=== PATIENT | male | born 1955 | race Caucasian/White ===

== ENCOUNTER 2018-08-13 04:38 | Observation (INO) ==
[2018-08-13] MEDS ORDERED: PIPERACILLIN/TAZOBACTAM 4.5 GM/120 ML BAG IV STA (05:14)
[2018-08-13] MEDS ORDERED: VANCOMYCIN HCL 2,750 MG in SODIUM CHLORIDE 0.9% 500 ML IV STA (05:14)
[2018-08-13] MEDS ORDERED: VANCOMYCIN CONSULT ACTIVE PRN (05:14)
[2018-08-13] MEDS ORDERED: SODIUM CHLORIDE 0.9% 1000ML 1,000 ML IV ONE (05:16)
[2018-08-13] MEDS ORDERED: NITROGLYCERIN 2% OINTMENT 30GM TUBE EXT STA (05:17)
[2018-08-13] MEDS ORDERED: ASPIRIN CHEW 324 MG PO STA (05:17)
[2018-08-13 05:54] LABS: Basophils # (auto) 0.02 K/uL (0-0.2); Basophils % (auto) 0.2 %; Eosinophils # (auto) 0.18 K/uL (0-0.5); Hematocrit (blood only) 43.9 % (42-52); Hemoglobin 14.6 g/dL (14.0-18.0); Immature Granulocytes % (auto) 1.1 %; Lymphocytes # (auto) 1.65 K/uL (1.2-3.4); Lymphocytes % (auto) 17.9 %; Mean Corpuscular Hgb Conc 33.3 g/dL (32-36); Mean Corpuscular Volume 94.6 fL (80-100); Mean Platelet Volume 9.9 fL (7.4-10.4); Monocytes % (auto) 10.9 %; Neutrophils # (auto) 6.26 K/uL (1.4-6.5); Neutrophils % (auto) 67.9 %; Platelet Count 220 K/uL (130-400); RDW Standard Deviation 51.6 fL (36.4-46.3); Red Blood Count 4.64 M/uL (4.7-6.1); White Blood Count 9.21 K/uL (4.8-10.8)
[2018-08-13 06:19] LABS: Albumin Level 3.3 gm/dl (3.4-5.0); BUN Creatinine Ratio 18.3 (10-20); Bilirubin,Total 0.3 mg/dl (0.2-1); Calcium 8.3 mg/dl (8.5-10.1); Creatinine Clr Calc Pharmacy 96.8 ml/min; Est GFR (African American) 91.8; Est GFR (Non-African American) 79.2; Globulin 3.4 gm/dl (2.5-4.0); Potassium 3.6 mmol/L (3.5-5.1); Total Protein 6.7 gm/dl (6.4-8.2)
--- NOTE | 2018-08-13 06:29 | XRay Report ---
XR knee LT 2V routine HISTORY: 63 years-old Male Free air acute left knee pain with possible soft tissue infection COMPARISON: None available TECHNIQUE: 2 views of the left knee FINDINGS: Moderate circumferential soft tissue swelling about the knee. No acute fracture, dislocation or opaqu e foreign body. No deep tissue air. Mild medial patellofemoral compartment osteoarthritis. IMPRESSION: Soft tissue swelling without acute fracture or dislocation. The above report was generated using voice recognition software. It may contain grammatical, syntax o r spelling errors. Electronically signed by: Filemon Wright M.D. 08/13/2018 6:26 AM
--- NOTE | 2018-08-13 07:02 | Emergency Department Note ---
Entered by Bernard Allen acting as a scribe for Liane Hughes MD History of Present Illness General Chief complaint: Infection Stated complaint: LEFT LEG INFECTION Source: patient Mode of arrival: ambulatory Limitations: no limitations History of Present Illness Onset (ago): unknown (Tonight) Location: knee (Left) Pain Consistency: + other (Increased) Relieved By: + none Associated symptoms: + other (Left knee pain); no fever/chills The patient is a 63 year old male who presents to the ED with his due to complaints of increased skin redness around his left knee which began tonight. Patient states the symptoms began with a �water� blister on his knee a couple of weeks ago. He states the blister has now resolved which is when the redness and loss of skin began. Patient adds that he does have mild left knee pain. Patient�s past medical history includes asthma which he takes Prednisone. He adds that he recently took Doxycycline for an infection but is not taking it currently. Patient denies any recent changes to his medications. 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 Patient� s PCP is from [place]. Patient denies fevers and a history of smoking/ diabetes. Home Medications Home Medications Medication Instructions Recorded Confirmed Type albuterol sulfate 1 vial CONTINUOUS NEBULIZATION Q4 08/13/18 08/13/18 History PRN albuterol sulfate 2 puff INHALATION Q4 PRN 08/13/18 08/13/18 History fluticasone-salmeterol 1 puff INHALATION BID 08/13/18 08/13/18 History levalbuterol tartrate 2 puff INHALATION QID PRN 08/13/18 08/13/18 History losartan 100 mg PO DAILY 08/13/18 08/13/18 History meloxicam 7.5 mg PO DAILY 08/13/18 08/13/18 History metaxalone 800 mg PO TID 08/13/18 08/13/18 History metoprolol succinate 25 mg PO DAILY 08/13/18 08/13/18 History mometasone 2 spray INTRANASAL DAILY 08/13/18 08/13/18 History montelukast 10 mg PO DAILY 08/13/18 08/13/18 History prednisone 40 mg PO DAILY 08/13/18 08/13/18 History tiotropium bromide 18 mcg INHALATION DAILY 08/13/18 08/13/18 History cephalexin [Keflex] 500 mg PO Q6H 8 Days #32 cap 08/15/18 Rx sulfamethoxazole-trimethoprim 1 tab PO Q12H #16 tab 08/15/18 Rx [Bactrim DS] Allergies Allergy/AdvReac Type Severity Reaction Status Date / Time amoxicillin AdvReac Intermediate made me Verified 08/13/18 15:28 feel weird Past Med/Surg History Medical History Chronic sinusitis Long-term current use of steroids Allergic bronchopulmonary aspergillosis JOANN (obstructive sleep apnea) Asthma Benign essential HTN Cellulitis (Acute) Ulcer of left knee (Acute) Asthma DVT prophylaxis HTN (hypertension) Hernia Family History Other Asthma Social History Current Living Situation: Spouse Feels Safe at Home: Yes Smoking Status: Never smoker Hx Alcohol Use: No Hx Substance Use: No Beliefs That Will Affect Care: None Preferred Language: [place]ian Communication Ability: Effective Review of Systems See HPI for pertinent positives & negatives. and A total of 10 systems reviewed and were otherwise negative Physical Exam Vital Signs Vital Signs - 24 hr 08/15/18 02:42 08/15/18 07:05 08/15/18 08:11 Temperature 36.8 C Temperature Source Oral Pulse Rate [Apical] Pulse Rate [Left Finger] 90 93 H 80 Respiratory Rate 18 18 18 Respiratory Effort / Characteristics Non-Labored Spontaneous Non-Labored Spontaneous Respiratory Depth Blood Pressure [Left Arm] Blood Pressure [Right Arm] 146/79 H Blood Pressure Mean [Right Arm] 101 Pulse Oximetry 92 97 99 Oxygen Delivery Method Room Air Room Air Room Air 08/15/18 09:00 08/15/18 14:03 08/15/18 14:22 Temperature 36.8 C Temperature Source Pulse Rate [Apical] 88 Pulse Rate [Left Finger] 91 H 80 Respiratory Rate 16 18 Respiratory Effort / Characteristics Non-Labored Non-Labored Spontaneous Respiratory Depth Normal Blood Pressure [Left Arm] 144/84 H Blood Pressure [Right Arm] 146/79 H Blood Pressure Mean [Right Arm] Pulse Oximetry 93 99 Oxygen Delivery Method Room Air Room Air Vital signs reviewed. General: Well-appearing obese male, in no significant distress. HEENT: No scleral icterus, PERRLA, neck supple. Atraumatic. Cardiovascular: Regular rate and rhythm, no extra sounds. Pulmonary: Clear to auscultation bilaterally, normal work of breathing. Abdomen: Soft, nontender, nondistended, positive bowel sounds. Musculoskeletal: Atraumatic, no peripheral edema. Neurologic: Patient awake alert and oriented x 3, full strength in all 4 extremities. Skin: 4cm ulceration to the left patella, erythematous rash proximal to ulceration in a graphic -like pattern, tracking to mid thigh with several large vesicles. Areas of vesicular disruption with underlying open skin. Otherwise warm and dry Course 0503: Past medical records reviewed. The patient was evaluated in room A4, and a complete history and physical examination were performed. 0645: Upon reevaluation, the patient will be further evaluated. I updated the patient on his findings and treatment plan. Patient is agreeable to the treatment plan. Patient will be assessed for further evaluation. Consultations Consultation #1: I reviewed the patient's case with Dr. Staton. He will evaluate the patient for further management. Time: 06:34 Administered Medications Discontinued Medications Aspirin (Aspirin) 243 mg PO NOW STA Stop: 08/13/18 05:18 Last Admin: 08/13/18 05:59 Dose: Not Given Fluticasone Propionate (Flonase) 2 sprays NA DAILY RASHIDA; Protocol Stop: 09/12/18 09:21 Last Admin: 08/15/18 08:12 Dose: 2 sprays Admin: 08/14/18 07:19 Dose: 2 sprays Admin: 08/13/18 10:41 Dose: 2 sprays Guaifenesin (Mucinex) 1,200 mg PO Q12 RASHIDA Stop: 09/12/18 09:59 Last Admin: 08/15/18 08:14 Dose: 1,200 mg Admin: 08/14/18 20:20 Dose: 1,200 mg Admin: 08/14/18 07:20 Dose: 1,200 mg Admin: 08/13/18 20:30 Dose: 1,200 mg Admin: 08/13/18 10:16 Dose: 1,200 mg Hydralazine HCl (Hydralazine Hcl) 10 mg IV Q6H PRN PRN Reason: htn Stop: 09/12/18 10:59 Last Admin: 08/14/18 07:19 Dose: 10 mg Admin: 08/13/18 23:22 Dose: 10 mg Sodium Chloride (Nss 1000ml) 1,000 mls @ 999 mls/hr IV .Q1H1M ONE Stop: 08/13/18 06:16 Last Infusion: 08/13/18 06:39 Dose: 0 mls/hr Admin: 08/13/18 05:42 Dose: 999 mls/hr Vancomycin HCl 2,750 mg/ (Sodium Chloride) 555 mls @ 200 mls/hr IV NOW STA Stop: 08/13/18 08:00 Last Infusion: 08/13/18 08:29 Dose: 0 mls/hr Admin: 08/13/18 05:42 Dose: 200 mls/hr Piperacillin Sod/Tazobactam Sod (Zosyn) 4.5 gm in 120 mls @ 200 mls/hr IV NOW STA Stop: 08/13/18 05:49 Last Infusion: 08/13/18 06:27 Dose: Infusion: 08/13/18 06:12 Dose: 0 mls/hr Admin: 08/13/18 05:42 Dose: 200 mls/hr Clindamycin Phosphate 900 mg/ (Dextrose) 106 mls @ 100 mls/hr IV Q8H [facility] Stop: 08/23/18 08:44 Last Infusion: 08/13/18 10:14 Dose: 0 mls/hr Admin: 08/13/18 09:00 Dose: 100 mls/hr Sodium Chloride (Nss 1000ml) 1,000 mls @ 80 mls/hr IV .[id number] [facility] Stop: 09/12/18 09:21 Last Infusion: 08/14/18 12:10 Dose: 0 mls/hr Admin: 08/14/18 08:49 Dose: 80 mls/hr Infusion: 08/14/18 08:49 Dose: 0 mls/hr Admin: 08/13/18 20:30 Dose: 80 mls/hr Infusion: 08/13/18 20:30 Dose: 80 mls/hr Admin: 08/13/18 09:59 Dose: 80 mls/hr Piperacillin Sod/Tazobactam (Sod 4.5 gm/ Dextrose) 120 mls @ 30 mls/hr IV Q8H [facility]; Protocol Stop: 08/23/18 15:59 Last Infusion: 08/15/18 12:15 Dose: 0 mls/hr Admin: 08/15/18 08:14 Dose: 30 mls/hr Infusion: 08/15/18 04:48 Dose: 0 mls/hr Admin: 08/14/18 23:27 Dose: 30 mls/hr Infusion: 08/14/18 19:30 Dose: 0 mls/hr Admin: 08/14/18 15:30 Dose: 30 mls/hr Infusion: 08/14/18 11:34 Dose: 0 mls/hr Admin: 08/14/18 07:18 Dose: 30 mls/hr Infusion: 08/14/18 04:58 Dose: 0 mls/hr Admin: 08/13/18 22:55 Dose: 30 mls/hr Infusion: 08/13/18 19:36 Dose: 0 mls/hr Admin: 08/13/18 15:36 Dose: 30 mls/hr Vancomycin HCl 1,500 mg/ (Sodium Chloride) 530 mls @ 200 mls/hr IV Q10H RASHIDA Stop: 08/14/18 15:00 Last Infusion: 08/14/18 14:40 Dose: 0 mls/hr Admin: 08/14/18 11:50 Dose: 200 mls/hr Infusion: 08/14/18 04:58 Dose: 0 mls/hr Admin: 08/14/18 01:30 Dose: 200 mls/hr Infusion: 08/13/18 18:50 Dose: 0 mls/hr Admin: 08/13/18 15:58 Dose: 200 mls/hr Vancomycin HCl 1,500 mg/ (Sodium Chloride) 530 mls @ 200 mls/hr IV Q12H RASHIDA Stop: 08/23/18 15:59 Last Admin: 08/15/18 12:16 Dose: 200 mls/hr Infusion: 08/15/18 02:39 Dose: 0 mls/hr Admin: 08/14/18 23:27 Dose: 200 mls/hr Ioversol (Optiray 320 100ml) 94 ml IV ONCE PRN PRN Reason: Interaction Checking Stop: 08/17/18 20:11 Last Admin: 08/13/18 20:13 Dose: 94 ml Levalbuterol HCl (Xopenex 1.25mg/3ml Neb) 1.25 mg NEB Q6R RASHIDA Stop: 09/12/18 09:21 Last Admin: 08/15/18 14:03 Dose: 1.25 mg Admin: 08/15/18 07:04 Dose: 1.25 mg Admin: 08/15/18 02:42 Dose: 1.25 mg Admin: 08/14/18 19:46 Dose: 1.25 mg Admin: 08/14/18 13:48 Dose: 1.25 mg Admin: 08/14/18 07:08 Dose: 1.25 mg Admin: 08/14/18 02:39 Dose: Not Given Admin: 08/13/18 19:35 Dose: 1.25 mg Admin: 08/13/18 14:14 Dose: 1.25 mg Admin: 08/13/18 11:37 Dose: Not Given Losartan Potassium (Cozaar) 100 mg PO DAILY RASHIDA Stop: 09/12/18 09:21 Last Admin: 08/15/18 08:13 Dose: 100 mg Admin: 08/14/18 07:20 Dose: 100 mg Admin: 08/13/18 10:16 Dose: 100 mg Metaxalone (Skelaxin) 800 mg PO TID RASHIDA Stop: 09/12/18 09:21 Last Admin: 08/15/18 13:51 Dose: 800 mg Admin: 08/15/18 08:13 Dose: 800 mg Admin: 08/14/18 20:20 Dose: 800 mg Admin: 08/14/18 14:02 Dose: 800 mg Admin: 08/14/18 07:20 Dose: 800 mg Admin: 08/13/18 20:30 Dose: 800 mg Admin: 08/13/18 13:39 Dose: 800 mg Admin: 08/13/18 10:16 Dose: 800 mg Metoprolol Succinate (Toprol Xl) 25 mg PO DAILY RASHIDA Stop: 09/12/18 09:21 Last Admin: 08/15/18 08:13 Dose: 25 mg Admin: 08/14/18 07:20 Dose: 25 mg Admin: 08/13/18 10:16 Dose: 25 mg Montelukast Sodium (Singulair) 10 mg PO DAILY RASHIDA Stop: 09/12/18 09:21 Last Admin: 08/15/18 08:13 Dose: 10 mg Admin: 08/14/18 07:20 Dose: 10 mg Admin: 08/13/18 10:16 Dose: 10 mg Nitroglycerin (Nitro-Bid 2%) 1 inch EXT NOW STA Stop: 08/13/18 05:18 Last Admin: 08/13/18 05:59 Dose: Not Given Prednisone (Prednisone) 20 mg PO DAILY RASHIDA Stop: 09/13/18 08:59 Last Admin: 08/15/18 08:13 Dose: 20 mg Admin: 08/14/18 07:20 Dose: 20 mg Prednisone (Prednisone) 20 mg PO NOW STA Stop: 08/15/18 10:04 Last Admin: 08/15/18 10:49 Dose: 20 mg Fluticasone/Salmeterol (Advair Diskus 500/50) 1 puffs INH BID RASHIDA Stop: 09/12/18 09:59 Last Admin: 08/15/18 08:12 Dose: 1 puffs Admin: 08/14/18 20:19 Dose: 1 puffs Admin: 08/14/18 07:19 Dose: 1 puffs Admin: 08/13/18 20:29 Dose: 1 puffs Admin: 08/13/18 10:15 Dose: 1 puffs Tiotropium [place] (Spiriva) 1 puffs INH DAILY RASHIDA Stop: 09/12/18 09:59 Last Admin: 08/15/18 08:14 Dose: 1 puffs Admin: 08/14/18 07:21 Dose: 1 puffs Admin: 08/13/18 10:15 Dose: 1 puffs Medical Decision Making Differential Diagnosis Differential diagnosis: Etiologies such as cellulitis, abscess, osteomyelitis, MRSA infection, DVT, necrotizing fasciitis, dermatitis, drug eruption, as well as others were entertained. Medical Records Attestation: I reviewed the patient's medical records. Home Medications Current Medication List: was personally reviewed by me Laboratory Data Attestation: I reviewed the patient's lab results. Result diagrams: 08/15/18 05:52 08/15/18 05:52 Lab Results 08/13/18 08/13/18 08/13/18 Range/Units 05:28 05:28 05:37 WBC 9.21 (4.8-10.8) K/uL RBC 4.64 L (4.7-6.1) M/uL Hgb 14.6 (14.0-18.0) g/dL Hct 43.9 (42-52) % MCV 94.6 (80-100) fL MCH 31.5 (25-34) pg MCHC 33.3 (32-36) g/dL RDW Std Deviation 51.6 H (36.4-46.3) fL RDW Coeff of Karishma 15.0 H (11.5-14.5) % Plt Count 220 (130-400) K/uL MPV 9.9 (7.4-10.4) fL Immature Gran % (Auto) 1.1 % Neut % (Auto) 67.9 % Lymph % (Auto) 17.9 % [place] % (Auto) 10.9 % Eos % (Auto) 2.0 % Baso % (Auto) 0.2 % Immature Gran # (Auto) 0.10 H (0.00-0.02) K/uL Neut # (Auto) 6.26 (1.4-6.5) K/uL Lymph # (Auto) 1.65 (1.2-3.4) K/uL [place] # (Auto) 1.00 H (0.11-0.59) K/uL Eos # (Auto) 0.18 (0-0.5) K/uL Baso # (Auto) 0.02 (0-0.2) K/uL Sodium 144 (136-145) mmol/L Potassium 3.6 (3.5-5.1) mmol/L Chloride 111 H (98-107) mmol/L Carbon Dioxide 25 (21-32) mmol/L Anion Gap 8.0 (3-11) BUN 18 (7-18) mg/dl Creatinine 1.00 (0.6-1.4) mg/dl Est Cr Clr Drug Dosing 96.8 ml/min Est GFR ( Amer) 91.8 Est GFR (Non-Af Amer) 79.2 BUN/Creatinine Ratio 18.3 (10-20) Glucose 107 H (70-99) mg/dl Lactate 2.1 H* (0.4-2.0) mmol/L Calcium 8.3 L (8.5-10.1) mg/dl Total Bilirubin 0.3 (0.2-1) mg/dl AST 16 (15-37) U/L ALT 45 (12-78) U/L Alkaline Phosphatase 67 (45-117) U/L Troponin I Cancelled Total Protein 6.7 (6.4-8.2) gm/dl Albumin 3.3 L (3.4-5.0) gm/dl Globulin 3.4 (2.5-4.0) gm/dl Albumin/Globulin Ratio 1.0 (0.9-2) Specimen Hemolysis Nasal Screen MRSA (PCR) (Negative) Vancomycin Trough (See Comment) mcg/ml 08/13/18 08/13/18 08/14/18 Range/Units 11:19 16:35 05:18 WBC 8.63 (4.8-10.8) K/uL RBC 4.52 L (4.7-6.1) M/uL Hgb 14.0 (14.0-18.0) g/dL Hct 42.7 (42-52) % MCV 94.5 (80-100) fL MCH 31.0 (25-34) pg MCHC 32.8 (32-36) g/dL RDW Std Deviation 51.9 H (36.4-46.3) fL RDW Coeff of Karishma 15.0 H (11.5-14.5) % Plt Count 178 (130-400) K/uL MPV 9.8 (7.4-10.4) fL Immature Gran % (Auto) % Neut % (Auto) % Lymph % (Auto) % [place] % (Auto) % Eos % (Auto) % Baso % (Auto) % Immature Gran # (Auto) (0.00-0.02) K/uL Neut # (Auto) (1.4-6.5) K/uL Lymph # (Auto) (1.2-3.4) K/uL [place] # (Auto) (0.11-0.59) K/uL Eos # (Auto) (0-0.5) K/uL Baso # (Auto) (0-0.2) K/uL Sodium (136-145) mmol/L Potassium (3.5-5.1) mmol/L Chloride (98-107) mmol/L Carbon Dioxide (21-32) mmol/L Anion Gap (3-11) BUN (7-18) mg/dl Creatinine (0.6-1.4) mg/dl Est Cr Clr Drug Dosing ml/min Est GFR ( Amer) Est GFR (Non-Af Amer) BUN/Creatinine Ratio (10-20) Glucose (70-99) mg/dl Lactate 0.9 (0.4-2.0) mmol/L Calcium (8.5-10.1) mg/dl Total Bilirubin (0.2-1) mg/dl AST (15-37) U/L ALT (12-78) U/L Alkaline Phosphatase (45-117) U/L Troponin I Total Protein (6.4-8.2) gm/dl Albumin (3.4-5.0) gm/dl Globulin (2.5-4.0) gm/dl Albumin/Globulin Ratio (0.9-2) Specimen Hemolysis Nasal Screen MRSA (PCR) Negative (Negative) Vancomycin Trough (See Comment) mcg/ml 08/14/18 08/14/18 08/15/18 Range/Units 05:18 11:31 05:52 WBC 8.60 (4.8-10.8) K/uL RBC 4.55 L (4.7-6.1) M/uL Hgb 14.2 (14.0-18.0) g/dL Hct 43.2 (42-52) % MCV 94.9 (80-100) fL MCH 31.2 (25-34) pg MCHC 32.9 (32-36) g/dL RDW Std Deviation 52.1 H (36.4-46.3) fL RDW Coeff of Karishma 15.0 H (11.5-14.5) % Plt Count 164 (130-400) K/uL MPV 9.6 (7.4-10.4) fL Immature Gran % (Auto) % Neut % (Auto) % Lymph % (Auto) % [place] % (Auto) % Eos % (Auto) % Baso % (Auto) % Immature Gran # (Auto) (0.00-0.02) K/uL Neut # (Auto) (1.4-6.5) K/uL Lymph # (Auto) (1.2-3.4) K/uL [place] # (Auto) (0.11-0.59) K/uL Eos # (Auto) (0-0.5) K/uL Baso # (Auto) (0-0.2) K/uL Sodium (136-145) mmol/L Potassium (3.5-5.1) mmol/L Chloride (98-107) mmol/L Carbon Dioxide (21-32) mmol/L Anion Gap (3-11) BUN (7-18) mg/dl Creatinine 0.89 (0.6-1.4) mg/dl Est Cr Clr Drug Dosing 108.8 ml/min Est GFR ( Amer) 104.7 Est GFR (Non-Af Amer) 90.4 BUN/Creatinine Ratio (10-20) Glucose (70-99) mg/dl Lactate (0.4-2.0) mmol/L Calcium (8.5-10.1) mg/dl Total Bilirubin (0.2-1) mg/dl AST (15-37) U/L ALT (12-78) U/L Alkaline Phosphatase (45-117) U/L Troponin I Total Protein (6.4-8.2) gm/dl Albumin (3.4-5.0) gm/dl Globulin (2.5-4.0) gm/dl Albumin/Globulin Ratio (0.9-2) Specimen Hemolysis Nasal Screen MRSA (PCR) (Negative) Vancomycin Trough 14.6 (See Comment) mcg/ml 08/15/18 Range/Units 05:52 WBC (4.8-10.8) K/uL RBC (4.7-6.1) M/uL Hgb (14.0-18.0) g/dL Hct (42-52) % MCV (80-100) fL MCH (25-34) pg MCHC (32-36) g/dL RDW Std Deviation (36.4-46.3) fL RDW Coeff of Karishma (11.5-14.5) % Plt Count (130-400) K/uL MPV (7.4-10.4) fL Immature Gran % (Auto) % Neut % (Auto) % Lymph % (Auto) % [place] % (Auto) % Eos % (Auto) % Baso % (Auto) % Immature Gran # (Auto) (0.00-0.02) K/uL Neut # (Auto) (1.4-6.5) K/uL Lymph # (Auto) (1.2-3.4) K/uL [place] # (Auto) (0.11-0.59) K/uL Eos # (Auto) (0-0.5) K/uL Baso # (Auto) (0-0.2) K/uL Sodium (136-145) mmol/L Potassium (3.5-5.1) mmol/L Chloride (98-107) mmol/L Carbon Dioxide (21-32) mmol/L Anion Gap (3-11) BUN (7-18) mg/dl Creatinine 0.94 (0.6-1.4) mg/dl Est Cr Clr Drug Dosing 103.0 ml/min Est GFR ( Amer) 98.9 Est GFR (Non-Af Amer) 85.3 BUN/Creatinine Ratio (10-20) Glucose (70-99) mg/dl Lactate (0.4-2.0) mmol/L Calcium (8.5-10.1) mg/dl Total Bilirubin (0.2-1) mg/dl AST (15-37) U/L ALT (12-78) U/L Alkaline Phosphatase (45-117) U/L Troponin I Total Protein (6.4-8.2) gm/dl Albumin (3.4-5.0) gm/dl Globulin (2.5-4.0) gm/dl Albumin/Globulin Ratio (0.9-2) Specimen Hemolysis Nasal Screen MRSA (PCR) (Negative) Vancomycin Trough (See Comment) mcg/ml Imaging Data Attestation: I personally reviewed and interpreted this imaging study as follows : My Impression: Knee x-ray shows no fracture, no dislocation, and no free air Blood Pressure Blood Pressure Findings: Elevated blood pressure Blood Pressure Disposition: further management by hospitalist MICHELLE Narrative This patient was evaluated and appeared to be in no significant distress. Physical examination is concerning for a large ulceration over the left patella with new graphic-like erythematous rash with large vesicles. Most of the vesicles have ruptured with an underlying open skin draining serous fluid. The patient is afebrile with a normal white blood cell count. He states the rash to the distal left thigh is new over the last 24 hours. The ulceration over the patella has been there for several weeks. X-ray of the knee was performed and reveals no acute fracture or dislocation. There is no evidence of subcutaneous free air. Patient was medicated with IV vancomycin and IV Zosyn. Consultation with the medicine service was placed. Patient will be observed in the hospital for further management. He is aware of the plan and agrees. Impression & Plan Cellulitis, Skin desquamation, Ulcer of left knee Discharge Plan Visit Data *Final* Discharge Date/Time: 08/13/18 08:38 Chief Complaint: Infection Stated Complaint: LEFT LEG INFECTION ED Provider: Liane Hughes Discharge Problem: Cellulitis, Skin desquamation, Ulcer of left knee Patient Disposition: Admitted As Inpatient Discharge Instructions Interventions: ED Discharge Assessment Last Done: 08/13/18 08:38 The scribe's documentation has been prepared under my direction and personally reviewed by me in its entirety. I confirm that the note above accurately reflects all work, treatment, procedures, and medical decision making performed by me.
--- NOTE | 2018-08-13 07:55 | History & Physical Report ---
Addendum entered and electronically signed by Velia Ruvalcaba PA-C 08/13/18 09:04: Addendum (Blank) Addendum August 13, 2018 09:03 LA elevated at 2.1, will recheck later this morning Start NSS at 80 ml/hr General surgery consult NPO for now, if no surgical needs then will give diet. Original Note: Date of Service August 13, 2018 Assessment & Plan (1) Cellulitis: (2) Ulcer of left knee: - Admit to med/surg for obs -Patient was started on Zosyn and Vanco in the ER, will continue vancomycin and clindamycin IV -WBC is 9K, afebrile, BP elevated at 178/99, HR = 110. -Consult wound, patient will need outpatient referral -Wound culture of knee, check MRSA swab. -Pain control with Tylenol -Patient is on chronic prednisone for respiratory issues. -X-ray reviewed, soft tissue swelling without acute fracture or foreign body. 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 Not requiring supplemental O2. -Consider CXR if change in sx. -When asked about history of COPD the patient says possibly, unknown if the patient has had formal PFTs. He follows with [facility] pulmonology/extension work director as outpatient. 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 (5) JOANN (obstructive sleep apnea): -Does not wear supplemental O2 or CPAP. (6) Allergic bronchopulmonary aspergillosis: -Patient reports infection occurred a few years ago, he has been following with an extension work director, Dr. Mobley, patient has never required bronchoscopy. (7) Long-term current use of steroids: -Patient has been on prednisone 40 mg to 5 mg over the past 5-6 years, he has been unable to wean off this completely. (8) Chronic sinusitis: -Patient uses nbfz-hzi-zznugri medications for symptom relief, currently stable (9) DVT prophylaxis: History of Present Illness Chief Complaint: Left knee wound Primary Care Provider: Martinez Bardales This is a 63 yo M with PMHx of severe persistent asthma, COPD on chronic prednisone for 5-6 years, hx of allergic bronchopulmonary aspergillosis, chronic sinusitis, sleep apnea, mixed rhinitis, and hypertension who presents with left knee wound. Pt reports his knee originally developed a blister "a few weeks" ago, and that he had used gauze and Porters salve to help reduce the blister and the soreness. He has been working to get this to heal since then and overnight his leg developed a larger blister on the thigh where the skin had sloughed off, and also developed surrounding reddness over the anterior and lateral portion of the thigh. He does have swelling in the lower extremities bilaterally. Pt denies fevers, sweats or chills. His is present at bedside and assists with a history. He has not taken any other medication for pain or inflammation. This morning patient has missed his morning meds because he presented to the ER around 5 AM. Pt has been started on vancomycin and zosyn in the ER. Xray of the knee is showing soft tissue swelling without acute fracture. His BP is elevated at 178/ 99 and HR is elevated at ~ 110. No fevers. WBC is 9K. He has no electrolyte abnormalities. Allergies Allergy/AdvReac Type Severity Reaction Status Date / Time amoxicillin AdvReac Intermediate made me Verified 08/13/18 15:28 feel weird Home Medications Home Medications Medication Instructions Recorded Confirmed Type albuterol sulfate 1 vial CONTINUOUS NEBULIZATION Q4 08/13/18 08/13/18 History PRN albuterol sulfate [Ventolin HFA] 2 puff INHALATION Q4 PRN 08/13/18 08/13/18 History fluticasone-salmeterol [Advair 1 puff INHALATION BID 08/13/18 08/13/18 History Diskus] levalbuterol tartrate [Xopenex HFA] 2 puff INHALATION QID PRN 08/13/18 08/13/18 History losartan 100 mg PO DAILY 08/13/18 08/13/18 History meloxicam 7.5 mg PO DAILY 08/13/18 08/13/18 History metaxalone 800 mg PO TID 08/13/18 08/13/18 History metoprolol succinate 25 mg PO DAILY 08/13/18 08/13/18 History mometasone 2 spray INTRANASAL DAILY 08/13/18 08/13/18 History montelukast 10 mg PO DAILY 08/13/18 08/13/18 History prednisone 40 mg PO DAILY 08/13/18 08/13/18 History tiotropium bromide [Spiriva with 18 mcg INHALATION DAILY 08/13/18 08/13/18 History HandiHaler] Past Med/Surg History Medical History DVT prophylaxis Chronic sinusitis Long-term current use of steroids Allergic bronchopulmonary aspergillosis JOANN (obstructive sleep apnea) Asthma Benign essential HTN Cellulitis (Acute) Ulcer of left knee (Acute) Asthma HTN (hypertension) Hernia Family History Other Asthma Social History Current Living Situation: Spouse Other Information That Helps Us Care for You: No Feels Safe at Home: Yes Safety Concerns: Feels Safe At This Time Smoking Status: Never smoker Hx Alcohol Use: No Hx Substance Use: No Beliefs That Will Affect Care: None Preferred Language: Austrian Communication Ability: Effective Physical Exam 2 Vital Signs (Past 24 Hours): Last Vital Signs Temp 36.4 C L 08/13/18 04:49 Pulse 110 H 08/13/18 07:48 Resp 16 08/13/18 07:48 BP 178/99 H 08/13/18 07:48 Pulse Ox 98 08/13/18 07:48 Results & Data Diagnostic Findings XR knee LT 2V routine HISTORY: 63 years-old Male Free air acute left knee pain with possible soft tissue infection COMPARISON: None available TECHNIQUE: 2 views of the left knee FINDINGS: Moderate circumferential soft tissue swelling about the knee. No acute fracture , dislocation or opaque foreign body. No deep tissue air. Mild medial patellofemoral compartment osteoarthritis. IMPRESSION: Soft tissue swelling without acute fracture or dislocation. Supervising Physician Co-Signing Physician Notes PA Physician Supervision Note: I interviewed and examined the patient. Discussed with Jazmin NOYOLA and agree with findings and plan as documented in the note. Any exceptions or clarifications are listed here: None I independently did interview and examine the patient in the ER the presence of his I also revisited the patient up in his room. The patient has a acute onset of a left lateral thigh erythema burning pain and bullae which are draining serous fluid. There is some discoloration of his skin which looks to be a possible cellulitis. The patient has had a pre-existing ulcerative lesion on his knee for some time. Patient was feeling ill with chills and fatigue the ER his lactic acid was normal but clinically is leg showed sloughing of skin and fairly substantial changes concern for necrotizing fasciitis. Patient been on chronic prednisone for his asthma. Patient is admitted to the hospital he is on vancomycin Zosyn and clindamycin. Surgical consultation undertaken as well as possible plastic surgery consultation Documented By: Bernard Jordan _ (1) Cellulitis Laterality: Site of cellulitis: Site of cellulitis of extremity: Site of cellulitis of trunk: (2) Ulcer of left knee Non-pressure ulcer stage:
[2018-08-13] MEDS ORDERED: CLINDAMYCIN 900 MG in DEXTROSE 5% 100 ML IV SCH (08:45)
[2018-08-13] MEDS ORDERED: ONDANSETRON INJ 2 MG/ML 2 ML VIAL IV PRN (09:22)
[2018-08-13] MEDS ORDERED: ALBUTEROL HFA 8 GM INHALER INH PRN (09:22)
[2018-08-13] MEDS ORDERED: LEVALBUTEROL TARTRATE 15 GM HFA.AER.AD INH PRN (09:22)
[2018-08-13] MEDS ORDERED: ACETAMINOPHEN 325 MG TAB PO PRN (09:22)
[2018-08-13] MEDS ORDERED: ALBUTEROL 0.083% NEBU SOLN 3 ML VIAL INH PRN (09:22)
[2018-08-13] MEDS: SODIUM CHLORIDE 0.9% 1000ML 1,000 ML IV SCH ×2 (09:59→20:30)
[2018-08-13] MEDS: FLUTICASONE/SALMETEROL (ADVAIR) 500/50 INH 14 PUFF INH SCH ×2 (10:15→20:29)
[2018-08-13] MEDS: TIOTROPIUM BROMIDE 5 PUFF/90 MCG INH INH SCH (10:15)
[2018-08-13] MEDS: METAXALONE 800 MG TABLET PO SCH ×3 (10:16→20:30)
[2018-08-13] MEDS: MONTELUKAST SODIUM 10 MG TABLET PO SCH (10:16)
[2018-08-13] MEDS: LOSARTAN POTASSIUM 50 MG TAB PO SCH (10:16)
[2018-08-13] MEDS: METOPROLOL SUCC 25MG EXT REL TAB PO SCH (10:16)
[2018-08-13] MEDS: guaiFENesin 600 MG TABCR PO SCH ×2 (10:16→20:30)
[2018-08-13] MEDS: FLUTICASONE PROPIONATE NA SPR 16 GM BTL SCH (10:41)
[2018-08-13] MEDS: LEVALBUTEROL HCL 1.25 MG/3 ML NEB NEB SCH ×3 (11:37→19:35)
--- NOTE | 2018-08-13 13:35 | Surgery Consultation ---
Date of Consultation August 13, 2018 Assessment & Plan (1) Cellulitis: Patient seen and examined with Dr. Dhaliwal. At this time no indication for surgical intervention. Recommend further workup- CT scan, wound care consult, may consider consulting orthopedics. IV abx per primary service. General Surgery will continue to follow. Please call with questions or concerns. Supervising Physician Co-Signing Physician Notes Pnt S&E, labs and imaging reviewed, agree with above. 63 year old male on steroids for lung disease, admitted with cellulititis to [facility]. Wound overlying left patella of unknown source for past month, pain and erythema started yesterday. Some blistering. Pain well controlled, some blotchy erythema with bullae and blistering. No significant edema, no crepitus. No pain out of proportion to exam. wbc normal, no left shift. lactate elevated. vitals normal. knee xray normal. chronic lle wound with cellulitis and bullae. Low suspicion for NSTI at this time. recommend CT extremity wound care consult broad spectrum abx, wound culture no surgical intervention at this time if signs of NSTI develop, recommend transfer to tertiary center due to extensive resection, wound care, an recovery that will be needed surgery will follow History of Present Illness Attending Physician: Bernard Jordan MD History of Present Illness Mr. Gao is a 63-year-old male who presented to [facility] ED for evaluation of increasing redness around non-healing wound of left knee. Patient reports that he has had this wound on his left knee for at least several weeks. He states that the wound began as a "water blister." He denies trauma or injury to his left knee. Patient is on chronic prednisone for breathing problems- reports that he had been on 5mg for a period of time, but daily dose was increased to 40mg. Patient recently completed a course of Doxycyline for possible respiratory infection. Patient denies fevers or chills. Allergies Allergy/AdvReac Type Severity Reaction Status Date / Time amoxicillin Allergy Intermediate max me Verified 08/13/18 09:43 feel weird Home Medications Home Medications Medication Instructions Recorded Confirmed Type albuterol sulfate 1 vial CONTINUOUS NEBULIZATION Q4 08/13/18 08/13/18 History PRN albuterol sulfate [Ventolin HFA] 2 puff INHALATION Q4 PRN 08/13/18 08/13/18 History fluticasone-salmeterol [Advair 1 puff INHALATION BID 08/13/18 08/13/18 History Diskus] levalbuterol tartrate [Xopenex HFA] 2 puff INHALATION QID PRN 08/13/18 08/13/18 History losartan 100 mg PO DAILY 08/13/18 08/13/18 History meloxicam 7.5 mg PO DAILY 08/13/18 08/13/18 History metaxalone 800 mg PO TID 08/13/18 08/13/18 History metoprolol succinate 25 mg PO DAILY 08/13/18 08/13/18 History mometasone 2 spray INTRANASAL DAILY 08/13/18 08/13/18 History montelukast 10 mg PO DAILY 08/13/18 08/13/18 History prednisone 40 mg PO DAILY 08/13/18 08/13/18 History tiotropium bromide [Spiriva with 18 mcg INHALATION DAILY 08/13/18 08/13/18 History HandiHaler] Patient History Medical History DVT prophylaxis Chronic sinusitis Long-term current use of steroids Allergic bronchopulmonary aspergillosis JOANN (obstructive sleep apnea) Asthma Benign essential HTN Cellulitis (Acute) Ulcer of left knee (Acute) Asthma HTN (hypertension) Hernia Family History Other Asthma Social History Current Living Situation: Spouse Other Information That Helps Us Care for You: No Feels Safe at Home: Yes Safety Concerns: Feels Safe At This Time Smoking Status: Never smoker Hx Alcohol Use: No Hx Substance Use: No Beliefs That Will Affect Care: None Preferred Language: Portuguese Communication Ability: Effective Physical Exam 2 Vital Signs (Past 24 Hours): Last Vital Signs Temp 36.3 C L 08/13/18 08:50 Pulse 98 H 08/13/18 11:14 Resp 18 08/13/18 08:50 BP 150/82 H 08/13/18 11:14 Pulse Ox 95 08/13/18 08:50 Skin: + erythema (area of erythema marked with skin marker. ) left knee- non-healing wound,non-tender with palpation, skin bullae, no drainage appreciated on physical examination. _ (1) Cellulitis Laterality: Site of cellulitis: Site of cellulitis of extremity: Site of cellulitis of trunk:
[2018-08-13] MEDS ORDERED: PIPERACILL/TAZOBAC CONSULT ACTIVE PRN (15:04)
[2018-08-13] MEDS: PIPERACILLIN/TAZOBACTAM 4.5 GM in DEXTROSE 5% 100 ML IV SCH ×2 (15:36→22:55)
--- NOTE | 2018-08-13 15:49 | Pharmacy Report ---
Pharmacy Abx Initial Consult - Date of Service August 13, 2018 - Pharmacy Dosing Scope Date of Consult: 08/13 Consultation requested by: Amalia Ruvalcaba, PAC Pharmacy is consulted to initiate vancomycin and Zosyn IV dosing therapy, order appropriate labs and adjust drug dose/frequency. - Subjective The patient is a 63 year old M admitted on 08/13/18 07:58. - Objective Height: 5 ft 11 in Weight: 116.3 kg (BMI = 35.8) Vital Signs (Past 12hrs): Vital Signs Temp Pulse Pulse Resp BP BP BP 08/13/18 14:14 106 H 18 08/13/18 11:14 98 H 150/82 H 08/13/18 08:50 36.3 C L 109 H 18 199/98 H 08/13/18 07:48 110 H 16 178/99 H 08/13/18 06:30 100 H 17 171/101 H 08/13/18 05:48 101 H 14 192/99 H 08/13/18 04:49 36.4 C L 107 H 19 178/94 H Pulse Ox 08/13/18 14:14 94 08/13/18 11:14 08/13/18 08:50 95 08/13/18 07:48 98 08/13/18 06:30 96 08/13/18 05:48 96 08/13/18 04:49 95 Lab Results (24hrs): Laboratory Tests (24 Hours) 08/13/18 08/13/18 05:28 05:28 WBC 9.21 Neut # (Auto) 6.26 Creatinine 1.00 Est Cr Clr Drug Dosing 96.8 Micro Results: 08/13/18 05:37 Blood Culture - Pending Blood 08/13/18 05:28 Blood Culture - Pending Blood - Risk Factors for Resistance * Immunocompromised (chronic steroid therapy) - Assessment & Plan Assessment 63 year old M admitted with severe leg cellulitis, with purulence noted. I spoke with Velia regarding initial antibiotics for vanc + clinda. Patient does not have an amoxicillin allergy and may need gram negative coverage w/ risk factors, so therapy is being changed to vanc + Zosyn (which is what patient received in the ED). MRSA swab has been ordered as the patient may have some pulmonary involvement as well. Plan Vancomycin IV * Estimated PK Parameters: Vd 0.61 L/kg, Karlos 0.085 hr-1, t1/2 8.2 hr * Loading dose: 2750 mg (23.7 mg/kg) - given @ 0600 in the ED * Maintenance dose: 1500 mg IV (13 mg/kg) every 10 hours * Goal trough level : 15 to 20 mcg/mL until pulm component r/o * Trough level ordered for 08/14/18 prior to the 4th dose * A less than traditional dose and/or extended dosing interval has/have been selected due to likelihood of drug accumulation in obese patient Piperacillin/tazobactam * 4.5 g IV extended infusion every 8 hours for CrCl greater than 20 mL/min * Aggressive dosing selected due to BMI 35 or more Pharmacy will continue to follow and will adjust dose/frequency as necessary. Thank you.
[2018-08-13] MEDS: VANCOMYCIN HCL 1,500 MG in SODIUM CHLORIDE 0.9% 500 ML IV SCH (15:58)
[2018-08-13] MEDS ORDERED: IOVERSOL 100ml IV PRN (20:12)
--- NOTE | 2018-08-13 21:08 | CT Scan Report ---
LEFT KNEE CT CT DOSE: 268.85 mGy.cm HISTORY: Left knee infection. Eval extent of cellulitis, necrotizing fasc? TECHNIQUE: Multiaxial CT images of the left knee were performed and reformatted in the sagittal and c oronal plane without the use of contrast. A dose lowering technique was utilized adhering to the bird Nicholson. COMPARISON: Left knee 08/13/2018. FINDINGS: There is left anterolateral distal thigh and prepatellar skin thickening with subcutaneous edema. No loculated fluid collections to suggest an abscess at this time. There is suggestion of a fe w scattered skin blisters at this location. Trace knee effusion. The muscle compartments appear intac t. No soft tissue gas identified. Mild scattered calcified plaque within the femoral and popped arter ies. No significant stenosis of the major arterial structures. No fracture or dislocation within the left knee. No bony destruction to suggest osteomyelitis. Mild cartilage space narrowing within the me dial compartment of the left knee consistent with osteoarthritis. No radiopaque foreign bodies. IMPRESSION: 1. Left anterolateral distal thigh and prepatellar skin thickening, subcutaneous edema, and skin blis ters consistent with the patient's history of cellulitis. No loculated fluid collections to suggest a n abscess. No soft tissue gas. 2. Trace knee effusion. 3. No bony abnormality. Electronically signed by: Parish Arias M.D. 08/13/2018 9:06 PM
[2018-08-13] MEDS: HydrALAZINE HCL 20 MG/ML VIAL IV PRN (23:22)
[2018-08-14] MEDS: VANCOMYCIN HCL 1,500 MG in SODIUM CHLORIDE 0.9% 500 ML IV SCH ×3 (01:30→23:27)
[2018-08-14] MEDS: LEVALBUTEROL HCL 1.25 MG/3 ML NEB NEB SCH ×4 (02:39→19:46)
[2018-08-14 05:55] LABS: Hematocrit (blood only) 42.7 % (42-52); Mean Corpuscular Hgb Conc 32.8 g/dL (32-36); Mean Corpuscular Volume 94.5 fL (80-100); Mean Platelet Volume 9.8 fL (7.4-10.4); Platelet Count 178 K/uL (130-400); RDW Standard Deviation 51.9 fL (36.4-46.3); Red Blood Count 4.52 M/uL (4.7-6.1); White Blood Count 8.63 K/uL (4.8-10.8)
[2018-08-14 06:29] LABS: Creatinine Clr Calc Pharmacy 108.8 ml/min; Est GFR (African American) 104.7; Est GFR (Non-African American) 90.4
[2018-08-14] MEDS: PIPERACILLIN/TAZOBACTAM 4.5 GM in DEXTROSE 5% 100 ML IV SCH ×3 (07:18→23:27)
[2018-08-14] MEDS: HydrALAZINE HCL 20 MG/ML VIAL IV PRN (07:19)
[2018-08-14] MEDS: FLUTICASONE/SALMETEROL (ADVAIR) 500/50 INH 14 PUFF INH SCH ×2 (07:19→20:19)
[2018-08-14] MEDS: FLUTICASONE PROPIONATE NA SPR 16 GM BTL SCH (07:19)
[2018-08-14] MEDS: METOPROLOL SUCC 25MG EXT REL TAB PO SCH (07:20)
[2018-08-14] MEDS: MONTELUKAST SODIUM 10 MG TABLET PO SCH (07:20)
[2018-08-14] MEDS: guaiFENesin 600 MG TABCR PO SCH ×2 (07:20→20:20)
[2018-08-14] MEDS: METAXALONE 800 MG TABLET PO SCH ×3 (07:20→20:20)
[2018-08-14] MEDS: predniSONE 20 MG TAB PO SCH (07:20)
[2018-08-14] MEDS: LOSARTAN POTASSIUM 50 MG TAB PO SCH (07:20)
[2018-08-14] MEDS: TIOTROPIUM BROMIDE 5 PUFF/90 MCG INH INH SCH (07:21)
[2018-08-14] MEDS: SODIUM CHLORIDE 0.9% 1000ML 1,000 ML IV SCH (08:49)
[2018-08-14] MEDS ORDERED: predniSONE 20 MG TAB PO SCH (09:00)
[2018-08-14] MEDS ORDERED: VANCOMYCIN TROUGH ONE (11:30)
--- NOTE | 2018-08-14 12:17 | Pharmacy Report ---
Pharmacy Abx Dose Short Note - Date of Service August 14, 2018 - Assessment & Plan Assessment 63 year old M receiving vancomycin and Zosyn for treatment of purulent leg cellulitis w/ possible pulmonary component as well Day # 2 of antimicrobial therapy. MRSA swab negative SCr remains stable at 0.89 mg/dL Plan Vancomycin * Trough level of 14.6 mcg/mL is therapeutic; however, I'm anticipating accumulation with the patient's elevated BMI * Change to 1500 mg IV every 12 hours * Goal trough level for cellulitis : 10 to 15 mcg/mL; lower goal range now that MRSA pneumonia is r/o * Will plan to repeat trough level Sunday or Sunday, depending on plan for IV abx duration * Monitor SCr closely with several risk factors for nephrotoxicity Zosyn * Continue 4.5 gm IV q8h for CrCl > 20 mL/min and elevated BMI Pharmacy will continue to follow and will adjust dose/frequency as necessary. Thank you.
--- NOTE | 2018-08-14 13:23 | Surgery Progress Note ---
Date of Service August 14, 2018 Assessment & Plan (1) Cellulitis: Patient seen and examined with Dr. Dhaliwal. CT scan of knee reviewed by Dr. Dhaliwal. No surgical intervention indicated. Continue local wound care. General Surgery will sign off at this time. Please call with questions or concerns. Subjective Patient resting comfortably in bed- dressings have been placed on left knee- improvement in erythema. Physical Exam 2 Vital Signs (Past 24 Hours): Last Vital Signs Temp 36.3 C L 08/14/18 08:30 Pulse 86 08/14/18 09:11 Resp 20 08/14/18 08:30 BP 164/84 H 08/14/18 09:11 Pulse Ox 96 08/14/18 08:30 Skin: dressings peeled back to view wound- area of erythema has receded a bit. _ (1) Cellulitis Laterality: Site of cellulitis: Site of cellulitis of extremity: Site of cellulitis of trunk:
--- NOTE | 2018-08-14 14:11 | Hospitalist Progress Note ---
Date of Service August 14, 2018 Assessment & Plan (1) Cellulitis: (2) Ulcer of left knee: - Admit to med/surg for obs -Patient was started on Zosyn and Vanco in the ER, will continue vancomycin and clindamycin IV -WBC is 9K, afebrile, BP elevated at 178/99, HR = 110. -Consult wound, patient will need outpatient referral -bc pending, MRSA negative. -Pain control with Tylenol -Patient is on chronic prednisone for respiratory issues. -X-ray reviewed, soft tissue swelling without acute fracture or foreign body. (3) Benign essential HTN: - continues to be somewhat hypertensive - continue losartan 100 mg daily, metoprolol succinate 25 mg daily -IV hydralazine prn for elevated BP (4) Asthma: -Moderate persistent, continue levalbuterol nebulizers, Advair, Spiriva inh -Add mucinex, tessalon pearls with pt cough and congestion today but pt reports this is about his baseline. Not requiring supplemental O2. -Consider CXR if change in sx. -When asked about history of COPD the patient says possibly, unknown if the patient has had formal PFTs. He follows with [facility] pulmonology/disability rater as outpatient. 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 (5) JOANN (obstructive sleep apnea): -Does not wear supplemental O2 or CPAP. (6) Allergic bronchopulmonary aspergillosis: -Patient reports infection occurred a few years ago, he has been following with an disability rater, Dr. Mobley, patient has never required bronchoscopy. (7) Long-term current use of steroids: -Patient has been on prednisone 40 mg to 5 mg over the past 5-6 years, he has been unable to wean off this completely. (8) Chronic sinusitis: - Patient uses [id number] medications for symptom relief, currently stable (9) DVT prophylaxis: SCDs Subjective Mr. Gao is feeling much better today. He has been up walking. His pain is well controlled. Review of Systems All systems reviewed & are unremarkable except as noted in HPI & below Physical Exam 2 Vital Signs (Past 24 Hours): Last Vital Signs Temp 36.3 C L 08/14/18 08:30 Pulse 91 H 08/14/18 13:48 Resp 18 08/14/18 13:48 BP 164/84 H 08/14/18 09:11 Pulse Ox 97 08/14/18 13:48 Physical Exam: General: no distress Eyes: normal inspection, PERLL Respiratory: chest non tender, clear to auscultation, normal breath sounds, no respiratory distress, no accessory muscle use Cardiac: regular rate and rhythm, no rub or gallop, no murmur, no edema, no jvd GI/: active bowel sounds, no abd pain or tenderness, soft, non distended Extremities: normal range of motion, normal strength, non tender Neuro/Psych: alert and oriented x 3, normal mood and affect Skin: normal color, dry, left leg with receding erythema, open sores with minimal drainage Results & Data Laboratory Results Abnormal lab results 08/14/18 Range/Units 05:18 RBC 4.52 L (4.7-6.1) M/uL RDW Std Deviation 51.9 H (36.4-46.3) fL RDW Coeff of Karishma 15.0 H (11.5-14.5) % _ (1) Cellulitis Laterality: Site of cellulitis: Site of cellulitis of extremity: Site of cellulitis of trunk: (2) Ulcer of left knee Non-pressure ulcer stage:
[2018-08-15] MEDS: LEVALBUTEROL HCL 1.25 MG/3 ML NEB NEB SCH ×3 (02:42→14:03)
[2018-08-15 06:02] LABS: Hematocrit (blood only) 43.2 % (42-52); Hemoglobin 14.2 g/dL (14.0-18.0); Mean Corpuscular Hgb Conc 32.9 g/dL (32-36); Mean Corpuscular Volume 94.9 fL (80-100); Mean Platelet Volume 9.6 fL (7.4-10.4); Platelet Count 164 K/uL (130-400); RDW Standard Deviation 52.1 fL (36.4-46.3); Red Blood Count 4.55 M/uL (4.7-6.1)
[2018-08-15 06:31] LABS: Est GFR (African American) 98.9; Est GFR (Non-African American) 85.3
[2018-08-15] MEDS: FLUTICASONE PROPIONATE NA SPR 16 GM BTL SCH (08:12)
[2018-08-15] MEDS: FLUTICASONE/SALMETEROL (ADVAIR) 500/50 INH 14 PUFF INH SCH (08:12)
[2018-08-15] MEDS: MONTELUKAST SODIUM 10 MG TABLET PO SCH (08:13)
[2018-08-15] MEDS: predniSONE 20 MG TAB PO SCH (08:13)
[2018-08-15] MEDS: METOPROLOL SUCC 25MG EXT REL TAB PO SCH (08:13)
[2018-08-15] MEDS: LOSARTAN POTASSIUM 50 MG TAB PO SCH (08:13)
[2018-08-15] MEDS: METAXALONE 800 MG TABLET PO SCH ×2 (08:13→13:51)
[2018-08-15] MEDS: guaiFENesin 600 MG TABCR PO SCH (08:14)
[2018-08-15] MEDS: TIOTROPIUM BROMIDE 5 PUFF/90 MCG INH INH SCH (08:14)
[2018-08-15] MEDS: PIPERACILLIN/TAZOBACTAM 4.5 GM in DEXTROSE 5% 100 ML IV SCH (08:14)
[2018-08-15] MEDS ORDERED: predniSONE 20 MG TAB PO STA (10:03)
[2018-08-15] MEDS: VANCOMYCIN HCL 1,500 MG in SODIUM CHLORIDE 0.9% 500 ML IV SCH (12:16)
--- NOTE | 2018-08-15 14:04 | Discharge Summary ---
Date of Service August 15, 2018 Admission HPI Per Admitting Provider This is a 63 yo M with PMHx of severe persistent asthma, COPD on chronic prednisone for 5-6 years, hx of allergic bronchopulmonary aspergillosis, chronic sinusitis, sleep apnea, mixed rhinitis, and hypertension who presents with left knee wound. Pt reports his knee originally developed a blister "a few weeks" ago, and that he had used gauze and Porters salve to help reduce the blister and the soreness. He has been working to get this to heal since then and overnight his leg developed a larger blister on the thigh where the skin had sloughed off, and also developed surrounding reddness over the anterior and lateral portion of the thigh. He does have swelling in the lower extremities bilaterally. Pt denies fevers, sweats or chills. His is present at bedside and assists with a history. He has not taken any other medication for pain or inflammation. This morning patient has missed his morning meds because he presented to the ER around 5 AM. Pt has been started on vancomycin and zosyn in the ER. Xray of the knee is showing soft tissue swelling without acute fracture. His BP is elevated at 178/ 99 and HR is elevated at ~ 110. No fevers. WBC is 9K. He has no electrolyte abnormalities. Principal Diagnosis Cellulitis Discharge Exam Constitutional WD/WN, vitals as above Respiratory no respiratory distress, no labored breathing and does not use accessory muscles expiratory wheezes bilaterally Cardiovascular RRR, no murmur, no edema Gastrointestinal (Abdomen) normal bowel sounds, soft, nontender, no hepatosplenomegaly Musculoskeletal no cyanosis or clubbing, extremities motor strength 5/5 Skin left leg erythema resolved. Wounds on knee and thigh with small amount of serous drainage. Discharge Data Allergies Allergy/AdvReac Type Severity Reaction Status Date / Time amoxicillin AdvReac Intermediate made me Verified 08/13/18 15:28 feel weird Consultations 08/13/18 06:59 ED Decision to Admit Stat 08/13/18 09:22 Consult General Surgery Routine Ordered Studies 08/13/18 15:25 CT knee LT w con Stat Hospital Course (1) Cellulitis: (2) Ulcer of left knee: -Zosyn and Vanco inpatient - will send home with Keflex and Bactrim for 8 days for total of 10 days treatment -Consulted wound care nurse - patient will follow with wound center and will have home health to perform dressing changes -BC no growth, MRSA swab negative -Pain control with Tylenol -Patient is on chronic prednisone for respiratory issues. -X-ray reviewed, soft tissue swelling without acute fracture or foreign body. (3) Benign essential HTN: - continue losartan 100 mg daily, metoprolol succinate 25 mg daily (4) Asthma: -Moderate persistent, continue levalbuterol nebulizers, Advair, Spiriva inh -Added mucinex, tessalon pearls but pt reports he is about his baseline. Not requiring supplemental O2. Patient ambulated the halls without difficulty a number of times today and feels ready for discharge. Will have him follow up with his steward/stewardess wine next week. 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 (5) JOANN (obstructive sleep apnea): -Does not wear supplemental O2 or CPAP. (6) Allergic bronchopulmonary aspergillosis: -Patient reports infection occurred a few years ago, he has been following with an steward/stewardess wine (7) Long-term current use of steroids: -Patient has been on prednisone 40 mg to 5 mg over the past 5-6 years, he has been unable to wean off this completely. Will discharge with his current home dose of 40 mg with instructions to follow up with his steward/stewardess wine next week. (8) Chronic sinusitis: - Patient uses [id number] medications for symptom relief, currently stable (9) DVT prophylaxis: SCDs Total Time Total Time Spent Total Time Spent (In Minutes): greater than 30 minutes Discharge Plan Discharge Items Patient Disposition: Home - Home Health Services Reason For Visit: KNEE WOUND Discharge Diagnosis: Cellulitis Discharge Goals: Improve disease control Activity: Resume your previous activity Activity Comment: gradually as tolerated Non-emergency contact: Primary Care Provider Call non-emergency contact if: you have any medication questions, your symptoms worsen, your pain is not controlled, your pain is worsening, you have a fever, your wound has increased redness, your wound has increased drainage and your wound pain has increased Follow-up/Referrals: [facility] [Outside] - 08/23/18 1:30 pm (Please, follow up at [facility] on SundayAugust 23 at 1:30 pm. *This clinic is located at [address] in [place]. If you need to change this appointment, call the office at [phone].) Hedy Arredondo CRNP [Nurse Practitioner] - 08/21/18 8:40 am (Please, follow up at [facility] Pulmonology Office with Hedy DOWLING on SundayAugust 21 at 9:00 am (arrive 8:40 am). *This office is located in [address] of [facility] - big building next to this hospital. If you need to change this appointment, call the office at [phone].) Martinez Bardales [Primary Care Provider] - (Please, follow up with Dr. Martinez Bardales. *The office phone number is [phone].) Diet: Heart Healthy Addtl Provider Instructions: Please complete your entire course of antibiotics. Cefalexin should be taken 4 times per day and sulfamethoxazole-trimethoprim should be taken twice per day, both antibiotics for 8 days. Please see your primary care provider and steward/stewardess wine within a week. If your cellulitis gets worse or you run a fever, please tell your primary care provider right away. Home health will see you tomorrow. They should clean your wounds with saline and covered with Aquacel Ag and optifoam. Please follow up with the wound clinic. Their number is [phone] Prescriptions: New sulfamethoxazole-trimethoprim [Bactrim DS] 800-160 mg tablet 1 tab PO Q12H Qty: 16 RF: 0 cephalexin [Keflex] 500 mg capsule 500 mg PO Q6H 8 Days Qty: 32 RF: 0 Continue albuterol sulfate 2.5 mg /3 mL (0.083 %) solution for nebulization 1 vial Continuous Nebulization Q4 PRN (Reason: Shortness Of Breath Or Wheezing) RF: 0 fluticasone-salmeterol [Advair Diskus] 500-50 mcg/dose blister with device 1 puff Inhalation BID RF: 0 albuterol sulfate [Ventolin HFA] 90 mcg/actuation HFA aerosol inhaler 2 puff Inhalation Q4 PRN (Reason: Shortness Of Breath Or Wheezing) RF: 0 losartan 100 mg tablet 100 mg PO DAILY RF: 0 meloxicam 7.5 mg tablet 7.5 mg PO DAILY RF: 0 mometasone 50 mcg/actuation spray,non-aerosol 2 spray Intranasal DAILY RF: 0 montelukast 10 mg tablet 10 mg PO DAILY RF: 0 metoprolol succinate 25 mg tablet extended release 24 hr 25 mg PO DAILY RF: 0 metaxalone 800 mg tablet 800 mg PO TID RF: 0 tiotropium bromide [Spiriva with HandiHaler] 18 mcg capsule, w/inhalation device 18 mcg Inhalation DAILY RF: 0 levalbuterol tartrate [Xopenex HFA] 45 mcg/actuation HFA aerosol inhaler 2 puff Inhalation QID PRN (Reason: shortness breath) RF: 0 prednisone 40 mg tablet 40 mg PO DAILY RF: 0 Stand-Alone Forms: [facility] [place], Work/School Release (Inpt) Discharge Orders: Discharge Order (Routine); Ordered 08/15/18 Ordered By: Antonella Zacarias Admission Data Admit Date/Time: 08/13/18 07:58 Attending Provider: Bernard Jordan Admit Provider: Bernard Jordan Primary Care Provider: Martinez Bardales Other Providers: Skuhi Schwarz ; Wagner Staton Service: Medical
== END 2018-08-15 14:30 | disposition home health service (06) ==
LOC: ED 04:38 → 4W 04:38

== ENCOUNTER 2023-09-11 21:09 | Inpatient (IN) ==
[2023-09-11 22:37] LABS: Hematocrit (blood only) 39.3 % (42.0-52.0); Mean Corpuscular Hemoglobin 31.3 pg (25.0-34.0); Mean Corpuscular Hgb Conc 33.1 g/dL (32.0-36.0); Mean Corpuscular Volume 94.7 fL (80.0-100.0); Mean Platelet Volume 9.5 fL (9.4-12.4); Platelet Count 357 K/uL (130-400); RDW Coefficient of Variation 14.2 % (11.5-14.5); RDW Standard Deviation 48.9 fL (36.4-46.3); Red Blood Count 4.15 M/uL (4.70-6.10); White Blood Count 16.46 K/ul (4.8-10.8)
[2023-09-11 22:54] LABS: Alanine Aminotransferase 64 U/L (7-52); Albumin Globulin Ratio 0.7 (0.9-2); Albumin Level 3.4 gm/dl (3.4-5.0); Alkaline Phosphatase 93 U/L (34-104); Anion Gap 13 (3-11); Aspartate Aminotransferase 56 U/L (13-39); BUN Creatinine Ratio 28.3 (10-20); Basophils # (auto) 0.02 K/uL (0.00-0.20); Basophils % (auto) 0.1 %; Bilirubin,Total 0.6 mg/dl (0.2-1.0); Blood Urea Nitrogen 28 mg/dl (6-23); Calcium 9.6 mg/dl (8.6-10.3); Carbon Dioxide 21 mmol/L (21-32); Chloride 105 mmol/L (98-107); Eosinophils # (auto) 0.01 K/uL (0.00-0.50); Eosinophils % (auto) 0.1 %; Est GFR (African American) 89.7 ml/min; Est GFR (Non-African American) 77.4 ml/min; Globulin 4.7 gm/dl (2.5-4.0); Glucose 80 mg/dl (70-99(Fasting)); Immature Granulocytes # (auto) 0.09 K/uL (0.01-0.20); Immature Granulocytes % (auto) 0.5 %; Lymphocytes # (auto) 0.23 K/uL (1.20-3.40); Lymphocytes % (auto) 1.4 %; Monocytes # (auto) 0.17 K/uL (0.11-0.59); Neutrophils # (auto) 15.94 K/uL (1.40-6.50); Neutrophils % (auto) 96.9 %; Potassium 3.9 mmol/L (3.5-5.1); Sodium 139 mmol/L (136-145); Total Protein 8.1 gm/dl (6.0-8.3)
[2023-09-11 23:05] LABS: Partial Thromboplastin Ratio 0.9; Partial Thromboplastin Time 25 Seconds (21-31); Prothrombin Time 10.9 Seconds (9.0-12.0)
[2023-09-11 23:24] LABS: Appearance Urine Clear (Clear); Bacteria Urine Automated Negative (Negative); Bilirubin Urine Negative (Negative); Blood Urine Negative (Negative); Color Urine Yellow; Epithelial Cell Urine Auto 20-30 /lpf (0-5); Glucose Urine UA Negative (Negative); Ketones Urine Negative (Negative); Leukocyte Esterase Urine Negative (Negative); Nitrite Urine Negative (Negative); Protein Urine 1+ (Negative); RBC Urine Automated 0-4 /hpf (0-4); Specific Gravity Urine 1.029 (1.000-1.030); Urobilinogen Urine Negative (Negative); pH Urine 5.5 (4.5-7.5)
[2023-09-11 23:41] LABS: Creatine Kinase 30 U/L (30-223)
--- NOTE | 2023-09-11 23:51 | Emergency Department Note ---
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 Patient states he chronically has leg weakness but this feels different. He saw the family doctor and gave him a splint thinking this might be carpal tunnel. Patient denies vomiting, diarrhea, cough, congestion, flulike illness. Home Medications Medication Instructions Recorded Confirmed Type albuterol sulfate 2.5 mg/3 mL 1 vial continuous nebulization Q4 08/13/18 09/15/21 History (0.083 %) solution for nebulization PRN Shortness Of Breath Or Wheezing albuterol sulfate 90 mcg/actuation 2 puff inhalation Q4 PRN Shortness 08/13/18 09/15/21 History aerosol inhaler Of Breath Or Wheezing fluticasone 500 mcg-salmeterol 50 1 puff inhalation BID 08/13/18 09/15/21 History mcg/dose blistr powdr for inhalation meloxicam 7.5 mg tablet 7.5 mg PO QAM 08/13/18 09/15/21 History metaxalone 800 mg tablet 800 mg PO TID PRN Muscle Spasm 08/13/18 09/15/21 History metoprolol succinate 25 mg 25 mg PO QAM 08/13/18 09/15/21 History tablet,extended release 24 hr mometasone 50 mcg/actuation nasal 2 spray intranasal DAILY 08/13/18 09/15/21 History spray montelukast 10 mg tablet 10 mg PO QAM 08/13/18 09/15/21 History azelastine 137 mcg (0.1 %) nasal 1 spray intranasal DAILY 05/10/20 09/15/21 History spray aerosol prednisone 10 mg tablet 10 - 30 mg PO QAM 05/10/20 09/15/21 History pseudoephedrine-guaifenesin ER 60 1 tab PO BID PRN Congestion 05/10/20 09/15/21 History mg-600 mg tablet,extend release 12hr (Mucinex D) aspirin-caffeine 400 mg-32 mg 1 tab PO UD 09/15/21 09/15/21 History tablet (Anacin) cyclobenzaprine 5 mg tablet 5 mg PO BID PRN Muscle Spasm 09/15/21 09/15/21 History duloxetine 60 mg capsule,delayed 60 mg PO DAILY 09/15/21 09/15/21 History release gabapentin 100 mg capsule 300 mg PO HS 09/15/21 09/15/21 History hydrochlorothiazide 25 mg tablet 25 mg PO QAM 09/15/21 09/15/21 History losartan 50 mg tablet 50 mg PO QAM 09/15/21 09/15/21 History mepolizumab 100 mg subcutaneous 0 mg subcut .Q 4 WEEKS 09/15/21 09/15/21 History solution (Nucala) multivitamin 1 tab PO DAILY 09/15/21 09/15/21 History tiotropium bromide 2.5 2 puff inhalation DAILY 09/15/21 09/15/21 History mcg/actuation mist for inhalation (Spiriva Respimat) naproxen 500 mg tablet 500 mg PO BID PRN pain #60 tabs 02/23/23 Rx Allergies Allergy/AdvReac Type Severity Reaction Status Date / Time amoxicillin AdvReac Intermediate made me Verified 09/15/21 16:30 feel weird Past Med/Surg History Medical History Ambulates with cane Chronic sinusitis Long-term current use of steroids Allergic bronchopulmonary aspergillosis JOANN (obstructive sleep apnea) no device Asthma inhaler daily and prn Benign essential HTN HTN (hypertension) Hernia Surgical History History of colonoscopy History of tooth extraction History of tonsillectomy Status post uvulopalatopharyngoplasty History of ear surgery mastoid sx S/P hernia surgery Family History Grandfather (Paternal) Family history of diabetes mellitus Grandfather (Maternal) Family history of diabetes mellitus Family history of esophageal cancer Other Asthma No family history of adverse response to anesthesia Social History Smoking Status: Former smoker Second Hand Exposure: No; Do You Dip or Chew Tobacco: No (quit 10 years ago); Hx Alcohol Use: No Hx Substance Use: No Preferred Language: [place] Communication Ability: Effective [place] Hold Required: No Beliefs That Will Affect Care: None Current Living Situation: Spouse current occupational status: employed Feels Safe at Home: Yes Assistive Devices: Cane and Nebulizer Review of Systems A total of 10 systems reviewed and were otherwise negative Physical Exam Vital Signs Vital Signs - 24 hr 09/11/23 21:16 09/12/23 00:42 09/12/23 01:01 Temperature 36.7 C Temperature Source Temporal Artery Scan Pulse Rate 137 H 130 H Pulse Rate [Apical] 130 H Respiratory Rate 18 20 Respiratory Effort / Characteristics Non-Labored Spontaneous Respiratory Depth Normal Blood Pressure 138/72 Blood Pressure [Right Arm] 126/88 Blood Pressure Mean 94 Blood Pressure Mean [Right Arm] 100 Pulse Oximetry 92 95 Oxygen Delivery Method Room Air Room Air Sepsis Recent Fever Within 48 Hours No Sepsis New/Unexplained Change in Mental Status No Sepsis Action Taken by Nursing No Action Required 09/12/23 01:02 09/12/23 02:00 09/12/23 02:00 Temperature Temperature Source Pulse Rate 131 H Pulse Rate [Apical] Respiratory Rate 22 Respiratory Effort / Characteristics Respiratory Depth Blood Pressure 111/75 Blood Pressure [Right Arm] Blood Pressure Mean 88 Blood Pressure Mean [Right Arm] Pulse Oximetry 92 Oxygen Delivery Method Room Air Room Air Sepsis Recent Fever Within 48 Hours Sepsis New/Unexplained Change in Mental Status Sepsis Action Taken by Nursing 09/12/23 02:58 09/12/23 03:18 Temperature 36.9 C Temperature Source Oral Pulse Rate Pulse Rate [Apical] 137 H Respiratory Rate 22 Respiratory Effort / Characteristics Respiratory Depth Blood Pressure Blood Pressure [Right Arm] 125/88 Blood Pressure Mean Blood Pressure Mean [Right Arm] 100 Pulse Oximetry 94 Oxygen Delivery Method Room Air Sepsis Recent Fever Within 48 Hours Sepsis New/Unexplained Change in Mental Status Sepsis Action Taken by Nursing VITALS: Vitals are noted on the nurse's note and reviewed by myself. Vital signs mildly tachycardic. GENERAL: Pleasant gentleman, in no acute distress, nondiaphoretic, well- developed well-nourished. SKIN: Peripheral edema, the rest of the skin was without rashes, erythema, edema, or bruising. There is no tenting of the skin. Capillary reflex less than 2 seconds. HEAD: Normocephalic atraumatic. EARS: External auditory canals clear EYES: Pupils equal round and reactive to light and accommodation. Conjunctivae without injection, sclerae without icterus. Extraocular movements intact. NOSE: Patent, no discharge. MOUTH: Mucous membranes moist. Pharynx without erythema or exudate. Uvula midline. Airway patent. Tongue does not deviate. NECK: Supple without nuchal rigidity. No lymphadenopathy. No thyromegaly. Cervical spine is nontender. No JVD. HEART: Mildly tachycardic rate and rhythm LUNGS: Clear to auscultation bilaterally without wheezes, rales or rhonchi. No retractions or accessory muscle use. ABDOMEN: Positive bowel sounds x 4. Normal tympanic percussion. Soft, mid abdominal tenderness, without masses or organomegaly. Goode sign negative. No guarding or rebound tenderness. No CVA tenderness MUSCULOSKELETAL: No muscle atrophy, erythema, noted. +1 pitting edema to the hands and feet bilaterally NEURO: Patient was alert and oriented to person place and time. Normal sensation to light and sharp touch. No focal neurological deficits. Course Administered Medications Cefepime HCl 2,000 mg/ Syringe 20 mls @ 5 mls/min IV Q8H [facility]; Protocol Stop: 09/19/23 03:59 Last Admin: 09/12/23 04:43 Dose: 5 mls/min Documented By: AN Daptomycin 350 mg/ Syringe 7 mls @ 3.5 mls/min IV Q24H RASHIDA; Protocol Stop: 09/19/23 03:59 Last Admin: 09/12/23 04:43 Dose: 3.5 mls/min Documented By: AN Magnesium Sulfate/Dextrose (Magnesium Sulfate / D5w) 1 gm in 100 mls @ 50 mls/hr IV Q2H [facility] Stop: 09/12/23 08:14 Last Admin: 09/12/23 04:43 Dose: 50 mls/hr Documented By: AN Lorazepam (Lorazepam 0.5 Mg Tab) 0.5 mg PO TID PRN PRN Reason: Anxiety Stop: 10/12/23 03:37 Last Admin: 09/12/23 05:36 Dose: 0.5 mg Documented By: GLORIA Discontinued Medications Sodium Chloride (Nss) 1,000 mls @ 999 mls/hr IV .Q1H1M ONE Stop: 09/11/23 23:52 Last Infusion: 09/12/23 01:29 Dose: Infused Documented By: Admin: 09/12/23 00:29 Dose: 999 mls/hr Documented By: ESSIE Potassium Chloride/Sodium Chloride (Normal Saline W/20 Meq Kcl) 20 meq in 1,000 mls @ 500 mls/hr IV .Q2H ONE; Protocol Stop: 09/12/23 04:31 Last Admin: 09/12/23 03:21 Dose: 200 mls/hr Documented By: BESSY Ioversol (Optiray 320 125ml) 125 ml IV ONCE ONE Stop: 09/12/23 00:00 Last Admin: 09/11/23 23:59 Dose: 115 ml Documented By: ABDELRAHMAN Morphine Sulfate (Morphine Sulfate 4 Mg/Ml 1 Ml Carp\Vial) 4 mg IV NOW STA Stop: 09/12/23 02:36 Last Admin: 09/12/23 03:15 Dose: 4 mg Documented By: BESSY Ondansetron HCl (Ondansetron Inj 2 Mg/Ml 2 Ml Vial) 4 mg IV NOW STA Stop: 09/12/23 02:36 Last Admin: 09/12/23 03:15 Dose: 4 mg Documented By: BESSY Medical Decision Making Medical Records Attestation: I reviewed the patient's medical records. Home Medications Current Medication List: was personally reviewed by me Laboratory Data Attestation: I reviewed the patient's lab results. 09/12/23 03:52 09/12/23 03:52 Lab Results 09/11/23 09/11/23 09/12/23 Range/Units 22:15 22:52 00:55 WBC 16.46 H (4.8-10.8) K/ul RBC 4.15 L (4.70-6.10) M/uL Hgb 13.0 L (14.0-18.0) g/dl Hct 39.3 L (42.0-52.0) % MCV 94.7 (80.0-100.0) fL MCH 31.3 (25.0-34.0) pg MCHC 33.1 (32.0-36.0) g/dL RDW Std Deviation 48.9 H (36.4-46.3) fL RDW Coeff of Karishma 14.2 (11.5-14.5) % Plt Count 357 (130-400) K/uL MPV 9.5 (9.4-12.4) fL Immature Gran % (Auto) 0.5 % Neut % (Auto) 96.9 % Lymph % (Auto) 1.4 % Merrick % (Auto) 1.0 % Eos % (Auto) 0.1 % Baso % (Auto) 0.1 % Neut # (Auto) 15.94 H (1.40-6.50) K/uL Lymph # (Auto) 0.23 L (1.20-3.40) K/uL Merrick # (Auto) 0.17 (0.11-0.59) K/uL Eos # (Auto) 0.01 (0.00-0.50) K/uL Baso # (Auto) 0.02 (0.00-0.20) K/uL Immature Gran # (Auto) 0.09 (0.01-0.20) K/uL PT 10.9 (9.0-12.0) Seconds INR 1.0 (0.9-1.1) APTT 25 (21-31) Seconds PTT Ratio 0.9 Sodium 139 (136-145) mmol/L Potassium 3.9 (3.5-5.1) mmol/L Chloride 105 (98-107) mmol/L Carbon Dioxide 21 (21-32) mmol/L Anion Gap 13 H (3-11) BUN 28 H (6-23) mg/dl Creatinine 0.99 (0.6-1.4) mg/dl Est Cr Clr Drug Dosing Not Reportable Est GFR ( Amer) 89.7 ml/min Est GFR (Non-Af Amer) 77.4 ml/min BUN/Creatinine Ratio 28.3 H (10-20) Glucose 80 (70-99(Fasting)) mg/dl Calcium 9.6 (8.6-10.3) mg/dl Magnesium 1.7 (1.7-2.4) mg/dl Total Bilirubin 0.6 (0.2-1.0) mg/dl AST 56 H (13-39) U/L ALT 64 H (7-52) U/L Alkaline Phosphatase 93 (34-104) U/L Total Creatine Kinase 30 (30-223) U/L Troponin I High Sens 13.0 (0-20) pg/ml Total Protein 8.1 (6.0-8.3) gm/dl Albumin 3.4 (3.4-5.0) gm/dl Globulin 4.7 H (2.5-4.0) gm/dl Albumin/Globulin Ratio 0.7 L (0.9-2) Procalcitonin 0.52 H (0-0.5) ng/ml TSH 1.877 (0.300-4.500) uIu/ml Urine Color Yellow Urine Appearance Clear (Clear) Urine pH 5.5 (4.5-7.5) Ur Specific [place] 1.029 (1.000-1.030) Urine Protein 1+ H (Negative) Urine Glucose (UA) Negative (Negative) Urine Ketones Negative (Negative) Urine Blood Negative (Negative) Urine Nitrite Negative (Negative) Urine Bilirubin Negative (Negative) Urine Urobilinogen Negative (Negative) Ur Leukocyte Esterase Negative (Negative) Urine WBC (Auto) 1-5 (0-5) /hpf Urine RBC (Auto) 0-4 (0-4) /hpf U Hyaline Cast (Auto) 5-10 H (0-5) /lpf U Epithel Cells (Auto) 20-30 H (0-5) /lpf Urine Bacteria (Auto) Negative (Negative) Adenovirus (PCR) Not Detected (NotDetected) B. pertussis DNA (PCR) Not Detected (NotDetected) B.parapertussis DNA PCR Not Detected (NotDetected) C. pneumoniae DNA (PCR) Not Detected (NotDetected) Coronavirus OC43 (PCR) Not Detected (NotDetected) Coronavirus HKU1 (PCR) Not Detected (NotDetected) Coronavirus 229E (PCR) Not Detected (NotDetected) SARS-CoV-2 (PCR) Not Detected (NotDetected) Coronavirus NL63 (PCR) Not Detected (NotDetected) Human Metapneumovir PCR Not Detected (NotDetected) Influenza Type A (PCR) Not Detected (NotDetected) Influenza Type B (PCR) Not Detected (NotDetected) M. pneumoniae (PCR) Not Detected (NotDetected) Parainfluenza 1 (PCR) Not Detected (NotDetected) Parainfluenza 2 (PCR) Not Detected (NotDetected) Parainfluenza 3 (PCR) Not Detected (NotDetected) Parainfluenza 4 (PCR) Not Detected (NotDetected) RSV (PCR) Not Detected (NotDetected) Entero/Rhino (PCR) Not Detected (NotDetected) Imaging Data Attestation: I personally reviewed and interpreted this imaging study as follows: Radiologist's Impression: Abdomen/Pelvis CT 09/11/23 22:49 Exam(s): CT ABDOMEN + PELVIS With Contrast IV Amt: 115 ML OPTIRAY 320 EXAM: CT Abdomen and Pelvis With Intravenous Contrast CLINICAL HISTORY: Reason for exam: Abdominal and back pain, peripheral edema. TECHNIQUE: Axial computed tomography images of the abdomen and pelvis with intravenous contrast. CTDI is 27 mGy and DLP is 1446.47 mGy-cm. Automated exposure control was utilized for the study. A dose lowering technique was utilized adhering to the principles of ALARA. CONTRAST: Patient received 115 ML OPTIRAY 320 of IV contrast COMPARISON: No relevant prior studies available. FINDINGS: Lung bases: Unremarkable. No mass. No consolidation. ABDOMEN: Liver: Unremarkable. No mass. Gallbladder and bile ducts: Unremarkable. No calcified stones. No ductal dilation. Pancreas: Unremarkable. No mass. No ductal dilation. Spleen: Unremarkable. No splenomegaly. Adrenals: Unremarkable. No mass. Kidneys and ureters: Unremarkable. No solid mass. No hydronephrosis. Stomach and bowel: Unremarkable. No obstruction. No mucosal thickening. PELVIS: Appendix: No findings to suggest acute appendicitis. Bladder: Mild bladder distention. Reproductive: Unremarkable as visualized. ABDOMEN and PELVIS: Intraperitoneal space: Unremarkable. No free air. No significant fluid collection. Bones/joints: No acute fracture. No dislocation. Soft tissues: Unremarkable. Vasculature: Unremarkable. No abdominal aortic aneurysm. Lymph nodes: Unremarkable. No enlarged lymph nodes. IMPRESSION: No acute findings in the abdomen or pelvis. Electronically signed by: Shaq Parada MD 09/12/23 02:01 AM Chest CTA 09/11/23 22:49 Exam(s): CTA CHEST IV Amt: 115 ML OPTIRAY 320 EXAM: CT Angiography Chest With Intravenous Contrast CLINICAL HISTORY: Reason for exam: PE/peripheral edema, question obstruction. TECHNIQUE: Axial computed tomographic angiography images of the chest with intravenous contrast. CTDI is 28 mGy and DLP is 913.31 mGy-cm. Automated exposure control was utilized for the study. A dose lowering technique was utilized adhering to the principles of ALARA. MIP reconstructed images were created and reviewed. COMPARISON: No relevant prior studies available. FINDINGS: Pulmonary arteries: Unremarkable. No pulmonary embolism. Aorta: No acute findings. No thoracic aortic aneurysm. Lungs: Unremarkable. No mass. No consolidation. Pleural space: Unremarkable. No significant effusion. No pneumothorax. Heart: Unremarkable. No cardiomegaly. No significant pericardial effusion. No evidence of RV dysfunction. Bones/joints: No acute fracture. No dislocation. Soft tissues: Unremarkable. Lymph nodes: Unremarkable. No enlarged lymph nodes. IMPRESSION: Normal chest CTA. No pulmonary embolism. Electronically signed by: Shaq Parada MD 09/12/23 01:[address] 09/11/23 23:52 Exam(s): CT HEAD Without Contrast EXAM: CT Head Without Intravenous Contrast CLINICAL HISTORY: Reason for exam: ams. TECHNIQUE: Axial computed tomography images of the head/brain without intravenous contrast. CTDI is 38.24 mGy and DLP is 625.8 mGy-cm. Automated exposure control was utilized for the study. A dose lowering technique was utilized adhering to the principles of ALARA. COMPARISON: No relevant prior studies available. FINDINGS: Limitations: Exam limited secondary to patient motion artifact. Brain: Unremarkable. No hemorrhage. No significant white matter disease. No edema. Ventricles: Unremarkable. No ventriculomegaly. Bones/joints: Unremarkable. No acute fracture. Soft tissues: Unremarkable. Sinuses: Bilateral left greater right maxillary sinus inflammatory change. Mastoid air cells: Unremarkable as visualized. No mastoid effusion. IMPRESSION: Limited exam Grossly no acute findings in the head/brain. Electronically signed by: Shaq Parada MD 09/12/23 04:31 AM [facility] Narrative Prior records/ancillary studies reviewed and summarized above. Nursing notes reviewed. Additional history obtained from family. The patient's history was concerning for peripheral edema, dyspnea, abdominal pain and back pain and not feeling right who has CIDP and follows with neurology. Differential diagnosis: Etiologies such as nephritic syndrome, nephrotic syndrome, thyroid disorder, obstruction, metabolic, infection, hypo/hyperglycemia, electrolyte abnormalities, cardiac sources, intracerebral event, toxicologic, neurologic, as well as others were entertained. Physical examination: As above. ER treatment provided: IV Lock An order was placed for continuous cardiac monitoring. The monitor shows a rate of 60-1 50 with a sinus rhythm per my interpretation. IV fluids On reassessment the patient felt better. Diagnostics interpretation by me: ECG: Ordered for tachycardia EKG: Normal sinus, minimal ST depression in the anterior lateral leads, rate of 145. Impression sinus tachycardia with mild ST depression most likely rate dependent independently interpreted by myself The labs Independently Interpreted by myself revealed mild leukocytosis and patient has been on steroids Mild LFT elevation Euthyroid Imaging studies: Chest x-ray with mild fluid possibly in the fissure in the right lung per my independent or potation. CTs as above Consultation: A consultation was placed with the hospitalist. The case was discussed and diagnostics were reviewed. The patient was evaluated in the ER for further treatment. Exam and history seem consistent with peripheral edema and tachycardia with chest abdominal pain and back pain with unclear etiology. Medicine was consulted and the case discussed. Patient be admitted to the medical service for further evaluation and workup. Patient is agreeable. CTs were negative for obstruction. Urine not infected. No pneumonia. By the evaluation outlined above emergent etiologies such as electrolyte abnormalities, intracerebral event, toxologic, neurologic, abnormalities blood glucose, metabolic, as well as others were deemed relatively unlikely. The pt informed about the findings as listed above. All questions were answered and pleased with the treatment. The chart was completed utilizing [employer] Speech voice recognition software. Grammatical errors, random word insertions, pronoun errors, and incomplete sentences are an occassional consequence of this system due to software limitations, ambient noise, and hardware issues. Any formal questions or concerns about the content, text, or information contained within the body of this dictation should be directly addressed to the physician congressional assistant for clarification. Impression & Plan Peripheral edema, Tachycardia, Abdominal pain, Back pain, Weakness Discharge Plan Visit Data Chief Complaint: Back Injury/Pain Stated Complaint: BACK PAIN, HAND PAIN FROM WRIST DOWN, CARPULTUNNEL ED Provider: [facility] Midlevel Provider: Cristina Cullen Discharge Problem: Peripheral edema, Tachycardia, Abdominal pain, Back pain, Weakness Patient Disposition: Admitted As Inpatient Condition: Fair Discharge Instructions Interventions: ED Discharge Assessment Last Done: 09/12/23 04:14
[2023-09-11 23:56] LABS: Thyroid Stimulating Hormone 1.877 uIu/ml (0.300-4.500)
[2023-09-11] MEDS: OPTIRAY 320 125ml IV ONE (23:59)
[2023-09-12] MEDS: SODIUM CHLORIDE 0.9% 1,000 ML IV ONE (00:29)
--- NOTE | 2023-09-12 01:16 | CT Scan Report ---
Exam(s): CTA CHEST IV Amt: 115 ML OPTIRAY 320 EXAM: CT Angiography Chest With Intravenous Contrast CLINICAL HISTORY: Reason for exam: PE/peripheral edema, question obstruction. TECHNIQUE: Axial computed tomographic angiography images of the chest with intravenous contrast. CTDI is 28 mGy and DLP is 913.31 mGy-cm. Automated exposure control was utilized for the study. A dose lowering technique was utilized adhering to the principles of ALARA. MIP reconstructed images were created and reviewed. COMPARISON: No relevant prior studies available. FINDINGS: Pulmonary arteries: Unremarkable. No pulmonary embolism. Aorta: No acute findings. No thoracic aortic aneurysm. Lungs: Unremarkable. No mass. No consolidation. Pleural space: Unremarkable. No significant effusion. No pneumothorax. Heart: Unremarkable. No cardiomegaly. No significant pericardial effusion. No evidence of RV dysfunction. Bones/joints: No acute fracture. No dislocation. Soft tissues: Unremarkable. Lymph nodes: Unremarkable. No enlarged lymph nodes. IMPRESSION: Normal chest CTA. No pulmonary embolism. Electronically signed by: Shaq Parada MD 09/12/23 01:15 AM
--- NOTE | 2023-09-12 02:02 | CT Scan Report ---
Exam(s): CT ABDOMEN + PELVIS With Contrast IV Amt: 115 ML OPTIRAY 320 EXAM: CT Abdomen and Pelvis With Intravenous Contrast CLINICAL HISTORY: Reason for exam: Abdominal and back pain, peripheral edema. TECHNIQUE: Axial computed tomography images of the abdomen and pelvis with intravenous contrast. CTDI is 27 mGy and DLP is 1446.47 mGy-cm. Automated exposure control was utilized for the study. A dose lowering technique was utilized adhering to the principles of ALARA. CONTRAST: Patient received 115 ML OPTIRAY 320 of IV contrast COMPARISON: No relevant prior studies available. FINDINGS: Lung bases: Unremarkable. No mass. No consolidation. ABDOMEN: Liver: Unremarkable. No mass. Gallbladder and bile ducts: Unremarkable. No calcified stones. No ductal dilation. Pancreas: Unremarkable. No mass. No ductal dilation. Spleen: Unremarkable. No splenomegaly. Adrenals: Unremarkable. No mass. Kidneys and ureters: Unremarkable. No solid mass. No hydronephrosis. Stomach and bowel: Unremarkable. No obstruction. No mucosal thickening. PELVIS: Appendix: No findings to suggest acute appendicitis. Bladder: Mild bladder distention. Reproductive: Unremarkable as visualized. ABDOMEN and PELVIS: Intraperitoneal space: Unremarkable. No free air. No significant fluid collection. Bones/joints: No acute fracture. No dislocation. Soft tissues: Unremarkable. Vasculature: Unremarkable. No abdominal aortic aneurysm. Lymph nodes: Unremarkable. No enlarged lymph nodes. IMPRESSION: No acute findings in the abdomen or pelvis. Electronically signed by: Shaq Parada MD 09/12/23 02:01 AM
[2023-09-12 02:07] LABS: Adenovirus PCR Not Detected (NotDetected); Bordetella parapertussis PCR Not Detected (NotDetected); Bordetella pertussis PCR Not Detected (NotDetected); Chlamydia pneumoniae PCR Not Detected (NotDetected); Coronavirus 229E PCR Not Detected (NotDetected); Coronavirus CoV-2 (COVID19)PCR Not Detected (NotDetected); Coronavirus HKU1 PCR Not Detected (NotDetected); Coronavirus NL63 PCR Not Detected (NotDetected); Coronavirus OC43PCR Not Detected (NotDetected); Human Metapneumovirus PCR Not Detected (NotDetected); Influenza A PCR Not Detected (NotDetected); Influenza B PCR Not Detected (NotDetected); Mycoplasma pneumoniae PCR Not Detected (NotDetected); Parainfluenza Virus 1 PCR Not Detected (NotDetected); Parainfluenza Virus 2 PCR Not Detected (NotDetected); Parainfluenza Virus 3 PCR Not Detected (NotDetected); Parainfluenza Virus 4 PCR Not Detected (NotDetected); Respiratory Syncytial VirusPCR Not Detected (NotDetected); Rhinovirus/Enterovirus PCR Not Detected (NotDetected)
--- NOTE | 2023-09-12 02:42 | History & Physical Report ---
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 Possible sources include hand/wrist joints, back, endocarditis mild as per records hypertension, BP on the lower side JOANN status post surgery (CPAP intolerance) New onset anemia, no overt bleed for now, FOBT done at the ER was negative past tobacco abuse PCU given tachycardia CS, Daptomycin, Cefepime for now Follow lactic acid response to IVF CT both hands and lumbar spine Re: Swelling and back pain May need MRI if CT uninformative Hold BP meds for now given borderline BP May need stress dose steroid given potential for adrenal insufficiency Anemia workup Further management pending workup results DVT prophylaxis. Lovenox subcu Full code Patient requesting updates providers. Ms. Carole Gao, contact numbers [phone]. Text document was generated using [employer] voice recognition software. It may contain grammatical or spelling errors. Kindly contact undersigned for clarification of any documentation item in question. History of Present Illness Chief Complaint: Worsening bilateral hand swelling, back pain, bilateral leg weakness Primary Care Provider: Ruel Fajardo MD History obtained from patient, family, and records. 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 Last confinement July 2018 for left lower extremity cellulitis. 3 weeks ago, patient noted right wrist pain while loading a sack of pallets into a stove. Progressive right wrist/hand swelling. 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 It is unclear if there is superimposed acute injury, though soft tissue swelling is present. If clinically warranted, correlation with MRI could be considered. No improvement with ice compress and topical pain recommendations by PCP's office. Patient refused higher dose of steroid recommended by PCP due to past history of bad reaction as per . Subsequent swelling of left hand and wrist noted a week later without recollection of antecedent trauma. Last week, patient noted dysuria symptoms. Outpatient urine CS grew Staph aureus. Patient completed Bactrim Rx. Worsening bilateral wrist swelling associated with achy back pain the last few days. No leg radiation although legs feel weaker than usual as per patient. Denies urinary incontinence. Shortness of breath without chest pain or cough. Denies headache, abdominal pain. Dark stools noted at home. Denies hematuria. Patient brought to ER by due to worsening symptoms. 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 Allergies Allergy/AdvReac Type Severity Reaction Status Date / Time amoxicillin AdvReac Intermediate made me Verified 09/15/21 16:30 feel weird Home Medications Medication Instructions Recorded Confirmed Type albuterol sulfate 2.5 mg/3 mL 1 vial continuous nebulization Q4 08/13/18 09/15/21 History (0.083 %) solution for nebulization PRN Shortness Of Breath Or Wheezing albuterol sulfate 90 mcg/actuation 2 puff inhalation Q4 PRN Shortness 08/13/18 09/15/21 History aerosol inhaler Of Breath Or Wheezing fluticasone 500 mcg-salmeterol 50 1 puff inhalation BID 08/13/18 09/15/21 History mcg/dose blistr powdr for inhalation meloxicam 7.5 mg tablet 7.5 mg PO QAM 08/13/18 09/15/21 History metaxalone 800 mg tablet 800 mg PO TID PRN Muscle Spasm 08/13/18 09/15/21 History metoprolol succinate 25 mg 25 mg PO QAM 08/13/18 09/15/21 History tablet,extended release 24 hr mometasone 50 mcg/actuation nasal 2 spray intranasal DAILY 08/13/18 09/15/21 History spray montelukast 10 mg tablet 10 mg PO QAM 08/13/18 09/15/21 History azelastine 137 mcg (0.1 %) nasal 1 spray intranasal DAILY 05/10/20 09/15/21 History spray aerosol prednisone 10 mg tablet 10 - 30 mg PO QAM 05/10/20 09/15/21 History pseudoephedrine-guaifenesin ER 60 1 tab PO BID PRN Congestion 05/10/20 09/15/21 History mg-600 mg tablet,extend release 12hr (Mucinex D) aspirin-caffeine 400 mg-32 mg 1 tab PO UD 09/15/21 09/15/21 History tablet (Anacin) cyclobenzaprine 5 mg tablet 5 mg PO BID PRN Muscle Spasm 09/15/21 09/15/21 History duloxetine 60 mg capsule,delayed 60 mg PO DAILY 09/15/21 09/15/21 History release gabapentin 100 mg capsule 300 mg PO HS 09/15/21 09/15/21 History hydrochlorothiazide 25 mg tablet 25 mg PO QAM 09/15/21 09/15/21 History losartan 50 mg tablet 50 mg PO QAM 09/15/21 09/15/21 History mepolizumab 100 mg subcutaneous 0 mg subcut .Q 4 WEEKS 09/15/21 09/15/21 History solution (Nucala) multivitamin 1 tab PO DAILY 09/15/21 09/15/21 History tiotropium bromide 2.5 2 puff inhalation DAILY 09/15/21 09/15/21 History mcg/actuation mist for inhalation (Spiriva Respimat) naproxen 500 mg tablet 500 mg PO BID PRN pain #60 tabs 02/23/23 Rx Past Med/Surg History Medical History Ambulates with cane Chronic sinusitis Long-term current use of steroids Allergic bronchopulmonary aspergillosis JOANN (obstructive sleep apnea) no device Asthma inhaler daily and prn Benign essential HTN HTN (hypertension) Hernia Surgical History History of colonoscopy History of tooth extraction History of tonsillectomy Status post uvulopalatopharyngoplasty History of ear surgery mastoid sx S/P hernia surgery Family History Grandfather (Paternal) Family history of diabetes mellitus Grandfather (Maternal) Family history of diabetes mellitus Family history of esophageal cancer Other Asthma No family history of adverse response to anesthesia Social History Smoking Status: Former smoker Second Hand Exposure: No; Do You Dip or Chew Tobacco: No (quit 10 years ago); Hx Alcohol Use: Yes Alcohol type: beer Hx Substance Use: No Preferred Language: Faroese Communication Ability: Effective Cut In Worker Required: No Beliefs That Will Affect Care: None Current Living Situation: Spouse current occupational status: employed Other Information That Helps Us Care for You: No Feels Safe at Home: Yes Safety Concerns: Feels Safe At This Time Assistive Devices: Cane Review of Systems Review of Systems: As per HPI, all other systems reviewed and negative Physical Exam Physical Exam: GENERAL: Slightly uncomfortable, pleasant, obese, no respiratory distress, episodic shivering SKIN: Pallor, warm HEENT: Partial alopecia, pale palpebral conjunctivae, no ptosis, dry buccal mucosa NECK : Supple, short neck, no tenderness CHEST : Decreased breath sounds, no tenderness HEART : Tachycardic, no obvious murmurs ABDOMEN: Some distention, nontender RECTAL : Intact sphincter, dark brown stool (FOBT negative) BACK : Low back tenderness, negative SLR EXTREMITIES : Bilateral hand and wrist swelling with minimal tenderness, right hand splint noted, no LE swelling/tenderness NEUROLOGIC : Coherent, no facial asymmetry, MMTS BUE 3/5 (limited by pain), BLE 3/5 Results & Data Results & Data Vital Signs (Past 12 Hours) Vital Signs Temp Pulse Pulse Resp BP BP Pulse Ox 09/12/23 02:00 131 H 22 92 09/12/23 02:00 111/75 09/12/23 01:02 09/12/23 01:01 130 H 20 126/88 95 09/12/23 00:42 130 H 09/11/23 21:16 36.7 C 137 H 18 138/72 92 O2 Del Method 09/12/23 02:00 Room Air 09/12/23 02:00 09/12/23 01:02 Room Air 09/12/23 01:01 Room Air 09/12/23 00:42 09/11/23 21:16 Room Air Laboratory Results Laboratory Results WBC 16.46 K/ul (4.8-10.8) H 09/11/23 22:15 RBC 4.15 M/uL (4.70-6.10) L 09/11/23 22:15 Hgb 13.0 g/dl (14.0-18.0) L 09/11/23 22:15 Hct 39.3 % (42.0-52.0) L 09/11/23 22:15 MCV 94.7 fL (80.0-100.0) 09/11/23 22:15 MCH 31.3 pg (25.0-34.0) 09/11/23 22:15 MCHC 33.1 g/dL (32.0-36.0) 09/11/23 22:15 RDW Std Deviation 48.9 fL (36.4-46.3) H 09/11/23 22:15 RDW Coeff of Karishma 14.2 % (11.5-14.5) 09/11/23 22:15 Plt Count 357 K/uL (130-400) 09/11/23 22:15 MPV 9.5 fL (9.4-12.4) 09/11/23 22:15 Immature Gran % (Auto) 0.5 % 09/11/23 22:15 Neut % (Auto) 96.9 % 09/11/23 22:15 Lymph % (Auto) 1.4 % 09/11/23 22:15 Morrison % (Auto) 1.0 % 09/11/23 22:15 Eos % (Auto) 0.1 % 09/11/23 22:15 Baso % (Auto) 0.1 % 09/11/23 22:15 Neut # (Auto) 15.94 K/uL (1.40-6.50) H 09/11/23 22:15 Lymph # (Auto) 0.23 K/uL (1.20-3.40) L 09/11/23 22:15 Morrison # (Auto) 0.17 K/uL (0.11-0.59) 09/11/23 22:15 Eos # (Auto) 0.01 K/uL (0.00-0.50) 09/11/23 22:15 Baso # (Auto) 0.02 K/uL (0.00-0.20) 09/11/23 22:15 Immature Gran # (Auto) 0.09 K/uL (0.01-0.20) 09/11/23 22:15 PT 10.9 Seconds (9.0-12.0) 09/11/23 22:15 INR 1.0 (0.9-1.1) 09/11/23 22:15 APTT 25 Seconds (21-31) 09/11/23 22:15 PTT Ratio 0.9 09/11/23 22:15 Sodium 139 mmol/L (136-145) 09/11/23 22:15 Potassium 3.9 mmol/L (3.5-5.1) 09/11/23 22:15 Chloride 105 mmol/L (98-107) 09/11/23 22:15 Carbon Dioxide 21 mmol/L (21-32) 09/11/23 22:15 Anion Gap 13 (3-11) H 09/11/23 22:15 BUN 28 mg/dl (6-23) H 09/11/23 22:15 Creatinine 0.99 mg/dl (0.6-1.4) 09/11/23 22:15 Est Cr Clr Drug Dosing Not Reportable 09/11/23 22:15 Est GFR ( Amer) 89.7 ml/min 09/11/23 22:15 Est GFR (Non-Af Amer) 77.4 ml/min 09/11/23 22:15 BUN/Creatinine Ratio 28.3 (10-20) H 09/11/23 22:15 Glucose 80 mg/dl (70-99(Fasting)) 09/11/23 22:15 Calcium 9.6 mg/dl (8.6-10.3) 09/11/23 22:15 Total Bilirubin 0.6 mg/dl (0.2-1.0) 09/11/23 22:15 AST 56 U/L (13-39) H 09/11/23 22:15 ALT 64 U/L (7-52) H 09/11/23 22:15 Alkaline Phosphatase 93 U/L (34-104) 09/11/23 22:15 Total Creatine Kinase 30 U/L (30-223) 09/11/23 22:15 Troponin I High Sens 13.0 pg/ml (0-20) 09/11/23 22:15 Total Protein 8.1 gm/dl (6.0-8.3) 09/11/23 22:15 Albumin 3.4 gm/dl (3.4-5.0) 09/11/23 22:15 Globulin 4.7 gm/dl (2.5-4.0) H 09/11/23 22:15 Albumin/Globulin Ratio 0.7 (0.9-2) L 09/11/23 22:15 TSH 1.877 uIu/ml (0.300-4.500) 09/11/23 22:15 Urine Color Yellow 09/11/23 22:52 Urine Appearance Clear (Clear) 09/11/23 22:52 Urine pH 5.5 (4.5-7.5) 09/11/23 22:52 Ur Specific Hindman 1.029 (1.000-1.030) 09/11/23 22:52 Urine Protein 1+ (Negative) H 09/11/23 22:52 Urine Glucose (UA) Negative (Negative) 09/11/23 22:52 Urine Ketones Negative (Negative) 09/11/23 22:52 Urine Blood Negative (Negative) 09/11/23 22:52 Urine Nitrite Negative (Negative) 09/11/23 22:52 Urine Bilirubin Negative (Negative) 09/11/23 22:52 Urine Urobilinogen Negative (Negative) 09/11/23 22:52 Ur Leukocyte Esterase Negative (Negative) 09/11/23 22:52 Urine WBC (Auto) 1-5 /hpf (0-5) 09/11/23 22:52 Urine RBC (Auto) 0-4 /hpf (0-4) 09/11/23 22:52 U Hyaline Cast (Auto) 5-10 /lpf (0-5) H 09/11/23 22:52 U Epithel Cells (Auto) 20-30 /lpf (0-5) H 09/11/23 22:52 Urine Bacteria (Auto) Negative (Negative) 09/11/23 22:52 Adenovirus (PCR) Not Detected (NotDetected) 09/12/23 00:55 B. pertussis DNA (PCR) Not Detected (NotDetected) 09/12/23 00:55 B.parapertussis DNA PCR Not Detected (NotDetected) 09/12/23 00:55 C. pneumoniae DNA (PCR) Not Detected (NotDetected) 09/12/23 00:55 Coronavirus OC43 (PCR) Not Detected (NotDetected) 09/12/23 00:55 Coronavirus HKU1 (PCR) Not Detected (NotDetected) 09/12/23 00:55 Coronavirus 229E (PCR) Not Detected (NotDetected) 09/12/23 00:55 SARS-CoV-2 (PCR) Not Detected (NotDetected) 09/12/23 00:55 Coronavirus NL63 (PCR) Not Detected (NotDetected) 09/12/23 00:55 Human Metapneumovir PCR Not Detected (NotDetected) 09/12/23 00:55 Influenza Type A (PCR) Not Detected (NotDetected) 09/12/23 00:55 Influenza Type B (PCR) Not Detected (NotDetected) 09/12/23 00:55 M. pneumoniae (PCR) Not Detected (NotDetected) 09/12/23 00:55 Parainfluenza 1 (PCR) Not Detected (NotDetected) 09/12/23 00:55 Parainfluenza 2 (PCR) Not Detected (NotDetected) 09/12/23 00:55 Parainfluenza 3 (PCR) Not Detected (NotDetected) 09/12/23 00:55 Parainfluenza 4 (PCR) Not Detected (NotDetected) 09/12/23 00:55 RSV (PCR) Not Detected (NotDetected) 09/12/23 00:55 Entero/Rhino (PCR) Not Detected (NotDetected) 09/12/23 00:55 Impressions Abdomen/Pelvis CT 09/11/23 22:49 Exam(s): CT ABDOMEN + PELVIS With Contrast IV Amt: 115 ML OPTIRAY 320 EXAM: CT Abdomen and Pelvis With Intravenous Contrast CLINICAL HISTORY: Reason for exam: Abdominal and back pain, peripheral edema. TECHNIQUE: Axial computed tomography images of the abdomen and pelvis with intravenous contrast. CTDI is 27 mGy and DLP is 1446.47 mGy-cm. Automated exposure control was utilized for the study. A dose lowering technique was utilized adhering to the principles of ALARA. CONTRAST: Patient received 115 ML OPTIRAY 320 of IV contrast COMPARISON: No relevant prior studies available. FINDINGS: Lung bases: Unremarkable. No mass. No consolidation. ABDOMEN: Liver: Unremarkable. No mass. Gallbladder and bile ducts: Unremarkable. No calcified stones. No ductal dilation. Pancreas: Unremarkable. No mass. No ductal dilation. Spleen: Unremarkable. No splenomegaly. Adrenals: Unremarkable. No mass. Kidneys and ureters: Unremarkable. No solid mass. No hydronephrosis. Stomach and bowel: Unremarkable. No obstruction. No mucosal thickening. PELVIS: Appendix: No findings to suggest acute appendicitis. Bladder: Mild bladder distention. Reproductive: Unremarkable as visualized. ABDOMEN and PELVIS: Intraperitoneal space: Unremarkable. No free air. No significant fluid collection. Bones/joints: No acute fracture. No dislocation. Soft tissues: Unremarkable. Vasculature: Unremarkable. No abdominal aortic aneurysm. Lymph nodes: Unremarkable. No enlarged lymph nodes. IMPRESSION: No acute findings in the abdomen or pelvis. Electronically signed by: Shaq Parada MD 09/12/23 02:01 AM Chest CTA 09/11/23 22:49 Exam(s): CTA CHEST IV Amt: 115 ML OPTIRAY 320 EXAM: CT Angiography Chest With Intravenous Contrast CLINICAL HISTORY: Reason for exam: PE/peripheral edema, question obstruction. TECHNIQUE: Axial computed tomographic angiography images of the chest with intravenous contrast. CTDI is 28 mGy and DLP is 913.31 mGy-cm. Automated exposure control was utilized for the study. A dose lowering technique was utilized adhering to the principles of ALARA. MIP reconstructed images were created and reviewed. COMPARISON: No relevant prior studies available. FINDINGS: Pulmonary arteries: Unremarkable. No pulmonary embolism. Aorta: No acute findings. No thoracic aortic aneurysm. Lungs: Unremarkable. No mass. No consolidation. Pleural space: Unremarkable. No significant effusion. No pneumothorax. Heart: Unremarkable. No cardiomegaly. No significant pericardial effusion. No evidence of RV dysfunction. Bones/joints: No acute fracture. No dislocation. Soft tissues: Unremarkable. Lymph nodes: Unremarkable. No enlarged lymph nodes. IMPRESSION: Normal chest CTA. No pulmonary embolism. Electronically signed by: Shaq Parada MD 09/12/23 01:15 AM Diagnostic Findings EKG as per my interpretation : Rate 140, sinus tachycardia, normal axis, ST depression lateral leads
[2023-09-12 02:52] LABS: Magnesium 1.7 mg/dl (1.7-2.4)
[2023-09-12] MEDS: MoRPHine SULFATE 4 MG/ML 1 ML CARP\\VIAL IV STA (03:15)
[2023-09-12] MEDS: ONDANSETRON INJ 2 MG/ML 2 ML VIAL IV STA (03:15)
[2023-09-12] MEDS: NSS + 20MEQ KCL 20 MEQ/1,000 ML BAG IV ONE (03:21)
--- NOTE | 2023-09-12 04:32 | CT Scan Report ---
Exam(s): CT HEAD Without Contrast EXAM: CT Head Without Intravenous Contrast CLINICAL HISTORY: Reason for exam: ams. TECHNIQUE: Axial computed tomography images of the head/brain without intravenous contrast. CTDI is 38.24 mGy and DLP is 625.8 mGy-cm. Automated exposure control was utilized for the study. A dose lowering technique was utilized adhering to the principles of ALARA. COMPARISON: No relevant prior studies available. FINDINGS: Limitations: Exam limited secondary to patient motion artifact. Brain: Unremarkable. No hemorrhage. No significant white matter disease. No edema. Ventricles: Unremarkable. No ventriculomegaly. Bones/joints: Unremarkable. No acute fracture. Soft tissues: Unremarkable. Sinuses: Bilateral left greater right maxillary sinus inflammatory change. Mastoid air cells: Unremarkable as visualized. No mastoid effusion. IMPRESSION: Limited exam Grossly no acute findings in the head/brain. Electronically signed by: Shaq Parada MD 09/12/23 04:31 AM
[2023-09-12 04:37] LABS: Calcium 9.6 mg/dl (8.6-10.3); Creatinine Clr Calc Pharmacy 75.3 ml/min; Est GFR (African American) 74.8 ml/min; Est GFR (Non-African American) 64.6 ml/min; Potassium 3.8 mmol/L (3.5-5.1)
[2023-09-12] MEDS: MAGNESIUM SULFATE / D5W 1 GM/100 ML BAG IV SCH (04:43)
[2023-09-12] MEDS: DAPTOmycin 350 MG in SYRINGE 0 ML IV SCH (04:43)
[2023-09-12] MEDS: CEFEPIME 2,000 MG in SYRINGE 0 ML IV SCH (04:43)
[2023-09-12 04:57] LABS: Ferritin 661.1 ng/ml (8-388)
[2023-09-12 05:04] LABS: Basophils # (auto) 0.05 K/uL (0.00-0.20); Basophils % (auto) 0.2 %; Eosinophils # (auto) 0.04 K/uL (0.00-0.50); Eosinophils % (auto) 0.1 %; Hematocrit (blood only) 36.5 % (42.0-52.0); Hemoglobin 12.2 g/dl (14.0-18.0); Immature Granulocytes # (auto) 0.37 K/uL (0.01-0.20); Immature Granulocytes % (auto) 1.3 %; Lymphocytes # (auto) 0.15 K/uL (1.20-3.40); Lymphocytes % (auto) 0.5 %; Mean Corpuscular Hemoglobin 31.8 pg (25.0-34.0); Mean Corpuscular Hgb Conc 33.4 g/dL (32.0-36.0); Mean Corpuscular Volume 95.1 fL (80.0-100.0); Mean Platelet Volume 10.1 fL (9.4-12.4); Monocytes # (auto) 1.05 K/uL (0.11-0.59); Monocytes % (auto) 3.6 %; Neutrophils # (auto) 27.24 K/uL (1.40-6.50); Neutrophils % (auto) 94.3 %; Platelet Count 349 K/uL (130-400); RDW Coefficient of Variation 14.4 % (11.5-14.5); RDW Standard Deviation 49.8 fL (36.4-46.3); Red Blood Count 3.84 M/uL (4.70-6.10); Reticulocyte % 1.84 % (0.50-2.00); Toxic Vacuolation 1+
[2023-09-12 05:35] LABS: Folate (Folic Acid),Ser orPlas 16.48 ng/ml (>5.38)
[2023-09-12] MEDS: LORazepam 0.5 MG TAB PO PRN (05:36)
--- NOTE | 2023-09-12 05:38 | CT Scan Report ---
Exam(s): CT L SPINE With Contrast IV Amt: 115 ML OPTIRAY 320 EXAM: CT Lumbar Spine With Intravenous Contrast CLINICAL HISTORY: Reason for exam: back pain/sepsis. TECHNIQUE: Axial computed tomography images of the lumbar spine with intravenous contrast. CTDI is 1446.47 mGy and DLP is 27.14 mGy-cm. Automated exposure control was utilized for the study. A dose lowering technique was utilized adhering to the principles of ALARA. CONTRAST: Patient received 115 ML OPTIRAY 320 of IV contrast COMPARISON: No relevant prior studies available. FINDINGS: Limitations: Examination is markedly limited given chosen modality and lack of soft tissue algorithm reformatted images. Recommend MRI if there is further concern for infection. Vertebrae: No evidence of acutely displaced fracture or dislocation spine. Degenerative changes in the lumbar spine including loss of disc space height, osteophyte formation, and facet arthropathy. Soft tissues: See above. IMPRESSION: 1. Examination is markedly limited given chosen modality and lack of soft tissue algorithm reformatted images. Recommend MRI if there is further concern for infection. 2. Degenerative changes within the lumbar spine as described. Electronically signed by: Sukhi Lujan MD 09/12/23 05:37 AM
[2023-09-12] MEDS: dexAMETHasone 4 MG in SYRINGE 0 ML IV ONE (06:07)
[2023-09-12] MEDS ORDERED: LACTATED RINGER'S 1,000 ML IV ONE ×2 (06:30→08:30)
--- NOTE | 2023-09-12 06:55 | XRay Report ---
XR chest 1V not portable HISTORY: Chest pain, nonspecific COMPARISON: Chest CTA 09/11/2023. Chest x-ray 02/23/2023. FINDINGS: No pneumothorax. No pleural effusions. There are low lung volumes with elevation the right hemidiaphragm and bibasilar linear densities consistent with subsegmental atelectasis. This is simila r to the prior study. The heart remains enlarged. No evidence for pulmonary edema. Advanced degenerat carolyn changes within the shoulders. There are old, healed right-sided rib fractures. IMPRESSION: No significant change compared to the prior study. No acute process. ACT 112: Negative or not required by law. Electronically signed by: Parish Arias M.D. 09/12/2023 6:53 AM
[2023-09-12] MEDS: LACTATED RINGER'S 1,000 ML IV ONE (08:21)
[2023-09-12] MEDS: AZELASTINE HCL 0.1% NASAL 200 SPRAYS/27,400 MCG BTL SCH (09:15)
[2023-09-12] MEDS: MONTELUKAST SODIUM 10 MG TABLET PO SCH (09:16)
[2023-09-12] MEDS: MULTIVITAMIN TAB PO SCH (09:16)
[2023-09-12] MEDS: MELOXICAM 7.5 MG TAB PO SCH (09:16)
[2023-09-12] MEDS: UMECLIDINIUM BROMIDE 62.5MCG/BLISTER 7 PUFFS/INHALER INH SCH (09:16)
[2023-09-12] MEDS: DULoxetine HCL 60 MG CAP PO SCH (09:16)
[2023-09-12] MEDS: predniSONE 10 MG TABLET PO SCH (09:16)
[2023-09-12] MEDS: FLUTICASONE/VILANTEROL 200/25MCG 14 PUFFS/INHALER INH SCH (09:17)
[2023-09-12] MEDS: ENOXAPARIN INJ 40 MG/0.4 ML SYR SQ SCH (09:39)
[2023-09-12] MEDS: METOPROLOL SUCC 25MG EXT REL TAB PO SCH (10:36)
--- OUTSIDE RECORDS SUMMARY | 2023-09-12 10:38 | External Medical Summary | Summary of Care ---
Author Name Unknown Organization [facility] Address [address] [facility] [place] [address] Phone [phone] Care Team Providers Care Route Service Representative Name Role Phone Ruel Fajardo MD Primary Care Provide r Reason for Visit * Reason Comments eRx-Medication Refill Encounter Details Date Type Department Care Team (Late st Contact Info) Description 09/04/2023 Refill Allergy/Immunology Joesph Harmon [place] [address] [place] [address] Adriel Montalvo MD [address] [place] [address] Allergies Active Allergy Reactions Criticality Noted Date Comments Amoxicillin Rash 07/17/2011 documented as of this encounter (statuses as of 09/04/2023) Medications Medication Sig Dispensed Refills Start Date End Date Status IBUPROFEN 200 MG PO CAPS None Entered 0 Active METAXALONE 800 MG PO TABS take one tab by mouth three times a day as needed 0 05/15/2011 Active Pseudoephedrine-guaiF ENesin ER 120-1200 MG Tablet Extended Release 12 Hour Take 1 Tablet by mouth in the morning and 1 Tablet before bedtime. As needed. 0 Active Anacin 400-32 MG Oral Tablet (Aspirin-Caffeine) Take 1 Tab by mouth daily. Take 3 tabs every morning and 2 tabs at bedtime 0 Active Multi-Vitamins Oral Tablet Take 1 Tablet by mouth in the morning. 0 Active Nucala 100 MG Subcutaneous Solution Reconstituted (Mepolizumab)Indicati ons:Severe persistent asthma without complication,Allergic eosinophilia Inject 1 Each under the skin every 4 weeks. 1 Each 11 12/16/2020 Active DULoxetine HCl 60 MG Oral Capsule Delayed Release Particles (Cymbalta)Indications :Low back pain without sciatica, unspecified back pain laterality, unspecified chronicity Take 1 Cap by mouth daily. Do not cut, crush or chew 30 Cap 2 01/20/2021 Active Meloxicam 7.5 MG Oral Tablet Take 1 Tab by mouth daily. 30 Tab 5 02/17/2021 Active Vitamin B-2 100 MG Oral Tablet (vitamin B-2)Indications:CIDP (chronic inflammatory demyelinating polyneuropathy) ([facility]) Take by mouth 4 Tablets in the morning. 120 Tablet 3 12/22/2021 Active Wixela Inhub 500-50 MCG/ACT Inhalation Aerosol Powder Breath Activated (Fluticasone-Salmeter ol)Indications:Severe persistent asthma without complication INHALE ONE PUFF BY MOUTH TWICE DAILY 180 Each 3 02/01/2022 Active Atorvastatin Calcium 10 MG Oral Tablet (Lipitor)Indications: Mixed hyperlipidemia Take by mouth 1 Tablet in the morning. 30 Tablet 2 02/23/2022 Active Gabapentin 100 MG Oral Capsule (Neurontin)Indication s:CIDP (chronic inflammatory demyelinating polyneuropathy) ([facility]) 3 tabs at bedtime 90 Capsule 5 05/22/2022 Active Albuterol Sulfate (2.5 MG/3ML) 0.083% Inhalation Nebulization Solution (Proventil)Indication s:Wheeze INHALE ONE VIAL VIA NEBULIZER EVERY 4 HOURS NEEDED FOR WHEEZING OR SHORTNESS OF BREATH 180 mL 1 10/14/2022 Active Losartan Potassium 25 MG Oral Tablet (Cozaar)Indications:H TN, goal below 140/90 Take 2 Tablets by mouth in the morning. 180 Tablet 1 12/11/2022 Active Fish Oil 1000 MG Oral Capsule Take 1 Capsule by mouth in the morning. 0 Active D3-1000 25 MCG (1000 UT) Oral Capsule (Cholecalciferol) Take 1 Capsule by mouth in the morning. 0 Active Mometasone Furoate 50 MCG/ACT Nasal Suspension inhale 2 SPRAYS INTO EACH NOSTRIL DAILY. 17 g 11 01/23/2023 Active Spiriva Respimat 2.5 MCG/ACT Inhalation Aerosol Solution (Tiotropium [place] Monohydrate)Indicatio ns:Severe persistent asthma without complication Inhale 2 Puffs by mouth in the morning. 12 g 2 02/07/2023 Active Montelukast Sodium 10 MG Oral Tablet (Singulair)Indication s:Asthma, severe persistent Take 1 Tablet by mouth in the morning. 90 Tablet 3 02/19/2023 Active hydroCHLOROthiazide 12.5 MG Oral Capsule (Hydrodiuril)Indicati ons:HTN, goal below 140/90 Take 3 Capsules by mouth in the morning. - on days of IVIG infusion. 60 Capsule 1 05/08/2023 Active Albuterol Sulfate HFA 108 (90 Base) MCG/ACT Inhalation Aerosol SolutionIndications:S evere persistent asthma without complication INHALE 2 PUFFS BY MOUTH EVERY 4 HOURS NEEDED FOR WHEEZING 18 g 5 06/20/2023 Active Cyclobenzaprine HCl 5 MG Oral Tablet (Flexeril)Indications :Weakness of both legs,Numbness and tingling of foot,Lumbar compression fracture (HCC) TAKE ONE TABLET BY MOUTH TWICE DAILY NEEDED FOR MUSCLE SPASM 30 Tablet 1 07/13/2023 Active predniSONE 10 MG Oral Tablet (Deltasone) 1-3 tabs daily as directed 90 Tablet 0 07/16/2023 Active Azelastine HCl 137 MCG/SPRAY Nasal Solution Administer 2 Sprays into nostril in the morning and 2 Sprays before bedtime. 30 mL 11 07/23/2023 Active hydroCHLOROthiazide 25 MG Oral Tablet (Hydrodiuril)Indicati ons:HTN, goal below 140/90 Take 1 Tablet by mouth in the morning. 90 Tablet 1 07/24/2023 Active hydrALAZINE HCl 25 MG Oral Tablet (Apresoline)Indicatio ns:HTN, goal below 140/90 Take 1 Tablet by mouth every 4 hours as needed for Hypertension. If Blood pressure above 160/100 60 Tablet 0 07/31/2023 Active Metoprolol Succinate ER 25 MG Oral Tablet Extended Release 24 Hour (toPROL XL)Indications:HTN, goal below 140/90 Take 1 Tablet by mouth in the morning. And can take 4 tabs daily during IVIG treatment days. 150 Tablet 1 08/08/2023 Active Hospital, Clinic, or Other Facility Administered Medication Ordered Dose Route Frequency Start Date End Date Status Albuterol Sulfate (Proventil) (2.5 MG/3ML) 0.083% inhalation solution 2.5 mgIndications:Severe persistent asthma without complication 2.5 mg NEBULIZER PRN 09/20/2022 09/20/2023 Acti ve Albuterol Sulfate (Proventil) (5 MG/ML) 0.5% *conc* inhalation solution 2.5 mgIndications:Severe persistent asthma without complication 2.5 mg NEBULIZER PRN 09/20/2022 09/20/2023 Acti ve Mepolizumab (Nucala) inj 100 mgIndications:Eosinophi lic asthma 100 mg SC [id number] 05/22/2023 04/22/2024 Active documented as of this encounter (statuses as of 09/04/2023) Active Problems Problem Noted Date Diagnosed Date Mild aortic valve stenosis 09/27/2022 Wheeze 06/28/2021 CIDP (chronic inflammatory demyelinating polyneu ropathy) 02/07/2021 Myopathy 01/27/2021 Hereditary and idiopathic peripheral neuropathy 01/27/2021 Polyneuropathy, peripheral sensorimotor axonal 0 01/27/2021 Axonal sensorimotor neuropathy 01/27/2021 Allergic eosinophilia 12/16/2020 Osteoporosis 11/18/2020 Dizziness 11/10/2016 History of left mastoidectomy 11/10/2016 Sensorineural hearing loss (SNHL) of right ear 0 11/10/2016 Mixed conductive and sensori neural hearing loss of left ear with restricted hearing of right ear 11/10/2016 Chronic sphenoidal sinusitis 04/28/2014 Other chronic sinusitis 04/28/2014 Chronic maxillary sinusitis 04/28/2014 Current chronic use of systemic steroids 012 S/P UPPP (uvulopalatopharyngoplasty) 03/26/2012 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 12 Asthma, severe persistent 10/16/2011 Mixed rhinitis 10/16/2011 Elevated IgE level 10/11/2011 HTN, goal below 140/90 JOANN (obstructive sleep apnea) documented as of this encounter (statuses as of 09/04/2023) Resolved Problems Problem Noted Date Diagnosed Date Resolved Date Severe obesity with body mas s index (BMI) of 35.0 to 39.9 with serious comorbidity 09/06/2022 Wedge compression fracture o f unspecified lumbar vertebra, initial encounter for closed fracture 09/06/2022 09/06/2022 Compression of lumbar vertebra 11/18/2020 01/20/2021 Asthma, moderate persistent 08/29/2011 10/16/2011 Asthma exacerbation 07/17/2011 05/13/20 12 documented as of this encounter (statuses as of 09/04/2023) Immunizations Name Administration Dates Next Due COVID-19 mRNA, LNP-s, No Pre serve, 2-Dose Series (Moderna) 06/10/2021,11/01/2020,10/04/2020 COVID-19, mRNA, LNP-s, PF, B ooster, 100mcg/0.5mg (Moderna) 06/10/2021 Hepatitis B Vaccine, Recombi nant, Adjuvanted, 20 mcg/mL (Heplisav-B) 10/04/2020 Hepatitis B, 20+ yrs 10/04/2020 Pneumococcal Conjugate Vacc, 13 Valent (Prevnar) 06/03/2019 Pneumococcal Polysaccharide PPV23 (Pneumovax) 03/18/2012 Season Influenza, Quad, PF, Adjuvanted, 65+ Yrs, IM (FLUAD) 05/12/2020 Seasonal Influenza, PF, 6 M & above, IM , (FluLaval or Fluzone) 04/22/2018,05/14/2017 05/14/2018 Seasonal Influenza, Quadriva lent Hd (Fluzone Hd) 2023,05/15/2022,06/09/2021 Seasonal Influenza, Quadriva lent, No Preserve, IM 07/10/2016 07/10/2017 Seasonal Influenza, Split, I IV3, With Preserve, Inj 03/23/2014,06/23/2013 Seasonal Influenza, Trivalen t, Adjuvanted, 65+ yrs 06/03/2019 documented as of this encounter Social History Tobacco Use Types Packs/Day Years Used Date Smoking Tobacco: Former Cigarettes 2 3 0 06/25/1969 - 06/25/1972 Smokeless Tobacco: Former Snuff Comments:no passive smoke Alcohol Use Standard Drinks/Week Comments Yes 0 (1 standard drink = 0.6 oz pure alcohol) occasional beer- not at present time04/22/20 PHQ-2 Answer Date Recorded PHQ Adult Total Score 6 05/11/2023 Hunger Vital Sign Answer Date Recorded Worried About Running Out of Food in the Last Ye ar Never true 10/10/2019 Ran Out of Food in the Last Year Never true 10/10/2019 Sex and Gender Information Value Date Recorded Sex Assigned at Not on file Gender Identity Not on file Sexual Orientation Not on file Job Start Date Occupation Industry Not on file Not on file Not on file documented as of this encounter Miscellaneous Notes * Telephone Encounter - Lali Tesfaye LPN - 09/04/2023 3:47 PM EDTRefused Prescriptions: Disp Refills predniSONE 10 MG Oral Tablet (Deltasone) 90 Tab*0 Sig: TAKE 1-3TABLETS EVERY DAY DIRECTEDRefused By: YUSRA TESFAYEeasprincess for Refusal: Duplicate Request------ documented in this encounter Plan of Treatment Upcoming Encounters Date Type Department Care Team (Late st Contact Info) Description 09/12/2023 1:00 PM EDT Nurse Only Pulmonary Medicine, [facility] [address] [facility] [place] [address] Gw, Nurse Pulmonary [address] [facility] [place] [address] 09/24/2023 1:30 PM EDT Hem/Onc Treatment Hematology/Oncology Treatment, [address], [place] [phone] [place], Chair 1 Hem Onc [address] [place] [address] 09/25/2023 1:00 PM EDT Hem/Onc Treatment Hematology/Oncology Treatment, [address] [place] [phone] [place], Chair 10 Hem Onc [facility] [address] [place] [address] [place] [address] 09/26/2023 1:00 PM EDT Hem/Onc Treatment Hematology/Oncology Treatment, [place] [address] [facility] [phone] [place], Chair 3 Hem Onc [address] [place] [address] 09/27/2023 11:30 AM EDT Hem/Onc Treatment Hematology[address]cology [address] [phone] 10/19/2023 11:15 AM EDT Office Visit [facility]ol[facility] [address] [facility] [place] [address] Martita Gaston MD [address] [place] [address] 11/14/2023 3:00 PM EDT Office Visit Family Medicine [address] [phone] Ruel Fajardo MD [address] [place] [address] [place] [address] 11/20/2023 1:30 PM EDT Office Visit Allergy/Immunology [address] [place] [address] Adriel Montalvo MD [address] [place] [address] [place] [address] 07/25/2024 1:40 PM EST Office Visit Neurology [address] [place] [address] John Dodge, [address] [place] [address] [place] [address] Scheduled Procedures Name Priority Associated Diagnoses Date/Ti me COLONOSCOPY FLEXIBLE PROXIMA L DIAGNOSTIC Recall History of colonic polyps Health Maintenance Due Date Last Done Comments DTaP,Tdap,and Td Vaccines (1 - Tdap) 1974 Zoster Vaccines (1 of 2) 1974 Pneumococcal Vaccine: 65+ Years (3 of 3 - PPSV23 or PCV20) 07/29/2019 06/03/2019, 03/18/2012 Hepatitis B (2 of 2 - CpG 2-dose series) 11/01/2020 10/04/2020, 10/04/2020 *BISPHONATE OR OTHER ACCEPTABLE MEDICATION NEEDED FOR OSTEOPOROSIS (REFER TO SMARTSET #1146) 11/22/2020 COVID-19 Vaccine (3 - Moderna risk series) 07/08/2021 06/10/2021, 06/10/2021, 11/01/2020, Additional history exists DXA Scan 07/29/2021 07/29/2019 Depression Screening 05/11/2024 05/11/2023 GFR 08/22/2024 08/23/2023, 08/23, 02/20/2022, Additional history exists Albumin/Creatinine Ratio 09/06/2025 023, 02/20/2022, 08/07/2019 Diabetes Screening 08/22/2026 08/23/2023, 0 09/06/2022, 02/20/2022, Additional history exists Lipid Panel 09/07/2027 09/06/2022, 0802/2022, 08/07/2019, Additional history exists COLONOSCOPY-EVERY 5 YRS AGES 18-100 11/22/2027 11/21/2022, 11/21/2022, 04/03/2016, Additional history exists AAA Screening Completed 08/11/2019 VITAMIN D LEVEL ONCE IN A LIFETIME-USE SMARTSET# 32113 Completed 11/18/2020 Influenza Vaccine (FLU shot) Completed , 05/15/2022, 06/09/2021, Additional history exists GARDASIL-HPV IMMUNIZATION SERIES Aged Out No longer eligible based on patient's age to complete this topic MENINGOCOCCAL (MENACTRA/MENVEO) Aged Out No longer eligible based on patient's age to complete this topic documented as of this encounter Medical Devices Not on filedocumented as of this encounter Care Teams Route Service Representative Relationship Specialty Start Date End Date Ruel Fajardo MD [address] [place] [address] [place] [id number] PCP - General Family Medicine 10/17/19 documented as of this encounter
--- OUTSIDE RECORDS SUMMARY | 2023-09-12 10:38 | External Medical Summary | Summary of Care ---
Author Name Unknown Organization [facility] Address [address] [facility] [place] [address] Phone [phone] Care Team Providers [employer] Name Role Phone Ruel Fajardo MD Primary Care Provide r Reason for Visit * Reason Comments IV Therapy IVIG 09/26 * Episode Based Medications (Routine) - Authorized Specialty Diagnoses / Procedures Referred By Contac t Referred To Contact Diagnoses CIDP (chronic inflammatory demyelinating polyneuropathy) ([facility]) Procedures SC INJ IVIG PRIVIGEN 500 MG John Dodge, DO [address] [place] [id number] Anc Hem/Onc Joesph Harmon DEPT CLOSED - 05/08/23 [address] [place] [phone] Referral ID Status Reason Start Date Expiration Date V isits Requested Visits Authorized [id number] Authorized 03/16/2023 03/16/2024 [id number] Encounter Details Date Type Department Care Team (Latest Contact Info) Description 08/30/2023 11:45 AM EST Hem/Onc Treatment Hematology/Oncolog y Treatment, [place] [address] [place] [phone] [place], Chair 2 Hem Onc Sc[address] [place] [id number] CIDP (chronic inflammatory demyelinating polyneuropathy) ([facility])* Allergies Active Allergy Reactions Criticality Noted Date Comments Amoxicillin Rash 07/17/2011 documented as of this encounter (statuses as of 08/30/2023) Medications Medication Sig Dispensed Refills Start Date End Date Status IBUPROFEN 200 MG PO CAPS None Entered 0 Active METAXALONE 800 MG PO TABS take one tab by mouth three times a day as needed 0 05/15/2011 Active Pseudoephedrine-guai FENesin ER 120-1200 MG Tablet Extended Release 12 [...] Active Nucala 100 MG Subcutaneous Solution Reconstituted (Mepolizumab)Indicat ions:Severe persistent asthma without complication,Allergi c eosinophilia Inject 1 Each under the skin every 4 weeks. 1 Each 11 12/16/2020 Active Zoster Vac Recomb Adjuvanted 50 MCG/0.5ML Intramuscular Suspension Reconstituted (Shingrix)Indication s:Need for shingles vaccine Inject 0.5 mL into a large muscle now and repeat dose in 60 to 180 days 1 Each 1 01/20/2021 Active DULoxetine HCl 60 MG Oral Capsule Delayed Release Particles (Cymbalta)Indication s:Low back pain without sciatica, unspecified back pain laterality, unspecified chronicity Take 1 Cap by mouth daily. Do not cut, crush or chew 30 Cap 2 01/20/2021 Active Meloxicam 7.5 MG Oral Tablet Take 1 Tab by mouth daily. 30 Tab 5 02/17/2021 Active Vitamin B-2 100 MG Oral Tablet (vitamin B-2)Indications:CIDP (chronic inflammatory demyelinating polyneuropathy) ([facility]) Take by mouth 4 Tablets in the morning. 120 Tablet 3 12/22/2021 Active Wixela Inhub 500-50 MCG/ACT Inhalation Aerosol Powder Breath Activated (Fluticasone-Salmete rol)Indications:Karla re persistent asthma without complication INHALE ONE PUFF BY MOUTH TWICE DAILY 180 Each 3 02/01/2022 Active Atorvastatin Calcium 10 MG Oral Tablet (Lipitor)Indications :Mixed hyperlipidemia Take by mouth 1 Tablet in the morning. 30 Tablet 2 02/23/2022 Active Gabapentin 100 MG Oral Capsule (Neurontin)Indicatio ns:CIDP (chronic inflammatory demyelinating polyneuropathy) ([facility]) 3 tabs at bedtime 90 Capsule 5 05/22/2022 Active Albuterol Sulfate (2.5 MG/3ML) 0.083% Inhalation Nebulization Solution (Proventil)Indicatio ns:Wheeze INHALE ONE VIAL VIA NEBULIZER EVERY 4 HOURS NEEDED FOR WHEEZING OR SHORTNESS OF BREATH 180 mL 1 10/14/2022 Active Losartan Potassium 25 MG Oral Tablet (Cozaar)Indications: HTN, goal below 140/90 Take 2 Tablets by [...] Respimat 2.5 MCG/ACT Inhalation Aerosol Solution (Tiotropium Randolph Monohydrate)Indicati ons:Severe persistent asthma without complication Inhale 2 Puffs by mouth in the morning. 12 g 2 02/07/2023 Active Montelukast Sodium 10 MG Oral Tablet (Singulair)Indicatio ns:Asthma, severe persistent Take 1 Tablet by mouth in the morning. 90 Tablet 3 02/19/2023 Active hydroCHLOROthiazide 12.5 MG Oral Capsule (Hydrodiuril)Indicat ions:HTN, goal below 140/90 Take 3 Capsules by mouth in the morning. - on days of IVIG infusion. 60 Capsule 1 05/08/2023 Active Albuterol Sulfate HFA 108 (90 Base) MCG/ACT Inhalation Aerosol SolutionIndications: Severe persistent asthma without complication INHALE 2 PUFFS BY MOUTH EVERY 4 HOURS NEEDED FOR WHEEZING 18 g 5 06/20/2023 Active Cyclobenzaprine HCl 5 MG Oral Tablet (Flexeril)Indication s:Weakness of both legs,Numbness and tingling of foot,Lumbar compression fracture ([facility]) TAKE ONE TABLET BY MOUTH TWICE DAILY NEEDED FOR MUSCLE SPASM 30 Tablet 1 07/13/2023 Active predniSONE 10 MG Oral Tablet (Deltasone) 1-3 tabs daily as directed 90 Tablet 0 07/16/2023 Active Azelastine HCl 137 MCG/SPRAY Nasal Solution Administer 2 Sprays into nostril in the morning and 2 Sprays before bedtime. 30 mL 11 07/23/2023 Active hydroCHLOROthiazide 25 MG Oral Tablet (Hydrodiuril)Indicat ions:HTN, goal below 140/90 Take 1 Tablet by mouth in the morning. 90 Tablet 1 07/24/2023 Active hydrALAZINE HCl 25 MG Oral Tablet (Apresoline)Indicati ons:HTN, goal below 140/90 Take 1 Tablet [...] treatment days. 150 Tablet 1 08/08/2023 Active Sulfamethoxazole-Tri methoprim 800-160 MG Oral Tablet (Bactrim DS)Indications:Dysur ia Take 1 Tablet by mouth in the morning and 1 Tablet before bedtime. Do all this for 7 days. Until gone. 14 Tablet 0 08/24/2023 08/31/2023 Active Hospital, Clinic, or Other Facility Administered [...] 100 mgIndications:Eosinophi lic asthma 100 mg SC [id number] 05/22/2023 04/22/2024 Active documented as of this encounter (statuses as of 08/30/2023) Active Problems Problem Noted Date Diagnosed Date Mild aortic valve stenosis 09/27/2022 Severe obesity with body mas s index (BMI) of 35.0 to 39.9 with serious comorbidity 09/06/2022 Wheeze 06/28/2021 CIDP (chronic inflammatory demyelinating polyneu [...] as of this encounter (statuses as of 08/30/2023) Resolved Problems Problem Noted Date Diagnosed Date Resolved Date Wedge compression fracture o f unspecified lumbar vertebra, initial encounter for closed fracture 09/06/2022 09/06/2022 Compression of lumbar vertebra 11/18/2020 01/20/2021 Asthma, moderate persistent 08/29/2011 10/16/2011 Asthma exacerbation 07/17/2011 05/13/20 12 documented as of this encounter (statuses as of 08/30/2023) Immunizations Name Administration Dates Next Due COVID-19 [...] on file documented as of this encounter Last Filed Vital Signs Vital Sign Reading Time Taken Comments Blood Pressure 116/75 08/30/2023 12:24 PM EST Pulse 83 08/30/2023 12:24 PM EST Temperature 36.3 C (97.4 F) 08/30/2023 12:[address] Respiratory Rate 16 08/30/2023 12:24 PM EST Oxygen Saturation 95% 08/30/2023 12:24 PM EST Inhaled Oxygen Concentration - - Weight - - Height - - Body Mass Index - - documented in this encounter Nursing Notes * Kayla Ty, HAMILTON - 08/30/2023 2:45 PM EST Pt completed treatment without issues. IV removed. Goals: Pt will remain free from injury. Possible barriers to meeting goals: pt is a high fall risk Stability of the patient: Moderately stable - low risk of patient condition declining or worsening Summary regarding today's goals: Met: Pt remained free from injury during treatment today. Discharged in stable condition. AB assisted. * Kayla Ty RN - 08/30/2023 12:25 PM EST Chair 9, IVIG. Pt has no new symptoms/concerns to report since treatment yesterday. IV assessed forpatency; NSS infusing. Safety and Risk for Injury Patient will remain free from injury. Ensure appropriate safety devices are available. Provide and maintain safe environment. documented in this encounter Plan of Treatment Upcoming Encounters Date Type Department Care Team (Late st Contact Info) Description 08/30/2023 3:20 PM EST Office Visit [address] [place] [address] Shahida Aviles PA-C [address] [place] [address] [facility] [place] [address] Arrived 09/12/2023 1:00 PM EDT Nurse Only Pulmonary Medicine, [facility] [address] [facility] [place] [address] Gw, Nurse Pulmonary [address] [facility] [place] [address] 09/24/2023 1:30 PM EDT Hem/Onc Treatment Hematology/Oncology Treatment, [address] [phone] [place], Chair 1 Hem On[address] [place] [address] 09/25/2023 1:00 PM EDT Hem/Onc Treatment Hematology/Oncology Treatment, [address] [place] [phone] [place], Chair 10 Hem Onc [facility] [address] [facility] [place] [address] 09/26/2023 1:00 PM EDT Hem/Onc Treatment Hematology/Oncology Treatment, [place] [address] [facility], [place] [phone] [place], Chair 3 Hem Onc [facility] [address] [facility] [place] [address] 09/27/2023 11:30 AM EDT Hem/Onc Treatment Hematology/Oncology Treatment, [place] [address] [facility] [place] [phone] 10/19/2023 11:15 AM EDT Office Visit Otol[facility]ology [facility] [place] [address] Martita Gaston MD [address] [place] [address] 11/14/2023 3:00 PM EDT Office Visit Family Medicine [address] [phone] Ruel Fajardo MD [address] [place] [address] [place] [address] 11/20/2023 1:30 PM EDT Office Visit Allergy/Immunology [facility] [place] [address] [facility] [place] [address] Adriel Montalvo MD [address] [facility] [place] [address] 07/25/2024 1:40 PM EST Office Visit Neurology [facility] [place] [address] [facility] [place] [address] John Dodge, [address] [facility] [place] [address] Scheduled Procedures Name Priority Associated Diagnoses Date/Ti [...] Depression Screening 05/11/2024 05/11/2023 GFR 08/22/2024 08/23/2023, 0310/2022, 02/20/2022, Additional history exists Albumin/Creatinine Ratio 09/06/2025 023, 02/20/2022, 08/07/2019 Diabetes Screening 08/22/2026 08/23/2023, 0 09/06/2022, 02/20/2022, Additional history exists Lipid Panel 09/07/2027 09/06/2022, 0802/2022, 08/07/2019, Additional history exists COLONOSCOPY-EVERY 5 YRS AGES 18-100 11/22/2027 11/21/2022, 11/21/2022, 04/03/2016, Additional history exists AAA Screening Completed 08/11/2019 VITAMIN D LEVEL ONCE IN A LIFETIME-USE SMARTSET# 39179 Completed 11/18/2020 Influenza Vaccine (FLU shot) Completed , 05/15/2022, 06/09/2021, Additional history exists GARDASIL-HPV IMMUNIZATION SERIES Aged Out No longer eligible based on patient's age to complete this topic MENINGOCOCCAL (MENACTRA/MENVEO) Aged Out No longer eligible based on patient's age to complete this topic documented as of this encounter Medical Devices Not on filedocumented as of this encounter Visit Diagnoses Diagnosis CIDP (chronic inflammatory demyelinating polyneuropathy) (HCC)- Primary Chronic inflammatory demyelinating polyneuritis documented in this encounter Administered Medications Active Administered Medications - up to 3 most recent administrations Medication Order MAR Action Action Date Dose Rate Site diphenhydrAMINE (Benadryl) inj 50 mg 50 mg, IV Push, ONCE PRN Other, Hypersensitivity Reaction, Starting on Allison 08/30/23 at 1149, Until Sun08/31/23 at 1148, For 24 hours EPINEPHrine 1 MG/ML inj 0.3 mg 0.3 mg, Intramuscular, ONCE PRN Other, Hypersensitivity Reaction or Anaphylaxis, Starting on Allison 08/30/23 at 1149, Until Sun08/31/23 at 1148, For 24 hours hEParin 100 UNIT/ML Lock Flush inj 500 Units 500 Units (5 mL), IV Lock, PRN Other, IV Flush, Starting on Allison 08/30/23 at 1149, Until Sun08/31/23 at 1148, For 24 hours, Do not flush if lock, PICC, or central line not in place; IV infusing or unable to flush. Hydrocortisone Sod Suc (PF) (Solu-Cortef) inj 100 mg 100 mg, IV Push, ONCE PRN Other, Hypersensitivity Reaction, Starting on Sun08/30/23 at 1149, Until Sun08/31/23 at 1148, For 24 hours NSS infusion 500 mL, Intravenous, at 50 mL/hr, CONTINUOUS, Starting on Allison 08/30/23 at 1300, Until Sun08/30/23 at 2259 Start Infusion 08/30/2023 11:53 AM EST 500 mL 50 mL/hr sodium chloride 0.9 % flush central line 10 mL 10 mL, IV Push, PRN Other, IV Flush, Starting on Sun08/30/23 at 1149, Until Sun08/31/23 at 1148, For 24 hours, Do not flush if lock, PICC, or central line not in place; IV infusing or unable to flush. Inactive Administered Medications - up to 3 most recent administrations Medication Order MAR Action Action Date Dose Rate Site Acetaminophen (Tylenol) tab 650 mg 650 mg, Oral, ONCE, On Sun08/30/23 at 1300, For 1 dose, Maximum of 4 grams (4000 mg) per day. Given 08/30/2023 12:04 PM EST 650 mg diphenhydrAMINE (Benadryl) cap 25 mg 25 mg, Oral, ONCE, On Sun08/30/23 at 1300, For 1 dose Given 08/30/2023 12:04 PM EST 25 mg Immune Globulin Human-IVIG 10% (Privigen) IV 40 g 40 g, IV Piggyback, ONCE, 1 dose, On Sun08/30/23 at 1330, Total dose = 45 gm Dispensed as 1 x 5 gram bottle and 1 x 40 gram bottle Vial 2 of 2 All subsequent vials will start at the ending rate of the previous vial PRIVIGEN infusion instructions Infusion Rate VTBI 0.005 mL/kg/min = 26 mL/hour for 15 minutes 7 mL 0.01 mL/kg/min = 53 mL/hour for 15 minutes 13 mL 0.02 mL/kg/min = 106 mL/hour for 15 minutes 26 mL 0.04 mL/kg/min = 212 mL/hour for 15 minutes 53 mL 0.08 mL/kg/min = 423 mL/hour Use this rate until finished 351 mL Infusion duration = 1.8 hours Rate Change 08/30/2023 1:20 PM EST 423 mL/hr Start Infusion 08/30/2023 1:05 PM EST 40 g 212 mL/hr Immune Globulin Human-IVIG 10% (Privigen) IV 5 g 5 g, IV Piggyback, ONCE, 1 dose, On Sun08/30/23 at 1300, Total dose = 45 gm Dispensed as 1 x 5 gram bottle and 1 x 40 gram bottle Vial 1 of 2 All subsequent vials will start at the ending rate of the previous vial PRIVIGEN infusion instructions Infusion Rate VTBI 0.005 mL/kg/min = 26 mL/hour for 15 minutes 7 mL 0.01 mL/kg/min = 53 mL/hour for 15 minutes 13 mL 0.02 mL/kg/min = 106 mL/hour for 15 minutes 26 mL 0.04 mL/kg/min = 212 mL/hour for 15 minutes 53 mL 0.08 mL/kg/min = 423 mL/hour Use this rate until finished 351 mL Infusion duration = 1.8 hours Rate Change 08/30/2023 12:50 PM EST 106 mL/hr Rate Change 08/30/2023 12:35 PM EST 53 mL/hr Start Infusion 08/30/2023 12:20 PM EST 5 g 26 mL/hr documented in this encounter Care Teams [employer] Relationship Specialty Start Date End Date Ruel Fajardo MD [address] [place] [address] [place] [address] PCP - General Family Medicine 10/17/19 documented as of this encounter
--- OUTSIDE RECORDS SUMMARY | 2023-09-12 10:38 | External Medical Summary | Summary of Care ---
Author Name Unknown Organization [facility] Address [address] [facility] [place] [address] Phone [phone] Care Team Providers Care Shell Coremaker Name Role Phone Ruel Fajardo MD Primary Care Provide r Reason for Visit * Reason Comments IV Therapy Privigen. * Episode Based Medications (Routine) - Authorized Specialty Diagnoses / Procedures Referred By Contac t Referred To Contact Diagnoses CIDP (chronic inflammatory demyelinating polyneuropathy) ([facility]) Procedures DC INJ IVIG PRIVIGEN 500 MG John Dodge, DO [address] [place] [address] Anc Hem/Onc Joesph Harmon DEPT CLOSED - 05/08/23 [address] [place] [phone] Referral ID Status Reason Start Date Expiration Date V isits Requested Visits Authorized [id number] Authorized 03/16/2023 03/16/2024 [id number] Encounter Details Date Type Department Care Team (Latest Contact Info) Description 08/29/2023 11:00 AM EST Hem/Onc Treatment Hematology/Oncolog y Treatment, [facility] [address] [place] [phone] [place], Chair 9 Hem Onc Scenery [address] [place] [id number] CIDP (chronic inflammatory demyelinating polyneuropathy) ([facility])* Allergies Active Allergy Reactions Criticality Noted Date Comments Amoxicillin Rash 07/17/2011 documented as of this encounter (statuses as of 08/29/2023) Medications Medication Sig Dispensed Refills Start Date [...] Tablet (vitamin B-2)Indications:CIDP (chronic inflammatory demyelinating polyneuropathy) ([facility]) Take by mouth 4 Tablets in the [...] Capsule (Neurontin)Indicatio ns:CIDP (chronic inflammatory demyelinating polyneuropathy) ([facility]) 3 tabs at bedtime 90 Capsule 5 [...] Respimat 2.5 MCG/ACT Inhalation Aerosol Solution (Tiotropium [place] Monohydrate)Indicati ons:Severe persistent asthma without complication Inhale [...] legs,Numbness and tingling of foot,Lumbar compression fracture ([facility]) TAKE ONE TABLET BY MOUTH TWICE DAILY [...] 100 mgIndications:Eosinophi lic asthma 100 mg SC [id number] 05/22/2023 04/22/2024 Active documented as of this encounter (statuses as of 08/29/2023) Active Problems Problem Noted Date Diagnosed Date [...] as of this encounter (statuses as of 08/29/2023) Resolved Problems Problem Noted Date Diagnosed Date Resolved Date Wedge compression fracture o f unspecified lumbar vertebra, initial encounter for closed fracture 09/06/2022 09/06/2022 Compression of lumbar vertebra 11/18/2020 01/20/2021 Asthma, moderate persistent 08/29/2011 10/16/2011 Asthma exacerbation 07/17/2011 05/13/20 12 documented as of this encounter (statuses as of 08/29/2023) Immunizations Name Administration Dates Next Due COVID-19 [...] Sign Reading Time Taken Comments Blood Pressure 122/78 08/29/2023 11:05 AM EST Pulse 92 08/29/2023 11:05 AM EST Temperature 36.6 C (97.9 F) 08/29/2023 11:[address] Respiratory Rate 18 08/29/2023 11:05 AM EST Oxygen Saturation 92% 08/29/2023 11:05 AM EST Inhaled Oxygen Concentration - - Weight - - Height - - Body Mass Index - - documented in this encounter Nursing Notes * Araceli Luong RN - 08/29/2023 2:00 PM EST Goals: Patient will remain free from injury. Possible barriers to meeting goals: Fall risk d/t ambulation with IV pole. Stability of the patient: Moderately stable - low risk of patient condition declining or worsening Summary regarding today's goals: Met: Patient remained free of injury. Patient kept IV in place for treatment tomorrow. IV was flushed, locked, and capped. Patient tolerated infusion well. Discharged in stable condition. * Araceli Luong RN - 08/29/2023 11:36 AM EST Chair 6. Patient arrived for privigen with no acute complaints. PIV left in flushes easily. Safety and Risk for Injury Patient will remain free from injury. Ensure appropriate safety devices are available. Provide and maintain safe environment. documented in this encounter Plan of Treatment Upcoming Encounters Date Type Department Care Team (Late st Contact Info) Description 08/30/2023 11:45 AM EST Hem/Onc Treatment Hematology[address] [phone] [place], Chair 2 Hem On[address] [place] [address] 08/30/2023 3:20 PM EST Office Visit Family [facility] [address] [place] [address] Shahida Aviles PA-C 200 [facility] [place] [address] 09/12/2023 1:00 PM EDT Nurse Only Pulmonary Medicine, [facility] [address] [facility] [place] [address] Gw, Nurse Pulmonary 132 [facility] [place] [address] 09/24/2023 1:30 PM EDT Hem/Onc Treatment Hematology/Oncology Treatment, [address], [place] [phone] [place], Chair 1 Hem Onc Scenery 200 [facility] [place], [place] [address] 09/25/2023 1:00 PM EDT Hem/Onc Treatment Hematology/Oncology Treatment, [place] 200 [place] [phone] [place], Chair 10 Hem Onc Scenery 200 [facility] [place], [place] [address] 09/26/2023 1:00 PM EDT Hem/Onc Treatment Hematology/Oncology Treatment, [place] 200 [facility], [place] [phone] [place], Chair 3 Hem Onc Scenery 200 [facility] [place] [address] 09/27/2023 11:30 AM EDT Hem/Onc Treatment Hematology/Oncology Treatment, [address], [place] [phone] 10/19/2023 11:15 AM EDT Office Visit Otolaryngology [facility] 132 [facility] [place] [address] Martita Gaston MD [address] [place] [address] 11/14/2023 3:00 PM EDT Office Visit Family Medicine [address] [place] [phone] Ruel Fajardo MD [address] [place] [address] [place] [address] 11/20/2023 1:30 PM EDT Office Visit Allergy/Immunology [facility] 200 [facility] [place] [address] Adriel Montalvo MD 200 [facility] [place] [address] 07/25/2024 1:40 PM EST Office Visit Neurology [facility] [place] 200 [facility] [place] [address] John Dodge, 200 [facility] [place] [address] Scheduled Procedures Name Priority Associated Diagnoses Date/Ti [...] Additional history exists Lipid Panel 09/07/2027 09/06/2022, 01/24, 08/07/2019, Additional history exists COLONOSCOPY-EVERY 5 YRS AGES 18-100 11/22/2027 11/21/2022, 11/21/2022, 04/03/2016, Additional history exists AAA Screening Completed 08/11/2019 VITAMIN D LEVEL ONCE IN A LIFETIME-USE SMARTSET# [id number] Completed 11/18/2020 Influenza Vaccine (FLU shot) Completed [...] Diagnoses Diagnosis CIDP (chronic inflammatory demyelinating polyneuropathy) ([facility])- Primary Chronic inflammatory demyelinating polyneuritis documented in this encounter Administered Medications Active Administered Medications - up to 3 most recent administrations Medication Order MAR Action Action Date Dose Rate Site diphenhydrAMINE (Benadryl) inj 50 mg 50 mg, IV Push, ONCE PRN Other, Hypersensitivity Reaction, Starting on Sun08/29/23 at 1106, Until Allison 08/30/23 at 1105, For 24 hours EPINEPHrine 1 MG/ML inj 0.3 mg 0.3 mg, Intramuscular, ONCE PRN Other, Hypersensitivity Reaction or Anaphylaxis, Starting on Sun08/29/23 at 1106, Until Allison 08/30/23 at 1105, For 24 hours hEParin 100 UNIT/ML Lock Flush inj 500 Units 500 Units (5 mL), IV Lock, PRN Other, IV Flush, Starting on Sun08/29/23 at 1106, Until Allison 08/30/23 at 1105, For 24 hours, Do not flush if lock, PICC, or central line not in place; IV infusing or unable to flush. Given 08/29/2023 1:21 PM EST 500 Units Hydrocortisone Sod Suc (PF) (Solu-Cortef) inj 100 mg 100 mg, IV Push, ONCE PRN Other, Hypersensitivity Reaction, Starting on Sun08/29/23 at 1106, Until Allison 08/30/23 at 1105, For 24 hours NSS infusion 500 mL, Intravenous, at 50 mL/hr, CONTINUOUS, Starting on Sun08/29/23 at 1215, Until Sun08/29/23 at 2214 Start Infusion 08/29/2023 11:12 AM EST 500 mL 50 mL/hr sodium chloride 0.9 % flush central line 10 mL 10 mL, IV Push, PRN Other, IV Flush, Starting on Sun08/29/23 at 1106, Until Allison 08/30/23 at 1105, For 24 hours, Do not flush if lock, PICC, or central line not in place; IV infusing or unable to flush. Given 08/29/2023 1:21 PM EST 10 mL Inactive Administered Medications - up to 3 most recent administrations Medication Order MAR Action Action Date Dose Rate Site Acetaminophen (Tylenol) tab 650 mg 650 mg, Oral, ONCE, On Sun08/29/23 at 1215, For 1 dose, Maximum of 4 grams (4000 mg) per day. Given 08/29/2023 11:12 AM EST 650 mg diphenhydrAMINE (Benadryl) cap 25 mg 25 mg, Oral, ONCE, On Sun08/29/23 at 1215, For 1 dose Given 08/29/2023 11:12 AM EST 25 mg Immune Globulin Human-IVIG 10% (Privigen) IV 40 g 40 g, IV Piggyback, ONCE, 1 dose, On Sun08/29/23 at 1245, Total dose = 45 gm Dispensed as [...] Infusion duration = 1.8 hours Rate Change 08/29/2023 12:45 PM EST 423 mL/hr Rate Change 08/29/2023 12:30 PM EST 212 mL/hr Start Infusion 08/29/2023 12:15 PM EST 40 g 106 mL/h r Immune Globulin Human-IVIG 10% (Privigen) IV 5 g 5 g, IV Piggyback, ONCE, 1 dose, On Sun08/29/23 at 1215, Total dose = 45 gm Dispensed as [...] Infusion duration = 1.8 hours Rate Change 08/29/2023 12:14 PM EST 106 mL/hr Rate Change 08/29/2023 11:45 AM EST 53 mL/hr Start Infusion 08/29/2023 11:28 AM EST 5 g 26 mL/hr documented in this encounter Care Teams Shell Coremaker Relationship Specialty Start Date End Date Ruel Fajardo MD [address] [place] [address] [place] [address] PCP - General Family Medicine 10/17/19 documented as of this encounter
--- OUTSIDE RECORDS SUMMARY | 2023-09-12 10:38 | External Medical Summary | Summary of Care ---
Author Name Unknown Organization [facility] Address [address] [facility] [place] [address] Phone [phone] Care Team Providers Care Tubular Riveter Name Role Phone Ruel Fajardo MD Primary Care Provide r Reason for Visit * Reason Onset Date Comments Advice 08/29/2023 Encounter Details Date Type Department Care Team (Late st Contact Info) Description 08/29/2023 Telephone Family Medicine [address] [place] [phone] Ruel Fajardo MD [address] [place] [address] [place] [phone] Advice Allergies Active Allergy Reactions Criticality Noted Date [...] Tablet (vitamin B-2)Indications:CIDP (chronic inflammatory demyelinating polyneuropathy) ([facility]) Take by mouth 4 Tablets [...] Capsule (Neurontin)Indicatio ns:CIDP (chronic inflammatory demyelinating polyneuropathy) ([facility]) 3 tabs at bedtime 90 [...] Respimat 2.5 MCG/ACT Inhalation Aerosol Solution (Tiotropium [place] Monohydrate)Indicati ons:Severe persistent asthma without complication Inhale [...] 100 mgIndications:Eosinophi lic asthma 100 mg SC [id number] 05/22/2023 04/22/2024 Active documented as of this [...] encounter Miscellaneous Notes * Telephone Encounter - Kecia Hutchinson LPN - 08/29/2023 2:48 PM EST I tried to call pt- we do not have any openings sooner than his appt tomorrow. He should keep the appointment. * Telephone Encounter - Miya Gamino OSA - 08/29/2023 8:08 AM EST No Appointments Available Patient declined appointments?: Yes What Visit Type is needed? Acute If Acute Visit Type is needed, were surrounding clinics offered to patient (Yes/No)? Yes Was patient offered appointments with other available providers (Yes/No)? Yes See Call Details? (Yes or No): Yes documented in this encounter Plan of Treatment Upcoming Encounters Date Type Department Care Team (Late st Contact Info) Description 08/30/2023 11:45 AM EST Hem/Onc Treatment Hematology/Oncology Treatment, [place] [address] [place] [phone] [place], Chair 2 Hem Onc Scenery [address] [place] [address] 08/30/2023 3:20 PM EST Office Visit [facility] [place] 200 [facility] [place], [place] [address] Shahida Aviles PA-C [address] [employer], [place] [address] 09/12/2023 1:00 PM EDT Nurse Only Pulmonary Medicine, [facility] 132 [facility] [place] [address] Gw, Nurse Pulmonary 132 [facility] [place] [address] 09/24/2023 1:30 PM EDT Hem/Onc Treatment Hematology/Oncology Treatment, [place] 200 [facility], [place] [phone] [place], Chair 1 Hem Onc [facility] [address] [place] [address] [place] [address] 09/25/2023 1:00 PM EDT Hem/Onc Treatment Hematology/Oncology Treatment, [address], [place] [phone] [place], Chair 10 Hem Onc [facility] 200 [facility] [place], [place] [address] 09/26/2023 1:00 PM EDT Hem/Onc Treatment Hematology/Oncology Treatment, [address], [place] [phone] [place], Chair 3 Hem Onc Scenery 200 [facility] [place], [place] [address] 09/27/2023 11:30 AM EDT Hem/Onc Treatment Hematology/Oncology Treatment, [address], [place] [phone] 10/19/2023 11:15 AM EDT Office Visit Otolaryngology [facility] 132 [facility] [place] [address] Martita Gaston MD [address] [place] [address] 11/14/2023 3:00 PM EDT Office Visit Family Medicine [address] [place] [phone] Ruel Fajardo MD [address] [place] [address] [place] [address] 11/20/2023 1:30 PM EDT Office Visit Allergy/Immunology [facility] [address] [place] [address] Adriel Montalvo MD [address] [place] [address] 07/25/2024 1:40 PM EST Office Visit Neurology [facility] [address] [place] [address] John Dodge, [address] [place] [address] Scheduled Procedures Name Priority Associated Diagnoses Date/Ti [...] D LEVEL ONCE IN A LIFETIME-USE SMARTSET# [id number] Completed 11/18/2020 Influenza Vaccine (FLU shot) Completed , 05/15/2022, 06/09/2021, Additional history exists GARDASIL-HPV IMMUNIZATION SERIES Aged Out No longer eligible based on patient's age to complete this topic MENINGOCOCCAL (MENACTRA/MENVEO) Aged Out No longer eligible based on patient's age to complete this topic documented as of this encounter Medical Devices Not on filedocumented as of this encounter Care Teams Tubular Riveter Relationship Specialty Start Date End Date Ruel Fajardo MD [address] [place] [address] [place] [address] PCP - General Family Medicine 10/17/19 documented as of this encounter
--- OUTSIDE RECORDS SUMMARY | 2023-09-12 10:38 | External Medical Summary | Summary of Care ---
Author Name Unknown Organization [facility] Address [address] [facility] [place] [address] Phone [phone] Care Team Providers Care Leather Sponger Name Role Phone Ruel Fajardo MD Primary Care Provide r Reason for Visit * Reason Onset Date Comments Medication Refill 09/04/2023 Encounter Details Date Type Department Care Team (Late st Contact Info) Description 09/04/2023 Refill Family Medicine [address] [phone] Ruel Fajardo MD [address] [place] [address] [place] [address] Severe persistent asthma without complication; Weakness of both legs; Numbness and tingling of foot; Lumbar compression fracture (HCC) Allergies Active Allergy Reactions Criticality Noted Date Comments Amoxicillin Rash 07/17/2011 documented as of this encounter (statuses as of 09/06/2023) Medications Medication Sig Dispensed Refills Start Date End Date Status IBUPROFEN 200 MG PO CAPS None Entered 0 Active METAXALONE 800 MG PO TABS take one tab by mouth three times a day as needed 0 05/15/2011 Active Pseudoephedrine-gua iFENesin ER 120-1200 MG Tablet Extended Release 12 [...] Active Nucala 100 MG Subcutaneous Solution Reconstituted (Mepolizumab)Indica tions:Severe persistent asthma without complication,Allerg ic eosinophilia Inject 1 Each under the skin every 4 weeks. 1 Each 11 12/16/2020 Active DULoxetine HCl 60 MG Oral Capsule Delayed Release Particles (Cymbalta)Indicatio ns:Low back pain without sciatica, unspecified back pain laterality, unspecified chronicity Take 1 Cap by mouth daily. Do not cut, crush or chew 30 Cap 2 01/20/2021 Active Meloxicam 7.5 MG Oral Tablet Take 1 Tab by mouth daily. 30 Tab 5 02/17/2021 Active Vitamin B-2 100 MG Oral Tablet (vitamin B-2)Indications:CONSUELO P (chronic inflammatory demyelinating polyneuropathy) ([facility]) Take by mouth 4 Tablets in the morning. 120 Tablet 3 12/22/2021 Active Atorvastatin Calcium 10 MG Oral Tablet (Lipitor)Indication s:Mixed hyperlipidemia Take by mouth 1 Tablet in the morning. 30 Tablet 2 02/23/2022 Active Gabapentin 100 MG Oral Capsule (Neurontin)Indicati ons:CIDP (chronic inflammatory demyelinating polyneuropathy) ([facility]) 3 tabs at bedtime 90 Capsule 5 05/22/2022 Active Albuterol Sulfate (2.5 MG/3ML) 0.083% Inhalation Nebulization Solution (Proventil)Indicati ons:Wheeze INHALE ONE VIAL VIA NEBULIZER EVERY 4 HOURS NEEDED FOR WHEEZING OR SHORTNESS OF BREATH 180 mL 1 10/14/2022 Active Losartan Potassium 25 MG Oral Tablet (Cozaar)Indications :HTN, goal below 140/90 Take 2 Tablets by [...] Respimat 2.5 MCG/ACT Inhalation Aerosol Solution (Tiotropium [place] Monohydrate)Indicat ions:Severe persistent asthma without complication Inhale 2 Puffs by mouth in the morning. 12 g 2 02/07/2023 Active Montelukast Sodium 10 MG Oral Tablet (Singulair)Indicati ons:Asthma, severe persistent Take 1 Tablet by mouth in the morning. 90 Tablet 3 02/19/2023 Active hydroCHLOROthiazide 12.5 MG Oral Capsule (Hydrodiuril)Indica tions:HTN, goal below 140/90 Take 3 Capsules by mouth in the morning. - on days of IVIG infusion. 60 Capsule 1 05/08/2023 Active Albuterol Sulfate HFA 108 (90 Base) MCG/ACT Inhalation Aerosol SolutionIndications :Severe persistent asthma without complication INHALE 2 PUFFS BY MOUTH EVERY 4 HOURS NEEDED FOR WHEEZING 18 g 5 06/20/2023 Active predniSONE 10 MG Oral Tablet (Deltasone) 1-3 tabs daily as directed 90 Tablet 0 07/16/2023 Active Azelastine HCl 137 MCG/SPRAY Nasal Solution Administer 2 Sprays into nostril in the morning and 2 Sprays before bedtime. 30 mL 11 07/23/2023 Active hydroCHLOROthiazide 25 MG Oral Tablet (Hydrodiuril)Indica tions:HTN, goal below 140/90 Take 1 Tablet by mouth in the morning. 90 Tablet 1 07/24/2023 Active hydrALAZINE HCl 25 MG Oral Tablet (Apresoline)Indicat ions:HTN, goal below 140/90 Take 1 Tablet [...] treatment days. 150 Tablet 1 08/08/2023 Active Fluticasone-Salmete rol 500-50 MCG/ACT Inhalation Aerosol Powder Breath Activated (Wixela Inhub)Indications:S evere persistent asthma without complication Inhale 1 Puff by mouth in the morning and 1 Puff before bedtime. 180 Each 2 09/06/2023 Active Cyclobenzaprine HCl 5 MG Oral Tablet (Flexeril)Indicatio ns:Weakness of both legs,Numbness and tingling of foot,Lumbar compression fracture (HCC) TAKE ONE TABLET BY MOUTH TWICE DAILY NEEDED FOR MUSCLE SPASM 30 Tablet 1 09/06/2023 Active Wixela Inhub 500-50 MCG/ACT Inhalation Aerosol Powder Breath Activated (Fluticasone-Salmet tami)Indications:Se melissa persistent asthma without complication INHALE ONE PUFF BY MOUTH TWICE DAILY 180 Each 3 02/01/2022 4 Discontinue d(Refill) Cyclobenzaprine HCl 5 MG Oral Tablet (Flexeril)Indicatio ns:Weakness of both legs,Numbness and tingling of foot,Lumbar compression fracture (HCC) TAKE ONE TABLET BY MOUTH TWICE DAILY NEEDED FOR MUSCLE SPASM 30 Tablet 1 07/13/2023 4 Discontinue d(Refill) Hospital, Clinic, or Other Facility Administered Medication [...] 100 mgIndications:Eosinophi lic asthma 100 mg SC [id number] 05/22/2023 04/22/2024 Active documented as of this encounter (statuses as of 09/06/2023) Active Problems Problem Noted Date Diagnosed Date [...] as of this encounter (statuses as of 09/06/2023) Resolved Problems Problem Noted Date Diagnosed Date [...] as of this encounter (statuses as of 09/06/2023) Immunizations Name Administration Dates Next Due COVID-19 [...] encounter Miscellaneous Notes * Telephone Encounter - Ruel Fajardo MD - 09/06/2023 8:10 AM EDT Signed Prescriptions: Disp Refills Fluticasone-Salmeterol 500-50 MCG/ACT Inha*180 Ea*2 Sig: Inhale 1 Puff by mouth in the morning and 1 Puff before bedtime. Authorizing Provider: RUEL FAJARDO Ordering User: SCOTT GREEN Cyclobenzaprine HCl 5 MG Oral Tablet (Flex*30 Tab*1 Sig: TAKE ONE TABLET BY MOUTH TWICE DAILY NEEDED FOR MUSCLE SPAS M Authorizing Provider: RUEL FAJARDO * [facility]23 7:50 AM EDTPending Prescriptions: Disp Refills Cyclobenzaprine HCl 5 MG Oral Tablet (Flex*30 Tab*1 Sig: TAKE ONE TABLET BY MOUTH TWICE DAILY NEEDED FOR MUSCLE SPASM Signed Prescriptions: Disp Refills Fluticasone-Salmeterol 500-50 MCG/ACT Inha*180 Ea*2 Sig: Inhale 1 Puff by mouth in the morning and 1 Puff before bedtime. Authorizing Pro vider: RUEL FAJARDO Ordering User: SCOTT GREEN * Telephone Encounter - Scott Green [facility] - 09/06/2023 7:49 AM EDT [facility] is currently not authorized to approve refills for the pended medication(s) per refill protocol. Please approve if appropriate. Pending Prescriptions: Disp Refills Cyclobenzaprine HCl 5 MG Oral Tablet (Fle*30 Tab*1 Sig: TAKE ONE TABLET BY MOUTH TWICE DAILY NEEDED FOR MUSCLE SPASM Signed Prescriptions: Disp Refills Fluticasone-Salmeterol 500-50 MCG/ACT Inha*180 Ea*2 Sig: Inhale 1 Puff by mouth in the morning and 1 Puff before bedtime. Authorizing Provider: RUEL FAJARDO Ordering User: SCOTT GREEN Last Visit: 05/11/2023 (in office), 04/28/2021 (telemedicine) Next Visit: 11/14/2023 If no future appointments scheduled, and last appointment is greater than a year ago, please schedule patient for a follow-up appointment Last date the medication was ordered: 07/13/23 Pharmacy: [facility], [address] [place] Is this request for a controlled substance? No Urine Drug Screen:No results found. However, due to the size of the patient record, not all encounters were searched. Please check Results Review for a complete set of results. Patient Phone Numbers Labs: Lab Results Component Value Date/Time CREAT 0.9 08/23/2023 02:22 PM CREAT 1.0 05/12/2020 02:25 PM POTASSIUM 4.0 08/23/2023 02:22 PM POTASSIUM 4.1 05/12/2020 02:25 PM TSH 1.52 07/01/2020 02:49 PM LDLCALC 156 (H) 09/06/2022 03:40 PM LDLCALC 158 (H) 08/07/2019 02:56 PM LDLDIRECT NOT APPLICABLE 08/07/2019 02:56 PM ALT 28 08/23/2023 02:22 PM ALT 43 10/17/2019 12:47 PM HGBA1C 4.9 02/20/2022 12:35 PM Thank you, Scott Green, PharmD Clinical Pharmacist [facility] ([facility]) (formerly Telepharmacy) [phone] 09/06/2023, 7:50 AM documented in this encounter Plan of Treatment Upcoming Encounters Date Type Department Care Team (Late st Contact Info) Description 09/12/2023 1:00 PM EDT Nurse Only Pulmonary Medicine, [facility] [address] [facility] [place] [address] Gw, Nurse Pulmonary [address] [facility] [place] [address] 09/24/2023 1:30 PM EDT Hem/Onc Treatment Hematology/Oncology Treatment, [address] [phone] [place], Chair 1 Hem Onc [address] [address] 09/25/2023 1:00 PM EDT Hem/Onc Treatment Hematology/Oncology Treatment, [address] [phone] [place], Chair 10 Hem On[address] [place] [address] 09/26/2023 1:00 PM EDT Hem/Onc Treatment Hematology/Oncology Treatment, [place] [address] [facility], [place] [phone] [place], Chair 3 Hem Onc [address] [place] [address] 09/27/2023 11:30 AM EDT Hem/Onc Treatment Hematology/Oncology Treatment, [address] [phone] 10/19/2023 11:15 AM EDT Office Visit Otolaryngology [facility] [address] [facility] [place] [address] Martita Gaston MD [address] [facility] [place] [address] 11/14/2023 3:00 PM EDT Office Visit Family Medicine [address] [place] [phone] Ruel Fajardo MD [address] [place] [address] [place] [address] 11/20/2023 1:30 PM EDT Office Visit Allergy/Immunology [facility] [place] [address] [facility] [place] [address] Adriel Montalvo MD [address] [facility] [place] [address] 07/25/2024 1:40 PM EST Office Visit Neurology [facility] [place] [address] [facility] [place] [address] John Dodge DO [address] [facility] [place] [address] Scheduled Procedures Name Priority Associated Diagnoses Date/Ti [...] Additional history exists Lipid Panel 09/07/2027 09/06/2022, 08/2 02/2022, 08/07/2019, Additional history exists COLONOSCOPY-EVERY 5 YRS AGES 18-100 11/22/2027 11/21/2022, 11/21/2022, 04/03/2016, Additional history exists AAA Screening Completed 08/11/2019 VITAMIN D LEVEL ONCE IN A LIFETIME-USE SMARTSET# 19833 Completed 11/18/2020 Influenza Vaccine (FLU shot) Completed , 05/15/2022, 06/09/2021, Additional history exists GARDASIL-HPV IMMUNIZATION SERIES Aged Out No longer eligible based on patient's age to complete this topic MENINGOCOCCAL (MENACTRA/MENVEO) Aged Out No longer eligible based on patient's age to complete this topic documented as of this encounter Medical Devices Not on filedocumented as of this encounter Visit Diagnoses Diagnosis Severe persistent asthma without complication Weakness of both legs Other musculoskeletal symptoms referable to limbs Numbness and tingling of foot Disturbance of skin sensation Lumbar compression fracture (HCC) Closed fracture of lumbar vertebra without mention of spinal cord injury documented in this encounter Care Teams Leather Sponger Relationship Specialty Start Date End Date Ruel Fajardo MD [address] [place] [address] [place] [phone] PCP - General Family Medicine 10/17/19 documented as of this encounter
--- OUTSIDE RECORDS SUMMARY | 2023-09-12 10:38 | External Medical Summary | Summary of Care ---
Author Name Unknown Organization [facility] Address [address] [facility] [place] [address] Phone [phone] Care Team Providers Care Radio Frequency Design Engineer Name Role Phone Ruel Fajardo MD Primary Care Provide r Reason for Visit * Reason Comments eRx-Medication Refill Encounter Details Date Type Department Care Team (Late st Contact Info) Description 09/07/2023 Refill Allergy/Immunology [facility] [place] [address] [facility] [place] [address] Mihir Vidal MD [address] [facility] [place] [address] Allergies Active Allergy Reactions Criticality Noted Date Comments Amoxicillin Rash 07/17/2011 documented as of this encounter (statuses as of 09/10/2023) Medications Medication Sig Dispensed Refills Start Date End Date Status IBUPROFEN 200 MG PO CAPS None Entered 0 Active METAXALONE 800 MG PO TABS take one tab by mouth three times a day as needed 0 1 Active Pseudoephedrine-gua iFENesin ER 120-1200 MG Tablet [...] skin every 4 weeks. 1 Each 11 1 Active DULoxetine HCl 60 MG Oral Capsule Delayed Release Particles (Cymbalta)Indicatio ns:Low back pain without sciatica, unspecified back pain laterality, unspecified chronicity Take 1 Cap by mouth daily. Do not cut, crush or chew 30 Cap 2 1 Active Meloxicam 7.5 MG Oral Tablet Take 1 Tab by mouth daily. 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 120 Tablet 3 2 Active Atorvastatin Calcium 10 MG Oral Tablet (Lipitor)Indication s:Mixed hyperlipidemia Take by mouth 1 Tablet in the morning. 30 Tablet 2 2 Active Gabapentin 100 MG Oral Capsule (Neurontin)Indicati ons:CIDP (chronic inflammatory demyelinating polyneuropathy) ([facility]) 3 tabs at bedtime 90 Capsule 5 2 Active Albuterol Sulfate (2.5 MG/3ML) 0.083% Inhalation Nebulization Solution (Proventil)Indicati ons:Wheeze INHALE ONE VIAL VIA NEBULIZER EVERY 4 HOURS NEEDED FOR WHEEZING OR SHORTNESS OF BREATH 180 mL 1 3 Active Losartan Potassium 25 MG Oral Tablet (Cozaar)Indications :HTN, goal below 140/90 Take 2 Tablets by mouth in the morning. 180 Tablet 1 3 Active Fish Oil 1000 MG Oral Capsule Take 1 Capsule by mouth in the morning. 0 Active D3-1000 25 MCG (1000 UT) Oral Capsule (Cholecalciferol) Take 1 Capsule by mouth in the morning. 0 Active Mometasone Furoate 50 MCG/ACT Nasal Suspension inhale 2 SPRAYS INTO EACH NOSTRIL DAILY. 17 g 11 3 Active Spiriva Respimat 2.5 MCG/ACT Inhalation Aerosol Solution (Tiotropium [place] Monohydrate)Indicat ions:Severe persistent asthma without complication Inhale 2 Puffs by mouth in the morning. 12 g 2 3 Active Montelukast Sodium 10 MG Oral Tablet (Singulair)Indicati ons:Asthma, severe persistent Take 1 Tablet by mouth in the morning. 90 Tablet 3 3 Active hydroCHLOROthiazide 12.5 MG Oral Capsule (Hydrodiuril)Indica tions:HTN, goal below 140/90 Take 3 Capsules by mouth in the morning. - on days of IVIG infusion. 60 Capsule 1 3 Active Albuterol Sulfate HFA 108 (90 Base) MCG/ACT Inhalation Aerosol SolutionIndications :Severe persistent asthma without complication INHALE 2 PUFFS BY MOUTH EVERY 4 HOURS NEEDED FOR WHEEZING 18 g 5 3 Active Azelastine HCl 137 MCG/SPRAY Nasal Solution Administer 2 Sprays into nostril in the morning and 2 Sprays before bedtime. 30 mL 11 4 Active hydroCHLOROthiazide 25 MG Oral Tablet (Hydrodiuril)Indica tions:HTN, goal below 140/90 Take 1 Tablet by mouth in the morning. 90 Tablet 1 4 Active hydrALAZINE HCl 25 MG Oral Tablet (Apresoline)Indicat ions:HTN, goal below 140/90 Take 1 Tablet by mouth every 4 hours as needed for Hypertension. If Blood pressure above 160/100 60 Tablet 0 4 Active Metoprolol Succinate ER 25 MG Oral Tablet Extended Release 24 Hour (toPROL XL)Indications:HTN, goal below 140/90 Take 1 Tablet by mouth in the morning. And can take 4 tabs daily during IVIG treatment days. 150 Tablet 1 4 Active Fluticasone-Salmete rol 500-50 MCG/ACT Inhalation Aerosol Powder Breath Activated (Wixela Inhub)Indications:S evere persistent asthma without complication Inhale 1 Puff by mouth in the morning and 1 Puff before bedtime. 180 Each 2 4 Active Cyclobenzaprine HCl 5 MG Oral Tablet (Flexeril)Indicatio ns:Weakness of both legs,Numbness and tingling of foot,Lumbar compression fracture (HCC) TAKE ONE TABLET BY MOUTH TWICE DAILY NEEDED FOR MUSCLE SPASM 30 Tablet 1 4 Active Naproxen 500 MG Oral Tablet (Naprosyn)Indicatio ns:Swelling of right hand,Swelling of right wrist Take 1 Tablet by mouth 2 times a day with morning and evening meals. 40 Tablet 0 4 Active predniSONE 10 MG Oral Tablet (Deltasone) TAKE 1-3 TABLETS EVERY DAY DIRECTED 90 Tablet 0 4 Active predniSONE 10 MG Oral Tablet (Deltasone) 1-3 tabs daily as directed 90 Tablet 0 4 09/10/19 24 Discontinued Hospital, Clinic, or Other Facility Administered Medication [...] 100 mgIndications:Eosinophi lic asthma 100 mg SC [id number] 05/22/2023 04/22/2024 Active documented as of this encounter (statuses as of 09/10/2023) Active Problems Problem Noted Date Diagnosed Date [...] as of this encounter (statuses as of 09/10/2023) Resolved Problems Problem Noted Date Diagnosed Date [...] as of this encounter (statuses as of 09/10/2023) Immunizations Name Administration Dates Next Due COVID-19 [...] encounter Miscellaneous Notes * Telephone Encounter - Mihir Vidal MD - 09/10/2023 7:51 AM EDTSigned Prescriptions: Disp Refills predniSONE 10 MG Oral Tablet (Deltasone) 90 Tab*0 Sig: TAKE 1-3 TABLETS EVERY DAY DIRECTED Authorizing Provider: MIHIR VIDAL * Telephone Encounter - Liana Mccurdy LPN - 09/10/2023 7:33 AM EDT Pending Prescriptions: Disp Refills predniSONE 10 MG Oral Tablet [Pharmacy Med*90 Tab*0 Sig: TAKE 1-3 TABLETS EVERY DAY DIRECTED * Telephone Encounter - Liana Mccurdy LPN - 09/10/2023 7:32 AM EDT Pending Prescriptions: Disp Refills predniSONE 10 MG Oral Tablet (Deltasone) *90 Tab*0 Sig: TAKE 1-3 TABLETS EVERY DAY DIRECTED Last Visit: 11/14/2022 (in office), 06/07/2020 (telemedicine) Next Visit: 11/20/2023 Last date the medication was ordered: 07/16/23 Health Maintenance Topic Date Due DTaP,Tdap,and Td Vaccines (1 - Tdap) Never done Zoster Vaccines (1 of 2) Never done Pneumococcal Vaccine: 65+ Years (3 of 3 - PPSV23 or PCV20) 07/29/2019 Hepatitis B (2 of 2 - CpG 2-dose series) 11/01/2020 *BISPHONATE OR OTHER ACCEPTABLE MEDICATION NEEDED FOR OSTEOPOROSIS (REFER TO SMARTSET #0534) Never done COVID-19 Vaccine (3 - Moderna risk series) 07/08/2021 DXA Scan 07/29/2021 Depression Screening 05/11/2024 GFR 08/22/2024 Albumin/Creatinine Ratio 09/06/2025 Diabetes Screening 08/22/2026 Lipid Panel 09/07/2027 COLONOSCOPY-EVERY 5 YRS AGES 18-100 11/22/2027 VITAMIN D LEVEL ONCE IN A LIFETIME-USE SMARTSET# [id number] Completed Influenza Vaccine (FLU shot) Completed AAA Screening Completed MENINGOCOCCAL (MENACTRA/MENVEO) Aged Out GARDASIL-HPV IMMUNIZATION SERIES Aged Out Labs: Lab Results Component Value Date/Time CREATININE - [facility] 0.9 08/23/2023 02:22 PM CREATININE - [facility] 1.0 05/12/2020 02:25 PM CREATININE, RANDOM URINE - [facility] 220 09/06/2022 03:40 PM CREATININE, RANDOM URINE - [facility] 75 08/07/2019 02:56 PM CREATININE-OUTSIDE LAB 0.87 12/30/2018 12:00 AM Lab Results Component Value Date/Time POTASSIUM - [facility] 4.0 08/23/2023 02:22 PM POTASSIUM - [facility] 4.1 05/12/2020 02:25 PM Lab Results Component Value Date/Time TSH - [facility] 1.52 07/01/2020 02:49 PM Lab Results Component Value Date/Time LDL (CALCULATED)-OUTSIDE LAB 149 (A) 12/30/2018 12:00 AM LDL CHOLESTEROL (CALCULATED) - [facility] 156 (H) 09/06/2022 03:40 PM LDL CHOLESTEROL (CALCULATED) - [facility] 190 (H) 02/20/2022 12:35 PM LDL CHOLESTEROL (CALCULATED) - [facility] 158 (H) 08/07/2019 02:56 PM LDL CHOLESTEROL (DIRECT MEASURE) - [facility] NOT APPLICABLE 08/07/2019 02:56 PM Lab Results Component Value Date/Time ALT - [facility] 28 08/23/2023 02:22 PM ALT - [facility] 43 10/17/2019 12:47 PM ALTERNARIA IGE - [facility] <0.10 08/29/2011 10:55 AM Hemoglobin AIC Results: Lab Results Component Value Date/Time HEMOGLOBIN A1C - [facility] 4.9 02/20/2022 12:35 PM documented in this encounter Plan of Treatment Upcoming Encounters Date Type Department Care Team (Late st Contact Info) Description 09/12/2023 1:00 PM EDT Nurse Only Pulmonary Medicine, [facility] [address] [facility] [place] [address] Gw, Nurse Pulmonary [address] [facility] [place] [address] 09/24/2023 1:30 PM EDT Hem/Onc Treatment Hematology/Oncology Treatment, [address], [place] [phone] [place], Chair 1 Hem Onc [address] [address] 09/25/2023 1:00 PM EDT Hem/Onc Treatment Hematology/Oncology Treatment, [address] [phone] [place], Chair 10 Hem Onc [address] [address] 09/26/2023 1:00 PM EDT Hem/Onc Treatment Hematology/Oncology Treatment, [address] [phone] [place], Chair 3 Hem Onc [facility] [address] [facility] [place] [address] 09/27/2023 11:30 AM EDT Hem/Onc Treatment [facility]ematology/Oncology Treatment, [place] [facility] [phone] 10/19/2023 11:15 AM EDT Office Visit Otolaryngology [facility] [address] [place] [address] Martita Gaston MD [address] [place] [address] 11/14/2023 3:00 PM EDT Office Visit Family Medicine [address] [phone] Rule Fajardo MD [address] [place] [address] [place] [address] 11/20/2023 1:30 PM EDT Office Visit Allergy/Immunology [facility] [place] [address] [facility] [place] [address] Mihir Vidal MD [address] [facility] [place] [address] 07/25/2024 1:40 PM EST Office Visit Neurology [facility] [place] [address] [facility] [place] [address] John Dodge, [address] [facility] [place] [address] Scheduled Procedures Name Priority Associated Diagnoses Date/Ti [...] D LEVEL ONCE IN A LIFETIME-USE SMARTSET# [id number] Completed 11/18/2020 Influenza Vaccine (FLU shot) Completed , 05/15/2022, 06/09/2021, Additional history exists GARDASIL-HPV IMMUNIZATION SERIES Aged Out No longer eligible based on patient's age to complete this topic MENINGOCOCCAL (MENACTRA/MENVEO) Aged Out No longer eligible based on patient's age to complete this topic documented as of this encounter Medical Devices Not on filedocumented as of this encounter Care Teams Radio Frequency Design Engineer Relationship Specialty Start Date End Date Ruel Fajardo MD [address] [place] [address] [place] [address] PCP - General Family Medicine 10/17/19 documented as of this encounter
--- OUTSIDE RECORDS SUMMARY | 2023-09-12 10:38 | External Medical Summary | Summary of Care ---
Author Name Unknown Organization [facility] Address [address] [facility] [place] [address] Phone [phone] Care Team Providers Care Paper Products Supervisor Name Role Phone Ruel Fajardo MD Primary Care Provide r Reason for Visit * Reason Comments Injury Encounter Details Date Type Department Care Team (Late st Contact Info) Description 08/30/2023 3:20 PM EST Office Visit Family Practice [facility] [place] [address] [facility] [place] [address] Shahida Aviles PA-C [address] 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 150 Tablet 1 08/08/2023 Active Sulfamethoxazole-Tr imethoprim 800-160 MG Oral Tablet (Bactrim DS)Indications:Dysu sathish Take 1 Tablet by mouth in the morning and 1 Tablet before bedtime. Do all this for 7 days. Until gone. 14 Tablet 0 08/24/2023 Active Zoster Vac Recomb Adjuvanted 50 MCG/0.5ML Intramuscular Suspension Reconstituted (Shingrix)Indicatio ns:Need for shingles vaccine Inject 0.5 mL into a large muscle now and repeat dose in 60 to 180 days 1 Each 1 01/20/2021 Discontinue d(Medicatio n List Clean Up) Hospital, Clinic, or Other Facility Administered Medication [...] 100 mgIndications:Eosinophi lic asthma 100 mg SC [id number] 05/22/2023 04/22/2024 Active documented as of this [...] Sign Reading Time Taken Comments Blood Pressure 146/86 08/30/2023 3:56 PM EST Pulse 80 08/30/2023 3:56 PM EST Temperature 36.4 C (97.5 F) 08/30/2023 3:56 PM ES T Respiratory Rate 18 08/30/2023 3:56 PM EST Oxygen Saturation 96% 08/30/2023 3:56 PM EST Inhaled Oxygen Concentration - - Weight 102.9 kg (226 lb 12.8 oz) 08/30/2023 3:56 PM EST Height - - Body Mass Index 31.63 03/12/2023 1:01 PM EDT documented in this encounter Progress Notes * Shahida Aviles PA-C - 08/30/2023 4:07 PM EST Images from the original note were not included. History of Present Illness Theron Gao is a 68 year old male that presents for Injury Patient is a 68 year old male who presents with right wrist pain. Injjured 5 days ago wihil loadingpellets into the stove. Wrist became swollen , red, and warm. Tried ice. Tried topical pain creams. Physical Exam Vitals: 08/30/23 1556 Temp: 36.4 C (97.5 F) Pulse: 80 Resp: 18 SpO2: 96% BP: 146/86 BP Readings from Last 3 Encounters: 08/30/23 146/86 08/30/23 116/75 08/29/23 122/78 Wt Readings from Last 3 Encounters: 08/30/23 102.9 kg (226 lb 12.8 oz) 07/24/23 106.6 kg (235 lb 1.6 oz) 07/02/23 108 kg (238 lb 3.2 oz) General: alert, healthy, no distress, well nourished, well developed, comfortable, and cooperative Head: Normocephalic, No masses, lesions, tenderness or abnormalities Eye Exam: PERRLA, extraocular movements intact, conjunctiva are pink and non- injected, sclera clear Lungs: chest symmetric with normal AP diameter, no chest deformities noted, normal respiratory rateand rhythm, diaphragmatic excursion normal Extremities: less than 2 second capillary refill, no skin discoloration, no clubbing, no cyanosis, positive edema of right wrist. Slight increased warmth. Range of motion muscle strength appear to bewithin normal limits as are pulses in the upper extremities. I have reviewed the following results: None Assessment and Plan Swelling of right hand (Primary) - URIC ACID; Future; Expected date: 08/30/2023 - ERYTHROCYTE SEDIMENTATION RATE (ESR); Future; Expected date: 08/30/2023 - CBC; Future; Expected date: 08/30/2023 - LYME DISEASE ANTIBODY SCREEN WITH REFLEX TO CONFIRMATION; Future; Expected date: 08/30/2023 Wrap-Up Time: I spent a total of 20-29 minutes (exact time 26 mins) on the date of service in preparation, delivery, and documentation of the care provided to Theron Gao excluding any time spent in the performance of separately billed services. documented in this encounter Nursing Notes * Michelle Rodriguez LPN - 08/30/2023 3:55 PM EST Theron Gao presents with complaints of injury to right wrist causing swelling & pain documented in this encounter Plan of Treatment Upcoming Encounters Date Type Department Care Team (Late st Contact Info) Description 09/12/2023 1:00 PM EDT Nurse Only Pulmonary Medicine, [facility] [address] [facility] [place] [address] G[place], Nurse Pulmonary [address] [facility] [place] [address] 09/24/2023 1:30 PM EDT Hem/Onc Treatment Hematology/Oncology Treatment, [address] [place] [address] [place], Chair 1 Hem Onc Scenery [address] [facility] [place], [place] [address] 09/25/2023 1:00 PM EDT Hem/Onc Treatment Hematology/Oncology Treatment, [place] 200 [place] [address] [place], Chair 10 Hem Onc Scenery [address] [facility] [place], [place] [address] 09/26/2023 1:00 PM EDT Hem/Onc Treatment Hematology/Oncology Treatment, [address] [place] [address] [place], Chair 3 Hem Onc Scenery [address] [facility] [place] [address] 09/27/2023 11:30 AM EDT Hem/Onc Treatment Hematology/Oncology Treatment, [address], [place] [phone] 10/19/2023 11:15 AM EDT Office Visit Otolaryngology [facility] [address] [place] [address] Martita Gaston MD [address] [place] [address] 11/14/2023 3:00 PM EDT Office Visit Family Medicine [address] [phone] Ruel Fajardo MD [address] [place] [address] [place] [address] 11/20/2023 1:30 PM EDT Office Visit Allergy/Immunology [facility] [address] [place] [address] Adriel Montalvo MD [address] [place] [address] 07/25/2024 1:40 PM EST Office Visit Neurology [facility] [address] [place] [address] John Dodge, [address] [facility] [place] [address] Scheduled Orders Name Type Priority Associated Diagnoses Orde r Schedule URIC ACID Lab Routine Swelling of right hand Expected: 08/30/2023 (Approximate), Expires: 08/29/2024 ERYTHROCYTE SEDIMENTATION RATE (ESR) Lab Routine Swelling of right hand Expected: 08/30/2023 (Approximate), Expires: 08/29/2024 CBC Lab Routine Swelling of right hand Expected: 08/30/2023 (Approximate), Expires: 08/29/2024 LYME DISEASE ANTIBODY SCREEN WITH REFLEX TO CONFIRMATION Lab Routine Swelling of right hand Expected: 08/30/2023 (Approximate), Expires: 08/29/2024 Scheduled Procedures Name Priority Associated Diagnoses Date/Ti [...] D LEVEL ONCE IN A LIFETIME-USE SMARTSET# 73815 Completed 11/18/2020 Influenza Vaccine (FLU shot) Completed , 05/15/2022, 06/09/2021, Additional history exists GARDASIL-HPV IMMUNIZATION SERIES Aged Out No longer eligible based on patient's age to complete this topic MENINGOCOCCAL (MENACTRA/MENVEO) Aged Out No longer eligible based on patient's age to complete this topic documented as of this encounter Medical Devices Not on filedocumented as of this encounter Visit Diagnoses Diagnosis Swelling of right hand- Primary documented in this encounter Care Teams Paper Products Supervisor Relationship Specialty Start Date End Date Ruel Fajardo MD [address] [place] [address] [place] [address] PCP - General Family Medicine 10/17/19 documented as of this encounter
--- OUTSIDE RECORDS SUMMARY | 2023-09-12 10:39 | External Medical Summary | Summary of Care ---
Author Name Unknown Organization [facility] Address [address] [facility] [place] [address] Phone [phone] Care Team Providers Care Casing Cooker Name Role Phone Ruel Fajardo MD Primary Care Provide r Reason for Visit * Reason Comments IV Therapy Privigen 2/4 * Episode Based Medications (Routine) - Authorized Specialty Diagnoses / Procedures Referred By Contac t Referred To Contact Diagnoses CIDP (chronic inflammatory demyelinating polyneuropathy) ([facility]) Procedures MO INJ IVIG PRIVIGEN 500 MG John Dodge, DO [address] [place] [address] Anc Hem/Onc Joesph [facility] DEPT CLOSED - 05/08/23 [address] [place] [phone] Referral ID Status Reason Start Date Expiration Date V isits Requested Visits Authorized [id number] Authorized 03/16/2023 03/16/2024 [id number] Encounter Details Date Type Department Care Team (Latest Contact Info) Description 08/28/2023 11:30 AM EST Hem/Onc Treatment Hematology/Oncolog y Treatment, [facility] [address] [place] [address] [place], Chair 4 Hem Onc Scenery [address] [place] [id number] CIDP (chronic inflammatory demyelinating polyneuropathy) ([facility])* Allergies Active Allergy Reactions Criticality Noted Date Comments Amoxicillin Rash 07/17/2011 documented as of this encounter (statuses as of 08/28/2023) Medications Medication Sig Dispensed Refills Start Date [...] Tablet (vitamin B-2)Indications:CIDP (chronic inflammatory demyelinating polyneuropathy) ([facility]) Take by mouth 4 Tablets in the [...] Capsule (Neurontin)Indicatio ns:CIDP (chronic inflammatory demyelinating polyneuropathy) ([facility]) 3 tabs at bedtime 90 Capsule 5 [...] Respimat 2.5 MCG/ACT Inhalation Aerosol Solution (Tiotropium [place] Monohydrate)Indicati ons:Severe persistent asthma without complication Inhale [...] legs,Numbness and tingling of foot,Lumbar compression fracture ([facility]) TAKE ONE TABLET BY MOUTH TWICE DAILY [...] 100 mgIndications:Eosinophi lic asthma 100 mg SC [id number] 05/22/2023 04/22/2024 Active documented as of this encounter (statuses as of 08/28/2023) Active Problems Problem Noted Date Diagnosed Date [...] as of this encounter (statuses as of 08/28/2023) Resolved Problems Problem Noted Date Diagnosed Date Resolved Date Wedge compression fracture o f unspecified lumbar vertebra, initial encounter for closed fracture 09/06/2022 09/06/2022 Compression of lumbar vertebra 11/18/2020 01/20/2021 Asthma, moderate persistent 08/29/2011 10/16/2011 Asthma exacerbation 07/17/2011 05/13/20 12 documented as of this encounter (statuses as of 08/28/2023) Immunizations Name Administration Dates Next Due COVID-19 [...] Sign Reading Time Taken Comments Blood Pressure 130/86 08/28/2023 11:44 AM EST Pulse 93 08/28/2023 11:44 AM EST Temperature 36.6 C (97.8 F) 08/28/2023 11:[address] Respiratory Rate 16 08/28/2023 11:44 AM EST Oxygen Saturation 94% 08/28/2023 11:44 AM EST Inhaled Oxygen Concentration - - Weight - - Height - - Body Mass Index - - documented in this encounter Nursing Notes * Dorota Ardon RN - 08/28/2023 3:03 PM EST Chair 5. IV in place from tx yesterday, CDI/WNL, good blood return. Patient is feeling well, no acute issues or complaints. Safety and Risk for Injury Patient will remain free from injury. Ensure appropriate safety devices are available. Provide and maintain safe environment. Goals: Patient will remain free from injury. Possible barriers to meeting goals: ambulating with IV pole Stability of the patient: Moderately stable - low risk of patient condition declining or worsening Summary regarding today's goals: Met: pt remained free of harm today Patient tolerated treatment well without any acute issues or problems. IV left in place for tx tomorrow. Patient left facility in stable condition and denied any further needs. documented in this encounter Plan of Treatment Upcoming Encounters Date Type Department Care Team (Late st Contact Info) Description 08/29/2023 11:00 AM EST Hem/Onc Treatment Hematology/[address] [phone] [place], Chair 9 Hem Onc [facility] [address] [place] [address] [place] [address] 08/30/2023 11:45 AM EST Hem/Onc Treatment Hematology/Oncology [address], [address] [phone] [place], Chair 2 Hem Onc [facility] [address] [place] [address] [place] [address] 09/12/2023 1:00 PM EDT Nurse Only Pulmonary Medicine, [facility] 132 [facility] [place] [address] , Nurse Pulmonary [address] [facility] [place] [address] 09/24/2023 1:30 PM EDT Hem/Onc Treatment Hematology/Oncology [address], [address] [phone] [place], Chair 1 Hem Onc Scenery 200 [facility] [place] [address] 09/25/2023 1:00 PM EDT Hem/Onc Treatment Hematology/Oncology Treatment, [place] 200 [facility], [place] [phone] [place], Chair 10 Hem Onc [facility] 200 [place] [address] 09/26/2023 1:00 PM EDT Hem/Onc Treatment Hematology/Oncology Treatment, [address], [place] [phone] [place], Chair 3 Hem Onc [address] [place] [address] 09/27/2023 11:30 AM EDT Hem/Onc Treatment Hematology/Oncology Treatment, [address], [place] [phone] 10/19/2023 11:15 AM EDT Office Visit Otolaryngology [facility] [place] [address] Martita Gaston MD 132 [facility] [place] [address] 11/14/2023 3:00 PM EDT Office Visit Family Medicine [address] [phone] Ruel Fajardo MD [address] [place] [address] [place] [address] 11/20/2023 1:30 PM EDT Office Visit Allergy/Immunology [facility] [place] 200 [facility] [place] [address] Adriel Montalvo MD 200 [facility] [place] [address] 07/25/2024 1:40 PM EST Office Visit Neurology [facility] [place] [address] [place] [address] John Dodge, DO [address] [place] [address] Scheduled Procedures Name Priority Associated Diagnoses Date/Ti [...] D LEVEL ONCE IN A LIFETIME-USE SMARTSET# [id number] Completed 11/18/2020 Influenza Vaccine (FLU shot) Completed [...] Diagnoses Diagnosis CIDP (chronic inflammatory demyelinating polyneuropathy) ([facility])- Primary Chronic inflammatory demyelinating polyneuritis documented in this encounter Administered Medications Active Administered Medications - up to 3 most recent administrations Medication Order MAR Action Action Date Dose Rate Site diphenhydrAMINE (Benadryl) inj 50 mg 50 mg, IV Push, ONCE PRN Other, Hypersensitivity Reaction, Starting on Sun08/28/23 at 1142, Until Sun08/29/23 at 1141, For 24 hours EPINEPHrine 1 MG/ML inj 0.3 mg 0.3 mg, Intramuscular, ONCE PRN Other, Hypersensitivity Reaction or Anaphylaxis, Starting on Sun08/28/23 at 1142, Until Sun08/29/23 at 1141, For 24 hours hEParin 100 UNIT/ML Lock Flush inj 500 Units 500 Units (5 mL), IV Lock, PRN Other, IV Flush, Starting on Sun08/28/23 at 1142, Until Sun08/29/23 at 1141, For 24 hours, Do not flush if lock, PICC, or central line not in place; IV infusing or unable to flush. Given 08/28/2023 2:12 PM EST 500 Units Hydrocortisone Sod Suc (PF) (Solu-Cortef) inj 100 mg 100 mg, IV Push, ONCE PRN Other, Hypersensitivity Reaction, Starting on Sun08/28/23 at 1142, Until Sun08/29/23 at 1141, For 24 hours NSS infusion 500 mL, Intravenous, at 50 mL/hr, CONTINUOUS, Starting on Sun08/28/23 at 1245, Until Sun08/28/23 at 2244 Start Infusion 08/28/2023 11:49 AM EST 500 mL 50 mL/hr sodium chloride 0.9 % flush central line 10 mL 10 mL, IV Push, PRN Other, IV Flush, Starting on Sun08/28/23 at 1142, Until Sun08/29/23 at 1141, For 24 hours, Do not flush if lock, PICC, or central line not in place; IV infusing or unable to flush. Given 08/28/2023 2:12 PM EST 10 mL Inactive Administered Medications - up to 3 most recent administrations Medication Order MAR Action Action Date Dose Rate Site Acetaminophen (Tylenol) tab 650 mg 650 mg, Oral, ONCE, On Sun08/28/23 at 1245, For 1 dose, Maximum of 4 grams (4000 mg) per day. Given 08/28/2023 11:49 AM EST 650 mg diphenhydrAMINE (Benadryl) cap 25 mg 25 mg, Oral, ONCE, On Sun08/28/23 at 1245, For 1 dose Given 08/28/2023 11:49 AM EST 25 mg Immune Globulin Human-IVIG 10% (Privigen) IV 40 g 40 g, IV Piggyback, ONCE, 1 dose, On Sun08/28/23 at 1315, Total dose = 45 gm Dispensed as [...] Infusion duration = 1.8 hours Rate Change 08/28/2023 1:05 PM EST 423 mL/hr Rate Change 08/28/2023 12:50 PM EST 212 mL/hr Start Infusion 08/28/2023 12:39 PM EST 40 g 106 mL/h r Immune Globulin Human-IVIG 10% (Privigen) IV 5 g 5 g, IV Piggyback, ONCE, 1 dose, On Sun08/28/23 at 1245, Total dose = 45 gm [...] Infusion duration = 1.8 hours Rate Change 08/28/2023 12:35 PM EST 106 mL/hr Rate Change 08/28/2023 12:20 PM EST 53 mL/hr Start Infusion 08/28/2023 12:05 PM EST 5 g 26 mL/hr documented in this encounter Care Teams Casing Cooker Relationship Specialty Start Date End Date Ruel Fajardo MD [address] [place] [address] [place] [phone] PCP - General Family Medicine 10/17/19 documented as of this encounter
--- OUTSIDE RECORDS SUMMARY | 2023-09-12 10:39 | External Medical Summary | Summary of Care ---
Author Name Unknown Organization [facility] Address [address] [place] [address] Phone [phone] Care Team Providers Care Supervisor Welding Equipment Repairer Name Role Phone Ruel Fajardo MD Primary Care Provide r Reason for Visit * Reason Onset Date Comments Advice 08/24/2023 No Provider Encounter Details Date Type Department Care Team (Late st Contact Info) Description 08/24/2023 Telephone Hematology/Oncology [facility] [place] [address] [facility] [phone] [facility], Scheduling [address] [place] [address] Advice (No Provider) Allergies Active Allergy Reactions Criticality Noted Date Comments Amoxicillin Rash 07/17/2011 documented as of this encounter (statuses as of 08/24/2023) Medications Medication Sig Dispensed Refills Start Date [...] the skin every 4 weeks. 1 Each 12/16/2020 Active Zoster Vac Recomb Adjuvanted 50 MCG/0.5ML Intramuscular Suspension Reconstituted (Shingrix)Indication s:Need for shingles vaccine Inject 0.5 mL into a large muscle now and repeat dose in 60 to 180 days 1 Each 01/20/2021 Active DULoxetine HCl 60 MG Oral [...] Tablet (vitamin B-2)Indications:CIDP (chronic inflammatory demyelinating polyneuropathy) ([facility]) Take by mouth 4 Tablets in [...] Capsule (Neurontin)Indicatio ns:CIDP (chronic inflammatory demyelinating polyneuropathy) ([facility]) 3 tabs at bedtime 90 Capsule [...] Respimat 2.5 MCG/ACT Inhalation Aerosol Solution (Tiotropium [place] Monohydrate)Indicati ons:Severe persistent asthma without complication Inhale [...] 100 mgIndications:Eosinophi lic asthma 100 mg SC [id number] 05/22/2023 04/22/2024 Active documented as of this encounter (statuses as of 08/24/2023) Active Problems Problem Noted Date Diagnosed Date [...] as of this encounter (statuses as of 08/24/2023) Resolved Problems Problem Noted Date Diagnosed Date Resolved Date Wedge compression fracture o f unspecified lumbar vertebra, initial encounter for closed fracture 09/06/2022 09/06/2022 Compression of lumbar vertebra 11/18/2020 01/20/2021 Asthma, moderate persistent 08/29/2011 10/16/2011 Asthma exacerbation 07/17/2011 05/13/20 12 documented as of this encounter (statuses as of 08/24/2023) Immunizations Name Administration Dates Next Due COVID-19 [...] encounter Miscellaneous Notes * Telephone Encounter - John Dodge DO - 08/24/2023 2:54 PM EST Ok to proceed w infusions. * Telephone Encounter - Mila Thompson RN - 08/24/2023 10:35 AM EST Privigen ordered by Dr Dodge. Neuro: please advise / office on whether it is ok to proceed with infusions next week or if they need to be delayed. * Telephone Encounter - Pamela Joel OSA - 08/24/2023 9:46 AM EST Pt's Carole calling to advise Pt has been diagnosed with an infection and will be starting a course of Bactrim today for seven days. She wants to know if it is still okay to proceed with infusion appt on Saturday 08/26. Please call to advise, . documented in this encounter Plan of Treatment Upcoming Encounters Date Type Department Care Team (Late st Contact Info) Description 08/27/2023 11:00 AM EST Hem/Onc Treatment Hematology/Oncology Treatment, [place] 200 [facility], [place] [phone] [place], Chair 3 Hem Onc Scenery [address] [place], [place] [address] 08/28/2023 11:30 AM EST Hem/Onc Treatment Hematology/Oncology Treatment, [place] 200 [place] [phone] [place], Chair 4 Hem Onc Scenery [address] [place], [place] [address] 08/29/2023 11:00 AM EST Hem/Onc Treatment Hematology/Oncology Treatment, [place] 200 [facility], [place] [phone] [place], Chair 9 Hem Onc Scenery [address] [place], [place] [address] 08/30/2023 11:45 AM EST Hem/Onc Treatment Hematology/Oncology Treatment, [place] 200 [facility], [place] [phone] [place], Chair 2 Hem Onc Scenery [address] [place], [place] [address] 09/12/2023 1:00 PM EDT Nurse Only Pulmonary Medicine, [facility] [address] [facility] [place] [address] [place], Nurse Pulmonary [address] [facility] [place] [address] 10/19/2023 11:15 AM EDT Office Visit Otolaryngology [facility] [address] [place] [address] Martita Gaston MD [address] [place] [address] 11/14/2023 3:00 PM EDT Office Visit [address] [phone] Ruel Fajardo MD [address] [place] [address] [place] [address] 11/20/2023 1:30 PM EDT Office Visit Allergy/Immunology [facility] [address] [place] [address] Adriel Montalvo MD 200 [facility] [place] [address] 07/25/2024 1:40 PM EST Office Visit Neurology [facility] 200 [facility] [place] [address] John Dodge DO 200 [facility] [place] [address] Scheduled Procedures Name Priority Associated Diagnoses Date/Ti [...] D LEVEL ONCE IN A LIFETIME-USE SMARTSET# [id number] Completed 11/18/2020 Influenza Vaccine (FLU shot) Completed , 05/15/2022, 06/09/2021, Additional history exists GARDASIL-HPV IMMUNIZATION SERIES Aged Out No longer eligible based on patient's age to complete this topic MENINGOCOCCAL (MENACTRA/MENVEO) Aged Out No longer eligible based on patient's age to complete this topic documented as of this encounter Medical Devices Not on filedocumented as of this encounter Care Teams Supervisor Welding Equipment Repairer Relationship Specialty Start Date End Date Ruel Fajardo MD [address] [place] [address] [place] [address] PCP - General Family Medicine 10/17/19 documented as of this encounter
--- OUTSIDE RECORDS SUMMARY | 2023-09-12 10:39 | External Medical Summary | Summary of Care ---
Author Name Unknown Organization [facility] Address [address] [facility] [place] [address] Phone [phone] Care Team Providers Care Energy Scheduler Name Role Phone Ruel Fajardo MD Primary Care Provide r Reason for Visit * Reason Comments Treatment * Episode Based Medications (Routine) - Authorized Specialty Diagnoses / Procedures Referred By Contac t Referred To Contact Diagnoses CIDP (chronic inflammatory demyelinating polyneuropathy) ([facility]) Procedures SD INJ IVIG PRIVIGEN 500 MG John Dodge, DO [address] [place] [address] Anc Hem/Onc Scenerenae [facility]on DEPT CLOSED - 05/08/23 [address] [place] [address] Referral ID Status Reason Start Date Expiration Date V isits Requested Visits Authorized [id number] Authorized 03/16/2023 03/16/2024 999 [id number] Encounter Details Date Type Department Care Team (Latest Contact Info) Description 08/27/2023 11:00 AM EST Hem/Onc Treatment Hematology/Oncolog y Treatment, [facility] [address] [place] [address] [place], Chair 3 Hem Onc Scenery [address] [place] [address] CIDP (chronic inflammatory demyelinating polyneuropathy) ([facility])* Allergies Active Allergy Reactions Criticality Noted Date Comments Amoxicillin Rash 07/17/2011 documented as of this encounter (statuses as of 08/27/2023) Medications Medication Sig Dispensed Refills Start Date [...] Capsule (Neurontin)Indicatio ns:CIDP (chronic inflammatory demyelinating polyneuropathy) ([facility]) 3 tabs at bedtime 90 Capsule 5 [...] Respimat 2.5 MCG/ACT Inhalation Aerosol Solution (Tiotropium [place] Monohydrate)Indicati ons:Severe persistent asthma without complication Inhale [...] 100 mgIndications:Eosinophi lic asthma 100 mg SC [id number] 05/22/2023 04/22/2024 Active documented as of this encounter (statuses as of 08/27/2023) Active Problems Problem Noted Date Diagnosed Date [...] as of this encounter (statuses as of 08/27/2023) Resolved Problems Problem Noted Date Diagnosed Date Resolved Date Wedge compression fracture o f unspecified lumbar vertebra, initial encounter for closed fracture 09/06/2022 09/06/2022 Compression of lumbar vertebra 11/18/2020 01/20/2021 Asthma, moderate persistent 08/29/2011 10/16/2011 Asthma exacerbation 07/17/2011 05/13/20 12 documented as of this encounter (statuses as of 08/27/2023) Immunizations Name Administration Dates Next Due COVID-19 [...] Sign Reading Time Taken Comments Blood Pressure 127/79 08/27/2023 10:51 AM EST Pulse 105 08/27/2023 10:51 AM EST Temperature 36.8 C (98.2 F) 08/27/2023 10:[address] Respiratory Rate 18 08/27/2023 10:51 AM EST Oxygen Saturation 96% 08/27/2023 10:51 AM EST Inhaled Oxygen Concentration - - Weight - - Height - - Body Mass Index - - documented in this encounter Nursing Notes * Kelly Saeed RN - 08/27/2023 2:05 PM EST Safety and Risk for Injury Patient will remain free from injury. Ensure appropriate safety devices are available. Provide and maintain safe environment. Functional status at today's visit: Fully active, able to carry on all pre-disease performance without restriction Patient was assessed for symptoms or adverse side effects during treatment. Goals: Patient here for Privigen day 1. Possible barriers to meeting goals: IV pole. Stability of the patient: Moderately stable - low risk of patient condition declining or worsening Summary regarding today's goals: Met: Patient received privigen without any issues. documented in this encounter Plan of Treatment Upcoming Encounters Date Type Department Care Team (Late st Contact Info) Description 08/28/2023 11:30 AM EST Hem/Onc Treatment Hematology/[address], [address] [phone] [place], Chair 4 Hem Onc Scenery [address] [place] [address] [place] [address] 08/29/2023 11:00 AM EST Hem/Onc Treatment Hematology/Oncology Treatment, [address], [place] [address] [place], Chair 9 Hem Onc Scenery [address] [place] [address] [place] [address] 08/30/2023 11:45 AM EST Hem/Onc Treatment Hematology/Oncology Treatment, [address] [address] [place], Chair 2 Hem Onc Scenery 200 [facility] [place] [address] 09/12/2023 1:00 PM EDT Nurse Only Pulmonary Medicine, [facility] [address] [facility] [place] [address] Gw, Nurse Pulmonary [address] [facility] [place] [address] 10/19/2023 11:15 AM EDT Office Visit Otolaryngology [facility] [address] [place] [address] Martita Gaston MD [address] [place] [address] 11/14/2023 3:00 PM EDT Office Visit Family Medicine [address] [place] [address] Ruel Fajardo MD [address] [place] [address] [place] [address] 11/20/2023 1:30 PM EDT Office Visit Allergy/Immunology [facility] [place] [address] [place] [address] Adriel Montalvo MD [address] [place] [address] 07/25/2024 1:40 PM EST Office Visit Neurology [facility] [place] [address] [place] [address] John Dodge, [address] [place] [address] Scheduled Procedures Name Priority Associated Diagnoses Date/Ti [...] D LEVEL ONCE IN A LIFETIME-USE SMARTSET# 67468 Completed 11/18/2020 Influenza Vaccine (FLU shot) Completed [...] Diagnoses Diagnosis CIDP (chronic inflammatory demyelinating polyneuropathy) ([facility])- Primary Chronic inflammatory demyelinating polyneuritis documented in this encounter Administered Medications Active Administered Medications - up to 3 most recent administrations Medication Order MAR Action Action Date Dose Rate Site diphenhydrAMINE (Benadryl) inj 50 mg 50 mg, IV Push, ONCE PRN Other, Hypersensitivity Reaction, Starting on 08/27/23 at 1054, Until 08/28/23 at 1053, For 24 hours EPINEPHrine 1 MG/ML inj 0.3 mg 0.3 mg, Intramuscular, ONCE PRN Other, Hypersensitivity Reaction or Anaphylaxis, Starting on Sun08/27/23 at 1054, Until 08/28/23 at 1053, For 24 hours Hydrocortisone Sod Suc (PF) (Solu-Cortef) inj 100 mg 100 mg, IV Push, ONCE PRN Other, Hypersensitivity Reaction, Starting on Sun08/27/23 at 1054, Until Sun08/28/23 at 1053, For 24 hours NSS infusion 500 mL, Intravenous, at 50 mL/hr, CONTINUOUS, Starting on Sun08/27/23 at 1200, Until Sun08/27/23 at 2159 Start Infusion 08/27/2023 11:11 AM EST 500 mL 50 mL/hr Inactive Administered Medications - up to 3 most recent administrations Medication Order MAR Action Action Date Dose Rate Site Acetaminophen (Tylenol) tab 650 mg 650 mg, Oral, ONCE, On Sun08/27/23 at 1200, For 1 dose, Maximum of 4 grams (4000 mg) per day. Given 08/27/2023 11:15 AM EST 650 mg diphenhydrAMINE (Benadryl) cap 25 mg 25 mg, Oral, ONCE, On Sun08/27/23 at 1200, For 1 dose Given 08/27/2023 11:15 AM EST 25 mg Immune Globulin Human-IVIG 10% (Privigen) IV 40 g 40 g, IV Piggyback, ONCE, 1 dose, On Sun08/27/23 at 1230, Total dose = 45 gm Dispensed as [...] Infusion duration = 1.8 hours Rate Change 08/27/2023 12:30 PM EST 423 mL/hr Rate Change 08/27/2023 12:15 PM EST 212 mL/hr Rate Change 08/27/2023 12:00 PM EST 106 mL/hr Immune Globulin Human-IVIG 10% (Privigen) IV 5 g 5 g, IV Piggyback, ONCE, 1 dose, On Sun08/27/23 at 1200, Total dose = 45 gm Dispensed as [...] 351 mL Infusion duration = 1.8 hours Start Infusion 08/27/2023 1:12 PM EST 5 g 423 mL/hr documented in this encounter Care Teams Energy Scheduler Relationship Specialty Start Date End Date Ruel Fajardo MD [address] [place] [address] [place] [address] PCP - General Family Medicine 10/17/19 documented as of this encounter
--- OUTSIDE RECORDS SUMMARY | 2023-09-12 10:40 | External Medical Summary | Summary of Care ---
Author Name Unknown Organization [facility] Address [address] [place] [address] Phone [phone] Care Team Providers Care Automatic Trimming Sewer Name Role Phone Ruel Fajardo MD Primary Care Provide r Reason for Visit * Reason Onset Date Comments Advice 08/24/2023 No Provider Encounter Details Date Type Department Care Team (Late st Contact Info) Description 08/24/2023 Telephone Hematology/Oncology [facility] [place] [address] [facility] [address] Services, Scheduling [address] [place] [address] Advice (No Provider) Allergies Active Allergy Reactions [...] Tablet (vitamin B-2)Indications:CIDP (chronic inflammatory demyelinating polyneuropathy) ([facility] [...] Capsule (Neurontin)Indicatio ns:CIDP (chronic inflammatory demyelinating polyneuropathy) ([facility] [...] Respimat 2.5 MCG/ACT Inhalation Aerosol Solution (Tiotropium [place] Monohydrate)Indicati ons:Severe persistent asthma without complication Inhale [...] 100 mgIndications:Eosinophi lic asthma 100 mg SC [id number] 05/22/2023 04/22/2024 Active documented as of this [...] 11:00 AM EST Hem/Onc Treatment Hematology/Oncology Treatment, [place] [address] [facility], [place] [phone] [place], Chair 3 Hem Onc Scenery [address] [place], [place] [address] 08/28/2023 11:30 AM EST Hem/Onc Treatment Hematology/Oncology Treatment, [place] [address] [place] [address] [place], Chair 4 Hem Onc Scenery [address] [place], [place] [address] 08/29/2023 11:00 AM EST Hem/Onc Treatment Hematology/Oncology Treatment, [place] [address] [facility], [place] [address] [place], Chair 9 Hem Onc Scenery [address] [place], [place] [address] 08/30/2023 11:45 AM EST Hem/Onc Treatment Hematology/Oncology Treatment, [place] [address] [facility], [place] [phone] [place], Chair 2 Hem Onc Scenery [address] [place], [place] [address] 09/12/2023 1:00 PM EDT Nurse Only Pulmonary Medicine, [facility] [address] [facility] [place] [address] Gw, Nurse Pulmonary [address] [facility] [place] [address] 10/19/2023 11:15 AM EDT Office Visit Otolaryngology [facility] [address] [place] [address] Martita Gaston MD [address] [place] [address] 11/14/2023 3:00 PM EDT Office Visit [address] [address] Ruel Fajardo MD [address] [place] [address] [place] [address] 11/20/2023 1:30 PM EDT Office Visit Allergy/Immunology [facility] [address] [place] [address] Adriel Monatlvo MD [address] [facility] [place] [address] 07/25/2024 1:40 PM EST Office Visit Neurology [facility] [address] [facility] [place] [address] John Dodge DO [address] [facility] [place] [address] Scheduled Procedures Name Priority Associated Diagnoses Date/Ti [...] D LEVEL ONCE IN A LIFETIME-USE SMARTSET# [id number] Completed 11/18/2020 Influenza Vaccine (FLU shot) Completed , 05/15/2022, 06/09/2021, Additional history exists GARDASIL-HPV IMMUNIZATION SERIES Aged Out No longer eligible based on patient's age to complete this topic MENINGOCOCCAL (MENACTRA/MENVEO) Aged Out No longer eligible based on patient's age to complete this topic documented as of this encounter Medical Devices Not on filedocumented as of this encounter Care Teams Automatic Trimming Sewer Relationship Specialty Start Date End Date Ruel Fajardo MD [address] [place] [address] [place] [address] PCP - General Family Medicine 10/17/19 documented as of this encounter
--- OUTSIDE RECORDS SUMMARY | 2023-09-12 10:40 | External Medical Summary | Summary of Care ---
Author Name Unknown Organization [facility] Address [address] [facility] [place] [address] Phone [phone] Care Team Providers Care Leather Coverer Name Role Phone Ruel Fajardo MD Primary Care Provide r Reason for Visit * Reason Comments Outpatient Testing Encounter Details Date Type Department Care Team (Late st Contact Info) Description 08/23/2023 2:20 PM EST Laboratory Laboratory [address] [place] [phone] [place] [address] Wear Other*[id number]; Encounter for long-term (current) use of medications; Dysuria Allergies Active Allergy Reactions Criticality Noted Date Comments Amoxicillin Rash 07/17/2011 documented as of this encounter (statuses as of 08/23/2023) Medications Medication Sig Dispensed Refills Start Date [...] Recomb Adjuvanted 50 MCG/0.5ML Intramuscular Suspension Reconstituted (Shingrix)Indications :Need for shingles vaccine Inject 0.5 mL into [...] (vitamin B-2)Indications:CIDP (chronic inflammatory demyelinating polyneuropathy) ([facility]) Take by mouth 4 Tablets in the [...] Capsule (Neurontin)Indication s:CIDP (chronic inflammatory demyelinating polyneuropathy) ([facility]) 3 tabs at bedtime 90 Capsule 5 [...] Respimat 2.5 MCG/ACT Inhalation Aerosol Solution (Tiotropium [place] Monohydrate)Indicatio ns:Severe persistent asthma without complication Inhale [...] 100 mgIndications:Eosinophi lic asthma 100 mg SC [id number] 05/22/2023 04/22/2024 Active documented as of this encounter (statuses as of 08/23/2023) Active Problems Problem Noted Date Diagnosed Date [...] as of this encounter (statuses as of 08/23/2023) Resolved Problems Problem Noted Date Diagnosed Date Resolved Date Wedge compression fracture o f unspecified lumbar vertebra, initial encounter for closed fracture 09/06/2022 09/06/2022 Compression of lumbar vertebra 11/18/2020 01/20/2021 Asthma, moderate persistent 08/29/2011 10/16/2011 Asthma exacerbation 07/17/2011 05/13/20 12 documented as of this encounter (statuses as of 08/23/2023) Immunizations Name Administration Dates Next Due COVID-19 [...] on file documented as of this encounter Plan of Treatment Upcoming Encounters Date Type Department Care Team (Late st Contact Info) Description 08/27/2023 11:00 AM EST Hem/Onc Treatment Hematology/Oncology [address], [address] [phone] [place], Chair 3 Hem Onc Scenery 200 [facility] [place] [address] 08/28/2023 11:30 AM EST Hem/Onc Treatment Hematology/Oncology Treatment, [address], [place] [address] [place], Chair 4 Hem Onc Scenery 200 [facility] [place] [address] 08/29/2023 11:00 AM EST Hem/Onc Treatment Hematology/Oncology Treatment, [place] 200 [facility], [place] [address] [place], Chair 9 Hem Onc Scenery [address] [place] [address] 08/30/2023 11:45 AM EST Hem/Onc Treatment Hematology/Oncology Treatment, [address], [place] [address] [place], Chair 2 Hem Onc Scenery [address] [place] [address] 09/12/2023 1:00 PM EDT Nurse Only Pulmonary Medicine, [facility] [address] [place] [address] Gw, Nurse Pulmonary [address] [place] [address] 10/19/2023 11:15 AM EDT Office Visit Otolaryngology [facility] [address] [place] [address] Martita Gaston MD [address] [place] [address] 11/14/2023 3:00 PM EDT Office Visit Family Medicine [address] [place] [phone] Ruel Fajardo MD [address] [place] [address] [place] [address] 11/20/2023 1:30 PM EDT Office Visit Allergy/Immunology [facility] [address] [place] [address] Adriel Montalvo MD [address] [place] [address] 07/25/2024 1:40 PM EST Office Visit Neurology [facility] [address] [place] [address] John Dodge DO [address] [place] [address] Pending Results Name Type Priority Associated Diagnoses Date /Time MYCODE SUBSEQUENT ADULT Lab Routine [employer] Other*[id number] 08/23/2023 2:22 PM EST COMPREHENSIVE METABOLIC PANEL Lab Routine Encounter for long-term (current) use of medications 08/23/2023 2:22 PM EST CULTURE, URINE, QUANTITATIVE Lab Routine Dysuria 08/23/2023 2:22 PM EST URINALYSIS, REFLEX TO MICROSCOPIC Lab Routine Dysuria 08/23/2023 2:22 PM EST MYCODE SST1 Lab Routine [employer] Other*[id number] 08/23/2023 2:22 PM EST MYCODE SST2 Lab Routine [employer] Other*[id number] 08/23/2023 2:22 PM EST Scheduled Procedures Name Priority Associated Diagnoses Date/Ti [...] Additional history exists DXA Scan 07/29/2021 07/29/2019 GFR 09/07/2023 09/06/2022, 01/24, 06/09/2021, Additional history exists Depression Screening 05/11/2024 05/11/2023 Albumin/Creatinine Ratio 09/06/2025 023, 02/20/2022, 08/07/2019 Diabetes Screening 09/06/2025 09/06/2022, 0 02/20/2022, 02/20/2022, Additional history exists Lipid Panel 09/07/2027 09/06/2022, 01/24, 08/07/2019, Additional history exists COLONOSCOPY-EVERY 5 YRS AGES 18-100 11/22/2027 11/21/2022, 11/21/2022, 04/03/2016, Additional history exists AAA Screening Completed 08/11/2019 VITAMIN D LEVEL ONCE IN A LIFETIME-USE SMARTSET# [id number] Completed 11/18/2020 Influenza Vaccine (FLU shot) Completed , 05/15/2022, 06/09/2021, Additional history exists GARDASIL-HPV IMMUNIZATION SERIES Aged Out No longer eligible based on patient's age to complete this topic MENINGOCOCCAL (MENACTRA/MENVEO) Aged Out No longer eligible based on patient's age to complete this topic documented as of this encounter Medical Devices Not on filedocumented as of this encounter Visit Diagnoses Diagnosis [employer] Other*[id number] Encounter for long-term (current) use of medications Encounter for long-term (current) use of other medications Dysuria documented in this encounter Care Teams Leather Coverer Relationship Specialty Start Date End Date Ruel Fajardo MD [address] [place] [address] [place] [address] PCP - General Family Medicine 10/17/19 documented as of this encounter
--- OUTSIDE RECORDS SUMMARY | 2023-09-12 10:40 | External Medical Summary ---
Author Name Unknown Address Unknown Organization K01:[facility] [place] [address] [place] [address] Laboratory Report Ordering Provider Test Date Status JEANIE THAKKAR 08/23/2023 14:22:48 Final Observation Date Value Abnormality Reference (Units ) Status MYCODE SPECIMEN-SST 08/23/2023 14:22:48 Freezing of extracted DNA, whole blood and/or serum. Final Performing Location LABORATORY C - [address] [place] [address]
--- OUTSIDE RECORDS SUMMARY | 2023-09-12 10:40 | External Medical Summary ---
Author Name Unknown Address Unknown Organization K01:[facility] [place] [address] [facility] [place] [address] Laboratory Report Ordering Provider Test Date Status LUDWIG ORTIZ 08/23/2023 14:22:48 Final Observation Date Value Abnormality Reference (Units ) Status BUN 08/23/2023 14:22:48 17 6-20 (mg/dL) Final Creatinine 08/23/2023 14:22:48 0.9 0.6-1.2 (mg/dL) Final Glomerular filtration rate/1.73 sq M.predicted [Volume Rate/Area] in Serum, Plasma or Blood by Creatinine-based formula (CKD-EPI) 08/23/2023 14:22:48 >90 >=60 (mL/min) Final eGFR is calculated based on the CKD-EPI 2020 equation SODIUM 08/23/2023 14:22:48 138 135-146 (m mol/L) Final Potassium 08/23/2023 14:22:48 4.0 3.5-5.1 (m mol/L) Final Cl 08/23/2023 14:22:48 100 98-107 (mm ol/L) Final CO2 08/23/2023 14:22:48 22 22-32 (mmo l/L) Final Anion gap 08/23/2023 14:22:48 16 Above high normal 7- 15 (mmol/L) Final Glucose 08/23/2023 14:22:48 81 70-120 (mg /dL) Final Albumin 08/23/2023 14:22:48 4.2 3.8-5.0 (g /dL) Final AST (Aspartate aminotransferase) 08/23/2023 14:22:48 26 10-50 (U/L) Fin al Result may be falsely elevat ed due to hemolysis. Alk Phos 08/23/2023 14:22:48 71 35-130 (U/ L) Final Bilirubin, Total 08/23/2023 14:22:48 0.4 <=1 .2 (mg/dL) Final Calcium 08/23/2023 14:22:48 9.7 8.4-10.2 ( mg/dL) Final Protein 08/23/2023 14:22:48 7.3 6.0-8.3 (g /dL) Final ALT (Alanine aminotransferase) 08/23/2023 14:22:48 28 10-50 (U/L) Final Performing Location [facility] [place] [facility] [address] [facility] [address]
--- OUTSIDE RECORDS SUMMARY | 2023-09-12 10:40 | External Medical Summary ---
Author Name Unknown Address Unknown Organization K01:LABORATORY [facility] [place] - [address] [facility] [address] Laboratory Report Ordering Provider Test Date Status DARLING FUNK 08/23/2023 14:22:48 Imelda l Observation Date Value Abnormality Reference (Units ) Status Color of Urine by Auto 08/23/2023 14:22:48 Light Yellow Colorless, Light Yellow, Yellow, Dark Yellow Final Clarity, Urine 08/23/2023 14:22:48 Clear Clear Final Glucose [Mass/volume] in Urine by Automated test strip 08/23/2023 14:22:48 Negative Negative (mg/dL) Final Bilirubin.total [Presence] in Urine by Automated test strip 08/23/2023 14:22:48 Negative Negative Final Ketones [Mass/volume] in Urine by Automated test strip 08/23/2023 14:22:48 Negative Negative (mg/dL) Final Specific gravity, Urine 08/23/2023 14:22:48 1.014 1.003-1.030 Final Hemoglobin [Presence] in Urine by Automated test strip 08/23/2023 14:22:48 Trace Abnormal Negative Final pH, Urine 08/23/2023 14:22:48 6.5 5.0-7.5 (Units) Final Protein [Mass/volume] in Urine by Automated test strip 08/23/2023 14:22:48 Trace Abnormal Negative (mg/dL) Final Urobilinogen [Mass/volume] in Urine by Automated test strip 08/23/2023 14:22:48 Normal Normal (mg/dL) Final Nitrite [Presence] in Urine by Automated test strip 08/23/2023 14:22:48 Positive Abnormal Negative Final Leukocyte esterase [Presence] in Urine by Automated test strip 08/23/2023 14:22:48 Large Abnormal Negative Final RBC, Urine 08/23/2023 14:22:48 3-5 Abnormal 0-2 (/HPF) Final WBC, Urine 08/23/2023 14:22:48 50+ Abnormal 0-2 (/HPF) Final Bacteria [#/area] in Urine sediment by Microscopy high power field 08/23/2023 14:22:48 0-25 0-25 (/HPF) Final Performing Location LABORATORY [facility] [place] - [facility] [address] [facility] [address]
--- OUTSIDE RECORDS SUMMARY | 2023-09-12 10:40 | External Medical Summary | Summary of Care ---
Author Name Unknown Organization [facility] Address [address] [facility] [place] [address] Phone [phone] Care Team Providers Care News Content Specialist Name Role Phone Ruel Fajardo MD Primary Care Provide r Encounter Details Date Type Department Care Team (Late st Contact Info) Description 08/22/2023 Orders Only Neurology [facility] [address] [place] [address] John Dodge, DO [address] [place] [address] Allergies Active Allergy Reactions Criticality Noted Date Comments Amoxicillin Rash 07/17/2011 documented as of this encounter (statuses as of 08/22/2023) Medications Medication Sig Dispensed Refills Start Date [...] Capsule (Neurontin)Indication s:CIDP (chronic inflammatory demyelinating polyneuropathy) ([facility]) [...] Respimat 2.5 MCG/ACT Inhalation Aerosol Solution (Tiotropium [place] Monohydrate)Indicatio ns:Severe persistent asthma without complication Inhale [...] 100 mgIndications:Eosinophi lic asthma 100 mg SC [id number] 05/22/2023 04/22/2024 Active documented as of this encounter (statuses as of 08/22/2023) Active Problems Problem Noted Date Diagnosed Date [...] as of this encounter (statuses as of 08/22/2023) Resolved Problems Problem Noted Date Diagnosed Date Resolved Date Wedge compression fracture o f unspecified lumbar vertebra, initial encounter for closed fracture 09/06/2022 09/06/2022 Compression of lumbar vertebra 11/18/2020 01/20/2021 Asthma, moderate persistent 08/29/2011 10/16/2011 Asthma exacerbation 07/17/2011 05/13/20 12 documented as of this encounter (statuses as of 08/22/2023) Immunizations Name Administration Dates Next Due COVID-19 [...] 11:00 AM EST Hem/Onc Treatment Hematology/Oncology Treatment, [address], [place] [phone] [place], Chair 3 Hem Onc Scenery [address] [place] [address] 08/28/2023 11:30 AM EST Hem/Onc Treatment Hematology/[address], [address] [address] [place], Chair 4 Hem Onc Scenery [address] [place] [address] 08/29/2023 11:00 AM EST Hem/Onc Treatment Hematology/Oncology Treatment, [place] 200 [facility], [place] [address] [place], Chair 9 Hem Onc Scenery [address] [place] [address] 08/30/2023 11:45 AM EST Hem/Onc Treatment Hematology/Oncology Treatment, [address], [place] [address] [place], Chair 2 Hem Onc Scenery [address] [place], [place] [address] 09/12/2023 1:00 PM EDT Nurse Only Pulmonary Medicine, [facility] 132 [facility] [place] [address] Gw, Nurse Pulmonary 132 [facility] [place] [address] 10/19/2023 11:15 AM EDT Office Visit Otolaryngology [facility] [address] [place] [address] Martita Gaston MD 132 [place] [address] 11/14/2023 3:00 PM EDT Office Visit Family Medicine [address] [place] [address] Ruel Fajardo MD [address] [place] [address] [place] [address] 11/20/2023 1:30 PM EDT Office Visit Allergy/Immunology [facility] [address] [place] [address] Adriel Montalvo MD 200 [facility] [place] [address] 07/25/2024 1:40 PM EST Office Visit Neurology [facility] [address] [place] [address] John Dodge, 200 [facility] [place] [address] Scheduled Procedures Name Priority Associated Diagnoses Date/Ti [...] D LEVEL ONCE IN A LIFETIME-USE SMARTSET# 77327 Completed 11/18/2020 Influenza Vaccine (FLU shot) Completed , 05/15/2022, 06/09/2021, Additional history exists GARDASIL-HPV IMMUNIZATION SERIES Aged Out No longer eligible based on patient's age to complete this topic MENINGOCOCCAL (MENACTRA/MENVEO) Aged Out No longer eligible based on patient's age to complete this topic documented as of this encounter Medical Devices Not on filedocumented as of this encounter Care Teams News Content Specialist Relationship Specialty Start Date End Date Ruel Fajardo MD [address] [place] [address] [place] [address] PCP - General Family Medicine 10/17/19 documented as of this encounter
--- OUTSIDE RECORDS SUMMARY | 2023-09-12 10:40 | External Medical Summary | Summary of Care ---
Author Name Unknown Organization [facility] Address [address] [place] [address] Phone [phone] Care Team Providers Care Home Service Director Name Role Phone Ruel Fajardo MD Primary Care Provide r Reason for Visit * Reason Onset Date Comments Advice 08/24/2023 No Provider Encounter Details Date Type Department Care Team (Late st Contact Info) Description 08/24/2023 Telephone Hematology/Oncology [facility] [place] [address] [facility] [address] Services, Scheduling [address] [place] [address] Advice (No Provider) Allergies Active Allergy Reactions [...] (vitamin B-2)Indications:CIDP (chronic inflammatory demyelinating polyneuropathy) ([facility]) Take by mouth 4 Tablets in the [...] (Neurontin)Indicatio ns:CIDP (chronic inflammatory demyelinating polyneuropathy) ([facility]) 3 tabs at bedtime 90 Capsule 5 [...] Respimat 2.5 MCG/ACT Inhalation Aerosol Solution (Tiotropium [place] Monohydrate)Indicati ons:Severe persistent asthma without complication Inhale [...] 100 mgIndications:Eosinophi lic asthma 100 mg SC [id number] 05/22/2023 04/22/2024 Active documented as of this [...] encounter Miscellaneous Notes * Telephone Encounter - Mila Thompson RN [...] 11:00 AM EST Hem/Onc Treatment Hematology/Oncology Treatment, [place] [address] [place] [phone] [place], Chair 3 Hem Onc Scenery [address] [place] [address] 08/28/2023 11:30 AM EST Hem/Onc Treatment Hematology/Oncology Treatment, [place] 200 [place] [phone] [place], Chair 4 Hem Onc Scenery 200 [facility] [place], [place] [address] 08/29/2023 11:00 AM EST Hem/Onc Treatment Hematology/Oncology Treatment, [address], [place] [phone] [place], Chair 9 Hem Onc Scenery 200 [facility] [place] [address] 08/30/2023 11:45 AM EST Hem/Onc Treatment Hematology/Oncology Treatment, [address], [place] [phone] [place], Chair 2 Hem Onc Scenery 200 [facility] [place] [address] 09/12/2023 1:00 PM EDT Nurse Only Pulmonary Medicine, [facility] [address] Gw, Nurse Pulmonary [facility] [address] 10/19/2023 11:15 AM EDT Office Visit Otol[facility] 132 [facility] [address] Martita Gaston MD 132 [facility] [place] [address] 11/14/2023 3:00 PM EDT Office Visit Family Medicine [address] [place] [phone] Ruel Fajardo MD [address] [place] [address] [place] [address] 11/20/2023 1:30 PM EDT Office Visit Allergy/Immunology [facility] 200 [facility] [place] [address] Adriel Montalvo MD 200 [facility] [place] [address] 07/25/2024 1:40 PM EST Office Visit Neurology [facility] 200 [facility] [place] [address] John Dodge, 200 [facility] [place] [address] Scheduled Procedures Name Priority Associated Diagnoses Date/Ti [...] D LEVEL ONCE IN A LIFETIME-USE SMARTSET# 43285 Completed 11/18/2020 Influenza Vaccine (FLU shot) Completed , 05/15/2022, 06/09/2021, Additional history exists GARDASIL-HPV IMMUNIZATION SERIES Aged Out No longer eligible based on patient's age to complete this topic MENINGOCOCCAL (MENACTRA/MENVEO) Aged Out No longer eligible based on patient's age to complete this topic documented as of this encounter Medical Devices Not on filedocumented as of this encounter Care Teams Home Service Director Relationship Specialty Start Date End Date Ruel Fajardo MD [address] [place] [address] [place] [address] PCP - General Family Medicine 10/17/19 documented as of this encounter
--- OUTSIDE RECORDS SUMMARY | 2023-09-12 10:40 | External Medical Summary ---
Author Name Unknown Address Unknown Organization K01:LABORATORY [facility] - [address] [place] [address] Laboratory Report Ordering Provider Test Date Status JEANIE THAKKAR 08/23/2023 14:22:48 Final Observation Date Value Abnormality Reference (Units ) Status MYCODE SPECIMEN-SST 08/23/2023 14:22:48 Freezing of extracted DNA, whole blood and/or serum. Final Performing Location LABORATORY [facility] - [address] [place] [address]
--- OUTSIDE RECORDS SUMMARY | 2023-09-12 10:40 | External Medical Summary ---
Author Name Unknown Address Unknown Organization K01:[facility] - [address] [facility] [address] [place] [address] Laboratory Report Ordering Provider Test Date Status DARLING FUNK 08/23/2023 14:22:48 Imelda l Observation Date Value Abnormality Reference (Units ) Status Bacteria identified in Specimen by Culture 08/23/2023 14:22:48 [id number]^STAPHY LOCOCCUS AUREUS Abnormal Final >100,000 colonies/mL Staphyl ococcus aureus Performing Location LABORATORY [facility] - [address] [place] [address] Ordering Provider Test Date Status DARLING FUNK 08/23/2023 14:22:48 Imelda l Observation Date Value Abnormality Reference (Units ) Status Nitrofurantoin susceptibility 08/23/2023 14:22:48 <=16 Susceptible Final Oxacillinsusceptibility 08/23/2023 14:22:48 <=0.25 Susceptible Final Penicillin susceptibility 08/23/2023 14:22:48 >=0.5 Resistant Final Tetracyclinesusceptibility 08/23/2023 14:22:48 <=1 Susceptible Final TMP-SMZ susceptibility 08/23/2023 14:22:48 <=10 Susceptible Final Vancomycinsusceptibility 08/23/2023 14:22:48 1 Susceptible Final Test: Culture, Urine, Quant itative
Specimen Source: Urine, Clean Catch
Specimen Type: Urine
Specimen Date: 08/23/2023 2:22 PM
Result Date: 08/27/2023 9:53 AM
Result Status: Final result
Abnormal: Yes
Resulting Lab: [facility]
[address]
[place] [address]

CULTURE

>100,000 colonies/mL Staphylococcus aureus (Abnormal)

SUSCEPTIBILITY

Staphylococcus
aureus
METHOD MICROBROTH
DILUTIONS

NITROFURANTOIN <=16 Susceptible
OXACILLIN <=0.25 Susceptible
PENICILLIN G >=0.5 Resistant
TETRACYCLINE <=1 Susceptible
TRIMETH/SULFAMETHOXAZOLE <=10 Susceptible
VANCOMYCIN 1 Susceptible

[facility] Performing Location LABORATORY [facility] - [address] [facility] [address]
--- OUTSIDE RECORDS SUMMARY | 2023-09-12 10:40 | External Medical Summary | Summary of Care ---
Author Name Unknown Organization [facility] Address [address] [facility] [place] [address] Phone [phone] Care Team Providers Care Social Sciences Department Chair Name Role Phone Ruel Fajardo MD Primary Care Provide r Reason for Visit * Reason Comments IV Therapy IVIG * Episode Based Medications (Routine) - Authorized Specialty Diagnoses / Procedures Referred By Contac t Referred To Contact Diagnoses CIDP (chronic inflammatory demyelinating polyneuropathy) ([facility]) Procedures MT INJ IVIG PRIVIGEN 500 MG John Dodge, DO [address] [place] [address] Anc Hem/Onc [facility] DEPT CLOSED - 05/08/23 [address] [place] [address] Referral ID Status Reason Start Date Expiration Date V isits Requested Visits Authorized [id number] Authorized 03/16/2023 03/16/2024 [id number] Encounter Details Date Type Department Care Team (Latest Contact Info) Description 07/03/2023 1:15 PM EST Hem/Onc Treatment Hematology/Oncolog y Treatment, [place] [address] [place] [address] [place], Chair 9 Hem Onc Scenery [address] [place] [address] CIDP (chronic inflammatory demyelinating polyneuropathy) ([facility])* Allergies Active Allergy Reactions Criticality Noted Date Comments Amoxicillin Rash 07/17/2011 documented as of this encounter (statuses as of 08/22/2023) Medications Medication Sig Dispensed Refills Start Date End Date Status IBUPROFEN 200 MG PO CAPS None Entered 0 Active METAXALONE 800 MG PO TABS take one tab by mouth three times a day as needed 0 1 Active Pseudoephedrine-gu aiFENesin ER 120-1200 MG Tablet Extended Release 12 [...] Active Nucala 100 MG Subcutaneous Solution Reconstituted (Mepolizumab)Indic ations:Severe persistent asthma without complication,Aller gic eosinophilia Inject 1 Each under the skin every 4 weeks. 1 Each 11 1 Active Zoster Vac Recomb Adjuvanted 50 MCG/0.5ML Intramuscular Suspension Reconstituted (Shingrix)Indicati ons:Need for shingles vaccine Inject 0.5 mL into a large muscle now and repeat dose in 60 to 180 days 1 Each 1 1 Active DULoxetine HCl 60 MG Oral Capsule Delayed Release Particles (Cymbalta)Jefefryti ons:Low back pain without sciatica, unspecified back pain laterality, unspecified chronicity Take 1 Cap by mouth daily. Do not cut, crush or chew 30 Cap 2 1 Active Meloxicam 7.5 MG Oral Tablet Take 1 Tab by mouth daily. 30 Tab 5 1 Active Vitamin B-2 100 MG Oral Tablet (vitamin B-2)Indications:CI DP (chronic inflammatory demyelinating polyneuropathy) ([facility]) Take by mouth 4 Tablets in the morning. 120 Tablet 3 2 Active Wixela Inhub 500-50 MCG/ACT Inhalation Aerosol Powder Breath Activated (Fluticasone-Salme terol)Indications: Severe persistent asthma without complication INHALE ONE PUFF BY MOUTH TWICE DAILY 180 Each 3 2 Active Atorvastatin Calcium 10 MG Oral Tablet (Lipitor)Jefferytio ns:Mixed hyperlipidemia Take by mouth 1 Tablet in the morning. 30 Tablet 2 2 Active Gabapentin 100 MG Oral Capsule (Neurontin)Indicat ions:CIDP (chronic inflammatory demyelinating polyneuropathy) ([facility]) 3 tabs at bedtime 90 Capsule 5 2 Active Albuterol Sulfate (2.5 MG/3ML) 0.083% Inhalation Nebulization Solution (Proventil)Indicat ions:Wheeze INHALE ONE VIAL VIA NEBULIZER EVERY 4 HOURS NEEDED FOR WHEEZING OR SHORTNESS OF BREATH 180 mL 1 3 Active Losartan Potassium 25 MG Oral Tablet (Cozaar)Indication s:HTN, goal below 140/90 Take 2 Tablets by [...] Respimat 2.5 MCG/ACT Inhalation Aerosol Solution (Tiotropium [place] Monohydrate)Indica tions:Severe persistent asthma without complication Inhale 2 Puffs by mouth in the morning. 12 g 2 3 Active Montelukast Sodium 10 MG Oral Tablet (Singulair)Indicat ions:Asthma, severe persistent Take 1 Tablet by mouth in the morning. 90 Tablet 3 3 Active hydroCHLOROthiazid e 12.5 MG Oral Capsule (Hydrodiuril)Indic ations:HTN, goal below 140/90 Take 3 Capsules by mouth in the morning. - on days of IVIG infusion. 60 Capsule 1 3 Active Albuterol Sulfate HFA 108 (90 Base) MCG/ACT Inhalation Aerosol SolutionIndication s:Severe persistent asthma without complication INHALE 2 PUFFS BY MOUTH EVERY 4 HOURS NEEDED FOR WHEEZING 18 g 5 3 Active Azelastine HCl 137 MCG/SPRAY Nasal Solution Administer into nostril 2 Sprays in the morning AND 2 Sprays before bedtime. 30 mL 11 2 07/23/19 24 Discontinued(Re fill) hydroCHLOROthiazid e 25 MG Oral Tablet (Hydrodiuril)Indic ations:HTN, goal below 140/90 Take 1 Tablet by mouth in the morning. 90 Tablet 1 3 07/24/19 24 Discontinued Metoprolol Succinate ER 25 MG Oral Tablet Extended Release 24 Hour (toPROL XL)Indications:HTN , goal below 140/90 Take 1 Tablet by mouth in the morning. And can take 4 tabs daily during IVIG treatment days. 150 Tablet 1 3 08/07/19 24 Discontinued(Re fill) Cyclobenzaprine HCl 5 MG Oral Tablet (Flexeril)Indicati ons:Weakness of both legs,Numbness and tingling of foot,Lumbar compression fracture (HCC) TAKE ONE TABLET BY MOUTH TWICE DAILY NEEDED FOR MUSCLE SPASM 30 Tablet 1 3 07/11/19 24 Discontinued(Re fill) predniSONE 10 MG Oral Tablet (Deltasone) 1-3 tabs daily as directed 90 Tablet 0 3 07/16/19 24 Discontinued(Re fill) hydrALAZINE HCl 25 MG Oral Tablet (Apresoline)Indica tions:HTN, goal below 140/90 Take 1 Tablet by mouth every 4 hours as needed for Hypertension. If Blood pressure above 160/100 60 Tablet 0 4 07/30/19 24 Discontinued(Re fill) Hospital, Clinic, or Other Facility Administered Medication [...] 100 mgIndications:Eosinophi lic asthma 100 mg SC [id number] 05/22/2023 04/22/2024 Active documented as of this [...] Sign Reading Time Taken Comments Blood Pressure 132/84 07/03/2023 2:34 PM EST Pulse 84 07/03/2023 2:34 PM EST Temperature 37.2 C (99 F) 07/03/2023 2:25 PM EST Respiratory Rate 18 07/03/2023 2:25 PM EST Oxygen Saturation 93% 07/03/2023 2:25 PM EST Inhaled Oxygen Concentration - - Weight - - Height - - Body Mass Index - - documented in this encounter Nursing Notes * Kayla Ty, RN - 07/03/2023 4:24 PM EST Pt completed treatment without issues. IV flushed, clamped and capped for treatment tomorrow. Goals: Pt will remain free from injury. Possible barriers to meeting goals: pt is a high fall risk Stability of the patient: Moderately stable - low risk of patient condition declining or worsening Summary regarding today's goals: Met: Pt remained free from injury during treatment today. Discharged in stable condition. No coverage. * Kayla Ty RN - 07/03/2023 2:25 PM EST Chair 8, IVIG. Pt has no acute concerns to report since treatment yesterday. PIV assessed for patency; NSS infusing. Safety and Risk for Injury Patient will remain free from injury. Ensure appropriate safety devices are available. Provide and maintain safe environment. documented in this encounter Plan of Treatment Upcoming Encounters Date Type Department Care Team (Late st Contact Info) Description 08/27/2023 11:00 AM EST Hem/Onc Treatment Hematology/Oncology [address], [address] [phone] [place], Chair 3 Hem On[address] [place] [address] 08/28/2023 11:30 AM EST Hem/Onc Treatment Hematology/Oncology Treatment, [address] [address] [place], Chair 4 Hem Onc Scenery [address] [place] [address] [place] [address] 08/29/2023 11:00 AM EST Hem/Onc Treatment Hematology/Oncology Treatment, [address] [address] [place], Chair 9 Hem Onc Scenery 200 [facility] [place] [address] 08/30/2023 11:45 AM EST Hem/Onc Treatment Hematology/Oncology Treatment, [address] [phone] [place], Chair 2 Hem Onc [facility] 200 [facility] [place] [address] 09/12/2023 1:00 PM EDT Nurse Only Pulmonary Medicine, [facility] [address] Gw, Nurse Pulmonary [facility] [address] 10/19/2023 11:15 AM EDT Office Visit Otol[facility] 132 [facility] [place] [address] Martita Gaston MD 132 [place] [place] [address] 11/14/2023 3:00 PM EDT Office Visit Family Medicine [address] [phone] Ruel Fajardo MD [address] [place] [address] [place] [address] 11/20/2023 1:30 PM EDT Office Visit Allergy/Immunology [facility] [place] 200 [facility] [place] [address] Adriel Montalvo MD 200 [facility] [place] [address] 07/25/2024 1:40 PM EST Office Visit Neurology [facility] [place] 200 [facility] [place] [address] John Dodge DO 200 [facility] [place] [address] Scheduled Procedures Name Priority Associated Diagnoses Date/Ti [...] D LEVEL ONCE IN A LIFETIME-USE SMARTSET# 76018 Completed 11/18/2020 Influenza Vaccine (FLU shot) Completed [...] polyneuritis documented in this encounter Administered Medications Inactive Administered Medications - up to 3 most recent administrations Medication Order MAR Action Action Date Dose Rate Site Acetaminophen (Tylenol) tab 650 mg 650 mg, Oral, ONCE, On Sun07/03/23 at 1445, For 1 dose, Maximum of 4 grams (4000 mg) per day. Given 07/03/2023 1:47 PM EST 650 mg diphenhydrAMINE (Benadryl) cap 25 mg 25 mg, Oral, ONCE, On Sun07/03/23 at 1445, For 1 dose Given 07/03/2023 1:47 PM EST 25 mg hEParin 100 UNIT/ML Lock Flush inj 500 Units 500 Units (5 mL), IV Lock, PRN Other, IV Flush, Starting on Sun07/03/23 at 1340, Until Sun07/03/23 at 2031, For 24 hours, Do not flush if lock, PICC, or central line not in place; IV infusing or unable to flush. Given 07/03/2023 3:57 PM EST 500 Units Immune Globulin Human-IVIG 10% (Privigen) IV 40 g 40 g, IV Piggyback, ONCE, 1 dose, On Sun07/03/23 at 1515, Total dose = 45 gm Dispensed as [...] Infusion duration = 1.8 hours Rate Change 07/03/2023 3:00 PM EST 423 mL/hr Start Infusion 07/03/2023 2:46 PM EST 40 g 212 mL/hr Immune Globulin Human-IVIG 10% (Privigen) IV 5 g 5 g, IV Piggyback, ONCE, 1 dose, On Sun07/03/23 at 1445, Total dose = 45 gm Dispensed as [...] Infusion duration = 1.8 hours Rate Change 07/03/2023 2:45 PM EST 212 mL/hr Rate Change 07/03/2023 2:30 PM EST 106 mL/hr Rate Change 07/03/2023 2:15 PM EST 53 mL/hr NSS infusion 500 mL, Intravenous, at 50 mL/hr, CONTINUOUS, Starting on Sun07/03/23 at 1445, Until Sun07/03/23 at 2030 Start Infusion 07/03/2023 1:40 PM EST 500 mL 50 mL/hr sodium chloride 0.9 % flush central line 10 mL 10 mL, IV Push, PRN Other, IV Flush, Starting on Sun07/03/23 at 1340, Until Sun07/03/23 at 2030, For 24 hours, Do not flush if lock, PICC, or central line not in place; IV infusing or unable to flush. Given 07/03/2023 3:57 PM EST 10 mL documented in this encounter Care Teams Social Sciences Department Chair Relationship Specialty Start Date End Date Ruel Fajardo MD [address] [place] [address] [place] [address] PCP - General Family Medicine 10/17/19 documented as of this encounter
--- OUTSIDE RECORDS SUMMARY | 2023-09-12 10:41 | External Medical Summary | Summary of Care ---
Author Name Unknown Organization [facility] Address [address] [facility] [place] [address] Phone [phone] Care Team Providers Care Grain Weigher Name Role Phone Ruel Fajardo MD Primary Care Provide r Reason for Visit * Reason Comments IV Therapy Privigen. * Episode Based Medications (Routine) - Authorized Specialty Diagnoses / Procedures Referred By Contac t Referred To Contact Diagnoses CIDP (chronic inflammatory demyelinating polyneuropathy) ([facility]) Procedures AR INJ IVIG PRIVIGEN 500 MG John Dodge, DO [address] [place] [address] Anc Hem/Onc Joesph Harmon DEPT CLOSED - 05/08/23 [address] [place] [address] Referral ID Status Reason Start Date Expiration Date V isits Requested Visits Authorized [id number] Authorized 03/16/2023 03/16/2024 999 999 Encounter Details Date Type Department Care Team (Latest Contact Info) Description 07/02/2023 11:00 AM EST Hem/Onc Treatment Hematology/Oncolog y Treatment, [facility] [address] [place] [address] [place], Chair 8 Hem Onc Scenery [address] [place] [address] CIDP (chronic inflammatory demyelinating polyneuropathy) ([facility])* Allergies Active Allergy Reactions Criticality [...] Recomb Adjuvanted 50 MCG/0.5ML Intramuscular Suspension Reconstituted (Shingrix)Jefferyti ons:Need for shingles vaccine Inject 0.5 mL into a large muscle now and repeat dose in 60 to 180 days 1 Each 1 1 Active DULoxetine HCl 60 MG Oral Capsule Delayed Release Particles (Cymbalta)Jefferyti ons:Low back pain without sciatica, unspecified back pain laterality, unspecified chronicity Take 1 Cap by mouth daily. Do not cut, crush or chew 30 Cap 2 1 Active Meloxicam 7.5 MG Oral Tablet Take 1 Tab by mouth daily. 30 Tab 5 1 Active Vitamin B-2 100 MG Oral Tablet (vitamin B-2)Indications:CI DP (chronic inflammatory demyelinating polyneuropathy) (HCC) Take by mouth 4 Tablets in the morning. 120 Tablet 3 2 Active Wixela Inhub 500-50 MCG/ACT Inhalation Aerosol Powder Breath Activated (Fluticasone-Salme terol)Indications: Severe persistent asthma without complication INHALE ONE PUFF BY MOUTH TWICE DAILY 180 Each 3 2 Active Atorvastatin Calcium 10 MG Oral Tablet (Lipitor)Rhea ns:Mixed hyperlipidemia Take by mouth 1 Tablet in the morning. 30 Tablet 2 2 Active Gabapentin 100 MG Oral Capsule (Neurontin)Indicat ions:CIDP (chronic inflammatory demyelinating polyneuropathy) ([facility]) 3 tabs at bedtime 90 [...] Respimat 2.5 MCG/ACT Inhalation Aerosol Solution (Tiotropium [place] Monohydrate)Indica tions:Severe persistent asthma without complication Inhale [...] 100 mgIndications:Eosinophi lic asthma 100 mg SC [id number] 05/22/2023 04/22/2024 Active documented as of this [...] Sign Reading Time Taken Comments Blood Pressure 133/74 07/02/2023 11:00 AM EST Pulse 90 07/02/2023 11:00 AM EST Temperature 36.4 C (97.5 F) 07/02/2023 11:[address] Respiratory Rate 18 07/02/2023 11:00 AM EST Oxygen Saturation 92% 07/02/2023 11:00 AM EST Inhaled Oxygen Concentration - - Weight 108 kg (238 lb 3.2 oz) 07/02/2023 11:00 A M EST Height - - Body Mass Index 33.22 03/12/2023 1:01 PM EDT documented in this encounter Nursing Notes * Araceli Luong RN - 07/02/2023 1:25 PM EST Goals: Patient will remain free from injury. Possible barriers to meeting goals: Fall risk d/t ambulation with IV pole. Stability of the patient: Moderately stable - low risk of patient condition declining or worsening Summary regarding today's goals: Met: Patient remained free of injury. Patient left peripheral IV for tomorrows treatment. Positive blood return, flushed with NSS and heparin., Patient tolerated procedure well. Discharged in stable condition. * Araceli Luong RN - 07/02/2023 11:16 AM EST Chair 8. Patient arrived for privigen treatment with no complaints. Safety and Risk for Injury Patient will remain free from injury. Ensure appropriate safety devices are available. Provide and maintain safe environment. documented in this encounter Plan of Treatment Upcoming Encounters Date Type Department Care Team (Late st Contact Info) Description 08/27/2023 11:00 AM EST Hem/Onc Treatment Hematology/[address], [address] [phone] [place], Chair 3 Hem Onc Scenery 200 [facility] [place] [address] 08/28/2023 11:30 AM EST Hem/Onc Treatment Hematology/Oncology Treatment, [address] [address] [place], Chair 4 Hem Onc Scenery 200 [facility] [place] [address] 08/29/2023 11:00 AM EST Hem/Onc Treatment Hematology/Oncology Treatment, [address] [address] [place], Chair 9 Hem Onc Scenery 200 [facility] [place] [address] 08/30/2023 11:45 AM EST Hem/Onc Treatment Hematology/Oncology Treatment, [place] [address] [facility] [address] [place] [phone] [place], Chair 2 Hem Onc [address] [place] [address] 09/12/2023 1:00 PM EDT Nurse Only Pulmonary Medicine, [facility] 132 [facility] [place] [address] Gw, Nurse Pulmonary 132 [facility] [place] [address] 10/19/2023 11:15 AM EDT Office Visit Otolaryngology [facility] 132 [facility] [place] [address] Martita Gaston MD 132 [place] [address] 11/14/2023 3:00 PM EDT Office Visit Family Medicine [address] [phone] Ruel Fajardo MD [address] [place] [address] [place] [address] 11/20/2023 1:30 PM EDT Office Visit Allergy/Immunology [facility] [place] 200 [facility] [place] [address] Adriel Montalvo MD 200 [facility] [place] [address] 07/25/2024 1:40 PM EST Office Visit Neurology [facility] [place] 200 [facility] [place] [address] John Dodge DO 200 [facility] [place] [address] Scheduled Procedures Name Priority Associated Diagnoses Date/Ti [...] D LEVEL ONCE IN A LIFETIME-USE SMARTSET# 64031 Completed 11/18/2020 Influenza Vaccine (FLU shot) Completed [...] Diagnoses Diagnosis CIDP (chronic inflammatory demyelinating polyneuropathy) ([facility])- Primary Chronic inflammatory demyelinating polyneuritis documented in this encounter Administered Medications Inactive Administered Medications - up to 3 most recent administrations Medication Order MAR Action Action Date Dose Rate Site Acetaminophen (Tylenol) tab 650 mg 650 mg, Oral, ONCE, On Sun07/02/23 at 1215, For 1 dose, Maximum of 4 grams (4000 mg) per day. Given 07/02/2023 11:11 AM EST 650 mg diphenhydrAMINE (Benadryl) cap 25 mg 25 mg, Oral, ONCE, On Sun07/02/23 at 1215, For 1 dose Given 07/02/2023 11:11 AM EST 25 mg hEParin 100 UNIT/ML Lock Flush inj 500 Units 500 Units (5 mL), IV Lock, PRN Other, IV Flush, Starting on Sun07/02/23 at 1107, Until Sun07/02/23 at 1729, For 24 hours, Do not flush if lock, PICC, or central line not in place; IV infusing or unable to flush. Given 07/02/2023 1:18 PM EST 500 Units Immune Globulin Human-IVIG 10% (Privigen) IV 40 g 40 g, IV Piggyback, ONCE, 1 dose, On Sun07/02/23 at 1245, Total dose = 45 gm [...] Infusion duration = 1.8 hours Rate Change 07/02/2023 12:25 PM EST 423 mL/hr Start Infusion 07/02/2023 12:10 PM EST 40 g 212 mL/h r Immune Globulin Human-IVIG 10% (Privigen) IV 5 g 5 g, IV Piggyback, ONCE, 1 dose, On Sun07/02/23 at 1215, Total dose = 45 gm [...] Infusion duration = 1.8 hours Rate Change 07/02/2023 11:55 AM EST 106 mL/hr Rate Change 07/02/2023 11:40 AM EST 53 mL/hr Start Infusion 07/02/2023 11:25 AM EST 5 g 26 mL/hr NSS infusion 500 mL, Intravenous, at 50 mL/hr, CONTINUOUS, Starting on Sun07/02/23 at 1215, Until Sun07/02/23 at 1729 Start Infusion 07/02/2023 11:05 AM EST 500 mL 50 mL/hr sodium chloride 0.9 % flush central line 10 mL 10 mL, IV Push, PRN Other, IV Flush, Starting on Sun07/02/23 at 1107, Until Sun07/02/23 at 1729, For 24 hours, Do not flush if lock, PICC, or central line not in place; IV infusing or unable to flush. Given 07/02/2023 1:18 PM EST 10 mL documented in this encounter Care Teams Grain Weigher Relationship Specialty Start Date End Date Rule Fajardo MD [address] [place] [address] [place] [address] PCP - General Family Medicine 10/17/19 documented as of this encounter
--- OUTSIDE RECORDS SUMMARY | 2023-09-12 10:41 | External Medical Summary | Summary of Care ---
Author Name Unknown Organization [facility] Address [address] [facility] [place] [address] Phone [phone] Care Team Providers Care Box Truck Washer Name Role Phone Ruel Fajardo MD Primary Care Provide r Reason for Visit * Reason Comments IV Therapy Privigen. * Episode Based Medications (Routine) - Authorized Specialty Diagnoses / Procedures Referred By Contac t Referred To Contact Diagnoses CIDP (chronic inflammatory demyelinating polyneuropathy) ([facility]) Procedures [place] INJ IVIG PRIVIGEN 500 MG John Dodge, DO [address] [place] [address] Anc Hem/Onc Joesph Harmon DEPT CLOSED - 05/08/23 [address] [place] [address] Referral ID Status Reason Start Date Expiration Date V isits Requested Visits Authorized [id number] Authorized 03/16/2023 03/16/2024 999 999 Encounter Details Date Type Department Care Team (Latest Contact Info) Description 07/02/2023 11:00 AM EST Hem/Onc Treatment Hematology/Oncolog y Treatment, [facility] [address] [place] [address] [place], Chair 8 Hem Onc Scenery [address] [place] [address] CIDP (chronic inflammatory demyelinating polyneuropathy) ([facility])* Allergies Active Allergy Reactions Criticality Noted [...] ions:CIDP (chronic inflammatory demyelinating polyneuropathy) ([facility]) 3 tabs at bedtime 90 Capsule [...] Respimat 2.5 MCG/ACT Inhalation Aerosol Solution (Tiotropium [place] Monohydrate)Indica tions:Severe persistent asthma without complication Inhale [...] 100 mgIndications:Eosinophi lic asthma 100 mg SC [id number] 05/22/2023 04/22/2024 Active documented as of this [...] 11:00 AM EST Hem/Onc Treatment Hematology/Oncology Treatment, [address] [phone] [place], Chair 3 Hem Onc Scenery 200 [facility] [place] [address] 08/28/2023 11:30 AM EST Hem/Onc Treatment Hematology/Oncology Treatment, [address] [address] [place], Chair 4 Hem Onc Scenery 200 [facility] [place] [address] 08/29/2023 11:00 AM EST Hem/Onc Treatment Hematology/Oncology Treatment, [address] [address] [place], Chair 9 Hem Onc Scenery 200 [facility] [place] [address] 08/30/2023 11:45 AM EST Hem/Onc Treatment Hematology/Oncology Treatment, [place] [address] [facility] [address] [place] [phone] [place], Chair 2 Hem Onc [address] [place] [address] 09/12/2023 1:00 PM EDT Nurse Only Pulmonary Medicine, [facility] 132 [facility] [place] [address] Gw, Nurse Pulmonary 132 [facility] [place] [address] 10/19/2023 11:15 AM EDT Office Visit Otolaryngology [facility] 132 [facility] [place] [address] Martita Gaston MD 132 [facility] [place] [address] 11/14/2023 3:00 PM EDT Office Visit Family Medicine [address] [phone] Ruel Fajardo MD [address] [place] [address] [place] [address] 11/20/2023 1:30 PM EDT Office Visit Allergy/Immunology [facility] [place] 200 [facility] [place] [address] Adriel Montalvo MD 200 [facility] [place] [address] 07/25/2024 1:40 PM EST Office Visit Neurology [facility] [place] 200 [facility] [place] [address] John Dodge DO 200 [facility] [place] [address] Scheduled Procedures Name Priority Associated Diagnoses Date/Ti [...] D LEVEL ONCE IN A LIFETIME-USE SMARTSET# [id number] Completed 11/18/2020 Influenza Vaccine (FLU shot) Completed [...] Diagnoses Diagnosis CIDP (chronic inflammatory demyelinating polyneuropathy) ([facility])- Primary Chronic inflammatory demyelinating polyneuritis documented [...] mL documented in this encounter Care Teams Box Truck Washer Relationship Specialty Start Date End Date Ruel Fajardo MD [address] [place] [address] [place] [address] PCP - General Family Medicine 10/17/19 documented as of this encounter
--- OUTSIDE RECORDS SUMMARY | 2023-09-12 10:41 | External Medical Summary | Summary of Care ---
Author Name Unknown Organization [facility] Address [address] [facility] [place] [address] Phone [phone] Care Team Providers Care Business Programmer Name Role Phone Ruel Fajardo MD Primary Care Provide r Reason for Visit * Reason Comments IV Therapy Privigen. * Episode Based Medications (Routine) - Authorized Specialty Diagnoses / Procedures Referred By Contac t Referred To Contact Diagnoses CIDP (chronic inflammatory demyelinating polyneuropathy) ([facility]) Procedures [place] INJ IVIG PRIVIGEN 500 MG John Dodge, DO [address] [place] [address] Anc Hem/Onc Joesph Harmon DEPT CLOSED - 05/08/23 [address] [place] [address] Referral ID Status Reason Start Date Expiration Date V isits Requested Visits Authorized [id number] Authorized 03/16/2023 03/16/2024 999 999 Encounter Details Date Type Department Care Team (Latest Contact Info) Description 07/04/2023 11:00 AM EST Hem/Onc Treatment Hematology/Oncolog y Treatment, [facility] [address] [place] [address] [place], Chair 3 Hem Onc Scenery [address] [place] [id number] CIDP (chronic inflammatory demyelinating polyneuropathy) ([facility])* Allergies Active Allergy Reactions Criticality [...] Capsule (Neurontin)Indicat ions:CIDP (chronic inflammatory demyelinating polyneuropathy) ([facility]) 3 tabs at bedtime 90 [...] Respimat 2.5 MCG/ACT Inhalation Aerosol Solution (Tiotropium [place] Monohydrate)Indica tions:Severe persistent asthma without complication Inhale [...] 100 mgIndications:Eosinophi lic asthma 100 mg SC [id number] 05/22/2023 04/22/2024 Active documented as of this [...] Sign Reading Time Taken Comments Blood Pressure 133/77 07/04/2023 11:05 AM EST Pulse 78 07/04/2023 11:05 AM EST Temperature 36.8 C (98.2 F) 07/04/2023 11:[address] Respiratory Rate 18 07/04/2023 11:05 AM EST Oxygen Saturation 94% 07/04/2023 11:05 AM EST Inhaled Oxygen Concentration - - Weight - - Height - - Body Mass Index - - documented in this encounter Nursing Notes * Araceli Luong RN - 07/04/2023 1:41 PM EST Goals: Patient will remain free from injury. Possible barriers to meeting goals: Fall risk d/t ambulation with IV pole. Stability of the patient: Moderately stable - low risk of patient condition declining or worsening Summary regarding today's goals: Met: Patient remained free of injury. Patient keeping peripheral IV in place for tomorrows treatment. Patient tolerated procedure well. Discharged in stable condition. * Araceli Luong RN - 07/04/2023 12:40 PM EST Chair 4. Patient arrived for privigen treatment with ni complaints. Right forearm peripheral IV still in place and patent. Safety and Risk for Injury Patient will remain free from injury. Ensure appropriate safety devices are available. Provide and maintain safe environment. documented in this encounter Plan of Treatment Upcoming Encounters Date Type Department Care Team (Late st Contact Info) Description 08/27/2023 11:00 AM EST Hem/Onc Treatment Hematology/Oncology Treatment, [address] [phone] [place], Chair 3 Hem On[address] [place] [address] 08/28/2023 11:30 AM EST Hem/Onc Treatment Hematology/Oncology Treatment, [address] [address] [place], Chair 4 Hem Onc Scenery [address] [place] [address] [place] [address] 08/29/2023 11:00 AM EST Hem/Onc Treatment Hematology/Oncology Treatment, [address] [address] [place], Chair 9 Hem Onc Scenery [address] [place] [address] [place] [address] 08/30/2023 11:45 AM EST Hem/Onc Treatment Hematology/Oncology Treatment, [address] [phone] [place], Chair 2 Hem Onc [facility] 200 [facility] [place] [address] 09/12/2023 1:00 PM EDT Nurse Only Pulmonary Medicine, [facility] [address] Gw, Nurse Pulmonary 132 [facility] [place] [address] 10/19/2023 11:15 AM EDT Office Visit Otolaryngology [facility] 132 [facility] [place] [address] Martita Gaston MD 132 [facility] [place] [address] 11/14/2023 3:00 PM EDT Office Visit Family Medicine [address] [phone] Ruel Fajardo MD [address] [place] [address] [place] [address] 11/20/2023 1:30 PM EDT Office Visit Allergy/Immunology [facility] [place] 200 [facility] [place] [address] Adriel Montalvo MD 200 [facility] [place] [address] 07/25/2024 1:40 PM EST Office Visit Neurology [facility] [place] 200 [facility] [place] [address] John Dodge, [address] [place] [address] [place] [address] Scheduled Procedures Name Priority Associated Diagnoses Date/Ti [...] D LEVEL ONCE IN A LIFETIME-USE SMARTSET# [id number] Completed 11/18/2020 Influenza Vaccine (FLU shot) Completed [...] Diagnoses Diagnosis CIDP (chronic inflammatory demyelinating polyneuropathy) ([facility])- Primary Chronic inflammatory demyelinating polyneuritis documented in this encounter Administered Medications Inactive Administered Medications - up to 3 most recent administrations Medication Order MAR Action Action Date Dose Rate Site Acetaminophen (Tylenol) tab 650 mg 650 mg, Oral, ONCE, On Sun07/04/23 at 1215, For 1 dose, Maximum of 4 grams (4000 mg) per day. Given 07/04/2023 11:16 AM EST 650 mg diphenhydrAMINE (Benadryl) cap 25 mg 25 mg, Oral, ONCE, On Sun07/04/23 at 1215, For 1 dose Given 07/04/2023 11:16 AM EST 25 mg hEParin 100 UNIT/ML Lock Flush inj 500 Units 500 Units (5 mL), IV Lock, PRN Other, IV Flush, Starting on Sun07/04/23 at 1110, Until Sun07/04/23 at 1450, For 24 hours, Do not flush if lock, PICC, or central line not in place; IV infusing or unable to flush. Given 07/04/2023 1:33 PM EST 500 Units Immune Globulin Human-IVIG 10% (Privigen) IV 40 g 40 g, IV Piggyback, ONCE, 1 dose, On Sun07/04/23 at 1245, Total dose = 45 gm [...] Infusion duration = 1.8 hours Rate Change 07/04/2023 12:40 PM EST 423 mL/hr Start Infusion 07/04/2023 12:21 PM EST 40 g 212 mL/h r Immune Globulin Human-IVIG 10% (Privigen) IV 5 g 5 g, IV Piggyback, ONCE, 1 dose, On Sun07/04/23 at 1215, Total dose = 45 gm [...] Infusion duration = 1.8 hours Rate Change 07/04/2023 12:05 PM EST 106 mL/hr Rate Change 07/04/2023 11:50 AM EST 53 mL/hr Start Infusion 07/04/2023 11:33 AM EST 5 g 26 mL/hr NSS infusion 500 mL, Intravenous, at 50 mL/hr, CONTINUOUS, Starting on Sun07/04/23 at 1215, Until Sun07/04/23 at 1450 Start Infusion 07/04/2023 11:14 AM EST 500 mL 50 mL/hr sodium chloride 0.9 % flush central line 10 mL 10 mL, IV Push, PRN Other, IV Flush, Starting on Sun07/04/23 at 1110, Until Sun07/04/23 at 1450, For 24 hours, Do not flush if lock, PICC, or central line not in place; IV infusing or unable to flush. Given 07/04/2023 1:33 PM EST 10 mL documented in this encounter Care Teams Business Programmer Relationship Specialty Start Date End Date Ruel Fajardo MD [address] [place] [address] [phone] PCP - General Family Medicine 10/17/19 documented as of this encounter
--- OUTSIDE RECORDS SUMMARY | 2023-09-12 10:41 | External Medical Summary | Summary of Care ---
Author Name Unknown Organization [facility] Address [address] [facility] [place] [address] Phone [phone] Care Team Providers Care Cyber Policy And Strategy Planner Name Role Phone Ruel Fajardo MD Primary Care Provide r Reason for Visit * Reason Comments IV Therapy Privigen. * Episode Based Medications (Routine) - Authorized Specialty Diagnoses / Procedures Referred By Contac t Referred To Contact Diagnoses CIDP (chronic inflammatory demyelinating polyneuropathy) ([facility]) Procedures [place] INJ IVIG PRIVIGEN 500 MG John Dodge, DO [address] [place] [address] Anc Hem/Onc Joesph Harmon DEPT CLOSED - 05/08/23 [address] [place] [address] Referral ID Status Reason Start Date Expiration Date V isits Requested Visits Authorized [id number] Authorized 03/16/2023 03/16/2024 999 999 Encounter Details Date Type Department Care Team (Latest Contact Info) Description 07/04/2023 11:00 AM EST Hem/Onc Treatment Hematology/Oncolog y Treatment, [facility] [address] [place] [address] [place], Chair 3 Hem Onc Scenery [address] [place] [address] CIDP (chronic inflammatory demyelinating polyneuropathy) ([facility])* Allergies Active Allergy Reactions Criticality Noted [...] Capsule (Neurontin)Indicat ions:CIDP (chronic inflammatory demyelinating polyneuropathy) ([facility]) 3 tabs at bedtime 90 Capsule [...] Respimat 2.5 MCG/ACT Inhalation Aerosol Solution (Tiotropium [place] Monohydrate)Indica tions:Severe persistent asthma without complication Inhale [...] 100 mgIndications:Eosinophi lic asthma 100 mg SC [id number] 05/22/2023 04/22/2024 Active documented as of this [...] 11:00 AM EST Hem/Onc Treatment Hematology/Oncology Treatment, [address] [phone] [place], Chair 3 Hem Onc [address] [place] [address] 08/28/2023 11:30 AM EST Hem/Onc Treatment Hematology/Oncology Treatment, [address] [address] [place], Chair 4 Hem Onc Scenery [address] [place] [address] [place] [address] 08/29/2023 11:00 AM EST Hem/Onc Treatment Hematology/Oncology Treatment, [address] [address] [place], Chair 9 Hem Onc Scenery [address] [place] [address] [place] [address] 08/30/2023 11:45 AM EST Hem/Onc Treatment Hematology/Oncology Treatment, [address] [phone] [place], Chair 2 Hem Onc [facility] 200 [facility] [place] [address] 09/12/2023 1:00 PM EDT Nurse Only Pulmonary Medicine, [facility] 132 [facility] [address] Gw, Nurse Pulmonary 132 [facility] [place] [address] 10/19/2023 11:15 AM EDT Office Visit Otolaryngology [facility] 132 [facility] [place] [address] Martita Gaston MD 132 [facility] [place] [address] 11/14/2023 3:00 PM EDT Office Visit Family Medicine [address] [phone] Ruel Fajardo MD [address] [place] [address] [place] [address] 11/20/2023 1:30 PM EDT Office Visit Allergy/Immunology [facility] [place] 200 [facility] [place] [address] Adriel Montalvo MD 200 [facility] [place] [address] 07/25/2024 1:40 PM EST Office Visit Neurology [facility] [place] 200 [facility] [place] [address] John Dodge, [address] [place] [address] [place] [address] Scheduled Procedures Name Priority Associated Diagnoses Date/Ti [...] D LEVEL ONCE IN A LIFETIME-USE SMARTSET# [id number] Completed 11/18/2020 Influenza Vaccine (FLU shot) Completed [...] Diagnoses Diagnosis CIDP (chronic inflammatory demyelinating polyneuropathy) ([facility])- Primary Chronic inflammatory demyelinating polyneuritis documented [...] mL documented in this encounter Care Teams Cyber Policy And Strategy Planner Relationship Specialty Start Date End Date Ruel Fajardo MD [address] [place] [address] [place] [phone] PCP - General Family Medicine 10/17/19 documented as of this encounter
--- OUTSIDE RECORDS SUMMARY | 2023-09-12 10:41 | External Medical Summary | Summary of Care ---
Author Name Unknown Organization [facility] Address [address] [facility] [place] [address] Phone [phone] Care Team Providers Care Coal Equipment Operator Name Role Phone Ruel Fajardo MD Primary Care Provide r Reason for Visit * Reason Comments IV Therapy Privigen. * Episode Based Medications (Routine) - Authorized Specialty Diagnoses / Procedures Referred By Contac t Referred To Contact Diagnoses CIDP (chronic inflammatory demyelinating polyneuropathy) ([facility]) Procedures [place] INJ IVIG PRIVIGEN 500 MG John Dodge, DO [address] [place] [address] Anc Hem/Onc Joesph Harmon DEPT CLOSED - 05/08/23 [address] [place] [address] Referral ID Status Reason Start Date Expiration Date V isits Requested Visits Authorized [id number] Authorized 03/16/2023 03/16/2024 999 [id number] Encounter Details Date Type Department Care Team (Latest Contact Info) Description 07/02/2023 11:00 AM EST Hem/Onc Treatment Hematology/Oncolog y Treatment, [facility] [address] [place] [address] [place], Chair 8 Hem Onc Scenery [address] [place] [address] CIDP (chronic inflammatory demyelinating polyneuropathy) ([facility])* Allergies Active Allergy Reactions Criticality [...] ions:CIDP (chronic inflammatory demyelinating polyneuropathy) ([facility]) 3 tabs at bedtime 90 [...] Respimat 2.5 MCG/ACT Inhalation Aerosol Solution (Tiotropium [place] Monohydrate)Indica tions:Severe persistent asthma without complication Inhale [...] 100 mgIndications:Eosinophi lic asthma 100 mg SC [id number] 05/22/2023 04/22/2024 Active documented as of this [...] 11:00 AM EST Hem/Onc Treatment Hematology/Oncology Treatment, [address] [phone] [place], Chair 3 Hem Onc Scenery 200 [facility] [place] [address] 08/28/2023 11:30 AM EST Hem/Onc Treatment Hematology/Oncology Treatment, [address] [address] [place], Chair 4 Hem Onc Scenery 200 [facility] [place] [address] 08/29/2023 11:00 AM EST Hem/Onc Treatment Hematology/Oncology Treatment, [address] [address] [place], Chair 9 Hem Onc Scenery 200 [facility] [place] [address] 08/30/2023 11:45 AM EST Hem/Onc Treatment Hematology/Oncology Treatment, [place] [address] [facility] [address] [place] [phone] [place], Chair 2 Hem Onc [address] [place] [address] 09/12/2023 1:00 PM EDT Nurse Only Pulmonary Medicine, [facility] 132 [facility] [place] [address] Gw, Nurse Pulmonary 132 [facility] [place] [address] 10/19/2023 11:15 AM EDT Office Visit Otolaryngology [facility] 132 [facility] [place] [address] Martita Gaston MD 132 [place] [address] 11/14/2023 3:00 PM EDT Office Visit Family Medicine [address] [phone] Ruel Fajardo MD [address] [place] [address] [place] [address] 11/20/2023 1:30 PM EDT Office Visit Allergy/Immunology [facility] [place] 200 [facility] [place] [address] Adriel Montalvo MD 200 [facility] [place] [address] 07/25/2024 1:40 PM EST Office Visit Neurology [facility] [place] 200 [facility] [place] [address] John Dodge DO 200 [facility] [place] [address] Scheduled Procedures Name Priority Associated Diagnoses Date/Ti [...] D LEVEL ONCE IN A LIFETIME-USE SMARTSET# [id number] Completed 11/18/2020 Influenza Vaccine (FLU shot) Completed [...] CIDP (chronic inflammatory demyelinating polyneuropathy) ([facility])- Primary Chronic inflammatory demyelinating polyneuritis [...] mL documented in this encounter Care Teams Coal Equipment Operator Relationship Specialty Start Date End Date Ruel Fajardo MD [address] [place] [address] [place] [phone] PCP - General Family Medicine 10/17/19 documented as of this encounter
--- OUTSIDE RECORDS SUMMARY | 2023-09-12 10:41 | External Medical Summary | Summary of Care ---
Author Name Unknown Organization [facility] Address [address] [facility] [place] [address] Phone [phone] Care Team Providers Care Farmhand Name Role Phone Ruel Fajardo MD Primary Care Provide r Reason for Visit * Reason Comments IV Therapy Privigen. * Episode Based Medications (Routine) - Authorized Specialty Diagnoses / Procedures Referred By Contac t Referred To Contact Diagnoses CIDP (chronic inflammatory demyelinating polyneuropathy) ([facility]) Procedures [place] INJ IVIG PRIVIGEN 500 MG John Dodge, DO [address] [place] [address] Anc Hem/Onc Joesph Harmon DEPT CLOSED - 05/08/23 [address] [place] [address] Referral ID Status Reason Start Date Expiration Date V isits Requested Visits Authorized [id number] Authorized 03/16/2023 03/16/2024 999 [id number] Encounter Details Date Type Department Care Team (Latest Contact Info) Description 07/04/2023 11:00 AM EST Hem/Onc Treatment Hematology/Oncolog y Treatment, [place] [facility] [address] [place] [address] [place], Chair 3 Hem Onc Scenery [address] [place] [address] CIDP (chronic inflammatory demyelinating polyneuropathy) ([facility])* Allergies Active Allergy Reactions Criticality Noted Date [...] Capsule (Neurontin)Indicat ions:CIDP (chronic inflammatory demyelinating polyneuropathy) ([facility]) 3 tabs at bedtime 90 Capsule [...] Respimat 2.5 MCG/ACT Inhalation Aerosol Solution (Tiotropium [place] Monohydrate)Indica tions:Severe persistent asthma without complication Inhale [...] 100 mgIndications:Eosinophi lic asthma 100 mg SC [id number] 05/22/2023 04/22/2024 Active documented as of this [...] procedure well. Discharged in stable condition. * Aarceli Luong RN - 07/04/2023 12:40 PM EST [...] 11:00 AM EST Hem/Onc Treatment Hematology/Oncology Treatment, [address] [phone] [place], Chair 3 Hem On[address] [place] [address] 08/28/2023 11:30 AM EST Hem/Onc Treatment Hematology/Oncology Treatment, [address] [address] [place], Chair 4 Hem Onc Scenery [address] [place] [address] [place] [address] 08/29/2023 11:00 AM EST Hem/Onc Treatment Hematology/Oncology Treatment, [address] [address] [place], Chair 9 Hem Onc Scenery [address] [place] [address] [place] [address] 08/30/2023 11:45 AM EST Hem/Onc Treatment Hematology/Oncology Treatment, [address] [phone] [place], Chair 2 Hem Onc [facility] 200 [facility] [place] [address] 09/12/2023 1:00 PM EDT Nurse Only Pulmonary Medicine, [facility] [address] Gw, Nurse Pulmonary 132 [facility] [place] [address] 10/19/2023 11:15 AM EDT Office Visit Otolaryngology [facility] 132 [facility] [place] [address] Martita Gaston MD 132 [facility] [address] 11/14/2023 3:00 PM EDT Office Visit Family Medicine [address] [phone] Ruel Fajardo MD [address] [place] [address] [place] [id number] 11/20/2023 1:30 PM EDT Office Visit Allergy/Immunology [facility] [place] 200 [facility] [place] [address] Adriel Montalvo MD 200 [facility] [place] [address] 07/25/2024 1:40 PM EST Office Visit Neurology [facility] [place] 200 [facility] [place] [address] John Dodge, [address] [place] [address] [place] [address] Scheduled Procedures Name Priority Associated Diagnoses Date/Ti [...] D LEVEL ONCE IN A LIFETIME-USE SMARTSET# [id number] Completed 11/18/2020 Influenza Vaccine (FLU shot) Completed [...] Diagnoses Diagnosis CIDP (chronic inflammatory demyelinating polyneuropathy) ([facility])- Primary Chronic inflammatory demyelinating polyneuritis documented in [...] mL documented in this encounter Care Teams Farmhand Relationship Specialty Start Date End Date Ruel Fajardo MD [address] [place] [address] [place] [phone] PCP - General Family Medicine 10/17/19 documented as of this encounter
--- OUTSIDE RECORDS SUMMARY | 2023-09-12 10:41 | External Medical Summary | Summary of Care ---
Author Name Unknown Organization [facility] Address [address] [facility] [place] [address] Phone [phone] Care Team Providers Care Senior Asic Design Engineer Name Role Phone Ruel Fajardo MD Primary Care Provide r Reason for Visit * Reason Comments IV Therapy Privigen. * Episode Based Medications (Routine) - Authorized Specialty Diagnoses / Procedures Referred By Contac t Referred To Contact Diagnoses CIDP (chronic inflammatory demyelinating polyneuropathy) ([facility]) Procedures [place] INJ IVIG PRIVIGEN 500 MG John Dodge, DO [address] [place] [address] Anc Hem/Onc Joesph Harmon DEPT CLOSED - 05/08/23 [address] [place] [address] Referral ID Status Reason Start Date Expiration Date V isits Requested Visits Authorized [id number] Authorized 03/16/2023 03/16/2024 999 [id number] Encounter Details Date Type Department Care Team (Latest Contact Info) Description 07/04/2023 11:00 AM EST Hem/Onc Treatment Hematology/Oncolog y Treatment, [facility] [address] [place] [address] [place], Chair 3 Hem Onc Scenery [address] [place] [address] CIDP (chronic inflammatory demyelinating polyneuropathy) ([facility] Respimat 2.5 MCG/ACT Inhalation Aerosol Solution (Tiotropium [place] Monohydrate)Indica tions:Severe persistent asthma without complication Inhale [...] 100 mgIndications:Eosinophi lic asthma 100 mg SC [id number] 05/22/2023 04/22/2024 Active documented as of this [...] AM EST Hem/Onc Treatment Hematology/Oncology Treatment, [address] [phone] [place], Chair 3 Hem Onc [address] [place] [address] 08/28/2023 11:30 AM EST Hem/Onc Treatment Hematology/Oncology Treatment, [address] [address] [place], Chair 4 Hem Onc Scenery [address] [place] [address] [place] [address] 08/29/2023 11:00 AM EST Hem/Onc Treatment Hematology/Oncology Treatment, [address] [address] [place], Chair 9 Hem Onc Scenery [address] [place] [address] [place] [address] 08/30/2023 11:45 AM EST Hem/Onc Treatment Hematology/Oncology Treatment, [address] [phone] [place], Chair 2 Hem Onc [facility] 200 [facility] [place] [address] 09/12/2023 1:00 PM EDT Nurse Only Pulmonary Medicine, [facility] 132 [facility] [address] Gw, Nurse Pulmonary 132 [facility] [place] [address] 10/19/2023 11:15 AM EDT Office Visit Otolaryngology [facility] 132 [facility] [place] [address] Martita Gaston MD 132 [facility] [address] 11/14/2023 3:00 PM EDT Office Visit Family Medicine [address] [phone] Ruel Fajardo MD [address] [place] [address] [place] [address] 11/20/2023 1:30 PM EDT Office Visit Allergy/Immunology [facility] [place] 200 [facility] [place] [address] Adriel Montalvo MD 200 [facility] [place] [address] 07/25/2024 1:40 PM EST Office Visit Neurology [facility] [place] 200 [facility] [place] [address] John Dodge, [address] [place] [address] [place] [address] Scheduled Procedures Name Priority Associated Diagnoses Date/Ti [...] D LEVEL ONCE IN A LIFETIME-USE SMARTSET# [id number] Completed 11/18/2020 Influenza Vaccine (FLU shot) Completed [...] mL documented in this encounter Care Teams Senior Asic Design Engineer Relationship Specialty Start Date End Date Ruel Fajardo MD [address] [place] [address] [place] [phone] PCP - General Family Medicine 10/17/19 documented as of this encounter
--- OUTSIDE RECORDS SUMMARY | 2023-09-12 10:42 | External Medical Summary | Summary of Care ---
Author Name Unknown Organization [facility] Address [address] [facility] [place] [address] Phone [phone] Care Team Providers Care Promotional Marketing Analyst Name Role Phone Ruel Fajardo MD Primary Care Provide r Reason for Visit * Reason Comments IV Therapy Privigen. * Episode Based Medications (Routine) - Authorized Specialty Diagnoses / Procedures Referred By Contac t Referred To Contact Diagnoses CIDP (chronic inflammatory demyelinating polyneuropathy) ([facility]) Procedures [place] INJ IVIG PRIVIGEN 500 MG John Dodge, DO [address] [place] [address] Anc Hem/Onc Joesph Harmon DEPT CLOSED - 05/08/23 [address] [place] [address] Referral ID Status Reason Start Date Expiration Date V isits Requested Visits Authorized [id number] Authorized 03/16/2023 03/16/2024 999 [id number] Encounter Details Date Type Department Care Team (Latest Contact Info) Description 07/04/2023 11:00 AM EST Hem/Onc Treatment Hematology/Oncolog y Treatment, [facility] [address] [place] [address] [place], Chair 3 Hem Onc Scenery [address] [place] [address] CIDP (chronic inflammatory demyelinating polyneuropathy) ([facility])* Allergies Active Allergy Reactions Criticality Noted Date Comments Amoxicillin Rash 07/17/2011 documented as of this encounter (statuses as of 08/21/2023) Medications Medication Sig Dispensed Refills Start Date [...] Capsule (Neurontin)Indicat ions:CIDP (chronic inflammatory demyelinating polyneuropathy) ([facility]) 3 tabs at bedtime 90 Capsule 5 [...] Respimat 2.5 MCG/ACT Inhalation Aerosol Solution (Tiotropium [place] Monohydrate)Indica tions:Severe persistent asthma without complication Inhale [...] 100 mgIndications:Eosinophi lic asthma 100 mg SC [id number] 05/22/2023 04/22/2024 Active documented as of this encounter (statuses as of 08/21/2023) Active Problems Problem Noted Date Diagnosed Date [...] as of this encounter (statuses as of 08/21/2023) Resolved Problems Problem Noted Date Diagnosed Date Resolved Date Wedge compression fracture o f unspecified lumbar vertebra, initial encounter for closed fracture 09/06/2022 09/06/2022 Compression of lumbar vertebra 11/18/2020 01/20/2021 Asthma, moderate persistent 08/29/2011 10/16/2011 Asthma exacerbation 07/17/2011 05/13/20 12 documented as of this encounter (statuses as of 08/21/2023) Immunizations Name Administration Dates Next Due COVID-19 [...] 11:00 AM EST Hem/Onc Treatment Hematology/Oncology Treatment, [address] [phone] [place], Chair 3 Hem [address] [place] [address] 08/28/2023 11:30 AM EST Hem/Onc Treatment Hematology/Oncology Treatment, [address] [address] [place], Chair 4 Hem Onc Scenery [address] [place] [address] [place] [address] 08/29/2023 11:00 AM EST Hem/Onc Treatment Hematology/Oncology Treatment, [address] [address] [place], Chair 9 Hem Onc Scenery [address] [place] [address] [place] [address] 08/30/2023 11:45 AM EST Hem/Onc Treatment Hematology/Oncology Treatment, [address] [phone] [place], Chair 2 Hem Onc [facility] 200 [facility] [place] [address] 09/12/2023 1:00 PM EDT Nurse Only Pulmonary Medicine, [facility] 132 [facility] [address] Gw, Nurse Pulmonary 132 [facility] [place] [address] 10/19/2023 11:15 AM EDT Office Visit Otolaryngology [facility] 132 [facility] [place] [address] Martita Gaston MD 132 [facility] [place] [address] 11/14/2023 3:00 PM EDT Office Visit Family Medicine [address] [phone] Ruel Fajardo MD [address] [place] [address] [place] [address] 11/20/2023 1:30 PM EDT Office Visit Allergy/Immunology [facility] [place] 200 [facility] [place] [address] Adriel Montalvo MD 200 [facility] [place] [address] 07/25/2024 1:40 PM EST Office Visit Neurology [facility] [place] 200 [facility] [place] [address] John Dodge, [address] [place] [address] [place] [address] Scheduled Procedures Name Priority Associated Diagnoses Date/Ti [...] D LEVEL ONCE IN A LIFETIME-USE SMARTSET# [id number] Completed 11/18/2020 Influenza Vaccine (FLU shot) Completed [...] Diagnoses Diagnosis CIDP (chronic inflammatory demyelinating polyneuropathy) ([facility])- Primary Chronic inflammatory demyelinating polyneuritis documented in [...] mL documented in this encounter Care Teams Promotional Marketing Analyst Relationship Specialty Start Date End Date Ruel Fajardo MD [address] [place] [address] [place] [phone] PCP - General Family Medicine 10/17/19 documented as of this encounter
--- OUTSIDE RECORDS SUMMARY | 2023-09-12 10:42 | External Medical Summary | Summary of Care ---
Author Name Unknown Organization [facility] Address [address] [facility] [place] [address] Phone [phone] Care Team Providers Care Tie Mill Operator Name Role Phone Ruel Fajardo MD Primary Care Provide r Reason for Visit * Reason Comments IV Therapy Privigen. * Episode Based Medications (Routine) - Authorized Specialty Diagnoses / Procedures Referred By Contac t Referred To Contact Diagnoses CIDP (chronic inflammatory demyelinating polyneuropathy) ([facility]) Procedures [place] INJ IVIG PRIVIGEN 500 MG John Dodge, DO [address] [place] [address] Anc Hem/Onc Joesph Harmon DEPT CLOSED - 05/08/23 [address] [place] [address] Referral ID Status Reason Start Date Expiration Date V isits Requested Visits Authorized [id number] Authorized 03/16/2023 03/16/[phone] Encounter Details Date Type Department Care Team (Latest Contact Info) Description 07/04/2023 11:00 AM EST Hem/Onc Treatment Hematology/Oncolog y Treatment, [facility] [address] [place] [address] [place], Chair 3 Hem Onc Scenery [address] [place] [address] CIDP (chronic inflammatory demyelinating polyneuropathy) ([facility])* Allergies Active Allergy Reactions Criticality Noted [...] (Neurontin)Indicat ions:CIDP (chronic inflammatory demyelinating polyneuropathy) ([facility]) 3 tabs at bedtime 90 Capsule [...] Respimat 2.5 MCG/ACT Inhalation Aerosol Solution (Tiotropium [place] Monohydrate)Indica tions:Severe persistent asthma without complication Inhale [...] 100 mgIndications:Eosinophi lic asthma 100 mg SC [id number] 05/22/2023 04/22/2024 Active documented as of this [...] procedure well. Discharged in stable condition. * rAaceli Luong RN - 07/04/2023 12:40 PM EST [...] 11:00 AM EST Hem/Onc Treatment Hematology/Oncology Treatment, [address] [phone] [place], Chair 3 Hem Onc [address] [place] [address] 08/28/2023 11:30 AM EST Hem/Onc Treatment Hematology/Oncology Treatment, [address] [address] [place], Chair 4 Hem Onc Scenery [address] [place] [address] [place] [address] 08/29/2023 11:00 AM EST Hem/Onc Treatment Hematology/Oncology Treatment, [address] [address] [place], Chair 9 Hem Onc Scenery [address] [place] [address] [place] [address] 08/30/2023 11:45 AM EST Hem/Onc Treatment Hematology/Oncology Treatment, [address] [phone] [place], Chair 2 Hem Onc [facility] 200 [facility] [place] [address] 09/12/2023 1:00 PM EDT Nurse Only Pulmonary Medicine, [facility] 132 [facility] [address] Gw, Nurse Pulmonary 132 [facility] [place] [address] 10/19/2023 11:15 AM EDT Office Visit Otolaryngology [facility] 132 [facility] [place] [address] Martita Gaston MD 132 [facility] [place] [address] 11/14/2023 3:00 PM EDT Office Visit Family Medicine [address] [phone] Ruel Fajardo MD [address] [place] [address] [place] [address] 11/20/2023 1:30 PM EDT Office Visit Allergy/Immunology [facility] [place] 200 [facility] [place] [address] Adriel Montalvo MD 200 [facility] [place] [address] 07/25/2024 1:40 PM EST Office Visit Neurology [facility] [place] 200 [facility] [place] [address] John Dodge, [address] [place] [address] [place] [address] Scheduled Procedures Name Priority Associated Diagnoses Date/Ti [...] D LEVEL ONCE IN A LIFETIME-USE SMARTSET# [id number] Completed 11/18/2020 Influenza Vaccine (FLU shot) Completed [...] Diagnosis CIDP (chronic inflammatory demyelinating polyneuropathy) ([facility])- Primary Chronic inflammatory demyelinating polyneuritis documented [...] mL documented in this encounter Care Teams Tie Mill Operator Relationship Specialty Start Date End Date Ruel Fajardo MD [address] [place] [address] [place] [phone] PCP - General Family Medicine 10/17/19 documented as of this encounter
--- OUTSIDE RECORDS SUMMARY | 2023-09-12 10:42 | External Medical Summary | Summary of Care ---
Author Name Unknown Organization [facility] Address [address] [facility] [place] [address] Phone [phone] Care Team Providers Care Supervisor Partial Denture Department Name Role Phone Ruel Fajardo MD Primary Care Provide r Reason for Visit * Reason Comments IV Therapy Privigen. * Episode Based Medications (Routine) - Authorized Specialty Diagnoses / Procedures Referred By Contac t Referred To Contact Diagnoses CIDP (chronic inflammatory demyelinating polyneuropathy) ([facility]) Procedures [place] INJ IVIG PRIVIGEN 500 MG John Dodge, DO [address] [place] [address] Anc Hem/Onc Joesph Harmon DEPT CLOSED - 05/08/23 [address] [place] [address] Referral ID Status Reason Start Date Expiration Date V isits Requested Visits Authorized [id number] Authorized 03/16/2023 03/16/2024 999 [id number] Encounter Details Date Type Department Care Team (Latest Contact Info) Description 07/02/2023 11:00 AM EST Hem/Onc Treatment Hematology/Oncolog y Treatment, [facility] [address] [place] [address] Eden, Chair 8 Hem Onc Scenery [address] [place] [address] CIDP (chronic inflammatory demyelinating polyneuropathy) ([facility])* Allergies Active Allergy Reactions Criticality Noted [...] Capsule (Neurontin)Indicat ions:CIDP (chronic inflammatory demyelinating polyneuropathy) ([facility]) 3 tabs at bedtime 90 Capsule [...] Respimat 2.5 MCG/ACT Inhalation Aerosol Solution (Tiotropium [place] Monohydrate)Indica tions:Severe persistent asthma without complication Inhale [...] 100 mgIndications:Eosinophi lic asthma 100 mg SC [id number] 05/22/2023 04/22/2024 Active documented as of this [...] 11:00 AM EST Hem/Onc Treatment Hematology/Oncology Treatment, [address] [phone] Eden, Chair 3 Hem Onc Scenery 200 [facility] [place] [address] 08/28/2023 11:30 AM EST Hem/Onc Treatment Hematology/Oncology Treatment, [address] [address] Eden, Chair 4 Hem Onc Scenery 200 [facility] [place] [address] 08/29/2023 11:00 AM EST Hem/Onc Treatment Hematology/Oncology Treatment, [address] [address] Eden, Chair 9 Hem Onc Scenery 200 [facility] [place] [address] 08/30/2023 11:45 AM EST Hem/Onc Treatment Hematology/Oncology Treatment, [place] [address] [facility] [address] [place] [phone] Eden, Chair 2 Hem Onc [address] [place] [address] 09/12/2023 1:00 PM EDT Nurse Only Pulmonary Medicine, [facility] 132 [facility] [place] [address] Gw, Nurse Pulmonary 132 [facility] [place] [address] 10/19/2023 11:15 AM EDT Office Visit Otolaryngology [facility] 132 [facility] [place] [address] Martita Gaston MD 132 [place] [address] 11/14/2023 3:00 PM EDT Office Visit Family Medicine [address] [phone] Ruel Fajardo MD [address] [place] [address] [place] [address] 11/20/2023 1:30 PM EDT Office Visit Allergy/Immunology [facility] [place] 200 [facility] [place] [address] Adriel Montalvo MD 200 [facility] [place] [address] 07/25/2024 1:40 PM EST Office Visit Neurology [facility] [place] 200 [facility] [place] [address] John Dodge DO 200 [facility] [place] [address] Scheduled Procedures Name Priority Associated Diagnoses Date/Ti [...] D LEVEL ONCE IN A LIFETIME-USE SMARTSET# [id number] Completed 11/18/2020 Influenza Vaccine (FLU shot) Completed [...] Diagnoses Diagnosis CIDP (chronic inflammatory demyelinating polyneuropathy) ([facility])- Primary Chronic inflammatory demyelinating polyneuritis documented [...] mL documented in this encounter Care Teams Supervisor Partial Denture Department Relationship Specialty Start Date End Date Ruel Fajardo MD [address] [place] [address] [place] [address] PCP - General Family Medicine 10/17/19 documented as of this encounter
--- OUTSIDE RECORDS SUMMARY | 2023-09-12 10:42 | External Medical Summary | Summary of Care ---
Author Name Unknown Organization [facility] Address [address] [facility] [place] [address] Phone [phone] Care Team Providers Care Building Trades Teacher Name Role Phone Ruel Fajardo MD Primary Care Provide r Reason for Visit * Reason Comments IV Therapy IVIG * Episode Based Medications (Routine) - Authorized Specialty Diagnoses / Procedures Referred By Contac t Referred To Contact Diagnoses CIDP (chronic inflammatory demyelinating polyneuropathy) ([facility]) Procedures [place] INJ IVIG PRIVIGEN 500 MG John Dodge, DO [address] [place] [address] Anc Hem/Onc Scenerenae Harmon DEPT CLOSED - 05/08/23 [address] [place] [address] Referral ID Status Reason Start Date Expiration Date V isits Requested Visits Authorized [id number] Authorized 03/16/2023 03/16/2024 999 999 Encounter Details Date Type Department Care Team (Latest Contact Info) Description 07/03/2023 1:15 PM EST Hem/Onc Treatment Hematology/Oncolog y Treatment, [place] [address] [place] [address] Eden, Chair 9 Hem Onc Scenery [address] [place] [address] CIDP (chronic inflammatory demyelinating polyneuropathy) ([facility])* Allergies Active Allergy Reactions Criticality [...] (vitamin B-2)Indications:CI DP (chronic inflammatory demyelinating polyneuropathy) ([facility]) Take by mouth 4 Tablets [...] Capsule (Neurontin)Indicat ions:CIDP (chronic inflammatory demyelinating polyneuropathy) ([facility]) 3 tabs at bedtime 90 [...] Respimat 2.5 MCG/ACT Inhalation Aerosol Solution (Tiotropium [place] Monohydrate)Indica tions:Severe persistent asthma without complication Inhale [...] 100 mgIndications:Eosinophi lic asthma 100 mg SC [id number] 05/22/2023 04/22/2024 Active documented as of this [...] 11:00 AM EST Hem/Onc Treatment Hematology/Oncology Treatment, [address] [phone] Eden, Chair 3 Hem Onc [address] [place] [address] 08/28/2023 11:30 AM EST Hem/Onc Treatment Hematology/Oncology Treatment, [address] [address] Eden, Chair 4 Hem Onc Scenery [address] [place] [address] [place] [address] 08/29/2023 11:00 AM EST Hem/Onc Treatment Hematology/Oncology Treatment, [address] [address] Eden, Chair 9 Hem Onc Scenery 200 [facility] [place] [address] 08/30/2023 11:45 AM EST Hem/Onc Treatment Hematology/Oncology Treatment, [address] [phone] Park, Chair 2 Hem Onc [facility] 200 [facility] [place] [address] 09/12/2023 1:00 PM EDT Nurse Only Pulmonary Medicine, [facility] 132 [facility] [address] Gw, Nurse Pulmonary 132 [facility] [address] 10/19/2023 11:15 AM EDT Office Visit Otolaryngology [facility] 132 [facility] [place] [address] Maritta Gaston MD 132 [facility] [place] [address] 11/14/2023 3:00 PM EDT Office Visit Family Medicine [address] [phone] Ruel Fajardo MD [address] [place] [address] [place] [address] 11/20/2023 1:30 PM EDT Office Visit Allergy/Immunology [facility] [place] 200 [facility] [place] [address] Adriel Montalvo MD 200 [facility] [place] [address] 07/25/2024 1:40 PM EST Office Visit Neurology [facility] [place] 200 [facility] [place] [address] John Dodge DO 200 [facility] [place] [address] Scheduled Procedures Name Priority Associated Diagnoses Date/Ti [...] D LEVEL ONCE IN A LIFETIME-USE SMARTSET# [id number] Completed 11/18/2020 Influenza Vaccine (FLU shot) Completed [...] mL documented in this encounter Care Teams Building Trades Teacher Relationship Specialty Start Date End Date Ruel Fajardo MD [address] [place] [address] [place] [address] PCP - General Family Medicine 10/17/19 documented as of this encounter
--- OUTSIDE RECORDS SUMMARY | 2023-09-12 10:42 | External Medical Summary | Summary of Care ---
Author Name Unknown Organization [facility] Address [address] [facility] [place] [address] Phone [phone] Care Team Providers Care Lighting Specialist Name Role Phone Ruel Fajardo MD Primary Care Provide r Reason for Visit * Reason Comments IV Therapy Privigen. * Episode Based Medications (Routine) - Authorized Specialty Diagnoses / Procedures Referred By Contac t Referred To Contact Diagnoses CIDP (chronic inflammatory demyelinating polyneuropathy) ([facility]) Procedures [place] INJ IVIG PRIVIGEN 500 MG John Dodge, DO [address] [place] [address] Anc Hem/Onc Joesph Harmon DEPT CLOSED - 05/08/23 [address] [place] [address] Referral ID Status Reason Start Date Expiration Date V isits Requested Visits Authorized [id number] Authorized 03/16/2023 03/16/2024 999 999 Encounter Details [...] Respimat 2.5 MCG/ACT Inhalation Aerosol Solution (Tiotropium [place] Monohydrate)Indica tions:Severe persistent asthma without complication Inhale [...] 100 mgIndications:Eosinophi lic asthma 100 mg SC [id number] 05/22/2023 04/22/2024 Active documented as of this [...] 11:00 AM EST Hem/Onc Treatment Hematology/Oncology Treatment, [address] [phone] [place], Chair 3 Hem Onc Scenery [facility] [place] [address] 08/28/2023 11:30 AM EST Hem/Onc Treatment Hematology/Oncology Treatment, [address] [address] Eden, Chair 4 Hem Onc Scenery [facility] [place] [address] 08/29/2023 11:00 AM EST Hem/Onc Treatment Hematology/Oncology Treatment, [address] [address] Eden, Chair 9 Hem Onc Scenery [facility] [place] [address] 08/30/2023 11:45 AM EST Hem/Onc Treatment Hematology/Oncology Treatment, [place] [address] [facility] [address] [place] [phone] Eden, Chair 2 Hem Onc [address] [place] [address] 09/12/2023 1:00 PM EDT Nurse Only Pulmonary Medicine, [facility] 132 [facility] [place] [address] Gw, Nurse Pulmonary 132 [facility] [place] [address] 10/19/2023 11:15 AM EDT Office Visit Otolaryngology [facility] 132 [facility] [place] [address] Martita Gaston MD 132 [place] [address] 11/14/2023 3:00 PM EDT Office Visit Family Medicine [address] [phone] Ruel Fajardo MD [address] [place] [address] [place] [address] 11/20/2023 1:30 PM EDT Office Visit Allergy/Immunology [facility] [place] 200 [facility] [place] [address] Adriel Montalvo MD 200 [facility] [place] [address] 07/25/2024 1:40 PM EST Office Visit Neurology [facility] [place] 200 [facility] [place] [address] John Dodge DO 200 [facility] [place] [address] Scheduled Procedures Name Priority Associated Diagnoses Date/Ti [...] D LEVEL ONCE IN A LIFETIME-USE SMARTSET# [id number] Completed 11/18/2020 Influenza Vaccine (FLU shot) Completed [...] inflammatory demyelinating polyneuropathy) ([facility])- Primary Chronic inflammatory demyelinating polyneuritis documented [...] mL documented in this encounter Care Teams Lighting Specialist Relationship Specialty Start Date End Date Ruel Fajardo MD [address] [place] [address] [place] [address] PCP - General Family Medicine 10/17/19 documented as of this encounter
--- OUTSIDE RECORDS SUMMARY | 2023-09-12 10:42 | External Medical Summary | Summary of Care ---
Author Name Unknown Organization [facility] Address [address] [facility] [place] [address] Phone [phone] Care Team Providers Care Identification Printing Machine Setter Name Role Phone Ruel Fajardo MD Primary Care Provide r Reason for Visit * Reason Comments IV Therapy Privigen. * Episode Based Medications (Routine) - Authorized Specialty Diagnoses / Procedures Referred By Contac t Referred To Contact Diagnoses CIDP (chronic inflammatory demyelinating polyneuropathy) ([facility]) Procedures [place] INJ IVIG PRIVIGEN 500 MG John Dodge, DO [address] [place] [address] Anc Hem/Onc Joesph Harmon DEPT CLOSED - 05/08/23 [address] [place] [address] Referral ID Status Reason Start Date Expiration Date V isits Requested Visits Authorized [id number] Authorized 03/16/2023 03/16/2024 999 999 Encounter Details Date Type Department Care Team (Latest Contact Info) Description 07/04/2023 11:00 AM EST Hem/Onc Treatment Hematology/Oncolog y Treatment, [facility] [address] [place] [address] Eden, Chair 3 Hem Onc Scenery [address] [place] [address] CIDP (chronic inflammatory demyelinating polyneuropathy) ([facility] [...] Respimat 2.5 MCG/ACT Inhalation Aerosol Solution (Tiotropium [place] Monohydrate)Indica tions:Severe persistent asthma without complication Inhale [...] 100 mgIndications:Eosinophi lic asthma 100 mg SC [id number] 05/22/2023 04/22/2024 Active documented as of this [...] 11:00 AM EST Hem/Onc Treatment Hematology/Oncology Treatment, [address] [phone] [place], Chair 3 Hem Onc [address] [place] [address] 08/28/2023 11:30 AM EST Hem/Onc Treatment Hematology/Oncology Treatment, [address] [address] Eden, Chair 4 Hem Onc Scenery [address] [place] [address] [place] [address] 08/29/2023 11:00 AM EST Hem/Onc Treatment Hematology/Oncology Treatment, [address] [address] Eden, Chair 9 Hem Onc Scenery [address] [place] [address] [place] [address] 08/30/2023 11:45 AM EST Hem/Onc Treatment Hematology/Oncology Treatment, [address] [phone] Eden, Chair 2 Hem Onc [facility] 200 [facility] [place] [address] 09/12/2023 1:00 PM EDT Nurse Only Pulmonary Medicine, [facility] 132 [facility] [address] Gw, Nurse Pulmonary 132 [facility] [place] [address] 10/19/2023 11:15 AM EDT Office Visit Otolaryngology [facility] 132 [facility] [place] [address] Martita Gaston MD 132 [facility] [place] [address] 11/14/2023 3:00 PM EDT Office Visit Family Medicine [address] [phone] Ruel Fajardo MD [address] [place] [address] [place] [address] 11/20/2023 1:30 PM EDT Office Visit Allergy/Immunology [facility] [place] 200 [facility] [place] [address] Adriel Montalvo MD 200 [facility] [place] [address] 07/25/2024 1:40 PM EST Office Visit Neurology [facility] [place] 200 [facility] [place] [address] John Dodge, [address] [place] [address] [place] [address] Scheduled Procedures Name Priority Associated Diagnoses Date/Ti [...] D LEVEL ONCE IN A LIFETIME-USE SMARTSET# [id number] Completed 11/18/2020 Influenza Vaccine (FLU shot) Completed [...] mL documented in this encounter Care Teams Identification Printing Machine Setter Relationship Specialty Start Date End Date Ruel Fajardo MD [address] [place] [address] [place] [id number] PCP - General Family Medicine 10/17/19 documented as of this encounter
--- OUTSIDE RECORDS SUMMARY | 2023-09-12 10:42 | External Medical Summary | Summary of Care ---
Author Name Unknown Organization [facility] Address [address] [facility] [place] [address] Phone [phone] Care Team Providers Care Embroidery Specialist Name Role Phone Ruel Fajardo MD Primary Care Provide r Reason for Visit * Reason Comments IV Therapy IVIG * Episode Based Medications (Routine) - Authorized Specialty Diagnoses / Procedures Referred By Contac t Referred To Contact Diagnoses CIDP (chronic inflammatory demyelinating polyneuropathy) ([facility]) Procedures [place] INJ IVIG PRIVIGEN 500 MG John Dodge, DO [address] [place] [address] Anc Hem/Onc Scenerenae Harmon DEPT CLOSED - 05/08/23 [address] [place] [address] Referral ID Status Reason Start Date Expiration Date V isits Requested Visits Authorized [id number] Authorized 03/16/2023 03/16/2024 999 999 Encounter Details Date Type Department Care Team (Latest Contact Info) Description 07/03/2023 1:15 PM EST Hem/Onc Treatment Hematology/Oncolog y Treatment, [place] [address] [place] [address] Eden, Chair 9 Hem Onc Scenery [address] [place] [address] CIDP (chronic inflammatory demyelinating polyneuropathy) ([facility] [...] (vitamin B-2)Indications:CI DP (chronic inflammatory demyelinating polyneuropathy) ([facility] [...] Capsule (Neurontin)Indicat ions:CIDP (chronic inflammatory demyelinating polyneuropathy) ([facility] [...] Respimat 2.5 MCG/ACT Inhalation Aerosol Solution (Tiotropium [place] Monohydrate)Indica tions:Severe persistent asthma without complication Inhale [...] 100 mgIndications:Eosinophi lic asthma 100 mg SC [id number] 05/22/2023 04/22/2024 Active documented as of this [...] 11:00 AM EST Hem/Onc Treatment Hematology/Oncology Treatment, [address] [phone] Eden, Chair 3 Hem Onc [address] [place] [address] 08/28/2023 11:30 AM EST Hem/Onc Treatment Hematology/Oncology Treatment, [address] [address] Eden, Chair 4 Hem Onc Scenery [address] [place] [address] [place] [address] 08/29/2023 11:00 AM EST Hem/Onc Treatment Hematology/Oncology Treatment, [address] [address] Eden, Chair 9 Hem Onc Scenery 200 [facility] [place] [address] 08/30/2023 11:45 AM EST Hem/Onc Treatment Hematology/Oncology Treatment, [address] [phone] [place], Chair 2 Hem Onc [facility] 200 [facility] [place] [address] 09/12/2023 1:00 PM EDT Nurse Only Pulmonary Medicine, [facility] 132 [facility] [address] Gw, Nurse Pulmonary 132 [facility] [address] 10/19/2023 11:15 AM EDT Office Visit Otolaryngology [facility] 132 [facility] [place] [address] Martita Gaston MD 132 [place] [address] 11/14/2023 3:00 PM EDT Office Visit Family Medicine [address] [phone] Ruel Fajardo MD [address] [place] [address] [place] [address] 11/20/2023 1:30 PM EDT Office Visit Allergy/Immunology [facility] [place] 200 [facility] [place] [address] Adriel Montalvo MD 200 [facility] [place] [address] 07/25/2024 1:40 PM EST Office Visit Neurology [facility] [place] 200 [facility] [place] [address] John Dodge DO 200 [facility] [place] [address] Scheduled Procedures Name Priority Associated Diagnoses Date/Ti [...] D LEVEL ONCE IN A LIFETIME-USE SMARTSET# [id number] Completed 11/18/2020 Influenza Vaccine (FLU shot) Completed [...] mL documented in this encounter Care Teams Embroidery Specialist Relationship Specialty Start Date End Date Ruel Fajardo MD [address] [place] [address] [place] [address] PCP - General Family Medicine 10/17/19 documented as of this encounter
--- OUTSIDE RECORDS SUMMARY | 2023-09-12 10:43 | External Medical Summary | Summary of Care ---
Author Name Unknown Organization [facility] Address [address] [facility] [place] [address] Phone [phone] Care Team Providers Care Yard Warehouse Worker Name Role Phone Ruel Fajardo MD Primary Care Provide r Reason for Visit * Reason Comments IV Therapy Privigen. * Episode Based Medications (Routine) - Authorized Specialty Diagnoses / Procedures Referred By Contac t Referred To Contact Diagnoses CIDP (chronic inflammatory demyelinating polyneuropathy) ([facility]) Procedures [place] INJ IVIG PRIVIGEN 500 MG John Dodge, DO [address] [place] [address] Anc Hem/Onc Joesph Harmon DEPT CLOSED - 05/08/23 [address] [place] [address] Referral ID Status Reason Start Date Expiration Date V isits Requested Visits Authorized [id number] Authorized 03/16/2023 03/16/2024 999 999 Encounter Details Date Type Department Care Team (Latest Contact Info) Description 07/02/2023 11:00 AM EST Hem/Onc Treatment Hematology/Oncolog y Treatment, [facility] [address] [place] [address] Eden, Chair 8 Hem Onc Scenery [address] [place] [address] CIDP (chronic inflammatory demyelinating polyneuropathy) ([facility])* Allergies Active Allergy Reactions Criticality [...] Capsule (Neurontin)Indicat ions:CIDP (chronic inflammatory demyelinating polyneuropathy) ([facility]) 3 tabs at bedtime 90 [...] Respimat 2.5 MCG/ACT Inhalation Aerosol Solution (Tiotropium [place] Monohydrate)Indica tions:Severe persistent asthma without complication Inhale [...] 100 mgIndications:Eosinophi lic asthma 100 mg SC [id number] 05/22/2023 04/22/2024 Active documented as of this [...] 11:00 AM EST Hem/Onc Treatment Hematology/Oncology Treatment, [address] [phone] Eden, Chair 3 Hem Onc Scenery 200 [facility] [place] [address] 08/28/2023 11:30 AM EST Hem/Onc Treatment Hematology/Oncology Treatment, [address] [address] Eden, Chair 4 Hem Onc Scenery 200 [facility] [place] [address] 08/29/2023 11:00 AM EST Hem/Onc Treatment Hematology/Oncology Treatment, [address] [address] Eden, Chair 9 Hem Onc Scenery 200 [facility] [place] [address] 08/30/2023 11:45 AM EST Hem/Onc Treatment Hematology/Oncology Treatment, [place] 200 [facility] [address] [place] [phone] Eden, Chair 2 Hem Onc [address] [place] [address] 09/12/2023 1:00 PM EDT Nurse Only Pulmonary Medicine, [facility] 132 [facility] [place] [address] Gw, Nurse Pulmonary 132 [facility] [place] [address] 10/19/2023 11:15 AM EDT Office Visit Otolaryngology [facility] 132 [facility] [place] [address] Martita Gaston MD 132 [facility] [place] [address] 11/14/2023 3:00 PM EDT Office Visit Family Medicine [address] [phone] Ruel Fajardo MD [address] [place] [address] [place] [address] 11/20/2023 1:30 PM EDT Office Visit Allergy/Immunology [facility] [place] 200 [facility] [place] [address] Adriel Montalvo MD 200 [facility] [place] [address] 07/25/2024 1:40 PM EST Office Visit Neurology [facility] [place] 200 [facility] [place] [address] John Dodge DO 200 [facility] [place] [address] Scheduled Procedures Name Priority Associated Diagnoses Date/Ti [...] D LEVEL ONCE IN A LIFETIME-USE SMARTSET# [id number] Completed 11/18/2020 Influenza Vaccine (FLU shot) Completed [...] Diagnoses Diagnosis CIDP (chronic inflammatory demyelinating polyneuropathy) ([facility])- Primary Chronic inflammatory demyelinating polyneuritis [...] mL documented in this encounter Care Teams Yard Warehouse Worker Relationship Specialty Start Date End Date Ruel Fajardo MD [address] [place] [address] [place] [address] PCP - General Family Medicine 10/17/19 documented as of this encounter
--- OUTSIDE RECORDS SUMMARY | 2023-09-12 10:43 | External Medical Summary | Summary of Care ---
Author Name Unknown Organization [facility] Address [address] [facility] [place] [address] Phone [phone] Care Team Providers Care Bi Solutions Architect Name Role Phone Ruel Fajardo MD Primary Care Provide r Reason for Visit * Reason Comments IV Therapy Privigen. * Episode Based Medications (Routine) - Authorized Specialty Diagnoses / Procedures Referred By Contac t Referred To Contact Diagnoses CIDP (chronic inflammatory demyelinating polyneuropathy) ([facility]) Procedures [place] INJ IVIG PRIVIGEN 500 MG John Dodge, DO [address] [place] [address] Anc Hem/Onc Joesph Harmon DEPT CLOSED - 05/08/23 [address] [place] [address] Referral ID Status Reason Start Date Expiration Date V isits Requested Visits Authorized [id number] Authorized 03/16/2023 03/16/2024 [id number] Encounter Details Date Type Department Care Team (Latest Contact Info) Description 07/05/2023 11:00 AM EST Hem/Onc Treatment Hematology/Oncolog y Treatment, [facility] [address] [place] [address] [place], Chair 7 Hem Onc Scenery [address] [place] [address] CIDP (chronic inflammatory demyelinating polyneuropathy) ([facility])* Allergies Active Allergy Reactions Criticality Noted Date Comments Amoxicillin Rash 07/17/2011 documented as of this encounter (statuses as of 08/18/2023) Medications Medication Sig Dispensed Refills Start Date [...] (Neurontin)Indicat ions:CIDP (chronic inflammatory demyelinating polyneuropathy) ([facility]) 3 tabs at bedtime 90 [...] Respimat 2.5 MCG/ACT Inhalation Aerosol Solution (Tiotropium [place] Monohydrate)Indica tions:Severe persistent asthma without complication Inhale [...] 100 mgIndications:Eosinophi lic asthma 100 mg SC [id number] 05/22/2023 04/22/2024 Active documented as of this encounter (statuses as of 08/18/2023) Active Problems Problem Noted Date Diagnosed Date [...] as of this encounter (statuses as of 08/18/2023) Resolved Problems Problem Noted Date Diagnosed Date Resolved Date Wedge compression fracture o f unspecified lumbar vertebra, initial encounter for closed fracture 09/06/2022 09/06/2022 Compression of lumbar vertebra 11/18/2020 01/20/2021 Asthma, moderate persistent 08/29/2011 10/16/2011 Asthma exacerbation 07/17/2011 05/13/20 12 documented as of this encounter (statuses as of 08/18/2023) Immunizations Name Administration Dates Next Due COVID-19 [...] Sign Reading Time Taken Comments Blood Pressure 107/70 07/05/2023 11:00 AM EST Pulse 93 07/05/2023 11:00 AM EST Temperature 37 C (98.6 F) 07/05/2023 11:00 AM EST Respiratory Rate 18 07/05/2023 11:00 AM EST Oxygen Saturation 94% 07/05/2023 11:00 AM EST Inhaled Oxygen Concentration - - Weight - - Height - - Body Mass Index - - documented in this encounter Nursing Notes * Araceli Luong RN - 07/05/2023 1:40 PM EST Goals: Patient will remain free from injury. Possible barriers to meeting goals: Fall risk d/t ambulation with IV pole. Stability of the patient: Moderately stable - low risk of patient condition declining or worsening Summary regarding today's goals: Met: Patient remained free of injury. Patient tolerated procedure well. Discharged in stable condition. * Araceli Luong RN - 07/05/2023 11:14 AM EST Chair 10. Patient arrived for privigen treatment with no complaints. PIV still in place with no issues. Safety and Risk for Injury Patient will remain free from injury. Ensure appropriate safety devices are available. Provide and maintain safe environment. documented in this encounter Plan of Treatment Upcoming Encounters Date Type Department Care Team (Late st Contact Info) Description 08/27/2023 11:00 AM EST Hem/Onc Treatment Hematology/[address], [address] [phone] [place], Chair 3 Hem Onc Scenery 200 [facility] [place] [address] 08/28/2023 11:30 AM EST Hem/Onc Treatment Hematology/Oncology [address], [address] [address] Park, Chair 4 Hem Onc Scenery 200 [facility] [place] [address] 08/29/2023 11:00 AM EST Hem/Onc Treatment Hematology/Oncology [address], [address] [address] Eden, Chair 9 Hem Onc Scenery 200 [facility] [place] [address] 08/30/2023 11:45 AM EST Hem/Onc Treatment Hematology/Oncology [address], [address] [address] [place], Chair 2 Hem Onc Scenery 200 [facility] [place] [address] 09/12/2023 1:00 PM EDT Nurse Only Pulmonary Medicine, [facility] [address] [facility] [place] [address] Gw, Nurse Pulmonary [facility] [address] 10/19/2023 11:15 AM EDT Office Visit Otolaryngology [facility] [address] Martita Gaston MD 132 [facility] [address] 11/14/2023 3:00 PM EDT Office Visit Family Medicine [address] [phone] Ruel Fajardo MD [address] [place] [address] [place] [address] 11/20/2023 1:30 PM EDT [facility] 200 [facility] [place] [address] Adriel Montalvo MD 200 [facility] [place] [address] 07/25/2024 1:40 PM EST Office Visit Neurology [facility] [place] 200 [facility] [place] [address] John Dodge, 200 [facility] [place] [address] Scheduled Procedures Name Priority Associated Diagnoses Date/Ti [...] D LEVEL ONCE IN A LIFETIME-USE SMARTSET# 53636 Completed 11/18/2020 Influenza Vaccine (FLU shot) Completed [...] Diagnosis CIDP (chronic inflammatory demyelinating polyneuropathy) ([facility])- Primary Chronic inflammatory demyelinating polyneuritis documented in this encounter Administered Medications Inactive Administered Medications - up to 3 most recent administrations Medication Order MAR Action Action Date Dose Rate Site Acetaminophen (Tylenol) tab 650 mg 650 mg, Oral, ONCE, On Allison 07/05/23 at 1215, For 1 dose, Maximum of 4 grams (4000 mg) per day. Given 07/05/2023 11:11 AM EST 650 mg diphenhydrAMINE (Benadryl) cap 25 mg 25 mg, Oral, ONCE, On [place] 07/05/23 at 1215, For 1 dose Given 07/05/2023 11:11 AM EST 25 mg Immune Globulin Human-IVIG 10% (Privigen) IV 40 g 40 g, IV Piggyback, ONCE, 1 dose, On Allison 07/05/23 at 1245, Total dose = 45 gm [...] Infusion duration = 1.8 hours Rate Change 07/05/2023 12:30 PM EST 423 mL/hr Start Infusion 07/05/2023 12:14 PM EST 40 g 212 mL/h r Immune Globulin Human-IVIG 10% (Privigen) IV 5 g 5 g, IV Piggyback, ONCE, 1 dose, On Allison 07/05/23 at 1215, Total dose = 45 gm [...] Infusion duration = 1.8 hours Rate Change 07/05/2023 11:55 AM EST 106 mL/hr Rate Change 07/05/2023 11:40 AM EST 53 mL/hr Start Infusion 07/05/2023 11:25 AM EST 5 g 26 mL/hr NSS infusion 500 mL, Intravenous, at 50 mL/hr, CONTINUOUS, Starting on Allison 07/05/23 at 1215, Until Allison 07/05/23 at 1743 Start Infusion 07/05/2023 11:11 AM EST 500 mL 50 mL/hr documented in this encounter Care Teams Bi Solutions Architect Relationship Specialty Start Date End Date Ruel Fajardo MD [address] [place] [address] [place] [phone] PCP - General Family Medicine 10/17/19 documented as of this encounter
--- OUTSIDE RECORDS SUMMARY | 2023-09-12 10:43 | External Medical Summary | Summary of Care ---
Author Name Unknown Organization [facility] Address [address] [facility] [place] [address] Phone [phone] Care Team Providers Care Facility Sales And Admin Name Role Phone Ruel Fajardo MD Primary Care Provide r Reason for Visit * Reason Comments IV Therapy IVIG * Episode Based Medications (Routine) - Authorized Specialty Diagnoses / Procedures Referred By Contac t Referred To Contact Diagnoses CIDP (chronic inflammatory demyelinating polyneuropathy) ([facility]) Procedures [place] INJ IVIG PRIVIGEN 500 MG John Dodge, DO [address] [place] [address] Anc Hem/Onc Scenerenae Harmon DEPT CLOSED - 05/08/23 [address] [place] [address] Referral ID Status Reason Start Date Expiration Date V isits Requested Visits Authorized [id number] Authorized 03/16/2023 03/16/2024 [id number] Encounter Details Date Type Department Care Team (Latest Contact Info) Description 07/03/2023 1:15 PM EST Hem/Onc Treatment Hematology/Oncolog y Treatment, [place] [address] [place] [address] [place], Chair 9 Hem Onc Scenery [address] [place] [address] CIDP (chronic inflammatory demyelinating polyneuropathy) ([facility])* Allergies Active Allergy Reactions Criticality Noted [...] (vitamin B-2)Indications:CI DP (chronic inflammatory demyelinating polyneuropathy) ([facility]) Take by mouth 4 Tablets in [...] (Neurontin)Indicat ions:CIDP (chronic inflammatory demyelinating polyneuropathy) ([facility]) 3 tabs at bedtime 90 Capsule [...] Respimat 2.5 MCG/ACT Inhalation Aerosol Solution (Tiotropium [place] Monohydrate)Indica tions:Severe persistent asthma without complication Inhale [...] 100 mgIndications:Eosinophi lic asthma 100 mg SC [id number] 05/22/2023 04/22/2024 Active documented as of this [...] AM EST Hem/Onc Treatment Hematology/Oncology [address], [address] [phone] [place], Chair 3 Hem On[address] [place] [address] 08/28/2023 11:30 AM EST Hem/Onc Treatment Hematology/Oncology Treatment, [address] [address] [place], Chair 4 Hem Onc Scenery [address] [place] [address] [place] [address] 08/29/2023 11:00 AM EST Hem/Onc Treatment Hematology/Oncology Treatment, [address] [address] [place], Chair 9 Hem Onc Scenery 200 [facility] [place] [address] 08/30/2023 11:45 AM EST Hem/Onc Treatment Hematology/Oncology Treatment, [address] [phone] [place], Chair 2 Hem Onc [facility] 200 [facility] [place] [address] 09/12/2023 1:00 PM EDT Nurse Only Pulmonary Medicine, [facility] 132 [facility] [address] Gw, Nurse Pulmonary [facility] [address] 10/19/2023 11:15 AM EDT Office Visit Otolaryngology [facility] 132 [employer] [place] [address] Martita Gaston MD 132 [place] [address] 11/14/2023 3:00 PM EDT Office Visit Family Medicine [address] [phone] Ruel Fajardo MD [address] [place] [address] [place] [address] 11/20/2023 1:30 PM EDT Office Visit Allergy/Immunology [facility] [place] 200 [facility] [place] [address] Adriel Montalvo MD 200 [facility] [place] [address] 07/25/2024 1:40 PM EST Office Visit Neurology [facility] [place] 200 [facility] [place] [address] John Dodge DO 200 [facility] [place] [address] Scheduled Procedures Name Priority Associated Diagnoses Date/Ti [...] D LEVEL ONCE IN A LIFETIME-USE SMARTSET# [id number] Completed 11/18/2020 Influenza Vaccine (FLU shot) Completed [...] mL documented in this encounter Care Teams Facility Sales And Admin Relationship Specialty Start Date End Date Ruel Fajardo MD [address] [place] [address] [place] [address] PCP - General Family Medicine 10/17/19 documented as of this encounter
--- OUTSIDE RECORDS SUMMARY | 2023-09-12 10:43 | External Medical Summary | Summary of Care ---
Author Name Unknown Organization [facility] Address [address] [facility] [place] [address] Phone [phone] Care Team Providers Care Animal Husbandry Manager Name Role Phone Ruel Fajardo MD Primary Care Provide r Reason for Visit * Reason Comments IV Therapy IVIG * Episode Based Medications (Routine) - Authorized Specialty Diagnoses / Procedures Referred By Contac t Referred To Contact Diagnoses CIDP (chronic inflammatory demyelinating polyneuropathy) ([facility]) Procedures [place] INJ IVIG PRIVIGEN 500 MG John Dodge, DO [address] [place] [address] Anc Hem/Onc Scenerenae Harmon DEPT CLOSED - 05/08/23 [address] [place] [address] Referral ID Status Reason Start Date Expiration Date V isits Requested Visits Authorized [id number] Authorized 03/16/2023 03/16/2024 999 [id number] Encounter Details Date Type Department Care Team (Latest Contact Info) Description 07/03/2023 1:15 PM EST Hem/Onc Treatment Hematology/Oncolog y Treatment, [place] [address] [place] [address] [place], Chair 9 Hem Onc Scenery [address] [place] [address] CIDP (chronic inflammatory demyelinating polyneuropathy) [facility] [...] (vitamin B-2)Indications:CI DP (chronic inflammatory demyelinating polyneuropathy) ([facility]) Take by mouth 4 Tablets [...] Respimat 2.5 MCG/ACT Inhalation Aerosol Solution (Tiotropium [place] Monohydrate)Indica tions:Severe persistent asthma without complication Inhale [...] 100 mgIndications:Eosinophi lic asthma 100 mg SC [id number] 05/22/2023 04/22/2024 Active documented as of this [...] 11:00 AM EST Hem/Onc Treatment Hematology/Oncology Treatment, [address] [phone] [place], Chair 3 Hem On[address] [place] [address] 08/28/2023 11:30 AM EST Hem/Onc Treatment Hematology/Oncology Treatment, [address] [address] [place], Chair 4 Hem Onc Scenery [address] [place] [address] [place] [address] 08/29/2023 11:00 AM EST Hem/Onc Treatment Hematology/Oncology Treatment, [address] [address] [place], Chair 9 Hem Onc Scenery 200 [facility] [place] [address] 08/30/2023 11:45 AM EST Hem/Onc Treatment Hematology/Oncology Treatment, [address] [phone] [place], Chair 2 Hem Onc [facility] 200 [facility] [place] [address] 09/12/2023 1:00 PM EDT Nurse Only Pulmonary Medicine, [facility] [address] Gw, Nurse Pulmonary [facility] [address] 10/19/2023 11:15 AM EDT Office Visit Otolaryngology [facility] 132 [facility] [place] [address] Martita Gaston MD 132 [place] [address] 11/14/2023 3:00 PM EDT Office Visit Family Medicine [address] [phone] Ruel Fajardo MD [address] [place] [address] [place] [address] 11/20/2023 1:30 PM EDT Office Visit Allergy/Immunology [facility] [place] 200 [facility] [place] [address] Adriel Montalvo MD 200 [facility] [place] [address] 07/25/2024 1:40 PM EST Office Visit Neurology [facility] [place] 200 [facility] [place] [address] John Dodge DO 200 [facility] [place] [address] Scheduled Procedures Name Priority Associated Diagnoses Date/Ti [...] D LEVEL ONCE IN A LIFETIME-USE SMARTSET# 48609 Completed 11/18/2020 Influenza Vaccine (FLU shot) Completed [...] mL documented in this encounter Care Teams Animal Husbandry Manager Relationship Specialty Start Date End Date Ruel Fajardo MD [address] [place] [address] [place] [address] PCP - General Family Medicine 10/17/19 documented as of this encounter
--- OUTSIDE RECORDS SUMMARY | 2023-09-12 10:43 | External Medical Summary | Summary of Care ---
Author Name Unknown Organization [facility] Address [address] [facility] [place] [address] Phone [phone] Care Team Providers Care Electrical Prospecting Observer Name Role Phone Ruel Fajardo MD Primary Care Provide r Reason for Visit * Reason Comments Infusion Privigen. * Episode Based Medications (Routine) - Authorized Specialty Diagnoses / Procedures Referred By Contac t Referred To Contact Diagnoses CIDP (chronic inflammatory demyelinating polyneuropathy) ([facility]) Procedures [place] INJ IVIG PRIVIGEN 500 MG John Dodge, DO [address] [place] [address] Anc Hem/Onc Joesph Harmon DEPT CLOSED - 05/08/23 200 [facility] [place] [address] Referral ID Status Reason Start Date Expiration Date V isits Requested Visits Authorized [id number] Authorized 03/16/2023 03/16/2024 [id number] Encounter Details Date Type Department Care Team (Latest Contact Info) Description 06/05/2023 9:30 AM EST Hem/Onc Treatment Hematology/Oncolog y Treatment, [place] [address] [place] [address] CIDP (chronic inflammatory demyelinating polyneuropathy) ([facility])* Allergies Active Allergy Reactions Criticality Noted Date Comments Amoxicillin Rash 07/17/2011 documented as of this encounter (statuses as of 08/13/2023) Medications Medication Sig Dispensed Refills Start Date [...] 60 MG Oral Capsule Delayed Release Particles (Cymbalta)Indicati ons:Low back pain without sciatica, unspecified back pain laterality, unspecified chronicity Take 1 Cap by mouth daily. Do not cut, crush or chew 30 Cap 2 1 Active Meloxicam 7.5 MG Oral Tablet Take 1 Tab by mouth daily. 30 Tab 5 1 Active Vitamin B-2 100 MG Oral Tablet (vitamin B-2)Indications:CI DP (chronic inflammatory demyelinating polyneuropathy) ([facility]) Take by mouth 4 Tablets in the morning. 120 Tablet 3 2 Active Wixela Inhub 500-50 MCG/ACT Inhalation Aerosol Powder Breath Activated (Fluticasone-Salme terol)Indications: Severe persistent asthma without complication INHALE ONE PUFF BY MOUTH TWICE DAILY 180 Each 3 2 Active Atorvastatin Calcium 10 MG Oral Tablet (Lipitor)Indicatio ns:Mixed hyperlipidemia Take by mouth 1 Tablet in the morning. 30 Tablet 2 2 Active Gabapentin 100 MG Oral Capsule (Neurontin)Indicat ions:CIDP (chronic inflammatory demyelinating polyneuropathy) ([facility]) 3 tabs at bedtime 90 [...] Respimat 2.5 MCG/ACT Inhalation Aerosol Solution (Tiotropium [place] Monohydrate)Indica tions:Severe persistent asthma without complication Inhale [...] IVIG infusion. 60 Capsule 1 3 Active Azelastine HCl 137 MCG/SPRAY Nasal Solution Administer into nostril 2 Sprays in the morning AND 2 Sprays before bedtime. 30 mL 11 2 07/23/19 24 Discontinued(Re fill) hydrALAZINE HCl 25 MG Oral Tablet (Apresoline)Indica tions:HTN, goal below 140/90 Take 1 Tablet by mouth every 4 hours as needed for Hypertension. If Blood pressure above 160/100 60 Tablet 0 3 06/28/19 24 Discontinued(Re fill) hydroCHLOROthiazid e 25 MG [...] Tablet 1 3 08/07/19 24 Discontinued(Re fill) Albuterol Sulfate HFA 108 (90 Base) MCG/ACT Inhalation Aerosol SolutionIndication s:Severe persistent asthma without complication TAKE 2 PUFFS BY MOUTH EVERY 4 HOURS NEEDED FOR WHEEZE 8.5 g 5 3 06/20/20 23 Discontinued Cyclobenzaprine HCl 5 MG Oral Tablet (Flexeril)Indicati ons:Weakness of both legs,Numbness and tingling of foot,Lumbar compression fracture (HCC) TAKE ONE TABLET BY MOUTH TWICE DAILY NEEDED FOR MUSCLE SPASM 30 Tablet 1 3 07/11/19 24 Discontinued(Re fill) predniSONE 10 MG Oral Tablet (Deltasone) 1-3 tabs daily as directed 90 Tablet 0 3 07/16/19 24 Discontinued(Re fill) Hospital, Clinic, or Other [...] 100 mgIndications:Eosinophi lic asthma 100 mg SC [id number] 05/22/2023 04/22/2024 Active documented as of this encounter (statuses as of 08/13/2023) Active Problems Problem Noted Date Diagnosed Date [...] as of this encounter (statuses as of 08/13/2023) Resolved Problems Problem Noted Date Diagnosed Date Resolved Date Wedge compression fracture o f unspecified lumbar vertebra, initial encounter for closed fracture 09/06/2022 09/06/2022 Compression of lumbar vertebra 11/18/2020 01/20/2021 Asthma, moderate persistent 08/29/2011 10/16/2011 Asthma exacerbation 07/17/2011 05/13/20 12 documented as of this encounter (statuses as of 08/13/2023) Immunizations Name Administration Dates Next Due COVID-19 [...] Sign Reading Time Taken Comments Blood Pressure 141/81 06/05/2023 9:38 AM EST Pulse 73 06/05/2023 9:38 AM EST Temperature 36.7 C (98.1 F) 06/05/2023 9:38 AM ES T Respiratory Rate 18 06/05/2023 9:38 AM EST Oxygen Saturation 96% 06/05/2023 9:38 AM EST Inhaled Oxygen Concentration - - Weight - - Height - - Body Mass Index - - documented in this encounter Nursing Notes * Araceli Luong, HAMILTON - 06/05/2023 1:12 PM EST Goals: Patient will remain free from injury. Possible barriers to meeting goals: Fall risk d/t ambulation with IV pole. Stability of the patient: Moderately stable - low risk of patient condition declining or worsening Summary regarding today's goals: Met: Patient remained free of injury. PIV was flushed, clamped, and capped for use for tomorrow's treatment. Patient tolerated procedure well. Discharged in stable condition. * Araceli Luong RN - 06/05/2023 10:10 AM EST Chair 8. Patient arrived with saline lock still in place and flushes easily. Safety and Risk for Injury Patient will remain free from injury. Ensure appropriate safety devices are available. Provide and maintain safe environment. documented in this encounter Plan of Treatment Upcoming Encounters Date Type Department Care Team (Late st Contact Info) Description 08/27/2023 11:00 AM EST Hem/Onc Treatment Hematology/Oncology Treatment, [address], [place] [address] [place], Chair 3 Hem Onc Scenery 200 [facility] [place] [address] 08/28/2023 11:30 AM EST Hem/Onc Treatment Hematology/Oncology Treatment, [address], [place] [address] [place], Chair 4 Hem Onc Scenery 200 [facility] [place] [address] 08/29/2023 11:00 AM EST Hem/Onc Treatment Hematology/Oncology Treatment, [address] [place] [address] [place], Chair 9 Hem Onc Scenery [address] [place] [address] 08/30/2023 11:45 AM EST Hem/Onc Treatment Hematology/Oncology Treatment, [address] [place] [address] [place], Chair 2 Hem Onc Scenery [address] [place] [address] 09/12/2023 1:00 PM EDT Nurse Only Pulmonary Medicine, [facility] [address] [facility] [place] [address] Gw, Nurse Pulmonary [facility] [place] [address] 10/19/2023 11:15 AM EDT Office Visit Otolaryngology [facility] [address] [facility] [place] [address] Martita Gaston MD 132 [facility] [place] [address] 11/14/2023 3:00 PM EDT Office Visit Family Medicine [address] [address] Ruel Fajardo MD [address] [place] [address] [place] [address] 11/20/2023 1:30 PM EDT Office Visit Allergy/Immunology [facility] [place] 200 [facility] [place] [address] Adriel Montalvo MD 200 [place] [address] 07/25/2024 1:40 PM EST Office Visit Neurology [facility] [place] 200 [facility] [place] [address] John Dodge DO 200 [place] [address] Scheduled Procedures Name Priority Associated Diagnoses Date/Ti [...] D LEVEL ONCE IN A LIFETIME-USE SMARTSET# 12969 Completed 11/18/2020 Influenza Vaccine (FLU shot) Completed [...] 650 mg 650 mg, Oral, ONCE, On Sun06/05/23 at 1045, For 1 dose, Maximum of 4 grams (4000 mg) per day. Given 06/05/2023 9:43 AM EST 650 mg diphenhydrAMINE (Benadryl) cap 25 mg 25 mg, Oral, ONCE, On Sun06/05/23 at 1045, For 1 dose Given 06/05/2023 9:43 AM EST 25 mg hEParin 100 UNIT/ML Lock Flush inj 500 Units 500 Units (5 mL), IV Lock, PRN Other, IV Flush, Starting on Sun06/05/23 at 0938, Until Sun06/05/23 at 1717, For 24 hours, Do not flush if lock, PICC, or central line not in place; IV infusing or unable to flush. Given 06/05/2023 12:00 PM EST 500 Units Immune Globulin Human-IVIG 10% (Privigen) IV 40 g 40 g, IV Piggyback, ONCE, 1 dose, On Sun06/05/23 at 1115, Total dose = 45 gm Dispensed as [...] Infusion duration = 1.8 hours Rate Change 06/05/2023 11:05 AM EST 423 mL/hr Start Infusion 06/05/2023 10:52 AM EST 40 g 212 mL/h r Immune Globulin Human-IVIG 10% (Privigen) IV 5 g 5 g, IV Piggyback, ONCE, 1 dose, On Sun06/05/23 at 1045, Total dose = 45 gm Dispensed as [...] Infusion duration = 1.8 hours Rate Change 06/05/2023 10:50 AM EST 212 mL/hr Rate Change 06/05/2023 10:35 AM EST 106 mL/hr Rate Change 06/05/2023 10:20 AM EST 53 mL/hr NSS infusion 500 mL, Intravenous, at 50 mL/hr, CONTINUOUS, Starting on Sun06/05/23 at 1045, Until Sun06/05/23 at 1717 Start Infusion 06/05/2023 9:43 AM EST 500 mL 50 mL/hr sodium chloride 0.9 % flush central line 10 mL 10 mL, IV Push, PRN Other, IV Flush, Starting on Sun06/05/23 at 0938, Until Sun06/05/23 at 1717, For 24 hours, Do not flush if lock, PICC, or central line not in place; IV infusing or unable to flush. Given 06/05/2023 12:00 PM EST 10 mL documented in this encounter Care Teams Electrical Prospecting Observer Relationship Specialty Start Date End Date Ruel Fajardo MD [address] [place] [address] [place] [address] PCP - General Family Medicine 10/17/19 documented as of this encounter
--- OUTSIDE RECORDS SUMMARY | 2023-09-12 10:43 | External Medical Summary | Summary of Care ---
Author Name Unknown Organization [facility] Address [address] [facility] [place] [address] Phone [phone] Care Team Providers Care Cane Furniture Maker Name Role Phone Ruel Fajardo MD Primary Care Provide r Reason for Visit * Reason Comments IV Therapy Privigen. * Episode Based Medications (Routine) - Authorized Specialty Diagnoses / Procedures Referred By Contac t Referred To Contact Diagnoses CIDP (chronic inflammatory demyelinating polyneuropathy) ([facility]) Procedures [place] INJ IVIG PRIVIGEN 500 MG John Dodge, DO [address] [place] [address] Anc Hem/Onc Joesph Harmon DEPT CLOSED - 05/08/23 [address] [place] [address] Referral ID Status Reason Start Date Expiration Date V isits Requested Visits Authorized [id number] Authorized 03/16/2023 03/16/2024 [id number] Encounter Details Date Type Department Care Team (Latest Contact Info) Description 07/05/2023 11:00 AM EST Hem/Onc Treatment Hematology/Oncolog y Treatment, [place] [facility] [address] [place] [address] [place], Chair 7 Hem Onc Scenery [address] [place] [address] CIDP (chronic inflammatory demyelinating polyneuropathy) ([facility])* Allergies Active Allergy Reactions Criticality Noted [...] (chronic inflammatory demyelinating polyneuropathy) ([facility]) 3 tabs at bedtime 90 Capsule [...] Respimat 2.5 MCG/ACT Inhalation Aerosol Solution (Tiotropium [place] Monohydrate)Indica tions:Severe persistent asthma without complication Inhale [...] 100 mgIndications:Eosinophi lic asthma 100 mg SC [id number] 05/22/2023 04/22/2024 Active documented as of this [...] 11:00 AM EST Hem/Onc Treatment Hematology/[address], [address] [phone] [place], Chair 3 Hem Onc Scenery 200 [facility] [place] [address] 08/28/2023 11:30 AM EST Hem/Onc Treatment Hematology/Oncology [address], [address] [address] [place], Chair 4 Hem Onc Scenery 200 [facility] [place] [address] 08/29/2023 11:00 AM EST Hem/Onc Treatment Hematology/Oncology [address], [address] [address] [place], Chair 9 Hem Onc Scenery 200 [facility] [place] [address] 08/30/2023 11:45 AM EST Hem/Onc Treatment Hematology/Oncology [address], [address] [address] [place], Chair 2 Hem Onc Scenery 200 [facility] [place] [address] 09/12/2023 1:00 PM EDT Nurse Only Pulmonary Medicine, [facility] 132 [facility] [place] [address] Gw, Nurse Pulmonary [facility] [address] 10/19/2023 11:15 AM EDT Office Visit Otolaryngology [facility] [address] Martita Gaston MD [facility] [address] 11/14/2023 3:00 PM EDT Office Visit Family Medicine [address] [address] Ruel Fajardo MD [address] [place] [address] [place] [address] 11/20/2023 1:30 PM EDT Office [facility] 200 [facility] [place] [address] Adriel Montalvo MD 200 [facility] [place] [address] 07/25/2024 1:40 PM EST Office Visit Neurology [facility] [place] 200 [facility] [place] [address] John Dodge, 200 [facility] [place] [address] Scheduled Procedures Name Priority Associated Diagnoses Date/Ti [...] D LEVEL ONCE IN A LIFETIME-USE SMARTSET# 14479 Completed 11/18/2020 Influenza Vaccine (FLU shot) Completed [...] (chronic inflammatory demyelinating polyneuropathy) ([facility])- Primary Chronic inflammatory demyelinating polyneuritis documented [...] mL/hr documented in this encounter Care Teams Cane Furniture Maker Relationship Specialty Start Date End Date Ruel Fajardo MD [address] [place] [address] [place] [phone] PCP - General Family Medicine 10/17/19 documented as of this encounter
--- OUTSIDE RECORDS SUMMARY | 2023-09-12 10:43 | External Medical Summary | Summary of Care ---
Author Name Unknown Organization [facility] Address [address] [facility] [place] [address] Phone [phone] Care Team Providers Care Short Order Fry Cook Name Role Phone Ruel Fajardo MD Primary Care Provide r Reason for Visit * Reason Comments IV Therapy IVIG * Episode Based Medications (Routine) - Authorized Specialty Diagnoses / Procedures Referred By Contac t Referred To Contact Diagnoses CIDP (chronic inflammatory demyelinating polyneuropathy) ([facility]) Procedures [place] INJ IVIG PRIVIGEN 500 MG John Dodge, DO [address] [place] [address] Anc Hem/Onc Scenerenae Harmon DEPT CLOSED - 05/08/23 [address] [place] [address] Referral ID Status Reason Start Date Expiration Date V isits Requested Visits Authorized [id number] Authorized 03/16/2023 03/16/2024 [id number] Encounter Details Date Type Department Care Team (Latest Contact Info) Description 07/03/2023 1:15 PM EST Hem/Onc Treatment Hematology/Oncolog y Treatment, [place] [address] [place] [address] [place], Chair 9 Hem Onc Scenery [address] [place] [address] CIDP (chronic inflammatory demyelinating polyneuropathy) ([facility])* [...] (vitamin B-2)Indications:CI DP (chronic inflammatory demyelinating polyneuropathy) ([facility]) Take by mouth 4 Tablets in [...] Respimat 2.5 MCG/ACT Inhalation Aerosol Solution (Tiotropium [place] Monohydrate)Indica tions:Severe persistent asthma without complication Inhale [...] 100 mgIndications:Eosinophi lic asthma 100 mg SC [id number] 05/22/2023 04/22/2024 Active documented as of this [...] 11:00 AM EST Hem/Onc Treatment Hematology/Oncology Treatment, [address] [phone] [place], Chair [address] [place] [address] 08/28/2023 11:30 AM EST Hem/Onc Treatment Hematology/Oncology Treatment, [address] [address] [place], Chair 4 Hem Onc Scenery [address] [place] [address] [place] [address] 08/29/2023 11:00 AM EST Hem/Onc Treatment Hematology/Oncology Treatment, [address] [address] [place], Chair 9 Hem Onc Scenery 200 [facility] [place] [address] 08/30/2023 11:45 AM EST Hem/Onc Treatment Hematology/Oncology Treatment, [address] [address] [place], Chair 2 Hem Onc [facility] 200 [facility] [place] [address] 09/12/2023 1:00 PM EDT Nurse Only Pulmonary Medicine, [facility] [address] Gw, Nurse Pulmonary [facility] [address] 10/19/2023 11:15 AM EDT Office Visit Otol[facility]ology [facility] 132 [facility] [place] [address] Martita Gaston MD [address] [facility] [place] [address] 11/14/2023 3:00 PM EDT Office Visit Family Medicine [address] [phone] Ruel Fajardo MD [address] [place] [address] [place] [address] 11/20/2023 1:30 PM EDT Office Visit Allergy/Immunology [facility] [place] 200 [facility] [place] [address] Adriel Montalvo MD 200 [facility] [place] [address] 07/25/2024 1:40 PM EST Office Visit Neurology [facility] [place] 200 [facility] [place] [address] John Dodge DO 200 [facility] [place] [address] Scheduled Procedures Name Priority Associated Diagnoses Date/Ti [...] D LEVEL ONCE IN A LIFETIME-USE SMARTSET# 99645 Completed 11/18/2020 Influenza Vaccine (FLU shot) Completed [...] mL documented in this encounter Care Teams Short Order Fry Cook Relationship Specialty Start Date End Date Ruel Fajardo MD [address] [place] [address] [place] [address] PCP - General Family Medicine 10/17/19 documented as of this encounter
--- OUTSIDE RECORDS SUMMARY | 2023-09-12 10:44 | External Medical Summary | Summary of Care ---
Author Name Unknown Organization [facility] Address [address] [facility] [place] [address] Phone [phone] Care Team Providers Care Clerical Warehouseman Name Role Phone Ruel Fajardo MD Primary Care Provide r Reason for Visit * Reason Comments IV Therapy Privigen 06/28 * Episode Based Medications (Routine) - Authorized Specialty Diagnoses / Procedures Referred By Contac t Referred To Contact Diagnoses CIDP (chronic inflammatory demyelinating polyneuropathy) ([facility]) Procedures [place] INJ IVIG PRIVIGEN 500 MG John Dodge, DO [address] [place] [address] Anc Hem/Onc Joesph Harmon DEPT CLOSED - 05/08/[address] [phone] Referral ID Status Reason Start Date Expiration Date V isits Requested Visits Authorized [id number] Authorized 03/16/2023 03/16/2024 999 [id number] Encounter Details Date Type Department Care Team (Latest Contact Info) Description 06/04/2023 9:00 AM EST Hem/Onc Treatment Hematology/Oncolog y Treatment, [facility] [address] [place] [address] [place], Chair 3 Hem Onc Scenery [address] [place] [address] CIDP (chronic inflammatory demyelinating polyneuropathy) ([facility])* Allergies Active Allergy Reactions Criticality Noted Date Comments Amoxicillin Rash 07/17/2011 documented as of this encounter (statuses as of 08/12/2023) Medications Medication Sig Dispensed Refills Start Date [...] Active Atorvastatin Calcium 10 MG Oral Tablet (Lipitor)Famo ns:Mixed hyperlipidemia Take by mouth 1 Tablet in the morning. 30 Tablet 2 2 Active Gabapentin 100 MG Oral Capsule (Neurontin)Indicat ions:CIDP (chronic inflammatory demyelinating polyneuropathy) ([facility]) 3 tabs at bedtime 90 Capsule [...] Respimat 2.5 MCG/ACT Inhalation Aerosol Solution (Tiotropium [place] Monohydrate)Indica tions:Severe persistent asthma without complication Inhale [...] 100 mgIndications:Eosinophi lic asthma 100 mg SC [id number] 05/22/2023 04/22/2024 Active documented as of this encounter (statuses as of 08/12/2023) Active Problems Problem Noted Date Diagnosed Date [...] as of this encounter (statuses as of 08/12/2023) Resolved Problems Problem Noted Date Diagnosed Date Resolved Date Wedge compression fracture o f unspecified lumbar vertebra, initial encounter for closed fracture 09/06/2022 09/06/2022 Compression of lumbar vertebra 11/18/2020 01/20/2021 Asthma, moderate persistent 08/29/2011 10/16/2011 Asthma exacerbation 07/17/2011 05/13/20 12 documented as of this encounter (statuses as of 08/12/2023) Immunizations Name Administration Dates Next Due COVID-19 [...] Sign Reading Time Taken Comments Blood Pressure 114/74 06/04/2023 9:30 AM EST Pulse 78 06/04/2023 9:30 AM EST Temperature 36.2 C (97.1 F) 06/04/2023 9:30 AM ES T Respiratory Rate 18 06/04/2023 9:30 AM EST Oxygen Saturation 94% 06/04/2023 9:30 AM EST Inhaled Oxygen Concentration - - Weight - - Height - - Body Mass Index - - documented in this encounter Nursing Notes * Linsey Haq RN - 06/04/2023 2:38 PM EST Chair 7 Pt arrives for privigen, walking with a cane. He states he's doing well and denies any acute complaints. IV started in the right forearm without difficulty, good blood return noted, flushed with NSS,fluids infusing. Safety and Risk for Injury Patient will remain free from injury. Ensure appropriate safety devices are available. Provide and maintain safe environment. Goals: Patient will remain free from injury. Possible barriers to meeting goals: ambulation ;with IV pole, benadryl may cause drowsiness, use ofcane, history of falls Stability of the patient: Moderately unstable - medium risk of patient condition declining or worsening Summary regarding today's goals: Met: Pt remained free of injury during treatment today. Patient tolerated treatment well and was discharged in stable condition. IV site remains intact fortreatment tomorrow. No coverage needed today. documented in this encounter Plan of Treatment Upcoming Encounters Date Type Department Care Team (Late st Contact Info) Description 08/27/2023 11:00 AM EST Hem/Onc Treatment Hematology/[address], [address] [address] [place], Chair 3 Hem Onc Scenery [address] [place] [address] [place] [address] 08/28/2023 11:30 AM EST Hem/Onc Treatment Hematology/Oncology Treatment, [address] [address] [place], Chair 4 Hem Onc Scenery 200 [facility] [place] [address] 08/29/2023 11:00 AM EST Hem/Onc Treatment Hematology/Oncology Treatment, [address] [address] [place], Chair 9 Hem Onc Scenery 200 [facility] [place] [address] 08/30/2023 11:45 AM EST Hem/Onc Treatment Hematology/Oncology Treatment, [address] [address] [place], Chair 2 Hem Onc Scenery [address] [place] [address] 09/12/2023 1:00 PM EDT Nurse Only Pulmonary Medicine, [facility] [address] Gw, Nurse Pulmonary [facility] [place] [address] 10/19/2023 11:15 AM EDT Office Visit Otolaryngology [facility] [address] Martita Gaston MD [facility] [address] 11/14/2023 3:00 PM EDT Office Visit Family Medicine [address] [phone] Ruel Fajardo MD [address] [place] [address] [place] [address] 11/20/2023 1:30 PM EDT Office Visit Allergy/Immunology [facility] [address] [place] [address] Adriel Montalvo MD [address] [place] [address] [place] [address] 07/25/2024 1:40 PM EST Office Visit Neurology [facility] [place] 200 [facility] [place] [address] John Dodge, [address] [place] [address] [place] [address] Scheduled Procedures Name Priority Associated Diagnoses Date/Ti [...] D LEVEL ONCE IN A LIFETIME-USE SMARTSET# [id number] Completed 11/18/2020 Influenza Vaccine (FLU shot) Completed [...] Diagnoses Diagnosis CIDP (chronic inflammatory demyelinating polyneuropathy) ([facility])- Primary Chronic inflammatory demyelinating polyneuritis documented in this encounter Administered Medications Inactive Administered Medications - up to 3 most recent administrations Medication Order MAR Action Action Date Dose Rate Site Acetaminophen (Tylenol) tab 650 mg 650 mg, Oral, ONCE, On Sun06/04/23 at 1015, For 1 dose, Maximum of 4 grams (4000 mg) per day. Given By 06/04/2023 8:00 AM EST 650 mg diphenhydrAMINE (Benadryl) cap 25 mg 25 mg, Oral, ONCE, On Sun06/04/23 at 1015, For 1 dose Given 06/04/2023 9:04 AM EST 25 mg hEParin 100 UNIT/ML Lock Flush inj 500 Units 500 Units (5 mL), IV Lock, PRN Other, IV Flush, Starting on Sun06/04/23 at 0901, Until Sun06/04/23 at 1853, For 24 hours, Do not flush if lock, PICC, or central line not in place; IV infusing or unable to flush. Given 06/04/2023 11:14 AM EST 500 Units Immune Globulin Human-IVIG 10% (Privigen) IV 40 g 40 g, IV Piggyback, ONCE, 1 dose, On Sun06/04/23 at 1045, Total dose = 45 gm [...] Infusion duration = 1.8 hours Rate Change 06/04/2023 10:20 AM EST 423 mL/hr Start Infusion 06/04/2023 10:04 AM EST 40 g 212 mL/h r Immune Globulin Human-IVIG 10% (Privigen) IV 5 g 5 g, IV Piggyback, ONCE, 1 dose, On Sun06/04/23 at 1015, Total dose = 45 gm Dispensed as [...] Infusion duration = 1.8 hours Rate Change 06/04/2023 10:00 AM EST 212 mL/hr Rate Change 06/04/2023 9:45 AM EST 106 mL/hr Rate Change 06/04/2023 9:30 AM EST 53 mL/hr NSS infusion 500 mL, Intravenous, at 50 mL/hr, CONTINUOUS, Starting on Sun06/04/23 at 1015, Until Sun06/04/23 at 1853 Start Infusion 06/04/2023 8:55 AM EST 500 mL 50 mL/hr sodium chloride 0.9 % flush central line 10 mL 10 mL, IV Push, PRN Other, IV Flush, Starting on Sun06/04/23 at 0901, Until Sun06/04/23 at 1853, For 24 hours, Do not flush if lock, PICC, or central line not in place; IV infusing or unable to flush. Given 06/04/2023 11:13 AM EST 10 mL documented in this encounter Care Teams Clerical Warehouseman Relationship Specialty Start Date End Date Ruel Fajardo MD [address] [place] [address] [place] [phone] PCP - General Family Medicine 10/17/19 documented as of this encounter
--- OUTSIDE RECORDS SUMMARY | 2023-09-12 10:44 | External Medical Summary | Summary of Care ---
Author Name Unknown Organization [facility] Address [address] [facility] [place] [address] Phone [phone] Care Team Providers Care Sales Outfitter Name Role Phone Ruel Fajardo MD Primary Care Provide r Reason for Visit * Reason Comments IV Therapy IVIG 09/26 * Episode Based Medications (Routine) - Authorized Specialty Diagnoses / Procedures Referred By Contac t Referred To Contact Diagnoses CIDP (chronic inflammatory demyelinating polyneuropathy) ([facility]) Procedures [place] INJ IVIG PRIVIGEN 500 MG John Dodge, DO [address] [place] [address] Anc Hem/Onc Joesph Harmon DEPT CLOSED - 05/08/[address] [phone] Referral ID Status Reason Start Date Expiration Date V isits Requested Visits Authorized [id number] Authorized 03/16/2023 03/16/2024 999 [id number] Encounter Details Date Type Department Care Team (Latest Contact Info) Description 06/07/2023 9:00 AM EST Hem/Onc Treatment Hematology/Oncolog y Treatment, [facility] [address] [place] [address] [place], Chair 3 Hem Onc Scenery [address] [place] [address] CIDP (chronic inflammatory demyelinating polyneuropathy) ([facility])* Allergies Active Allergy Reactions Criticality Noted Date Comments Amoxicillin Rash 07/17/2011 documented as of this encounter (statuses as of 08/11/2023) Medications Medication Sig Dispensed Refills Start Date [...] (vitamin B-2)Indications:CI DP (chronic inflammatory demyelinating polyneuropathy) ([facility]) Take by mouth 4 Tablets in [...] Capsule (Neurontin)Indicat ions:CIDP (chronic inflammatory demyelinating polyneuropathy) ([facility]) 3 tabs at bedtime 90 [...] Respimat 2.5 MCG/ACT Inhalation Aerosol Solution (Tiotropium [place] Monohydrate)Indica tions:Severe persistent asthma without complication Inhale [...] 100 mgIndications:Eosinophi lic asthma 100 mg SC [id number] 05/22/2023 04/22/2024 Active documented as of this encounter (statuses as of 08/11/2023) Active Problems Problem Noted Date Diagnosed Date [...] as of this encounter (statuses as of 08/11/2023) Resolved Problems Problem Noted Date Diagnosed Date Resolved Date Wedge compression fracture o f unspecified lumbar vertebra, initial encounter for closed fracture 09/06/2022 09/06/2022 Compression of lumbar vertebra 11/18/2020 01/20/2021 Asthma, moderate persistent 08/29/2011 10/16/2011 Asthma exacerbation 07/17/2011 05/13/20 12 documented as of this encounter (statuses as of 08/11/2023) Immunizations Name Administration Dates Next Due COVID-19 [...] on file documented as of this encounter Nursing Notes * Dorota Ardon RN - 06/07/2023 4:14 PM EST Chair 7. IV in place from tx yesterday, here for day 09/26 IVIG, feeling well. Safety and Risk for Injury Patient will [...] well without any acute issues or problems. Patient left facility in stable condition and denied any further needs. documented in this encounter Plan of Treatment Upcoming Encounters Date Type Department Care Team (Late st Contact Info) Description 08/27/2023 11:00 AM EST Hem/Onc Treatment Hematology/Oncology Treatment, [address], [place] [address] [place], Chair 3 Hem Onc Scenery [address] [place] [address] 08/28/2023 11:30 AM EST Hem/Onc Treatment Hematology/Oncology Treatment, [address], [place] [address] [place], Chair 4 Hem Onc Scenery [address] [place] [address] 08/29/2023 11:00 AM EST Hem/Onc Treatment Hematology/Oncology Treatment, [place] 200 [facility], [place] [address] [place], Chair 9 Hem Onc Scenery [address] [place], [place] [address] 08/30/2023 11:45 AM EST Hem/Onc Treatment Hematology/Oncology Treatment, [address], [place] [address] [place], Chair 2 Hem Onc Scenery [address] [place], [place] [address] 09/12/2023 1:00 PM EDT Nurse Only Pulmonary Medicine, [facility] [address] [address] Gw, Nurse Pulmonary [address] [address] 10/19/2023 11:15 AM EDT Office Visit Otolaryngology [facility] [address] [address] Martita Gaston MD [address] [place] [address] 11/14/2023 3:00 PM EDT Office Visit Family Medicine [address] [place] [address] Ruel Fajardo MD [address] [place] [address] [place] [address] 11/20/2023 1:30 PM EDT Office Visit Allergy/Immunology [facility] [address] [place] [address] Adriel Montalvo MD [address] [place] [address] 07/25/2024 1:40 PM EST Office Visit Neurology [facility] [address] [place] [address] John Dodge, [address] [place] [address] Scheduled Procedures Name Priority Associated Diagnoses Date/Ti [...] D LEVEL ONCE IN A LIFETIME-USE SMARTSET# [id number] Completed 11/18/2020 Influenza Vaccine (FLU shot) Completed [...] Diagnoses Diagnosis CIDP (chronic inflammatory demyelinating polyneuropathy) ([facility])- Primary Chronic inflammatory demyelinating polyneuritis documented in this encounter Administered Medications Inactive Administered Medications - up to 3 most recent administrations Medication Order MAR Action Action Date Dose Rate Site Acetaminophen (Tylenol) tab 650 mg 650 mg, Oral, ONCE, On Allison 06/07/23 at 1030, For 1 dose, Maximum of 4 grams (4000 mg) per day. Given 06/07/2023 9:16 AM EST 650 mg diphenhydrAMINE (Benadryl) cap 25 mg 25 mg, Oral, ONCE, On Allison 06/07/23 at 1030, For 1 dose Given 06/07/2023 9:16 AM EST 25 mg Immune Globulin Human-IVIG 10% (Privigen) IV 40 g 40 g, IV Piggyback, ONCE, 1 dose, On Allison 06/07/23 at 1100, Total dose = 45 gm Dispensed as [...] Infusion duration = 1.8 hours Rate Change 06/07/2023 10:30 AM EST 423 mL/hr Rate Change 06/07/2023 10:15 AM EST 212 mL/hr Start Infusion 06/07/2023 10:09 AM EST 40 g 106 mL/h r Immune Globulin Human-IVIG 10% (Privigen) IV 5 g 5 g, IV Piggyback, ONCE, 1 dose, On Allison 06/07/23 at 1030, Total dose = 45 gm Dispensed as [...] Infusion duration = 1.8 hours Rate Change 06/07/2023 10:00 AM EST 106 mL/hr Rate Change 06/07/2023 9:45 AM EST 53 mL/hr Start Infusion 06/07/2023 9:30 AM EST 5 g 26 mL/hr NSS infusion 500 mL, Intravenous, at 50 mL/hr, CONTINUOUS, Starting on Allison 06/07/23 at 1030, Until Allison 06/07/23 at 2018 Start Infusion 06/07/2023 9:15 AM EST 500 mL 50 mL/hr documented in this encounter Care Teams Sales Outfitter Relationship Specialty Start Date End Date Ruel Fajardo MD [address] [place] [address] [place] [address] PCP - General Family Medicine 10/17/19 documented as of this encounter
--- OUTSIDE RECORDS SUMMARY | 2023-09-12 10:44 | External Medical Summary | Summary of Care ---
Author Name Unknown Organization [facility] Address [address] [facility] [place] [address] Phone [phone] Care Team Providers Care Pro Shop Attendant Name Role Phone Ruel Fajardo MD Primary Care Provide r Reason for Visit * Reason Comments Infusion Privigen. * Episode Based Medications (Routine) - Authorized Specialty Diagnoses / Procedures Referred By Contac t Referred To Contact Diagnoses CIDP (chronic inflammatory demyelinating polyneuropathy) ([facility]) Procedures [place] INJ IVIG PRIVIGEN 500 MG John Dodge, DO [address] [place] [address] Anc Hem/Onc Joesph Harmon DEPT CLOSED - 05/08/23 200 [facility] [place] [phone] Referral ID Status Reason Start Date Expiration Date V isits Requested Visits Authorized [id number] Authorized 03/16/2023 03/16/[phone] Encounter Details Date Type Department Care Team (Latest Contact Info) Description 06/05/2023 9:30 AM EST Hem/Onc Treatment Hematology/Oncolog y Treatment, [place] [address] [place] [address] CIDP (chronic inflammatory demyelinating polyneuropathy) ([facility])* Allergies Active Allergy Reactions Criticality Noted [...] (vitamin B-2)Indications:CI DP (chronic inflammatory demyelinating polyneuropathy) ([facility]) Take by mouth 4 Tablets in the [...] Capsule (Neurontin)Indicat ions:CIDP (chronic inflammatory demyelinating polyneuropathy) ([facility]) 3 tabs at bedtime 90 Capsule [...] Respimat 2.5 MCG/ACT Inhalation Aerosol Solution (Tiotropium [place] Monohydrate)Indica tions:Severe persistent asthma without complication Inhale [...] 100 mgIndications:Eosinophi lic asthma 100 mg SC [id number] 05/22/2023 04/22/2024 Active documented as of this [...] AM EST Hem/Onc Treatment Hematology/Oncology Treatment, [address], [place] [address] [place], Chair 3 Hem Onc Scenery 200 [facility] [place] [address] 08/28/2023 11:30 AM EST Hem/Onc Treatment Hematology/Oncology Treatment, [address], [place] [address] [place], Chair 4 Hem Onc Scenery 200 [facility] [place] [address] 08/29/2023 11:00 AM EST Hem/Onc Treatment Hematology/Oncology Treatment, [address] [place] [address] [place], Chair 9 Hem Onc Scenery [address] [place] [address] 08/30/2023 11:45 AM EST Hem/Onc Treatment Hematology/Oncology Treatment, [address] [place] [address] [place], Chair 2 Hem Onc Scenery [address] [place] [address] 09/12/2023 1:00 PM EDT Nurse Only Pulmonary Medicine, [facility] 132 [facility] [place] [address] Gw, Nurse Pulmonary [facility] [place] [address] 10/19/2023 11:15 AM EDT Office Visit Otolaryngology [facility] 132 [facility] [place] [address] Martita Gaston MD 132 [facility] [place] [address] 11/14/2023 3:00 PM EDT Office Visit Family Medicine [address] [address] Ruel Fajardo MD [address] [place] [address] [place] [address] 11/20/2023 1:30 PM EDT Office Visit Allergy/Immunology [facility] [place] 200 [facility] [place] [address] Adriel Montalvo MD 200 [facility] [place] [address] 07/25/2024 1:40 PM EST Office Visit Neurology [facility] [place] 200 [facility] [place] [address] John Dodge DO 200 [facility] [place] [address] Scheduled Procedures Name Priority Associated Diagnoses Date/Ti [...] D LEVEL ONCE IN A LIFETIME-USE SMARTSET# [id number] Completed 11/18/2020 Influenza Vaccine (FLU shot) Completed [...] mL documented in this encounter Care Teams Pro Shop Attendant Relationship Specialty Start Date End Date Ruel Fajardo MD [address] [place] [address] [place] [phone] PCP - General Family Medicine 10/17/19 documented as of this encounter
--- OUTSIDE RECORDS SUMMARY | 2023-09-12 10:44 | External Medical Summary | Summary of Care ---
Author Name Unknown Organization [facility] Address [address] [facility] [place] [address] Phone [phone] Care Team Providers Care Kiln Transfer Operator Name Role Phone Ruel Fajardo MD Primary Care Provide r Reason for Visit * Reason Comments IV Therapy Privigen 06/28 * Episode Based Medications (Routine) - Authorized Specialty Diagnoses / Procedures Referred By Contac t Referred To Contact Diagnoses CIDP (chronic inflammatory demyelinating polyneuropathy) ([facility]) Procedures [place] INJ IVIG PRIVIGEN 500 MG John Dodge, DO [address] [place] [address] Anc Hem/Onc Joesph Harmon DEPT CLOSED - 05/08/[address] [place] [phone] Referral ID Status Reason Start Date Expiration Date V isits Requested Visits Authorized [id number] Authorized 03/16/2023 03/16/2024 999 [id number] Encounter Details Date Type Department Care Team (Latest Contact Info) Description 06/04/2023 9:00 AM EST Hem/Onc Treatment Hematology/Oncolog y Treatment, [place] [address] [place] [address] [place], Chair 3 Hem Onc Scenery [address] [place] [address] CIDP (chronic inflammatory demyelinating polyneuropathy) ([facility])* Allergies Active Allergy Reactions Criticality Noted [...] Capsule (Neurontin)Indicat ions:CIDP (chronic inflammatory demyelinating polyneuropathy) ([facility]) 3 tabs at bedtime 90 Capsule [...] Respimat 2.5 MCG/ACT Inhalation Aerosol Solution (Tiotropium [place] Monohydrate)Indica tions:Severe persistent asthma without complication Inhale [...] 100 mgIndications:Eosinophi lic asthma 100 mg SC [id number] 05/22/2023 04/22/2024 Active documented as of this [...] 11:00 AM EST Hem/Onc Treatment Hematology/Oncology Treatment, [address] [address] [place], Chair 3 Hem Onc Scenery [address] [place] [address] [place] [address] 08/28/2023 11:30 AM EST Hem/Onc Treatment Hematology/Oncology Treatment, [address] [address] [place], Chair 4 Hem Onc Scenery 200 [facility] [place] [address] 08/29/2023 11:00 AM EST Hem/Onc Treatment Hematology/Oncology Treatment, [address] [address] [place], Chair 9 Hem Onc Scenery 200 [facility] [place] [address] 08/30/2023 11:45 AM EST Hem/Onc Treatment Hematology/Oncology Treatment, [address] [address] [place], Chair 2 Hem Onc Scenery [address] [place] [address] 09/12/2023 1:00 PM EDT Nurse Only Pulmonary Medicine, [facility] [address] Gw, Nurse Pulmonary [address] [facility] [address] 10/19/2023 11:15 AM EDT Office Visit Otolaryngology [facility] 132 [facility] [address] Martita Gaston MD 132 [facility] [address] 11/14/2023 3:00 PM EDT Office Visit Family Medicine [address] [phone] Ruel Fajardo MD [address] [place] [address] [place] [address] 11/20/2023 1:30 PM EDT Office Visit Allergy/Immunology [facility] [address] [place] [address] Adriel Montalvo MD [address] [place] [address] [place] [address] 07/25/2024 1:40 PM EST Office Visit Neurology [facility] [place] 200 [facility] [place] [address] John Dodge, [address] [place] [address] [place] [address] Scheduled Procedures Name Priority Associated Diagnoses Date/Ti [...] D LEVEL ONCE IN A LIFETIME-USE SMARTSET# [id number] Completed 11/18/2020 Influenza Vaccine (FLU shot) Completed [...] Diagnoses Diagnosis CIDP (chronic inflammatory demyelinating polyneuropathy) ([facility])- Primary Chronic inflammatory demyelinating polyneuritis documented [...] mL documented in this encounter Care Teams Kiln Transfer Operator Relationship Specialty Start Date End Date Ruel Fajardo MD [address] [place] [address] [place] [phone] PCP - General Family Medicine 10/17/19 documented as of this encounter
--- OUTSIDE RECORDS SUMMARY | 2023-09-12 10:44 | External Medical Summary | Summary of Care ---
Author Name Unknown Organization [facility] Address [address] [facility] [place] [address] Phone [phone] Care Team Providers Care Warehouse Team Leader Name Role Phone Ruel Faajrdo MD Primary Care Provide r Reason for Visit * Reason Comments IV Therapy Privigen. * Episode Based Medications (Routine) - Authorized Specialty Diagnoses / Procedures Referred By Contac t Referred To Contact Diagnoses CIDP (chronic inflammatory demyelinating polyneuropathy) ([facility]) Procedures [place] INJ IVIG PRIVIGEN 500 MG John Dodge, DO [address] [place] [address] Anc Hem/Onc Scenerenae Harmon DEPT CLOSED - 05/08/[address] [phone] Referral ID Status Reason Start Date Expiration Date V isits Requested Visits Authorized [id number] Authorized 03/16/2023 03/16/2024 [id number] Encounter Details Date Type Department Care Team (Latest Contact Info) Description 06/06/2023 11:00 AM EST Hem/Onc Treatment Hematology/Oncolog y Treatment, [facility] [address] [place] [address] [place], Chair 5 Hem Onc Scenery [address] [place] [address] CIDP (chronic inflammatory demyelinating polyneuropathy) ([facility])* Allergies Active Allergy Reactions Criticality [...] Capsule (Neurontin)Indicat ions:CIDP (chronic inflammatory demyelinating polyneuropathy) ([facility]) 3 tabs at bedtime 90 [...] Respimat 2.5 MCG/ACT Inhalation Aerosol Solution (Tiotropium [place] Monohydrate)Indica tions:Severe persistent asthma without complication Inhale [...] 100 mgIndications:Eosinophi lic asthma 100 mg SC [id number] 05/22/2023 04/22/2024 Active documented as of this [...] Sign Reading Time Taken Comments Blood Pressure 137/88 06/06/2023 11:26 AM EST Pulse 84 06/06/2023 11:26 AM EST Temperature 36.7 C (98 F) 06/06/2023 11:26 AM EST Respiratory Rate 18 06/06/2023 11:26 AM EST Oxygen Saturation 98% 06/06/2023 11:26 AM EST Inhaled Oxygen Concentration - - Weight - - Height - - Body Mass Index - - documented in this encounter Nursing Notes * Araceli Luong RN - 06/06/2023 2:21 PM EST Patient left peripheral IV in for tomorrows treatment. Goals: Patient will remain free from injury. Possible barriers to meeting goals: Fall risk d/t ambulation with IV pole. Stability of the patient: Moderately stable - low risk of patient condition declining or worsening Summary regarding today's goals: Met: Patient remained free of injury. * Araceli Luong RN - 06/06/2023 12:53 PM EST Chair 8. Patient arrived with no complaints. Peripheral IV still in place and patent. Safety and Risk for Injury Patient will remain free from injury. Ensure appropriate safety devices are available. Provide and maintain safe environment. documented in this encounter Plan of Treatment Upcoming Encounters Date Type Department Care Team (Late st Contact Info) Description 08/27/2023 11:00 AM EST Hem/Onc Treatment Hematology[address] [address] [place], Chair 3 Hem Onc Scenery 200 [facility] [place] [address] 08/28/2023 11:30 AM EST Hem/Onc Treatment Hematology/[address], [address] [address] [place], Chair 4 Hem Onc Scenery 200 [facility] [place] [address] 08/29/2023 11:00 AM EST Hem/Onc Treatment Hematology/[address], [address] [address] [place], Chair 9 Hem Onc Scenery 200 [facility] [place] [address] 08/30/2023 11:45 AM EST Hem/Onc Treatment Hematology/Oncology [address], [address] [address] [place], Chair 2 Hem Onc Scenery 200 [facility] [place] [address] 09/12/2023 1:00 PM EDT Nurse Only Pulmonary Medicine, [facility] [address] [facility] [place] [address] Gw, Nurse Pulmonary 132 [facility] [place] [address] 10/19/2023 11:15 AM EDT Office Visit Otolaryngology [facility] 132 [facility] [place] [address] Martita Gaston MD 132 [facility] [address] 11/14/2023 3:00 PM EDT Office Visit Family Medicine [address] [phone] Ruel Fajardo MD [address] [place] [address] [place] [address] 11/20/2023 1:30 PM EDT Office Visit Allergy/Immunology [facility] [place] [address] [place] [address] Adriel Montalvo MD [address] [place] [address] 07/25/2024 1:40 PM EST [facility] [place] [address] [place] [address] John Dodge, [address] [place] [address] Scheduled Procedures Name Priority Associated Diagnoses Date/Ti [...] D LEVEL ONCE IN A LIFETIME-USE SMARTSET# [id number] Completed 11/18/2020 Influenza Vaccine (FLU shot) Completed [...] 650 mg 650 mg, Oral, ONCE, On Sun06/06/23 at 1215, For 1 dose, Maximum of 4 grams (4000 mg) per day. Given 06/06/2023 11:10 AM EST 650 mg diphenhydrAMINE (Benadryl) cap 25 mg 25 mg, Oral, ONCE, On Sun06/06/23 at 1215, For 1 dose Given 06/06/2023 11:10 AM EST 25 mg hEParin 100 UNIT/ML Lock Flush inj 500 Units 500 Units (5 mL), IV Lock, PRN Other, IV Flush, Starting on Sun06/06/23 at 1105, Until Sun06/06/23 at 1825, For 24 hours, Do not flush if lock, PICC, or central line not in place; IV infusing or unable to flush. Given 06/06/2023 1:30 PM EST 500 Units Immune Globulin Human-IVIG 10% (Privigen) IV 40 g 40 g, IV Piggyback, ONCE, 1 dose, On Sun06/06/23 at 1245, Total dose = 45 gm [...] Infusion duration = 1.8 hours Rate Change 06/06/2023 12:35 PM EST 423 mL/hr Start Infusion 06/06/2023 12:23 PM EST 40 g 212 mL/h r Immune Globulin Human-IVIG 10% (Privigen) IV 5 g 5 g, IV Piggyback, ONCE, 1 dose, On Sun06/06/23 at 1215, Total dose = 45 gm [...] Infusion duration = 1.8 hours Rate Change 06/06/2023 12:05 PM EST 106 mL/hr Rate Change 06/06/2023 11:50 AM EST 53 mL/hr Start Infusion 06/06/2023 11:35 AM EST 5 g 26 mL/hr NSS infusion 500 mL, Intravenous, at 50 mL/hr, CONTINUOUS, Starting on Sun06/06/23 at 1215, Until Sun06/06/23 at 1825 Start Infusion 06/06/2023 11:00 AM EST 500 mL 50 mL/hr sodium chloride 0.9 % flush central line 10 mL 10 mL, IV Push, PRN Other, IV Flush, Starting on Sun06/06/23 at 1105, Until Sun06/06/23 at 1825, For 24 hours, Do not flush if lock, PICC, or central line not in place; IV infusing or unable to flush. Given 06/06/2023 1:30 PM EST 10 mL Given 06/06/2023 11:00 AM EST 10 mL documented in this encounter Care Teams Warehouse Team Leader Relationship Specialty Start Date End Date Ruel Fajardo MD [address] [place] [address] [place] [address] PCP - General Family Medicine 10/17/19 documented as of this encounter
[2023-09-12] MEDS: MoRPHine SULFATE 4 MG/ML 1 ML CARP\\VIAL IV PRN (10:45)
--- OUTSIDE RECORDS SUMMARY | 2023-09-12 10:45 | External Medical Summary | Summary of Care ---
Author Name Unknown Organization [facility] Address [address] [facility] [place] [address] Phone [phone] Care Team Providers Care Manager Voice Name Role Phone Blessing Fajardo MD Primary Care Provide r Reason for Visit * Reason Onset Date Comments Medication Refill 07/30/2023 Encounter Details Date Type Department Care Team (Late st Contact Info) Description 07/30/2023 Refill Family Medicine [address] [phone] Rodney Crawford MD [address] [place] [address] [place] [address] HTN, goal below 140/90 Allergies Active Allergy Reactions Criticality Noted Date Comments Amoxicillin Rash 07/17/2011 documented as of this encounter (statuses as of 07/31/2023) Medications Medication Sig Dispensed Refills Start Date [...] (vitamin B-2)Indications: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 0 Active Metoprolol Succinate ER 25 MG Oral Tablet Extended Release 24 Hour (toPROL XL)Indications:HTN, goal below 140/90 Take 1 Tablet by mouth in the morning. And can take 4 tabs daily during IVIG treatment days. 150 Tablet 1 01/24/2023 Active Mometasone Furoate 50 MCG/ACT Nasal Suspension inhale 2 SPRAYS INTO EACH NOSTRIL DAILY. 17 g 11 01/23/2023 Active Spiriva Respimat 2.5 MCG/ACT Inhalation Aerosol Solution (Tiotropium [place] Monohydrate)Indicat ions:Severe persistent asthma without complication Inhale [...] above 160/100 60 Tablet 0 07/31/2023 Active hydrALAZINE HCl 25 MG Oral Tablet (Apresoline)Indicat ions:HTN, goal below 140/90 Take 1 Tablet by mouth every 4 hours as needed for Hypertension. If Blood pressure above 160/100 60 Tablet 0 07/02/2023 Discontinue d(Refill) Hospital, Clinic, or Other Facility [...] 100 mgIndications:Eosinophi lic asthma 100 mg SC [id number] 05/22/2023 04/22/2024 Active documented as of this encounter (statuses as of 07/31/2023) Active Problems Problem Noted Date Diagnosed Date [...] as of this encounter (statuses as of 07/31/2023) Resolved Problems Problem Noted Date Diagnosed Date Resolved Date Wedge compression fracture o f unspecified lumbar vertebra, initial encounter for closed fracture 09/06/2022 09/06/2022 Compression of lumbar vertebra 11/18/2020 01/20/2021 Asthma, moderate persistent 08/29/2011 10/16/2011 Asthma exacerbation 07/17/2011 05/13/20 12 documented as of this encounter (statuses as of 07/31/2023) Immunizations Name Administration Dates Next Due COVID-19 [...] Date Smoking Tobacco: Former Cigarettes 2 3 Q uit: 06/25/1972 Smokeless Tobacco: Former Snuff Comments:no passive [...] encounter Miscellaneous Notes * Telephone Encounter - Blessing Fajardo MD - 07/31/2023 9:47 AM EST Signed Prescriptions: Disp Refills hydrALAZINE HCl 25 MG Oral Tablet (Apresol*60 Tab*0 Sig: Take 1 Tablet by mouth every 4 hours as needed for Hypertension. If Blood pressure above 160/100 Authorizing Provider: BLESSING FAJARDO * Telephone Encounter - Fidelina Khoury RN - 07/31/2023 9:39 AM ESTPending Prescriptions: Disp Refills hydrALAZINE HCl 25 MG Oral Tablet (Apresol*60 Tab*0 Sig: Take 1 Tablet by mouth every 4 hours as needed for Hypertension. If Blood pressure above 160/100 * Telephone Encounter - Fidelina Khoury RN - 07/31/2023 9:38 AM EST Pending Prescriptions: Disp Refills hydrALAZINE HCl 25 MG Oral Tablet (Apreso*60 Tab*0 Sig: Take 1 Tablet by mouth every 4 hours as needed for Hypertension. 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 S/P UPPP (uvulopalatopharyngoplasty) Z98.890 Current chronic use of systemic steroids Z79.52 Chronic sphenoidal sinusitis J32.3 Other chronic sinusitis J32.8 Chronic maxillary sinusitis J32.0 Dizziness R42 History of left mastoidectomy Z90.89 Sensorineural hearing loss (SNHL) of right ear H90.5 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 Osteoporosis M81.0 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, 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 Wheeze R06.2 Severe obesity with body mass index (BMI) of 35.0 to 39.9 with serious comorbidity ([facility]) E66.01 Mild aortic valve stenosis I35.0 Labs: Lab Results Component Value Date/Time CREATININE - [facility] 1.0 09/06/2022 03:40 PM CREATININE - [facility] 1.0 05/12/2020 02:25 PM CREATININE, RANDOM URINE - [facility] 220 09/06/2022 03:40 PM CREATININE, RANDOM URINE - [facility] 75 08/07/2019 02:56 PM CREATININE-OUTSIDE LAB 0.87 12/30/2018 12:00 AM Lab Results Component Value Date/Time POTASSIUM - [facility] 4.5 09/06/2022 03:40 PM POTASSIUM - [facility] 4.1 05/12/2020 02:25 [...] Results Component Value Date/Time ALT - [facility] 30 09/06/2022 03:40 PM ALT - [facility] 43 10/17/2019 12:47 PM ALTERNARIA IGE - [facility] <0.10 08/29/2011 10:55 AM Hemoglobin AIC Results: Lab Results Component Value Date/Time HEMOGLOBIN A1C - [facility] 4.9 02/20/2022 12:35 PM * Telephone Encounter - Yohana Khoury - 07/30/2023 6:12 PM ESTPending Prescriptions: Disp Refills hydrALAZINE HCl 25 MG Oral Tablet (Apresol*60 Tab*0 Sig: Take 1Tablet by mouth every 4 hours as needed for Hypertension. If Blood pressure above 160/100 documented in this encounter Plan of Treatment Upcoming Encounters Date Type Department Care Team (Late st Contact Info) Description 07/31/2023 11:00 AM EST Hem/Onc Treatment Hematology/Oncology Treatment, [place] 200 [place] [address] [place], Chair 5 Hem Onc Scenery 200 [facility] [place], [place] [address] 08/01/2023 11:30 AM EST Hem/Onc Treatment Hematology/Oncology Treatment, [address], [place] [address] 08/02/2023 11:00 AM EST Hem/Onc Treatment Hematology/Oncology Treatment, [address], [place] [address] 08/09/2023 1:00 PM EST Nurse Only Pulmonary Medicine, [facility] [address] [place], [facility] Pulmonary [facility] [address] 08/27/2023 11:00 AM EST Hem/Onc Treatment Hematology/Oncology Treatment, [address], [place] [address] [place], Chair 3 Hem Onc Scenery 200 [facility] [place], [place] [address] 08/28/2023 11:30 AM EST Hem/Onc Treatment Hematology/Oncology Treatment, [address], [place] [address] [place], Chair 4 Hem Onc Scenery 200 [facility] [place], [place] [address] 08/29/2023 11:00 AM EST Hem/Onc Treatment Hematology/Oncology Treatment, [address], [place] [address] [place], Chair 9 Hem Onc Scenery 200 [facility] [place] [address] 08/30/2023 11:45 AM EST Hem/Onc Treatment Hematology/Oncology Treatment, [address], [place] [address] [place], Chair 2 Hem Onc Scenery 200 [facility] [place] [address] 10/19/2023 11:15 AM EDT Office Visit Otolaryngology [facility] [address] [place] [address] Martita Gaston MD [address] [place] [address] 11/14/2023 3:00 PM EDT Office Visit Family Medicine [address] [place] [phone] Blessing Fajardo MD [address] [place] [address] [place] [address] 11/20/2023 1:30 PM EDT Office Visit Allergy/Immunology [facility] [place] [address] [place] [address] Adriel Montalvo MD [address] [place] [address] 07/25/2024 1:40 PM EST Office Visit Neurology [facility] [place] [address] [place] [address] John Dodge DO [address] [place] [address] Scheduled Procedures Name Priority Associated Diagnoses Date/Ti me COLONOSCOPY FLEXIBLE PROXIMA L DIAGNOSTIC Recall History of colonic polyps Health Maintenance Due Date Last Done Comments DTaP,Tdap,and Td Vaccines (1 - Tdap) 1974 Zoster Vaccines (1 of 2) 1974 Pneumococcal Vaccine: 65+ Years (3 - PPSV23 or PCV20) 06/03/2020 06/03/2019, 03/18/2012 Hepatitis B (2 of 2 [...] D LEVEL ONCE IN A LIFETIME-USE SMARTSET# [id number] Completed 11/18/2020 Influenza Vaccine (FLU shot) Completed , 05/15/2022, 06/09/2021, Additional history exists GARDASIL-HPV IMMUNIZATION SERIES Aged Out No longer eligible based on patient's age to complete this topic MENINGOCOCCAL (MENACTRA/MENVEO) Aged Out No longer eligible based on patient's age to complete this topic documented as of this encounter Medical Devices Not on filedocumented as of this encounter Visit Diagnoses Diagnosis HTN, goal below 140/90 Unspecified essential hypertension documented in this encounter Care Teams Manager Voice Relationship Specialty Start Date End Date Blessing Fajardo MD [address] [place] [address] [place] [address] PCP - General Family Medicine 10/17/19 documented as of this encounter
--- OUTSIDE RECORDS SUMMARY | 2023-09-12 10:45 | External Medical Summary | Summary of Care ---
Author Name Unknown Organization [facility] Address [address] [place] [address] Phone [phone] Care Team Providers Care Shear Operator Automatic Name Role Phone Ruel Fajardo MD Primary Care Provide r Reason for Visit * Reason Onset Date Comments Advice 08/06/2023 Approval for Nuc ala Encounter Details Date Type Department Care Team (Late st Contact Info) Description 08/06/2023 Telephone Pulmonary Medicine, [facility] [address] [facility] [place] [address] Services, Scheduling [address] [place] [address] Advice (Approval for Nucala) Allergies Active Allergy Reactions Criticality Noted Date Comments Amoxicillin Rash 07/17/2011 documented as of this encounter (statuses as of 08/08/2023) Medications Medication Sig Dispensed Refills Start Date [...] (vitamin B-2)Indications: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 150 Tablet 1 01/24/2023 Discontinue d(Refill) Hospital, Clinic, or Other Facility [...] 100 mgIndications:Eosinophi lic asthma 100 mg SC [id number] 05/22/2023 04/22/2024 Active documented as of this encounter (statuses as of 08/08/2023) Active Problems Problem Noted Date Diagnosed Date [...] as of this encounter (statuses as of 08/08/2023) Resolved Problems Problem Noted Date Diagnosed Date Resolved Date Wedge compression fracture o f unspecified lumbar vertebra, initial encounter for closed fracture 09/06/2022 09/06/2022 Compression of lumbar vertebra 11/18/2020 01/20/2021 Asthma, moderate persistent 08/29/2011 10/16/2011 Asthma exacerbation 07/17/2011 05/13/20 12 documented as of this encounter (statuses as of 08/08/2023) Immunizations Name Administration Dates Next Due COVID-19 [...] encounter Miscellaneous Notes * Telephone Encounter - Dinora Yeung LPN - 08/08/2023 3:39 PM EST Please see the my g encounter for today. Pt's med approved and they are aware * Telephone Encounter - Cristina Perales OSA - 08/06/2023 2:51 PM EST Patients calling in about patients Nucala shot. Patient was to get the assist program again this year. This helps pay for but the gateways to Nucala is waiting on forms from the drs office to get that approved, otherwise it is 800 a shot.They are calling to check to see if this paper work was sent out. She stated that it is sent out every May was hoping that it was approved for this appt. They can not afford this otherwise. Can you please call [phone] the home number. documented in this encounter Plan of Treatment Upcoming Encounters Date Type Department Care Team (Late st Contact Info) Description 08/09/2023 1:00 PM EST Nurse Only Pulmonary Medicine, [facility] [address] [address] , Nurse Pulmonary [address] [place] [address] 08/27/2023 11:00 AM EST Hem/Onc Treatment Hematology/Oncology Treatment, [place] [address] [place] [address] [place], Chair 3 Hem Onc Scenery [address] [place], [place] [address] 08/28/2023 11:30 AM EST Hem/Onc Treatment Hematology/Oncology Treatment, [place] 200 [facility] [place] [address] [place], Chair 4 Hem Onc Scenery [address] [place], [place] [address] 08/29/2023 11:00 AM EST Hem/Onc Treatment Hematology/Oncology Treatment, [place] 200 [facility] [place] [address] [place], Chair 9 Hem Onc Scenery [address] [place] [address] 08/30/2023 11:45 AM EST Hem/Onc Treatment Hematology/Oncology Treatment, [place] 200 [facility], [place] [address] [place], Chair 2 Hem Onc Scenery [address] [place] [address] 10/19/2023 11:15 AM EDT Office Visit Otolaryngology [facility] [address] [place] [address] Martita Gaston MD 132 [facility] [place] [address] 11/14/2023 3:00 PM EDT Office Visit Family Medicine [address] [place] [phone] Ruel Fajardo MD [address] [place] [address] [place] [address] 11/20/2023 1:30 PM EDT Office Visit Allergy/Immunology [facility] [place] [address] [place] [address] Adriel Montalvo MD [address] [place] [address] 07/25/2024 1:40 PM EST Office Visit Neurology [facility] [address] [place] [address] John Dodge, DO [address] [place] [address] Scheduled Procedures Name Priority Associated Diagnoses Date/Ti [...] D LEVEL ONCE IN A LIFETIME-USE SMARTSET# [id number] Completed 11/18/2020 Influenza Vaccine (FLU shot) Completed , 05/15/2022, 06/09/2021, Additional history exists GARDASIL-HPV IMMUNIZATION SERIES Aged Out No longer eligible based on patient's age to complete this topic MENINGOCOCCAL (MENACTRA/MENVEO) Aged Out No longer eligible based on patient's age to complete this topic documented as of this encounter Medical Devices Not on filedocumented as of this encounter Care Teams Shear Operator Automatic Relationship Specialty Start Date End Date Ruel Fajardo MD [address] [place] [address] [place] [phone] PCP - General Family Medicine 10/17/19 documented as of this encounter
--- OUTSIDE RECORDS SUMMARY | 2023-09-12 10:45 | External Medical Summary | Summary of Care ---
Author Name Unknown Organization [facility] Address [address] [facility] [place] [address] Phone [phone] Care Team Providers Care Founder Ceo & President Name Role Phone Ruel Fajardo MD Primary Care Provide r Reason for Visit * Reason Onset Date Comments Medication Refill 08/07/2023 Encounter Details Date Type Department Care Team (Late st Contact Info) Description 08/07/2023 Refill Family Medicine [address] [phone] Ruel Fajardo MD [address] [place] [address] [place] [address] HTN, goal below 140/90 Allergies [...] P (chronic inflammatory demyelinating polyneuropathy) ([facility]) Take by mouth 4 Tablets in the [...] ons:CIDP (chronic inflammatory demyelinating polyneuropathy) ([facility]) 3 tabs at bedtime 90 Capsule 5 [...] Respimat 2.5 MCG/ACT Inhalation Aerosol Solution (Tiotropium [place] Monohydrate)Indicat ions:Severe persistent asthma without complication Inhale [...] treatment days. 150 Tablet 1 08/08/2023 Active Metoprolol Succinate ER 25 MG Oral [...] 100 mgIndications:Eosinophi lic asthma 100 mg SC [id number] 05/22/2023 04/22/2024 Active documented as of this [...] encounter Miscellaneous Notes * Telephone Encounter - Mark Schneider [facility] - 08/08/2023 9:48 AM ESTSigned Prescriptions: Disp Refills Metoprolol Succinate ER 25 MG Oral Tablet *150 Ta*1 Sig: Take 1 Tablet by mouth in the morning. And can take 4 tabs daily during IVIG treatment days.Authorizing Provider: Yana FAJARDO User: MARK BOCANEGRA documented in this encounter Plan of Treatment Upcoming Encounters Date Type Department Care Team (Late st Contact Info) Description 08/09/2023 1:00 PM EST Nurse Only Pulmonary Medicine, [facility] 132 [facility] [place] [address] Gw, Nurse Pulmonary [address] [place] [address] 08/27/2023 11:00 AM EST Hem/Onc Treatment Hematology/Oncology Treatment, [place] 200 [place] [address] Eden, Chair 3 Hem Onc Scenery [address] [place], [place] [address] 08/28/2023 11:30 AM EST Hem/Onc Treatment Hematology/Oncology Treatment, [place] 200 [place] [address] Eden, Chair 4 Hem Onc Scenery [address] [place], [place] [address] 08/29/2023 11:00 AM EST Hem/Onc Treatment Hematology/Oncology Treatment, [place] [address] [place] [address] Eden, Chair 9 Hem Onc Scenery [address] [place] [address] 08/30/2023 11:45 AM EST Hem/Onc Treatment Hematology/Oncology Treatment, [place] 200 [facility], [place] [address] Eden, Chair 2 Hem Onc Scenery [address] [place] [address] 10/19/2023 11:15 AM EDT Office Visit Otolaryngology [facility] 132 [facility] [place] [address] Martita Gaston MD 132 [facility] [place] [address] 11/14/2023 3:00 PM EDT Office Visit Family Medicine [address] [place] [phone] Ruel Fajardo MD [address] [place] [address] [place] [address] 11/20/2023 1:30 PM EDT Office Visit Allergy/Immunology [facility] [place] [address] [place] [address] Adriel Montalvo MD 200 [facility] [place], [place] [address] 07/25/2024 1:40 PM EST Office Visit Neurology [facility] 200 [facility] [place] [address] John Dodge, 200 [facility] [place] [address] Scheduled Procedures Name Priority Associated Diagnoses Date/Ti [...] D LEVEL ONCE IN A LIFETIME-USE SMARTSET# 31123 Completed 11/18/2020 Influenza Vaccine (FLU shot) Completed [...] hypertension documented in this encounter Care Teams Founder Ceo & President Relationship Specialty Start Date End Date Ruel Fajardo MD [address] [place] [address] [place] [phone] PCP - General Family Medicine 10/17/19 documented as of this encounter
--- OUTSIDE RECORDS SUMMARY | 2023-09-12 10:45 | External Medical Summary | Summary of Care ---
Author Name Unknown Organization [facility] Address [address] [facility] [address] Phone [phone] Care Team Providers Care Customer Accounts Advisor Name Role Phone Ruel Fajardo MD Primary Care Provide r Reason for Visit * Reason Comments IV Therapy Privigen 3/4 * Episode Based Medications (Routine) - Authorized Specialty Diagnoses / Procedures Referred By Contac t Referred To Contact Diagnoses CIDP (chronic inflammatory demyelinating polyneuropathy) ([facility]) Procedures [place] INJ IVIG PRIVIGEN 500 MG John Dodge, DO [address] [place] [address] Anc Hem/Onc Joesph Harmon DEPT CLOSED - 05/08/23 200 [facility] [place] [address] Referral ID Status Reason Start Date Expiration Date V isits Requested Visits Authorized [id number] Authorized 03/16/2023 03/16/2024 [id number] Encounter Details Date Type Department Care Team (Latest Contact Info) Description 08/01/2023 11:30 AM EST Hem/Onc Treatment Hematology/Oncolog y Treatment, [place] [address] [place] [address] CIDP (chronic inflammatory demyelinating polyneuropathy) ([facility])* Allergies Active Allergy Reactions Criticality Noted Date Comments Amoxicillin Rash 07/17/2011 documented as of this encounter (statuses as of 08/01/2023) Medications Medication Sig Dispensed Refills Start Date [...] Tablet (vitamin B-2)Indications:CIDP (chronic inflammatory demyelinating polyneuropathy) ([facility]) Take by mouth 4 Tablets in [...] Capsule (Neurontin)Indication s:CIDP (chronic inflammatory demyelinating polyneuropathy) ([facility]) 3 tabs [...] Respimat 2.5 MCG/ACT Inhalation Aerosol Solution (Tiotropium [place] Monohydrate)Indicatio ns:Severe persistent asthma without complication Inhale [...] above 160/100 60 Tablet 0 07/31/2023 Active Hospital, Clinic, or Other Facility Administered [...] 100 mgIndications:Eosinophi lic asthma 100 mg SC [id number] 05/22/2023 04/22/2024 Active documented as of this encounter (statuses as of 08/01/2023) Active Problems Problem Noted Date Diagnosed Date [...] as of this encounter (statuses as of 08/01/2023) Resolved Problems Problem Noted Date Diagnosed Date Resolved Date Wedge compression fracture o f unspecified lumbar vertebra, initial encounter for closed fracture 09/06/2022 09/06/2022 Compression of lumbar vertebra 11/18/2020 01/20/2021 Asthma, moderate persistent 08/29/2011 10/16/2011 Asthma exacerbation 07/17/2011 05/13/20 12 documented as of this encounter (statuses as of 08/01/2023) Immunizations Name Administration Dates Next Due COVID-19 [...] Sign Reading Time Taken Comments Blood Pressure 151/93 08/01/2023 1:15 PM EST Pulse 70 08/01/2023 1:15 PM EST Temperature 36.3 C (97.4 F) 08/01/2023 11:[address] Respiratory Rate 16 08/01/2023 11:30 AM EST Oxygen Saturation 94% 08/01/2023 1:15 PM EST Inhaled Oxygen Concentration - - Weight - - Height - - Body Mass Index - - documented in this encounter Nursing Notes * Dorota Ardon RN - 08/01/2023 1:54 PM EST Goals: Patient will remain free from injury. Possible barriers to meeting goals: ambulating with IV pole, diagnosis, use of cane Stability of the patient: Moderately stable - low risk of patient condition declining or worsening Summary regarding today's goals: Met: pt remained free of harm today Patient tolerated treatment well without any acute issues or problems. Patient left IV in place fortx tomorrow. Patient left facility in stable condition and denied any further needs. * Dorota Ardon RN - 08/01/2023 1:18 PM EST Chair 8. IV in place from tx yesterday, CDI/WNL/good blood return. Patient feeling well, no acute issues or complaints, just tired today more so than the previous days. Safety and Risk for Injury Patient will remain free from injury. Ensure appropriate safety devices are available. Provide and maintain safe environment. documented in this encounter Plan of Treatment Upcoming Encounters Date Type Department Care Team (Late st Contact Info) Description 08/02/2023 11:00 AM EST Hem/Onc Treatment Hematology/Oncology Treatment, [address], [place] [address] 08/09/2023 1:00 PM EST Nurse Only Pulmonary Medicine, [facility] [address] , Nurse Pulmonary [address] [facility] [address] 08/27/2023 11:00 AM EST Hem/Onc Treatment Hematology/Oncology Treatment, [address], [place] [address] [place], Chair [address] [facility] [address] [place] [address], [place] [address] 08/28/2023 11:30 AM EST Hem/Onc Treatment Hematology/Oncology Treatment, [address], [place] [address] Eden, Chair 4 Hem Onc Scenery [address] [place] [address], [place] [address] 08/29/2023 11:00 AM EST Hem/Onc Treatment Hematology/Oncology Treatment, [address] [place] [address] [place], Chair 9 Hem Onc Scenery [address] [place], [place] [address] [address] 08/30/2023 11:45 AM EST Hem/Onc Treatment Hematology/Oncology Treatment, [place] 200 [facility] [place] [address] Park, Chair 2 Hem Onc [address] [place] [address] 10/19/2023 11:15 AM EDT Office Visit Otolaryngology [facility] [address] [place] [address] Martita Gaston MD [address] [place] [address] 11/14/2023 3:00 PM EDT Office Visit Family Medicine [address] [phone] Ruel Fajardo MD [address] [place] [address] [place] [address] 11/20/2023 1:30 PM EDT Office Visit Allergy/Immunology [facility] 200 [facility] [place] [address] Adriel Montalvo MD 200 [facility] [place] [address] 07/25/2024 1:40 PM EST Office Visit Neurology [facility] 200 [facility] [place] [address] John Dodge, 200 [facility] [place] [address] Scheduled Procedures Name Priority Associated Diagnoses Date/Ti [...] D LEVEL ONCE IN A LIFETIME-USE SMARTSET# 71329 Completed 11/18/2020 Influenza Vaccine (FLU shot) Completed [...] (chronic inflammatory demyelinating polyneuropathy) ([facility])- Primary Chronic inflammatory demyelinating polyneuritis documented in this encounter Administered Medications Active Administered Medications - up to 3 most recent administrations Medication Order MAR Action Action Date Dose Rate Site diphenhydrAMINE (Benadryl) inj 50 mg 50 mg, IV Push, ONCE PRN Other, Hypersensitivity Reaction, Starting on Sun08/01/23 at 1133, Until Sun08/02/23 at 1132, For 24 hours EPINEPHrine 1 MG/ML inj 0.3 mg 0.3 mg, Intramuscular, ONCE PRN Other, Hypersensitivity Reaction or Anaphylaxis, Starting on Sun08/01/23 at 1133, Until Allison 08/02/23 at 1132, For 24 hours hEParin 100 UNIT/ML Lock Flush inj 500 Units 500 Units (5 mL), IV Lock, PRN Other, IV Flush, Starting on Sun08/01/23 at 1133, Until Allison 08/02/23 at 1132, For 24 hours, Do not flush if lock, PICC, or central line not in place; IV infusing or unable to flush. Given 08/01/2023 1:35 PM EST 500 Units Hydrocortisone Sod Suc (PF) (Solu-Cortef) inj 100 mg 100 mg, IV Push, ONCE PRN Other, Hypersensitivity Reaction, Starting on Sun08/01/23 at 1133, Until Allison 08/02/23 at 1132, For 24 hours NSS infusion 500 mL, Intravenous, at 50 mL/hr, CONTINUOUS, Starting on Sun08/01/23 at 1245, Until Sun08/01/23 at 2244 Start Infusion 08/01/2023 11:35 AM EST 500 mL 50 mL/hr sodium chloride 0.9 % flush central line 10 mL 10 mL, IV Push, PRN Other, IV Flush, Starting on Sun08/01/23 at 1133, Until Allison 08/02/23 at 1132, For 24 hours, Do not flush if lock, PICC, or central line not in place; IV infusing or unable to flush. Given 08/01/2023 1:35 PM EST 10 mL Inactive Administered Medications - up to 3 most recent administrations Medication Order MAR Action Action Date Dose Rate Site Acetaminophen (Tylenol) tab 650 mg 650 mg, Oral, ONCE, On Sun08/01/23 at 1245, For 1 dose, Maximum of 4 grams (4000 mg) per day. Given 08/01/2023 11:35 AM EST 650 mg diphenhydrAMINE (Benadryl) cap 25 mg 25 mg, Oral, ONCE, On Sun08/01/23 at 1245, For 1 dose Given 08/01/2023 11:35 AM EST 25 mg Immune Globulin Human-IVIG 10% (Privigen) IV 40 g 40 g, IV Piggyback, ONCE, 1 dose, On Sun08/01/23 at 1315, Total dose = 45 gm [...] Infusion duration = 1.8 hours Rate Change 08/01/2023 12:45 PM EST 423 mL/hr Rate Change 08/01/2023 12:30 PM EST 212 mL/hr Start Infusion 08/01/2023 12:18 PM EST 40 g 106 mL/h r Immune Globulin Human-IVIG 10% (Privigen) IV 5 g 5 g, IV Piggyback, ONCE, 1 dose, On Sun08/01/23 at 1245, Total dose = 45 gm [...] Infusion duration = 1.8 hours Rate Change 08/01/2023 12:15 PM EST 106 mL/hr Rate Change 08/01/2023 12:00 PM EST 53 mL/hr Start Infusion 08/01/2023 11:45 AM EST 5 g 26 mL/hr documented in this encounter Care Teams Customer Accounts Advisor Relationship Specialty Start Date End Date Ruel Fajardo MD [address] [place] [address] [place] [address] PCP - General Family Medicine 10/17/19 documented as of this encounter
--- OUTSIDE RECORDS SUMMARY | 2023-09-12 10:45 | External Medical Summary | Summary of Care ---
Author Name Unknown Organization [facility] Address [address] [facility] [place] [address] Phone [phone] Care Team Providers Care Dentist Name Role Phone Ruel Fajardo MD Primary Care Provide r Reason for Visit * Precert (Within 10 days (routine)) - Authorized Specialty Diagnoses / Procedures Referred By Contac t Referred To Contact Pulmonary Diseases / Pulmonary Diagnoses Severe persistent asthma, uncomplicated Procedures MEPOLIZUMAB INJ, 1 MG John Nielsen MD Pulm Function Lab [place] [address] [address] [facility] [place] [address] Referral ID Status Reason Start Date Expiration Date V isits Requested Visits Authorized [id number] Authorized Precert 08/02/2022 06/24/2099 999 [id number] Encounter Details Date Type Department Care Team (Late st Contact Info) Description 08/09/2023 1:00 PM EST Nurse Only Pulmonary Medicine, [facility] 132 [facility] [place] [address] Gw, Nurse Pulmonary 132 [facility] [place] [address] Arrived Allergies Active Allergy Reactions Criticality Noted Date Comments Amoxicillin Rash 07/17/2011 documented as of this encounter (statuses as of 08/09/2023) Medications Medication Sig Dispensed Refills Start Date [...] (vitamin B-2)Indications:CIDP (chronic inflammatory demyelinating polyneuropathy) ([facility]) Take by mouth 4 Tablets in the [...] Respimat 2.5 MCG/ACT Inhalation Aerosol Solution (Tiotropium [place] Monohydrate)Indicatio ns:Severe persistent asthma without complication Inhale [...] 100 mgIndications:Eosinophi lic asthma 100 mg SC [id number] 05/22/2023 04/22/2024 Active documented as of this encounter (statuses as of 08/09/2023) Active Problems Problem Noted Date Diagnosed Date [...] as of this encounter (statuses as of 08/09/2023) Resolved Problems Problem Noted Date Diagnosed Date Resolved Date Wedge compression fracture o f unspecified lumbar vertebra, initial encounter for closed fracture 09/06/2022 09/06/2022 Compression of lumbar vertebra 11/18/2020 01/20/2021 Asthma, moderate persistent 08/29/2011 10/16/2011 Asthma exacerbation 07/17/2011 05/13/20 12 documented as of this encounter (statuses as of 08/09/2023) Immunizations Name Administration Dates Next Due COVID-19 [...] Q uit: 06/[birth year]1972 Smokeless Tobacco: Former Snuff Tobacco Cessation:Counseling Given: Not Answered Comments:no passive smoke Alcohol Use Standard Drinks/Week [...] Sign Reading Time Taken Comments Blood Pressure - - Pulse 88 08/09/2023 12:57 PM EST Temperature 35.8 C (96.4 F) 08/09/2023 12:[address] Respiratory Rate 16 08/09/2023 12:57 PM EST Oxygen Saturation 98% 08/09/2023 12:57 PM EST Inhaled Oxygen Concentration - - Weight - - Height - - Body Mass Index - - documented in this encounter Plan of Treatment Upcoming Encounters Date Type Department Care Team (Late st Contact Info) Description 08/27/2023 11:00 AM EST Hem/Onc Treatment Hematology/Oncology Treatment, [place] 200 [facility] [place] [address] [place], Chair 3 Hem Onc [address] [place] [address] 08/28/2023 11:30 AM EST Hem/Onc Treatment Hematology/Oncology Treatment, [place] 200 [facility] [place] [address] [place], Chair 4 Hem Onc [facility] [address] [place] [address] [place] [address] 08/29/2023 11:00 AM EST Hem/Onc Treatment Hematology/Oncology Treatment, [place] 200 [facility], [place] [address] Eden, Chair 9 Hem Onc [facility] 200 [place] [address] 08/30/2023 11:45 AM EST Hem/Onc Treatment Hematology/Oncology Treatment, [place] [facility] [address] [place], Chair 2 Hem Onc [facility] 200 [place] [address] 09/12/2023 1:00 PM EDT Nurse Only Pulmonary Medicine, [facility] 132 [facility] [place] [address] Gw, [facility] Pulmonary [facility] [address] 10/19/2023 11:15 AM EDT Office Visit Otolaryngology [facility] 132 [facility] [place] [address] Martita Gaston MD [address] [facility] [address] 11/14/2023 3:00 PM EDT Office Visit Family Medicine [address] [phone] Ruel Fajardo MD [address] [place] [address] [place] [address] 11/20/2023 1:30 PM EDT Office Visit Allergy/Immunology [facility] 200 [place] [address] Adriel Montalvo MD 200 [place] [address] 07/25/2024 1:40 PM EST Office Visit Neurology [facility] [address] [place] [address] John Dodge, DO [address] [place] [address] Scheduled Procedures Name Priority Associated Diagnoses Date/Ti [...] D LEVEL ONCE IN A LIFETIME-USE SMARTSET# 79108 Completed 11/18/2020 Influenza Vaccine (FLU shot) Completed , 05/15/2022, 06/09/2021, Additional history exists GARDASIL-HPV IMMUNIZATION SERIES Aged Out No longer eligible based on patient's age to complete this topic MENINGOCOCCAL (MENACTRA/MENVEO) Aged Out No longer eligible based on patient's age to complete this topic documented as of this encounter Medical Devices Not on filedocumented as of this encounter Administered Medications Active Administered Medications - up to 3 most recent administrations Medication Order MAR Action Action Date Dose Rate Site Mepolizumab (Nucala) inj 100 mg 100 mg, Subcutaneous, [id number], First dose on Sun05/22/23 at 1445, Last dose on Sun03/25/24 at 1445, For 12 doses Given 08/09/2023 12:55 PM EST 100 mg Arm Left Upper Given 07/04/2023 2:50 PM EST 100 mg Ar m Left Upper Given 05/22/2023 2:20 PM EST 100 mg Ar m Left Upper documented in this encounter Care Teams Dentist Relationship Specialty Start Date End Date Ruel Fajardo MD [address] [place] [address] [place] [address] PCP - General Family Medicine 10/17/19 documented as of this encounter
--- OUTSIDE RECORDS SUMMARY | 2023-09-12 10:45 | External Medical Summary | Summary of Care ---
Author Name Unknown Organization [facility] Address [address] [facility] [place] [address] Phone [phone] Care Team Providers Care Special Delivery Clerk Name Role Phone Ruel Fajardo MD Primary Care Provide r Reason for Visit * Reason Comments IV Therapy Privigen. * Episode Based Medications (Routine) - Authorized Specialty Diagnoses / Procedures Referred By Contac t Referred To Contact Diagnoses CIDP (chronic inflammatory demyelinating polyneuropathy) ([facility]) Procedures ME INJ IVIG PRIVIGEN 500 MG John Dodge, DO [address] [place] [address] Anc Hem/Onc Joesph Harmon DEPT CLOSED - 05/08/[address] [place] [phone] Referral ID Status Reason Start Date Expiration Date V isits Requested Visits Authorized [id number] Authorized 03/16/2023 03/16/2024 [id number] Encounter Details Date Type Department Care Team (Latest Contact Info) Description 07/31/2023 11:00 AM EST Hem/Onc Treatment Hematology/Oncolog y Treatment, [facility] [address] [place] [address] [place], Chair 5 Hem Onc Scenery [address] [place] [address] CIDP (chronic inflammatory demyelinating polyneuropathy) [facility] Tablet (vitamin B-2)Indications:CIDP (chronic inflammatory demyelinating polyneuropathy) ([facility]) Take by mouth 4 Tablets in [...] Capsule (Neurontin)Indication s:CIDP (chronic inflammatory demyelinating polyneuropathy) ([facility]) [...] Respimat 2.5 MCG/ACT Inhalation Aerosol Solution (Tiotropium [place] Monohydrate)Indicatio ns:Severe persistent asthma without complication Inhale [...] legs,Numbness and tingling of foot,Lumbar compression fracture ([facility]) TAKE ONE TABLET BY MOUTH TWICE DAILY [...] 100 mgIndications:Eosinophi lic asthma 100 mg SC [id number] 05/22/2023 04/22/2024 Active documented as of this [...] Sign Reading Time Taken Comments Blood Pressure 131/76 07/31/2023 10:50 AM EST Pulse 78 07/31/2023 10:50 AM EST Temperature 36.3 C (97.3 F) 07/31/2023 10:[address] Respiratory Rate 18 07/31/2023 10:50 AM EST Oxygen Saturation 92% 07/31/2023 10:50 AM EST Inhaled Oxygen Concentration - - Weight - - Height - - Body Mass Index - - documented in this encounter Nursing Notes * Araceli Luong RN - 07/31/2023 1:20 PM EST Goals: Patient will remain free from injury. Possible barriers to meeting goals: Fall risk d/t ambulation with IV pole. Stability of the patient: Moderately stable - low risk of patient condition declining or worsening Summary regarding today's goals: Met: Patient remained free of injury. PIV remains in place, flushed with saline and heparin and locked and capped. Patient tolerated procedure well. Discharged in stable condition. * Araceli Luong RN - 07/31/2023 10:58 AM EST Chair 7. Patient arrived for privigen treatment with no complaints. PIV flushed and has positive blood return. Safety and Risk for Injury Patient will remain free from injury. Ensure appropriate safety devices are available. Provide and maintain safe environment. documented in this encounter Plan of Treatment Upcoming Encounters Date Type Department Care Team (Late st Contact Info) Description 08/01/2023 11:30 AM EST Hem/Onc Treatment Hematology[address] [address] 08/02/2023 11:00 AM EST Hem/Onc Treatment Hematology/On[address], [address] [address] 08/09/2023 1:00 PM EST Nurse Only Pulmonary Medicine, [facility] [address] [place] [address] Gw, Nurse Pulmonary 132 [place] [address] 08/27/2023 11:00 AM EST Hem/Onc Treatment Hematology/Oncology [address], [address] [address] [place], Chair 3 Hem Onc [address] [address] 08/28/2023 11:30 AM EST Hem/Onc Treatment Hematology/Oncology Treatment, [address] [address] [place], Chair 4 Hem Onc [address] [address] 08/29/2023 11:00 AM EST Hem/Onc Treatment Hematology/Oncology Treatment, [address] [address] [place], Chair 9 Hem Onc [facility] 200 [facility] [place] [address] 08/30/2023 11:45 AM EST Hem/Onc Treatment Hematology/Oncology Treatment, [place] 200 [facility] [place] [address] [place], Chair 2 Hem Onc [facility] 200 [facility] [place] [address] 10/19/2023 11:15 AM EDT Office Visit Otolaryngology [facility] [address] [address] Martita Gaston MD [address] [place] [address] 11/14/2023 3:00 PM EDT Office Visit Family Medicine [address] [phone] Ruel Fajardo MD [address] [place] [address] [place] [address] 11/20/2023 1:30 PM EDT Office Visit Allergy/Immunology [facility] [place] 200 [facility] [place] [address] Adriel Montalvo MD 200 [facility] [place] [address] 07/25/2024 1:40 PM EST Office Visit Neurology [facility] [place] 200 [facility] [place] [address] John Dodge, [address] [facility] [address] [place], [place] [address] Scheduled Procedures Name Priority Associated Diagnoses Date/Ti [...] D LEVEL ONCE IN A LIFETIME-USE SMARTSET# 32516 Completed 11/18/2020 Influenza Vaccine (FLU shot) Completed [...] ONCE PRN Other, Hypersensitivity Reaction, Starting on Sun07/31/23 at 1055, Until Sun08/01/23 at 1054, For 24 hours EPINEPHrine 1 MG/ML inj 0.3 mg 0.3 mg, Intramuscular, ONCE PRN Other, Hypersensitivity Reaction or Anaphylaxis, Starting on Sun07/31/23 at 1055, Until Sun08/01/23 at 1054, For 24 hours hEParin 100 UNIT/ML Lock Flush inj 500 Units 500 Units (5 mL), IV Lock, PRN Other, IV Flush, Starting on Sun07/31/23 at 1055, Until Sun08/01/23 at 1054, For 24 hours, Do not flush if lock, PICC, or central line not in place; IV infusing or unable to flush. Given 07/31/2023 1:15 PM EST 500 Units Hydrocortisone Sod Suc (PF) (Solu-Cortef) inj 100 mg 100 mg, IV Push, ONCE PRN Other, Hypersensitivity Reaction, Starting on Sun07/31/23 at 1055, Until Sun08/01/23 at 1054, For 24 hours NSS infusion 500 mL, Intravenous, at 50 mL/hr, CONTINUOUS, Starting on Sun07/31/23 at 1200, Until Sun07/31/23 at 2159 Start Infusion 07/31/2023 10:57 AM EST 500 mL 50 mL/hr sodium chloride 0.9 % flush central line 10 mL 10 mL, IV Push, PRN Other, IV Flush, Starting on Sun07/31/23 at 1055, Until Sun08/01/23 at 1054, For 24 hours, Do not flush if lock, PICC, or central line not in place; IV infusing or unable to flush. Given 07/31/2023 1:15 PM EST 10 mL Inactive Administered Medications - up to 3 most recent administrations Medication Order MAR Action Action Date Dose Rate Site Acetaminophen (Tylenol) tab 650 mg 650 mg, Oral, ONCE, On Sun07/31/23 at 1200, For 1 dose, Maximum of 4 grams (4000 mg) per day. Given 07/31/2023 10:57 AM EST 650 mg diphenhydrAMINE (Benadryl) cap 25 mg 25 mg, Oral, ONCE, On Sun07/31/23 at 1200, For 1 dose Given 07/31/2023 10:57 AM EST 25 mg Immune Globulin Human-IVIG 10% (Privigen) IV 40 g 40 g, IV Piggyback, ONCE, 1 dose, On Sun07/31/23 at 1230, Total dose = 45 gm [...] Infusion duration = 1.8 hours Rate Change 07/31/2023 12:20 PM EST 423 mL/hr Start Infusion 07/31/2023 12:05 PM EST 40 g 212 mL/h r Immune Globulin Human-IVIG 10% (Privigen) IV 5 g 5 g, IV Piggyback, ONCE, 1 dose, On Sun07/31/23 at 1200, Total dose = 45 gm [...] Infusion duration = 1.8 hours Rate Change 07/31/2023 11:50 AM EST 106 mL/hr Rate Change 07/31/2023 11:35 AM EST 53 mL/hr Start Infusion 07/31/2023 11:19 AM EST 5 g 26 mL/hr documented in this encounter Care Teams Special Delivery Clerk Relationship Specialty Start Date End Date Ruel Fajardo MD [address] [place] [address] [place] [phone] PCP - General Family Medicine 10/17/19 documented as of this encounter
--- OUTSIDE RECORDS SUMMARY | 2023-09-12 10:45 | External Medical Summary | Summary of Care ---
Author Name Unknown Organization [facility] Address [address] [facility] [place] [address] Phone [phone] Care Team Providers Care Mattress And Boxsprings Supervisor Name Role Phone Ruel Fajardo MD Primary Care Provide r Reason for Visit * Reason Comments IV Therapy IVIG 09/26 * Episode Based Medications (Routine) - Authorized Specialty Diagnoses / Procedures Referred By Contac t Referred To Contact Diagnoses CIDP (chronic inflammatory demyelinating polyneuropathy) ([facility]) Procedures [place] INJ IVIG PRIVIGEN 500 MG John Dodge, DO [address] [place] [address] Anc Hem/Onc Joesph Harmon DEPT CLOSED - 05/08/[address] [phone] Referral ID Status Reason Start Date Expiration Date V isits Requested Visits Authorized [id number] Authorized 03/16/2023 03/16/2024 999 [id number] Encounter Details Date Type Department Care Team (Latest Contact Info) Description 06/07/2023 9:00 AM EST Hem/Onc Treatment Hematology/Oncolog y Treatment, [facility] [address] [place] [address] [place], Chair 3 Hem Onc Scenery [address] [place] [address] CIDP (chronic inflammatory demyelinating polyneuropathy) ([facility])* Allergies Active Allergy Reactions Criticality Noted Date [...] (vitamin B-2)Indications:CI DP (chronic inflammatory demyelinating polyneuropathy) ([facility]) Take by mouth 4 Tablets in the [...] Capsule (Neurontin)Indicat ions:CIDP (chronic inflammatory demyelinating polyneuropathy) ([facility]) 3 tabs at bedtime 90 Capsule 5 [...] Respimat 2.5 MCG/ACT Inhalation Aerosol Solution (Tiotropium [place] Monohydrate)Indica tions:Severe persistent asthma without complication Inhale [...] 100 mgIndications:Eosinophi lic asthma 100 mg SC [id number] 05/22/2023 04/22/2024 Active documented as of this [...] AM EST Hem/Onc Treatment Hematology/Oncology Treatment, [address], [place] [address] [place], Chair 3 Hem Onc Scenery [address] [place] [address] 08/28/2023 11:30 AM EST Hem/Onc Treatment Hematology/Oncology Treatment, [address], [place] [address] [place], Chair 4 Hem Onc Scenery [address] [place] [address] 08/29/2023 11:00 AM EST Hem/Onc Treatment Hematology/Oncology Treatment, [place] 200 [facility], [place] [address] [place], Chair 9 Hem Onc Scenery [address] [place], [place] [address] 08/30/2023 11:45 AM EST Hem/Onc Treatment Hematology/Oncology Treatment, [address], [place] [address] [place], Chair 2 Hem Onc Scenery [address] [place], [place] [address] 09/12/2023 1:00 PM EDT Nurse Only Pulmonary Medicine, [facility] [address] [address] Gw, Nurse Pulmonary [address] [address] 10/19/2023 11:15 AM EDT Office Visit Otolaryngology [facility] [address] [address] Martita Gaston MD [address] [place] [address] 11/14/2023 3:00 PM EDT Office Visit Family Medicine [address] [place] [phone] Ruel Fajardo MD [address] [place] [address] [place] [address] 11/20/2023 1:30 PM EDT Office Visit Allergy/Immunology [facility] [address] [place] [address] Adriel Montalvo MD [address] [place] [address] 07/25/2024 1:40 PM EST Office Visit Neurology [facility] [address] [place] [address] John Dodge, [address] [place] [address] Scheduled Procedures Name Priority Associated Diagnoses Date/Ti [...] D LEVEL ONCE IN A LIFETIME-USE SMARTSET# 61303 Completed 11/18/2020 Influenza Vaccine (FLU shot) Completed [...] CIDP (chronic inflammatory demyelinating polyneuropathy) ([facility])- Primary Chronic inflammatory demyelinating polyneuritis documented in [...] mL/hr documented in this encounter Care Teams Mattress And Boxsprings Supervisor Relationship Specialty Start Date End Date Ruel Fajardo MD [address] [place] [address] [place] [phone] PCP - General Family Medicine 10/17/19 documented as of this encounter
--- OUTSIDE RECORDS SUMMARY | 2023-09-12 10:45 | External Medical Summary | Summary of Care ---
Author Name Unknown Organization [facility] Address [address] [place] [address] Phone [phone] Care Team Providers Care Mechanical Field Engineer Name Role Phone Ruel Fajardo MD Primary Care Provide r Reason for Visit * Reason Onset Date Comments Advice 08/06/2023 Approval for Nuc ala Encounter Details Date Type Department Care Team (Late st Contact Info) Description 08/06/2023 Telephone Pulmonary Medicine, [facility] [address] [facility] [place] [address] Services, Scheduling [address] [place] [address] Advice (Approval for Nucala) Allergies Active Allergy Reactions Criticality Noted Date Comments Amoxicillin Rash 07/17/2011 documented as of this encounter (statuses as of 08/06/2023) Medications Medication Sig Dispensed Refills Start Date [...] B-2)Indications:CIDP (chronic inflammatory demyelinating polyneuropathy) ([facility]) Take by mouth 4 Tablets in the [...] s:CIDP (chronic inflammatory demyelinating polyneuropathy) ([facility]) 3 tabs at bedtime 90 Capsule 5 [...] Respimat 2.5 MCG/ACT Inhalation Aerosol Solution (Tiotropium [place] Monohydrate)Indicatio ns:Severe persistent asthma without complication [...] 100 mgIndications:Eosinophi lic asthma 100 mg SC [id number] 05/22/2023 04/22/2024 Active documented as of this encounter (statuses as of 08/06/2023) Active Problems Problem Noted Date Diagnosed Date [...] as of this encounter (statuses as of 08/06/2023) Resolved Problems Problem Noted Date Diagnosed Date Resolved Date Wedge compression fracture o f unspecified lumbar vertebra, initial encounter for closed fracture 09/06/2022 09/06/2022 Compression of lumbar vertebra 11/18/2020 01/20/2021 Asthma, moderate persistent 08/29/2011 10/16/2011 Asthma exacerbation 07/17/2011 05/13/20 12 documented as of this encounter (statuses as of 08/06/2023) Immunizations Name Administration Dates Next Due COVID-19 [...] encounter Miscellaneous Notes * Telephone Encounter - Cristina Perales OSA [...] afford this otherwise. Can you please call [phone] the home number. documented in this encounter Plan of Treatment Upcoming Encounters Date Type Department Care Team (Late st Contact Info) Description 08/09/2023 1:00 PM EST Nurse Only Pulmonary Medicine, [facility] 132 [facility] [place] [address] Gw, Nurse Pulmonary 132 [facility] [place] [address] 08/27/2023 11:00 AM EST Hem/Onc Treatment Hematology/Oncology Treatment, [place] [facility] [address] [place], Chair 3 [facility] [address] [place] [address] [place] [address] 08/28/2023 11:30 AM EST Hem/Onc Treatment Hematology/Oncology Treatment, [place] [facility] [address] [place], Chair 4 Hem Onc Scenery 200 [facility] [place] [address] 08/29/2023 11:00 AM EST Hem/Onc Treatment Hematology/Oncology Treatment, [place] 200 [facility], [place] [address] [place], Chair 9 Hem Onc Scenery 200 [facility] [place] [address] 08/30/2023 11:45 AM EST Hem/Onc Treatment Hematology/Oncology Treatment, [place] [facility] [address] [place], Chair 2 Hem [facility] 200 [facility] [place] [address] 10/19/2023 11:15 AM EDT Office Visit Otolaryngology [facility] 132 [facility] [place] [address] Martita Gaston MD 132 [facility] [place] [address] 11/14/2023 3:00 PM EDT Office Visit Family Medicine [address] [place] [phone] Ruel Fajardo MD [address] [place] [address] [place] [address] 11/20/2023 1:30 PM EDT Office Visit Allergy/Immunology [facility] [place] 200 [facility] [place] [address] Adriel Montalvo MD 200 [facility] [place] [address] 07/25/2024 1:40 PM EST Office Visit Neurology [facility] [place] 200 [facility] [place] [address] John Dodge DO 200 [facility] [place] [address] Scheduled Procedures Name Priority Associated Diagnoses Date/Ti [...] D LEVEL ONCE IN A LIFETIME-USE SMARTSET# 34677 Completed 11/18/2020 Influenza Vaccine (FLU shot) Completed , 05/15/2022, 06/09/2021, Additional history exists GARDASIL-HPV IMMUNIZATION SERIES Aged Out No longer eligible based on patient's age to complete this topic MENINGOCOCCAL (MENACTRA/MENVEO) Aged Out No longer eligible based on patient's age to complete this topic documented as of this encounter Medical Devices Not on filedocumented as of this encounter Care Teams Mechanical Field Engineer Relationship Specialty Start Date End Date Ruel Fajardo MD [address] [place] [address] [place] [phone] PCP - General Family Medicine 10/17/19 documented as of this encounter
--- OUTSIDE RECORDS SUMMARY | 2023-09-12 10:45 | External Medical Summary | Summary of Care ---
Author Name Unknown Organization [facility] Address [address] [facility] [address] Phone [phone] Care Team Providers Care Pantograph Transferrer Name Role Phone Ruel Fajardo MD Primary Care Provide r Reason for Visit * Reason Comments IV Therapy Privigen 09/26 * Episode Based Medications (Routine) - Authorized Specialty Diagnoses / Procedures Referred By Contac t Referred To Contact Diagnoses CIDP (chronic inflammatory demyelinating polyneuropathy) ([facility]) Procedures AK INJ IVIG PRIVIGEN 500 MG John Dodge, DO [address] [place] [address] Anc Hem/Onc Joesph Harmon DEPT CLOSED - 05/08/23 [address] [facility] [place] [phone] Referral ID Status Reason Start Date Expiration Date V isits Requested Visits Authorized [id number] Authorized 03/16/2023 03/16/2024 [id number] Encounter Details Date Type Department Care Team (Latest Contact Info) Description 08/02/2023 11:00 AM EST Hem/Onc Treatment Hematology/Oncolog y Treatment, [place] [address] [place] [address] CIDP (chronic inflammatory demyelinating polyneuropathy) ([facility])* Allergies Active Allergy Reactions Criticality Noted Date Comments Amoxicillin Rash 07/17/2011 documented as of this encounter (statuses as of 08/02/2023) Medications Medication Sig Dispensed Refills Start Date [...] B-2)Indications:CIDP (chronic inflammatory demyelinating polyneuropathy) ([facility]) Take by mouth 4 Tablets [...] Respimat 2.5 MCG/ACT Inhalation Aerosol Solution (Tiotropium [place] Monohydrate)Indicatio ns:Severe persistent asthma without complication Inhale [...] 100 mgIndications:Eosinophi lic asthma 100 mg SC [id number] 05/22/2023 04/22/2024 Active documented as of this encounter (statuses as of 08/02/2023) Active Problems Problem Noted Date Diagnosed Date [...] as of this encounter (statuses as of 08/02/2023) Resolved Problems Problem Noted Date Diagnosed Date Resolved Date Wedge compression fracture o f unspecified lumbar vertebra, initial encounter for closed fracture 09/06/2022 09/06/2022 Compression of lumbar vertebra 11/18/2020 01/20/2021 Asthma, moderate persistent 08/29/2011 10/16/2011 Asthma exacerbation 07/17/2011 05/13/20 12 documented as of this encounter (statuses as of 08/02/2023) Immunizations Name Administration Dates Next Due COVID-19 [...] Sign Reading Time Taken Comments Blood Pressure 122/67 08/02/2023 11:14 AM EST Pulse 73 08/02/2023 11:14 AM EST Temperature 36.7 C (98.1 F) 08/02/2023 11:[address] Respiratory Rate 18 08/02/2023 11:14 AM EST Oxygen Saturation 95% 08/02/2023 11:14 AM EST Inhaled Oxygen Concentration - - Weight - - Height - - Body Mass Index - - documented in this encounter Nursing Notes * Linsey Haq RN - 08/02/2023 1:18 PM EST Goals: Patient will remain free from injury. Possible barriers to meeting goals: use of cane, benadryl pretreat may cause drowsiness Stability of the patient: Moderately stable - low risk of patient condition declining or worsening Summary regarding today's goals: Met: Pt remained free of injury during treatment Patient tolerated treatment well and was discharged in stable condition. Coverage by Bandar Ardon RN. * Linsey Haq RN - 08/02/2023 11:10 AM EST Chair 7 Pt arrives for day 4 of privigen. He is ambulating with a cane. He states he's doing well and denies any acute complaints or concerns. IV site remains intact, good blood return and flushes easily, NSS infusing. Safety and Risk for Injury Patient will remain free from injury. Ensure appropriate safety devices are available. Provide and maintain safe environment. documented in this encounter Plan of Treatment Upcoming Encounters Date Type Department Care Team (Late st Contact Info) Description 08/09/2023 1:00 PM EST Nurse Only Pulmonary Medicine, [facility] [address] [address] [place], [facility] Pulmonary [address] [facility] [address] 08/27/2023 11:00 AM EST Hem/Onc Treatment Hematology/Oncology Treatment, [address], [place] [address] [place], Chair 3 Hem [address] [address] 08/28/2023 11:30 AM EST Hem/Onc Treatment Hematology/[address], [address] [address] [place], Chair 4 Hem Onc [facility] [address] [place], [place] [address] [address] 08/29/2023 11:00 AM EST Hem/Onc Treatment Hematology/[address], [address] [address] [place], Chair 9 Hem Onc [facility] [address] [place], [place] [address] [address] 08/30/2023 11:45 AM EST Hem/Onc Treatment Hematology/[address], [address] [address] [place], Chair 2 Hem Onc [facility] [address] [place] [address] 10/19/2023 11:15 AM EDT Office Visit Otolaryngology [facility] [address] [place] [address] Martita Gaston MD [address] [place] [address] 11/14/2023 3:00 PM EDT Office Visit Family Medicine [address] [phone] Ruel Fajardo MD [address] [place] [address] [place] [address] 11/20/2023 1:30 PM EDT Office Visit Allergy/Immunology [facility] [address] [place] [address] Adriel Montalvo MD [address] [place] [address] 07/25/2024 1:40 PM EST Office Visit Neurology [facility] [address] [place] [address] John Dodge, [address] [place] [address] Scheduled Procedures Name Priority Associated Diagnoses Date/Ti [...] D LEVEL ONCE IN A LIFETIME-USE SMARTSET# [id number] Completed 11/18/2020 Influenza Vaccine (FLU shot) Completed [...] CIDP (chronic inflammatory demyelinating polyneuropathy) ([facility])- Primary Chronic inflammatory demyelinating polyneuritis documented in this encounter Administered Medications Active Administered Medications - up to 3 most recent administrations Medication Order MAR Action Action Date Dose Rate Site diphenhydrAMINE (Benadryl) inj 50 mg 50 mg, IV Push, ONCE PRN Other, Hypersensitivity Reaction, Starting on Allison 08/02/23 at 1102, Until 08/03/23 at 1101, For 24 hours EPINEPHrine 1 MG/ML inj 0.3 mg 0.3 mg, Intramuscular, ONCE PRN Other, Hypersensitivity Reaction or Anaphylaxis, Starting on Allison 08/02/23 at 1102, Until Sun08/03/23 at 1101, For 24 hours hEParin 100 UNIT/ML Lock Flush inj 500 Units 500 Units (5 mL), IV Lock, PRN Other, IV Flush, Starting on Allison 08/02/23 at 1102, Until Sun08/03/23 at 1101, For 24 hours, Do not flush if lock, PICC, or central line not in place; IV infusing or unable to flush. Hydrocortisone Sod Suc (PF) (Solu-Cortef) inj 100 mg 100 mg, IV Push, ONCE PRN Other, Hypersensitivity Reaction, Starting on Sun08/02/23 at 1102, Until Sun08/03/23 at 1101, For 24 hours NSS infusion 500 mL, Intravenous, at 50 mL/hr, CONTINUOUS, Starting on Allison 08/02/23 at 1215, Until Sun08/02/23 at 2214 Start Infusion 08/02/2023 11:00 AM EST 500 mL 50 mL/hr sodium chloride 0.9 % flush central line 10 mL 10 mL, IV Push, PRN Other, IV Flush, Starting on Sun08/02/23 at 1102, Until Sun08/03/23 at 1101, For 24 hours, Do not flush if lock, PICC, or central line not in place; IV infusing or unable to flush. Inactive Administered Medications - up to 3 most recent administrations Medication Order MAR Action Action Date Dose Rate Site Acetaminophen (Tylenol) tab 650 mg 650 mg, Oral, ONCE, On Sun08/02/23 at 1215, For 1 dose, Maximum of 4 grams (4000 mg) per day. Given 08/02/2023 11:05 AM EST 650 mg diphenhydrAMINE (Benadryl) cap 25 mg 25 mg, Oral, ONCE, On Allison 08/02/23 at 1215, For 1 dose Given 08/02/2023 11:05 AM EST 25 mg Immune Globulin Human-IVIG 10% (Privigen) IV 40 g 40 g, IV Piggyback, ONCE, 1 dose, On Allison 08/02/23 at 1245, Total dose = 45 gm [...] Infusion duration = 1.8 hours Rate Change 08/02/2023 12:20 PM EST 423 mL/hr Start Infusion 08/02/2023 12:08 PM EST 40 g 212 mL/h r Immune Globulin Human-IVIG 10% (Privigen) IV 5 g 5 g, IV Piggyback, ONCE, 1 dose, On Allison 08/02/23 at 1215, Total dose = 45 gm [...] Infusion duration = 1.8 hours Rate Change 08/02/2023 12:05 PM EST 212 mL/hr Rate Change 08/02/2023 11:50 AM EST 106 mL/hr Rate Change 08/02/2023 11:33 AM EST 53 mL/hr documented in this encounter Care Teams Pantograph Transferrer Relationship Specialty Start Date End Date Ruel Fajardo MD [address] [place] [address] [place] [id number] PCP - General Family Medicine 10/17/19 documented as of this encounter
--- OUTSIDE RECORDS SUMMARY | 2023-09-12 10:46 | External Medical Summary | Summary of Care ---
Author Name Unknown Organization [facility] Address [address] [facility] [place] [address] Phone [phone] Care Team Providers Care Retort Load Expediter Name Role Phone Ruel Fajardo MD Primary Care Provide r Reason for Visit * Reason Comments Return Neuro Encounter Details Date Type Department Care Team (Late st Contact Info) Description 07/24/2023 1:40 PM EST Office Visit Neurology Joesph Harmon [place] 200 [facility] [place] [address] John Dodge, DO 200 [facility] [place] [address] Foot drop, right*; CIDP (chronic inflammatory demyelinating polyneuropathy) ([facility]); Weakness of both lower extremities Allergies Active Allergy Reactions Criticality Noted Date Comments Amoxicillin Rash 07/17/2011 documented as of this encounter (statuses as of 07/24/2023) Medications Medication Sig Dispensed Refills Start Date [...] demyelinating polyneuropathy) ([facility]) Take by mouth 4 Tablets in [...] Capsule (Neurontin)Indication s:CIDP (chronic inflammatory demyelinating polyneuropathy) ([facility] Respimat 2.5 MCG/ACT Inhalation Aerosol Solution (Tiotropium [place] Monohydrate)Indicatio ns:Severe persistent asthma without complication Inhale [...] FOR WHEEZING 18 g 5 06/20/2023 Active hydrALAZINE HCl 25 MG Oral Tablet (Apresoline)Indicatio ns:HTN, goal below 140/90 Take 1 Tablet by mouth every 4 hours as needed for Hypertension. If Blood pressure above 160/100 60 Tablet 0 07/02/2023 Active Cyclobenzaprine HCl 5 MG Oral Tablet [...] the morning. 90 Tablet 1 07/24/2023 Active Hospital, Clinic, or Other Facility Administered [...] 100 mgIndications:Eosinophi lic asthma 100 mg SC [id number] 05/22/2023 04/22/2024 Active documented as of this encounter (statuses as of 07/24/2023) Active Problems Problem Noted Date Diagnosed Date [...] as of this encounter (statuses as of 07/24/2023) Resolved Problems Problem Noted Date Diagnosed Date Resolved Date Wedge compression fracture o f unspecified lumbar vertebra, initial encounter for closed fracture 09/06/2022 09/06/2022 Compression of lumbar vertebra 11/18/2020 01/20/2021 Asthma, moderate persistent 08/29/2011 10/16/2011 Asthma exacerbation 07/17/2011 05/13/20 12 documented as of this encounter (statuses as of 07/24/2023) Immunizations Name Administration Dates Next Due COVID-19 [...] Sign Reading Time Taken Comments Blood Pressure 132/80 07/24/2023 1:29 PM EST Pulse 75 07/24/2023 1:29 PM EST Temperature 36.7 C (98.1 F) 07/24/2023 1:29 PM ES T Respiratory Rate 18 07/24/2023 1:29 PM EST Oxygen Saturation 98% 07/24/2023 1:29 PM EST Inhaled Oxygen Concentration - - Weight 106.6 kg (235 lb 1.6 oz) 07/24/2023 1:29 PM EST Height - - Body Mass Index 32.79 03/12/2023 1:01 PM EDT documented in this encounter Progress Notes * John Dodge, DO - 07/24/2023 1:32 PM EST Progress Note - Neurology [facility] [address] [place] [address] NAME: Theron Gao Date of : 1955 Date of Visit: 12/22/21 Chief Complaint: Chief Complaint Patient presents with Return Neuro Subjective: A 67-year-old male with a 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 Hepresents with his . Patient was last seen by myself in December of 2022. Patient was started on IVIG in March of 2021 has been receiving 2 grams/kg monthly divided over 4-5 days. Starting IVIG he burns s noted improvement in his symptoms. He has less numbness in his feet and is walking is improved. He does note a positive family history of neuropathy particularly his grandfather. He does have knownlumbar disc disease as well as been seen by orthopedic spine. He is for the most part tolerating the IVIG well although he feels fatigued after receiving it. He denies any new or worsening symptoms. HOME MEDICATIONS : Current Outpatient Medications Medication Sig Dispense Refill IBUPROFEN 200 MG PO CAPS None Entered METAXALONE 800 MG PO TABS take one tab by mouth three times a day as needed Pseudoephedrine-guaiFENesin ER 120-1200 MG Tablet Extended Release 12 Hour Take 1 Tablet by mouth in the morning and 1 Tablet before bedtime. As needed. Anacin 400-32 MG Oral Tablet (Aspirin-Caffeine) Take 1 Tab by mouth daily. Take 3 tabs every morning and 2 tabs at bedtime Multi-Vitamins Oral Tablet Take 1 Tablet by mouth in the morning. Nucala 100 MG Subcutaneous Solution Reconstituted (Mepolizumab) Inject 1 Each under the skin every 4 weeks. 1 Each 11 Zoster Vac Recomb Adjuvanted 50 MCG/0.5ML Intramuscular Suspension Reconstituted (Shingrix) Inject 0.5 mL into a large muscle now and repeat dose in 60 to 180 days 1 Each 1 DULoxetine HCl 60 MG Oral Capsule Delayed Release Particles (Cymbalta) Take 1 Cap by mouth daily. Do not cut, crush or chew 30 Cap 2 Meloxicam 7.5 MG Oral Tablet Take 1 Tab by mouth daily. 30 Tab 5 Vitamin B-2 100 MG Oral Tablet (vitamin B-2) Take by mouth 4 Tablets in the morning. 120 Tablet 3 Wixela Inhub 500-50 MCG/ACT Inhalation Aerosol Powder Breath Activated (Fluticasone-Salmeterol) INHALE ONE PUFF BY MOUTH TWICE DAILY 180 Each 3 Atorvastatin Calcium 10 MG Oral Tablet (Lipitor) Take by mouth 1 Tablet in the morning. 30 Tablet 2 Gabapentin 100 MG Oral Capsule (Neurontin) 3 tabs at bedtime 90 Capsule 5 Albuterol Sulfate (2.5 MG/3ML) 0.083% Inhalation Nebulization Solution (Proventil) INHALE ONE VIAL VIA NEBULIZER EVERY 4 HOURS NEEDED FOR WHEEZING OR SHORTNESS OF BREATH 180 mL 1 Losartan Potassium 25 MG Oral Tablet (Cozaar) Take 2 Tablets by mouth in the morning. 180 Tablet 1 Fish Oil 1000 MG Oral Capsule Take 1 Capsule by mouth in the morning. D3-1000 25 MCG (1000 UT) Oral Capsule (Cholecalciferol) Take 1 Capsule by mouth in the morning. Metoprolol Succinate ER 25 MG Oral Tablet Extended Release 24 Hour (toPROL XL) Take 1 Tablet by mouth in the morning. And can take 4 tabs daily during IVIG treatment days. 150 Tablet 1 Mometasone Furoate 50 MCG/ACT Nasal Suspension inhale 2 SPRAYS INTO EACH NOSTRIL DAILY. 17 g 11 Spiriva Respimat 2.5 MCG/ACT Inhalation Aerosol Solution (Tiotropium [place] Monohydrate) Inhale 2 Puffs by mouth in the morning. 12 g 2 Montelukast Sodium 10 MG Oral Tablet (Singulair) Take 1 Tablet by mouth in the morning. 90 Tablet 3 hydroCHLOROthiazide 12.5 MG Oral Capsule (Hydrodiuril) Take 3 Capsules by mouth in the morning. - on days of IVIG infusion. 60 Capsule 1 Albuterol Sulfate HFA 108 (90 Base) MCG/ACT Inhalation Aerosol Solution INHALE 2 PUFFS BY MOUTH EVERY 4 HOURS NEEDED FOR WHEEZING 18 g 5 hydrALAZINE HCl 25 MG Oral Tablet (Apresoline) Take 1 Tablet by mouth every 4 hours as needed for Hypertension. If Blood pressure above 160/100 60 Tablet 0 Cyclobenzaprine HCl 5 MG Oral Tablet (Flexeril) TAKE ONE TABLET BY MOUTH TWICE DAILY NEEDED FOR MUSCLE SPASM 30 Tablet 1 predniSONE 10 MG Oral Tablet (Deltasone) 1-3 tabs daily as directed 90 Tablet 0 Azelastine HCl 137 MCG/SPRAY Nasal Solution Administer 2 Sprays into nostril in the morning and 2 Sprays before bedtime. 30 mL 11 hydroCHLOROthiazide 25 MG Oral Tablet (Hydrodiuril) Take 1 Tablet by mouth in the morning. 90 Tablet 1 Current Facility-Administered Medications Medication Dose Route Frequency Provider Last Rate Last Admin Albuterol Sulfate (Proventil) (2.5 MG/3ML) 0.083% inhalation solution 2.5 mg 2.5 mg Nebulizer PRN MattsonAnatoliy PA-C 2.5 mg at 09/27/22 1350 Albuterol Sulfate (Proventil) (5 MG/ML) 0.5% *conc* inhalation solution 2.5 mg 2.5 mg Nebulizer PRAnatoliy Garcia PA-C Mepolizumab (Nucala) inj 100 mg 100 mg Subcutaneous Q4 Weeks Charlie Velasquez MD 100 mg at 450 Review of patient's allergies indicates: Allergen Reactions Amoxicillin Rash PHYSICAL EXAMINATION: Vital Signs: BP 132/80 | Pulse 75 | Temp 36.7 C (98.1 F) (Tympanic) | Resp 18 | Wt 106.6 kg (235 lb 1.6 oz) | SpO2 98% | BMI 32.79 kg/m | BSA 2.31 m EXAM: Constitutional: appears stated age, no distress Head and Face: normocephalic and atraumatic Eyes: normal lids, normal conjunctiva Neck: supple Respiratory: normal effort Cardiovascular: regular rhythm and normal pulses Abdomen: non distended Skin: no rashes, lesions, or ulcers noted Psychiatric: normal judgement and insight, normal mood and normal affect NEUROLOGIC EXAMINATION: Appearance: no acute distress Orientation: awake, alert and oriented x 3 Mental Status: alert Attention: normal Knowledge: appropriate Language: no aphasia Speech: no dysarthria Cranial Nerves: CN 2 - no visual defect on confrontation and pupils round, equal, reactive to light CN 3, 4, 6 - extra-ocular movements intact and no nystagmus CN 5 - facial sensation intact CN 7 - no facial asymmetry CN 8 - intact hearing CN 9, 10 - palate symmetric CN 11 - good shoulder shrug CN 12 - tongue midline Gait: Unsteady gait, ambulating with a cane, right leg abduction, high steppage gait Coordination: no ataxia with finger to nose testing Sensory: Sensation intact to light touch in the lower extremities Muscle Tone: Flail foot L>R Muscle exam: Ankle dorsiflexion weakness in both legs compared to previous right 3+ out of 5, left 4/5 Reflexes: attenuated at the knees bilateral, absent at the ankles LABORATORY: Labs reviewed and pertinent findings are indicated below: Component Latest Ref Rng 09/06/2022 BUN 6 - 20 mg/dL 20 Creatinine 0.6 - 1.2 mg/dL 1.0 Estimated Glomerular Filtration Rate >=60 mL/min 84 Sodium 135 - 146 mmol/L 139 Potassium 3.5 - 5.1 mmol/L 4.5 Chloride 98 - 107 mmol/L 106 CO2 22 - 32 mmol/L 23 Anion Gap 7 - 15 mmol/L 10 Glucose 70 - 120 mg/dL 88 Albumin 3.8 - 5.0 g/dL 3.8 AST 10 - 50 U/L 30 Alkaline Phosphatase 35 - 130 U/L 74 Bilirubin, Total <=1.2 mg/dL 0.4 Calcium 8.4 - 10.2 mg/dL 9.3 Protein 6.0 - 8.3 g/dL 7.0 ALT 10 - 50 U/L 30 WBC 4.00 - 10.80 K/uL 10.63 Neutrophils % 40.0 - 75.0 % 70.0 Lymphocytes % 18.0 - 42.0 % 18.2 Monocytes % 1.0 - 11.0 % 10.1 Eosinophils % 0.0 - 6.0 % 0.7 Basophils % 0.0 - 2.0 % 0.5 Immature Granulocytes % 0.0 - 2.0 % 0.5 Absolute Neutrophils 1.80 - 7.70 K/uL 7.46 Absolute Lymphocytes 1.00 - 4.80 K/ul 1.93 Absolute Monocytes 0.00 - 1.10 K/uL 1.07 Absolute Eosinophils 0.00 - 0.70 K/uL 0.07 Absolute Basophils 0.00 - 0.20 K/uL 0.05 Absolute Immature Granulocytes 0.00 - 0.20 K/uL 0.05 WBC 4.00 - 10.80 K/uL 10.63 RBC 4.50 - 5.25 M/uL 4.60 HGB 14.0 - 16.8 g/dL 14.7 HCT 40.0 - 48.4 % 46.4 MCV 82.0 - 99.5 fL 100.9 MCH 27.0 - 34.0 pg 32.0 MCHC 32.0 - 36.0 g/dL 31.7 RDW 11.5 - 15.5 % 14.6 PLT 140 - 400 K/uL 345 MPV 6.6 - 11.1 fL 10.5 nRBCs <=0 /100 WBCs 0 Triglycerides <=174 mg/dL 314 (H) Cholesterol <200 mg/dL 277 (H) HDL Cholesterol >39 mg/dL 58 Non-HDL Cholesterol <=159 mg/dL 219 (H) LDL Cholesterol <=129 mg/dL 156 (H) Albumin, Random Urine mg/dL <1.20 Creatinine, Random Urine mg/dL 220 Albumin / Creatinine Ratio, Urine <30 mg/g Creat <5 Legend: (H) High Review of prior Diagnostic Tests: EMG performed on 04/24/23: There is evidence of a sensory greater than motor polyneuropathy with axonal and mild demyelinatingfeatures. There is a superimposed mild mixed demyelinating and axonal left median neuropathy at thelevel of the wrist not causing denervation. There is a moderately severe mixed axonal and demyelinating left ulnar neuropathy in the across elbow segment causing chronic but not active denervation. This study appears to be similar to a prior study of 2020. There is mild chronic denervation in left biceps and triceps suggestive of a chronic cervical polyradiculopathy. In comparison to a study of 2020 there is new decreased recruitment and chronic denervation in the left tibialis anterior. The sensory responses of the left upper extremity are of decreased amplitudecompared to the prior study suggestive of a mildly progressive axonal neuropathy. NCV & EMG Findings: Sural sensory responses absent. The left peroneal motor response recorded at the SANRDA was absent. The left peroneal motor response recorded at the tibialis anterior was of decreased amplitude and normal conduction velocity. The left posterior tibial motor response of decreased amplitude, mildly prolonged distal latency and mildly decreased conduction velocity. No F-wave was obtainable. The left median distal motor latency was normal although relatively prolonged compared to the left ulnar distal motor latency, the amplitude is normal and the conduction velocity normal the left median F-wave latency is mildly prolonged. The left ulnar motor response shows focal motor slowing in the across elbow segment of greater than 20 m/sec. The left median sensory latency from palm to wrist is mildly prolonged and the amplitude is reduced the left ulnar sensory response from palm to wrist is of decreased amplitude. The left radial sensory response is of decreased amplitude. EMG shows mild chronic denervation in the left APB, a median innervated muscle and moderate chronicdenervation in the left FDI and FCU. There is mild polyphasia in the left biceps and triceps. There is moderately severe length dependent decreased recruitment with polyphasia. No myopathic units are noted in the proximal left lower or left upper extremity Review of prior Radiology Studies: MRI L SPINE W WO CONTRAST-10/13/2019 2:09 pm HISTORY back pain with hx of compression COMPARISON No comparisons TECHNIQUE Sagittal T1, T2 axial T1-T2 sagittal,coronal T2 weighted images of lumbar spine are obtained. Postcontrast images are obtained. FINDINGS There are 5 lumbar type vertebrae. Conus terminates at T12-L1 no abnormal enhancement.. Severe disc disease at L3-L4 and L4-L5 levels. There is severe disc disease asymmetric to the rightat L5-S1 level. There is anterior spurring. There is a sclerotic lesion in the T12 vertebral body measuring 5 mm. Sacroiliac joints are normal.Iliopsoas muscles are normal. Tiny 5 mm sclerotic lesion in the right iliac wing. Findings by level: L1-2: Mild facet arthropathy without canal or foraminal narrowing. L2-3: Disc osteophyte complex, moderate facet arthropathy, moderate canal narrowing and mild bilateral foraminal narrowing. L3-4: Moderate facet arthropathy ligamentum flavum prominence moderate to severe canal narrowing and severe left foraminal narrowing. L4-5: Moderate facet arthropathy moderate narrowing of each lateral recess severe right foraminal narrowing. Right lateral disc osteophyte indents the extraforaminal right L4 nerve root. L5-S1: Disc osteophyte complex, moderate bilateral facet arthropathy, moderate right lateral recessnarrowing moderate left and severe right foraminal narrowing. There is a right extraforaminal disc osteophyte which indents the extraforaminal right L5 nerve root. IMPRESSION IMPRESSION 1. Multilevel degenerative changes as above with moderate to severe canal narrowing at L3-L4 level. 2. Advanced foraminal narrowing at L3-S1 levels as detailed above. Extraforaminal right osteophyte at L4-5 and L5-S1 level may indent the respective extraforaminal right L4 and L5 nerve roots. A CT of lumbar spine may represent a complimentary study for evaluating the foraminal narrowing. 3. Severe disc disease at L3-S1 levels as above. 4. A 5 mm sclerotic lesion in the T12 vertebral body and right iliac wing likely relate to benign bone islands. Sclerotic metastasis cannot be entirely excluded although less likely. These can be evaluated on the CT lumbar spine study without contrast. IMPRESSION / PLAN: Theron was seen today for return neuro. Diagnoses and all orders for this visit: Foot drop, right - DURABLE MEDICAL EQUIPMENT CIDP (chronic inflammatory demyelinating polyneuropathy) (HCC) Weakness of both lower extremities Theron Gao is a 68-year-old male with longstanding axonal sensory motor polyneuropathy presumed daniela a variant of CIDP on monthly IVIG 2 grams/kg divided over 5-days with improvement in both his neuropathy symptoms, gait, as well as weakness/numbness. Previous LP although traumatic showed elevated CSF protein. Previously a EMGs were consistent with a severe neuropathy including absent sensory and motor responses in the lower extremity with active denervation in the distal muscles. Recent repeat EMG confirmed mixed axonal/demyelinating peripheral neuropathy with no significant progression. He is on low-dose steroids and intolerant to higher doses of steroids. I do believe that his severe lumbar disc disease is likely contributing to some of the weakness in his legs predominantly the right ankle dorsiflexion weakness. He has been seen by Orthopedics in the past. He did undergo muscle biopsy in the past which was not suggestive of an inflammatory myopathy. I recommend we continue IVIG for presumed variant of CIDP as he is has not seen any further progression and has had improvement in his gait as well as pain. He is tolerating this medication well. Recommend to continue IVIG 2 g/kgmonthly divided over 4-days. In regards to his right footdrop he would benefit from probably wearing an AFO. I will place an order for an AFO today. Otherwise I will plan to see him back in 1 year sooner if needed. He is scheduled for his next infusion next week. John Dodge DO documented in this encounter Nursing Notes * Monica Benz MED ASSIST - 07/24/2023 1:27 PM EST Chief Complaint Patient presents with Return Neuro documented in this encounter Plan of Treatment Upcoming Encounters Date Type Department Care Team (Late st Contact Info) Description 07/30/2023 11:00 AM EST Hem/Onc Treatment Hematology[address] [address] [place], Chair 7 Hem Onc [address] [place] [address] 07/31/2023 11:00 AM EST Hem/Onc Treatment Hematology/Oncology [address], [address] [address] [place], Chair 5 Hem Onc [address] [place] [address] 08/01/2023 11:30 AM EST Hem/Onc Treatment Hematology/Oncology [address], [address] [address] 08/02/2023 11:00 AM EST Hem/Onc Treatment Hematology/Oncology Treatment, [place] [facility] [address] 08/09/2023 1:00 PM EST Nurse Only Pulmonary Medicine, [facility] [address] [facility] [place] [address] Gw, Nurse Pulmonary [address] [facility] [place] [address] 10/19/2023 11:15 AM EDT Office Visit Otolaryngology [facility] [address] [facility] [place] [address] Martita Gaston MD 132 [facility] [place] [address] 11/14/2023 3:00 PM EDT Office Visit Family Medicine [address] [phone] Ruel Fajardo MD [address] [place] [address] [place] [address] 11/20/2023 1:30 PM EDT Office Visit Allergy/Immunology [facility] 200 [facility] [place] [address] Adriel Montalvo MD 200 [facility] [place] [address] 07/25/2024 1:40 PM EST Office Visit Neurology [facility] 200 [facility] [place] [address] John Dodge DO [address] [place] [address] [place] [address] Scheduled Procedures Name Priority Associated Diagnoses Date/Ti [...] D LEVEL ONCE IN A LIFETIME-USE SMARTSET# [id number] Completed 11/18/2020 Influenza Vaccine (FLU shot) Completed , 05/15/2022, 06/09/2021, Additional history exists GARDASIL-HPV IMMUNIZATION SERIES Aged Out No longer eligible based on patient's age to complete this topic MENINGOCOCCAL (MENACTRA/MENVEO) Aged Out No longer eligible based on patient's age to complete this topic documented as of this encounter Medical Devices Not on filedocumented as of this encounter Visit Diagnoses Diagnosis Foot drop, right- Primary Other acquired deformity of ankle and foot CIDP (chronic inflammatory demyelinating polyneuropathy) (HCC) Chronic inflammatory demyelinating polyneuritis Weakness of both lower extremities documented in this encounter Care Teams Retort Load Expediter Relationship Specialty Start Date End Date Ruel Fajardo MD [address] [place] [address] [place] [phone] PCP - General Family Medicine 10/17/19 documented as of this encounter"
--- OUTSIDE RECORDS SUMMARY | 2023-09-12 10:46 | External Medical Summary | Summary of Care ---
Author Name Unknown Organization [facility] Address [address] [facility] [address] Phone [phone] Care Team Providers Care Hedis Registered Nurse Rn Name Role Phone Ruel Fajardo MD Primary Care Provide r Encounter Details Date Type Department Care Team (Late st Contact Info) Description 07/25/2023 Orders Only PATIENT PORTAL DO NOT DELETE THIS DEPT USED BY [place] [id number] Allergies Active Allergy Reactions Criticality Noted Date Comments Amoxicillin Rash 07/17/2011 documented as of this encounter (statuses as of 07/25/2023) Medications Medication Sig Dispensed Refills Start Date [...] B-2)Indications:CIDP (chronic inflammatory demyelinating polyneuropathy) ([facility]) Take by mouth 4 Tablets [...] s:CIDP (chronic inflammatory demyelinating polyneuropathy) ([facility]) 3 tabs at bedtime 90 [...] Respimat 2.5 MCG/ACT Inhalation Aerosol Solution (Tiotropium [place] Monohydrate)Indicatio ns:Severe persistent asthma without complication Inhale [...] 100 mgIndications:Eosinophi lic asthma 100 mg SC [id number] 05/22/2023 04/22/2024 Active documented as of this encounter (statuses as of 07/25/2023) Active Problems Problem Noted Date Diagnosed Date [...] as of this encounter (statuses as of 07/25/2023) Resolved Problems Problem Noted Date Diagnosed Date Resolved Date Wedge compression fracture o f unspecified lumbar vertebra, initial encounter for closed fracture 09/06/2022 09/06/2022 Compression of lumbar vertebra 11/18/2020 01/20/2021 Asthma, moderate persistent 08/29/2011 10/16/2011 Asthma exacerbation 07/17/2011 05/13/20 12 documented as of this encounter (statuses as of 07/25/2023) Immunizations Name Administration Dates Next Due COVID-19 [...] 11:00 AM EST Hem/Onc Treatment Hematology/Oncology Treatment, [address], [place] [address] [place], Chair 7 Hem Onc [address] [place] [address] 07/31/2023 11:00 AM EST Hem/Onc Treatment Hematology/Oncology [address], [address] [address] [place], Chair 5 Hem Onc [address] [place] [address] 08/01/2023 11:30 AM EST Hem/Onc Treatment Hematology/Oncology Treatment, [address] [address] 08/02/2023 11:00 AM EST Hem/Onc Treatment Hematology/Oncology Treatment, [address], [place] [address] 08/09/2023 1:00 PM EST Nurse Only Pulmonary Medicine, [facility] [address] [place] [address] [place], Nurse Pulmonary [address] [place] [address] 10/19/2023 11:15 AM EDT Office Visit Otolaryngology [facility] 132 [place] [address] Martita Gaston MD 132 [place] [address] 11/14/2023 3:00 PM EDT Office Visit Family [address] [phone] Ruel Fajardo MD [address] [place] [address] [place] [address] 11/20/2023 1:30 PM EDT Office Visit Allergy/Immunology [facility] [address] [place] [address] Adriel Montalvo MD [address] [place] [address] 07/25/2024 1:40 PM EST Office Visit Neurology [facility] [address] [place] [address] John Dodge DO 200 [facility] [place] [address] Scheduled Procedures Name Priority Associated Diagnoses Date/Ti [...] D LEVEL ONCE IN A LIFETIME-USE SMARTSET# [id number] Completed 11/18/2020 Influenza Vaccine (FLU shot) Completed , 05/15/2022, 06/09/2021, Additional history exists GARDASIL-HPV IMMUNIZATION SERIES Aged Out No longer eligible based on patient's age to complete this topic MENINGOCOCCAL (MENACTRA/MENVEO) Aged Out No longer eligible based on patient's age to complete this topic documented as of this encounter Medical Devices Not on filedocumented as of this encounter Care Teams Hedis Registered Nurse Rn Relationship Specialty Start Date End Date Ruel Fajardo MD [address] [place] [address] [place] [id number] PCP - General Family Medicine 10/17/19 documented as of this encounter
--- OUTSIDE RECORDS SUMMARY | 2023-09-12 10:46 | External Medical Summary | Summary of Care ---
Author Name Unknown Organization [facility] Address [address] [facility] [place] [address] Phone [phone] Care Team Providers Care Lead Refiner Name Role Phone Ruel Fajardo MD Primary Care Provide r Reason for Visit * Reason Comments eRx-Medication Refill Encounter Details Date Type Department Care Team (Late st Contact Info) Description 07/23/2023 Refill Family Medicine [address] [phone] Ruel Fajardo MD [address] [place] [address] [place] [phone] Encounter for long-term (current) use of medications*; HTN, goal below 140/90 Allergies Active Allergy [...] the skin every 4 weeks. 1 Each 1 Active Zoster Vac Recomb Adjuvanted 50 [...] P (chronic inflammatory demyelinating polyneuropathy) ([facility]) [...] ons:CIDP (chronic inflammatory demyelinating polyneuropathy) ([facility]) [...] IVIG treatment days. 150 Tablet 1 3 Active Mometasone Furoate 50 MCG/ACT Nasal Suspension inhale 2 SPRAYS INTO EACH NOSTRIL DAILY. 17 g 11 3 Active Spiriva Respimat 2.5 MCG/ACT Inhalation Aerosol Solution (Tiotropium [place] Monohydrate)Indicat ions:Severe persistent asthma without complication Inhale [...] FOR WHEEZING 18 g 5 3 Active hydrALAZINE HCl 25 MG Oral Tablet (Apresoline)Indicat ions:HTN, goal below 140/90 Take 1 Tablet by mouth every 4 hours as needed for Hypertension. If Blood pressure above 160/100 60 Tablet 0 4 Active Cyclobenzaprine HCl 5 MG Oral Tablet (Flexeril)Indicatio ns:Weakness of both legs,Numbness and tingling of foot,Lumbar compression fracture (HCC) TAKE ONE TABLET BY MOUTH TWICE DAILY NEEDED FOR MUSCLE SPASM 30 Tablet 1 4 Active predniSONE 10 MG Oral Tablet (Deltasone) 1-3 tabs daily as directed 90 Tablet 0 4 Active Azelastine HCl 137 MCG/SPRAY Nasal Solution Administer 2 Sprays into nostril in the morning and 2 Sprays before bedtime. 30 mL 11 4 Active hydroCHLOROthiazide 25 MG Oral Tablet (Hydrodiuril)Indica tions:HTN, goal below 140/90 Take 1 Tablet by mouth in the morning. 90 Tablet 1 4 Active hydroCHLOROthiazide 25 MG Oral Tablet (Hydrodiuril)Indica tions:HTN, goal below 140/90 Take 1 Tablet by mouth in the morning. 90 Tablet 1 3 07/24/19 24 Discontinued Hospital, Clinic, or Other Facility [...] 100 mgIndications:Eosinophi lic asthma 100 mg SC [id number] 05/22/2023 04/22/2024 Active documented as of this [...] encounter Miscellaneous Notes * Telephone Encounter - Diana Zhang RPh - 07/24/2023 10:54 AM EST Signed Prescriptions: Disp Refills hydroCHLOROthiazide 25 MG Oral Tablet (Hyd*90 Tab*1 Sig: Take 1 Tablet by mouth in the morning.Authorizing Provider: Yana FAJARDO User: DIANA ZHANG * Telephone Encounter - Diana Zhang RPh - 07/24/2023 10:52 AM EST Protocol passed, but pt is due for CMP soon. Appropriate labs ordered. Patient may obtain these labs with next routine blood work. Thank you, Diana Zhang, PharmD Clinical Pharmacist [facility] Services (formally Telepharmacy) [phone] 07/24/2023 10:52 AM documented in this encounter Plan of Treatment Upcoming Encounters Date Type Department Care Team (Late st Contact Info) Description 07/24/2023 1:40 PM EST Office Visit Neurology [facility] [address] [facility] [place] [address] John Dodge, DO [address] [facility] [place] [address] 07/30/2023 11:00 AM EST Hem/Onc Treatment Hematology/Oncology Treatment, [place] 200 [facility], [place] [address] Eden, Chair 7 Hem Onc [facility] [address] [facility] [place] [address] 07/31/2023 11:00 AM EST Hem/Onc Treatment Hematology/Oncology Treatment, [place] 200 [facility], [place] [address] Eden, Chair 5 Hem Onc [facility] [address] [facility] [place] [address] 08/01/2023 11:30 AM EST Hem/Onc Treatment Hematology/Oncology Treatment, [address], [place] [address] 08/02/2023 11:00 AM EST Hem/Onc Treatment Hematology/Oncology Treatment, [address], [place] [address] 08/09/2023 1:00 PM EST Nurse Only Pulmonary Medicine, [facility] [address] [facility] [place] [address] Gw, Nurse Pulmonary [address] [facility] [place] [address] 10/19/2023 11:15 AM EDT Office Visit Otolaryngology [facility] [address] [place] [address] Martita Gaston MD [address] [place] [address] 11/14/2023 3:00 PM EDT Office Visit Family Medicine [address] [place] [phone] Ruel Fajardo MD [address] [place] [address] [place] [address] 11/20/2023 1:30 PM EDT Office Visit Allergy/Immunology [employer] [address] [facility] [place] [address] Adriel Montalvo MD 200 [facility] [place] [address] Scheduled Orders Name Type Priority Associated Diagnoses Orde r Schedule COMPREHENSIVE METABOLIC PANEL Lab Routine Encounter for long-term (current) use of medications Expected: 07/31/2023 (Approximate), Expires: 07/24/2024 Scheduled Procedures Name Priority Associated Diagnoses Date/Ti [...] D LEVEL ONCE IN A LIFETIME-USE SMARTSET# 25569 Completed 11/18/2020 Influenza Vaccine (FLU shot) Completed , 05/15/2022, 06/09/2021, Additional history exists GARDASIL-HPV IMMUNIZATION SERIES Aged Out No longer eligible based on patient's age to complete this topic MENINGOCOCCAL (MENACTRA/MENVEO) Aged Out No longer eligible based on patient's age to complete this topic documented as of this encounter Medical Devices Not on filedocumented as of this encounter Visit Diagnoses Diagnosis Encounter for long-term (current) use of medications- Primary Encounter for long-term (current) use of other medications HTN, goal below 140/90 Unspecified essential hypertension documented in this encounter Care Teams Lead Refiner Relationship Specialty Start Date End Date Ruel Fajardo MD [address] [place] [address] [place] [address] PCP - General Family Medicine 10/17/19 documented as of this encounter
--- OUTSIDE RECORDS SUMMARY | 2023-09-12 10:46 | External Medical Summary | Summary of Care ---
Author Name Unknown Organization [facility] Address [address] [facility] [place] [address] Phone [phone] Care Team Providers Care Construction Rigger Name Role Phone Ruel Fajardo MD Primary Care Provide r Reason for Visit * Reason Comments IV Therapy Privigen 06/28 * Episode Based Medications (Routine) - Authorized Specialty Diagnoses / Procedures Referred By Contac t Referred To Contact Diagnoses CIDP (chronic inflammatory demyelinating polyneuropathy) ([facility]) Procedures PA INJ IVIG PRIVIGEN 500 MG John Dodge, DO [address] [place] [address] Anc Hem/Onc [facility] DEPT CLOSED - 05/08/[address] [place] [phone] Referral ID Status Reason Start Date Expiration Date V isits Requested Visits Authorized [id number] Authorized 03/16/2023 03/16/2024 [id number] Encounter Details Date Type Department Care Team (Latest Contact Info) Description 07/30/2023 11:00 AM EST Hem/Onc Treatment Hematology/Oncolog y Treatment, [facility] [address] [place] [address] Eden, Chair 7 Hem Onc [address] [place] [address] CIDP (chronic inflammatory demyelinating polyneuropathy) ([facility])* Allergies Active Allergy Reactions Criticality Noted Date Comments Amoxicillin Rash 07/17/2011 documented as of this encounter (statuses as of 07/30/2023) Medications Medication Sig Dispensed Refills Start Date [...] Tablet (vitamin B-2)Indications:CIDP (chronic inflammatory demyelinating polyneuropathy) (HCC) Take by [...] Capsule (Neurontin)Indication s:CIDP (chronic inflammatory demyelinating polyneuropathy) ([facility]) 3 tabs at bedtime 90 Capsule [...] Respimat 2.5 MCG/ACT Inhalation Aerosol Solution (Tiotropium [place] Monohydrate)Indicatio ns:Severe persistent asthma without complication Inhale [...] 100 mgIndications:Eosinophi lic asthma 100 mg SC [id number] 05/22/2023 04/22/2024 Active documented as of this encounter (statuses as of 07/30/2023) Active Problems Problem Noted Date Diagnosed Date [...] as of this encounter (statuses as of 07/30/2023) Resolved Problems Problem Noted Date Diagnosed Date Resolved Date Wedge compression fracture o f unspecified lumbar vertebra, initial encounter for closed fracture 09/06/2022 09/06/2022 Compression of lumbar vertebra 11/18/2020 01/20/2021 Asthma, moderate persistent 08/29/2011 10/16/2011 Asthma exacerbation 07/17/2011 05/13/20 12 documented as of this encounter (statuses as of 07/30/2023) Immunizations Name Administration Dates Next Due COVID-19 [...] Sign Reading Time Taken Comments Blood Pressure 132/89 07/30/2023 11:00 AM EST Pulse 78 07/30/2023 11:00 AM EST Temperature 36.4 C (97.6 F) 07/30/2023 11:[address] Respiratory Rate 16 07/30/2023 11:00 AM EST Oxygen Saturation 95% 07/30/2023 11:00 AM EST Inhaled Oxygen Concentration - - Weight - - Height - - Body Mass Index - - documented in this encounter Nursing Notes * Dorota Ardon RN - 07/30/2023 1:55 PM EST Goals: Patient will remain free [...] further needs. * Dorota Ardon RN - 07/30/2023 12:12 PM EST Chair 8. IV inserted. Patient here for Privigen 06/28, feeling well today, no acute issues or complaints. Safety and Risk for Injury Patient will remain free from injury. Ensure appropriate safety devices are available. Provide and maintain safe environment. documented in this encounter Plan of Treatment Upcoming Encounters Date Type Department Care Team (Late st Contact Info) Description 07/31/2023 11:00 AM EST Hem/Onc Treatment [facility]ematology[facility] [address] [place], Chair 5 Hem On[address] [place] [address] 08/01/2023 11:30 AM EST Hem/Onc Treatment Hematology/Oncology [address], [address] [address] 08/02/2023 11:00 AM EST Hem/Onc Treatment Hematology/Oncology Treatment, [address], [place] [address] 08/09/2023 1:00 PM EST Nurse Only Pulmonary Medicine, [facility] [address] Gw, Nurse Pulmonary [facility] [address] 08/27/2023 11:00 AM EST Hem/Onc Treatment Hematology/Oncology [address], [address] [address] [place], Chair 3 Hem Onc [address] [place] [address] 08/28/2023 11:30 AM EST Hem/Onc Treatment Hematology/Oncology [address], [address] [address] [place], Chair 4 Hem Onc [address] [place] [address] 08/29/2023 11:00 AM EST Hem/Onc Treatment Hematology/Oncology Treatment, [place] 200 [place] [address] [place], Chair 9 Hem Onc [address] [place] [address] 08/30/2023 11:45 AM EST Hem/Onc Treatment Hematology/Oncology Treatment, [place] [address] [place] [address] [place], Chair 2 Hem Onc [address] [place] [address] 10/19/2023 11:15 AM EDT Office Visit [facility] [place] [address] Martita Gaston MD [address] [facility] [place] [address] 11/14/2023 3:00 PM EDT Office Visit Family Medicine [address] [phone] Ruel Fajardo MD [address] [place] [address] [place] [address] 11/20/2023 1:30 PM EDT Office Visit Allergy/Immunology [facility] [place] [address] [place] [address] Adriel Montalvo MD [address] [place] [address] 07/25/2024 1:40 PM EST Office Visit Neurology [facility] [place] [address] [place] [address] John Dodge, [address] [place] [address] Scheduled Procedures Name Priority Associated Diagnoses Date/Ti [...] D LEVEL ONCE IN A LIFETIME-USE SMARTSET# 21333 Completed 11/18/2020 Influenza Vaccine (FLU shot) Completed [...] ONCE PRN Other, Hypersensitivity Reaction, Starting on Sun07/30/23 at 1118, Until Sun07/31/23 at 1117, For 24 hours EPINEPHrine 1 MG/ML inj 0.3 mg 0.3 mg, Intramuscular, ONCE PRN Other, Hypersensitivity Reaction or Anaphylaxis, Starting on Sun07/30/23 at 1118, Until Sun07/31/23 at 1117, For 24 hours hEParin 100 UNIT/ML Lock Flush inj 500 Units 500 Units (5 mL), IV Lock, PRN Other, IV Flush, Starting on Sun07/30/23 at 1118, Until Sun07/31/23 at 1117, For 24 hours, Do not flush if lock, PICC, or central line not in place; IV infusing or unable to flush. Given 07/30/2023 1:29 PM EST 500 Units Hydrocortisone Sod Suc (PF) (Solu-Cortef) inj 100 mg 100 mg, IV Push, ONCE PRN Other, Hypersensitivity Reaction, Starting on Sun07/30/23 at 1118, Until Sun07/31/23 at 1117, For 24 hours NSS infusion 500 mL, Intravenous, at 50 mL/hr, CONTINUOUS, Starting on Sun07/30/23 at 1230, Until Sun07/30/23 at 2229 Start Infusion 07/30/2023 11:21 AM EST 500 mL 50 mL/hr sodium chloride 0.9 % flush central line 10 mL 10 mL, IV Push, PRN Other, IV Flush, Starting on Sun07/30/23 at 1118, Until Sun07/31/23 at 1117, For 24 hours, Do not flush if lock, PICC, or central line not in place; IV infusing or unable to flush. Given 07/30/2023 1:29 PM EST 10 mL Inactive Administered Medications - up to 3 most recent administrations Medication Order MAR Action Action Date Dose Rate Site Acetaminophen (Tylenol) tab 650 mg 650 mg, Oral, ONCE, On Sun07/30/23 at 1230, For 1 dose, Maximum of 4 grams (4000 mg) per day. Given 07/30/2023 11:20 AM EST 650 mg diphenhydrAMINE (Benadryl) cap 25 mg 25 mg, Oral, ONCE, On Sun07/30/23 at 1230, For 1 dose Given 07/30/2023 11:20 AM EST 25 mg Immune Globulin Human-IVIG 10% (Privigen) IV 40 g 40 g, IV Piggyback, ONCE, 1 dose, On Sun07/30/23 at 1300, Total dose = 45 gm [...] Infusion duration = 1.8 hours Rate Change 07/30/2023 12:30 PM EST 423 mL/hr Rate Change 07/30/2023 12:15 PM EST 212 mL/hr Start Infusion 07/30/2023 12:05 PM EST 40 g 106 mL/h r Immune Globulin Human-IVIG 10% (Privigen) IV 5 g 5 g, IV Piggyback, ONCE, 1 dose, On Sun07/30/23 at 1230, Total dose = 45 gm [...] Infusion duration = 1.8 hours Rate Change 07/30/2023 12:00 PM EST 106 mL/hr Rate Change 07/30/2023 11:45 AM EST 53 mL/hr Start Infusion 07/30/2023 11:30 AM EST 5 g 26 mL/hr documented in this encounter Care Teams Construction Rigger Relationship Specialty Start Date End Date Ruel Fajardo MD [address] [place] [address] [place] [address] PCP - General Family Medicine 10/17/19 documented as of this encounter
--- OUTSIDE RECORDS SUMMARY | 2023-09-12 10:46 | External Medical Summary | Summary of Care ---
Author Name Unknown Organization [facility] Address [address] [facility] [place] [address] Phone [phone] Care Team Providers Care Director Inpatient Headache Program Name Role Phone Ruel Fajardo MD Primary Care Provide r Encounter Details Date Type Department Care Team (Late st Contact Info) Description 07/25/2023 Orders Only Neurology [facility] [address] [place] [address] John Dodge, DO [address] [place] [address] Allergies Active Allergy Reactions Criticality Noted Date [...] (vitamin B-2)Indications:CIDP (chronic inflammatory demyelinating polyneuropathy) ([facility]) Take by mouth 4 Tablets in the [...] (Neurontin)Indication s:CIDP (chronic inflammatory demyelinating polyneuropathy) ([facility]) 3 tabs at bedtime 90 Capsule 5 [...] Respimat 2.5 MCG/ACT Inhalation Aerosol Solution (Tiotropium [place] Monohydrate)Indicatio ns:Severe persistent asthma without complication Inhale [...] 100 mgIndications:Eosinophi lic asthma 100 mg SC [id number] 05/22/2023 04/22/2024 Active documented as of this [...] 11:00 AM EST Hem/Onc Treatment Hematology/Oncology Treatment, [address], [place] [address] [place], Chair 7 Hem Onc [address] [place], [place] [address] 07/31/2023 11:00 AM EST Hem/Onc Treatment Hematology/Oncology Treatment, [place] 200 [facility], [place] [address] [place], Chair 5 Hem Onc [address] [place] [address] 08/01/2023 11:30 AM EST Hem/Onc Treatment Hematology/Oncology Treatment, [address], [place] [address] 08/02/2023 11:00 AM EST Hem/Onc Treatment Hematology/Oncology Treatment, [address], [place] [address] 08/09/2023 1:00 PM EST Nurse Only Pulmonary Medicine, [facility] [address] [facility] [place] [address] Gw, Nurse Pulmonary [address] [facility] [place] [address] 10/19/2023 11:15 AM EDT Office Visit Otolaryngology [facility] [address] [place] [address] Martita Gaston MD [address] [place] [address] 11/14/2023 3:00 PM EDT Office Visit Family Medicine [address] [place] [phone] Ruel Fajardo MD [address] [place] [address] [place] [address] 11/20/2023 1:30 PM EDT Office Visit Allergy/Immunology [facility] [address] [place] [address] Adriel Montalvo MD [address] [place] [address] 07/25/2024 1:40 PM EST Office Visit Neurology [facility] [address] [place] [address] John Dodge DO 200 [facility] [place] [address] Scheduled Procedures Name Priority Associated Diagnoses Date/Ti [...] D LEVEL ONCE IN A LIFETIME-USE SMARTSET# 35425 Completed 11/18/2020 Influenza Vaccine (FLU shot) Completed , 05/15/2022, 06/09/2021, Additional history exists GARDASIL-HPV IMMUNIZATION SERIES Aged Out No longer eligible based on patient's age to complete this topic MENINGOCOCCAL (MENACTRA/MENVEO) Aged Out No longer eligible based on patient's age to complete this topic documented as of this encounter Medical Devices Not on filedocumented as of this encounter Care Teams Director Inpatient Headache Program Relationship Specialty Start Date End Date Ruel Fajardo MD [address] [place] [address] [place] [phone] PCP - General Family Medicine 10/17/19 documented as of this encounter
--- OUTSIDE RECORDS SUMMARY | 2023-09-12 10:47 | External Medical Summary | Summary of Care ---
Author Name Unknown Organization [facility] Address [address] [facility] [place] [address] Phone [phone] Care Team Providers Care Receiving And Processing Supervisor Name Role Phone Ruel Fajardo MD Primary Care Provide r Reason for Visit * Reason Comments IV Therapy IVIG * Episode Based Medications (Routine) - Authorized Specialty Diagnoses / Procedures Referred By Contac t Referred To Contact Diagnoses CIDP (chronic inflammatory demyelinating polyneuropathy) ([facility]) Procedures OK INJ IVIG PRIVIGEN 500 MG John Dodge, DO [address] [place] [address] Anc Hem/Onc Joesph Harmon DEPT CLOSED - 05/08/[address] [id number] Referral ID Status Reason Start Date Expiration Date V isits Requested Visits Authorized [id number] Authorized 03/16/2023 03/16/2024 [id number] Encounter Details Date Type Department Care Team (Latest Contact Info) Description 07/03/2023 1:15 PM EST Hem/Onc Treatment Hematology/Oncolog y Treatment, [place] [address] [place] [address] [place], Chair 9 Hem Onc [facility] [address] [place] [id number] CIDP (chronic inflammatory demyelinating polyneuropathy) ([facility])* Allergies Active Allergy Reactions Criticality Noted Date Comments Amoxicillin Rash 07/17/2011 documented as of this encounter (statuses as of 07/03/2023) Medications Medication Sig Dispensed Refills Start Date [...] Tablet (vitamin B-2)Indications:CIDP (chronic inflammatory demyelinating polyneuropathy) ([facility]) Take by mouth 4 Tablets [...] the morning. 30 Tablet 2 02/23/2022 Active Azelastine HCl 137 MCG/SPRAY Nasal Solution Administer into nostril 2 Sprays in the morning AND 2 Sprays before bedtime. 30 mL 11 04/25/2022 Active Gabapentin 100 MG Oral Capsule (Neurontin)Indication s:CIDP (chronic inflammatory demyelinating polyneuropathy) ([facility]) 3 tabs at bedtime 90 [...] by mouth in the morning. 0 Active hydroCHLOROthiazide 25 MG Oral Tablet (Hydrodiuril)Indicati ons:HTN, goal below 140/90 Take 1 Tablet by mouth in the morning. 90 Tablet 1 01/24/2023 Active Metoprolol Succinate ER 25 MG Oral [...] Respimat 2.5 MCG/ACT Inhalation Aerosol Solution (Tiotropium [place] Monohydrate)Indicatio ns:Severe persistent asthma without complication Inhale [...] IVIG infusion. 60 Capsule 1 05/08/2023 Active Cyclobenzaprine HCl 5 MG Oral Tablet (Flexeril)Indications :Weakness of both legs,Numbness and tingling of foot,Lumbar compression fracture (HCC) TAKE ONE TABLET BY MOUTH TWICE DAILY NEEDED FOR MUSCLE SPASM 30 Tablet 1 05/24/2023 Active predniSONE 10 MG Oral Tablet (Deltasone) 1-3 tabs daily as directed 90 Tablet 0 05/24/2023 Active Albuterol Sulfate HFA 108 (90 Base) [...] above 160/100 60 Tablet 0 07/02/2023 Active Hospital, Clinic, or Other Facility Administered [...] 100 mgIndications:Eosinophi lic asthma 100 mg SC [id number] 05/22/2023 04/22/2024 Active documented as of this encounter (statuses as of 07/03/2023) Active Problems Problem Noted Date Diagnosed Date [...] as of this encounter (statuses as of 07/03/2023) Resolved Problems Problem Noted Date Diagnosed Date Resolved Date Wedge compression fracture o f unspecified lumbar vertebra, initial encounter for closed fracture 09/06/2022 09/06/2022 Compression of lumbar vertebra 11/18/2020 01/20/2021 Asthma, moderate persistent 08/29/2011 10/16/2011 Asthma exacerbation 07/17/2011 05/13/20 12 documented as of this encounter (statuses as of 07/03/2023) Immunizations Name Administration Dates Next Due COVID-19 [...] Nursing Notes * Kayla Ty, H[place]IL[place] - 07/03/2023 4:24 PM EST Pt completed [...] Care Team (Late st Contact Info) Description 07/04/2023 11:00 AM EST Hem/Onc Treatment Hematology/[facility]cology Treatment, [place] [facility] [address] [place], Chair 3 Hem Onc [facility] [address] [facility] [place] [address] 07/04/2023 2:30 PM EST Nurse Only Pulmonary Medicine, [facility] 132 [place] [address] Gw, Nurse Pulmonary 132 [place] [address] 07/05/2023 11:00 AM EST Hem/Onc Treatment Hematology/Oncology Treatment, [place] [facility] [address] [place], Chair [address] [facility] 200 [place] [address] 07/24/2023 1:40 PM EST Office Visit Neurology [facility] [place] 200 [place] [address] John Dodge, DO [address] [place] [address] [place] [address] 07/30/2023 11:00 AM EST Hem/Onc Treatment Hematology/Oncology Treatment, [place] [facility] [address] [place], Chair [address] [place], [place] [address] 07/31/2023 11:00 AM EST Hem/Onc Treatment Hematology/Oncology Treatment, [place] 200 [facility], [place] [address] [place], Chair 5 Hem Onc [address] [place], [place] [address] 08/01/2023 11:30 AM EST Hem/Onc Treatment Hematology/Oncology Treatment, [address], [place] [address] 08/02/2023 11:00 AM EST Hem/Onc Treatment Hematology/Oncology Treatment, [address], [place] [address] 10/19/2023 11:15 AM EDT Office Visit Otol[facility]ology [facility] [place] [address] Martita Gaston MD [address] [place] [address] 11/14/2023 3:00 PM EDT Office Visit Family Medicine [address] [phone] Ruel Fajardo MD [address] [place], [place] [address] [address] 11/20/2023 1:30 PM EDT Office Visit Allergy/Immunology [facility] [place] [address] [facility] [address] [place], [place] [address] Adriel Montalvo MD [address] [place] [address] [place], [place] [address] Scheduled Procedures Name Priority Associated Diagnoses Date/Ti [...] D LEVEL ONCE IN A LIFETIME-USE SMARTSET# 48622 Completed 11/18/2020 Influenza Vaccine (FLU shot) Completed [...] Diagnoses Diagnosis CIDP (chronic inflammatory demyelinating polyneuropathy) ([facility])- Primary Chronic inflammatory demyelinating polyneuritis documented in this encounter Administered Medications Active Administered Medications - up to 3 most recent administrations Medication Order MAR Action Action Date Dose Rate Site diphenhydrAMINE (Benadryl) inj 50 mg 50 mg, IV Push, ONCE PRN Other, Hypersensitivity Reaction, Starting on Sun07/03/23 at 1340, Until Sun07/04/23 at 1339, For 24 hours EPINEPHrine 1 MG/ML inj 0.3 mg 0.3 mg, Intramuscular, ONCE PRN Other, Hypersensitivity Reaction or Anaphylaxis, Starting on Sun07/03/23 at 1340, Until Sun07/04/23 at 1339, For 24 hours hEParin 100 UNIT/ML Lock Flush inj 500 Units 500 Units (5 mL), IV Lock, PRN Other, IV Flush, Starting on Sun07/03/23 at 1340, Until Sun07/04/23 at 1339, For 24 hours, Do not flush if lock, PICC, or central line not in place; IV infusing or unable to flush. Given 07/03/2023 3:57 PM EST 500 Units Hydrocortisone Sod Suc (PF) (Solu-Cortef) inj 100 mg 100 mg, IV Push, ONCE PRN Other, Hypersensitivity Reaction, Starting on Sun07/03/23 at 1340, Until Sun07/04/23 at 1339, For 24 hours NSS infusion 500 mL, Intravenous, at 50 mL/hr, CONTINUOUS, Starting on Sun07/03/23 at 1445, Until Sun07/04/23 at 0044 Start Infusion 07/03/2023 1:40 PM EST 500 mL 50 mL/hr sodium chloride 0.9 % flush central line 10 mL 10 mL, IV Push, PRN Other, IV Flush, Starting on Sun07/03/23 at 1340, Until Sun07/04/23 at 1339, For 24 hours, Do not flush if lock, PICC, or central line not in place; IV infusing or unable to flush. Given 07/03/2023 3:57 PM EST 10 mL Inactive Administered Medications [...] Given 07/03/2023 1:47 PM EST 25 mg Immune Globulin Human-IVIG [...] Change 07/03/2023 2:15 PM EST 53 mL/hr documented in this encounter Care Teams Receiving And Processing Supervisor Relationship Specialty Start Date End Date Ruel Fajardo MD [address] [place] [address] [place] [phone] PCP - General Family Medicine 10/17/19 documented as of this encounter
--- OUTSIDE RECORDS SUMMARY | 2023-09-12 10:47 | External Medical Summary | Summary of Care ---
Author Name Unknown Organization [facility] Address [address] [facility] [place] [address] Phone [phone] Care Team Providers Care Manager Of Program Name Role Phone Ruel Fajardo MD Primary Care Provide r Reason for Visit * Reason Comments eRx-Medication Refill Encounter Details Date Type Department Care Team (Late st Contact Info) Description 07/12/2023 Refill Family Medicine [address] [phone] Ruel Fajardo MD [address] [place] [address] [place] [address] Weakness of both legs; Numbness and tingling of foot; Lumbar compression fracture (HCC) Allergies Active Allergy Reactions Criticality Noted Date Comments Amoxicillin Rash 07/17/2011 documented as of this encounter (statuses as of 07/12/2023) Medications Medication Sig Dispensed Refills Start Date [...] B-2)Indications:CIDP (chronic inflammatory demyelinating polyneuropathy) ([facility]) Take by mouth 4 Tablets [...] Capsule (Neurontin)Indication s:CIDP (chronic inflammatory demyelinating polyneuropathy) ([facility] [...] Respimat 2.5 MCG/ACT Inhalation Aerosol Solution (Tiotropium [place] Monohydrate)Indicatio ns:Severe persistent asthma without complication Inhale [...] 100 mgIndications:Eosinophi lic asthma 100 mg SC [id number] 05/22/2023 04/22/2024 Active documented as of this encounter (statuses as of 07/12/2023) Active Problems Problem Noted Date Diagnosed Date [...] as of this encounter (statuses as of 07/12/2023) Resolved Problems Problem Noted Date Diagnosed Date Resolved Date Wedge compression fracture o f unspecified lumbar vertebra, initial encounter for closed fracture 09/06/2022 09/06/2022 Compression of lumbar vertebra 11/18/2020 01/20/2021 Asthma, moderate persistent 08/29/2011 10/16/2011 Asthma exacerbation 07/17/2011 05/13/20 12 documented as of this encounter (statuses as of 07/12/2023) Immunizations Name Administration Dates Next Due COVID-19 [...] encounter Miscellaneous Notes * Telephone Encounter - Yohana Khoury - 07/12/2023 4:39 PM ESTRefused Prescriptions: Disp Refills Cyclobenzaprine HCl 5 MG Oral Tablet (Flex*30 Tab*1 Sig: TAKE ONE TABLET BY MOUTH TWICE DAILY NEEDED FOR MUSCLE SPASMRefused By: Mecca KHOURY for Refusal: Duplicate Request documented in this encounter Plan of Treatment Upcoming Encounters Date Type Department Care Team (Late st Contact Info) Description 07/24/2023 1:40 PM EST Office Visit Neurology [place] [address] [place] [address] John Dodge, DO [address] [place] [address] 07/30/2023 11:00 AM EST Hem/Onc Treatment Hematology/Oncology Treatment, [address] [place] [phone] [place], Chair 7 Hem Onc [place] [address] [place] [address] 07/31/2023 11:00 AM EST Hem/Onc Treatment Hematology/Oncology Treatment, [place] 200 [facility] [place] [phone] [place], Chair 5 Hem Onc [address] [place] [address] 08/01/2023 11:30 AM EST Hem/Onc Treatment Hematology/Oncology Treatment, [address] [address] 08/02/2023 11:00 AM EST Hem/Onc Treatment Hematology/Oncology Treatment, [address] [address] 08/09/2023 1:00 PM EST Nurse Only Pulmonary Medicine, [facility] [address] Gw, Nurse Pulmonary 132 [facility] [place] [address] 10/19/2023 11:15 AM EDT Office Visit Otolaryngology [facility] 132 [facility] [place] [address] Martita Gaston MD 132 [facility] [place] [address] 11/14/2023 3:00 PM EDT Office Visit Family Medicine [address] [phone] Ruel Fajardo MD [address] [place], [place] [address] [address] 11/20/2023 1:30 PM EDT Office Visit Allergy/Immunology [address] [place] [address] Adriel Montalvo MD [address] [place] [address] [place] [address] Scheduled Procedures Name Priority Associated Diagnoses Date/Ti [...] D LEVEL ONCE IN A LIFETIME-USE SMARTSET# [id number] Completed 11/18/2020 Influenza Vaccine (FLU shot) Completed , 05/15/2022, 06/09/2021, Additional history exists GARDASIL-HPV IMMUNIZATION SERIES Aged Out No longer eligible based on patient's age to complete this topic MENINGOCOCCAL (MENACTRA/MENVEO) Aged Out No longer eligible based on patient's age to complete this topic documented as of this encounter Medical Devices Not on filedocumented as of this encounter Visit Diagnoses Diagnosis Weakness of both legs Other musculoskeletal symptoms referable to limbs Numbness and tingling of foot Disturbance of skin sensation Lumbar compression fracture (HCC) Closed fracture of lumbar vertebra without mention of spinal cord injury documented in this encounter Care Teams Manager Of Program Relationship Specialty Start Date End Date Ruel Fajardo MD [address] [place] [address] [place] [phone] PCP - General Family Medicine 10/17/19 documented as of this encounter
--- OUTSIDE RECORDS SUMMARY | 2023-09-12 10:47 | External Medical Summary | Summary of Care ---
Author Name Unknown Organization [facility] Address [address] [facility] [place] [address] Phone [phone] Care Team Providers Care Booth Usher Name Role Phone Ruel Fajardo MD Primary Care Provide r Reason for Visit * Reason Onset Date Comments Medication Refill 07/11/2023 Encounter Details Date Type Department Care Team (Late st Contact Info) Description 07/11/2023 Refill Family Medicine [address] [phone] Ruel Fajardo MD [address] [place] [address] [place] [address] Weakness of both legs; Numbness and tingling of foot; Lumbar compression fracture (HCC) Allergies Active Allergy Reactions Criticality Noted Date Comments Amoxicillin Rash 07/17/2011 documented as of this encounter (statuses as of 07/13/2023) Medications Medication Sig Dispensed Refills Start Date [...] (vitamin B-2)Indications:CONSUELO P (chronic inflammatory demyelinating polyneuropathy) ([facility]) [...] 04/25/2022 Active Gabapentin 100 MG Oral Capsule (Neurontin)Indicati ons:CIDP (chronic inflammatory demyelinating polyneuropathy) ([facility]) [...] 0 Active hydroCHLOROthiazide 25 MG Oral Tablet (Hydrodiuril)Indica [...] Respimat 2.5 MCG/ACT Inhalation Aerosol Solution (Tiotropium [place] Monohydrate)Indicat ions:Severe persistent asthma without complication Inhale [...] IVIG infusion. 60 Capsule 1 05/08/2023 Active predniSONE 10 MG Oral Tablet (Deltasone) [...] MUSCLE SPASM 30 Tablet 1 07/13/2023 Active Cyclobenzaprine HCl 5 MG Oral Tablet (Flexeril)Indicatio ns:Weakness of both legs,Numbness and tingling of foot,Lumbar compression fracture (HCC) TAKE ONE TABLET BY MOUTH TWICE DAILY NEEDED FOR MUSCLE SPASM 30 Tablet 1 05/24/2023 Discontinue d(Refill) Hospital, Clinic, or Other Facility [...] 100 mgIndications:Eosinophi lic asthma 100 mg SC [id number] 05/22/2023 04/22/2024 Active documented as of this encounter (statuses as of 07/13/2023) Active Problems Problem Noted Date Diagnosed Date [...] as of this encounter (statuses as of 07/13/2023) Resolved Problems Problem Noted Date Diagnosed Date Resolved Date Wedge compression fracture o f unspecified lumbar vertebra, initial encounter for closed fracture 09/06/2022 09/06/2022 Compression of lumbar vertebra 11/18/2020 01/20/2021 Asthma, moderate persistent 08/29/2011 10/16/2011 Asthma exacerbation 07/17/2011 05/13/20 12 documented as of this encounter (statuses as of 07/13/2023) Immunizations Name Administration Dates Next Due COVID-19 [...] Telephone Encounter - Ruel Fajardo MD - 07/13/2023 8:47 AM EST Signed Prescriptions: Disp Refills Cyclobenzaprine HCl 5 MG Oral Tablet (Flex*30 Tab*1 Sig: TAKE ONE TABLET BY MOUTH TWICE DAILY NEEDED FOR MUSCLE SPASM Authorizing Provider: RUEL FAJARDO * Telephone Encounter - Loraine Andre, [facility] - 07/13/2023 7:59 AM ESTPending Prescriptions: Disp Refills Cyclobenzaprine HCl 5 MG Oral Tablet (Flex*30 Tab*1 Sig: TAKE ONE TABLET BY MOUTH TWICE DAILY NEEDED FOR MUSCLE SPASM * Telephone Encounter - Loraine Andre RPh - 07/13/2023 7:59 AM EST Did you pend patient's preferred pharmacy and medication before forwarding?yes Pharmacy: [address] [place] Pending Prescriptions: Disp Refills Cyclobenzaprine HCl 5 MG Oral Tablet (Fle*30 Tab*1 Sig: TAKE ONE TABLET BY MOUTH TWICE DAILY NEEDED FOR MUSCLE SPASM Last Visit: 05/11/2023 (in office), 04/28/2021 (telemedicine) Next Visit: 11/14/2023 If no future appointments scheduled, and last appointment is greater than a year ago, please schedule patient for a follow-up appointment Last date the medication was ordered: 05/24/23 Is this request for a controlled substance?No Urine Drug Screen:No results found. However, due to the size of the patient record, not all encounters were searched. Please check Results Review for a complete set of results. Patient Phone Numbers Labs: Lab Results Component Value Date/Time CREAT 1.0 09/06/2022 03:40 PM CREAT 1.0 05/12/2020 02:25 PM POTASSIUM 4.5 09/06/2022 03:40 PM POTASSIUM 4.1 05/12/2020 02:25 PM TSH 1.52 07/01/2020 02:49 PM LDLCALC 156 (H) 09/06/2022 03:40 PM LDLCALC 158 (H) 08/07/2019 02:56 PM LDLDIRECT NOT APPLICABLE 08/07/2019 02:56 PM ALT 30 09/06/2022 03:40 PM ALT 43 10/17/2019 12:47 PM HGBA1C 4.9 02/20/2022 12:35 PM documented in this encounter Plan of Treatment Upcoming Encounters Date Type Department Care Team (Late st Contact Info) Description 07/24/2023 1:40 PM EST Office Visit Neurology [facility] 200 [facility] [place], [place] [address] John Dodge, DO 200 [facility] [place], [place] [address] 07/30/2023 11:00 AM EST Hem/Onc Treatment Hematology/Oncology Treatment, [place] 200 [facility], [place] [address] [place], Chair 7 Hem [facility]c [facility] 200 [facility] [place], [place] [address] 07/31/2023 11:00 AM EST Hem/Onc Treatment Hematology/Oncology Treatment, [place] 200 [facility], [place] [address] dEen, Chair 5 Hem Onc [facility] 200 [facility] [place], [place] [address] 08/01/2023 11:30 AM EST Hem/Onc Treatment Hematology/Oncology Treatment, [place] 200 [facility], [place] [address] 08/02/2023 11:00 AM EST Hem/Onc Treatment Hematology/Oncology Treatment, [address], [place] [address] 08/09/2023 1:00 PM EST Nurse Only Pulmonary Medicine, [facility] 132 [facility] [place] [address] Gw, Nurse Pulmonary 132 [facility] [place] [address] 10/19/2023 11:15 AM EDT Office Visit Otolaryngology [facility] [address] [place] [address] Martita Gaston MD [address] [place] [address] 11/14/2023 3:00 PM EDT Office Visit [address] [phone] Ruel Fajardo MD [address] [place] [address] [place] [address] 11/20/2023 1:30 PM EDT Office Visit Allergy/Immunology [place] 200 [facility] [place] [address] Adriel Montalvo MD 200 [facility] [place] [address] Scheduled Procedures Name Priority Associated Diagnoses Date/Ti [...] D LEVEL ONCE IN A LIFETIME-USE SMARTSET# [id number] Completed 11/18/2020 Influenza Vaccine (FLU shot) Completed [...] injury documented in this encounter Care Teams Booth Usher Relationship Specialty Start Date End Date Ruel Fajardo MD [address] [place] [address] [place] [address] PCP - General Family Medicine 10/17/19 documented as of this encounter
--- OUTSIDE RECORDS SUMMARY | 2023-09-12 10:47 | External Medical Summary | Summary of Care ---
Author Name Unknown Organization [facility] Address [address] [facility] [place] [address] Phone [phone] Care Team Providers Care Barrel Rifler Broach Name Role Phone Ruel Fajardo MD Primary Care Provide r Reason for Visit * Reason Comments eRx-Medication Refill Encounter Details Date Type Department Care Team (Late st Contact Info) Description 07/16/2023 Refill Allergy/Immunology Joesph Harmon [place] 200 [facility] [place] [address] Adriel Montalvo MD 200 [facility] [place] [address] Allergies Active Allergy Reactions Criticality Noted Date Comments Amoxicillin Rash 07/17/2011 documented as of this encounter (statuses as of 07/16/2023) Medications Medication Sig Dispensed Refills Start Date [...] Respimat 2.5 MCG/ACT Inhalation Aerosol Solution (Tiotropium [place] Monohydrate)Indicatio ns:Severe persistent asthma without complication Inhale [...] MUSCLE SPASM 30 Tablet 1 07/13/2023 Active Hospital, Clinic, or Other Facility Administered [...] 100 mgIndications:Eosinophi lic asthma 100 mg SC [id number] 05/22/2023 04/22/2024 Active documented as of this encounter (statuses as of 07/16/2023) Active Problems Problem Noted Date Diagnosed Date [...] as of this encounter (statuses as of 07/16/2023) Resolved Problems Problem Noted Date Diagnosed Date Resolved Date Wedge compression fracture o f unspecified lumbar vertebra, initial encounter for closed fracture 09/06/2022 09/06/2022 Compression of lumbar vertebra 11/18/2020 01/20/2021 Asthma, moderate persistent 08/29/2011 10/16/2011 Asthma exacerbation 07/17/2011 05/13/20 12 documented as of this encounter (statuses as of 07/16/2023) Immunizations Name Administration Dates Next Due COVID-19 [...] pure alcohol) occasional beer- not at present time10/29/20 PHQ-2 Answer Date Recorded PHQ Adult Total [...] Telephone Encounter - Lali Tesfaye LPN - 07/16/2023 10:26 AM ESTRefused Prescriptions: Disp Refills predniSONE 10 MG Oral Tablet (Deltasone) 90 Tab*0 Sig: TAKE 1-3TABLETS BY MOUTH DIRECTEDRefused By: Minerva TESFAYE for Refusal: Duplicate Request------- documented in this encounter Plan of Treatment Upcoming Encounters Date Type Department Care Team (Late st Contact Info) Description 07/24/2023 1:40 PM EST Office Visit Neurology [facility] [place] [address] [place] [address] John Dodge, DO [address] [place] [address] 07/30/2023 11:00 AM EST Hem/Onc Treatment Hematology[facility]On[facility] Treatment, [place] [facility] [address] [place], Chair 7 Hem Onc [place] [address] [place] [address] 07/31/2023 11:00 AM EST Hem/Onc Treatment Hematology/Oncology Treatment, [place] 200 [facility] [address] [place], Chair 5 Hem Onc [facility] 200 [place] [address] 08/01/2023 11:30 AM EST Hem/Onc Treatment Hematology/Oncology Treatment, [place] 200 [facility] [address] 08/02/2023 11:00 AM EST Hem/Onc Treatment Hematology[address], [address] [address] 08/09/2023 1:00 PM EST Nurse Only Pulmonary Medicine, [facility] [address] Gw, [facility] Pulmonary [facility] [place] [address] 10/19/2023 11:15 AM EDT Office Visit Otolaryngology [address] [place] [address] Martita Gaston MD [address] [place] [address] [place] [address] 11/14/2023 3:00 PM EDT Office Visit Family Medicine [address] [phone] Ruel Fajardo MD [address] [place] [address] [place] [address] 11/20/2023 1:30 PM EDT Office Visit Allergy/Immunology [address] [place] [address] Adriel Montalvo MD 200 [facility] [place] [address] Scheduled Procedures Name Priority Associated Diagnoses Date/Ti [...] D LEVEL ONCE IN A LIFETIME-USE SMARTSET# 39805 Completed 11/18/2020 Influenza Vaccine (FLU shot) Completed , 05/15/2022, 06/09/2021, Additional history exists GARDASIL-HPV IMMUNIZATION SERIES Aged Out No longer eligible based on patient's age to complete this topic MENINGOCOCCAL (MENACTRA/MENVEO) Aged Out No longer eligible based on patient's age to complete this topic documented as of this encounter Medical Devices Not on filedocumented as of this encounter Care Teams Barrel Rifler Broach Relationship Specialty Start Date End Date Ruel Fajardo MD [address] [place] [address] [place] [address] PCP - General Family Medicine 10/17/19 documented as of this encounter
--- OUTSIDE RECORDS SUMMARY | 2023-09-12 10:47 | External Medical Summary | Summary of Care ---
Author Name Unknown Organization [facility] Address [address] [facility] [place] [address] Phone [phone] Care Team Providers Care Market Analyst Name Role Phone Ruel Fajardo MD Primary Care Provide r Reason for Visit * Reason Onset Date Comments Medication Refill 07/16/2023 Encounter Details Date Type Department Care Team (Late st Contact Info) Description 07/16/2023 Refill Allergy/Immunology Joesph Harmon [place] 200 [place] [address] Mihir Vidal MD [address] [facility] [place] [address] Allergies Active Allergy Reactions Criticality Noted Date [...] (vitamin B-2)Indications:CONSUELO P (chronic inflammatory demyelinating polyneuropathy) ([facility]) Take by mouth 4 Tablets in the [...] Capsule (Neurontin)Indicati ons:CIDP (chronic inflammatory demyelinating polyneuropathy) ([facility]) 3 tabs at bedtime 90 Capsule 5 [...] Respimat 2.5 MCG/ACT Inhalation Aerosol Solution (Tiotropium [place] Monohydrate)Indicat ions:Severe persistent asthma without complication Inhale [...] as directed 90 Tablet 0 07/16/2023 Active predniSONE 10 MG Oral Tablet (Deltasone) 1-3 tabs daily as directed 90 Tablet 0 05/24/2023 Discontinue d(Refill) Hospital, Clinic, or Other [...] 100 mgIndications:Eosinophi lic asthma 100 mg SC [id number] 05/22/2023 04/22/2024 Active documented as of this [...] Telephone Encounter - Mihir Vidal MD - 07/16/2023 12:19 PM ESTSigned Prescriptions: Disp Refills predniSONE 10 MG Oral Tablet (Deltasone) 90 Tab*0 Si-3 tabs daily as directed Authorizing Provider: MIHIR VIDAL * Telephone Encounter - Lali Tesfaye LPN - 07/16/2023 10:10 AM ESTPending Prescriptions: Disp Refills predniSONE 10 MG Oral Tablet (Deltasone) 90 Tab*0 Si-3 tabs daily as directed * Telephone Encounter - Lali Tesfaye LPN - 07/16/2023 10:09 AM EST Pending Prescriptions: Disp Refills predniSONE 10 MG Oral Tablet (Deltasone) 90 Tab*0 Si-3 tabs daily as directed Last Visit: 11/14/2022 (in office), 06/07/2020 (telemedicine) Next Visit: 11/20/2023 Last date the medication was ordered: 05/24/23. Health Maintenance Topic Date Due DTaP,Tdap,and Td Vaccines (1 - Tdap) Never done Zoster Vaccines (1 of 2) Never done Pneumococcal Vaccine: 65+ Years (3 - PPSV23 or PCV20) 06/03/2020 Hepatitis B (2 of 2 - CpG 2-dose series) 11/01/2020 *BISPHONATE OR OTHER ACCEPTABLE MEDICATION NEEDED FOR OSTEOPOROSIS (REFER TO SMARTSET #2203) Never done COVID-19 Vaccine (3 - Moderna risk series) 07/08/2021 DXA Scan 07/29/2021 GFR 09/07/2023 Depression Screening 05/11/2024 Albumin/Creatinine Ratio 09/06/2025 Diabetes Screening 09/06/2025 Lipid Panel 09/07/2027 COLONOSCOPY-EVERY 5 YRS AGES 18-100 11/22/2027 VITAMIN D LEVEL ONCE IN A LIFETIME-USE SMARTSET# 83069 Completed Influenza Vaccine (FLU shot) Completed AAA [...] 07/24/2023 1:40 PM EST Office Visit Neurology [facility] [place] [address] John Dodge, DO 200 [facility] [place], [place] [address] 07/30/2023 11:00 AM EST Hem/Onc Treatment Hematology/Oncology Treatment, [place] 200 [facility], [place] [address] [place], Chair 7 Hem Onc [address] [place], [place] [address] 07/31/2023 11:00 AM EST Hem/Onc Treatment Hematology/Oncology Treatment, [place] 200 [facility], [place] [address] [place], Chair 5 Hem Onc [address] [place] [address] 08/01/2023 11:30 AM EST Hem/Onc Treatment Hematology/Oncology Treatment, [place] 200 [facility], [place] [address] 08/02/2023 11:00 AM EST Hem/Onc Treatment Hematology/Oncology Treatment, [place] 200 [place] [address] 08/09/2023 1:00 PM EST Nurse Only Pulmonary Medicine, [facility] 132 [facility] [place] [address] Gw, Nurse Pulmonary 132 [facility] [place] [address] 10/19/2023 11:15 AM EDT Office Visit Otolaryngology [facility] 132 [facility] [place] [address] Martita Gaston MD 132 [facility] [address] 11/14/2023 3:00 PM EDT Office Visit Family Medicine [address] [phone] Ruel Fajardo MD [address] [place] [address] [place] [address] 11/20/2023 1:30 PM EDT Office Visit Allergy/Immunology [facility] 200 [place] [address] Mihir Vidal MD [address] [place] [address] [place] [address] Scheduled Procedures Name Priority Associated Diagnoses Date/Ti [...] D LEVEL ONCE IN A LIFETIME-USE SMARTSET# [id number] Completed 11/18/2020 Influenza Vaccine (FLU shot) Completed , 05/15/2022, 06/09/2021, Additional history exists GARDASIL-HPV IMMUNIZATION SERIES Aged Out No longer eligible based on patient's age to complete this topic MENINGOCOCCAL (MENACTRA/MENVEO) Aged Out No longer eligible based on patient's age to complete this topic documented as of this encounter Medical Devices Not on filedocumented as of this encounter Care Teams Market Analyst Relationship Specialty Start Date End Date Ruel Fajardo MD [address] [place] [address] [place] [address] PCP - General Family Medicine 10/17/19 documented as of this encounter
--- OUTSIDE RECORDS SUMMARY | 2023-09-12 10:47 | External Medical Summary | Summary of Care ---
Author Name Unknown Organization [facility] Address [address] [facility] [place] [address] Phone [phone] Care Team Providers Care Commercial Estimator Name Role Phone Ruel Fajardo MD Primary Care Provide r Reason for Visit * Reason Comments IV Therapy Privigen. * Episode Based Medications (Routine) - Authorized Specialty Diagnoses / Procedures Referred By Contac t Referred To Contact Diagnoses CIDP (chronic inflammatory demyelinating polyneuropathy) ([facility]) Procedures TX INJ IVIG PRIVIGEN 500 MG John Dodge, DO [address] [place] [address] Anc Hem/Onc Joesph Harmon DEPT CLOSED - 05/08/[address] [place] [address] [phone] Referral ID Status Reason Start Date Expiration Date V isits Requested Visits Authorized [id number] Authorized 03/16/2023 03/16/2024 [id number] Encounter Details Date Type Department Care Team (Latest Contact Info) Description 07/04/2023 11:00 AM EST Hem/Onc Treatment Hematology/Oncolog y Treatment, [place] [address] [place] [address] [place], Chair 3 Hem Onc [place] [address] [place] [address] CIDP (chronic inflammatory demyelinating polyneuropathy) ([facility])* Allergies Active Allergy Reactions Criticality Noted Date Comments Amoxicillin Rash 07/17/2011 documented as of this encounter (statuses as of 07/04/2023) Medications Medication Sig Dispensed Refills Start Date [...] Tablet (vitamin B-2)Indications:CIDP (chronic inflammatory demyelinating polyneuropathy) ([facility] [...] Capsule (Neurontin)Indication s:CIDP (chronic inflammatory demyelinating polyneuropathy) ([facility] [...] Respimat 2.5 MCG/ACT Inhalation Aerosol Solution (Tiotropium [place] Monohydrate)Indicatio ns:Severe persistent asthma without complication Inhale [...] 100 mgIndications:Eosinophi lic asthma 100 mg SC [id number] 05/22/2023 04/22/2024 Active documented as of this encounter (statuses as of 07/04/2023) Active Problems Problem Noted Date Diagnosed Date [...] as of this encounter (statuses as of 07/04/2023) Resolved Problems Problem Noted Date Diagnosed Date Resolved Date Wedge compression fracture o f unspecified lumbar vertebra, initial encounter for closed fracture 09/06/2022 09/06/2022 Compression of lumbar vertebra 11/18/2020 01/20/2021 Asthma, moderate persistent 08/29/2011 10/16/2011 Asthma exacerbation 07/17/2011 05/13/20 12 documented as of this encounter (statuses as of 07/04/2023) Immunizations Name Administration Dates Next Due COVID-19 [...] Team (Late st Contact Info) Description 07/04/2023 2:30 PM EST Nurse Only Pulmonary Medicine, [facility] 132 [facility] [address] Gw, Nurse Pulmonary 132 [facility] [address] 07/05/2023 11:00 AM EST Hem/Onc Treatment Hematology/Oncology Treatment, [address] [address] [place], Chair 7 Hem Onc [facility] [address] [place] [address] [place] [address] 07/24/2023 1:40 PM EST Office Visit Neurology [facility] [place] 200 [facility] [place] [address] John Dodge, DO 200 [facility] [place] [address] 07/30/2023 11:00 AM EST Hem/Onc Treatment Hematology/Oncology Treatment, [place] 200 [facility] [address] [place], Chair 7 Hem Onc [place] 200 [facility] [place] [address] 07/31/2023 11:00 AM EST Hem/Onc Treatment Hematology/Oncology Treatment, [place] 200 [facility] [address] [place], Chair 5 Hem Onc [address] [place] [address] 08/01/2023 11:30 AM EST Hem/Onc Treatment Hematology/Oncology Treatment, [address] [address] 08/02/2023 11:00 AM EST Hem/Onc Treatment Hematology/Oncology Treatment, [address] [address] 10/19/2023 11:15 AM EDT Office Visit Otolaryngology [facility] [address] [place] [address] Martita Gaston MD [address] [place] [address] 11/14/2023 3:00 PM EDT Office Visit Family Medicine [address] [phone] Ruel Fajardo MD [address] [place], [place] [address] [place] [address] 11/20/2023 1:30 PM EDT Office Visit Allergy/Immunology [address] [place] [address] Adriel Montalvo MD [address] [place] [address] [place] [address] Scheduled Procedures Name Priority Associated Diagnoses Date/Ti [...] D LEVEL ONCE IN A LIFETIME-USE SMARTSET# 80211 Completed 11/18/2020 Influenza Vaccine (FLU shot) Completed [...] Diagnoses Diagnosis CIDP (chronic inflammatory demyelinating polyneuropathy) ([facility])- Primary Chronic inflammatory demyelinating polyneuritis documented in this encounter Administered Medications Active Administered Medications - up to 3 most recent administrations Medication Order MAR Action Action Date Dose Rate Site diphenhydrAMINE (Benadryl) inj 50 mg 50 mg, IV Push, ONCE PRN Other, Hypersensitivity Reaction, Starting on Sun07/04/23 at 1110, Until Sun07/05/23 at 1109, For 24 hours EPINEPHrine 1 MG/ML inj 0.3 mg 0.3 mg, Intramuscular, ONCE PRN Other, Hypersensitivity Reaction or Anaphylaxis, Starting on Sun07/04/23 at 1110, Until Allison 07/05/23 at 1109, For 24 hours hEParin 100 UNIT/ML Lock Flush inj 500 Units 500 Units (5 mL), IV Lock, PRN Other, IV Flush, Starting on Sun07/04/23 at 1110, Until Allison 07/05/23 at 1109, For 24 hours, Do not flush if lock, PICC, or central line not in place; IV infusing or unable to flush. Given 07/04/2023 1:33 PM EST 500 Units Hydrocortisone Sod Suc (PF) (Solu-Cortef) inj 100 mg 100 mg, IV Push, ONCE PRN Other, Hypersensitivity Reaction, Starting on Sun07/04/23 at 1110, Until Sun07/05/23 at 1109, For 24 hours NSS infusion 500 mL, Intravenous, at 50 mL/hr, CONTINUOUS, Starting on Sun07/04/23 at 1215, Until Sun07/04/23 at 2214 Start Infusion 07/04/2023 11:14 AM EST 500 mL 50 mL/hr sodium chloride 0.9 % flush central line 10 mL 10 mL, IV Push, PRN Other, IV Flush, Starting on Sun07/04/23 at 1110, Until Sun07/05/23 at 1109, For 24 hours, Do not flush if lock, PICC, or central line not in place; IV infusing or unable to flush. Given 07/04/2023 1:33 PM EST 10 mL Inactive Administered Medications [...] Given 07/04/2023 11:16 AM EST 25 mg Immune Globulin Human-IVIG [...] 11:33 AM EST 5 g 26 mL/hr documented in this encounter Care Teams Commercial Estimator Relationship Specialty Start Date End Date Ruel Fajardo MD [address] [place] [address] [place] [address] PCP - General Family Medicine 10/17/19 documented as of this encounter
--- OUTSIDE RECORDS SUMMARY | 2023-09-12 10:47 | External Medical Summary | Summary of Care ---
Author Name Unknown Organization [facility] Address [address] [facility] [place] [address] Phone [phone] Care Team Providers Care Tableman Name Role Phone Ruel Fajardo MD Primary Care Provide r Reason for Visit * Precert (Within 10 days (routine)) - Authorized Specialty Diagnoses / Procedures Referred By Contac t Referred To Contact Pulmonary Diseases / Pulmonary Diagnoses Severe persistent asthma, uncomplicated Procedures MEPOLIZUMAB INJ, 1 MG John Nielsen MD Pulm Function Lab [place] [address] [address] [facility] [place] [address] Referral ID Status Reason Start Date Expiration Date V isits Requested Visits Authorized [id number] Authorized Precert 08/02/2022 06/24/2099 999 [id number] Encounter Details Date Type Department Care Team (Late st Contact Info) Description 07/04/2023 2:30 PM EST Nurse Only Pulmonary Medicine, [facility] 132 [facility] [place] [address] Gw, Nurse Pulmonary 132 [facility] [place] [address] Arrived Allergies Active Allergy Reactions Criticality Noted [...] B-2)Indications:CIDP (chronic inflammatory demyelinating polyneuropathy) ([facility]) Take by mouth 4 Tablets in [...] 2.5 MCG/ACT Inhalation Aerosol Solution (Tiotropium [place] Monohydrate)Indicatio ns:Severe persistent asthma without complication Inhale [...] 100 mgIndications:Eosinophi lic asthma 100 mg SC [id number] 05/22/2023 04/22/2024 Active documented as of this [...] Care Team (Late st Contact Info) Description 07/05/2023 11:00 AM EST Hem/Onc Treatment Hematology/Oncology Treatment, [address] [address] [place], Chair 7 Hem Onc [place] [address] [place] [address] 07/24/2023 1:40 PM EST Office Visit Neurology [facility] [place] 200 [address] [place] [address] John Dodge, DO 200 [facility] [place] [address] 07/30/2023 11:00 AM EST Hem/Onc Treatment Hematology/Oncology Treatment, [address] [place] [address] [place], Chair 7 Hem Onc [place] [address] [place] [address] 07/31/2023 11:00 AM EST Hem/Onc Treatment Hematology/Oncology Treatment, [address] [phone] [place], Chair 5 Hem Onc [address] [place] [address] 08/01/2023 11:30 AM EST Hem/Onc Treatment Hematology/Oncology Treatment, [address] [address] 08/02/2023 11:00 AM EST Hem/Onc Treatment Hematology/Oncology Treatment, [address] [address] 08/09/2023 1:00 PM EST Nurse Only Pulmonary Medicine, [facility] 132 [facility] [place] [address] Gw, Nurse Pulmonary 132 [facility] [place] [address] 10/19/2023 11:15 AM EDT Office Visit Otolaryngology [facility] 132 [facility] [place] [address] Martita Gaston MD 132 [facility] [place] [address] 11/14/2023 3:00 PM EDT Office Visit Family Medicine [address] [phone] Ruel Fajardo MD [address] [place] [address] [place] [address] 11/20/2023 1:30 PM EDT Office Visit Allergy/Immunology [address] [place] [address] Adriel Montalvo MD [address] [place] [address] [place] [address] Scheduled Procedures Name Priority Associated Diagnoses Date/Ti [...] D LEVEL ONCE IN A LIFETIME-USE SMARTSET# [id number] Completed 11/18/2020 Influenza Vaccine (FLU shot) Completed [...] (Nucala) inj 100 mg 100 mg, Subcutaneous, [id number], First dose on Sun05/22/23 at 1445, Last dose on Sun03/25/24 at 1445, For 12 doses Given 07/04/2023 2:50 PM EST 100 mg Arm Left Upper Given 05/22/2023 2:20 PM EST 100 mg Ar m Left Upper documented in this encounter Care Teams Tableman Relationship Specialty Start Date End Date Ruel Fajardo MD [address] [place] [address] [place] [address] PCP - General Family Medicine 10/17/19 documented as of this encounter
--- OUTSIDE RECORDS SUMMARY | 2023-09-12 10:47 | External Medical Summary | Summary of Care ---
Author Name Unknown Organization [facility] Address [address] [facility] [place] [address] Phone [phone] Care Team Providers Care Gift Manager Name Role Phone Ruel Fajardo MD Primary Care Provide r Reason for Visit * Reason Comments IV Therapy Privigen. * Episode Based Medications (Routine) - Authorized Specialty Diagnoses / Procedures Referred By Contac t Referred To Contact Diagnoses CIDP (chronic inflammatory demyelinating polyneuropathy) ([facility]) Procedures [place] INJ IVIG PRIVIGEN 500 MG John Dodge, DO [address] [place] [address] Anc Hem/Onc Joesph Harmon DEPT CLOSED - 05/08/[address] [phone] Referral ID Status Reason Start Date Expiration Date V isits Requested Visits Authorized [id number] Authorized 03/16/2023 03/16/2024 [id number] Encounter Details Date Type Department Care Team (Latest Contact Info) Description 07/05/2023 11:00 AM EST Hem/Onc Treatment Hematology/Oncolog y Treatment, [facility] [address] [place] [address] [place], Chair 7 Hem Onc Scenery [address] [place] [address] CIDP (chronic inflammatory demyelinating polyneuropathy) ([facility])* Allergies Active Allergy Reactions Criticality Noted Date Comments Amoxicillin Rash 07/17/2011 documented as of this encounter (statuses as of 07/05/2023) Medications Medication Sig Dispensed Refills Start Date [...] (chronic inflammatory demyelinating polyneuropathy) ([facility]) Take by mouth 4 Tablets in the [...] (chronic inflammatory demyelinating polyneuropathy) ([facility]) 3 tabs at bedtime 90 Capsule 5 [...] Respimat 2.5 MCG/ACT Inhalation Aerosol Solution (Tiotropium [place] Monohydrate)Indicatio ns:Severe persistent asthma without complication Inhale [...] 100 mgIndications:Eosinophi lic asthma 100 mg SC [id number] 05/22/2023 04/22/2024 Active documented as of this encounter (statuses as of 07/05/2023) Active Problems Problem Noted Date Diagnosed Date [...] as of this encounter (statuses as of 07/05/2023) Resolved Problems Problem Noted Date Diagnosed Date Resolved Date Wedge compression fracture o f unspecified lumbar vertebra, initial encounter for closed fracture 09/06/2022 09/06/2022 Compression of lumbar vertebra 11/18/2020 01/20/2021 Asthma, moderate persistent 08/29/2011 10/16/2011 Asthma exacerbation 07/17/2011 05/13/20 12 documented as of this encounter (statuses as of 07/05/2023) Immunizations Name Administration Dates Next Due COVID-19 [...] 1:40 PM EST Office Visit Neurology [facility] [place] [facility] [place] [address] John Dodge, DO 200 [facility] [place] [address] 07/30/2023 11:00 AM EST Hem/Onc Treatment [facility], [place] [facility] [address] [place], Chair 7 Hem Onc Scenery 200 [facility] [place] [address] 07/31/2023 11:00 AM EST Hem/Onc Treatment Hemat[facility] Treatment, [place] [facility] [address] [place], Chair 5 Hem Onc Scenery 200 [facility] [place] [address] 08/01/2023 11:30 AM EST Hem/Onc Treatment H[facility]cology Treatment, [place] [facility] [address] 08/02/2023 11:00 AM EST Hem/Onc Treatment Hematology[address], [address] [address] 08/09/2023 1:00 PM EST Nurse Only Pulmonary Medicine, [facility] 132 [facility] [place] [address] Gw, Nurse Pulmonary 132 [facility] [place] [address] 10/19/2023 11:15 AM EDT Office Visit Otolaryngology [facility] [address] [place] [address] Martita Gaston MD [address] [place] [address] 11/14/2023 3:00 PM EDT Office Visit Family Medicine [address] [place] [phone] Ruel Fajardo MD [address] [place] [address] [place] [address] 11/20/2023 1:30 PM EDT Office Visit Allergy/Immunology [facility] 200 [facility] [place] [address] Adriel Montalvo MD [address] [facility] [address] Scheduled Procedures Name Priority Associated Diagnoses Date/Ti [...] D LEVEL ONCE IN A LIFETIME-USE SMARTSET# 44217 Completed 11/18/2020 Influenza Vaccine (FLU shot) Completed [...] Diagnosis CIDP (chronic inflammatory demyelinating polyneuropathy) ([facility])- Primary Chronic inflammatory demyelinating polyneuritis documented in this encounter Administered Medications Active Administered Medications - up to 3 most recent administrations Medication Order MAR Action Action Date Dose Rate Site diphenhydrAMINE (Benadryl) inj 50 mg 50 mg, IV Push, ONCE PRN Other, Hypersensitivity Reaction, Starting on Allison 07/05/23 at 1107, Until Sun07/06/23 at 1106, For 24 hours EPINEPHrine 1 MG/ML inj 0.3 mg 0.3 mg, Intramuscular, ONCE PRN Other, Hypersensitivity Reaction or Anaphylaxis, Starting on Allison 07/05/23 at 1107, Until Sun07/06/23 at 1106, For 24 hours hEParin 100 UNIT/ML Lock Flush inj 500 Units 500 Units (5 mL), IV Lock, PRN Other, IV Flush, Starting on Allison 07/05/23 at 1107, Until Sun07/06/23 at 1106, For 24 hours, Do not flush if lock, PICC, or central line not in place; IV infusing or unable to flush. Hydrocortisone Sod Suc (PF) (Solu-Cortef) inj 100 mg 100 mg, IV Push, ONCE PRN Other, Hypersensitivity Reaction, Starting on Sun07/05/23 at 1107, Until Sun07/06/23 at 1106, For 24 hours NSS infusion 500 mL, Intravenous, at 50 mL/hr, CONTINUOUS, Starting on Sun07/05/23 at 1215, Until Sun07/05/23 at 2214 Start Infusion 07/05/2023 11:11 AM EST 500 mL 50 mL/hr sodium chloride 0.9 % flush central line 10 mL 10 mL, IV Push, PRN Other, IV Flush, Starting on Sun07/05/23 at 1107, Until Sun07/06/23 at 1106, For 24 hours, Do not flush if lock, PICC, or central line not in place; IV infusing or unable to flush. Inactive Administered Medications - up to 3 most recent administrations Medication Order MAR Action Action Date Dose Rate Site Acetaminophen (Tylenol) tab 650 mg 650 mg, Oral, ONCE, On Sun07/05/23 at 1215, For 1 dose, Maximum of 4 grams (4000 mg) per day. Given 07/05/2023 11:11 AM EST 650 mg diphenhydrAMINE (Benadryl) cap 25 mg 25 mg, Oral, ONCE, On Sun07/05/23 at 1215, For 1 dose Given 07/05/2023 11:11 AM EST 25 mg Immune Globulin Human-IVIG 10% (Privigen) IV 40 g 40 g, IV Piggyback, ONCE, 1 dose, On Sun07/05/23 at 1245, Total dose = 45 gm [...] 11:25 AM EST 5 g 26 mL/hr documented in this encounter Care Teams Gift Manager Relationship Specialty Start Date End Date Ruel Fajardo MD [address] [place] [address] [place] [phone] PCP - General Family Medicine 10/17/19 documented as of this encounter
--- OUTSIDE RECORDS SUMMARY | 2023-09-12 10:48 | External Medical Summary | Summary of Care ---
Author Name Unknown Organization [facility] Address [address] [facility] [place] [address] Phone [phone] Care Team Providers Care Cryptologic Support Specialist Name Role Phone Ruel Fajardo MD Primary Care Provide r Reason for Visit * Reason Comments IV Therapy Privigen. * Episode Based Medications (Routine) - Authorized Specialty Diagnoses / Procedures Referred By Contac t Referred To Contact Diagnoses CIDP (chronic inflammatory demyelinating polyneuropathy) ([facility]) Procedures [place] INJ IVIG PRIVIGEN 500 MG John Dodge, DO [address] [place] [address] Anc Hem/Onc [facility] DEPT CLOSED - 05/08/[address] [phone] Referral ID Status Reason Start Date Expiration Date V isits Requested Visits Authorized [id number] Authorized 03/16/2023 03/16/2024 [id number] Encounter Details Date Type Department Care Team (Latest Contact Info) Description 07/02/2023 11:00 AM EST Hem/Onc Treatment Hematology/Oncolog y Treatment, [place] [address] [place] [address] [place], Chair 8 Hem Onc Scenery [address] [place] [address] CIDP (chronic inflammatory demyelinating polyneuropathy) ([facility])* Allergies Active Allergy Reactions Criticality Noted Date Comments Amoxicillin Rash 07/17/2011 documented as of this encounter (statuses as of 07/02/2023) Medications Medication Sig Dispensed Refills Start Date [...] (Neurontin)Indication s:CIDP (chronic inflammatory demyelinating polyneuropathy) ([facility]) 3 tabs at bedtime 90 Capsule 5 [...] Respimat 2.5 MCG/ACT Inhalation Aerosol Solution (Tiotropium [place] Monohydrate)Indicatio ns:Severe persistent asthma without complication Inhale [...] 100 mgIndications:Eosinophi lic asthma 100 mg SC [id number] 05/22/2023 04/22/2024 Active documented as of this encounter (statuses as of 07/02/2023) Active Problems Problem Noted Date Diagnosed Date [...] as of this encounter (statuses as of 07/02/2023) Resolved Problems Problem Noted Date Diagnosed Date Resolved Date Wedge compression fracture o f unspecified lumbar vertebra, initial encounter for closed fracture 09/06/2022 09/06/2022 Compression of lumbar vertebra 11/18/2020 01/20/2021 Asthma, moderate persistent 08/29/2011 10/16/2011 Asthma exacerbation 07/17/2011 05/13/20 12 documented as of this encounter (statuses as of 07/02/2023) Immunizations Name Administration Dates Next Due COVID-19 [...] Nursing Notes * Araceli Luong, [place] - 07/02/2023 1:25 PM EST Goals: Patient [...] Care Team (Late st Contact Info) Description 07/03/2023 11:00 AM EST Hem/Onc Treatment Hematology/[address], [address] [address] [place], Chair 5 Hem Onc Scenery [address] [place] [address] [place] [address] 07/03/2023 2:15 PM EST Nurse Only Pulmonary Medicine, [facility] 132 [place] [address] Gw, Nurse Pulmonary 132 [place] [address] 07/04/2023 11:00 AM EST Hem/Onc Treatment Hematology/Oncology Treatment, [address] [address] [place], Chair 3 Hem Onc Scenery 200 [facility] [place] [address] 07/05/2023 11:00 AM EST Hem/Onc Treatment Hematology/Oncology Treatment, [address] [address] [place], Chair 7 Hem Onc Scenery 200 [facility] [place] [address] 07/24/2023 1:40 PM EST Office Visit Neurology [facility] 200 [facility] [place], [place] [address] John Dodge, 200 [facility] [place], [place] [address] 07/30/2023 11:00 AM EST Hem/Onc Treatment Hematology/Oncology Treatment, [place] 200 [facility], [place] [address] [place], Chair 7 Hem Onc [facility] 200 [facility] [place] [address] 07/31/2023 11:00 AM EST Hem/Onc Treatment Hematology/Oncology Treatment, [place] [facility] [address] [place], Chair 5 Hem Onc [facility] 200 [facility] [place] [address] 08/01/2023 11:30 AM EST Hem/Onc Treatment Hematology/Oncology Treatment, [address], [place] [address] 08/02/2023 11:00 AM EST Hem/Onc Treatment Hematology/Oncology Treatment, [address] [address] 10/19/2023 11:15 AM EDT Office Visit Otolaryngology [facility] [place] [address] Martita Gaston MD 132 [facility] [place] [address] 11/14/2023 3:00 PM EDT Office Visit Family Medicine [address] [place] [phone] Ruel Fajardo MD [address] [place] [address] [place] [address] 11/20/2023 1:30 PM EDT Office Visit Allergy/Immunology [facility] [address] [place], [place] [address] Adriel Montalvo MD [address] [place], [place] [address] Scheduled Procedures Name Priority Associated Diagnoses Date/Ti [...] D LEVEL ONCE IN A LIFETIME-USE SMARTSET# [id number] Completed 11/18/2020 Influenza Vaccine (FLU shot) Completed [...] Diagnosis CIDP (chronic inflammatory demyelinating polyneuropathy) ([facility])- Primary Chronic inflammatory demyelinating polyneuritis documented in this encounter Administered Medications Active Administered Medications - up to 3 most recent administrations Medication Order MAR Action Action Date Dose Rate Site diphenhydrAMINE (Benadryl) inj 50 mg 50 mg, IV Push, ONCE PRN Other, Hypersensitivity Reaction, Starting on Sun07/02/23 at 1107, Until Sun07/03/23 at 1106, For 24 hours EPINEPHrine 1 MG/ML inj 0.3 mg 0.3 mg, Intramuscular, ONCE PRN Other, Hypersensitivity Reaction or Anaphylaxis, Starting on Sun07/02/23 at 1107, Until Sun07/03/23 at 1106, For 24 hours hEParin 100 UNIT/ML Lock Flush inj 500 Units 500 Units (5 mL), IV Lock, PRN Other, IV Flush, Starting on Sun07/02/23 at 1107, Until Sun07/03/23 at 1106, For 24 hours, Do not flush if lock, PICC, or central line not in place; IV infusing or unable to flush. Given 07/02/2023 1:18 PM EST 500 Units Hydrocortisone Sod Suc (PF) (Solu-Cortef) inj 100 mg 100 mg, IV Push, ONCE PRN Other, Hypersensitivity Reaction, Starting on Sun07/02/23 at 1107, Until Sun07/03/23 at 1106, For 24 hours NSS infusion 500 mL, Intravenous, at 50 mL/hr, CONTINUOUS, Starting on Sun07/02/23 at 1215, Until Sun07/02/23 at 2214 Start Infusion 07/02/2023 11:05 AM EST 500 mL 50 mL/hr sodium chloride 0.9 % flush central line 10 mL 10 mL, IV Push, PRN Other, IV Flush, Starting on Sun07/02/23 at 1107, Until Sun07/03/23 at 1106, For 24 hours, Do not flush if lock, PICC, or central line not in place; IV infusing or unable to flush. Given 07/02/2023 1:18 PM EST 10 mL Inactive Administered Medications [...] Given 07/02/2023 11:11 AM EST 25 mg Immune Globulin [...] mL/hr documented in this encounter Care Teams Cryptologic Support Specialist Relationship Specialty Start Date End Date Ruel Fajardo MD [address] [place] [address] [place] [id number] PCP - General Family Medicine 10/17/19 documented as of this encounter
--- OUTSIDE RECORDS SUMMARY | 2023-09-12 10:48 | External Medical Summary | Summary of Care ---
Author Name Unknown Organization [facility] Address [address] [facility] [place] [address] Phone [phone] Care Team Providers Care Sawmilling Operator Name Role Phone Ruel Hastings MD Primary Care Provide r Reason for Visit * Reason Comments eRx-Medication Refill Encounter Details Date Type Department Care Team (Late st Contact Info) Description 06/19/2023 Refill Family Medicine [address] [phone] Ruel Hatsings MD [address] [place] [address] [place] [phone] Severe persistent asthma without complication Allergies Active Allergy Reactions Criticality Noted Date Comments Amoxicillin Rash 07/17/2011 documented as of this encounter (statuses as of 06/20/2023) Medications Medication Sig Dispensed Refills Start Date [...] (vitamin B-2)Indications: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 120 Tablet 3 2 Active Wixela Inhub 500-50 MCG/ACT Inhalation Aerosol Powder Breath Activated (Fluticasone-Salmet tami)Indications:Se melissa persistent asthma without complication INHALE ONE PUFF BY MOUTH TWICE DAILY 180 Each 3 2 Active Atorvastatin Calcium 10 MG Oral Tablet (Lipitor)Indication s:Mixed hyperlipidemia Take by mouth 1 Tablet in the morning. 30 Tablet 2 2 Active Azelastine HCl 137 MCG/SPRAY Nasal Solution Administer into nostril 2 Sprays in the morning AND 2 Sprays before bedtime. 30 mL 11 2 Active Gabapentin 100 MG Oral Capsule (Neurontin)Indicati ons:CIDP (chronic inflammatory demyelinating polyneuropathy) ([facility]) 3 tabs at bedtime 90 Capsule 5 2 Active Albuterol Sulfate (2.5 MG/3ML) 0.083% Inhalation Nebulization Solution (Proventil)Indicati ons:Wheeze INHALE ONE VIAL VIA NEBULIZER EVERY 4 HOURS NEEDED FOR WHEEZING OR SHORTNESS OF BREATH 180 mL 1 3 Active hydrALAZINE HCl 25 MG Oral Tablet (Apresoline)Indicat ions:HTN, goal below 140/90 Take 1 Tablet by mouth every 4 hours as needed for Hypertension. If Blood pressure above 160/100 60 Tablet 0 3 Active Losartan Potassium 25 MG Oral [...] in the morning. 90 Tablet 1 3 Active Metoprolol Succinate ER 25 MG Oral [...] Respimat 2.5 MCG/ACT Inhalation Aerosol Solution (Tiotropium [place] Monohydrate)Indicat ions:Severe persistent asthma without complication Inhale [...] IVIG infusion. 60 Capsule 1 3 Active Cyclobenzaprine HCl 5 MG Oral Tablet (Flexeril)Indicatio ns:Weakness of both legs,Numbness and tingling of foot,Lumbar compression fracture (HCC) TAKE ONE TABLET BY MOUTH TWICE DAILY NEEDED FOR MUSCLE SPASM 30 Tablet 1 3 Active predniSONE 10 MG Oral Tablet (Deltasone) 1-3 tabs daily as directed 90 Tablet 0 3 Active Albuterol Sulfate HFA 108 (90 Base) MCG/ACT Inhalation Aerosol SolutionIndications :Severe persistent asthma without complication INHALE 2 PUFFS BY MOUTH EVERY 4 HOURS NEEDED FOR WHEEZING 18 g 5 3 Active Albuterol Sulfate HFA 108 (90 Base) MCG/ACT Inhalation Aerosol SolutionIndications :Severe persistent asthma without complication TAKE 2 PUFFS BY MOUTH EVERY 4 HOURS NEEDED FOR WHEEZE 8.5 g 5 3 06/20/20 23 Discontinued Hospital, Clinic, or Other Facility Administered [...] 100 mgIndications:Eosinophi lic asthma 100 mg SC [id number] 05/22/2023 04/22/2024 Active documented as of this encounter (statuses as of 06/20/2023) Active Problems Problem Noted Date Diagnosed Date [...] as of this encounter (statuses as of 06/20/2023) Resolved Problems Problem Noted Date Diagnosed Date Resolved Date Wedge compression fracture o f unspecified lumbar vertebra, initial encounter for closed fracture 09/06/2022 09/06/2022 Compression of lumbar vertebra 11/18/2020 01/20/2021 Asthma, moderate persistent 08/29/2011 10/16/2011 Asthma exacerbation 07/17/2011 05/13/20 12 documented as of this encounter (statuses as of 06/20/2023) Immunizations Name Administration Dates Next Due COVID-19 [...] encounter Miscellaneous Notes * Telephone Encounter - Poppy Castaneda [facility] - 06/20/2023 1:57 PM EST Signed Prescriptions: Disp Refills Albuterol Sulfate HFA 108 (90 Base) MCG/AC*18 g 5 Sig: INHALE 2 PUFFS BY MOUTH EVERY 4 HOURS NEEDED FOR WHEEZINGAuthorizing Provider: Yana HASTINGS User: POPPY CASTANEDA documented in this encounter Plan of Treatment Upcoming Encounters Date Type Department Care Team (Late st Contact Info) Description 06/22/2023 1:00 PM EST Nurse Only Pulmonary Medicine, [facility] [address] [address] [place]w, Nurse Pulmonary 132 [place] [address] 07/02/2023 11:00 AM EST Hem/Onc Treatment Hematology/Oncology Treatment, [place] [address] [place] [address] [place], Chair 8 Hem Onc Scenery [address] [place], [place] [address] 07/03/2023 11:00 AM EST Hem/Onc Treatment Hematology/Oncology Treatment, [place] 200 [facility] [place] [address] [place], Chair 5 Hem Onc Scenery [address] [place] [address] 07/04/2023 11:00 AM EST Hem/Onc Treatment Hematology/Oncology Treatment, [place] 200 [place] [address] [place], Chair 3 Hem Onc Scenery [address] [place] [address] 07/05/2023 11:00 AM EST Hem/Onc Treatment Hematology/Oncology Treatment, [place] 200 [facility], [place] [address] [place], Chair 7 Hem Onc Scenery [address] [place] [address] 07/24/2023 1:40 PM EST Office Visit Neurology [facility] [place] [address] [place] [address] John Dodge, DO [address] [place] [address] 10/19/2023 11:15 AM EDT Office Visit Otolaryngology [facility] [address] [place] [address] Martita Gaston MD 132 [place] [address] 11/14/2023 3:00 PM EDT Office Visit Family Medicine [address] [place] [phone] Ruel Hastings MD [address] [place] [address] [place] [address] 11/20/2023 1:30 PM EDT Office Visit Allergy/Immunology [facility] [place] [address] Adriel Montalvo MD 200 [facility] [place] [address] Scheduled Procedures Name Priority Associated Diagnoses Date/Ti [...] D LEVEL ONCE IN A LIFETIME-USE SMARTSET# [id number] Completed 11/18/2020 Influenza Vaccine (FLU shot) Completed [...] Diagnoses Diagnosis Severe persistent asthma without complication documented in this encounter Care Teams Sawmilling Operator Relationship Specialty Start Date End Date Ruel Hastings MD [address] [place] [address] [place] [address] PCP - General Family Medicine 10/17/19 documented as of this encounter
--- OUTSIDE RECORDS SUMMARY | 2023-09-12 10:48 | External Medical Summary | Summary of Care ---
Author Name Unknown Organization [facility] Address [address] [facility] [place] [address] Phone [phone] Care Team Providers Care Truss Assembler Name Role Phone Ruel Fajardo MD Primary Care Provide r Reason for Visit * Reason Onset Date Comments Encounter Created in Error 07/03/2023 Encounter Details Date Type Department Care Team (Late st Contact Info) Description 07/03/2023 Telephone Family Medicine [address] [address] Ruel Fajardo MD [address] [place] [address] [place] [address] Encounter Created in Error Allergies Active Allergy Reactions Criticality Noted Date [...] Tablet (vitamin B-2)Indications:CIDP (chronic inflammatory demyelinating polyneuropathy) ([facility]) Take by mouth 4 Tablets [...] Capsule (Neurontin)Indication s:CIDP (chronic inflammatory demyelinating polyneuropathy) ([facility] Respimat 2.5 MCG/ACT Inhalation Aerosol Solution (Tiotropium [place] Monohydrate)Indicatio ns:Severe persistent asthma without complication Inhale [...] 100 mgIndications:Eosinophi lic asthma 100 mg SC [id number] 05/22/2023 04/22/2024 Active documented as of this [...] encounter Miscellaneous Notes * Telephone Encounter - Charlie Guerrero OSA - 07/03/2023 9:50 AM EST . documented in this encounter Plan of Treatment Upcoming Encounters Date Type Department Care Team (Late st Contact Info) Description 07/03/2023 1:15 PM EST Hem/Onc Treatment Hematology/[address], [address] [address] [place], Chair 9 Hem Onc Scenery 200 [facility] [place] [address] 07/04/2023 11:00 AM EST Hem/Onc Treatment Hematology/Oncology Treatment, [address] [address] [place], Chair 3 Hem Onc Scenery 200 [facility] [place] [address] 07/04/2023 2:30 PM EST Nurse Only Pulmonary Medicine, [facility] 132 [facility] [place] [address] Gw, Nurse Pulmonary 132 [facility] [place] [address] 07/05/2023 11:00 AM EST Hem/Onc Treatment Hematology/Oncology Treatment, [address] [address] [place], Chair 7 Hem Onc Scenery 200 [facility] [place] [address] 07/24/2023 1:40 PM EST Office Visit Neurology [facility] 200 [facility] [place], [place] [address] John Dodge, DO 200 [facility] [place], [place] [address] 07/30/2023 11:00 AM EST Hem/Onc Treatment Hematology/Oncology Treatment, [address], [place] [address] [place], Chair 7 Hem Onc [facility] 200 [facility] [place], [place] [address] 07/31/2023 11:00 AM EST Hem/Onc Treatment Hematology/Oncology Treatment, [address], [place] [address] [place], Chair [address] [place], [place] [address] 08/01/2023 11:30 AM EST Hem/Onc Treatment Hematology/Oncology Treatment, [address], [place] [address] 08/02/2023 11:00 AM EST Hem/Onc Treatment Hematology/Oncology Treatment, [address], [place] [address] 10/19/2023 11:15 AM EDT Office Visit Otolaryngology [facility] [address] [address] Martita Gaston MD [address] [place] [address] 11/14/2023 3:00 PM EDT Office Visit Family Medicine [address] [place] [phone] Ruel Fajardo MD [address] [place] [address] [place] [address] 11/20/2023 1:30 PM EDT Office Visit Allergy/Immunology [place] [address] [place] [address] Adriel Montalvo MD [address] [place] [address] Scheduled Procedures Name Priority Associated Diagnoses Date/Ti [...] D LEVEL ONCE IN A LIFETIME-USE SMARTSET# 89002 Completed 11/18/2020 Influenza Vaccine (FLU shot) Completed , 05/15/2022, 06/09/2021, Additional history exists GARDASIL-HPV IMMUNIZATION SERIES Aged Out No longer eligible based on patient's age to complete this topic MENINGOCOCCAL (MENACTRA/MENVEO) Aged Out No longer eligible based on patient's age to complete this topic documented as of this encounter Medical Devices Not on filedocumented as of this encounter Care Teams Truss Assembler Relationship Specialty Start Date End Date Ruel Fajardo MD [address] [place] [address] [place] [phone] PCP - General Family Medicine 10/17/19 documented as of this encounter
--- OUTSIDE RECORDS SUMMARY | 2023-09-12 10:48 | External Medical Summary | Summary of Care ---
Author Name Unknown Organization [facility] Address [address] [facility] [place] [address] Phone [phone] Care Team Providers Care Trade Promotion Analyst Name Role Phone Ruel Fajardo MD Primary Care Provide r Encounter Details Date Type Department Care Team (Late st Contact Info) Description 06/28/2023 Orders Only Neurology [facility] [address] [place] [address] John Dodge, DO [address] [place] [address] Allergies Active Allergy Reactions Criticality Noted Date Comments Amoxicillin Rash 07/17/2011 documented as of this encounter (statuses as of 06/28/2023) Medications Medication Sig Dispensed Refills Start Date [...] demyelinating polyneuropathy) ([facility]) 3 tabs at bedtime 90 Capsule 5 05/22/2022 Active Albuterol Sulfate (2.5 MG/3ML) 0.083% Inhalation Nebulization Solution (Proventil)Indication s:Wheeze INHALE ONE VIAL VIA NEBULIZER EVERY 4 HOURS NEEDED FOR WHEEZING OR SHORTNESS OF BREATH 180 mL 1 10/14/2022 Active hydrALAZINE HCl 25 MG Oral Tablet (Apresoline)Indicatio ns:HTN, goal below 140/90 Take 1 Tablet by mouth every 4 hours as needed for Hypertension. If Blood pressure above 160/100 60 Tablet 0 11/29/2022 Active Losartan Potassium 25 MG Oral Tablet [...] Respimat 2.5 MCG/ACT Inhalation Aerosol Solution (Tiotropium [place] Monohydrate)Indicatio ns:Severe persistent asthma without complication Inhale [...] FOR WHEEZING 18 g 5 06/20/2023 Active Hospital, Clinic, or Other Facility Administered [...] 100 mgIndications:Eosinophi lic asthma 100 mg SC [id number] 05/22/2023 04/22/2024 Active documented as of this encounter (statuses as of 06/28/2023) Active Problems Problem Noted Date Diagnosed Date [...] as of this encounter (statuses as of 06/28/2023) Resolved Problems Problem Noted Date Diagnosed Date Resolved Date Wedge compression fracture o f unspecified lumbar vertebra, initial encounter for closed fracture 09/06/2022 09/06/2022 Compression of lumbar vertebra 11/18/2020 01/20/2021 Asthma, moderate persistent 08/29/2011 10/16/2011 Asthma exacerbation 07/17/2011 05/13/20 12 documented as of this encounter (statuses as of 06/28/2023) Immunizations Name Administration Dates Next Due COVID-19 [...] Care Team (Late st Contact Info) Description 07/02/2023 11:00 AM EST Hem/Onc Treatment Hematology/Oncology Treatment, [place] [facility] [address] [place], Chair 8 Hem Onc Scenery 200 [facility] [place] [address] 07/03/2023 11:00 AM EST Hem/Onc Treatment Hematology/Oncology Treatment, [place] 200 [facility] [address] [place], Chair 5 Hem Onc Scenery 200 [facility] [place] [address] 07/03/2023 2:15 PM EST Nurse Only Pulmonary Medicine, [facility] 132 [facility] [address] Gw, Nurse Pulmonary 132 [facility] [address] 07/04/2023 11:00 AM EST Hem/Onc Treatment Hematology/Oncology Treatment, [place] 200 [facility] [place] [address] [place], Chair 3 Hem Onc Scenery 200 [facility] [place] [address] 07/05/2023 11:00 AM EST Hem/Onc Treatment Hematology/Oncology Treatment, [address] [address] [place], Chair 7 Hem Onc Scenery 200 [facility] [place] [address] 07/24/2023 1:40 PM EST Office Visit Neurology [facility] [address] [place] [address] John Dodge, [address] [place] [address] 10/19/2023 11:15 AM EDT Office Visit Otolaryngology [facility] [address] [place] [address] Martita Gaston MD [address] [place] [address] 11/14/2023 3:00 PM EDT Office Visit Family Medicine [address] [phone] Ruel Fajardo MD [address] [place], [place] [address] [place] [address] 11/20/2023 1:30 PM EDT Office Visit Allergy/Immunology [facility] [address] [place] [address] Adriel Montalvo MD [address] [place] [address] Scheduled Procedures Name Priority Associated Diagnoses Date/Ti [...] D LEVEL ONCE IN A LIFETIME-USE SMARTSET# 84103 Completed 11/18/2020 Influenza Vaccine (FLU shot) Completed , 05/15/2022, 06/09/2021, Additional history exists GARDASIL-HPV IMMUNIZATION SERIES Aged Out No longer eligible based on patient's age to complete this topic MENINGOCOCCAL (MENACTRA/MENVEO) Aged Out No longer eligible based on patient's age to complete this topic documented as of this encounter Medical Devices Not on filedocumented as of this encounter Care Teams Trade Promotion Analyst Relationship Specialty Start Date End Date Ruel Fajardo MD [address] [place] [address] [place] [address] PCP - General Family Medicine 10/17/19 documented as of this encounter
--- OUTSIDE RECORDS SUMMARY | 2023-09-12 10:48 | External Medical Summary | Summary of Care ---
Author Name Unknown Organization [facility] Address [address] [facility] [place] [address] Phone [phone] Care Team Providers Care Punch Operator Name Role Phone Ruel Fajardo MD Primary Care Provide r Reason for Visit * Reason Comments eRx-Medication Refill Encounter Details Date Type Department Care Team (Late st Contact Info) Description 06/28/2023 Refill Family Medicine [address] [phone] Ruel Fajardo MD [address] [place] [address] [place] Ro [phone] HTN, goal below 140/90 Allergies Active Allergy Reactions Criticality Noted Date Comments Amoxicillin Rash 07/17/2011 documented as of this encounter (statuses as of 06/29/2023) Medications Medication Sig Dispensed Refills Start Date [...] Tablet (vitamin B-2)Indications:CIDP (chronic inflammatory demyelinating polyneuropathy) ([facility]) Take by mouth 4 Tablets in [...] Capsule (Neurontin)Indication s:CIDP (chronic inflammatory demyelinating polyneuropathy) ([facility] [...] Respimat 2.5 MCG/ACT Inhalation Aerosol Solution (Tiotropium [place] Monohydrate)Indicatio ns:Severe persistent asthma without complication Inhale [...] 100 mgIndications:Eosinophi lic asthma 100 mg SC [id number] 05/22/2023 04/22/2024 Active documented as of this encounter (statuses as of 06/29/2023) Active Problems Problem Noted Date Diagnosed Date [...] as of this encounter (statuses as of 06/29/2023) Resolved Problems Problem Noted Date Diagnosed Date Resolved Date Wedge compression fracture o f unspecified lumbar vertebra, initial encounter for closed fracture 09/06/2022 09/06/2022 Compression of lumbar vertebra 11/18/2020 01/20/2021 Asthma, moderate persistent 08/29/2011 10/16/2011 Asthma exacerbation 07/17/2011 05/13/20 12 documented as of this encounter (statuses as of 06/29/2023) Immunizations Name Administration Dates Next Due COVID-19 [...] * Telephone Encounter - Yohana Khoury - 06/29/2023 7:17 PM ESTRefused Prescriptions: Disp Refills hydrALAZINE HCl 25 MG Oral Tablet (Apresol*60 Tab*0 Sig: TAKE ONE TABLET EVERY 4 HOURS NEEDEDRefused By: ELSIE KHOURYETReason for Refusal: Duplicate Request------ documented in this encounter Plan of Treatment Upcoming Encounters Date Type Department Care Team (Late st Contact Info) Description 07/02/2023 11:00 AM EST Hem/Onc Treatment Hematology/Oncology Treatment, [place] 200 [facility], [place] [address] [place], Chair 8 [facility] [address] [place] [address] [place] [address] 07/03/2023 11:00 AM EST Hem/Onc Treatment Hematology/Oncology Treatment, [place] 200 [facility] [address] [place], Chair 5 Hem [facility] [address] [place] [address] [place] [address] 07/03/2023 2:15 PM EST Nurse Only Pulmonary Medicine, [facility] 132 [facility] [place] [address] , Nurse Pulmonary 132 [facility] [place] [address] 07/04/2023 11:00 AM EST Hem/Onc Treatment Hematology/Oncology Treatment, [place] 200 [place] [address] [place], Chair 3 Hem Onc Scenery [address] [place] [address] 07/05/2023 11:00 AM EST Hem/Onc Treatment Hematology/Oncology Treatment, [place] 200 [place] [address] [place], Chair 7 Hem Onc Scenery [address] [place] [address] 07/24/2023 1:40 PM EST Office Visit Neurology [facility] [address] [place] [address] John Dodge, [address] [place] [address] 10/19/2023 11:15 AM EDT Office Visit Otolaryngology [facility] 132 [facility] [place] [address] Martita Gaston MD 132 [facility] [place] [address] 11/14/2023 3:00 PM EDT Office Visit Family Medicine [address] [place] [phone] Ruel Fajardo MD [address] [place] [address] [place] [address] 11/20/2023 1:30 PM EDT Office Visit Allergy/Immunology [facility] [address] [place] [address] Adriel Montalvo MD [address] [place] [address] Scheduled Procedures Name Priority Associated Diagnoses Date/Ti [...] D LEVEL ONCE IN A LIFETIME-USE SMARTSET# [id number] Completed 11/18/2020 Influenza Vaccine (FLU shot) Completed [...] hypertension documented in this encounter Care Teams Punch Operator Relationship Specialty Start Date End Date Ruel Fajardo MD [address] [place] [address] [place] [address] PCP - General Family Medicine 10/17/19 documented as of this encounter
--- OUTSIDE RECORDS SUMMARY | 2023-09-12 10:48 | External Medical Summary | Summary of Care ---
Author Name Unknown Organization [facility] Address [address] [facility] [place] [address] Phone [phone] Care Team Providers Care Wheel Tuner Name Role Phone Ruel Fajardo MD Primary Care Provide r Reason for Visit * Reason Comments IV Therapy IVIG 09/26 * Episode Based Medications (Routine) - Authorized Specialty Diagnoses / Procedures Referred By Contac t Referred To Contact Diagnoses CIDP (chronic inflammatory demyelinating polyneuropathy) ([facility]) Procedures GA INJ IVIG PRIVIGEN 500 MG John Dogde, DO [address] [place] [address] Anc Hem/Onc Joesph Harmon DEPT CLOSED - 05/08/[address] [place] [phone] Referral ID Status Reason Start Date Expiration Date V isits Requested Visits Authorized [id number] Authorized 03/16/2023 03/16/2024 [id number] Encounter Details Date Type Department Care Team (Latest Contact Info) Description 06/07/2023 9:00 AM EST Hem/Onc Treatment Hematology/Oncolog y Treatment, [facility] [address] [place] [address] [place], Chair 3 Hem Onc Scenery [address] [place] [address] CIDP (chronic inflammatory demyelinating polyneuropathy) ([facility])* Allergies Active Allergy Reactions Criticality Noted Date Comments Amoxicillin Rash 07/17/2011 documented as of this encounter (statuses as of 06/08/2023) Medications Medication Sig Dispensed Refills Start Date [...] Tablet (vitamin B-2)Indications:CIDP (chronic inflammatory demyelinating polyneuropathy) ([facility]) Take by mouth 4 Tablets [...] Capsule (Neurontin)Indication s:CIDP (chronic inflammatory demyelinating polyneuropathy) ([facility]) 3 tabs at bedtime 90 [...] Respimat 2.5 MCG/ACT Inhalation Aerosol Solution (Tiotropium [place] Monohydrate)Indicatio ns:Severe persistent asthma without complication Inhale 2 Puffs by mouth in the morning. 12 g 2 02/07/2023 Active Montelukast Sodium 10 MG Oral Tablet (Singulair)Indication s:Asthma, severe persistent Take 1 Tablet by mouth in the morning. 90 Tablet 3 02/19/2023 Active Albuterol Sulfate HFA 108 (90 Base) MCG/ACT Inhalation Aerosol SolutionIndications:S evere persistent asthma without complication TAKE 2 PUFFS BY MOUTH EVERY 4 HOURS NEEDED FOR WHEEZE 8.5 g 5 03/23/2023 Active hydroCHLOROthiazide 12.5 MG Oral Capsule (Hydrodiuril)Indicati [...] as directed 90 Tablet 0 05/24/2023 Active Hospital, Clinic, or Other Facility Administered [...] 100 mgIndications:Eosinophi lic asthma 100 mg SC [id number] 05/22/2023 04/22/2024 Active documented as of this encounter (statuses as of 06/08/2023) Active Problems Problem Noted Date Diagnosed Date [...] as of this encounter (statuses as of 06/08/2023) Resolved Problems Problem Noted Date Diagnosed Date Resolved Date Wedge compression fracture o f unspecified lumbar vertebra, initial encounter for closed fracture 09/06/2022 09/06/2022 Compression of lumbar vertebra 11/18/2020 01/20/2021 Asthma, moderate persistent 08/29/2011 10/16/2011 Asthma exacerbation 07/17/2011 05/13/20 12 documented as of this encounter (statuses as of 06/08/2023) Immunizations Name Administration Dates Next Due COVID-19 [...] 1:00 PM EST Nurse Only Pulmonary Medicine, [facility] 132 [facility] [place] [address] Gw, Nurse Pulmonary 132 [facility] [place] [address] 07/02/2023 11:00 AM EST Hem/Onc Treatment Hematology/Oncology Treatment, [place] 200 [place] [address] [place], Chair 8 Hem Onc Scenery [address] [place], [place] [address] 07/03/2023 11:00 AM EST Hem/Onc Treatment Hematology/Oncology Treatment, [place] 200 [place] [address] [place], Chair 5 Hem Onc Scenery [address] [place], [place] [address] 07/04/2023 11:00 AM EST Hem/Onc Treatment Hematology/Oncology Treatment, [place] 200 [place] [address] [place], Chair 3 Hem Onc Scenery [address] [place], [place] [address] 07/05/2023 11:00 AM EST Hem/Onc Treatment Hematology/Oncology Treatment, [place] 200 [place] [address] [place], Chair 7 Hem Onc Scenery [address] [place] [address] 07/24/2023 1:40 PM EST Office Visit Neurology [facility] [address] [place], [place] [address] John Dodge, DO [address] [place] [address] 10/19/2023 11:15 AM EDT Office Visit Otolaryngology [facility] 132 [facility] [place] [address] Martita Gaston MD [address] [place] [address] 11/14/2023 3:00 PM EDT Office Visit Family Medicine [address] [place] [address] Ruel Fajardo MD [address] [place] [address] [place] [address] 11/20/2023 1:30 PM EDT Office Visit Allergy/Immunology [facility] 200 [facility] [place] [address] Adriel Montalvo MD [address] [place] [address] Scheduled Procedures Name Priority Associated Diagnoses Date/Ti [...] D LEVEL ONCE IN A LIFETIME-USE SMARTSET# 33835 Completed 11/18/2020 Influenza Vaccine (FLU shot) Completed [...] Diagnoses Diagnosis CIDP (chronic inflammatory demyelinating polyneuropathy) ([facility])- Primary Chronic inflammatory demyelinating polyneuritis [...] mL/hr documented in this encounter Care Teams Wheel Tuner Relationship Specialty Start Date End Date Ruel Fajardo MD [address] [place] [address] [place] [address] PCP - General Family Medicine 10/17/19 documented as of this encounter
--- OUTSIDE RECORDS SUMMARY | 2023-09-12 10:48 | External Medical Summary | Summary of Care ---
Author Name Unknown Organization [facility] Address [address] [facility] [place] [address] Phone [phone] Care Team Providers Care Employment Law Attorney Name Role Phone Ruel Fajardo MD Primary Care Provide r Reason for Visit * Reason Onset Date Comments Medication Refill 06/28/2023 Encounter Details Date Type Department Care Team (Late st Contact Info) Description 06/28/2023 Refill Family Medicine [address] [address] Ruel Fajardo MD [address] [place] [address] [place] [address] HTN, goal below 140/90 Allergies [...] Respimat 2.5 MCG/ACT Inhalation Aerosol Solution (Tiotropium [place] Monohydrate)Indicat ions:Severe persistent asthma without complication Inhale [...] above 160/100 60 Tablet 0 07/02/2023 Active hydrALAZINE HCl 25 MG Oral Tablet (Apresoline)Indicat ions:HTN, goal below 140/90 Take 1 Tablet by mouth every 4 hours as needed for Hypertension. If Blood pressure above 160/100 60 Tablet 0 11/29/2022 Discontinue d(Refill) Hospital, Clinic, or Other Facility [...] 100 mgIndications:Eosinophi lic asthma 100 mg SC [id number] 05/22/2023 04/22/2024 Active documented as of this [...] encounter Miscellaneous Notes * Telephone Encounter - Mandy Leos MD - 07/02/2023 10:16 AM ESTSigned Prescriptions: Disp Refills hydrALAZINE HCl 25 MG Oral Tablet (Apresol*60 Tab*0 Sig: Take 1 Tablet by mouth every 4 hours as needed for Hypertension. If Blood pressure above 160/100 Authorizing Provider: MANDY LEOS * Telephone Encounter - Guzman Hoffmann [facility] - 06/29/2023 1:16 PM EST Pending Prescriptions: Disp Refills hydrALAZINE HCl 25 MG Oral Tablet (Apresol*60 Tab*0 Sig: Take 1 Tablet by mouth every 4 hours as needed for Hypertension. If Blood pressure above 160/100 * Telephone Encounter - Guzman Hoffmann RPh - 06/29/2023 1:16 PM EST Pending Prescriptions: Disp Refills hydrALAZINE HCl 25 MG Oral Tablet (Apresol*60 Tab*0 Sig: Take 1 Tablet by mouth every 4 hours as needed for Hypertension. If Blood pressure above 160/100 05/11/2023 (in office), 04/28/2021 (telemedicine) 11/14/2023 If no future appointments scheduled, and last appointment is greater than a year ago, please schedule patient for a follow-up appointment Last date the medication was ordered: 11/29/22 Pharmacy: [facility], [address] EDWAR GOYAL Is this request for a controlled substance?No [...] 11:00 AM EST Hem/Onc Treatment Hematology/Oncology Treatment, [place] 200 [facility] [place] [address] [place], Chair 8 Hem Onc Scenery [address] [place], [place] [address] 07/03/2023 11:00 AM EST Hem/Onc Treatment Hematology/Oncology Treatment, [place] 200 [facility] [place] [address] [place], Chair 5 Hem Onc Scenery [address] [place], [place] [address] 07/03/2023 2:15 PM EST Nurse Only Pulmonary Medicine, [facility] 132 [facility] [place] [address] Gw, Nurse Pulmonary 132 [facility] [place] [address] 07/04/2023 11:00 AM EST Hem/Onc Treatment Hematology/Oncology Treatment, [place] 200 [facility], [place] [address] Eden, Chair 3 Hem Onc Scenery [address] [place], [place] [address] 07/05/2023 11:00 AM EST Hem/Onc Treatment Hematology/Oncology Treatment, [place] 200 [facility], [place] [address] Eden, Chair 7 Hem Onc Scenery [address] [place], [place] [address] 07/24/2023 1:40 PM EST Office Visit Neurology [facility] [place] [address] [place], [place] [address] John Dodge, DO [address] [place], [place] [address] 10/19/2023 11:15 AM EDT Office Visit Otolaryngology [facility] 132 [facility] [place] [phone] Martita Gaston MD 132 [facility] [place] [address] 11/14/2023 3:00 PM EDT Office Visit Family Medicine [address] [place] [phone] Ruel Fajardo MD [address] [place] [address] [place] [address] 11/20/2023 1:30 PM EDT Office Visit Allergy/Immunology [employer] [address] [place] [address] Adriel Montalvo MD [address] [place] [address] Scheduled Procedures Name Priority Associated Diagnoses Date/Ti [...] Additional history exists Lipid Panel 09/07/2027 09/06/2022, 08/02/2022, 08/07/2019, Additional history exists COLONOSCOPY-EVERY 5 YRS AGES 18-100 11/22/2027 11/21/2022, 11/21/2022, 04/03/2016, Additional history exists AAA Screening Completed 08/11/2019 VITAMIN D LEVEL ONCE IN A LIFETIME-USE SMARTSET# [id number] Completed 11/18/2020 Influenza Vaccine (FLU shot) Completed [...] hypertension documented in this encounter Care Teams Employment Law Attorney Relationship Specialty Start Date End Date Ruel Fajardo MD [address] [place] [address] [place] [address] PCP - General Family Medicine 10/17/19 documented as of this encounter
--- OUTSIDE RECORDS SUMMARY | 2023-09-12 10:48 | External Medical Summary | Summary of Care ---
Author Name Unknown Organization [facility] Address [address] [facility] [place] [address] Phone [phone] Care Team Providers Care Network Operations Center Technician Name Role Phone Ruel Fajardo MD Primary Care Provide r Reason for Visit * Reason Comments IV Therapy IVIG 09/26 * Episode Based Medications (Routine) - Authorized Specialty Diagnoses / Procedures Referred By Contac t Referred To Contact Diagnoses CIDP (chronic inflammatory demyelinating polyneuropathy) ([facility]) Procedures [place] INJ IVIG PRIVIGEN 500 MG John Dodge, DO [address] [place] [address] Anc Hem/Onc Joesph Harmon DEPT CLOSED - 05/08/[address] [place] [id number] Referral ID Status Reason Start Date Expiration Date V isits Requested Visits Authorized [id number] Authorized 03/16/2023 03/16/2024 999 999 Encounter Details Date Type Department Care Team (Latest Contact Info) Description 06/07/2023 9:00 AM EST Hem/Onc Treatment Hematology/Oncolog y Treatment, [place] [address] [place] [address] Eden, Chair 3 Hem Onc Scenery [address] [place] [address] CIDP (chronic inflammatory demyelinating polyneuropathy) ([facility])* [...] Tablet (vitamin B-2)Indications:CIDP (chronic inflammatory demyelinating polyneuropathy) ([facility]) Take [...] Capsule (Neurontin)Indication s:CIDP (chronic inflammatory demyelinating polyneuropathy) ([facility]) 3 [...] Respimat 2.5 MCG/ACT Inhalation Aerosol Solution (Tiotropium [place] Monohydrate)Indicatio ns:Severe persistent asthma without complication Inhale [...] 100 mgIndications:Eosinophi lic asthma 100 mg SC [id number] 05/22/2023 04/22/2024 Active documented as of this [...] Only Pulmonary Medicine, [facility] 132 [facility] [place] [address] Gw, Nurse Pulmonary 132 [facility] [place] [address] 07/02/2023 11:00 AM EST Hem/Onc Treatment Hematology/Oncology Treatment, [place] 200 [facility] [place] [address] Eden, Chair 8 Hem Onc Scenery [address] [place], [place] [address] 07/03/2023 11:00 AM EST Hem/Onc Treatment Hematology/Oncology Treatment, [place] 200 [facility] [place] [address] [place], Chair 5 Hem Onc Scenery [address] [place], [place] [address] 07/04/2023 11:00 AM EST Hem/Onc Treatment Hematology/Oncology Treatment, [place] 200 [facility] [place] [address] Eden, Chair 3 Hem Onc Scenery [address] [place], [place] [address] 07/05/2023 11:00 AM EST Hem/Onc Treatment Hematology/Oncology Treatment, [place] 200 [facility] [place] [address] Eden, Chair 7 Hem Onc Scenery [address] [place] [address] 07/24/2023 1:40 PM EST Office Visit Neurology [facility] [address] [place], [place] [address] John Dodge, DO [address] [place] [address] 10/19/2023 11:15 AM EDT Office Visit Otolaryngology [facility] 132 [facility] [place] [address] Martita Gaston MD [address] [place] [address] 11/14/2023 3:00 PM EDT Office Visit Family Medicine [address] [place] [address] Ruel Fajardo MD [address] [place] [address] [place] [address] 11/20/2023 1:30 PM EDT Office Visit Allergy/Immunology [facility] 200 [facility] [place] [address] Adriel Montalvo MD [address] [place] [address] Scheduled Procedures Name Priority Associated Diagnoses Date/Ti [...] D LEVEL ONCE IN A LIFETIME-USE SMARTSET# 99268 Completed 11/18/2020 Influenza Vaccine (FLU shot) Completed [...] mL/hr documented in this encounter Care Teams Network Operations Center Technician Relationship Specialty Start Date End Date Ruel Fajardo MD [address] [place] [address] [place] [address] PCP - General Family Medicine 10/17/19 documented as of this encounter
--- OUTSIDE RECORDS SUMMARY | 2023-09-12 10:49 | External Medical Summary | Summary of Care ---
Author Name Unknown Organization [facility] Address [address] [facility] [place] [address] Phone [phone] Care Team Providers Care Hand Plate Stacker Name Role Phone Ruel Fajardo MD Primary Care Provide r Reason for Visit * Reason Comments IV Therapy IVIG 09/26 * Episode Based Medications (Routine) - Authorized Specialty Diagnoses / Procedures Referred By Contac t Referred To Contact Diagnoses CIDP (chronic inflammatory demyelinating polyneuropathy) ([facility]) Procedures [place] INJ IVIG PRIVIGEN 500 MG John Dodge, DO [address] [place] [address] Anc Hem/Onc Joesph Harmon DEPT CLOSED - 05/08/[address] [id number] Referral ID Status Reason Start Date Expiration Date V isits Requested Visits Authorized [id number] Authorized 03/16/2023 03/16/2024 999 [id number] Encounter Details Date Type Department Care Team (Latest Contact Info) Description 06/07/2023 9:00 AM EST Hem/Onc Treatment Hematology/Oncolog y Treatment, [place] [address] [place] [address] Eden, Chair 3 Hem Onc Scenery [address] [place] [address] CIDP (chronic inflammatory demyelinating polyneuropathy) [facility] [...] Respimat 2.5 MCG/ACT Inhalation Aerosol Solution (Tiotropium [place] Monohydrate)Indicatio ns:Severe persistent asthma without complication Inhale [...] 100 mgIndications:Eosinophi lic asthma 100 mg SC [id number] 05/22/2023 04/22/2024 Active documented as of this [...] 1:00 PM EST Nurse Only Pulmonary Medicine, [facility] 132 [facility] [place] [address] Gw, Nurse Pulmonary 132 [facility] [place] [address] 07/02/2023 11:00 AM EST Hem/Onc Treatment Hematology/Oncology Treatment, [place] 200 [place] [address] [place], Chair 8 Hem Onc Scenery [address] [place], [place] [address] 07/03/2023 11:00 AM EST Hem/Onc Treatment Hematology/Oncology Treatment, [place] 200 [place] [address] [place], Chair 5 Hem Onc Scenery [address] [place], [place] [address] 07/04/2023 11:00 AM EST Hem/Onc Treatment Hematology/Oncology Treatment, [place] 200 [place] [address] Eden, Chair 3 Hem Onc Scenery [address] [place], [place] [address] 07/05/2023 11:00 AM EST Hem/Onc Treatment Hematology/Oncology Treatment, [place] 200 [place] [address] [place], Chair 7 Hem Onc Scenery [address] [place] [address] 07/24/2023 1:40 PM EST Office Visit Neurology [facility] [address] [place], [place] [address] John Dodge, DO [address] [place] [address] 10/19/2023 11:15 AM EDT Office Visit Otolaryngology [facility] 132 [facility] [place] [address] Martita Gaston MD [address] [place] [address] 11/14/2023 3:00 PM EDT Office Visit Family Medicine [address] [place] [address] Ruel Fajardo MD [address] [place] [address] [place] [address] 11/20/2023 1:30 PM EDT Office Visit Allergy/Immunology [facility] 200 [facility] [place] [address] Adriel Montalvo MD [address] [place] [address] Scheduled Procedures Name Priority Associated Diagnoses Date/Ti [...] D LEVEL ONCE IN A LIFETIME-USE SMARTSET# [id number] Completed 11/18/2020 Influenza Vaccine (FLU shot) Completed [...] mL/hr documented in this encounter Care Teams Hand Plate Stacker Relationship Specialty Start Date End Date Ruel Fajardo MD [address] [place] [address] [place] [address] PCP - General Family Medicine 10/17/19 documented as of this encounter
--- OUTSIDE RECORDS SUMMARY | 2023-09-12 10:49 | External Medical Summary | Summary of Care ---
Author Name Unknown Organization [facility] Address [address] [facility] [place] [address] Phone [phone] Care Team Providers Care Research Test Engine Operator Name Role Phone Ruel Fajardo MD Primary Care Provide r Reason for Visit * Reason Comments IV Therapy IVIG 09/26 * Episode Based Medications (Routine) - Authorized Specialty Diagnoses / Procedures Referred By Contac t Referred To Contact Diagnoses CIDP (chronic inflammatory demyelinating polyneuropathy) ([facility]) Procedures [place] INJ IVIG PRIVIGEN 500 MG John Dodge, DO [address] [place] [address] Anc Hem/Onc Joesph Harmon DEPT CLOSED - 05/08/[address] [id number] Referral ID Status Reason Start Date Expiration Date V isits Requested Visits Authorized [id number] Authorized 03/16/2023 03/16/[phone] Encounter Details Date Type Department Care Team (Latest Contact Info) Description 06/07/2023 9:00 AM EST Hem/Onc Treatment Hematology/Oncolog y Treatment, [place] [address] [place] [address] [place], Chair 3 Hem Onc Scenery [address] [place] [address] CIDP (chronic inflammatory demyelinating polyneuropathy) ([facility] [...] Respimat 2.5 MCG/ACT Inhalation Aerosol Solution (Tiotropium [place] Monohydrate)Indicatio ns:Severe persistent asthma without complication Inhale [...] 100 mgIndications:Eosinophi lic asthma 100 mg SC [id number] 05/22/2023 04/22/2024 Active documented as of this [...] 1:00 PM EST Nurse Only Pulmonary Medicine, [facility] 132 [facility] [place] [address] Gw, Nurse Pulmonary 132 [facility] [place] [address] 07/02/2023 11:00 AM EST Hem/Onc Treatment Hematology/Oncology Treatment, [place] 200 [place] [address] [place], Chair 8 Hem Onc Scenery [address] [place], [place] [address] 07/03/2023 11:00 AM EST Hem/Onc Treatment Hematology/Oncology Treatment, [place] 200 [place] [address] [place], Chair 5 Hem Onc Scenery [address] [place], [place] [address] 07/04/2023 11:00 AM EST Hem/Onc Treatment Hematology/Oncology Treatment, [place] 200 [place] [address] [place], Chair 3 Hem Onc Scenery [address] [place], [place] [address] 07/05/2023 11:00 AM EST Hem/Onc Treatment Hematology/Oncology Treatment, [place] 200 [place] [address] [place], Chair 7 Hem Onc Scenery [address] [place] [address] 07/24/2023 1:40 PM EST Office Visit Neurology [facility] [address] [place], [place] [address] John Dodge, DO [address] [place] [address] 10/19/2023 11:15 AM EDT Office Visit Otolaryngology [facility] 132 [facility] [place] [address] Martita Gaston MD [address] [place] [address] 11/14/2023 3:00 PM EDT Office Visit Family Medicine [address] [place] [address] Ruel Fajardo MD [address] [place] [address] [place] [address] 11/20/2023 1:30 PM EDT Office Visit Allergy/Immunology [facility] 200 [facility] [place] [address] Adriel Montalvo MD [address] [place] [address] Scheduled Procedures Name Priority Associated Diagnoses Date/Ti [...] D LEVEL ONCE IN A LIFETIME-USE SMARTSET# [id number] Completed 11/18/2020 Influenza Vaccine (FLU shot) Completed [...] mL/hr documented in this encounter Care Teams Research Test Engine Operator Relationship Specialty Start Date End Date Ruel Fajardo MD [address] [place] [address] [place] [address] PCP - General Family Medicine 10/17/19 documented as of this encounter
--- OUTSIDE RECORDS SUMMARY | 2023-09-12 10:49 | External Medical Summary | Summary of Care ---
Author Name Unknown Organization [facility] Address [address] [facility] [place] [address] Phone [phone] Care Team Providers Care Ict Programmer Name Role Phone Ruel Fajardo MD Primary Care Provide r Reason for Visit * Reason Comments IV Therapy IVIG 09/26 * Episode Based Medications (Routine) - Authorized Specialty Diagnoses / Procedures Referred By Contac t Referred To Contact Diagnoses CIDP (chronic inflammatory demyelinating polyneuropathy) ([facility]) Procedures [place] INJ IVIG PRIVIGEN 500 MG John Dodge, DO [address] [place] [address] Anc Hem/Onc Joesph Harmon DEPT CLOSED - 05/08/[address] [id number] Referral ID Status Reason Start Date Expiration Date V isits Requested Visits Authorized [id number] Authorized 03/16/2023 03/16/[phone] Encounter Details Date Type Department Care Team (Latest Contact Info) Description 06/07/2023 9:00 AM EST Hem/Onc Treatment Hematology/Oncolog y Treatment, [place] [address] [place] [address] [place], Chair 3 Hem Onc Scenery [address] [place] [address] CIDP (chronic inflammatory demyelinating polyneuropathy) ([facility])* Allergies Active Allergy Reactions Criticality Noted Date Comments Amoxicillin Rash 07/17/2011 documented as of this encounter (statuses as of 06/07/2023) Medications Medication Sig Dispensed Refills Start Date [...] Tablet (vitamin B-2)Indications:CIDP (chronic inflammatory demyelinating polyneuropathy) ([facility]) Take by mouth 4 Tablets in the [...] Capsule (Neurontin)Indication s:CIDP (chronic inflammatory demyelinating polyneuropathy) ([facility]) 3 tabs at bedtime 90 Capsule 5 [...] Respimat 2.5 MCG/ACT Inhalation Aerosol Solution (Tiotropium [place] Monohydrate)Indicatio ns:Severe persistent asthma without complication Inhale [...] 100 mgIndications:Eosinophi lic asthma 100 mg SC [id number] 05/22/2023 04/22/2024 Active documented as of this encounter (statuses as of 06/07/2023) Active Problems Problem Noted Date Diagnosed Date [...] as of this encounter (statuses as of 06/07/2023) Resolved Problems Problem Noted Date Diagnosed Date Resolved Date Wedge compression fracture o f unspecified lumbar vertebra, initial encounter for closed fracture 09/06/2022 09/06/2022 Compression of lumbar vertebra 11/18/2020 01/20/2021 Asthma, moderate persistent 08/29/2011 10/16/2011 Asthma exacerbation 07/17/2011 05/13/20 12 documented as of this encounter (statuses as of 06/07/2023) Immunizations Name Administration Dates Next Due COVID-19 [...] 1:00 PM EST Nurse Only Pulmonary Medicine, [facility] 132 [facility] [place] [address] Gw, Nurse Pulmonary 132 [facility] [place] [address] 07/02/2023 11:00 AM EST Hem/Onc Treatment Hematology/Oncology Treatment, [place] 200 [place] [address] [place], Chair 8 Hem Onc Scenery [address] [place], [place] [address] 07/03/2023 11:00 AM EST Hem/Onc Treatment Hematology/Oncology Treatment, [place] 200 [place] [address] [place], Chair 5 Hem Onc Scenery [address] [place], [place] [address] 07/04/2023 11:00 AM EST Hem/Onc Treatment Hematology/Oncology Treatment, [place] 200 [place] [address] [place], Chair 3 Hem Onc Scenery [address] [place], [place] [address] 07/05/2023 11:00 AM EST Hem/Onc Treatment Hematology/Oncology Treatment, [place] 200 [place] [address] [place], Chair 7 Hem Onc Scenery [address] [place] [address] 07/24/2023 1:40 PM EST Office Visit Neurology [facility] [address] [place], [place] [address] John Dodge, DO [address] [place] [address] 10/19/2023 11:15 AM EDT Office Visit Otolaryngology [facility] 132 [facility] [place] [address] Martita Gaston MD [address] [place] [address] 11/14/2023 3:00 PM EDT Office Visit Family Medicine [address] [place] [address] Ruel Fajardo MD [address] [place] [address] [place] [address] 11/20/2023 1:30 PM EDT Office Visit Allergy/Immunology [facility] 200 [facility] [place] [address] Adriel Montalvo MD [address] [place] [address] Scheduled Procedures Name Priority Associated Diagnoses Date/Ti [...] D LEVEL ONCE IN A LIFETIME-USE SMARTSET# [id number] Completed 11/18/2020 Influenza Vaccine (FLU shot) Completed [...] Diagnoses Diagnosis CIDP (chronic inflammatory demyelinating polyneuropathy) ([facility])- Primary Chronic inflammatory demyelinating polyneuritis documented in this encounter Administered Medications Active Administered Medications - up to 3 most recent administrations Medication Order MAR Action Action Date Dose Rate Site diphenhydrAMINE (Benadryl) inj 50 mg 50 mg, IV Push, ONCE PRN Other, Hypersensitivity Reaction, Starting on Sun06/07/23 at 0915, Until Sun06/08/23 at 0914, For 24 hours EPINEPHrine 1 MG/ML inj 0.3 mg 0.3 mg, Intramuscular, ONCE PRN Other, Hypersensitivity Reaction or Anaphylaxis, Starting on Sun06/07/23 at 0915, Until Sun06/08/23 at 0914, For 24 hours hEParin 100 UNIT/ML Lock Flush inj 500 Units 500 Units (5 mL), IV Lock, PRN Other, IV Flush, Starting on Allison 06/07/23 at 0915, Until Sun06/08/23 at 0914, For 24 hours, Do not flush if lock, PICC, or central line not in place; IV infusing or unable to flush. Hydrocortisone Sod Suc (PF) (Solu-Cortef) inj 100 mg 100 mg, IV Push, ONCE PRN Other, Hypersensitivity Reaction, Starting on Allison 06/07/23 at 0915, Until Sun06/08/23 at 0914, For 24 hours NSS infusion 500 mL, Intravenous, at 50 mL/hr, CONTINUOUS, Starting on Allison 06/07/23 at 1030, Until Sun06/07/23 at 2028 Start Infusion 06/07/2023 9:15 AM EST 500 mL 50 mL/hr sodium chloride 0.9 % flush central line 10 mL 10 mL, IV Push, PRN Other, IV Flush, Starting on Sun06/07/23 at 0915, Until Sun06/08/23 at 0914, For 24 hours, Do not flush if [...] g, IV Piggyback, ONCE, 1 dose, On Sun06/07/23 at 1100, Total dose = 45 gm [...] 9:30 AM EST 5 g 26 mL/hr documented in this encounter Care Teams Ict Programmer Relationship Specialty Start Date End Date Ruel Fajardo MD [address] [place] [address] [place] [phone] PCP - General Family Medicine 10/17/19 documented as of this encounter
--- OUTSIDE RECORDS SUMMARY | 2023-09-12 10:49 | External Medical Summary | Summary of Care ---
Author Name Unknown Organization [facility] Address [address] [facility] [place] [address] Phone [phone] Care Team Providers Care Labor Expediter Name Role Phone Ruel Fajardo MD Primary Care Provide r Reason for Visit * Reason Comments IV Therapy IVIG 09/26 * Episode Based Medications (Routine) - Authorized Specialty Diagnoses / Procedures Referred By Contac t Referred To Contact Diagnoses CIDP (chronic inflammatory demyelinating polyneuropathy) ([facility]) Procedures [place] INJ IVIG PRIVIGEN 500 MG John Dodge, DO [address] [place] [address] Anc Hem/Onc Joesph Harmon DEPT CLOSED - 05/08/[address] [place] [place] [id number] Referral ID Status Reason Start Date Expiration Date V isits Requested Visits Authorized [id number] Authorized 03/16/2023 03/16/2024 999 999 Encounter Details Date Type Department Care Team (Latest Contact Info) Description 06/07/2023 9:00 AM EST Hem/Onc Treatment Hematology/Oncolog y Treatment, [place] [address] [place] [address] [place], Chair 3 Hem Onc Scenery [address] [place] [address] CIDP (chronic inflammatory demyelinating polyneuropathy) ([facility])* Allergies Active Allergy Reactions Criticality [...] (vitamin B-2)Indications:CIDP (chronic inflammatory demyelinating polyneuropathy) ([facility]) Take by mouth 4 Tablets [...] (Neurontin)Indication s:CIDP (chronic inflammatory demyelinating polyneuropathy) ([facility]) 3 tabs at bedtime 90 [...] 2.5 MCG/ACT Inhalation Aerosol Solution (Tiotropium [place] Monohydrate)Indicatio ns:Severe persistent asthma without complication Inhale [...] 100 mgIndications:Eosinophi lic asthma 100 mg SC [id number] 05/22/2023 04/22/2024 Active documented as of this [...] 1:00 PM EST Nurse Only Pulmonary Medicine, [facility] 132 [facility] [place] [address] Gw, Nurse Pulmonary 132 [facility] [place] [address] 07/02/2023 11:00 AM EST Hem/Onc Treatment Hematology/Oncology Treatment, [place] 200 [place] [address] [place], Chair 8 Hem Onc Scenery [address] [place], [place] [address] 07/03/2023 11:00 AM EST Hem/Onc Treatment Hematology/Oncology Treatment, [place] 200 [place] [address] [place], Chair 5 Hem Onc Scenery [address] [place], [place] [address] 07/04/2023 11:00 AM EST Hem/Onc Treatment Hematology/Oncology Treatment, [place] 200 [place] [address] [place], Chair 3 Hem Onc Scenery [address] [place], [place] [address] 07/05/2023 11:00 AM EST Hem/Onc Treatment Hematology/Oncology Treatment, [place] 200 [place] [address] [place], Chair 7 Hem Onc Scenery [address] [place] [address] 07/24/2023 1:40 PM EST Office Visit Neurology [facility] [address] [place], [place] [address] John Dodge, DO [address] [place] [address] 10/19/2023 11:15 AM EDT Office Visit Otolaryngology [facility] 132 [facility] [place] [address] Martita Gaston MD [address] [place] [address] 11/14/2023 3:00 PM EDT Office Visit Family Medicine [address] [place] [address] Ruel Fajardo MD [address] [place] [address] [place] [address] 11/20/2023 1:30 PM EDT Office Visit Allergy/Immunology [facility] 200 [facility] [place] [address] Adriel Montalvo MD [address] [place] [address] Scheduled Procedures Name Priority Associated Diagnoses Date/Ti [...] D LEVEL ONCE IN A LIFETIME-USE SMARTSET# [id number] Completed 11/18/2020 Influenza Vaccine (FLU shot) Completed [...] Diagnosis CIDP (chronic inflammatory demyelinating polyneuropathy) ([facility])- Primary Chronic inflammatory demyelinating polyneuritis [...] mL/hr documented in this encounter Care Teams Labor Expediter Relationship Specialty Start Date End Date Ruel Fajardo MD [address] [place] [address] [place] [address] PCP - General Family Medicine 10/17/19 documented as of this encounter
--- OUTSIDE RECORDS SUMMARY | 2023-09-12 10:50 | External Medical Summary | Summary of Care ---
Author Name Unknown Organization [facility] Address [address] [facility] [place] [address] Phone [phone] Care Team Providers Care Director Of Primary Name Role Phone Ruel Fajardo MD Primary Care Provide r Reason for Visit * Reason Comments Infusion Privigen. * Episode Based Medications (Routine) - Authorized Specialty Diagnoses / Procedures Referred By Contac t Referred To Contact Diagnoses CIDP (chronic inflammatory demyelinating polyneuropathy) ([facility]) Procedures [place] INJ IVIG PRIVIGEN 500 MG John Dodge, DO [address] [place] [address] Anc Hem/Onc Joesph Harmon DEPT CLOSED - 05/08/23 200 [facility] [place] [phone] Referral ID Status Reason Start Date Expiration Date V isits Requested Visits Authorized [id number] Authorized 03/16/2023 03/16/2024 [id number] Encounter Details Date Type Department Care Team (Latest Contact Info) Description 06/05/2023 9:30 AM EST Hem/Onc Treatment Hematology/Oncolog y Treatment, [place] [address] [place] [address] CIDP (chronic inflammatory demyelinating polyneuropathy) ([facility])* Allergies Active Allergy Reactions Criticality Noted Date Comments Amoxicillin Rash 07/17/2011 documented as of this encounter (statuses as of 06/05/2023) Medications Medication Sig Dispensed Refills Start Date [...] Respimat 2.5 MCG/ACT Inhalation Aerosol Solution (Tiotropium [place] Monohydrate)Indicatio ns:Severe persistent asthma without complication Inhale [...] 100 mgIndications:Eosinophi lic asthma 100 mg SC [id number] 05/22/2023 04/22/2024 Active documented as of this encounter (statuses as of 06/05/2023) Active Problems Problem Noted Date Diagnosed Date [...] as of this encounter (statuses as of 06/05/2023) Resolved Problems Problem Noted Date Diagnosed Date Resolved Date Wedge compression fracture o f unspecified lumbar vertebra, initial encounter for closed fracture 09/06/2022 09/06/2022 Compression of lumbar vertebra 11/18/2020 01/20/2021 Asthma, moderate persistent 08/29/2011 10/16/2011 Asthma exacerbation 07/17/2011 05/13/20 12 documented as of this encounter (statuses as of 06/05/2023) Immunizations Name Administration Dates Next Due COVID-19 [...] Nursing Notes * Araceli Luong RN - 06/05/2023 1:12 PM EST Goals: Patient [...] Care Team (Late st Contact Info) Description 06/06/2023 11:00 AM EST Hem/Onc Treatment Hematology/Oncology Treatment, [address], [place] [address] [place], Chair 5 Hem Onc Scenery 200 [facility] [place] [address] 06/07/2023 9:00 AM EST Hem/Onc Treatment Hematology/[address], [address] [address] [place], Chair 3 Hem Onc Scenery [address] [place] [address] [place] [address] 06/22/2023 1:00 PM EST Nurse Only Pulmonary Medicine, [facility] 132 [place] [address] Gw, Nurse Pulmonary 132 [place] [address] 07/02/2023 11:00 AM EST Hem/Onc Treatment Hematology/Oncology Treatment, [address] [place] [address] [place], Chair 8 Hem Onc Scenery 200 [facility] [place] [address] 07/03/2023 11:00 AM EST Hem/Onc Treatment Hematology/Oncology Treatment, [address], [place] [address] [place], Chair 5 Hem Onc Scenery 200 [facility] [place] [address] 07/04/2023 11:00 AM EST Hem/Onc Treatment Hematology/Oncology Treatment, [place] 200 [facility], [place] [address] [place], Chair 3 Hem Onc Scenery 200 [facility] [place] [address] 07/05/2023 11:00 AM EST Hem/Onc Treatment Hematology/Oncology Treatment, [place] 200 [facility] [place] [address] [place], Chair 7 Hem [facility]c [facility] 200 [facility] [place] [address] 07/24/2023 1:40 PM EST Office Visit Neurology [facility] 200 [facility] [place] [address] John Dodge, 200 [facility] [place] [address] 10/19/2023 11:15 AM EDT Office Visit Otolaryngology [facility] 132 [facility] [place] [address] Martita Gaston MD 132 [facility] [place] [address] 11/14/2023 3:00 PM EDT Office Visit Family Medicine [address] [phone] Ruel Fajardo MD [address] [place] [address] [place] [address] 11/20/2023 1:30 PM EDT Office Visit Allergy/Immunology [facility] 200 [facility] [place] [address] Adriel Montalvo MD 200 [facility] [place] [address] Scheduled Procedures Name Priority Associated Diagnoses Date/Ti [...] D LEVEL ONCE IN A LIFETIME-USE SMARTSET# 06020 Completed 11/18/2020 Influenza Vaccine (FLU shot) Completed [...] ONCE PRN Other, Hypersensitivity Reaction, Starting on Sun06/05/23 at 0938, Until Sun06/06/23 at 0937, For 24 hours EPINEPHrine 1 MG/ML inj 0.3 mg 0.3 mg, Intramuscular, ONCE PRN Other, Hypersensitivity Reaction or Anaphylaxis, Starting on Sun06/05/23 at 0938, Until Sun06/06/23 at 0937, For 24 hours hEParin 100 UNIT/ML Lock Flush inj 500 Units 500 Units (5 mL), IV Lock, PRN Other, IV Flush, Starting on Sun06/05/23 at 0938, Until Sun06/06/23 at 0937, For 24 hours, Do not flush if lock, PICC, or central line not in place; IV infusing or unable to flush. Given 06/05/2023 12:00 PM EST 500 Units Hydrocortisone Sod Suc (PF) (Solu-Cortef) inj 100 mg 100 mg, IV Push, ONCE PRN Other, Hypersensitivity Reaction, Starting on Sun06/05/23 at 0938, Until Sun06/06/23 at 0937, For 24 hours NSS infusion 500 mL, Intravenous, at 50 mL/hr, CONTINUOUS, Starting on Sun06/05/23 at 1045, Until Sun06/05/23 at 2044 Start Infusion 06/05/2023 9:43 AM EST 500 mL 50 mL/hr sodium chloride 0.9 % flush central line 10 mL 10 mL, IV Push, PRN Other, IV Flush, Starting on Sun06/05/23 at 0938, Until Sun06/06/23 at 0937, For 24 hours, Do not flush if lock, PICC, or central line not in place; IV infusing or unable to flush. Given 06/05/2023 12:00 PM EST 10 mL Inactive Administered Medications [...] Given 06/05/2023 9:43 AM EST 25 mg Immune Globulin Human-IVIG [...] Change 06/05/2023 10:20 AM EST 53 mL/hr documented in this encounter Care Teams Director Of Primary Relationship Specialty Start Date End Date Ruel Fajardo MD [address] [place] [address] [place] [address] PCP - General Family Medicine 10/17/19 documented as of this encounter
--- OUTSIDE RECORDS SUMMARY | 2023-09-12 10:50 | External Medical Summary | Summary of Care ---
Author Name Unknown Organization [facility] Address [address] [facility] [place] [address] Phone [phone] Care Team Providers Care Transport Company Manager Name Role Phone Ruel Fajardo MD Primary Care Provide r Reason for Visit * Reason Comments IV Therapy Privigen 06/28 * Episode Based Medications (Routine) - Authorized Specialty Diagnoses / Procedures Referred By Contac t Referred To Contact Diagnoses CIDP (chronic inflammatory demyelinating polyneuropathy) ([facility]) Procedures [place] INJ IVIG PRIVIGEN 500 MG John Dodge, DO [address] [place] [address] Anc Hem/Onc Joesph Harmon DEPT CLOSED - 05/08/[address] [place] [phone] Referral ID Status Reason Start Date Expiration Date V isits Requested Visits Authorized [id number] Authorized 03/16/2023 03/16/2024 [id number] Encounter Details Date Type Department Care Team (Latest Contact Info) Description 06/04/2023 9:00 AM EST Hem/Onc Treatment Hematology/Oncolog y Treatment, [place] [facility] [address] [place] [address] [place], Chair 3 Hem Onc Scenery [address] [place] [address] CIDP (chronic inflammatory demyelinating polyneuropathy) ([facility])* Allergies Active Allergy Reactions Criticality Noted Date Comments Amoxicillin Rash 07/17/2011 documented as of this encounter (statuses as of 06/04/2023) Medications Medication Sig Dispensed Refills Start Date [...] Tablet (vitamin B-2)Indications:CIDP (chronic inflammatory demyelinating polyneuropathy) ([facility]) Take by mouth 4 Tablets [...] Capsule (Neurontin)Indication s:CIDP (chronic inflammatory demyelinating polyneuropathy) ([facility]) 3 tabs at bedtime 90 [...] Respimat 2.5 MCG/ACT Inhalation Aerosol Solution (Tiotropium [place] Monohydrate)Indicatio ns:Severe persistent asthma without complication Inhale [...] 100 mgIndications:Eosinophi lic asthma 100 mg SC [id number] 05/22/2023 04/22/2024 Active documented as of this encounter (statuses as of 06/04/2023) Active Problems Problem Noted Date Diagnosed Date [...] as of this encounter (statuses as of 06/04/2023) Resolved Problems Problem Noted Date Diagnosed Date Resolved Date Wedge compression fracture o f unspecified lumbar vertebra, initial encounter for closed fracture 09/06/2022 09/06/2022 Compression of lumbar vertebra 11/18/2020 01/20/2021 Asthma, moderate persistent 08/29/2011 10/16/2011 Asthma exacerbation 07/17/2011 05/13/20 12 documented as of this encounter (statuses as of 06/04/2023) Immunizations Name Administration Dates Next Due COVID-19 mRNA, LNP-s, No Pre serve, 2-Dose Series (Moderna) 06/10/2021,11/01/2020,10/04/2020 COVID-19, mRNA, LNP-s, PF, B ooster, 100mcg/0.5mg (Moderna) 06/10/2021 Hepatitis B Vaccine, Recombi nant, Adjuvanted, 20 mcg/mL (Heplisav-B) 10/04/2020 Hepatitis B, 20+ yrs 10/04/2020 Pneumococcal Conjugate Vacc, 13 Valent (Prevnar) 06/03/2019 Pneumococcal Polysaccharide PPV23 (Pneumovax) 03/18/2012 SEASONAL INFLUENZA, PF, 6 M & Above, IM , (FLULAVAL or FLUZONE) 04/22/2018,05/14/2017 05/14/2018 Season Influenza, Quad, PF, Adjuvanted, 65+ Yrs, IM (FLUAD) 05/12/2020 Seasonal Influenza, Quadriva lent Hd (Fluzone Hd) [...] Care Team (Late st Contact Info) Description 06/05/2023 9:30 AM EST Hem/Onc Treatment Hematology/Oncology Treatment, [address] [address] 06/06/2023 11:00 AM EST Hem/Onc Treatment Hematology/Oncology Treatment, [address] [address] [place], Chair 5 Hem Onc Scenery [address] [place] [address] [place] [address] 06/07/2023 9:00 AM EST Hem/Onc Treatment Hematology/Oncology Treatment, [address] [address] [place], Chair 3 Hem Onc Scenery [address] [place] [address] [place] [address] 06/22/2023 1:00 PM EST Nurse Only Pulmonary Medicine, [facility] [address] [place], Nurse Pulmonary 132 [facility] [address] 07/02/2023 9:00 AM EST Hem/Onc Treatment Hematology/Oncology Treatment, [address] [address] [place], Chair 2 Hem Onc Scenery 200 [facility] [place] [address] 07/03/2023 9:00 AM EST Hem/Onc Treatment Hematology/Oncology Treatment, [place] 200 [facility], [place] [address] [place], Chair 3 Hem Onc Scenery [address] [place] [address] 07/04/2023 9:00 AM EST Hem/Onc Treatment Hematology/Oncology Treatment, [place] 200 [facility], [place] [address] [place], Chair 6 Hem Onc Scenery [address] [place] [address] 07/05/2023 9:00 AM EST Hem/Onc Treatment Hematology/Oncology Treatment, [place] 200 [facility], [place] [address] [place], Chair 6 Hem Onc Scenery [address] [place] [address] 07/24/2023 1:40 PM EST Office Visit Neurology [facility] [place] [address] [place] [address] John Dodge, DO 200 [facility] [place] [address] 10/19/2023 11:15 AM EDT Office Visit Otolaryngology [facility] [address] [place] [address] Martita Gaston MD 132 [facility] [place] [address] 11/14/2023 3:00 PM EDT Office Visit Family Medicine [address] [place] [phone] Ruel Fajardo MD [address] [place] [address] [place] [address] 11/20/2023 1:30 PM EDT Office Visit Allergy/Immunology [facility] 200 [facility] [place] [address] Adriel Montalvo MD 200 [facility] [place] [address] Scheduled Procedures Name Priority Associated Diagnoses Date/Ti [...] D LEVEL ONCE IN A LIFETIME-USE SMARTSET# [id number] Completed 11/18/2020 Influenza Vaccine (FLU shot) Completed [...] Diagnoses Diagnosis CIDP (chronic inflammatory demyelinating polyneuropathy) ([facility])- Primary Chronic inflammatory demyelinating polyneuritis documented in this encounter Administered Medications Active Administered Medications - up to 3 most recent administrations Medication Order MAR Action Action Date Dose Rate Site diphenhydrAMINE (Benadryl) inj 50 mg 50 mg, IV Push, ONCE PRN Other, Hypersensitivity Reaction, Starting on Sun06/04/23 at 0901, Until Sun06/05/23 at 0900, For 24 hours EPINEPHrine 1 MG/ML inj 0.3 mg 0.3 mg, Intramuscular, ONCE PRN Other, Hypersensitivity Reaction or Anaphylaxis, Starting on Sun06/04/23 at 0901, Until Sun06/05/23 at 0900, For 24 hours hEParin 100 UNIT/ML Lock Flush inj 500 Units 500 Units (5 mL), IV Lock, PRN Other, IV Flush, Starting on Sun06/04/23 at 0901, Until Sun06/05/23 at 0900, For 24 hours, Do not flush if lock, PICC, or central line not in place; IV infusing or unable to flush. Given 06/04/2023 11:14 AM EST 500 Units Hydrocortisone Sod Suc (PF) (Solu-Cortef) inj 100 mg 100 mg, IV Push, ONCE PRN Other, Hypersensitivity Reaction, Starting on Sun06/04/23 at 0901, Until Sun06/05/23 at 0900, For 24 hours NSS infusion 500 mL, Intravenous, at 50 mL/hr, CONTINUOUS, Starting on Sun06/04/23 at 1015, Until Sun06/04/23 at 2014 Start Infusion 06/04/2023 8:55 AM EST 500 mL 50 mL/hr sodium chloride 0.9 % flush central line 10 mL 10 mL, IV Push, PRN Other, IV Flush, Starting on Sun06/04/23 at 0901, Until Sun06/05/23 at 0900, For 24 hours, Do not flush if lock, PICC, or central line not in place; IV infusing or unable to flush. Given 06/04/2023 11:13 AM EST 10 mL Inactive Administered Medications - [...] Given 06/04/2023 9:04 AM EST 25 mg Immune Globulin Human-IVIG [...] Change 06/04/2023 9:30 AM EST 53 mL/hr documented in this encounter Care Teams Transport Company Manager Relationship Specialty Start Date End Date Ruel Fajardo MD [address] [place] [address] [place] [address] PCP - General Family Medicine 10/17/19 documented as of this encounter
--- OUTSIDE RECORDS SUMMARY | 2023-09-12 10:50 | External Medical Summary | Summary of Care ---
Author Name Unknown Organization [facility] Address [address] [facility] [place] [address] Phone [phone] Care Team Providers Care Solar Sales Specialist Name Role Phone Ruel Fajardo MD Primary Care Provide r Encounter Details Date Type Department Care Team (Late st Contact Info) Description 05/22/2023 1:00 PM EST Nurse Only Pulmonary Medicine, [facility] 132 [facility] [place] [address] [place]w, Nurse Pulmonary 132 [facility] [place] [address] Arrived Allergies Active Allergy Reactions Criticality Noted Date Comments Amoxicillin Rash 07/17/2011 documented as of this encounter (statuses as of 05/22/2023) Medications Medication Sig Dispensed Refills Start Date [...] Tablet (vitamin B-2)Indications:CIDP (chronic inflammatory demyelinating polyneuropathy) ([facility]) Take by mouth 4 Tablets [...] Capsule (Neurontin)Indication s:CIDP (chronic inflammatory demyelinating polyneuropathy) ([facility]) 3 tabs at bedtime 90 [...] Respimat 2.5 MCG/ACT Inhalation Aerosol Solution (Tiotropium [place] Monohydrate)Indicatio ns:Severe persistent asthma without complication Inhale 2 Puffs by mouth in the morning. 12 g 2 02/07/2023 Active Montelukast Sodium 10 MG Oral Tablet (Singulair)Indication s:Asthma, severe persistent Take 1 Tablet by mouth in the morning. 90 Tablet 3 02/19/2023 Active predniSONE 10 MG Oral Tablet (Deltasone) 1-3 tabs daily as directed 90 Tablet 0 03/19/2023 Active Albuterol Sulfate HFA 108 (90 Base) MCG/ACT Inhalation Aerosol SolutionIndications:S evere persistent asthma without complication TAKE 2 PUFFS BY MOUTH EVERY 4 HOURS NEEDED FOR WHEEZE 8.5 g 5 03/23/2023 Active Cyclobenzaprine HCl 5 MG Oral Tablet (Flexeril)Indications :Weakness of both legs,Numbness and tingling of foot,Lumbar compression fracture (HCC) TAKE ONE TABLET BY MOUTH TWICE DAILY NEEDED FOR MUSCLE SPASM 30 Tablet 1 04/10/2023 Active hydroCHLOROthiazide 12.5 MG Oral Capsule (Hydrodiuril)Indicati ons:HTN, goal below 140/90 Take 3 Capsules by mouth in the morning. - on days of IVIG infusion. 60 Capsule 1 05/08/2023 Active Hospital, Clinic, or Other Facility Administered Medication Ordered Dose Route Frequency Start Date End Date Status Albuterol Sulfate (Proventil) (2.5 MG/3ML) 0.083% inhalation solution 2.5 mgIndications:Severe persistent asthma without complication 2.5 mg NEBULIZER PRN 09/20/2022 09/20/2023 Acti ve Albuterol Sulfate (Proventil) (5 MG/ML) 0.5% *conc* inhalation solution 2.5 mgIndications:Severe persistent asthma without complication 2.5 mg NEBULIZER PRN 09/20/2022 09/20/2023 Acti ve documented as of this encounter (statuses as of 05/22/2023) Active Problems Problem Noted Date Diagnosed Date [...] as of this encounter (statuses as of 05/22/2023) Resolved Problems Problem Noted Date Diagnosed Date Resolved Date Wedge compression fracture o f unspecified lumbar vertebra, initial encounter for closed fracture 09/06/2022 09/06/2022 Compression of lumbar vertebra 11/18/2020 01/20/2021 Asthma, moderate persistent 08/29/2011 10/16/2011 Asthma exacerbation 07/17/2011 05/13/20 12 documented as of this encounter (statuses as of 05/22/2023) Immunizations Name Administration Dates Next Due COVID-19 [...] Taken Comments Blood Pressure - - Pulse 92 05/22/2023 1:14 PM EST Temperature 36.9 C (98.4 F) 05/22/2023 1:14 PM ES T Respiratory Rate 16 05/22/2023 1:14 PM EST Oxygen Saturation 94% 05/22/2023 1:14 PM EST Inhaled Oxygen Concentration - - Weight - - Height - - Body Mass Index - - documented in this encounter Plan of Treatment Upcoming Encounters Date Type Department Care Team (Late st Contact Info) Description 06/04/2023 9:00 AM EST Hem/Onc Treatment Hematology/Oncology Treatment, [place] [facility] [address] [place], Chair 3 [facility] [address] [place] [address] [place] [address] 06/05/2023 9:30 AM EST Hem/Onc Treatment Hematology/Oncology Treatment, [place] 200 [facility], [place] [address] 06/06/2023 11:00 AM EST Hem/Onc Treatment Hematology/Oncology Treatment, [address] [address] [place], Chair 5 [facility] [address] [place] [address] [place] [address] 06/07/2023 9:00 AM EST Hem/Onc Treatment Hematology/Oncology Treatment, [place] 200 [facility], [place] [address] [place], Chair 3 [facility] [address] [place] [address] [place] [address] 06/22/2023 1:00 PM EST Nurse Only Pulmonary Medicine, [facility] 132 [facility] [place] [address] , Nurse Pulmonary [address] [place] [address] 07/24/2023 1:40 PM EST Office Visit Neurology [facility] [place] [address] [place] [address] John Dodge, [address] [place] [address] 10/19/2023 11:15 AM EDT Office Visit Otolaryngology [facility] [address] [place] [address] Martita Gaston MD [address] [place] [address] 11/14/2023 3:00 PM EDT Office Visit Family Medicine [address] [phone] Ruel Fajardo MD [address] [place] [address] [place] [address] 11/20/2023 1:30 PM EDT Office [facility] [place] [address] [place] [address] Adriel Montalvo MD [address] [place] [address] Scheduled Procedures Name Priority Associated Diagnoses Date/Ti [...] D LEVEL ONCE IN A LIFETIME-USE SMARTSET# [id number] Completed 11/18/2020 Influenza Vaccine (FLU shot) Completed [...] (Nucala) inj 100 mg 100 mg, Subcutaneous, [id number], First dose on Sun05/22/23 at 1445, Last dose on Sun03/25/24 at 1445, For 12 doses Given 05/22/2023 2:20 PM EST 100 mg Arm Left Upper documented in this encounter Care Teams Solar Sales Specialist Relationship Specialty Start Date End Date Ruel Fajardo MD [address] [place] [address] [place] [address] PCP - General Family Medicine 10/17/19 documented as of this encounter
--- OUTSIDE RECORDS SUMMARY | 2023-09-12 10:50 | External Medical Summary | Summary of Care ---
Author Name Unknown Organization [facility] Address [address] [facility] [place] [address] Phone [phone] Care Team Providers Care Account Officer Name Role Phone Ruel Fajardo MD Primary Care Provide r Reason for Visit * Reason Onset Date Comments Order Request 05/22/2023 Standing JHOANA ord ers-Nucala Encounter Details Date Type Department Care Team (Late st Contact Info) Description 05/22/2023 Telephone Pulmonary Medicine, [facility] [address] [facility] [place] [address] Charlie Velasquez MD [address] [facility] [place] [address] Order Request (Standing JHOANA orders-Nucala) Allergies Active Allergy Reactions Criticality Noted Date [...] (vitamin B-2)Indications:CIDP (chronic inflammatory demyelinating polyneuropathy) ([facility]) Take by mouth 4 [...] Respimat 2.5 MCG/ACT Inhalation Aerosol Solution (Tiotropium [place] Monohydrate)Indicatio ns:Severe persistent asthma without complication Inhale [...] 100 mgIndications:Eosinophi lic asthma 100 mg SC [id number] 05/22/2023 04/22/2024 Active documented as of this [...] Miscellaneous Notes * Telephone Encounter - Charlie Velasquez MD - 05/22/2023 2:01 PM EST Signed Thank you documented in this encounter Plan of Treatment Upcoming Encounters Date Type Department Care Team (Late st Contact Info) Description 06/04/2023 9:00 AM EST Hem/Onc Treatment Hematology/Oncology Treatment, [address] [place] [address] [place], Chair 3 Hem Onc Scenery [address] [place] [address] [place] [address] 06/05/2023 9:30 AM EST Hem/Onc Treatment Hematology/Oncology Treatment, [address] [place] [address] 06/06/2023 11:00 AM EST Hem/Onc Treatment Hematology/Oncology Treatment, [address], [place] [address] [place], Chair 5 Hem Onc Scenery [address] [place] [address] [place], [place] [address] 06/07/2023 9:00 AM EST Hem/Onc Treatment Hematology/Oncology Treatment, [address], [place] [address] [place], Chair 3 Hem Onc Scenery 200 [facility] [place], [place] [address] 06/22/2023 1:00 PM EST Nurse Only Pulmonary Medicine, [facility] [address] Gw, Nurse Pulmonary [facility] [address] 07/24/2023 1:40 PM EST Office Visit Neurology [facility] 200 [facility] [place] [address] John Dodge, [address] [facility] [place] [address] 10/19/2023 11:15 AM EDT Office Visit Otolaryngology [facility] [address] [facility] [place] [address] Martita Gaston MD 132 [place] [address] 11/14/2023 3:00 PM EDT Office Visit Family Medicine [address] [phone] Ruel Fajardo MD [address] [place] [address] [place] [address] 11/20/2023 1:30 PM EDT Office Visit Allergy/Immunology [facility] [address] [facility] [place] [address] Adriel Montalvo MD 200 [facility] [place] [address] Scheduled Procedures Name Priority Associated Diagnoses Date/Ti [...] D LEVEL ONCE IN A LIFETIME-USE SMARTSET# 50965 Completed 11/18/2020 Influenza Vaccine (FLU shot) Completed , 05/15/2022, 06/09/2021, Additional history exists GARDASIL-HPV IMMUNIZATION SERIES Aged Out No longer eligible based on patient's age to complete this topic MENINGOCOCCAL (MENACTRA/MENVEO) Aged Out No longer eligible based on patient's age to complete this topic documented as of this encounter Medical Devices Not on filedocumented as of this encounter Visit Diagnoses Diagnosis Eosinophilic asthma- Primary Pulmonary eosinophilia documented in this encounter Care Teams Account Officer Relationship Specialty Start Date End Date Ruel Fajardo MD [address] [place] [address] [place] [phone] PCP - General Family Medicine 10/17/19 documented as of this encounter
--- OUTSIDE RECORDS SUMMARY | 2023-09-12 10:50 | External Medical Summary | Summary of Care ---
Author Name Unknown Organization [facility] Address [address] [facility] [place] [address] Phone [phone] Care Team Providers Care Independent Sales Representative Name Role Phone Ruel Fajardo MD Primary Care Provide r Reason for Visit * Reason Comments IV Therapy Privigen. * Episode Based Medications (Routine) - Authorized Specialty Diagnoses / Procedures Referred By Contac t Referred To Contact Diagnoses CIDP (chronic inflammatory demyelinating polyneuropathy) ([facility]) Procedures DC INJ IVIG PRIVIGEN 500 MG John Dodge, DO [address] [place] [address] Anc Hem/Onc [facility] DEPT CLOSED - 05/08/[address] [place] [address] [id number] Referral ID Status Reason Start Date Expiration Date V isits Requested Visits Authorized [id number] Authorized 03/16/2023 03/16/2024 [id number] Encounter Details Date Type Department Care Team (Latest Contact Info) Description 06/06/2023 11:00 AM EST Hem/Onc Treatment Hematology/Oncolog y Treatment, [facility] [address] [place] [address] [place], Chair 5 Hem Onc Scenery [address] [place] [address] CIDP (chronic inflammatory demyelinating polyneuropathy) ([facility])* Allergies Active Allergy Reactions Criticality Noted Date Comments Amoxicillin Rash 07/17/2011 documented as of this encounter (statuses as of 06/06/2023) Medications Medication Sig Dispensed Refills Start Date [...] Capsule (Neurontin)Indication s:CIDP (chronic inflammatory demyelinating polyneuropathy) ([facility]) [...] Respimat 2.5 MCG/ACT Inhalation Aerosol Solution (Tiotropium [place] Monohydrate)Indicatio ns:Severe persistent asthma without complication Inhale [...] 100 mgIndications:Eosinophi lic asthma 100 mg SC [id number] 05/22/2023 04/22/2024 Active documented as of this encounter (statuses as of 06/06/2023) Active Problems Problem Noted Date Diagnosed Date [...] as of this encounter (statuses as of 06/06/2023) Resolved Problems Problem Noted Date Diagnosed Date Resolved Date Wedge compression fracture o f unspecified lumbar vertebra, initial encounter for closed fracture 09/06/2022 09/06/2022 Compression of lumbar vertebra 11/18/2020 01/20/2021 Asthma, moderate persistent 08/29/2011 10/16/2011 Asthma exacerbation 07/17/2011 05/13/20 12 documented as of this encounter (statuses as of 06/06/2023) Immunizations Name Administration Dates Next Due COVID-19 [...] Care Team (Late st Contact Info) Description 06/07/2023 9:00 AM EST Hem/Onc Treatment Hematology/Oncology [address], [address] [address] [place], Chair 3 Hem Onc Scenery [address] [place] [address] [place] [address] 06/22/2023 1:00 PM EST Nurse Only Pulmonary Medicine, [facility] 132 [place] [address] Gw, Nurse Pulmonary 132 [place] [address] 07/02/2023 11:00 AM EST Hem/Onc Treatment Hematology/Oncology Treatment, [address], [place] [address] [place], Chair 8 Hem Onc Scenery [address] [place] [address] [place] [address] 07/03/2023 11:00 AM EST Hem/Onc Treatment Hematology/Oncology Treatment, [address], [place] [address] [place], Chair 5 Hem Onc Scenery 200 [facility] [place] [address] 07/04/2023 11:00 AM EST Hem/Onc Treatment Hematology/Oncology Treatment, [address] [address] [place], Chair 3 Hem Onc Scenery [address] [place] [address] [place] [address] 07/05/2023 11:00 AM EST Hem/Onc Treatment Hematology/Oncology Treatment, [place] 200 [facility] [place] [address] [place], Chair 7 Hem Onc [facility] 200 [facility] [place] [address] 07/24/2023 1:40 PM EST Office Visit Neurology [facility] 200 [facility] [place] [address] John Dodge, DO 200 [facility] [place] [address] 10/19/2023 11:15 AM EDT Office Visit Otolaryngology [facility] [place] [address] Martita Gaston MD 132 [facility] [place] [address] 11/14/2023 3:00 PM EDT Office Visit Family Medicine [address] [phone] Ruel Fajardo MD [address] [place] [address] [place] [address] 11/20/2023 1:30 PM EDT Office Visit Allergy/Immunology [facility] [place] 200 [facility] [place] [address] Adriel Montalvo MD 200 [facility] [place] [address] Scheduled Procedures Name Priority Associated Diagnoses Date/Ti [...] D LEVEL ONCE IN A LIFETIME-USE SMARTSET# 92613 Completed 11/18/2020 Influenza Vaccine (FLU shot) Completed [...] ONCE PRN Other, Hypersensitivity Reaction, Starting on Sun06/06/23 at 1105, Until Allison 06/07/23 at 1104, For 24 hours EPINEPHrine 1 MG/ML inj 0.3 mg 0.3 mg, Intramuscular, ONCE PRN Other, Hypersensitivity Reaction or Anaphylaxis, Starting on Sun06/06/23 at 1105, Until Allison 06/07/23 at 1104, For 24 hours hEParin 100 UNIT/ML Lock Flush inj 500 Units 500 Units (5 mL), IV Lock, PRN Other, IV Flush, Starting on Sun06/06/23 at 1105, Until Allison 06/07/23 at 1104, For 24 hours, Do not flush if lock, PICC, or central line not in place; IV infusing or unable to flush. Given 06/06/2023 1:30 PM EST 500 Units Hydrocortisone Sod Suc (PF) (Solu-Cortef) inj 100 mg 100 mg, IV Push, ONCE PRN Other, Hypersensitivity Reaction, Starting on Sun06/06/23 at 1105, Until Allison 06/07/23 at 1104, For 24 hours NSS infusion 500 mL, Intravenous, at 50 mL/hr, CONTINUOUS, Starting on Sun06/06/23 at 1215, Until Sun06/06/23 at 2214 Start Infusion 06/06/2023 11:00 AM EST 500 mL 50 mL/hr sodium chloride 0.9 % flush central line 10 mL 10 mL, IV Push, PRN Other, IV Flush, Starting on Sun06/06/23 at 1105, Until Allison 06/07/23 at 1104, For 24 hours, Do not flush if lock, PICC, or central line not in place; IV infusing or unable to flush. Given 06/06/2023 1:30 PM EST 10 mL Given 06/06/2023 11:00 AM EST 10 mL Inactive Administered Medications [...] Given 06/06/2023 11:10 AM EST 25 mg Immune Globulin Human-IVIG [...] 11:35 AM EST 5 g 26 mL/hr documented in this encounter Care Teams Independent Sales Representative Relationship Specialty Start Date End Date Sellathurai, Thiviyanath, MD [address] [place] [address] [place] [address] PCP - General Family Medicine 10/17/19 documented as of this encounter
--- OUTSIDE RECORDS SUMMARY | 2023-09-12 10:50 | External Medical Summary | Summary of Care ---
Author Name Unknown Organization [facility] Address [address] [facility] [place] [address] Phone [phone] Care Team Providers Care Map And Chart Mounter Name Role Phone Ruel Fajardo MD Primary Care Provide r Reason for Visit * Reason Comments eRx-Medication Refill Encounter Details Date Type Department Care Team (Late st Contact Info) Description 05/24/2023 Refill Family Medicine [address] [place] [phone] Rodney Crawford MD [address] [place] [address] [place] [address] Weakness of both legs; Numbness and tingling of foot; Lumbar compression fracture (HCC) Allergies Active Allergy Reactions Criticality Noted Date Comments Amoxicillin Rash 07/17/2011 documented as of this encounter (statuses as of 05/24/2023) Medications Medication Sig Dispensed Refills Start Date [...] Respimat 2.5 MCG/ACT Inhalation Aerosol Solution (Tiotropium [place] Monohydrate)Indicat ions:Severe persistent asthma without complication Inhale [...] 03/23/2023 Active hydroCHLOROthiazide 12.5 MG Oral Capsule (Hydrodiuril)Indica tions:HTN, goal below 140/90 Take 3 Capsules by mouth in the morning. - on days of IVIG infusion. 60 Capsule 1 05/08/2023 Active Cyclobenzaprine HCl 5 MG Oral Tablet (Flexeril)Indicatio ns:Weakness of both legs,Numbness and tingling of foot,Lumbar compression fracture (HCC) TAKE ONE TABLET BY MOUTH TWICE DAILY NEEDED FOR MUSCLE SPASM 30 Tablet 1 04/10/2023 Discontinue d(Refill) Hospital, Clinic, or Other Facility [...] 100 mgIndications:Eosinophi lic asthma 100 mg SC [id number] 05/22/2023 04/22/2024 Active documented as of this encounter (statuses as of 05/24/2023) Active Problems Problem Noted Date Diagnosed Date [...] as of this encounter (statuses as of 05/24/2023) Resolved Problems Problem Noted Date Diagnosed Date Resolved Date Wedge compression fracture o f unspecified lumbar vertebra, initial encounter for closed fracture 09/06/2022 09/06/2022 Compression of lumbar vertebra 11/18/2020 01/20/2021 Asthma, moderate persistent 08/29/2011 10/16/2011 Asthma exacerbation 07/17/2011 05/13/20 12 documented as of this encounter (statuses as of 05/24/2023) Immunizations Name Administration Dates Next Due COVID-19 [...] encounter Miscellaneous Notes * Telephone Encounter - Loraine Andre RPh - 05/24/2023 1:44 PM ESTRefused Prescriptions: Disp Refills Cyclobenzaprine HCl 5 MG Oral Tablet (Flex*30 Tab*1 Sig: TAKE ONE TABLET BY MOUTH TWICE DAILY NEEDED FOR MUSCLE SPASMRefused By: LORAINE ANDRE for Refusal: Duplicate Request documented in this encounter Plan of Treatment Upcoming Encounters Date Type Department Care Team (Late st Contact Info) Description 06/04/2023 9:00 AM EST Hem/Onc Treatment Hematology/Oncology Treatment, [address] [place] [address] [place], Chair 3 Hem Onc [facility] [place] [address] 06/05/2023 9:30 AM EST Hem/Onc Treatment Hematology/Oncology Treatment, [address] [place] [address] 06/06/2023 11:00 AM EST Hem/Onc Treatment Hematology/Oncology Treatment, [address] [place] [address] [place], Chair 5 Hem Onc [facility] [address] [place] [address] 06/07/2023 9:00 AM EST Hem/Onc Treatment Hematology/Oncology Treatment, [place] [address] [facility] [address] [place] [address] [place], Chair 3 Hem Onc Scenery 200 [facility] [place] [address] 06/22/2023 1:00 PM EST Nurse Only Pulmonary Medicine, [facility] 132 [facility] [place] [address] Gw, Nurse Pulmonary 132 [facility] [place] [address] 07/24/2023 1:40 PM EST Office Visit Neurology [facility] 200 [facility] [place] [address] John Dodge, 200 [facility] [place] [address] 10/19/2023 11:15 AM EDT Office Visit Otolaryngology [facility] 132 [facility] [place] [address] Martita Gaston MD 132 [facility] [place] [address] 11/14/2023 3:00 PM EDT Office Visit Family Medicine [address] [place] [phone] Ruel Fajardo MD [address] [place] [address] [place] [address] 11/20/2023 1:30 PM EDT Office Visit Allergy/Immunology [facility] [address] [place] [address] Adriel Montalvo MD 200 [facility] [place] [address] Scheduled Procedures Name Priority Associated Diagnoses Date/Ti [...] D LEVEL ONCE IN A LIFETIME-USE SMARTSET# 86764 Completed 11/18/2020 Influenza Vaccine (FLU shot) Completed [...] injury documented in this encounter Care Teams Map And Chart Mounter Relationship Specialty Start Date End Date Ruel Fajardo MD [address] [place] [address] [place] [phone] PCP - General Family Medicine 10/17/19 documented as of this encounter
--- OUTSIDE RECORDS SUMMARY | 2023-09-12 10:50 | External Medical Summary | Summary of Care ---
Author Name Unknown Organization [facility] Address [address] [facility] [place] [address] Phone [phone] Care Team Providers Care Head Waiter Name Role Phone Ruel Fajardo MD Primary Care Provide r Encounter Details Date Type Department Care Team (Late st Contact Info) Description 05/30/2023 Orders Only Neurology [facility] [address] [place] [address] John Dodge, DO [address] [place] [address] Allergies Active Allergy Reactions Criticality Noted Date Comments Amoxicillin Rash 07/17/2011 documented as of this encounter (statuses as of 05/30/2023) Medications Medication Sig Dispensed Refills Start Date [...] (vitamin B-2)Indications:CIDP (chronic inflammatory demyelinating polyneuropathy) ([facility]) Take by mouth 4 Tablets [...] (Neurontin)Indication s:CIDP (chronic inflammatory demyelinating polyneuropathy) [facility] Respimat 2.5 MCG/ACT Inhalation Aerosol Solution (Tiotropium [place] Monohydrate)Indicatio ns:Severe persistent asthma without complication Inhale [...] 100 mgIndications:Eosinophi lic asthma 100 mg SC [id number] 05/22/2023 04/22/2024 Active documented as of this encounter (statuses as of 05/30/2023) Active Problems Problem Noted Date Diagnosed Date [...] as of this encounter (statuses as of 05/30/2023) Resolved Problems Problem Noted Date Diagnosed Date Resolved Date Wedge compression fracture o f unspecified lumbar vertebra, initial encounter for closed fracture 09/06/2022 09/06/2022 Compression of lumbar vertebra 11/18/2020 01/20/2021 Asthma, moderate persistent 08/29/2011 10/16/2011 Asthma exacerbation 07/17/2011 05/13/20 12 documented as of this encounter (statuses as of 05/30/2023) Immunizations Name Administration Dates Next Due COVID-19 [...] 9:00 AM EST Hem/Onc Treatment Hematology/Oncology Treatment, [place] [facility] [address] [place], Chair 3 Hem Onc Scenery 200 [facility] [place] [address] 06/05/2023 9:30 AM EST Hem/Onc Treatment Hematology/Oncology Treatment, [place] 200 [facility] [place] [address] 06/06/2023 11:00 AM EST Hem/Onc Treatment Hematology/Oncology Treatment, [place] [facility] [address] [place], Chair 5 Hem Onc [facility] [address] [place] [address] [place] [address] 06/07/2023 9:00 AM EST Hem/Onc Treatment Hematology/Oncology Treatment, [place] 200 [facility] [place] [address] [place], Chair 3 Hem Onc Scenery 200 [facility] [place] [address] 06/22/2023 1:00 PM EST Nurse Only Pulmonary Medicine, [facility] 132 [facility] [place] [address] Gw, Nurse Pulmonary 132 [facility] [place] [address] 07/24/2023 1:40 PM EST Office Visit Neurology [facility] [place] 200 [facility] [place] [address] John Dodge, DO 200 [facility] [place] [address] 10/19/2023 11:15 AM EDT Office Visit Otolaryngology [facility] [address] [place] [address] Martita Gaston MD [address] [place] [address] 11/14/2023 3:00 PM EDT Office Visit Family Medicine [address] [phone] Ruel Fajardo MD [address] [place] [address] [place] [address] 11/20/2023 1:30 PM EDT Office Visit Allergy/Immunology [facility] 200 [facility] [place] [address] Adriel Montalvo MD [address] [place] [address] Scheduled Procedures Name Priority Associated Diagnoses Date/Ti [...] DXA Scan 07/29/2021 07/29/2019 GFR 09/07/2023 09/06/2022, 0802/2022, 06/09/2021, Additional history exists Depression Screening 05/11/2024 05/11/2023 Albumin/Creatinine Ratio 09/06/2025 023, 02/20/2022, 08/07/2019 Diabetes Screening 09/06/2025 09/06/2022, 0 02/20/2022, 02/20/2022, Additional history exists Lipid Panel 09/07/2027 09/06/2022, 0802/2022, 08/07/2019, Additional history exists COLONOSCOPY-EVERY 5 YRS AGES 18-100 11/22/2027 11/21/2022, 11/21/2022, 04/03/2016, Additional history exists AAA Screening Completed 08/11/2019 VITAMIN D LEVEL ONCE IN A LIFETIME-USE SMARTSET# [id number] Completed 11/18/2020 Influenza Vaccine (FLU shot) Completed , 05/15/2022, 06/09/2021, Additional history exists GARDASIL-HPV IMMUNIZATION SERIES Aged Out No longer eligible based on patient's age to complete this topic MENINGOCOCCAL (MENACTRA/MENVEO) Aged Out No longer eligible based on patient's age to complete this topic documented as of this encounter Medical Devices Not on filedocumented as of this encounter Care Teams Head Waiter Relationship Specialty Start Date End Date Ruel Fajardo MD [address] [place] [address] [place] [address] PCP - General Family Medicine 10/17/19 documented as of this encounter
--- OUTSIDE RECORDS SUMMARY | 2023-09-12 10:50 | External Medical Summary | Summary of Care ---
Author Name Unknown Organization [facility] Address [address] [facility] [place] [address] Phone [phone] Care Team Providers Care Solar Pool Heating Installer Name Role Phone Blessing Fajardo MD Primary Care Provide r Reason for Visit * Reason Onset Date Comments Medication Refill 05/24/2023 Encounter Details Date Type Department Care Team (Late st Contact Info) Description 05/24/2023 Refill Family Medicine [address] [phone] Rodney Crawford MD [address] [place] [address] [place] [address] Weakness of both legs; Numbness and [...] (vitamin B-2)Indications:CONSUELO P (chronic inflammatory demyelinating polyneuropathy) ([facility]) Take by mouth 4 Tablets in [...] Capsule (Neurontin)Indicati ons:CIDP (chronic inflammatory demyelinating polyneuropathy) ([facility]) 3 tabs at bedtime 90 Capsule [...] Respimat 2.5 MCG/ACT Inhalation Aerosol Solution (Tiotropium [place] Monohydrate)Indicat ions:Severe persistent asthma without complication Inhale [...] MUSCLE SPASM 30 Tablet 1 05/24/2023 Active Cyclobenzaprine HCl 5 MG Oral Tablet [...] 100 mgIndications:Eosinophi lic asthma 100 mg SC [id number] 05/22/2023 04/22/2024 Active documented as of this [...] IV3, With Preserve, Inj 03/23/2014,06/23/2013 Seasonal Influenza, David william, Adjuvanted, 65+ yrs 06/03/2019 documented as of [...] Telephone Encounter - Blessing Fajardo MD - 05/24/2023 1:55 PM EST Signed Prescriptions: Disp Refills Cyclobenzaprine HCl 5 MG Oral Tablet (Flex*30 Tab*1 Sig: TAKE ONE TABLET BY MOUTH TWICE DAILY NEEDED FOR MUSCLE SPASM Authorizing Provider: BLESSING FAJARDO * Telephone Encounter - Ilda Mosher [facility] - 05/24/2023 1:50 PM ESTPending Prescriptions: Disp Refills Cyclobenzaprine HCl 5 MG Oral Tablet (Flex*30 Tab*1 Sig: TAKE ONE TABLET BY MOUTH TWICE DAILY NEEDED FOR MUSCLE SPASM * Telephone Encounter - Ilda Mosher [facility] - 05/24/2023 1:50 PM EST [facility] is currently not authorized to approve refills for the pended medication(s) per refill protocol. Please approve if appropriate. Did you pend patient's preferred pharmacy and medication before forwarding?yes [facility] [address] [place] Pending Prescriptions: Disp Refills [...] appointment Last date the medication was ordered: 04/10/23 Is this request for a controlled substance?No [...] PM HGBA1C 4.9 02/20/2022 12:35 PM Thank You, Ilda Mosher [facility] Pharmacist Telepharmacy [phone] 05/24/2023, 1:50 PM documented in this encounter Plan of Treatment Upcoming Encounters Date Type Department Care Team (Late st Contact Info) Description 06/04/2023 9:00 AM EST Hem/Onc Treatment Hematology/Oncology Treatment, [place] [address] [facility], [place] [address] [place], Chair 3 Hem Onc Scenery 200 [facility] [place] [address] 06/05/2023 9:30 AM EST Hem/Onc Treatment Hematology/Oncology Treatment, [place] [address] [facility], [place] [address] 06/06/2023 11:00 AM EST Hem/Onc Treatment Hematology/Oncology Treatment, [place] [address] [facility], [place] [address] dEen, Chair 5 Hem Onc Scenery 200 [facility] [place] [address] 06/07/2023 9:00 AM EST Hem/Onc Treatment Hematology/Oncology Treatment, [place] [address] [facility], [place] [address] [place], Chair 3 Hem Onc [facility] 200 [facility] [place] [address] 06/22/2023 1:00 PM EST Nurse Only Pulmonary Medicine, [facility] 132 [facility] [place] [address] Gw, Nurse Pulmonary 132 [facility] [place] [address] 07/24/2023 1:40 PM EST Office Visit Neurology [place] [address] [place] [address] John Dodge, 200 [facility] [place] [address] 10/19/2023 11:15 AM EDT Office Visit Otolaryngology [facility] 132 [place] [address] Martita Gaston MD 132 [place] [address] 11/14/2023 3:00 PM EDT Office Visit Family Medicine [address] [place] [phone] Blessing Fajardo MD [address] [place] [address] [place] [address] 11/20/2023 1:30 PM EDT Office Visit Allergy/Immunology [facility] [place] [address] [place] [address] Adriel Montalvo MD [address] [place] [address] Scheduled Procedures Name Priority Associated Diagnoses Date/Ti [...] D LEVEL ONCE IN A LIFETIME-USE SMARTSET# 19821 Completed 11/18/2020 Influenza Vaccine (FLU shot) Completed [...] injury documented in this encounter Care Teams Solar Pool Heating Installer Relationship Specialty Start Date End Date Blessing Fajardo MD [address] [place] [address] [place] [address] PCP - General Family Medicine 10/17/19 documented as of this encounter
--- OUTSIDE RECORDS SUMMARY | 2023-09-12 10:50 | External Medical Summary | Summary of Care ---
Author Name Unknown Organization [facility] Address [address] [facility] [place] [address] Phone [phone] Care Team Providers Care Marshmallow Machine Operator Name Role Phone Ruel Fajardo MD Primary Care Provide r Reason for Visit * Reason Onset Date Comments Medication Refill 05/24/2023 Encounter Details Date Type Department Care Team (Late st Contact Info) Description 05/24/2023 Refill Allergy/Immunology [place] [place] 200 [facility] [place] [address] Mihir Vidal MD 200 [facility] [place] [address] Allergies Active Allergy Reactions Criticality Noted Date [...] Respimat 2.5 MCG/ACT Inhalation Aerosol Solution (Tiotropium [place] Monohydrate)Indicat ions:Severe persistent asthma without complication Inhale [...] as directed 90 Tablet 0 05/24/2023 Active predniSONE 10 MG Oral Tablet (Deltasone) 1-3 tabs daily as directed 90 Tablet 0 03/19/2023 Discontinue d(Refill) Hospital, Clinic, or Other Facility [...] 100 mgIndications:Eosinophi lic asthma 100 mg SC [id number] 05/22/2023 04/22/2024 Active documented as of this [...] Telephone Encounter - Mihir Vidal MD - 05/24/2023 3:51 PM ESTSigned Prescriptions: Disp Refills predniSONE 10 MG Oral Tablet (Deltasone) 90 Tab*0 Si-3 tabs daily as directed Authorizing Provider: MIHIR VIDAL * Telephone Encounter - Liana Mccurdy LPN - 05/24/2023 3:14 PM EST Pending Prescriptions: Disp Refills predniSONE 10 MG Oral Tablet (Deltasone) 90 Tab*0 Si-3 tabs daily as directed * Telephone Encounter - Liana Mccurdy LPN - 05/24/2023 3:14 PM EST Pending Prescriptions: Disp Refills predniSONE 10 MG Oral Tablet (Deltasone) 90 Tab*0 Si-3 tabs daily as directed Last Visit: 11/14/2022 (in office), 06/07/2020 (telemedicine) Next Visit: 11/20/2023 Last date the medication was ordered: 03/19/23 Health Maintenance Topic Date Due DTaP,Tdap,and Td Vaccines (1 - Tdap) Never done Zoster Vaccines (1 of 2) Never done Pneumococcal Vaccine: 65+ Years (3 - PPSV23 or PCV20) 06/03/2020 Hepatitis B (2 of 2 - CpG 2-dose series) 11/01/2020 *BISPHONATE OR OTHER ACCEPTABLE MEDICATION NEEDED FOR OSTEOPOROSIS (REFER TO SMARTSET #7861) Never done COVID-19 Vaccine (3 - Moderna risk series) 07/08/2021 DXA Scan 07/29/2021 GFR 09/07/2023 Depression Screening 05/11/2024 Albumin/Creatinine Ratio 09/06/2025 Diabetes Screening 09/06/2025 Lipid Panel 09/07/2027 COLONOSCOPY-EVERY 5 YRS AGES 18-100 11/22/2027 VITAMIN D LEVEL ONCE IN A LIFETIME-USE SMARTSET# [id number] Completed Influenza Vaccine (FLU shot) Completed AAA [...] 9:00 AM EST Hem/Onc Treatment Hematology/Oncology Treatment, [address], [place] [address] [place], Chair 3 Hem Onc [address] [place], [place] [address] 06/05/2023 9:30 AM EST Hem/Onc Treatment Hematology/Oncology Treatment, [address], [place] [address] 06/06/2023 11:00 AM EST Hem/Onc Treatment Hematology/Oncology Treatment, [address], [place] [address] [place], Chair 5 Hem Onc [address] [place], [place] [address] 06/07/2023 9:00 AM EST Hem/Onc Treatment Hematology/Oncology Treatment, [address], [place] [address] [place], Chair 3 Hem Onc [address] [place], [place] [address] 06/22/2023 1:00 PM EST Nurse Only Pulmonary Medicine, [facility] 132 [facility] [place] [address] Gw, Nurse Pulmonary 132 [facility] [place] [address] 07/24/2023 1:40 PM EST Office Visit Neurology [facility] 200 [facility] [place] [address] John Dodge, [address] [place] [address] 10/19/2023 11:15 AM EDT Office Visit Otolaryngology [facility] 132 [facility] [place] [address] Martita Gaston MD 132 [facility] [place] [address] 11/14/2023 3:00 PM EDT Office Visit Family Medicine [address] [phone] Ruel Fajardo MD [address] [place] [address] [place] [address] 11/20/2023 1:30 PM EDT Office Visit Allergy/Immunology [facility] [address] [place] [address] Mihir Vidal MD [address] [place] [address] Scheduled Procedures Name Priority Associated Diagnoses Date/Ti [...] D LEVEL ONCE IN A LIFETIME-USE SMARTSET# 13260 Completed 11/18/2020 Influenza Vaccine (FLU shot) Completed , 05/15/2022, 06/09/2021, Additional history exists GARDASIL-HPV IMMUNIZATION SERIES Aged Out No longer eligible based on patient's age to complete this topic MENINGOCOCCAL (MENACTRA/MENVEO) Aged Out No longer eligible based on patient's age to complete this topic documented as of this encounter Medical Devices Not on filedocumented as of this encounter Care Teams Marshmallow Machine Operator Relationship Specialty Start Date End Date Ruel Fajardo MD [address] [place] [address] [place] [phone] PCP - General Family Medicine 10/17/19 documented as of this encounter
--- OUTSIDE RECORDS SUMMARY | 2023-09-12 10:51 | External Medical Summary | Summary of Care ---
Author Name Unknown Organization [facility] Address [address] [facility] [place] [address] Phone [phone] Care Team Providers Care Lye Treater Name Role Phone Ruel Fajardo MD Primary Care Provide r Reason for Visit * Reason Comments Treatment * Episode Based Medications (Routine) - Authorized Specialty Diagnoses / Procedures Referred By Contac t Referred To Contact Diagnoses CIDP (chronic inflammatory demyelinating polyneuropathy) ([facility]) Procedures NM INJ IVIG PRIVIGEN 500 MG John Dodge, DO [address] [place] [address] Anc Hem/Onc [place] DEPT CLOSED - 05/08/23 [address] [place] [phone] Referral ID Status Reason Start Date Expiration Date V isits Requested Visits Authorized [id number] Authorized 03/16/2023 03/16/2024 [id number] Encounter Details Date Type Department Care Team (Latest Contact Info) Description 05/08/2023 9:00 AM EST Hem/Onc Treatment Hematology/Oncolog y Treatment, [place] [address] [place] [address] [place], Chair 2 Hem Onc Scenery [address] [place] [phone] CIDP (chronic inflammatory demyelinating polyneuropathy) ([facility])* Allergies Active Allergy Reactions Criticality Noted Date Comments Amoxicillin Rash 07/17/2011 documented as of this encounter (statuses as of 05/08/2023) Medications Medication Sig Dispensed Refills Start Date [...] demyelinating polyneuropathy) ([facility]) Take by mouth 4 Tablets in [...] before bedtime. 30 mL 11 04/25/2022 Active Doxycycline Hyclate 100 MG Oral Capsule Take 1 Capsule (100 mg) by mouth in the morning and 1 Capsule (100 mg) before bedtime. 20 Capsule 0 05/15/2022 Active Additional Information Patient not taking.Reported on 02/21/2023 Gabapentin 100 MG Oral Capsule (Neurontin)Indicatio ns:CIDP (chronic inflammatory demyelinating polyneuropathy) ([facility]) 3 tabs at bedtime 90 Capsule 5 05/22/2022 Active Albuterol Sulfate (2.5 MG/3ML) 0.083% Inhalation Nebulization Solution (Proventil)Indicatio ns:Wheeze INHALE ONE VIAL VIA NEBULIZER EVERY 4 HOURS NEEDED FOR WHEEZING OR SHORTNESS OF BREATH 180 mL 1 10/14/2022 Active hydroCHLOROthiazide 12.5 MG Oral Capsule (Hydrodiuril)Indicat ions:HTN, goal below 140/90 Take 3 Capsules by mouth in the morning. - on days of IVIG infusion. 60 Capsule 1 10/30/2022 Active hydrALAZINE HCl 25 MG Oral Tablet [...] by mouth in the morning. 0 Active Turmeric 500 MG Oral Capsule Take 1 Capsule by mouth in the morning. 0 Active D3-1000 25 MCG (1000 UT) Oral Capsule (Cholecalciferol) Take 1 Capsule by mouth in the morning. 0 Active hydroCHLOROthiazide 25 MG Oral Tablet (Hydrodiuril)Indicat [...] 2.5 MCG/ACT Inhalation Aerosol Solution (Tiotropium [place] Monohydrate)Indicati ons:Severe persistent asthma without complication Inhale [...] Aerosol SolutionIndications: Severe persistent asthma without complication TAKE 2 PUFFS BY MOUTH EVERY 4 HOURS NEEDED FOR WHEEZE 8.5 g 5 03/23/2023 Active Cyclobenzaprine HCl 5 MG Oral Tablet (Flexeril)Indication s:Weakness of both legs,Numbness and tingling of foot,Lumbar compression fracture (HCC) TAKE ONE TABLET BY MOUTH TWICE DAILY NEEDED FOR MUSCLE SPASM 30 Tablet 1 04/10/2023 Active Hospital, Clinic, or Other Facility Administered [...] as of this encounter (statuses as of 05/08/2023) Active Problems Problem Noted Date Diagnosed Date [...] as of this encounter (statuses as of 05/08/2023) Resolved Problems Problem Noted Date Diagnosed Date Resolved Date Wedge compression fracture o f unspecified lumbar vertebra, initial encounter for closed fracture 09/06/2022 09/06/2022 Compression of lumbar vertebra 11/18/2020 01/20/2021 Asthma, moderate persistent 08/29/2011 10/16/2011 Asthma exacerbation 07/17/2011 05/13/20 12 documented as of this encounter (statuses as of 05/08/2023) Immunizations Name Administration Dates Next Due COVID-19 [...] at present time04/22/20 PHQ-2 Answer Date Recorded PHQ-2 Score 0 08/07/2019 Hunger Vital Sign Answer Date Recorded Worried [...] Sign Reading Time Taken Comments Blood Pressure 125/64 05/08/2023 9:06 AM EST Pulse 66 05/08/2023 9:06 AM EST Temperature 36.5 C (97.7 F) 05/08/2023 9:06 AM ES T Respiratory Rate 18 05/08/2023 9:06 AM EST Oxygen Saturation - - Inhaled Oxygen Concentration - - Weight - - Height - - Body Mass Index - - documented in this encounter Plan of Treatment Upcoming Encounters Date Type Department Care Team (Late st Contact Info) Description 05/09/2023 1:00 PM EST Hem/Onc Treatment Hematology/Oncology Treatment, [place] [address] [place] [address] [place], Chair 8 Hem Onc Scenery [address] [place] [phone] 05/10/2023 9:00 AM EST Hem/Onc Treatment Hematology/Oncology Treatment, [place] 200 [facility], [place] [address] [place], Chair 3 Hem Onc Scenery 200 [facility] [place] [address] 05/11/2023 3:00 PM EST Office Visit Family Medicine [address] [place] [phone] Ruel Fajardo MD [address] [place] [address] [place] [address] 05/22/2023 1:00 PM EST Nurse Only Pulmonary Medicine, Health system 132 [facility] [place] [address] Gw, Nurse Pulmonary 132 [facility] [place] [address] 06/04/2023 9:00 AM EST Hem/Onc Treatment Hematology/Oncology Treatment, [address], [place] [address] [place], Chair 3 Hem Onc Scenery [address] [place] [address] [place] [address] 06/05/2023 9:30 AM EST Hem/Onc Treatment Hematology/Oncology Treatment, [address], [place] [address] 06/06/2023 9:00 AM EST Hem/Onc Treatment Hematology/Oncology Treatment, [address], [place] [address] [place], Chair 6 Hem Onc Scenery 200 [facility] [place] [address] 06/07/2023 9:00 AM EST Hem/Onc Treatment Hematology/Oncology Treatment, [address], [place] [address] [place], Chair 3 Hem Onc Scenery 200 [facility] [place] [address] 07/24/2023 1:40 PM EST Office Visit Neurology [facility] 200 [facility] [place] [address] John Dodge DO 200 [facility] [place] [address] 10/19/2023 11:15 AM EDT Office Visit Otolaryngology [facility] [address] [place] [address] Martita Gaston MD [address] [place] [address] 11/20/2023 1:30 PM EDT Office Visit Allergy/Immunology [facility] [address] [place] [address] Adriel Montalvo MD 200 [facility] [place] [address] Scheduled Procedures Name Priority Associated Diagnoses Date/Ti me COLONOSCOPY FLEXIBLE PROXIMA L DIAGNOSTIC Recall History of colonic polyps Health Maintenance Due Date Last Done Comments DTaP,Tdap,and Td Vaccines (1 - Tdap) 1974 Zoster Vaccines (1 of 2) 1974 Pneumococcal Vaccine: 65+ Years (3 - PPSV23 or PCV20) 06/03/2020 06/03/2019, 03/18/2012 Depression Screening 08/07/2020 08/07/2019 Hepatitis B (2 of 2 - CpG 2-dose series) 11/01/2020 10/04/2020, 10/04/2020 *BISPHONATE OR OTHER ACCEPTABLE MEDICATION NEEDED FOR OSTEOPOROSIS (REFER TO SMARTSET #1146) 11/22/2020 COVID-19 Vaccine (3 - Moderna risk series) 07/08/2021 06/10/2021, 06/10/2021, 11/01/2020, Additional history exists DXA Scan 07/29/2021 07/29/2019 GFR 09/07/2023 09/06/2022, 0802/2022, 06/09/2021, Additional history exists Albumin/Creatinine Ratio 09/06/2025 023, 02/20/2022, 08/07/2019 Diabetes Screening 09/06/2025 09/06/2022, 0 02/20/2022, 02/20/2022, Additional history exists Lipid Panel 09/07/2027 09/06/2022, 0802/2022, 08/07/2019, Additional history exists COLONOSCOPY-EVERY 5 YRS AGES 18-100 11/22/2027 11/21/2022, 11/21/2022, 04/03/2016, Additional history exists AAA Screening Completed 08/11/2019 VITAMIN D LEVEL ONCE IN A LIFETIME-USE SMARTSET# 84742 Completed 11/18/2020 Influenza Vaccine (FLU shot) Completed [...] ONCE PRN Other, Hypersensitivity Reaction, Starting on Sun05/08/23 at 0913, Until Sun05/09/23 at 09, For 24 hours EPINEPHrine 1 MG/ML inj 0.3 mg 0.3 mg, Intramuscular, ONCE PRN Other, Hypersensitivity Reaction or Anaphylaxis, Starting on Sun05/08/23 at 0913, Until Sun05/09/23 at 0912, For 24 hours Hydrocortisone Sod Suc (PF) (Solu-Cortef) inj 100 mg 100 mg, IV Push, ONCE PRN Other, Hypersensitivity Reaction, Starting on Sun05/08/23 at 0913, Until Sun05/09/23 at 0912, For 24 hours NSS infusion 500 mL, Intravenous, at 50 mL/hr, CONTINUOUS, Starting on Sun05/08/23 at 1015, Until Sun05/08/23 at 2013 Start Infusion 05/08/2023 9:20 AM EST 500 mL 50 mL/hr Inactive Administered Medications - up to 3 most recent administrations Medication Order MAR Action Action Date Dose Rate Site Acetaminophen (Tylenol) tab 650 mg 650 mg, Oral, ONCE, On Sun05/08/23 at 1015, For 1 dose, Maximum of 4 grams (4000 mg) per day. Given 05/08/2023 9:14 AM EST 650 mg diphenhydrAMINE (Benadryl) cap 25 mg 25 mg, Oral, ONCE, On Sun05/08/23 at 1015, For 1 dose Given 05/08/2023 9:14 AM EST 25 mg Immune Globulin Human-IVIG 10% (Privigen) IV 40 g 40 g, IV Piggyback, ONCE, 1 dose, On Sun05/08/23 at 1045, Total dose = 45 gm [...] Infusion duration = 1.8 hours Start Infusion 05/08/2023 10:27 AM EST 40 g 106 mL/hr Immune Globulin Human-IVIG 10% (Privigen) IV 5 g 5 g, IV Piggyback, ONCE, 1 dose, On Sun05/08/23 at 1015, Total dose = 45 gm [...] Infusion duration = 1.8 hours Rate Change 05/08/2023 10:22 AM EST 106 mL/hr Rate Change 05/08/2023 10:06 AM EST 53 mL/hr Start Infusion 05/08/2023 9:43 AM EST 5 g 26 mL/hr documented in this encounter Care Teams Lye Treater Relationship Specialty Start Date End Date Ruel Fajardo MD [address] [place] [address] [place] [id number] PCP - General Family Medicine 10/17/19 documented as of this encounter
--- OUTSIDE RECORDS SUMMARY | 2023-09-12 10:51 | External Medical Summary | Summary of Care ---
Author Name Unknown Organization [facility] Address [address] [facility] [place] [address] Phone [phone] Care Team Providers Care Embroiderer Hand Name Role Phone Ruel Fajardo MD Primary Care Provide r Reason for Visit * Reason Comments IV Therapy Privigen 3/4 * Episode Based Medications (Routine) - Authorized Specialty Diagnoses / Procedures Referred By Contac t Referred To Contact Diagnoses CIDP (chronic inflammatory demyelinating polyneuropathy) (FORMERLY [facility]) Procedures MS INJ IVIG PRIVIGEN 500 MG John Dodge, DO [address] [place] [address] Anc Hem/Onc Joesph Harmon DEPT CLOSED - 05/08/23 [address] [place] [phone] Referral ID Status Reason Start Date Expiration Date V isits Requested Visits Authorized [id number] Authorized 03/16/2023 03/16/2024 [id number] Encounter Details Date Type Department Care Team (Latest Contact Info) Description 05/09/2023 1:00 PM EST Hem/Onc Treatment Hematology/Oncolog y Treatment, [facility] [address] [place] [address] [place], Chair 8 Hem Onc Scenery [address] [place] [id number] CIDP (chronic inflammatory demyelinating polyneuropathy) (FORMERLY [facility])* Allergies Active Allergy Reactions Criticality Noted Date Comments Amoxicillin Rash 07/17/2011 documented as of this encounter (statuses as of 05/09/2023) Medications Medication Sig Dispensed Refills Start Date [...] demyelinating polyneuropathy) (FORMERLY [facility]) Take by mouth 4 Tablets in the [...] (Neurontin)Indicatio ns:CIDP (chronic inflammatory demyelinating polyneuropathy) (FORMERLY [facility]) 3 tabs at bedtime 90 Capsule 5 [...] 2.5 MCG/ACT Inhalation Aerosol Solution (Tiotropium [place] Monohydrate)Indicati ons:Severe persistent asthma without complication Inhale [...] 04/10/2023 Active hydroCHLOROthiazide 12.5 MG Oral Capsule (Hydrodiuril)Indicat [...] as of this encounter (statuses as of 05/09/2023) Active Problems Problem Noted Date Diagnosed Date [...] as of this encounter (statuses as of 05/09/2023) Resolved Problems Problem Noted Date Diagnosed Date Resolved Date Wedge compression fracture o f unspecified lumbar vertebra, initial encounter for closed fracture 09/06/2022 09/06/2022 Compression of lumbar vertebra 11/18/2020 01/20/2021 Asthma, moderate persistent 08/29/2011 10/16/2011 Asthma exacerbation 07/17/2011 05/13/20 12 documented as of this encounter (statuses as of 05/09/2023) Immunizations Name Administration Dates Next Due COVID-19 [...] Sign Reading Time Taken Comments Blood Pressure 130/85 05/09/2023 12:48 PM EST Pulse 79 05/09/2023 12:48 PM EST Temperature 36.8 C (98.3 F) 05/09/2023 12:[address] Respiratory Rate 18 05/09/2023 12:48 PM EST Oxygen Saturation 94% 05/09/2023 12:48 PM EST Inhaled Oxygen Concentration - - Weight - - Height - - Body Mass Index - - documented in this encounter Nursing Notes * Linsey Haq RN - 05/09/2023 3:23 PM EST Goals: Patient will remain free from injury. Possible barriers to meeting goals: ambulation with IV pole, use of cane, history of falls Stability of the patient: Moderately unstable - medium risk of patient condition declining or worsening Summary regarding today's goals: Met: Pt remained free of injury during treatment today. Patient tolerated treatment well and was discharged in stable condition. Coverage by Trace Ty RN. * Linsey Haq RN - 05/09/2023 2:55 PM EST Chair 8 Pt a rrives for Day 3 Privigen. He states he's doing well, denies any acute complaints. Ambulating with a cane. IV site remains intact from treatment yesterday. Safety and Risk for Injury Patient will remain free from injury. Ensure appropriate safety devices are available. Provide and maintain safe environment. documented in this encounter Plan of Treatment Upcoming Encounters Date Type Department Care Team (Late st Contact Info) Description 05/10/2023 9:00 AM EST Hem/Onc Treatment Hematology/[address] [address] [place], Chair 3 [address] [address] 05/11/2023 3:00 PM EST Office Visit Family Medicine [address] [phone] Ruel Fajardo MD [address] [place] [address] [place] [address] 05/22/2023 1:00 PM EST Nurse Only Pulmonary Medicine, [facility] [address] [facility] [place] [address] Gw, Nurse Pulmonary [address] [facility] [place] [address] 06/04/2023 9:00 AM EST Hem/Onc Treatment Hematology/Oncology [address], [address] [address] [place], Chair 3 Hem Onc Scenery [address] [facility] [place], [place] [address] 06/05/2023 9:30 AM EST Hem/Onc Treatment Hematology/Oncology Treatment, [place] [address] [facility], [place] [address] 06/06/2023 11:00 AM EST Hem/Onc Treatment Hematology/Oncology Treatment, [place] [address] [facility], [place] [address] [place], Chair 5 Hem Onc Scenery [address] [facility] [place], [place] [address] 06/07/2023 9:00 AM EST Hem/Onc Treatment Hematology/Oncology Treatment, [address], [place] [address] [place], Chair 3 Hem Onc Scenery 200 [place] [address] 07/24/2023 1:40 PM EST Office Visit Neurology [facility] [place] [address] [facility] [place] [address] John Dodge, [address] [facility] [place], [place] [address] 10/19/2023 11:15 AM EDT Office Visit Otolaryngology [facility] [address] [facility] [place] [address] Martita Gaston MD [address] [facility] [place] [address] 11/20/2023 1:30 PM EDT Office Visit Allergy/Immunology [facility] [address] [facility] [place], [place] [address] Adriel Montalvo MD [address] [facility] [place] [address] Scheduled Procedures Name Priority Associated Diagnoses Date/Ti [...] 09/07/2023 09/06/2022, 01/24, 06/09/2021, Additional history exists Albumin/Creatinine Ratio 09/06/2025 023, 02/20/2022, 08/07/2019 Diabetes Screening 09/06/2025 09/06/2022, 0 02/20/2022, 02/20/2022, Additional history exists Lipid Panel 09/07/2027 09/06/2022, 01/24, 08/07/2019, Additional history exists COLONOSCOPY-EVERY 5 YRS AGES 18-100 11/22/2027 11/21/2022, 11/21/2022, 04/03/2016, Additional history exists AAA Screening Completed 08/11/2019 VITAMIN D LEVEL ONCE IN A LIFETIME-USE SMARTSET# [id number] Completed 11/18/2020 Influenza Vaccine (FLU shot) Completed [...] Diagnosis CIDP (chronic inflammatory demyelinating polyneuropathy) (FORMERLY [facility])- Primary Chronic inflammatory demyelinating polyneuritis documented in this encounter Administered Medications Active Administered Medications - up to 3 most recent administrations Medication Order MAR Action Action Date Dose Rate Site diphenhydrAMINE (Benadryl) inj 50 mg 50 mg, IV Push, ONCE PRN Other, Hypersensitivity Reaction, Starting on Sun05/09/23 at 1255, Until Sun05/10/23 at 1254, For 24 hours EPINEPHrine 1 MG/ML inj 0.3 mg 0.3 mg, Intramuscular, ONCE PRN Other, Hypersensitivity Reaction or Anaphylaxis, Starting on Sun05/09/23 at 1255, Until Sun05/10/23 at 1254, For 24 hours hEParin 100 UNIT/ML Lock Flush inj 500 Units 500 Units (5 mL), IV Lock, PRN Other, IV Flush, Starting on Sun05/09/23 at 1255, Until Sun05/10/23 at 1254, For 24 hours, Do not flush if lock, PICC, or central line not in place; IV infusing or unable to flush. Hydrocortisone Sod Suc (PF) (Solu-Cortef) inj 100 mg 100 mg, IV Push, ONCE PRN Other, Hypersensitivity Reaction, Starting on Sun05/09/23 at 1255, Until Allison 05/10/23 at 1254, For 24 hours NSS infusion 500 mL, Intravenous, at 50 mL/hr, CONTINUOUS, Starting on Sun05/09/23 at 1400, Until Sun05/09/23 at 2359 Start Infusion 05/09/2023 12:58 PM EST 500 mL 50 mL/hr sodium chloride 0.9 % flush central line 10 mL 10 mL, IV Push, PRN Other, IV Flush, Starting on Sun05/09/23 at 1255, Until Allison 05/10/23 at 1254, For 24 hours, Do not flush if lock, PICC, or central line not in place; IV infusing or unable to flush. Inactive Administered Medications - up to 3 most recent administrations Medication Order MAR Action Action Date Dose Rate Site Acetaminophen (Tylenol) tab 650 mg 650 mg, Oral, ONCE, On Sun05/09/23 at 1400, For 1 dose, Maximum of 4 grams (4000 mg) per day. Given 05/09/2023 12:58 PM EST 650 mg diphenhydrAMINE (Benadryl) cap 25 mg 25 mg, Oral, ONCE, On Sun05/09/23 at 1400, For 1 dose Given 05/09/2023 12:58 PM EST 25 mg Immune Globulin Human-IVIG 10% (Privigen) IV 40 g 40 g, IV Piggyback, ONCE, 1 dose, On Sun05/09/23 at 1430, Total dose = 45 gm Dispensed as [...] Infusion duration = 1.8 hours Rate Change 05/09/2023 2:20 PM EST 423 mL/hr Start Infusion 05/09/2023 2:02 PM EST 40 g 212 mL/hr Immune Globulin Human-IVIG 10% (Privigen) IV 5 g 5 g, IV Piggyback, ONCE, 1 dose, On Sun05/09/23 at 1400, Total dose = 45 gm Dispensed as [...] Infusion duration = 1.8 hours Rate Change 05/09/2023 2:00 PM EST 212 mL/hr Rate Change 05/09/2023 1:45 PM EST 106 mL/hr Rate Change 05/09/2023 1:27 PM EST 53 mL/hr documented in this encounter Care Teams Embroiderer Hand Relationship Specialty Start Date End Date Ruel Fajardo MD [address] [place] [address] [place] [address] PCP - General Family Medicine 10/17/19 documented as of this encounter
--- OUTSIDE RECORDS SUMMARY | 2023-09-12 10:51 | External Medical Summary | Summary of Care ---
Author Name Unknown Organization [facility] Address [address] [facility] [place] [address] Phone [phone] Care Team Providers Care Mold Car Pusher Name Role Phone Ruel Fajardo MD Primary Care Provide r Reason for Visit * Reason Comments IV Therapy Privigen 09/26 * Episode Based Medications (Routine) - Authorized Specialty Diagnoses / Procedures Referred By Contac t Referred To Contact Diagnoses CIDP (chronic inflammatory demyelinating polyneuropathy) (FORMERLY [facility]) Procedures OR INJ IVIG PRIVIGEN 500 MG John Dodge, DO [address] [place] [address] Anc Hem/Onc Joesph Harmon DEPT CLOSED - 05/08/23 [address] [place] [phone] Referral ID Status Reason Start Date Expiration Date V isits Requested Visits Authorized [id number] Authorized 03/16/2023 03/16/2024 [id number] Encounter Details Date Type Department Care Team (Latest Contact Info) Description 05/10/2023 9:00 AM EST Hem/Onc Treatment Hematology/Oncolog y Treatment, [facility] [address] [place] [address] [place], Chair 3 Hem Onc Scenery [address] [place] [phone] CIDP (chronic inflammatory demyelinating polyneuropathy) (FORM[facility]LY [facility])* Allergies Active Allergy Reactions Criticality Noted Date Comments Amoxicillin Rash 07/17/2011 documented as of this encounter (statuses as of 05/10/2023) Medications Medication Sig Dispensed Refills Start Date [...] (Neurontin)Indicatio ns:CIDP (chronic inflammatory demyelinating polyneuropathy) [facility] Respimat 2.5 MCG/ACT Inhalation Aerosol Solution (Tiotropium [place] Monohydrate)Indicati ons:Severe persistent asthma without complication Inhale [...] as of this encounter (statuses as of 05/10/2023) Active Problems Problem Noted Date Diagnosed Date [...] as of this encounter (statuses as of 05/10/2023) Resolved Problems Problem Noted Date Diagnosed Date Resolved Date Wedge compression fracture o f unspecified lumbar vertebra, initial encounter for closed fracture 09/06/2022 09/06/2022 Compression of lumbar vertebra 11/18/2020 01/20/2021 Asthma, moderate persistent 08/29/2011 10/16/2011 Asthma exacerbation 07/17/2011 05/13/20 12 documented as of this encounter (statuses as of 05/10/2023) Immunizations Name Administration Dates Next Due COVID-19 [...] Sign Reading Time Taken Comments Blood Pressure 135/83 05/10/2023 8:50 AM EST Pulse 85 05/10/2023 8:50 AM EST Temperature 36.4 C (97.5 F) 05/10/2023 8:50 AM ES T Respiratory Rate 16 05/10/2023 8:50 AM EST Oxygen Saturation 92% 05/10/2023 8:50 AM EST Inhaled Oxygen Concentration - - Weight 106.9 kg (235 lb 9.6 oz) 05/10/2023 8:50 AM EST Height - - Body Mass Index 32.86 03/12/2023 1:01 PM EDT documented in this encounter Nursing Notes * Linsey Haq RN - 05/10/2023 12:44 PM EST Goals: Patient will remain free from injury. Possible barriers to meeting goals: ambulation with IV pole, use of cane, benadryl Stability of the patient: Moderately unstable - medium risk of patient condition declining or worsening Summary regarding today's goals: Met: Pt remained free of injury today. Patient tolerated treatment well and was discharged in stable condition. No coverage needed today. * Linsey Haq RN - 05/10/2023 8:57 AM EST Chair 8 Pt arrives for day 4 privigen. He denies any issues over night. IV started in the right forearm by Satish Garcia LPN without difficulty, good blood return noted, flushed with NSS, fluids infusing. Safety and Risk for Injury Patient will remain free from injury. Ensure appropriate safety devices are available. Provide and maintain safe environment. documented in this encounter Plan of Treatment Upcoming Encounters Date Type Department Care Team (Late st Contact Info) Description 05/11/2023 3:00 PM EST Office Visit Family Medicine [address] [phone] Ruel Fajardo MD [address] [place] [address] [place] [address] 05/22/2023 1:00 PM EST Nurse Only Pulmonary Medicine, [facility] [address] [facility] [place] [address] [place], Nurse Pulmonary [address] [facility] [place] [address] 06/04/2023 9:00 AM EST Hem/Onc Treatment Hematology/Oncology Treatment, [place] [address] [facility] [place] [address] [place] Chair 3 Hem Onc Scenery [address] [place] [address] 06/05/2023 9:30 AM EST Hem/Onc Treatment Hematology/Oncology Treatment, [place] 200 [facility], [place] [address] 06/06/2023 11:00 AM EST Hem/Onc Treatment Hematology/Oncology Treatment, [place] [address] [place] [address] [place], Chair 5 Hem Onc [address] [place] [address] 06/07/2023 9:00 AM EST Hem/Onc Treatment Hematology/Oncology Treatment, [place] [address] [place] [address] [place], Chair 3 Hem Onc [address] [place] [address] 07/24/2023 1:40 PM EST Office Visit Neurology [facility] [place] [address] [facility] [place] [address] John Dodge DO [address] [facility] [place] [address] 10/19/2023 11:15 AM EDT Office Visit Otolaryngology [facility] [address] [facility] [place] [address] Martita Gaston MD [address] [facility] [place] [address] 11/20/2023 1:30 PM EDT Office Visit Allergy/Immunology [facility] [place] [address] [facility] [place] [address] Adriel Montalvo MD [address] [facility] [place] [address] Scheduled Procedures Name Priority Associated Diagnoses Date/Ti [...] D LEVEL ONCE IN A LIFETIME-USE SMARTSET# [id number] Completed 11/18/2020 Influenza Vaccine (FLU shot) Completed [...] PRN Other, Hypersensitivity Reaction, Starting on Allison 05/10/23 at 0852, Until Sun05/11/23 at 0851, For 24 hours EPINEPHrine 1 MG/ML inj 0.3 mg 0.3 mg, Intramuscular, ONCE PRN Other, Hypersensitivity Reaction or Anaphylaxis, Starting on [place] 05/10/23 at 0852, Until Sun05/11/23 at 0851, For 24 hours hEParin 100 UNIT/ML Lock Flush inj 500 Units 500 Units (5 mL), IV Lock, PRN Other, IV Flush, Starting on [place] 05/10/23 at 0852, Until Sun05/11/23 at 0851, For 24 hours, Do not flush if lock, PICC, or central line not in place; IV infusing or unable to flush. Hydrocortisone Sod Suc (PF) (Solu-Cortef) inj 100 mg 100 mg, IV Push, ONCE PRN Other, Hypersensitivity Reaction, Starting on [place] 05/10/23 at 0852, Until Sun05/11/23 at 0851, For 24 hours NSS infusion 500 mL, Intravenous, at 50 mL/hr, CONTINUOUS, Starting on Allison 05/10/23 at 1000, Until Allison 05/10/23 at 1959 Start Infusion 05/10/2023 8:54 AM EST 500 mL 50 mL/hr sodium chloride 0.9 % flush central line 10 mL 10 mL, IV Push, PRN Other, IV Flush, Starting on Allison 05/10/23 at 0852, Until Sun05/11/23 at 0851, For 24 hours, Do not flush if lock, PICC, or central line not in place; IV infusing or unable to flush. Inactive Administered Medications - up to 3 most recent administrations Medication Order MAR Action Action Date Dose Rate Site Acetaminophen (Tylenol) tab 650 mg 650 mg, Oral, ONCE, On Allison 05/10/23 at 1000, For 1 dose, Maximum of 4 grams (4000 mg) per day. Given 05/10/2023 8:54 AM EST 650 mg diphenhydrAMINE (Benadryl) cap 25 mg 25 mg, Oral, ONCE, On [place] 05/10/23 at 1000, For 1 dose Given 05/10/2023 8:54 AM EST 25 mg Immune Globulin Human-IVIG 10% (Privigen) IV 40 g 40 g, IV Piggyback, ONCE, 1 dose, On Allison 05/10/23 at 1030, Total dose = 45 gm [...] Infusion duration = 1.8 hours Rate Change 05/10/2023 10:15 AM EST 423 mL/hr Start Infusion 05/10/2023 9:50 AM EST 40 g 212 mL/hr Immune Globulin Human-IVIG 10% (Privigen) IV 5 g 5 g, IV Piggyback, ONCE, 1 dose, On Allison 05/10/23 at 1000, Total dose = 45 gm Dispensed as [...] Infusion duration = 1.8 hours Rate Change 05/10/2023 9:35 AM EST 106 mL/hr Rate Change 05/10/2023 9:20 AM EST 53 mL/hr Start Infusion 05/10/2023 9:05 AM EST 5 g 26 mL/hr documented in this encounter Care Teams Mold Car Pusher Relationship Specialty Start Date End Date Ruel Fajardo MD [address] [place] [address] [place] [phone] PCP - General Family Medicine 10/17/19 documented as of this encounter
--- OUTSIDE RECORDS SUMMARY | 2023-09-12 10:51 | External Medical Summary | Summary of Care ---
Author Name Unknown Organization [facility] Address [address] [facility] [place] [address] Phone [phone] Care Team Providers Care Clinic Office Manager Name Role Phone Ruel Fajardo MD Primary Care Provide r Reason for Visit * Reason Comments Re-Check Encounter Details Date Type Department Care Team (Late st Contact Info) Description 05/11/2023 3:00 PM EST Office Visit Family Medicine [address] [place] [phone] Ruel Fajardo MD [address] [place] [address] [place] [address] Severe persistent asthma without complication*; Need for xlomrwojan-nvnrziu-km rtussis (Tdap) vaccine; Need for shingles vaccine; HTN, goal below 140/90; Mild aortic valve stenosis Allergies Active Allergy Reactions Criticality Noted Date Comments Amoxicillin Rash 07/17/2011 documented as of this encounter (statuses as of 05/11/2023) Medications Medication Sig Dispensed Refills Start Date [...] (vitamin B-2)Indications:CONSUELO P (chronic inflammatory demyelinating polyneuropathy) ([facility] [...] Capsule (Neurontin)Indicati ons:CIDP (chronic inflammatory demyelinating polyneuropathy) ([facility] [...] Respimat 2.5 MCG/ACT Inhalation Aerosol Solution (Tiotropium [place]ard Monohydrate)Indicat ions:Severe persistent asthma without complication Inhale [...] 04/10/2023 Active hydroCHLOROthiazide 12.5 MG Oral Capsule (Hydrodiuril)Indica tions:HTN, goal below 140/90 Take 3 Capsules by mouth in the morning. - on days of IVIG infusion. 60 Capsule 1 05/08/2023 Active Doxycycline Hyclate 100 MG Oral Capsule Take 1 Capsule (100 mg) by mouth in the morning and 1 Capsule (100 mg) before bedtime. 20 Capsule 0 05/15/2022 3 Discontinue d(Patient preference/ discontinua tion) Turmeric 500 MG Oral Capsule Take 1 Capsule by mouth in the morning. 0 3 Discontinue d(Patient preference/ discontinua tion) Hospital, Clinic, or Other Facility Administered Medication [...] as of this encounter (statuses as of 05/11/2023) Active Problems Problem Noted Date Diagnosed Date [...] as of this encounter (statuses as of 05/11/2023) Resolved Problems Problem Noted Date Diagnosed Date Resolved Date Wedge compression fracture o f unspecified lumbar vertebra, initial encounter for closed fracture 09/06/2022 09/06/2022 Compression of lumbar vertebra 11/18/2020 01/20/2021 Asthma, moderate persistent 08/29/2011 10/16/2011 Asthma exacerbation 07/17/2011 05/13/20 12 documented as of this encounter (statuses as of 05/11/2023) Immunizations Name Administration Dates Next Due COVID-19 [...] Sign Reading Time Taken Comments Blood Pressure 124/88 05/11/2023 2:51 PM EST Pulse 81 05/11/2023 2:51 PM EST Temperature 36.4 C (97.5 F) 05/11/2023 2:51 PM ES T Respiratory Rate - - Oxygen Saturation 97% 05/11/2023 2:51 PM EST Inhaled Oxygen Concentration - - Weight 104.1 kg (229 lb 9.6 oz) 05/11/2023 2:51 PM EST Height - - Body Mass Index 32.02 03/12/2023 1:01 PM EDT documented in this encounter Progress Notes * Ruel Fajardo MD - 05/11/2023 3:05 PM EST Subjective: HPI: Theron Gao is a 68 year old male with hx of Severe Asthma (on chronic steroid), allergic bronchopulmonary aspergillosis, HTN, Lumbar Compression fracture (dx on 03/2019), chronic LE swelling, DDD with foraminal narrowing, Osteoporosis, CIDP (receiving IVIG), mild aortic stenosis seen for L olecranon bursitis: - resolved with ice - denied any recurrent swelling or pain HTN: - on losartan 50mg daily, HCTZ 25mg daily and Metoprolol ER 25mg daily Asthma: - on wixela and spiriva - also taking prednisone 10mg daily Mild aortic stenosis: - denied any syncope or dizziness Patient Active Problem List Diagnosis Code Elevated IgE level R76.8 HTN, goal below 140/90 I10 JOANN (obstructive sleep apnea) G47.33 Asthma, severe persistent J45.50 Mixed rhinitis J31.0 Allergic bronchopulmonary aspergillosis ([facility]) B44.81 S/P UPPP (uvulopalatopharyngoplasty) Z98.890 Current chronic [...] neuropathy G62.89 CIDP (chronic inflammatory demyelinating polyneuropathy) ([facility]) G61.81 Wheeze R06.2 Severe obesity with body mass index (BMI) of 35.0 to 39.9 with serious comorbidity ([facility]) E66.01 Mild aortic valve stenosis I35.0 Current Outpatient Medications Medication Sig Dispense Refill [...] skin every 4 weeks. 1 Each 11 DULoxetine HCl 60 MG Oral Capsule Delayed [...] Tablet in the morning. 30 Tablet 2 Azelastine HCl 137 MCG/SPRAY Nasal Solution Administer into nostril 2 Sprays in the morning AND 2 Sprays before bedtime. 30 mL 11 Gabapentin 100 MG Oral Capsule (Neurontin) 3 tabs at bedtime 90 Capsule 5 Albuterol Sulfate (2.5 MG/3ML) 0.083% Inhalation Nebulization Solution (Proventil) INHALE ONE VIAL VIA NEBULIZER EVERY 4 HOURS NEEDED FOR WHEEZING OR SHORTNESS OF BREATH 180 mL 1 hydrALAZINE HCl 25 MG Oral Tablet (Apresoline) Take 1 Tablet by mouth every 4 hours as needed for Hypertension. If Blood pressure above 160/100 60 Tablet 0 Losartan Potassium 25 MG Oral Tablet (Cozaar) Take 2 Tablets by mouth in the morning. 180 Tablet 1 Fish Oil 1000 MG Oral Capsule Take 1 Capsule by mouth in the morning. D3-1000 25 MCG (1000 UT) Oral Capsule (Cholecalciferol) Take 1 Capsule by mouth in the morning. hydroCHLOROthiazide 25 MG Oral Tablet (Hydrodiuril) Take 1 Tablet by mouth in the morning. 90 Tablet 1 Metoprolol Succinate ER 25 MG Oral Tablet Extended Release 24 Hour (toPROL XL) Take 1 Tablet by mouth in the morning. And can take 4 tabs daily during IVIG treatment days. 150 Tablet 1 Mometasone Furoate 50 MCG/ACT Nasal Suspension inhale 2 SPRAYS INTO EACH NOSTRIL DAILY. 17 g 11 Spiriva Respimat 2.5 MCG/ACT Inhalation Aerosol Solution (Tiotropium [place]ard Monohydrate) Inhale 2 Puffs by mouth in the morning. 12 g 2 Montelukast Sodium 10 MG Oral Tablet (Singulair) Take 1 Tablet by mouth in the morning. 90 Tablet 3 predniSONE 10 MG Oral Tablet (Deltasone) 1-3 tabs daily as directed 90 Tablet 0 Albuterol Sulfate HFA 108 (90 Base) MCG/ACT Inhalation Aerosol Solution TAKE 2 PUFFS BY MOUTH EVERY4 HOURS NEEDED FOR WHEEZE 8.5 g 5 Cyclobenzaprine HCl 5 MG Oral Tablet (Flexeril) TAKE ONE TABLET BY MOUTH TWICE DAILY NEEDED FOR MUSCLE SPASM 30 Tablet 1 hydroCHLOROthiazide 12.5 MG Oral Capsule (Hydrodiuril) Take 3 Capsules by mouth in the morning. - on days of IVIG infusion. 60 Capsule 1 Zoster Vac Recomb Adjuvanted 50 MCG/0.5ML Intramuscular Suspension Reconstituted (Shingrix) Inject 0.5 mL into a large muscle now and repeat dose in 60 to 180 days 1 Each 1 Current Facility-Administered Medications Medication Dose Route Frequency Provider Last Rate Last Admin Albuterol Sulfate (Proventil) (2.5 MG/3ML) 0.083% inhalation solution 2.5 mg 2.5 mg Nebulizer Anatoliy Toney PA-C 2.5 mg at 09/27/22 1350 Albuterol Sulfate (Proventil) (5 MG/ML) 0.5% *conc* inhalation solution 2.5 mg 2.5 mg Nebulizer Anatoliy Rahman PA-C Past Medical History: Diagnosis Date Asthma Asthma, moderate persistent 08/29/2011 Hypertension extermination inspector current use of systemic steroids 05/13/2012 Obesity Sleep apnea does not need CPAP Sleep apnea, obstructive Past Surgical History: Procedure Laterality Date COLONOSCOPY, DIAGNOSTIC (RECTUM) 04/03/2016 adenomatous & hyperplastic polyps, diverticulosis, repeat 5 yrs/COLONOSCOPY FLEXIBLE PROXIMAL DIAGNOSTIC performed by Hamilton Arizmendi MD at ENDOSCOPY [facility] COLONOSCOPY, DIAGNOSTIC (RECTUM) 11/21/2022 diverticulosis/hemorrhoids/biopsies show adenomatous polyps/recall 5 years/COLONOSCOPY FLEXIBLE PROXIMAL DIAGNOSTIC performed by Hamilton Arizmendi MD at ENDOSCOPY [facility] MUSCLE BIOPSY, DEEP Right 07/30/2020 BIOPSY MUSCLE DEEP performed by Meek Sullivan MD at OR [facility] PROCEDURE - GENERAL Right 07/30/2020 biopsy of upper right leg by Dr Meek Sullivan REMOVAL OF TONSILS, UNDER AGE 12 Tonsils Removal,<12 Y/O REPAIR INITIAL INGUINAL HERNIA REDUCIBLE AGE 5 OR MORE Right 2005 REVISION OF PALATE, PHARYNX/UVULA ? 1994 Review of patient's allergies indicates: Allergen Reactions Amoxicillin Rash Family History Problem Relation Age of Onset Asthma Uncle (Unspecified) 2 maternal Allergies Daughter allergic rhinitis; cats, dogs Hypertension Mother Other (Lyme Disease) Mother Hypertension Father Other (Back problems) Father Breast Cancer Sister Heart Disorder Sister Social History Tobacco Use Smoking status: Former Packs/day: 2.00 Years: 3.00 Additional pack years: 0.00 Total pack years: 6.00 Types: Cigarettes Quit date: 06/25/1972 Years since quittin.9 Smokeless tobacco: Former Types: Snuff Tobacco comments: no passive smoke Substance Use Topics Alcohol use: Yes Comment: occasional beer- not at present time04/22/20 Vaping/E-Cigarette Use Vaping/E-Cigarette Use Never User Vaping/E-Cigarette Substances Nicotine No Other No Flavoring No THC No Cannabidiol (CBD) No Vaping/E-Cigarette Devices Disposable No Pre-filled or Refillable Cartridge No Refillable Tank No Pre-filled Pod No ROS: -Per HPI OBJECTIVE: BP 124/88 | Pulse 81 | Temp 36.4 C (97.5 F) | Wt 104.1 kg (229 lb 9.6 oz) | SpO2 97% | BMI 32.02 kg/m | BSA 2.28 m PHYSICAL EXAM: Vitals are reviewed General:. NAD, well developed HEENT:. Normal Conjunctiva, EOMI Cardiac:. Normal S1, S2, no murmur Lungs:. CTA, no wheezing or crackles MSK:. Walks with cane Psych:. AAOx3, normal affect ASSESSMENT/PLAN: Severe persistent asthma without complication (Primary) - doing well on current meds HTN, goal below 140/90 - BP is well managed on current meds - continue losartan 50mg daily, HCTZ 25mg daily and Metoprolol ER 25mg daily Mild aortic valve stenosis - echo every 2 years Follow Up: Return in about 6 months (around 11/09/2023). Ruel Fajardo MD Family medicine[address] [address] documented in this encounter Nursing Notes * Lyndsey Armstrong CMA - 05/11/2023 2:48 PM EST He is here today for a regular recheck. He doesn't have any problems or concerns today. He is doingwell. documented in this encounter Plan of Treatment Upcoming Encounters Date Type Department Care Team (Late st Contact Info) Description 05/22/2023 1:00 PM EST Nurse Only Pulmonary Medicine, [facility] 132 [facility] [place] [address] Gw, Nurse Pulmonary 132 [facility] [place] [address] 06/04/2023 9:00 AM EST Hem/Onc Treatment Hematology[address] [address] [place], Chair 3 Hem Onc [address] [address] 06/05/2023 9:30 AM EST Hem/Onc Treatment Hematology/[address], [address] [address] 06/06/2023 11:00 AM EST Hem/Onc Treatment Hematology/Oncology Treatment, [address] [place], [place] [address] [place], Chair 5 Hem Onc [facility] 200 [facility] [place] [address] 06/07/2023 9:00 AM EST Hem/Onc Treatment Hematology/Oncology Treatment, [place] [facility] [address] [place], Chair 3 Hem Onc [facility] 200 [facility] [place] [address] 07/24/2023 1:40 PM EST Office Visit Neurology [facility] 200 [facility] [place] [address] John Dodge, 200 [facility] [place] [address] 10/19/2023 11:15 AM EDT Office Visit Otolaryngology [facility] 132 [facility] [place] [address] Martita Gaston MD 132 [facility] [place] [address] 11/14/2023 3:00 PM EDT Office Visit Family Medicine [address] [phone] Ruel Fajardo MD [address] [place] [address] [place] [address] 11/20/2023 1:30 PM EDT Office Visit Allergy/Immunology [facility] 200 [facility] [place] [address] Adriel Montalvo MD 200 [facility] [place] [address] Scheduled Procedures Name Priority Associated Diagnoses Date/Ti [...] D LEVEL ONCE IN A LIFETIME-USE SMARTSET# 21159 Completed 11/18/2020 Influenza Vaccine (FLU shot) Completed [...] Visit Diagnoses Diagnosis Severe persistent asthma without complication- Primary Need for efqoqutueg-ibkqnty-ijjrbfyvr (Tdap) vaccine Need for prophylactic vaccination with combined wvmlsleluy-duehzqr-auzhqtkcm (DTP) vaccine Need for shingles vaccine Need for prophylactic vaccination and inoculation against other viral diseases HTN, goal below 140/90 Unspecified essential hypertension Mild aortic valve stenosis Aortic valve disorders documented in this encounter Care Teams Clinic Office Manager Relationship Specialty Start Date End Date Ruel Fajardo MD [address] [place] [address] [place] [address] PCP - General Family Medicine 10/17/19 documented as of this encounter"
--- OUTSIDE RECORDS SUMMARY | 2023-09-12 10:51 | External Medical Summary | Summary of Care ---
Author Name Unknown Organization [facility] Address [address] [facility] [place] [address] Phone [phone] Care Team Providers Care Medication Administration Professional Name Role Phone Ruel Hastings MD Primary Care Provide r Reason for Visit * Reason Onset Date Comments Medication Refill 05/08/2023 Encounter Details Date Type Department Care Team (Late st Contact Info) Description 05/08/2023 Refill Family Medicine [address] [phone] Ruel Hastings MD [address] [place] [address] [place] [address] HTN, goal below 140/90 Allergies [...] P (chronic inflammatory demyelinating polyneuropathy) ([facility]) Take by mouth 4 Tablets in [...] on 02/21/2023 Gabapentin 100 MG Oral Capsule (Neurontin)Indicati ons:CIDP (chronic inflammatory demyelinating polyneuropathy) ([facility]) 3 tabs at bedtime 90 Capsule [...] Respimat 2.5 MCG/ACT Inhalation Aerosol Solution (Tiotropium [place] Monohydrate)Indicat ions:Severe persistent asthma without complication Inhale [...] IVIG infusion. 60 Capsule 1 05/08/2023 Active hydroCHLOROthiazide 12.5 MG Oral Capsule (Hydrodiuril)Indica tions:HTN, goal below 140/90 Take 3 Capsules by mouth in the morning. - on days of IVIG infusion. 60 Capsule 1 10/30/2022 Discontinu ed(Refill) Hospital, Clinic, or Other Facility Administered Medication [...] encounter Miscellaneous Notes * Telephone Encounter - Sammy Wells RPh - 05/08/2023 8:03 PM ESTSigned Prescriptions: Disp Refills hydroCHLOROthiazide 12.5 MG Oral Capsule (*60 Cap*1 Sig: Take 3 Capsules by mouth in the morning. - on days of IVIG infusion.Authorizing Provider: Yana HASTINGS User: SAMMY WELLS documented in this encounter Plan of Treatment Upcoming Encounters Date Type Department Care Team (Late st Contact Info) Description 05/09/2023 1:00 PM EST Hem/Onc Treatment Hematology/Oncology Treatment, [place] [address] [place] [address] [place], Chair 8 Hem Onc [place] [address] [place] [phone] 05/10/2023 9:00 AM EST Hem/Onc Treatment Hematology/Oncology Treatment, [place] 200 [facility], [place] [address] [place], Chair 3 Hem Onc Scenery 200 [facility] [place] [address] 05/11/2023 3:00 PM EST Office Visit Family [address] [place] [phone] Ruel Hastings MD [address] [place] [address] [place] [address] 05/22/2023 1:00 PM EST Nurse Only Pulmonary Medicine, [facility] 132 [facility] [place] [address] Gw, Nurse Pulmonary 132 [facility] [place] [address] 06/04/2023 9:00 AM EST Hem/Onc Treatment Hematology/Oncology Treatment, [address], [place] [address] [place], Chair 3 Hem Onc Scenery 200 [facility] [place] [address] 06/05/2023 9:30 AM EST Hem/Onc Treatment Hematology/Oncology Treatment, [address], [place] [address] 06/06/2023 9:00 AM EST Hem/Onc Treatment Hematology/Oncology Treatment, [address], [place] [address] [place], Chair 6 Hem Onc Scenery 200 [facility] [place], [place] [address] 06/07/2023 9:00 AM EST Hem/Onc Treatment Hematology/Oncology Treatment, [address] [place] [address] [place], Chair 3 Hem Onc [place] [place] [address] 07/24/2023 1:40 PM EST Office Visit Neurology [facility] 200 [facility] [place], [place] [address] John Dodge DO 200 [facility] [place] [address] 10/19/2023 11:15 AM EDT Office Visit Otolaryngology [facility] [address] [place] [address] Martita Gaston MD [address] [place] [address] 11/20/2023 1:30 PM EDT Office Visit Allergy/Immunology [facility] [address] [place] [address] Adriel Montalvo MD 200 [facility] [place] [address] Scheduled Procedures Name Priority Associated Diagnoses Date/Ti [...] DXA Scan 07/29/2021 07/29/2019 GFR 09/07/2023 09/06/2022, 08/02/2022, 06/09/2021, Additional history exists Albumin/Creatinine Ratio 09/06/2025 023, 02/20/2022, 08/07/2019 Diabetes Screening 09/06/2025 09/06/2022, 0 02/20/2022, 02/20/2022, Additional history exists Lipid Panel 09/07/2027 09/06/2022, 01/24, 08/07/2019, Additional history exists COLONOSCOPY-EVERY 5 YRS AGES 18-100 11/22/2027 11/21/2022, 11/21/2022, 04/03/2016, Additional history exists AAA Screening Completed 08/11/2019 VITAMIN D LEVEL ONCE IN A LIFETIME-USE SMARTSET# 37986 Completed 11/18/2020 Influenza Vaccine (FLU shot) Completed [...] hypertension documented in this encounter Care Teams Medication Administration Professional Relationship Specialty Start Date End Date Ruel Hastings MD [address] [place] [address] [place] [address] PCP - General Family Medicine 10/17/19 documented as of this encounter
--- OUTSIDE RECORDS SUMMARY | 2023-09-12 10:52 | External Medical Summary | Summary of Care ---
Author Name Unknown Organization [facility] Address [address] [facility] [address] Phone [phone] Care Team Providers Care Book Coverer Name Role Phone Ruel Fajardo MD Primary Care Provide r Encounter Details Date Type Department Care Team Description 04/12/2023 Nurse Only Pulmonary Medicine, [facility] 132 [facility] [place] [address] Gw, Nurse Pulmonary 132 [facility] [place] [address] Arrived Allergies Active Allergy Reactions Severity Noted Date Comments Amoxicillin Rash 07/17/2011 documented as of this encounter (statuses as of 04/12/2023) Medications Medication Sig Dispensed Refills Start Date [...] Capsule (Neurontin)Indicatio ns:CIDP (chronic inflammatory demyelinating polyneuropathy) ([facility]) [...] Respimat 2.5 MCG/ACT Inhalation Aerosol Solution (Tiotropium [place] Monohydrate)Indicati ons:Severe persistent asthma without complication Inhale [...] Route Frequency Start Date End Date Status Mepolizumab (Nucala) inj 100 mgIndications:Severe persistent asthma without complication 100 mg SC [id number] 05/15/2022 04/16/2023 Acti ve Albuterol Sulfate (Proventil) (2.5 MG/3ML) 0.083% inhalation solution 2.5 mgIndications:Severe persistent asthma without complication 2.5 mg NEBULIZER PRN 09/20/2022 09/20/2023 Acti ve Albuterol Sulfate (Proventil) (5 MG/ML) 0.5% *conc* inhalation solution 2.5 mgIndications:Severe persistent asthma without complication 2.5 mg NEBULIZER PRN 09/20/2022 09/20/2023 Acti ve documented as of this encounter (statuses as of 04/12/2023) Active Problems Problem Noted Date Mild aortic valve stenosis 09/27/2022 Severe obesity with body mas s index (BMI) of 35.0 to 39.9 with serious comorbidity 09/06/2022 Wheeze 06/28/2021 CIDP (chronic inflammatory demyelinating polyneuropathy) 02/07/2021 Myopathy 01/27/2021 Hereditary and idiopathic peripheral lola ropathy 01/27/2021 Polyneuropathy, peripheral sensorimotor axonal 01/27/2021 Axonal sensorimotor neuropathy Allergic eosinophilia 12/16/2020 Osteoporosis 11/18/2020 Dizziness 11/10/2016 History of left mastoidectomy 11/10/2016 Sensorineural hearing loss (SNHL) of rig ht ear 11/10/2016 Mixed conductive and sensori neural hearing loss of left ear with restricted hearing of right ear 11/10/2016 Chronic sphenoidal sinusitis 04/28/2014 Other chronic sinusitis 04/28/2014 Chronic maxillary sinusitis 04/28/2014 Current chronic use of systemic steroids 05/13/2012 S/P UPPP (uvulopalatopharyngoplasty) 07/2011 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 Asthma, severe persistent 10/16/2011 Mixed rhinitis 10/16/2011 Elevated IgE level 10/11/2011 HTN, goal below 140/90 JOANN (obstructive sleep apnea) documented as of this encounter (statuses as of 04/12/2023) Resolved Problems Problem Noted Date Resolved Date Wedge compression fracture o f unspecified lumbar vertebra, initial encounter for closed fracture 09/06/2022 09/06/2022 Compression of lumbar vertebra 11/18/2020 0 01/20/2021 Asthma, moderate persistent 08/29/201109/24 Asthma exacerbation 07/17/2011 05/13/2012 documented as of this encounter (statuses as of 04/12/2023) Immunizations Name Administration Dates Next Due COVID-19 [...] alcohol) occasional beer- not at present time04/22/20 Food Insecurity Answer Date Recorded Within the past 12 months, y ou worried that your food would run out before you got money to buy more. Never true 10/10/2019 Within the past 12 months, t he food you bought just didn't last and you didn't have money to get more. Never true 10/10/2019 Sex Assigned at Date Recorded Not on file Job Start Date Occupation Industry Not on file Not on file Not on file documented as of this encounter Last Filed Vital Signs Vital Sign Reading Time Taken Comments Blood Pressure 138/82 04/12/2023 12:55 PM EDT Pulse 83 04/12/2023 12:55 PM EDT Temperature 35.8 C (96.5 F) 04/12/2023 12:55 PM E DT Respiratory Rate 16 04/12/2023 12:55 PM EDT Oxygen Saturation 97% 04/12/2023 12:55 PM EDT Inhaled Oxygen Concentration - - Weight - - Height - - Body Mass Index - - documented in this encounter Plan of Treatment Upcoming Encounters Date Type Specialty Care Team Description 04/24/2023 NeuroDiagnostic Study Neurophysiology Amy Maxwell MD [address] [place] [address] 05/07/2023 Hem/Onc Treatment Hematology [place], Chair 3 Hem Onc Scenery 200 [facility] [place] [address] 05/08/2023 Hem/Onc Treatment Hematology [place], Chair 2 Hem Onc Scenery [address] [place] [address] 05/09/2023 Hem/Onc Treatment Hematology [place], Chair 8 Hem Onc Scenery [address] [place] [address] 05/10/2023 Hem/Onc Treatment Hematology [place], Chair 3 Hem Onc Scenery [address] [place] [address] 05/11/2023 Office Visit Family Medicine Ruel Fajardo MD [address] [place] [address] [place] [address] 05/14/2023 Nurse Only Pulmonary Gw, Nurse Pulmonary [address] [place] [address] 07/24/2023 Office Visit Neurology John Dodge DO [address] [place] [address] 10/19/2023 Office Visit Otolaryngology Martita Gaston MD [address] [place] [address] 11/20/2023 Office Visit Allergy & Immunology Adriel Montalvo MD [address] [place] [address] Scheduled Procedures Name Priority Associated Diagnoses Date/Ti [...] D LEVEL ONCE IN A LIFETIME-USE SMARTSET# [id number] Completed 11/18/2020 Influenza Vaccine (FLU shot) Completed [...] (Nucala) inj 100 mg 100 mg, Subcutaneous, [id number], First dose on Sun05/15/22 at 1630, Last dose on Sun03/19/23 at 1630, For 12 doses Given 04/12/2023 12:59 PM EDT 100 mg Arm Left Upper Given 03/12/2023 1:00 PM EDT 100 mg Ar m Left Upper Given 02/08/2023 12:45 PM EDT 100 mg A rm Right Upper documented in this encounter Care Teams Book Coverer Relationship Specialty Start Date End Date Ruel Fajardo MD [address] [place] [address] [place] [address] PCP - General Family Medicine 10/17/19 documented as of this encounter
--- OUTSIDE RECORDS SUMMARY | 2023-09-12 10:52 | External Medical Summary | Summary of Care ---
Author Name Unknown Organization [facility] Address [address] [facility] [place] [address] Phone [phone] Care Team Providers Care Animal Rehabilitator Name Role Phone Ruel Fajardo MD Primary Care Provide r Encounter Details Date Type Department Care Team (Late st Contact Info) Description 05/02/2023 Orders Only Neurology [facility] [address] [place] [address] John Dodge, DO [address] [place] [address] Allergies Active Allergy Reactions Criticality Noted Date Comments Amoxicillin Rash 07/17/2011 documented as of this encounter (statuses as of 05/02/2023) Medications Medication Sig Dispensed Refills Start Date [...] demyelinating polyneuropathy) ([facility]) Take by mouth 4 Tablets in [...] demyelinating polyneuropathy) ([facility]) 3 tabs at bedtime 90 Capsule [...] Respimat 2.5 MCG/ACT Inhalation Aerosol Solution (Tiotropium [place] Monohydrate)Indicati ons:Severe persistent asthma without complication Inhale [...] as of this encounter (statuses as of 05/02/2023) Active Problems Problem Noted Date Diagnosed Date [...] as of this encounter (statuses as of 05/02/2023) Resolved Problems Problem Noted Date Diagnosed Date Resolved Date Wedge compression fracture o f unspecified lumbar vertebra, initial encounter for closed fracture 09/06/2022 09/06/2022 Compression of lumbar vertebra 11/18/2020 01/20/2021 Asthma, moderate persistent 08/29/2011 10/16/2011 Asthma exacerbation 07/17/2011 05/13/20 12 documented as of this encounter (statuses as of 05/02/2023) Immunizations Name Administration Dates Next Due COVID-19 [...] Care Team (Late st Contact Info) Description 05/07/2023 9:00 AM EST Hem/Onc Treatment Hematology/[address], [address] [address] [place], Chair 3 Hem Onc Scenery [address] [place] [address] 05/08/2023 9:00 AM EST Hem/Onc Treatment Hematology/[address], [address] [address] [place], Chair 2 Hem Onc Scenery 200 [facility] [place] [address] 05/09/2023 1:00 PM EST Hem/Onc Treatment Hematology/[address], [address] [address] [place], Chair 8 Hem Onc Scenery [address] [facility] [place] [address] 05/10/2023 9:00 AM EST Hem/Onc Treatment [facility]ematology[facility] Treatment, [place] [facility] [address] [place], Chair 3 Hem Onc Scenery [address] [facility] [place] [address] 05/11/2023 3:00 PM EST Office Visit Family [address] [place] [phone] Ruel Fajardo MD [address] [place] [address] [place] [address] 05/14/2023 1:00 PM EST Nurse Only Pulmonary Medicine, [facility] [address] [facility] [place] [address] Gw, Nurse Pulmonary [address] [place] [address] [place] [address] 07/24/2023 1:40 PM EST Office Visit Neurology [facility] [address] [place] [address] John Dodge, [address] [place] [address] 10/19/2023 11:15 AM EDT Office Visit Otolaryngology [facility] [address] [facility] [place] [address] Martita [facility]aston MD [address] [facility] [address] 11/20/2023 1:30 PM EDT Office Visit Allergy/Immunology [facility] [address] [place] [address] Adriel Montalvo MD 200 [facility] [place] [address] Scheduled Procedures Name Priority Associated Diagnoses Date/Ti [...] D LEVEL ONCE IN A LIFETIME-USE SMARTSET# 24184 Completed 11/18/2020 Influenza Vaccine (FLU shot) Completed , 05/15/2022, 06/09/2021, Additional history exists GARDASIL-HPV IMMUNIZATION SERIES Aged Out No longer eligible based on patient's age to complete this topic MENINGOCOCCAL (MENACTRA/MENVEO) Aged Out No longer eligible based on patient's age to complete this topic documented as of this encounter Medical Devices Not on filedocumented as of this encounter Care Teams Animal Rehabilitator Relationship Specialty Start Date End Date Ruel Fajardo MD [address] [place] [address] [place] [phone] PCP - General Family Medicine 10/17/19 documented as of this encounter
--- OUTSIDE RECORDS SUMMARY | 2023-09-12 10:52 | External Medical Summary | Summary of Care ---
Author Name Unknown Organization [facility] Address [address] [facility] [place] [address] Phone [phone] Care Team Providers Care Molasses Coloring Operator Name Role Phone Ruel Fajardo MD Primary Care Provide r Reason for Visit * Reason Comments Infusion 2/4 privigen * Episode Based Medications (Routine) - Authorized Specialty Diagnoses / Procedures Referred By Contac t Referred To Contact Diagnoses CIDP (chronic inflammatory demyelinating polyneuropathy) ([facility]) Procedures [place] INJ IVIG PRIVIGEN 500 MG John Dodge, DO [address] [place] [address] Anc Hem/Onc [address] [place] [phone] Referral ID Status Reason Start Date Expiration Date V isits Requested Visits Authorized [id number] Authorized 03/16/2023 03/16/2024 999 999 Encounter Details Date Type Department Care Team Description 04/10/2023 Hem/Onc Treatment Hematology/Oncology Treatment, [place] [address] [facility] [place] [address] [place], Chair 3 Hem Onc [facility] 200 [facility] [place] [address] CIDP (chronic inflammatory demyelinating polyneuropathy) ([facility])* Allergies Active Allergy Reactions Severity Noted Date Comments Amoxicillin Rash 07/17/2011 documented as of this encounter (statuses as of 04/11/2023) Medications Medication Sig Dispensed Refills Start Date [...] P (chronic inflammatory demyelinating polyneuropathy) ([facility]) Take by mouth 4 Tablets [...] ons:CIDP (chronic inflammatory demyelinating polyneuropathy) ([facility]) 3 tabs at bedtime 90 Capsule 5 05/22/2022 Active Albuterol Sulfate (2.5 MG/3ML) 0.083% Inhalation Nebulization Solution (Proventil)Indicati ons:Wheeze INHALE ONE VIAL VIA NEBULIZER EVERY 4 HOURS NEEDED FOR WHEEZING OR SHORTNESS OF BREATH 180 mL 1 10/14/2022 Active hydroCHLOROthiazide 12.5 MG Oral Capsule (Hydrodiuril)Indica [...] 2.5 MCG/ACT Inhalation Aerosol Solution (Tiotropium [place] Monohydrate)Indicat ions:Severe persistent asthma without complication Inhale [...] NEEDED FOR MUSCLE SPASM 30 Tablet 1 02/14/2023 Discontinu ed(Refill) Hospital, Clinic, or Other Facility Administered Medication Ordered Dose Route Frequency Start Date End Date Status Mepolizumab (Nucala) inj 100 mgIndications:Severe persistent asthma without complication 100 mg SC [id number] 05/15/2022 04/16/2023 Acti ve Albuterol Sulfate (Proventil) (2.5 MG/3ML) 0.083% inhalation solution 2.5 mgIndications:Severe persistent asthma without complication 2.5 mg NEBULIZER PRN 09/20/2022 09/20/2023 Acti ve Albuterol Sulfate (Proventil) (5 MG/ML) 0.5% *conc* inhalation solution 2.5 mgIndications:Severe persistent asthma without complication 2.5 mg NEBULIZER PRN 09/20/2022 09/20/2023 Acti ve documented as of this encounter (statuses as of 04/11/2023) Active Problems Problem Noted Date Mild aortic [...] as of this encounter (statuses as of 04/11/2023) Resolved Problems Problem Noted Date Resolved Date Wedge compression fracture o f unspecified lumbar vertebra, initial encounter for closed fracture 09/06/2022 09/06/2022 Compression of lumbar vertebra 11/18/2020 0 01/20/2021 Asthma, moderate persistent 08/29/201109/24 Asthma exacerbation 07/17/2011 05/13/2012 documented as of this encounter (statuses as of 04/11/2023) Immunizations Name Administration Dates Next Due COVID-19 [...] Sign Reading Time Taken Comments Blood Pressure 180/114 04/10/2023 10:35 AM EDT patient asymptomatic Pulse 72 04/10/2023 10:35 AM EDT Temperature 36.3 C (97.3 F) 04/10/2023 8 :50 AM EDT Respiratory Rate 14 04/10/2023 10:3 5 AM EDT Oxygen Saturation 97% 04/10/2023 8:5 0 AM EDT Inhaled Oxygen Concentration - - Weight - - Height - - Body Mass Index - - documented in this encounter Nursing Notes * Anitha Montez LPN - 04/11/2023 7:42 AM EDT Patient was contacted for Specialty HTN. Visit date not found (in office), Visit date not found (telemedicine) Care Gap Outreach Action Taken: Did not contact: After chart review outreach not indicated. BP discussed at this visit Anitha Montez LPN 04/11/2023 * Sandra Diamond RN - 04/10/2023 11:39 AM EDT Goals: Patient will remain free from injury. Possible barriers to meeting goals: ambulation with IV pole, use of assistive device for ambulation, benadryl side effects Stability of the patient: Moderately stable - low risk of patient condition declining or worsening Summary regarding today's goals: Met: patient without injury during treatment today. Pt tolerated privigen infusion well. No complaints. BP elevated throughout infusion. Pt asymptomatic and states BP usually goes down once he leaves. Frequently monitors BP at home and will follow-up with PCP if BP remains elevated. Discharged in stable condition. * Sandra Diamond RN - 04/10/2023 10:31 AM EDT Chair 6 Pt here for day 2/4 privigen. PIV remains intact. No complaints. BP noted to be high. Pt states he took daily metoprolol dose and will take prn hydralazine. Safety and Risk for Injury Patient will remain free from injury. Ensure appropriate safety devices are available. Provide and maintain safe environment. documented in this encounter Plan of Treatment Upcoming Encounters Date Type Specialty Care Team Description 04/11/2023 Hem/Onc Treatment Hematology [place], Chair 3 Hem Onc Scenery [address] [place] [address] 04/12/2023 Hem/Onc Treatment Hematology [place], Chair 6 Hem Onc Scenery [address] [place] [address] 04/12/2023 Nurse Only Pulmonary [place], Nurse Pulmonary 132 [place] [address] 04/24/2023 NeuroDiagnostic Study Neurophysiology Amy Maxwell MD [address] [place] [address] 05/07/2023 Hem/Onc Treatment Hematology [place], Chair 3 Hem Onc Scenery [address] [place] [address] 05/08/2023 Hem/Onc Treatment Hematology [place], Chair 2 Hem Onc Scenery [address] [place] [address] 05/09/2023 Hem/Onc Treatment Hematology [place], Chair 8 Hem Onc Scenery [address] [place] [address] 05/10/2023 Hem/Onc Treatment Hematology [place], Chair 3 Hem Onc Scenery [address] [place] [address] 05/11/2023 Office Visit Family Medicine Ruel Fajardo MD [address] [place] [address] [place] [address] 07/24/2023 Office Visit Neurology John Dodge DO [address] [place] [address] 10/19/2023 Office Visit Otolaryngology Martita Gaston MD 132 [place] [address] 11/20/2023 Office Visit Allergy & Immunology Adriel Montalvo MD [address] [place] [address] Scheduled Procedures Name Priority Associated Diagnoses Date/Ti [...] D LEVEL ONCE IN A LIFETIME-USE SMARTSET# [id number] Completed 11/18/2020 Influenza Vaccine (FLU shot) Completed [...] 650 mg 650 mg, Oral, ONCE, On Sun04/10/23 at 1000, For 1 dose, Maximum of 4 grams (4000 mg) per day. Given 04/10/2023 9:05 AM EDT 650 mg diphenhydrAMINE (Benadryl) cap 25 mg 25 mg, Oral, ONCE, On Sun04/10/23 at 1000, For 1 dose Given 04/10/2023 9:05 AM EDT 25 mg hEParin 100 UNIT/ML Lock Flush inj 500 Units 500 Units (5 mL), IV Lock, PRN Other, IV Flush, Starting on Sun04/10/23 at 0858, Until Sun04/10/23 at 1605, For 24 hours, Do not flush if lock, PICC, or central line not in place; IV infusing or unable to flush. Given 04/10/2023 11:23 AM EDT 500 Units Immune Globulin Human-IVIG 10% (Privigen) IV 40 g 40 g, IV Piggyback, ONCE, 1 dose, On Sun04/10/23 at 1030, Total dose = 45 gm [...] Infusion duration = 1.8 hours Rate Change 04/10/2023 10:35 AM EDT 423 mL/hr Rate Change 04/10/2023 10:20 AM EDT 212 mL/hr Start Infusion 04/10/2023 9:59 AM EDT 40 g 106 mL/hr Immune Globulin Human-IVIG 10% (Privigen) IV 5 g 5 g, IV Piggyback, ONCE, 1 dose, On Sun04/10/23 at 1000, Total dose = 45 gm [...] Infusion duration = 1.8 hours Rate Change 04/10/2023 9:38 AM EDT 53 mL/hr New Bag 04/10/2023 9:22 AM EDT 5 g 26 mL/hr NSS infusion 500 mL, Intravenous, at 50 mL/hr, CONTINUOUS, Starting on Sun04/10/23 at 1000, Until Sun04/10/23 at 1605 Start Infusion 04/10/2023 9:00 AM EDT 500 mL 50 mL/hr sodium chloride 0.9 % flush central line 10 mL 10 mL, IV Push, PRN Other, IV Flush, Starting on Sun04/10/23 at 0858, Until Sun04/10/23 at 1605, For 24 hours, Do not flush if lock, PICC, or central line not in place; IV infusing or unable to flush. Given 04/10/2023 11:23 AM EDT 10 mL documented in this encounter Care Teams Molasses Coloring Operator Relationship Specialty Start Date End Date Ruel Fajardo MD [address] [place] [address] [place] [id number] PCP - General Family Medicine 10/17/19 documented as of this encounter
--- OUTSIDE RECORDS SUMMARY | 2023-09-12 10:52 | External Medical Summary | Summary of Care ---
Author Name Unknown Organization [facility] Address [address] [facility] [place] [address] Phone [phone] Care Team Providers Care Weatherization Technician Name Role Phone Ruel Fajardo MD Primary Care Provide r Reason for Visit * Reason Comments IV Therapy Privigen D3 * Episode Based Medications (Routine) - Authorized Specialty Diagnoses / Procedures Referred By Contac t Referred To Contact Diagnoses CIDP (chronic inflammatory demyelinating polyneuropathy) ([facility]) Procedures [place] INJ IVIG PRIVIGEN 500 MG John Dodge, DO [address] [place] [address] Anc [facility] [place] 200 [facility] [place] [address] Referral ID Status Reason Start Date Expiration Date V isits Requested Visits Authorized [id number] Authorized 03/16/2023 03/16/2024 999 999 Encounter Details Date Type Department Care Team Description 04/11/2023 Hem/Onc Treatment Hematology/Oncology Treatment, [place] [address] [facility] [place] [address] [place], Chair 3 Hem Onc Scenery 200 [facility] [place] [address] CIDP (chronic inflammatory demyelinating polyneuropathy) ([facility])* Allergies Active Allergy Reactions Severity [...] Respimat 2.5 MCG/ACT Inhalation Aerosol Solution (Tiotropium [place] Monohydrate)Indicati ons:Severe persistent asthma without complication Inhale [...] persistent asthma without complication 100 mg SC [id number] 05/15/2022 04/16/2023 Acti ve Albuterol Sulfate (Proventil) [...] Sign Reading Time Taken Comments Blood Pressure 176/96 04/11/2023 11:55 AM EDT Pulse 80 04/11/2023 11:55 AM EDT Temperature 36.6 C (97.8 F) 04/11/2023 9:15 AM ED T Respiratory Rate 18 04/11/2023 9:15 AM EDT Oxygen Saturation 92% 04/11/2023 9:15 AM EDT Inhaled Oxygen Concentration - - Weight - - Height - - Body Mass Index - - documented in this encounter Nursing Notes * Kayla Ty RN - 04/11/2023 3:06 PM EDT Pt completed treatment without issues. BP elevated prior to discharge. Pt stated he will take hydralazine. Pt denies cardiac symptoms, SOB. PIV flushed with NSS/heparin; clamped and capped for use with treatment tomorrow. Goals: Pt will remain free from injury. Possible barriers to meeting goals: risk of reaction, pt is a high fall risk Stability of the patient: Moderately stable - low risk of patient condition declining or worsening Summary regarding today's goals: Met: Pt remained free from injury during treatment today. Discharged in stable condition. JF assisted. * Kayla Ty RN - 04/11/2023 9:29 AM EDT Chair 5, [place]. Pt has no acute concerns to report since treatment yesterday. PIV assessed for patency; NSS infusing. Safety and Risk for Injury Patient will remain free from injury. Ensure appropriate safety devices are available. Provide and maintain safe environment. documented in this encounter Plan of Treatment Upcoming Encounters Date Type Specialty Care Team Description 04/12/2023 Hem/Onc Treatment Hematology Oncology [place], Chair 6 Hem Onc Scenery [address] [place] [address] 04/12/2023 Nurse Only Pulmonary G[place], Nurse Pulmonary [address] [place] [address] 04/24/2023 NeuroDiagnostic Study Neurophysiology Amy Maxwell MD [address] [place] [address] 05/07/2023 Hem/Onc Treatment Hematology [place], Chair 3 Hem Onc Scenery [address] [place] [address] 05/08/2023 Hem/Onc Treatment Hematology [place], Chair 2 Hem Onc Scenery [address] [place] [address] 05/09/2023 Hem/Onc Treatment Hematology Oncology [place], Chair 8 Hem Onc Scenery [address] [place] [address] 05/10/2023 Hem/Onc Treatment Hematology Oncology [place], Chair 3 Hem Onc Scenery [address] [place] [address] 05/11/2023 Office Visit Family Medicine Ruel Fajardo MD [address] [place] [address] [place] [address] 07/24/2023 Office Visit Neurology John Dodge DO [address] [place] [address] 10/19/2023 Office Visit Otolaryngology Martita Gaston MD [address] [facility] [place] [address] 11/20/2023 Office Visit Allergy & Immunology Adriel Montalvo MD [address] [place] [address] Scheduled Procedures Name Priority Associated Diagnoses Date/Ti [...] D LEVEL ONCE IN A LIFETIME-USE SMARTSET# [id number] Completed 11/18/2020 Influenza Vaccine (FLU shot) Completed [...] ONCE PRN Other, Hypersensitivity Reaction, Starting on Sun04/11/23 at 0915, Until Allison 04/12/23 at 0914, For 24 hours EPINEPHrine 1 MG/ML inj 0.3 mg 0.3 mg, Intramuscular, ONCE PRN Other, Hypersensitivity Reaction or Anaphylaxis, Starting on Sun04/11/23 at 0915, Until [place] 04/12/23 at 0914, For 24 hours hEParin 100 UNIT/ML Lock Flush inj 500 Units 500 Units (5 mL), IV Lock, PRN Other, IV Flush, Starting on Sun04/11/23 at 0915, Until [place] 04/12/23 at 0914, For 24 hours, Do not flush if lock, PICC, or central line not in place; IV infusing or unable to flush. Given 04/11/2023 11:59 AM EDT 500 Units Hydrocortisone Sod Suc (PF) (Solu-Cortef) inj 100 mg 100 mg, IV Push, ONCE PRN Other, Hypersensitivity Reaction, Starting on Sun04/11/23 at 0915, Until [place] 04/12/23 at 0914, For 24 hours NSS infusion 500 mL, Intravenous, at 50 mL/hr, CONTINUOUS, Starting on Sun04/11/23 at 1030, Until Sun04/11/23 at 2028 Start Infusion 04/11/2023 9:17 AM EDT 500 mL 50 mL/hr sodium chloride 0.9 % flush central line 10 mL 10 mL, IV Push, PRN Other, IV Flush, Starting on Sun04/11/23 at 0915, Until [place] 04/12/23 at 0914, For 24 hours, Do not flush if lock, PICC, or central line not in place; IV infusing or unable to flush. Given 04/11/2023 11:59 AM EDT 10 mL Inactive Administered Medications - up to 3 most recent administrations Medication Order MAR Action Action Date Dose Rate Site Acetaminophen (Tylenol) tab 650 mg 650 mg, Oral, ONCE, On Sun04/11/23 at 1030, For 1 dose, Maximum of 4 grams (4000 mg) per day. Given 04/11/2023 9:27 AM EDT 650 mg diphenhydrAMINE (Benadryl) cap 25 mg 25 mg, Oral, ONCE, On Sun04/11/23 at 1030, For 1 dose Given 04/11/2023 9:27 AM EDT 25 mg Immune Globulin Human-IVIG 10% (Privigen) IV 40 g 40 g, IV Piggyback, ONCE, 1 dose, On Sun04/11/23 at 1100, Total dose = 45 gm [...] Infusion duration = 1.8 hours Rate Change 04/11/2023 10:55 AM EDT 423 mL/hr Start Infusion 04/11/2023 10:41 AM EDT 40 g 106 mL/h r Immune Globulin Human-IVIG 10% (Privigen) IV 5 g 5 g, IV Piggyback, ONCE, 1 dose, On Sun04/11/23 at 1030, Total dose = 45 gm [...] Infusion duration = 1.8 hours Rate Change 04/11/2023 10:40 AM EDT 212 mL/hr Rate Change 04/11/2023 10:25 AM EDT 106 mL/hr Rate Change 04/11/2023 10:10 AM EDT 53 mL/hr documented in this encounter Care Teams Weatherization Technician Relationship Specialty Start Date End Date Ruel Fajardo MD [address] [place] [address] [place] [phone] PCP - General Family Medicine 10/17/19 documented as of this encounter
--- OUTSIDE RECORDS SUMMARY | 2023-09-12 10:52 | External Medical Summary | Summary of Care ---
Author Name Unknown Organization [facility] Address [address] [facility] [address] Phone [phone] Care Team Providers Care Lean Sensei Name Role Phone Ruel Fajardo MD Primary Care Provide r Reason for Visit * Reason Comments IV Therapy IVIG * Episode Based Medications (Routine) - Authorized Specialty Diagnoses / Procedures Referred By Contac t Referred To Contact Diagnoses CIDP (chronic inflammatory demyelinating polyneuropathy) ([facility]) Procedures [place] INJ IVIG PRIVIGEN 500 MG John Dodge, DO [address] [place] [address] Anc Hem/Onc [address] [place] [address] Referral ID Status Reason Start Date Expiration Date V isits Requested Visits Authorized [id number] Authorized 03/16/2023 03/16/2024 999 [id number] Encounter Details Date Type Department Care Team Description 04/12/2023 Hem/Onc Treatment Hematology/Oncology Treatment, [place] [address] [facility] [address] [place], Chair 6 Hem Onc [facility] 200 [facility] [place] [address] CIDP (chronic inflammatory demyelinating polyneuropathy) ([facility])* Allergies Active Allergy Reactions Severity Noted Date [...] Capsule (Neurontin)Indicatio ns:CIDP (chronic inflammatory demyelinating polyneuropathy) ([facility] [...] Respimat 2.5 MCG/ACT Inhalation Aerosol Solution (Tiotropium [place] Monohydrate)Indicati ons:Severe persistent asthma without complication Inhale [...] persistent asthma without complication 100 mg SC [id number] 05/15/2022 04/16/2023 Acti ve Albuterol Sulfate (Proventil) [...] Sign Reading Time Taken Comments Blood Pressure 124/75 04/12/2023 9:06 AM EDT Pulse 80 04/12/2023 9:06 AM EDT Temperature 36.8 C (98.2 F) 04/12/2023 9:06 AM ED T Respiratory Rate 18 04/12/2023 9:06 AM EDT Oxygen Saturation 94% 04/12/2023 9:06 AM EDT Inhaled Oxygen Concentration - - Weight - - Height - - Body Mass Index - - documented in this encounter Nursing Notes * Dorota Ardon RN - 04/12/2023 2:20 PM EDT Chair 8. IV in place from tx yesterday, today is day 4/4 IVIG. Patient is feeling well today upon assessment without any acute issues or complaints. Safety and Risk [...] Amy Maxwell MD [address] [place] [address] 05/07/2023 Hem/Onc Treatment [facility]ology [place], Chair 3 Hem Onc Scenery [address] [place] [address] 05/08/2023 Hem/Onc Treatment [place] [place], Chair 2 Hem Onc Scenery [address] [place] [address] 05/09/2023 Hem/Onc Treatment H[facility]ology [place], Chair 8 Hem Onc Scenery [address] [place] [address] 05/10/2023 Hem/Onc Treatment H[place]ology [place], Chair 3 Hem Onc Scenery [address] [place] [address] 05/11/2023 Office Visit Family Medicine Ruel Fajardo MD [address] [place] [address] [place] [address] 05/14/2023 Nurse Only Pulmonary Gw, Nurse Pulmonary 132 [place] [address] 07/24/2023 Office Visit Neurology John Dodge DO [address] [place] [address] 10/19/2023 Office Visit Otolaryngology Martita Gaston MD [address] [place] [address] 11/20/2023 Office Visit Allergy & Immunology Adriel Montalvo MD [address] [place], [place] [address] Scheduled Procedures Name Priority Associated Diagnoses Date/Ti [...] D LEVEL ONCE IN A LIFETIME-USE SMARTSET# [id number] Completed 11/18/2020 Influenza Vaccine (FLU shot) Completed [...] ONCE PRN Other, Hypersensitivity Reaction, Starting on Sun04/12/23 at 0906, Until Sun04/13/23 at 0905, For 24 hours EPINEPHrine 1 MG/ML inj 0.3 mg 0.3 mg, Intramuscular, ONCE PRN Other, Hypersensitivity Reaction or Anaphylaxis, Starting on [place] 04/12/23 at 0906, Until Sun04/13/23 at 0905, For 24 hours hEParin 100 UNIT/ML Lock Flush inj 500 Units 500 Units (5 mL), IV Lock, PRN Other, IV Flush, Starting on Allison 04/12/23 at 0906, Until Sun04/13/23 at 0905, For 24 hours, Do not flush if lock, PICC, or central line not in place; IV infusing or unable to flush. Hydrocortisone Sod Suc (PF) (Solu-Cortef) inj 100 mg 100 mg, IV Push, ONCE PRN Other, Hypersensitivity Reaction, Starting on [place] 04/12/23 at 0906, Until Sun04/13/23 at 0905, For 24 hours NSS infusion 500 mL, Intravenous, at 50 mL/hr, CONTINUOUS, Starting on Sun04/12/23 at 1015, Until Sun04/12/23 at 2014 Start Infusion 04/12/2023 9:10 AM EDT 500 mL 50 mL/hr sodium chloride 0.9 % flush central line 10 mL 10 mL, IV Push, PRN Other, IV Flush, Starting on Allison 04/12/23 at 0906, Until Sun04/13/23 at 0905, For 24 hours, Do not flush if lock, PICC, or central line not in place; IV infusing or unable to flush. Inactive Administered Medications - up to 3 most recent administrations Medication Order MAR Action Action Date Dose Rate Site Acetaminophen (Tylenol) tab 650 mg 650 mg, Oral, ONCE, On Allison 04/12/23 at 1015, For 1 dose, Maximum of 4 grams (4000 mg) per day. Given 04/12/2023 9:10 AM EDT 650 mg diphenhydrAMINE (Benadryl) cap 25 mg 25 mg, Oral, ONCE, On Allison 04/12/23 at 1015, For 1 dose Given 04/12/2023 9:10 AM EDT 25 mg Immune Globulin Human-IVIG 10% (Privigen) IV 40 g 40 g, IV Piggyback, ONCE, 1 dose, On Allison 04/12/23 at 1045, Total dose = 45 gm [...] Infusion duration = 1.8 hours Rate Change 04/12/2023 10:30 AM EDT 423 mL/hr Rate Change 04/12/2023 10:15 AM EDT 212 mL/hr Start Infusion 04/12/2023 10:12 AM EDT 40 g 106 mL/h r Immune Globulin Human-IVIG 10% (Privigen) IV 5 g 5 g, IV Piggyback, ONCE, 1 dose, On Allison 04/12/23 at 1015, Total dose = 45 gm [...] Infusion duration = 1.8 hours Rate Change 04/12/2023 10:00 AM EDT 106 mL/hr Rate Change 04/12/2023 9:45 AM EDT 53 mL/hr Start Infusion 04/12/2023 9:30 AM EDT 5 g 26 mL/hr documented in this encounter Care Teams Lean Sensei Relationship Specialty Start Date End Date uRel Fajardo MD [address] [place] [address] [place] [address] PCP - General Family Medicine 10/17/19 documented as of this encounter
--- OUTSIDE RECORDS SUMMARY | 2023-09-12 10:52 | External Medical Summary | Summary of Care ---
Author Name Unknown Organization [facility] Address [address] [facility] [place] [address] Phone [phone] Care Team Providers Care Tile Mechanic Helper Name Role Phone Ruel Fajardo MD Primary Care Provide r Reason for Visit * Reason Comments IV Therapy Privigen 06/28 * Episode Based Medications (Routine) - Authorized Specialty Diagnoses / Procedures Referred By Contac t Referred To Contact Diagnoses CIDP (chronic inflammatory demyelinating polyneuropathy) ([facility]) Procedures [place] INJ IVIG PRIVIGEN 500 MG John Dodge, DO [address] [place] [address] Anc Hem/Onc [address] [place] [address] Referral ID Status Reason Start Date Expiration Date V isits Requested Visits Authorized [id number] Authorized 03/16/2023 03/16/[phone] Encounter Details Date Type Department Care Team (Latest Contact Info) Description 05/07/2023 9:00 AM EST Hem/Onc Treatment Hematology/Oncolog y Treatment, [place] [address] [place] [address] [place], Chair 3 Hem Onc Scene 200 [facility] [place] [address] CIDP (chronic inflammatory demyelinating polyneuropathy) ([facility])* Allergies Active Allergy Reactions Criticality Noted Date Comments Amoxicillin Rash 07/17/2011 documented as of this encounter (statuses as of 05/07/2023) Medications Medication Sig Dispensed Refills Start Date [...] B-2)Indications:CIDP (chronic inflammatory demyelinating polyneuropathy) ([facility] [...] Respimat 2.5 MCG/ACT Inhalation Aerosol Solution (Tiotropium [place] Monohydrate)Indicati ons:Severe persistent asthma without complication Inhale [...] as of this encounter (statuses as of 05/07/2023) Active Problems Problem Noted Date Diagnosed Date [...] as of this encounter (statuses as of 05/07/2023) Resolved Problems Problem Noted Date Diagnosed Date Resolved Date Wedge compression fracture o f unspecified lumbar vertebra, initial encounter for closed fracture 09/06/2022 09/06/2022 Compression of lumbar vertebra 11/18/2020 01/20/2021 Asthma, moderate persistent 08/29/2011 10/16/2011 Asthma exacerbation 07/17/2011 05/13/20 12 documented as of this encounter (statuses as of 05/07/2023) Immunizations Name Administration Dates Next Due COVID-19 [...] Sign Reading Time Taken Comments Blood Pressure 144/85 05/07/2023 9:15 AM EST Pulse 69 05/07/2023 9:15 AM EST Temperature 36.4 C (97.6 F) 05/07/2023 9:15 AM ES T Respiratory Rate 18 05/07/2023 9:15 AM EST Oxygen Saturation 97% 05/07/2023 9:15 AM EST Inhaled Oxygen Concentration - - Weight - - Height - - Body Mass Index - - documented in this encounter Nursing Notes * Linsey Haq RN - 05/07/2023 12:33 PM EST Goals: Patient will remain free from injury. Possible barriers to meeting goals: ambulation with IV pole Stability of the patient: Moderately unstable - medium risk of patient condition declining or worsening Summary regarding today's goals: Met: Pt remained free of injury during treatment. Patient tolerated treatment well and was discharged in stable condition. IV site remains intact fortomorrow. Coverage by A Duglas RN. * Linsey Haq RN - 05/07/2023 9:53 AM EST Chair 8 Pt arrives for day 1 of privigen, ambulating with cane. He states he's doing well. He denies any acute complaints or concerns, states BP has been "pretty good" when checked at home. IV started in theright forearm without difficulty, good blood return noted, flushed with NSS, fluids infusing. Safety and Risk for Injury Patient will remain free from injury. Ensure appropriate safety devices are available. Provide and maintain safe environment. documented in this encounter Plan of Treatment Upcoming Encounters Date Type Department Care Team (Late st Contact Info) Description 05/08/2023 9:00 AM EST Hem/Onc Treatment Hematology/Oncology [address], [address] [address] [place], Chair 2 Hem Onc [address] [place] [address] 05/09/2023 1:00 PM EST Hem/Onc Treatment Hematology/Oncology Treatment, [address] [address] [place], Chair 8 Hem Onc [facility] [address] [place] [address] [facility] [place] [address] 05/10/2023 9:00 AM EST Hem/Onc Treatment Hematology/Oncology Treatment, [address] [address] [place], Chair 3 Hem Onc [facility] [address] [place] [address] [facility] [place] [address] 05/11/2023 3:00 PM EST Office Visit [address] [phone] Ruel Fajardo MD [address] [place] [address] [place] [address] 05/14/2023 1:00 PM EST Nurse Only Pulmonary Medicine, [facility] [address] [facility] [place] [address] Gw, Nurse Pulmonary 132 [facility] [place] [address] 06/04/2023 9:00 AM EST Hem/Onc Treatment Hematology/Oncology Treatment, [place] [facility] [address] [place], Chair 3 Hem Onc Scenery 200 [facility] [place] [address] 06/05/2023 9:30 AM EST Hem/Onc Treatment Hematology/Oncology Treatment, [place] 200 [facility] [address] 06/06/2023 9:00 AM EST Hem/Onc Treatment Hematology/Oncology Treatment, [place] 200 [facility] [address] [place], Chair 6 Hem Onc Scenery 200 [facility] [place] [address] 06/07/2023 9:00 AM EST Hem/Onc Treatment Hematology/Oncology Treatment, [place] 200 [facility] [address] [place], Chair 3 Hem Onc Scenery 200 [facility] [place] [address] 07/24/2023 1:40 PM EST Office Visit Neurology [facility] [place] [address] [place] [address] John oDdge, DO [address] [place] [address] 10/19/2023 11:15 AM EDT Office Visit Otolaryngology [facility] [address] [place] [address] Martita Gaston MD 132 [place] [address] 11/20/2023 1:30 PM EDT Office Visit [facility] [place] [address] Adriel Montalvo MD 200 [facility] [place] [address] Scheduled Procedures Name Priority Associated Diagnoses Date/Ti [...] D LEVEL ONCE IN A LIFETIME-USE SMARTSET# [id number] Completed 11/18/2020 Influenza Vaccine (FLU shot) Completed [...] ONCE PRN Other, Hypersensitivity Reaction, Starting on Sun05/07/23 at 0914, Until Sun05/08/23 at 09, For 24 hours EPINEPHrine 1 MG/ML inj 0.3 mg 0.3 mg, Intramuscular, ONCE PRN Other, Hypersensitivity Reaction or Anaphylaxis, Starting on Sun05/07/23 at 0914, Until Sun05/08/23 at 09, For 24 hours hEParin 100 UNIT/ML Lock Flush inj 500 Units 500 Units (5 mL), IV Lock, PRN Other, IV Flush, Starting on Sun05/07/23 at 0914, Until Sun05/08/23 at 09, For 24 hours, Do not flush if lock, PICC, or central line not in place; IV infusing or unable to flush. Given 05/07/2023 11:41 AM EST 500 Units Hydrocortisone Sod Suc (PF) (Solu-Cortef) inj 100 mg 100 mg, IV Push, ONCE PRN Other, Hypersensitivity Reaction, Starting on Sun05/07/23 at 0914, Until Sun05/08/23 at 09, For 24 hours NSS infusion 500 mL, Intravenous, at 50 mL/hr, CONTINUOUS, Starting on Sun05/07/23 at 1015, Until Sun05/07/23 at 2014 Start Infusion 05/07/2023 9:25 AM EST 500 mL 50 mL/hr sodium chloride 0.9 % flush central line 10 mL 10 mL, IV Push, PRN Other, IV Flush, Starting on Sun05/07/23 at 0914, Until Sun05/08/23 at 0913, For 24 hours, Do not flush if lock, PICC, or central line not in place; IV infusing or unable to flush. Given 05/07/2023 11:41 AM EST 10 mL Inactive Administered Medications - up to 3 most recent administrations Medication Order MAR Action Action Date Dose Rate Site Acetaminophen (Tylenol) tab 650 mg 650 mg, Oral, ONCE, On Sun05/07/23 at 1015, For 1 dose, Maximum of 4 grams (4000 mg) per day. Given 05/07/2023 9:30 AM EST 650 mg diphenhydrAMINE (Benadryl) cap 25 mg 25 mg, Oral, ONCE, On Sun05/07/23 at 1015, For 1 dose Given 05/07/2023 9:30 AM EST 25 mg Immune Globulin Human-IVIG 10% (Privigen) IV 40 g 40 g, IV Piggyback, ONCE, 1 dose, On Sun05/07/23 at 1045, Total dose = 45 gm [...] Infusion duration = 1.8 hours Rate Change 05/07/2023 10:45 AM EST 423 mL/hr Start Infusion 05/07/2023 10:32 AM EST 40 g 212 mL/h r Immune Globulin Human-IVIG 10% (Privigen) IV 5 g 5 g, IV Piggyback, ONCE, 1 dose, On Sun05/07/23 at 1015, Total dose = 45 gm [...] Infusion duration = 1.8 hours Rate Change 05/07/2023 10:30 AM EST 212 mL/hr Rate Change 05/07/2023 10:15 AM EST 106 mL/hr Rate Change 05/07/2023 10:00 AM EST 53 mL/hr documented in this encounter Care Teams Tile Mechanic Helper Relationship Specialty Start Date End Date Ruel Fajardo MD [address] [place] [address] [place] [address] PCP - General Family Medicine 10/17/19 documented as of this encounter
--- OUTSIDE RECORDS SUMMARY | 2023-09-12 10:52 | External Medical Summary | Summary of Care ---
Author Name Unknown Organization [facility] Address [address] [facility] [place] [address] Phone [phone] Care Team Providers Care Fire Prevention Chief Name Role Phone Ruel Fajardo MD Primary Care Provide r Reason for Visit * Reason Comments EMG Encounter Details Date Type Department Care Team (Late st Contact Info) Description 04/24/2023 11:45 AM EDT NeuroDiagnostic Study Neurophysiology [facility] 200 [facility] [place] [address] Amy Maxwell MD 200 [place] [address] Allergies Active Allergy Reactions Criticality Noted Date Comments Amoxicillin Rash 07/17/2011 documented as of this encounter (statuses as of 04/24/2023) Medications Medication Sig Dispensed Refills Start Date [...] (vitamin B-2)Indications:CIDP (chronic inflammatory demyelinating polyneuropathy) ([facility] [...] Capsule (Neurontin)Indicatio ns:CIDP (chronic inflammatory demyelinating polyneuropathy) ([facility] [...] Respimat 2.5 MCG/ACT Inhalation Aerosol Solution (Tiotropium [place] Monohydrate)Indicati ons:Severe persistent asthma without complication Inhale [...] as of this encounter (statuses as of 04/24/2023) Active Problems Problem Noted Date Diagnosed Date [...] as of this encounter (statuses as of 04/24/2023) Resolved Problems Problem Noted Date Diagnosed Date Resolved Date Wedge compression fracture o f unspecified lumbar vertebra, initial encounter for closed fracture 09/06/2022 09/06/2022 Compression of lumbar vertebra 11/18/2020 01/20/2021 Asthma, moderate persistent 08/29/2011 10/16/2011 Asthma exacerbation 07/17/2011 05/13/20 12 documented as of this encounter (statuses as of 04/24/2023) Immunizations Name Administration Dates Next Due COVID-19 [...] on file documented as of this encounter Progress Notes * Amy Maxwell MD - 04/24/2023 1:02 PM EDT Images from the original note were not included. Neurophysiology Department [place], [place] Test Date: 04/24/2023 Patient: Theron Gao : 1955 Physician: Amy Maxwell MD Sex: Male Height: ' " Ref Phys: John Dodge DO ID#: [id number] Weight: lbs. 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 The left peroneal motor response [...] proximal left lower or left upper extremity Amy Maxwell MD NCS+ Motor Nerve Results Latency Amplitude Segment Distance Velocity Min F-Lat Temperature Site (ms) Norm (mV) Norm cm m/s Norm (ms) Norm C Left Dp Branch Fibular (TA) Motor Bel Fib Head 2.7 < 6.9 0.96 > 5.1 Bel Fib Head-Tib Anterior 10 - Pop Fossa 5.1 - 0.74 - Pop Fossa-Bel Fib Head 10 42 - - Left Fibular (with F) Ankle NR < 6.7 NR > 2.0 Ankle-EDB 8.5 - Left Median (with F) Wrist 4.5 < 4.6 6.0 > 4.0 Wrist-APB 7 34.5 < 32.0 - Elbow 9.2 - 5.0 - Elbow-Wrist 25 53 > 49 - Left Tibial (with F) Ankle 7.4 < 6.2 0.24 > 4.0 Ankle-AHB 8 NR < 58.0 - Pop Fossa 18.9 - 0.37 - Pop Fossa-Ankle 36 31 > 41 - Left Ulnar (with F) Wrist 2.7 < 3.7 6.3 > 6.0 Wrist-ADM 6.5 24.0 < 32.0 - Bel Elbow 6.7 - 5.9 - Bel Elbow-Wrist 23 58 > 52 - Abv Elbow 9.3 - 5.6 - Abv Elbow-Wrist - - - - Motor Segments Delta-O Distance CV Segment (ms) (cm) (m/s) Norm Left Dp Branch Fibular (TA) Motor Bel Fib Head-Tib Anterior 10 Pop Fossa-Bel Fib Head 2.4 10 42 - Left Fibular (with F) Ankle-EDB 8.5 Left Median (with F) Wrist-APB 7 Elbow-Wrist 4.7 25 53 > 49 Left Tibial (with F) Ankle-AHB 8 Pop Fossa-Ankle 11.5 36 31 > 41 Left Ulnar (with F) Wrist-ADM 6.5 Bel Elbow-Wrist 4.0 23 58 > 52 Abv Elbow-Bel Elbow 2.6 10 38 - Abv Elbow-Wrist 6.6 - - - Sensory Nerve Results Latency (Peak) Amplitude ( O-P ) Segment Distance Temperature Site (ms) Norm (V) Norm (cm) C Left Median-Ulnar Palmar Sensory Median Palm-Wrist 3.1 < 2.4 6 > 50 Palm-Wrist 8 - Ulnar Palm-Wrist 2.1 < 2.4 5 > 15 Palm-Wrist 8 - Left Radial Sensory Forearm-Snuff Box 2.2 < 3.0 8 > 20 Forearm-Snuff Box 10 - Left Sural Sensory Calf-Lat Mall NR < 4.6 NR > 6 Calf-Lat Mall 14 - Right Sural Sensory Calf-Lat Mall NR < 4.6 NR > 6 Calf-Lat Mall 14 - Inter-Nerve Comparisons Nerve 1 Value 1 Nerve 2 Value 2 Parameter Result Normal Sensory Sites L Median Palm-Wrist 3.1 ms L Ulnar Palm-Wrist 2.1 ms Peak Lat Diff 1.0 ms <0.30 EMG+ Side Muscle Root Ins Act Fibs Fasic Others Poly Dur Amp Recrt Activation Commt Left APB C8-T1 NL 0 0 None 1+ NL NL NL NL Left EIP C7-C8 NL 0 0 None 0 NL NL NL NL Left FDI C8-T1 NL 0 0 None 2+ NL NL NL NL Left FCR C6-C7 NL 0 0 None 0 NL NL NL NL Left FCU C8-T1 NL 0 0 None 3+ NL NL NL Fair Left Biceps C5-C6 NL 0 0 None 1+ NL 2+ NL NL Left Triceps C6-C8 NL 0 0 None 1+ NL NL NL NL Left Gastroc LH S1-S2 NL 0 0 None 0 NL NL NL NL Left Tib Anterior L4-L5 Incr 0 0 None 2+ NL 1+ Reduced Poor Left Vastus Lat L2-L4 NL 0 0 None 1+ NL NL NL Fair Left Gastroc MH S1-S2 NL 0 0 None 0 NL NL NL 2 MUP documented in this encounter Plan of Treatment Upcoming Encounters Date Type Department Care Team (Late st Contact Info) Description 05/07/2023 9:00 AM EST Hem/Onc Treatment Hematology/Oncology Treatment, [address] [place] [address] [place], Chair 3 Hem Onc Scenery [address] [place] [address] 05/08/2023 9:00 AM EST Hem/Onc Treatment Hematology/Oncology Treatment, [address], [place] [address] [place], Chair 2 Hem Onc Scenery 200 [facility] [place] [address] 05/09/2023 1:00 PM EST Hem/Onc Treatment Hematology/Oncology Treatment, [place] 200 [facility], [place] [address] [place], Chair 8 Hem Onc Scenery 200 [facility] [place] [address] 05/10/2023 9:00 AM EST Hem/Onc Treatment Hematology/Oncology Treatment, [address], [place] [address] [place], Chair 3 Hem Onc Scenery [address] [place] [address] 05/11/2023 3:00 PM EST Office Visit Family Medicine [address] [place] [phone] Ruel Fajardo MD [address] [place] [address] [place] [address] 05/14/2023 1:00 PM EST Nurse Only Pulmonary Medicine, [address] [place] [address] Gw, Nurse Pulmonary 132 [facility] [place] [address] 07/24/2023 1:40 PM EST Office Visit Neurology [facility] [address] [place] [address] John Dodge DO 200 [facility] [place] [address] 10/19/2023 11:15 AM EDT Office Visit Otolaryngology [facility] [address] [employer] [place] [address] Martita Gaston MD 132 [facility] [place] [address] 11/20/2023 1:30 PM EDT Office Visit Allergy/Immunology [facility] [address] [place] [address] Adriel Montalvo MD 200 [facility] [place] [address] Scheduled Procedures Name Priority Associated Diagnoses Date/Ti [...] D LEVEL ONCE IN A LIFETIME-USE SMARTSET# [id number] Completed 11/18/2020 Influenza Vaccine (FLU shot) Completed , 05/15/2022, 06/09/2021, Additional history exists GARDASIL-HPV IMMUNIZATION SERIES Aged Out No longer eligible based on patient's age to complete this topic MENINGOCOCCAL (MENACTRA/MENVEO) Aged Out No longer eligible based on patient's age to complete this topic documented as of this encounter Medical Devices Not on filedocumented as of this encounter Visit Diagnoses Diagnosis Polyneuropathy, peripheral sensorimotor axonal- Primary Other specified idiopathic peripheral neuropathy Carpal tunnel syndrome of left wrist Carpal tunnel syndrome Ulnar neuropathy at elbow of left upper extremity Cervical radiculopathy Brachial neuritis or radiculitis nos documented in this encounter Care Teams Fire Prevention Chief Relationship Specialty Start Date End Date Ruel Fajardo MD [address] [place] [address] [place] [address] PCP - General Family Medicine 10/17/19 documented as of this encounter
--- OUTSIDE RECORDS SUMMARY | 2023-09-12 10:53 | External Medical Summary | Summary of Care ---
Author Name Unknown Organization [facility] Address [address] [facility] [place] [address] Phone [phone] Care Team Providers Care Rn Ante Partum Name Role Phone Ruel Fajardo MD Primary Care Provide r Reason for Visit * Reason Onset Date Comments Medication Refill 04/09/2023 Encounter Details Date Type Department Care Team Description 04/09/2023 Refill Family Medicine [address] [place] [id number] Ruel Fajardo MD [address] [place] [address] [place] [address] Weakness of both legs; Numbness and tingling of foot; Lumbar compression fracture (HCC) Allergies Active Allergy Reactions Severity Noted Date Comments Amoxicillin Rash 07/17/2011 documented as of this encounter (statuses as of 04/10/2023) Medications Medication Sig Dispensed Refills Start Date [...] (vitamin B-2)Indications:CONSUELO P (chronic inflammatory demyelinating polyneuropathy) ([facility] [...] Capsule (Neurontin)Indicati ons:CIDP (chronic inflammatory demyelinating polyneuropathy) ([facility] [...] Respimat 2.5 MCG/ACT Inhalation Aerosol Solution (Tiotropium [place] Monohydrate)Indicat ions:Severe persistent asthma without complication Inhale [...] MUSCLE SPASM 30 Tablet 1 04/10/2023 Active Cyclobenzaprine HCl 5 MG Oral Tablet (Flexeril)Indicatio ns:Weakness of both legs,Numbness and tingling of foot,Lumbar compression fracture (HCC) TAKE ONE TABLET BY MOUTH TWICE DAILY NEEDED FOR MUSCLE SPASM 30 Tablet 1 02/14/2023 3 Discontinu ed(Refill) Hospital, Clinic, or Other Facility Administered Medication Ordered Dose Route Frequency Start Date End Date Status Mepolizumab (Nucala) inj 100 mgIndications:Severe persistent asthma without complication 100 mg SC [id number] 05/15/2022 04/16/2023 Acti ve Albuterol Sulfate (Proventil) (2.5 MG/3ML) 0.083% inhalation solution 2.5 mgIndications:Severe persistent asthma without complication 2.5 mg NEBULIZER PRN 09/20/2022 09/20/2023 Acti ve Albuterol Sulfate (Proventil) (5 MG/ML) 0.5% *conc* inhalation solution 2.5 mgIndications:Severe persistent asthma without complication 2.5 mg NEBULIZER PRN 09/20/2022 09/20/2023 Acti ve documented as of this encounter (statuses as of 04/10/2023) Active Problems Problem Noted Date Mild aortic [...] as of this encounter (statuses as of 04/10/2023) Resolved Problems Problem Noted Date Resolved Date Wedge compression fracture o f unspecified lumbar vertebra, initial encounter for closed fracture 09/06/2022 09/06/2022 Compression of lumbar vertebra 11/18/2020 0 01/20/2021 Asthma, moderate persistent 08/29/201109/24 Asthma exacerbation 07/17/2011 05/13/2012 documented as of this encounter (statuses as of 04/10/2023) Immunizations Name Administration Dates Next Due COVID-19 [...] Telephone Encounter - Mandy Leos MD - 04/10/2023 11:40 AM EDTSigned Prescriptions: Disp Refills Cyclobenzaprine HCl 5 MG Oral Tablet (Flex*30 Tab*1 Sig: TAKE ONE TABLET BY MOUTH TWICE DAILY NEEDED FOR MUSCLE SPASM Authorizing Provider: MANDY LEOS * Telephone Encounter - [facility] - 04/10/2023 11:31 AM EDTPending Prescriptions: Disp Refills Cyclobenzaprine HCl 5 MG Oral Tablet (Flex*30 Tab*1 Sig: TAKE ONE TABLET BY MOUTH TWICE DAILY NEEDED FOR MUSCLE SPASM * Telephone Encounter - Philomena Joy RP - 04/10/2023 11:31 AM EDT [facility] is currently not authorized to approve refills for the pended medication(s) per refill protocol. Please approve if appropriate. Thanks, Philomena Joy, PharmD Clinical Pharmacist Centralized Clinical Pharmacy Services ([facility]) (formerly [facility]) [phone] 04/10/2023 11:31 AM * Telephone Encounter - [facility] - 04/10/2023 11:31 AM EDT Pending Prescriptions: Disp Refills Cyclobenzaprine HCl 5 MG Oral Tablet (Fle*30 Tab*1 Sig: TAKE ONE TABLET BY MOUTH TWICE DAILY NEEDED FOR MUSCLE SPASM Last Visit: 02/20/2023 (in office), 04/28/2021 (telemedicine) Next Visit: 05/11/2023 If no future appointments scheduled, and last appointment is greater than a year ago, please schedule patient for a follow-up appointment Last date the medication was ordered: 02/14/23 [facility] [address] [place] Is this request for [...] 12:47 PM HGBA1C 4.9 02/20/2022 12:35 PM Electronically signed by [facility] at 04/10/2023 11:31 AM EDT documented in this encounter Plan of Treatment Upcoming Encounters Date Type Specialty Care Team Description 04/11/2023 Hem/Onc Treatment Hematology [place], Chair 3 Hem Onc Scenery [address] [place] [address] 04/12/2023 Hem/Onc Treatment H[facility]ology [place], Chair 6 Hem Onc Scenery [address] [place] [address] 04/12/2023 Nurse Only Pulmonary Gw, Nurse Pulmonary 132 [place] [address] 04/24/2023 NeuroDiagnostic Study Neurophysiology Amy Maxwell MD [address] [place] [address] 05/07/2023 Hem/Onc Treatment H[facility]ology [place], Chair 3 Hem Onc Scenery [address] [place] [address] 05/08/2023 Hem/Onc Treatment H[facility]ology [place], Chair 2 Hem Onc Scenery [address] [place] [address] 05/09/2023 Hem/Onc Treatment H[facility]ology [place], Chair 8 Hem Onc Scenery [address] [place] [address] 05/10/2023 Hem/Onc Treatment H[facility]ology [place], Chair 3 Hem Onc Scenery [address] [place] [address] 05/11/2023 Office Visit Family Medicine Ruel Fajardo MD [address] [place] [address] [place] [address] 07/24/2023 Office Visit Neurology John Dodge DO [address] [place] [address] 10/19/2023 Office Visit Otolaryngology Martita Gaston MD [address] [place] [address] 11/20/2023 Office Visit Allergy & Immunology Adriel Montalvo MD [address] [place] [address] Scheduled Procedures Name Priority Associated Diagnoses Date/Ti [...] D LEVEL ONCE IN A LIFETIME-USE SMARTSET# 01933 Completed 11/18/2020 Influenza Vaccine (FLU shot) Completed [...] injury documented in this encounter Care Teams Rn Ante Partum Relationship Specialty Start Date End Date Ruel Fajardo MD [address] [place] [address] [place] [address] PCP - General Family Medicine 10/17/19 documented as of this encounter
--- OUTSIDE RECORDS SUMMARY | 2023-09-12 10:53 | External Medical Summary | Summary of Care ---
Author Name Unknown Organization [facility] [address] [facility] [address] Phone [phone] Care Team Providers Care Vp Cardiovascular Name Role Phone Ruel Fajardo MD Primary Care Provide r Reason for Visit * Reason Comments Follow Up Encounter Details Date Type Department Care Team Description 04/06/2023 Telemedicine Orthopaedics [facility] [address] [place] [address] Bong Mandel MD [address] [place] [phone] Olecranon bursitis of left elbow* Allergies Active Allergy Reactions Severity Noted Date Comments Amoxicillin Rash 07/17/2011 documented as of this encounter (statuses as of 04/06/2023) Medications Medication Sig Dispensed Refills Start Date [...] Respimat 2.5 MCG/ACT Inhalation Aerosol Solution (Tiotropium [place] Monohydrate)Indicati ons:Severe persistent asthma without complication Inhale 2 Puffs by mouth in the morning. 12 g 2 02/07/2023 Active Cyclobenzaprine HCl 5 MG Oral Tablet (Flexeril)Indication s:Weakness of both legs,Numbness and tingling of foot,Lumbar compression fracture (HCC) TAKE ONE TABLET BY MOUTH TWICE DAILY NEEDED FOR MUSCLE SPASM 30 Tablet 1 02/14/2023 Active Montelukast Sodium 10 MG Oral Tablet [...] FOR WHEEZE 8.5 g 5 03/23/2023 Active Hospital, Clinic, or Other Facility Administered Medication Ordered Dose Route Frequency Start Date End Date Status Mepolizumab (Nucala) inj 100 mgIndications:Severe persistent asthma without complication 100 mg SC [id number] 05/15/2022 04/16/2023 Acti ve Albuterol Sulfate (Proventil) (2.5 MG/3ML) 0.083% inhalation solution 2.5 mgIndications:Severe persistent asthma without complication 2.5 mg NEBULIZER PRN 09/20/2022 09/20/2023 Acti ve Albuterol Sulfate (Proventil) (5 MG/ML) 0.5% *conc* inhalation solution 2.5 mgIndications:Severe persistent asthma without complication 2.5 mg NEBULIZER PRN 09/20/2022 09/20/2023 Acti ve documented as of this encounter (statuses as of 04/06/2023) Active Problems Problem Noted Date Mild aortic [...] as of this encounter (statuses as of 04/06/2023) Resolved Problems Problem Noted Date Resolved Date Wedge compression fracture o f unspecified lumbar vertebra, initial encounter for closed fracture 09/06/2022 09/06/2022 Compression of lumbar vertebra 11/18/2020 0 01/20/2021 Asthma, moderate persistent 08/29/201109/24 Asthma exacerbation 07/17/2011 05/13/2012 documented as of this encounter (statuses as of 04/06/2023) Immunizations Name Administration Dates Next Due COVID-19 [...] as of this encounter Progress Notes * Bong Mandel MD - 04/06/2023 3:44 PM EDT After connecting to the patient via telephone, the patient was identified by name and date of . Patient was then informed that this was a telephone call only visit. The patient agreed to participate. Visit Disposition: Routine follow-up Assessment M70.22 Olecranon bursitis of left elbow (primary encounter diagnosis) Patient states that his elbow swelling has improved. Denies any pain denies any issues with the elbow at this time. He states his symptoms have completely resolved. At this time we recommend that he return to all activities as tolerated. Patient was instructed on using a elbow pad for protection. We will see him back in the office as needed. We answered all his questions to the best of our abilities today. Total call duration was less than 5 minutes. Bong Mandel MD Orthopaedics [facility] [address] [facility] [place] [address] Orthopedic Sports Medicine Surgery documented in this encounter Plan of Treatment Upcoming Encounters Date Type Specialty Care Team Description 04/09/2023 Hem/Onc Treatment H[facility]ology [place], Chair 3 Hem Onc Scenery [address] [place] [id number] 04/10/2023 Hem/Onc Treatment H[facility]ology [place], Chair 3 Hem Onc Scenery [address] [place] [address] 04/11/2023 Hem/Onc Treatment H[facility]ology [place], Chair 3 Hem Onc Scenery [address] [place] [address] 04/12/2023 Hem/Onc Treatment H[place]ology [place], Chair 6 Hem Onc Scenery [address] [place] [address] 04/12/2023 Nurse Only Pulmonary Gw, Nurse Pulmonary [address] [facility] [place] [address] 04/23/2023 Office Visit Family Medicine Ruel Fajardo MD [address] [place] [address] [place] [address] 04/24/2023 NeuroDiagnostic Study Neurophysiology Amy Maxwell MD [address] [place] [address] 07/24/2023 Office Visit Neurology John Dodge DO [address] [place] [address] 10/19/2023 Office Visit Otolaryngology Martita Gaston MD [address] [place] [address] 11/20/2023 Office Visit Allergy & Immunology Adriel Montalvo MD [address] [place] [address] Scheduled Procedures Name Priority Associated Diagnoses Date/Ti [...] D LEVEL ONCE IN A LIFETIME-USE SMARTSET# [id number] Completed 11/18/2020 Influenza Vaccine (FLU shot) Completed , 05/15/2022, 06/09/2021, Additional history exists GARDASIL-HPV IMMUNIZATION SERIES Aged Out No longer eligible based on patient's age to complete this topic MENINGOCOCCAL (MENACTRA/MENVEO) Aged Out No longer eligible based on patient's age to complete this topic documented as of this encounter Medical Devices Not on filedocumented as of this encounter Visit Diagnoses Diagnosis Olecranon bursitis of left elbow- Primary Olecranon bursitis documented in this encounter Care Teams Vp Cardiovascular Relationship Specialty Start Date End Date Ruel Fajardo MD [address] [place] [address] [place] [address] PCP - General Family Medicine 10/17/19 documented as of this encounter
--- OUTSIDE RECORDS SUMMARY | 2023-09-12 10:53 | External Medical Summary | Summary of Care ---
Author Name Unknown Organization [facility] Address [address] [facility] [place] [address] Phone [phone] Care Team Providers Care Fisher Sponge Hooking Name Role Phone Ruel Fajardo MD Primary Care Provide r Reason for Visit * Reason Comments IV Therapy Privigen D1/4 * Episode Based Medications (Routine) - Authorized Specialty Diagnoses / Procedures Referred By Contac t Referred To Contact Diagnoses CIDP (chronic inflammatory demyelinating polyneuropathy) ([facility]) Procedures [place] INJ IVIG PRIVIGEN 500 MG John Dodge, DO [address] [place] [address] Anc Hem/Onc [address] [place] [phone] Referral ID Status Reason Start Date Expiration Date V isits Requested Visits Authorized [id number] Authorized 03/16/2023 03/16/2024 999 999 Encounter Details Date Type Department Care Team Description 04/09/2023 Hem/Onc Treatment Hematology/Oncology Treatment, [place] [address] [facility] [place] [address] [place], Chair 3 Hem Onc [facility] [address] [facility] [place] [address] CIDP (chronic inflammatory demyelinating polyneuropathy) ([facility])* Allergies Active Allergy Reactions Severity Noted Date Comments Amoxicillin Rash 07/17/2011 documented as of this encounter (statuses as of 04/09/2023) Medications Medication Sig Dispensed Refills Start Date [...] Respimat 2.5 MCG/ACT Inhalation Aerosol Solution (Tiotropium [place] Monohydrate)Indicati ons:Severe persistent asthma without complication Inhale [...] persistent asthma without complication 100 mg SC [id number] 05/15/2022 04/16/2023 Acti ve Albuterol Sulfate (Proventil) (2.5 MG/3ML) 0.083% inhalation solution 2.5 mgIndications:Severe persistent asthma without complication 2.5 mg NEBULIZER PRN 09/20/2022 09/20/2023 Acti ve Albuterol Sulfate (Proventil) (5 MG/ML) 0.5% *conc* inhalation solution 2.5 mgIndications:Severe persistent asthma without complication 2.5 mg NEBULIZER PRN 09/20/2022 09/20/2023 Acti ve documented as of this encounter (statuses as of 04/09/2023) Active Problems Problem Noted Date Mild aortic [...] as of this encounter (statuses as of 04/09/2023) Resolved Problems Problem Noted Date Resolved Date Wedge compression fracture o f unspecified lumbar vertebra, initial encounter for closed fracture 09/06/2022 09/06/2022 Compression of lumbar vertebra 11/18/2020 0 01/20/2021 Asthma, moderate persistent 08/29/201109/24 Asthma exacerbation 07/17/2011 05/13/2012 documented as of this encounter (statuses as of 04/09/2023) Immunizations Name Administration Dates Next Due COVID-19 [...] Sign Reading Time Taken Comments Blood Pressure 121/86 04/09/2023 9:15 AM EDT Pulse 76 04/09/2023 9:15 AM EDT Temperature 37 C (98.6 F) 04/09/2023 9:15 AM EDT Respiratory Rate 18 04/09/2023 9:15 AM EDT Oxygen Saturation 95% 04/09/2023 9:15 AM EDT Inhaled Oxygen Concentration - - Weight - - Height - - Body Mass Index - - documented in this encounter Nursing Notes * Linsey Haq RN - 04/09/2023 1:01 PM EDT Goals: Patient will remain free from injury. Possible barriers to meeting goals: ambulation with IV pole, use of cane, benadryl pretreat may cause drowsiness, history of falls Stability of the patient: Moderately unstable - medium risk of patient condition declining or worsening Summary regarding today's goals: Met: Pt remained free of injury during treatment today Patient tolerated treatment well and was discharged in stable condition. IV site remains intact fortomorrow. Coverage by Satish Garcia LPN. * Linsey Haq RN - 04/09/2023 10:59 AM EDT Chair 6 Pt arrives for privigen. He states he's doing well. He denies any acute concerns or complaints. IV started in the right forearm without difficulty, good blood return noted, flushed with NSS, fluids infusing. Safety and Risk for Injury Patient will remain free from injury. Ensure appropriate safety devices are available. Provide and maintain safe environment. documented in this encounter Plan of Treatment Upcoming Encounters Date Type Specialty Care Team Description 04/10/2023 Hem/Onc Treatment Hematology [place], Chair 3 Hem Onc Scenery [address] [place] [address] 04/11/2023 Hem/Onc Treatment H[place]ology [place], Chair 3 Hem Onc Scenery [address] [place] [address] 04/12/2023 Hem/Onc Treatment Hematology [place], Chair 6 Hem Onc Scenery [address] [place] [address] 04/12/2023 Nurse Only Pulmonary Gw, Nurse Pulmonary [address] [place] [address] 04/23/2023 Office Visit Family Medicine Ruel Fajardo MD [address] [place] [address] [place] [address] 04/24/2023 NeuroDiagnostic Study Neurophysiology Amy Maxwell MD [address] [place] [address] 05/07/2023 Hem/Onc Treatment Hematology [place], Chair 3 Hem Onc Scenery [address] [place], [place] [address] 05/08/2023 Hem/Onc Treatment Hematology [place], Chair 2 Hem Onc Scenery [address] [place] [address] 05/09/2023 Hem/Onc Treatment Hematology [place], Chair 4 Hem Onc Scenery [address] [place] [address] 05/10/2023 Hem/Onc Treatment Hematology Oncology [place], Chair 3 Hem Onc Scenery [address] [place], [place] [address] 07/24/2023 Office Visit Neurology John Dodge DO [address] [place] [address] 10/19/2023 Office Visit Otolaryngology Martita Gaston MD [address] [place] [address] 11/20/2023 Office Visit Allergy & Immunology Adriel Montalvo MD [address] [place] [address] Scheduled Procedures Name Priority Associated Diagnoses Date/Ti [...] D LEVEL ONCE IN A LIFETIME-USE SMARTSET# [id number] Completed 11/18/2020 Influenza Vaccine (FLU shot) Completed [...] ONCE PRN Other, Hypersensitivity Reaction, Starting on 04/09/23 at 0904, Until Sun04/10/23 at 0903, For 24 hours EPINEPHrine 1 MG/ML inj 0.3 mg 0.3 mg, Intramuscular, ONCE PRN Other, Hypersensitivity Reaction or Anaphylaxis, Starting on Sun04/09/23 at 0904, Until Sun04/10/23 at 0903, For 24 hours hEParin 100 UNIT/ML Lock Flush inj 500 Units 500 Units (5 mL), IV Lock, PRN Other, IV Flush, Starting on Sun04/09/23 at 0904, Until Sun04/10/23 at 0903, For 24 hours, Do not flush if lock, PICC, or central line not in place; IV infusing or unable to flush. Given 04/09/2023 11:31 AM EDT 500 Units Hydrocortisone Sod Suc (PF) (Solu-Cortef) inj 100 mg 100 mg, IV Push, ONCE PRN Other, Hypersensitivity Reaction, Starting on Sun04/09/23 at 0904, Until Sun04/10/23 at 0903, For 24 hours NSS infusion 500 mL, Intravenous, at 50 mL/hr, CONTINUOUS, Starting on Sun04/09/23 at 1015, Until Sun04/09/23 at 2013 Start Infusion 04/09/2023 9:12 AM EDT 500 mL 50 mL/hr sodium chloride 0.9 % flush central line 10 mL 10 mL, IV Push, PRN Other, IV Flush, Starting on Sun04/09/23 at 0904, Until Sun04/10/23 at 0903, For 24 hours, Do not flush if lock, PICC, or central line not in place; IV infusing or unable to flush. Given 04/09/2023 11:31 AM EDT 10 mL Inactive Administered Medications - up to 3 most recent administrations Medication Order MAR Action Action Date Dose Rate Site Acetaminophen (Tylenol) tab 650 mg 650 mg, Oral, ONCE, On Sun04/09/23 at 1015, For 1 dose, Maximum of 4 grams (4000 mg) per day. Given 04/09/2023 9:12 AM EDT 650 mg diphenhydrAMINE (Benadryl) cap 25 mg 25 mg, Oral, ONCE, On Sun04/09/23 at 1015, For 1 dose Given 04/09/2023 9:12 AM EDT 25 mg Immune Globulin Human-IVIG 10% (Privigen) IV 40 g 40 g, IV Piggyback, ONCE, 1 dose, On Sun04/09/23 at 1045, Total dose = 45 gm [...] Infusion duration = 1.8 hours Rate Change 04/09/2023 10:35 AM EDT 423 mL/hr Start Infusion 04/09/2023 10:18 AM EDT 40 g 212 mL/h r Immune Globulin Human-IVIG 10% (Privigen) IV 5 g 5 g, IV Piggyback, ONCE, 1 dose, On Sun04/09/23 at 1015, Total dose = 45 gm [...] Infusion duration = 1.8 hours Rate Change 04/09/2023 10:15 AM EDT 212 mL/hr Rate Change 04/09/2023 10:00 AM EDT 106 mL/hr Rate Change 04/09/2023 9:45 AM EDT 53 mL/hr documented in this encounter Care Teams Fisher Sponge Hooking Relationship Specialty Start Date End Date Ruel Fajardo MD [address] [place] [address] [place] [phone] PCP - General Family Medicine 10/17/19 documented as of this encounter
--- OUTSIDE RECORDS SUMMARY | 2023-09-12 10:53 | External Medical Summary | Summary of Care ---
Author Name Unknown Organization [facility] Address [address] [place] [address] Phone [phone] Care Team Providers Care Side Door Man Name Role Phone Ruel Fajardo MD Primary Care Provide r Reason for Visit * Reason Onset Date Comments Appointment 04/09/2023 Privigen infusio n-Dr. Dodge Encounter Details Date Type Department Care Team Description 04/09/2023 Telephone Hematology/Oncology [facility] [address] [place] [address] Services, Scheduling [address] [place] [address] Appointment (Privigen infusion-Dr. Dodge) Allergies Active Allergy Reactions Severity Noted Date [...] Tablet (vitamin B-2)Indications:CIDP (chronic inflammatory demyelinating polyneuropathy) ([facility]) Take by mouth 4 Tablets in [...] Capsule (Neurontin)Indicatio ns:CIDP (chronic inflammatory demyelinating polyneuropathy) ([facility] [...] Respimat 2.5 MCG/ACT Inhalation Aerosol Solution (Tiotropium [place] Monohydrate)Indicati ons:Severe persistent asthma without complication Inhale [...] persistent asthma without complication 100 mg SC [id number] 05/15/2022 04/16/2023 Acti ve Albuterol Sulfate (Proventil) [...] encounter Miscellaneous Notes * Telephone Encounter - Lyndsey Rust LPN - 04/09/2023 1:52 PM EDT TWIN Dodge-- patient rescheduling IVIG * Telephone Encounter - JOANN Ramirez - 04/09/2023 1:44 PM EDT Patients Gris called to reschedule Theron's infusion from 05/09 at 8:30 am. Please contact Gris at [phone] to reschedule. Thank you. documented in this encounter Plan of Treatment Upcoming Encounters Date Type Specialty Care Team Description 04/10/2023 Hem/Onc Treatment Hematology [place], Chair 3 Hem Onc Scenery [address] [place] [address] 04/11/2023 Hem/Onc Treatment Hematology [place], Chair 3 Hem Onc Scenery [address] [place] [address] 04/12/2023 Hem/Onc Treatment Hematology [place], Chair 6 Hem Onc Scenery [address] [place] [address] 04/12/2023 Nurse Only Pulmonary Gw, Nurse Pulmonary [address] [place] [address] 04/23/2023 Office Visit Family Medicine Ruel Fajardo MD [address] [place] [address] [place] [address] 04/24/2023 NeuroDiagnostic Study Neurophysiology Amy Maxwell MD [address] [place] [address] 05/07/2023 Hem/Onc Treatment Hematology [place], Chair 3 Hem Onc Scenery [address] [place] [address] 05/08/2023 Hem/Onc Treatment Hematology Oncology [place], Chair 2 Hem Onc Scenery [address] [place] [address] 05/09/2023 Hem/Onc Treatment Hematology Oncology [place], Chair 4 Hem Onc Scenery [address] [place] [address] 05/10/2023 Hem/Onc Treatment Hematology Oncology [place], Chair 3 Hem Onc Scenery [address] [place] [address] 07/24/2023 Office Visit Neurology John Dodge DO [address] [place] [address] 10/19/2023 Office Visit Otolaryngology Martita Gaston MD [address] [place] [address] 11/20/2023 Office Visit Allergy & Immunology Adriel Montalvo MD [address] [place] [address] Scheduled Procedures Name Priority Associated Diagnoses Date/Ti [...] D LEVEL ONCE IN A LIFETIME-USE SMARTSET# [id number] Completed 11/18/2020 Influenza Vaccine (FLU shot) Completed , 05/15/2022, 06/09/2021, Additional history exists GARDASIL-HPV IMMUNIZATION SERIES Aged Out No longer eligible based on patient's age to complete this topic MENINGOCOCCAL (MENACTRA/MENVEO) Aged Out No longer eligible based on patient's age to complete this topic documented as of this encounter Medical Devices Not on filedocumented as of this encounter Care Teams Side Door Man Relationship Specialty Start Date End Date Ruel Fajardo MD [address] [place] [address] [place] [address] PCP - General Family Medicine 10/17/19 documented as of this encounter
--- OUTSIDE RECORDS SUMMARY | 2023-09-12 10:53 | External Medical Summary | Summary of Care ---
Author Name Unknown Organization [facility] Address [address] [place] [address] Phone [phone] Care Team Providers Care Salad Chef Name Role Phone Ruel Fajardo MD Primary Care Provide r Reason for Visit * Reason Onset Date Comments Appointment 04/09/2023 Privigen infusio n-Dr. Dodge Encounter Details Date Type Department Care Team Description 04/09/2023 Telephone Hematology/Oncology [facility] [address] [place] [address] Services, Scheduling [address] [place] [address] Appointment (Privigen infusion-Dr. Dodge) Allergies Active Allergy [...] Respimat 2.5 MCG/ACT Inhalation Aerosol Solution (Tiotropium [place] Monohydrate)Indicati ons:Severe persistent asthma without complication Inhale [...] persistent asthma without complication 100 mg SC [id number] 05/15/2022 04/16/2023 Acti ve Albuterol Sulfate (Proventil) [...] at 8:30 am. Please contact Gris at [phone] to reschedule. Thank you. documented in this encounter Plan of Treatment Upcoming Encounters Date Type Specialty Care Team Description 04/10/2023 Hem/Onc Treatment [facility]ology [place] [place], Chair 3 Hem Onc Scenery [address] [place] [address] 04/11/2023 Hem/Onc Treatment [facility] [place] [place], Chair 3 Hem Onc Scenery [address] [place] [address] 04/12/2023 Hem/Onc Treatment [facility]ology [place] [place], Chair 6 Hem Onc Scenery [address] [place] [address] 04/12/2023 Nurse Only Pulmonary Gw, Nurse Pulmonary [address] [place] [address] 04/23/2023 Office Visit Family Medicine Ruel Fajardo MD [address] [place] [address] [place] [address] 04/24/2023 NeuroDiagnostic Study Neurophysiology Amy Maxwell MD [address] [place] [address] 05/07/2023 Hem/Onc Treatment H[facility]ology [place] [place], Chair 3 Hem Onc Scenery [address] [place] [address] 05/08/2023 Hem/Onc Treatment Hematology [facility]cology [place], Chair 2 Hem Onc Scenery [address] [place] [address] 05/09/2023 Hem/Onc Treatment Hematology [facility]cology [place], Chair 4 Hem Onc Scenery [address] [place] [address] 05/10/2023 Hem/Onc Treatment Hematology Oncology [place], Chair 3 Hem Onc Scenery [address] [place] [address] 07/24/2023 Office Visit Neurology John Dodge DO [address] [place] [address] 10/19/2023 Office Visit Otolaryngology Martita Gaston MD [address] [place] [address] 11/20/2023 Office Visit Allergy & Immunology Adriel Montalvo MD [address] [place] [address] Scheduled Procedures Name Priority Associated Diagnoses Date/Ti [...] D LEVEL ONCE IN A LIFETIME-USE SMARTSET# 65218 Completed 11/18/2020 Influenza Vaccine (FLU shot) Completed , 05/15/2022, 06/09/2021, Additional history exists GARDASIL-HPV IMMUNIZATION SERIES Aged Out No longer eligible based on patient's age to complete this topic MENINGOCOCCAL (MENACTRA/MENVEO) Aged Out No longer eligible based on patient's age to complete this topic documented as of this encounter Medical Devices Not on filedocumented as of this encounter Care Teams Salad Chef Relationship Specialty Start Date End Date Ruel Fajardo MD [address] [place] [address] [place] [address] PCP - General Family Medicine 10/17/19 documented as of this encounter
--- OUTSIDE RECORDS SUMMARY | 2023-09-12 10:53 | External Medical Summary | Summary of Care ---
Author Name Unknown Organization [facility] Address [address] [facility] [place] [address] Phone [phone] Care Team Providers Care Dispensary Technician Name Role Phone Ruel Fajardo MD Primary Care Provide r Reason for Visit * Reason Comments eRx-Medication Refill Encounter Details Date Type Department Care Team Description 04/09/2023 Refill Family Medicine [address] [place] [id number] Ruel Fajardo MD [address] [place] [address] [place] [address] Weakness of both legs; Numbness and tingling [...] B-2)Indications:CIDP (chronic inflammatory demyelinating polyneuropathy) ([facility]) Take by mouth 4 Tablets in [...] Respimat 2.5 MCG/ACT Inhalation Aerosol Solution (Tiotropium [place] Monohydrate)Indicati ons:Severe persistent asthma without complication Inhale [...] persistent asthma without complication 100 mg SC [id number] 05/15/2022 04/16/2023 Acti ve Albuterol Sulfate (Proventil) [...] * Telephone Encounter - Yohana Khoury - 04/10/2023 6:29 AM EDTRefused Prescriptions: Disp Refills Cyclobenzaprine HCl 5 MG Oral Tablet (Flex*30 Tab*1 Sig: TAKE ONE TABLET BY MOUTH TWICE DAILY NEEDED FOR muscle spasmRefused By: Mecca KHOURY for Refusal: Duplicate Request documented in this encounter Plan of Treatment Upcoming Encounters Date Type Specialty Care Team Description 04/10/2023 Hem/Onc Treatment Hematology [facility]cology [place], Chair 3 Hem Onc Scenery [address] [place] [address] 04/11/2023 Hem/Onc Treatment [facility] [place], Chair 3 Hem Onc Scenery [address] [place], [place] [address] 04/12/2023 Hem/Onc Treatment [facility] [place] [place], Chair 6 Hem Onc Scenery [address] [place] [address] 04/12/2023 Nurse Only Pulmonary Gw, Nurse Pulmonary [address] [place] [address] 04/23/2023 Office Visit Family Medicine Ruel Fajardo MD [address] [place] [address] [place] [address] 04/24/2023 NeuroDiagnostic Study Neurophysiology Amy Maxwell MD [address] [place] [address] 05/07/2023 Hem/Onc Treatment [facility]ology [place] [place], Chair 3 Hem Onc Scenery [address] [place] [address] 05/08/2023 Hem/Onc Treatment [facility]ology [place] [place], Chair 2 Hem Onc Scenery [address] [place] [address] 05/09/2023 Hem/Onc Treatment H[facility]ology [place], Chair 8 Hem Onc Scenery [address] [place] [address] 05/10/2023 Hem/Onc Treatment Hematology Oncology [place], Chair 3 Hem Onc Scenery [address] [place] [address] 07/24/2023 Office Visit Neurology John Dodge DO [address] [place] [address] 10/19/2023 Office Visit Otolaryngology Martita Gaston MD [address] [place] [address] 11/20/2023 Office Visit Allergy & Immunology Adriel Montalvo MD [address] [place] [address] Scheduled Procedures Name Priority Associated Diagnoses Date/Ti [...] D LEVEL ONCE IN A LIFETIME-USE SMARTSET# [id number] Completed 11/18/2020 Influenza Vaccine (FLU shot) Completed [...] injury documented in this encounter Care Teams Dispensary Technician Relationship Specialty Start Date End Date Ruel Fajardo MD [address] [place] [address] [place] [phone] PCP - General Family Medicine 10/17/19 documented as of this encounter
--- OUTSIDE RECORDS SUMMARY | 2023-09-12 10:53 | External Medical Summary | Summary of Care ---
Author Name Unknown Organization [facility] Address [address] [place] [address] Phone [phone] Care Team Providers Care Sheet Rock Sander Name Role Phone Ruel Fajardo MD Primary Care Provide r Reason for Visit * Reason Onset Date Comments Appointment 04/09/2023 Privigen infusio n-Dr. Dodge Encounter Details Date Type Department Care Team Description 04/09/2023 Telephone Hematology/Oncology [facility] [address] [place] [address] Services, Scheduling [address] [place] [address] Appointment (Privigen infusion-Dr. Dodge) Allergies Active Allergy [...] Respimat 2.5 MCG/ACT Inhalation Aerosol Solution (Tiotropium [place] Monohydrate)Indicati ons:Severe persistent asthma without complication Inhale [...] persistent asthma without complication 100 mg SC [id number] 05/15/2022 04/16/2023 Acti ve Albuterol Sulfate (Proventil) [...] encounter Miscellaneous Notes * Telephone Encounter - JOANN Walsh - 04/09/2023 2:22 PM EDT Spoke to , moved appt on the 15th to 1 pm. * Telephone Encounter - Lyndsey Rust LPN - 04/09/2023 1:52 PM EDT TWIN Dodge-- patient rescheduling IVIG * Telephone Encounter - JOANN Ramirez - 04/09/2023 1:44 PM EDT Patients Gris called to reschedule Theron's infusion from 05/09 at 8:30 am. Please contact Gris at [phone] to reschedule. Thank you. documented in this encounter Plan of Treatment Upcoming Encounters Date Type Specialty Care Team Description 04/10/2023 Hem/Onc Treatment Hematology [place] [place], Chair 3 Hem Onc Scenery [address] [place] [address] 04/11/2023 Hem/Onc Treatment H[facility]ology [place], Chair 3 Hem Onc Scenery [address] [place] [address] 04/12/2023 Hem/Onc Treatment H[facility]ology [place] [place], Chair 6 Hem Onc Scenery [address] [place] [address] 04/12/2023 Nurse Only Pulmonary Gw, Nurse Pulmonary [address] [place] [address] 04/23/2023 Office Visit Family Medicine Ruel Fajardo MD [address] [place] [address] [place] [address] 04/24/2023 NeuroDiagnostic Study Neurophysiology Amy Maxwell MD [address] [place] [address] 05/07/2023 Hem/Onc Treatment Hematology [place], Chair 3 Hem Onc Scenery [address] [place] [address] 05/08/2023 Hem/Onc Treatment H[facility]ology [place], Chair 2 Hem Onc Scenery [address] [place] [address] 05/09/2023 Hem/Onc Treatment H[facility]ology [place], Chair 8 Hem Onc Scenery [address] [place] [address] 05/10/2023 Hem/Onc Treatment [facility]ology [place], Chair 3 Hem Onc Scenery [address] [place] [address] 07/24/2023 Office Visit Neurology John Dodge DO [address] [place] [address] 10/19/2023 Office Visit Otolaryngology Martita Gaston MD [address] [place] [address] 11/20/2023 Office Visit Allergy & Immunology [facility] [address] [facility] [address] Scheduled Procedures Name Priority Associated Diagnoses Date/Ti [...] D LEVEL ONCE IN A LIFETIME-USE SMARTSET# [id number] Completed 11/18/2020 Influenza Vaccine (FLU shot) Completed , 05/15/2022, 06/09/2021, Additional history exists GARDASIL-HPV IMMUNIZATION SERIES Aged Out No longer eligible based on patient's age to complete this topic MENINGOCOCCAL (MENACTRA/MENVEO) Aged Out No longer eligible based on patient's age to complete this topic documented as of this encounter Medical Devices Not on filedocumented as of this encounter Care Teams Sheet Rock Sander Relationship Specialty Start Date End Date Ruel Fajardo MD [address] [place] [address] [place] [address] PCP - General Family Medicine 10/17/19 documented as of this encounter
--- OUTSIDE RECORDS SUMMARY | 2023-09-12 10:53 | External Medical Summary | Summary of Care ---
Author Name Unknown Organization [facility] Address [address] [facility] [place] [address] Phone [phone] Care Team Providers Care Beer Maker Name Role Phone Ruel Fajardo MD Primary Care Provide r Reason for Visit * Reason Comments Infusion 2/4 privigen * Episode Based Medications (Routine) - Authorized Specialty Diagnoses / Procedures Referred By Contac t Referred To Contact Diagnoses CIDP (chronic inflammatory demyelinating polyneuropathy) ([facility]) Procedures ID INJ IVIG PRIVIGEN 500 MG John Dodge, DO [address] [place] [address] Anc Hem/Onc [address] [place] [address] Referral ID Status Reason Start Date Expiration Date V isits Requested Visits Authorized [id number] Authorized 03/16/2023 03/16/2024 999 999 Encounter Details Date Type Department Care Team Description 04/10/2023 Hem/Onc Treatment Hematology/Oncology Treatment, [place] [address] [facility] [place] [address] [place], Chair 3 Hem Onc [facility] 200 [facility] [place] [address] CIDP (chronic inflammatory demyelinating polyneuropathy) ([facility])* Allergies Active Allergy Reactions Severity [...] (vitamin B-2)Indications:CONSUELO P (chronic inflammatory demyelinating polyneuropathy) ([facility]) Take by mouth 4 Tablets [...] Capsule (Neurontin)Indicati ons:CIDP (chronic inflammatory demyelinating polyneuropathy) ([facility]) 3 tabs at bedtime 90 [...] Respimat 2.5 MCG/ACT Inhalation Aerosol Solution (Tiotropium [place] Monohydrate)Indicat ions:Severe persistent asthma without complication Inhale [...] persistent asthma without complication 100 mg SC [id number] 05/15/2022 04/16/2023 Acti ve Albuterol Sulfate (Proventil) [...] documented in this encounter Nursing Notes * Sandra Diamond RN - 04/10/2023 11:39 [...] EDT Chair 6 Pt here for day 2/ privigen. PIV remains intact. No complaints. BP [...] Team Description 04/11/2023 Hem/Onc Treatment Hematology Oncology [place], Chair 3 Hem Onc Scenery [address] [place] [address] 04/12/2023 Hem/Onc Treatment Hematology Oncology [place], Chair 6 Hem Onc Scenery [address] [place] [address] 04/12/2023 Nurse Only Pulmonary Gw, Nurse Pulmonary [address] [place] [address] 04/24/2023 NeuroDiagnostic Study Neurophysiology Amy Maxwell MD [address] [place] [address] 05/07/2023 Hem/Onc Treatment Hematology [place], Chair 3 Hem Onc Scenery [address] [place] [address] 05/08/2023 Hem/Onc Treatment H[facility]ology [place], Chair 2 Hem Onc Scenery [address] [place] [address] 05/09/2023 Hem/Onc Treatment Hematology [place], Chair 8 Hem Onc Scenery [address] [place] [address] 05/10/2023 Hem/Onc Treatment Hematology [place], Chair 3 Hem Onc Scenery [address] [place] [address] 05/11/2023 Office Visit Family Medicine Ruel Fajardo MD [address] [place] [address] [place] [address] 07/24/2023 Office Visit Neurology oJhn Dodge DO [address] [place] [address] 10/19/2023 Office Visit Otolaryngology Martita Gaston MD [address] [facility] [place] [address] 11/20/2023 Office Visit Allergy & Immunology Adriel Montalvo MD [address] [place] [address] Scheduled Procedures Name Priority Associated Diagnoses Date/Ti [...] D LEVEL ONCE IN A LIFETIME-USE SMARTSET# [id number] Completed 11/18/2020 Influenza Vaccine (FLU shot) Completed [...] Diagnoses Diagnosis CIDP (chronic inflammatory demyelinating polyneuropathy) ([facility])- Primary Chronic inflammatory demyelinating polyneuritis documented in this encounter Administered Medications Active Administered Medications - up to 3 most recent administrations Medication Order MAR Action Action Date Dose Rate Site diphenhydrAMINE (Benadryl) inj 50 mg 50 mg, IV Push, ONCE PRN Other, Hypersensitivity Reaction, Starting on Sun04/10/23 at 0858, Until Sun04/11/23 at 0857, For 24 hours EPINEPHrine 1 MG/ML inj 0.3 mg 0.3 mg, Intramuscular, ONCE PRN Other, Hypersensitivity Reaction or Anaphylaxis, Starting on Sun04/10/23 at 0858, Until Sun04/11/23 at 0857, For 24 hours hEParin 100 UNIT/ML Lock Flush inj 500 Units 500 Units (5 mL), IV Lock, PRN Other, IV Flush, Starting on Sun04/10/23 at 0858, Until Sun04/11/23 at 0857, For 24 hours, Do not flush if lock, PICC, or central line not in place; IV infusing or unable to flush. Given 04/10/2023 11:23 AM EDT 500 Units Hydrocortisone Sod Suc (PF) (Solu-Cortef) inj 100 mg 100 mg, IV Push, ONCE PRN Other, Hypersensitivity Reaction, Starting on Sun04/10/23 at 0858, Until Sun04/11/23 at 0857, For 24 hours NSS infusion 500 mL, Intravenous, at 50 mL/hr, CONTINUOUS, Starting on Sun04/10/23 at 1000, Until Sun04/10/23 at 1959 Start Infusion 04/10/2023 9:00 AM EDT 500 mL 50 mL/hr sodium chloride 0.9 % flush central line 10 mL 10 mL, IV Push, PRN Other, IV Flush, Starting on Sun04/10/23 at 0858, Until Sun04/11/23 at 0857, For 24 hours, Do not flush if lock, PICC, or central line not in place; IV infusing or unable to flush. Given 04/10/2023 11:23 AM EDT 10 mL Inactive Administered Medications [...] Given 04/10/2023 9:05 AM EDT 25 mg Immune Globulin Human-IVIG [...] 9:22 AM EDT 5 g 26 mL/hr documented in this encounter Care Teams Beer Maker Relationship Specialty Start Date End Date Ruel Fajardo MD [address] [place] [address] [place] [address] PCP - General Family Medicine 10/17/19 documented as of this encounter
--- OUTSIDE RECORDS SUMMARY | 2023-09-12 10:54 | External Medical Summary | Summary of Care ---
Author Name Unknown Organization [facility] Address [address] [facility] [place] [address] Phone [phone] Care Team Providers Care Securities Supervisor Name Role Phone Ruel Fajardo MD Primary Care Provide r Encounter Details Date Type Department Care Team Description 04/04/2023 Orders Only Neurology [facility] [place] [address] [place] [address] John Dodge, 200 [facility] [place] [address] Allergies Active Allergy Reactions Severity Noted Date [...] (Neurontin)Indicatio ns:CIDP (chronic inflammatory demyelinating polyneuropathy) ([facility] [...] Respimat 2.5 MCG/ACT Inhalation Aerosol Solution (Tiotropium [place] Monohydrate)Indicati ons:Severe persistent asthma without complication Inhale [...] persistent asthma without complication 100 mg SC [id number] 05/15/2022 04/16/2023 Acti ve Albuterol Sulfate (Proventil) [...] Encounters Date Type Specialty Care Team Description 04/06/2023 Telemedicine Orthopedics Bong Mandel MD [address] [place] [phone] 04/09/2023 Hem/Onc Treatment Hematology [place], Chair 3 Hem Onc Scenery [address] [place] [address] 04/10/2023 Hem/Onc Treatment Hematology [place], Chair 3 Hem Onc Scenery [address] [place] [address] 04/11/2023 Hem/Onc Treatment Hematology [place], Chair 3 Hem Onc Scenery [address] [place] [address] 04/12/2023 Hem/Onc Treatment Hematology [place], Chair 6 Hem Onc Scenery [address] [place] [address] 04/12/2023 Nurse Only Pulmonary Gw, Nurse Pulmonary [address] [place] [address] 04/23/2023 Office Visit Family Medicine Ruel Fajardo MD [address] [place] [address] [place] [address] 04/24/2023 NeuroDiagnostic Study Neurophysiology Amy Maxwell MD 200 [facility] [place], [place] [address] 07/24/2023 Office Visit Neurology John Dodge DO 200 [facility] [place] [address] 10/19/2023 Office Visit Otolaryngology Martita Gaston MD [address] [place] [address] 11/20/2023 Office Visit Allergy & Immunology Adriel Montalvo MD 200 [facility] [place], [place] [address] Scheduled Procedures Name Priority Associated Diagnoses Date/Ti [...] D LEVEL ONCE IN A LIFETIME-USE SMARTSET# [id number] Completed 11/18/2020 Influenza Vaccine (FLU shot) Completed , 05/15/2022, 06/09/2021, Additional history exists GARDASIL-HPV IMMUNIZATION SERIES Aged Out No longer eligible based on patient's age to complete this topic MENINGOCOCCAL (MENACTRA/MENVEO) Aged Out No longer eligible based on patient's age to complete this topic documented as of this encounter Medical Devices Not on filedocumented as of this encounter Care Teams Securities Supervisor Relationship Specialty Start Date End Date Ruel Fajardo MD [address] [place] [address] [place] [address] PCP - General Family Medicine 10/17/19 documented as of this encounter
--- OUTSIDE RECORDS SUMMARY | 2023-09-12 10:54 | External Medical Summary | Summary of Care ---
Author Name Unknown Organization [facility] Address [address] [facility] [place] [address] Phone [phone] Care Team Providers Care Filter Tip Inspector Name Role Phone Ruel Hastings MD Primary Care Provide r Reason for Visit * Reason Comments eRx-Medication Refill Encounter Details Date Type Department Care Team Description 03/22/2023 Refill Family Medicine [address] [place] [address] Ruel Hastings MD [address] [place] [address] [place] [id number] Severe persistent asthma without complication Allergies Active Allergy Reactions Severity Noted Date Comments Amoxicillin Rash 07/17/2011 documented as of this encounter (statuses as of 03/23/2023) Medications Medication Sig Dispensed Refills Start Date [...] P (chronic inflammatory demyelinating polyneuropathy) ([facility]) [...] before bedtime. 30 mL 11 2 Active Doxycycline Hyclate 100 MG Oral Capsule Take 1 Capsule (100 mg) by mouth in the morning and 1 Capsule (100 mg) before bedtime. 20 Capsule 0 2 Active Additional Information Patient not taking.Reported on 02/21/2023 Gabapentin 100 MG Oral Capsule (Neurontin)Indicati ons:CIDP (chronic inflammatory demyelinating polyneuropathy) ([facility]) 3 tabs at bedtime 90 Capsule 5 2 Active Albuterol Sulfate (2.5 MG/3ML) 0.083% Inhalation Nebulization Solution (Proventil)Indicati ons:Wheeze INHALE ONE VIAL VIA NEBULIZER EVERY 4 HOURS NEEDED FOR WHEEZING OR SHORTNESS OF BREATH 180 mL 1 04/22/202 3 Active hydroCHLOROthiazide 12.5 MG Oral Capsule (Hydrodiuril)Indica tions:HTN, goal below 140/90 Take 3 Capsules by mouth in the morning. - on days of IVIG infusion. 60 Capsule 1 3 Active hydrALAZINE HCl 25 MG [...] Respimat 2.5 MCG/ACT Inhalation Aerosol Solution (Tiotropium [place] Monohydrate)Indicat ions:Severe persistent asthma without complication Inhale 2 Puffs by mouth in the morning. 12 g 2 3 Active Cyclobenzaprine HCl 5 MG Oral Tablet (Flexeril)Indicatio ns:Weakness of both legs,Numbness and tingling of foot,Lumbar compression fracture (HCC) TAKE ONE TABLET BY MOUTH TWICE DAILY NEEDED FOR MUSCLE SPASM 30 Tablet 1 3 Active Montelukast Sodium 10 MG Oral Tablet (Singulair)Indicati ons:Asthma, severe persistent Take 1 Tablet by mouth in the morning. 90 Tablet 3 3 Active predniSONE 10 MG Oral Tablet (Deltasone) 1-3 tabs daily as directed 90 Tablet 0 3 Active Albuterol Sulfate HFA 108 (90 Base) MCG/ACT Inhalation Aerosol SolutionIndications :Severe persistent asthma without complication TAKE 2 PUFFS BY MOUTH EVERY 4 HOURS NEEDED FOR WHEEZE 8.5 g 5 3 Active Albuterol Sulfate HFA 108 (90 Base) MCG/ACT Inhalation Aerosol SolutionIndications :Severe persistent asthma without complication INHALE 2 PUFFS BY MOUTH EVERY 4 HOURS NEEDED FOR WHEEZING Strength: 108 (90 BASE) MCG/ACT 18 g 5 3 03/23/20 23 Discontinued Hospital, Clinic, or Other Facility Administered Medication Ordered Dose Route Frequency Start Date End Date Status Mepolizumab (Nucala) inj 100 mgIndications:Severe persistent asthma without complication 100 mg SC [id number] 05/15/2022 04/16/2023 Acti ve Albuterol Sulfate (Proventil) (2.5 MG/3ML) 0.083% inhalation solution 2.5 mgIndications:Severe persistent asthma without complication 2.5 mg NEBULIZER PRN 09/20/2022 09/20/2023 Acti ve Albuterol Sulfate (Proventil) (5 MG/ML) 0.5% *conc* inhalation solution 2.5 mgIndications:Severe persistent asthma without complication 2.5 mg NEBULIZER PRN 09/20/2022 09/20/2023 Acti ve documented as of this encounter (statuses as of 03/23/2023) Active Problems Problem Noted Date Mild aortic [...] as of this encounter (statuses as of 03/23/2023) Resolved Problems Problem Noted Date Resolved Date Wedge compression fracture o f unspecified lumbar vertebra, initial encounter for closed fracture 09/06/2022 09/06/2022 Compression of lumbar vertebra 11/18/2020 0 01/20/2021 Asthma, moderate persistent 08/29/201109/24 Asthma exacerbation 07/17/2011 05/13/2012 documented as of this encounter (statuses as of 03/23/2023) Immunizations Name Administration Dates Next Due COVID-19 [...] IM (FLUAD) 05/12/2020 Seasonal Influenza, PF, 6 mo ns & Above, IM , (Flulaval) 04/22/2018,05/14/2017 05/14/2018 Seasonal Influenza, Quadriva lent Hd [...] encounter Miscellaneous Notes * Telephone Encounter - Jannie Chavez RPh - 03/23/2023 7:13 AM EDTSigned Prescriptions: Disp Refills Albuterol Sulfate HFA 108 (90 Base) MCG/AC*8.5 g 5 Sig: TAKE 2 PUFFS BY MOUTH EVERY 4 HOURS NEEDED FOR WHEEZEAuthorizing Provider: Yana HASTINGS User: JANNIE CHAVEZ documented in this encounter Plan of Treatment Upcoming Encounters Date Type Specialty Care Team Description 04/06/2023 Telemedicine Orthopedics Bong Mandel MD [address] [facility] [place] [phone] 04/09/2023 Hem/Onc Treatment H[facility]ology [facility] [place], Chair 3 Hem Onc Scenery [address] [place] [address] 04/10/2023 Hem/Onc Treatment [facility] [place], Chair 3 Hem Onc Scenery [address] [place] [address] 04/11/2023 Hem/Onc Treatment [facility] [place], Chair 3 Hem Onc Scenery [address] [place] [address] 04/12/2023 Hem/Onc Treatment [facility] [place], Chair 6 Hem Onc Scenery [address] [place] [address] 04/12/2023 Nurse Only Pulmonary Gw, Nurse Pulmonary 132 [place] [address] 04/23/2023 Office Visit Family Medicine Ruel Hastings MD [address] [place] [address] [place] [address] 04/24/2023 NeuroDiagnostic Study Neurophysiology Amy Maxwell MD [address] [place] [address] 07/24/2023 Office Visit Neurology John Dodge DO [address] [place] [address] 10/19/2023 Office Visit Otolaryngology Martita Gaston MD [address] [place] [address] 11/20/2023 Office Visit Allergy & Immunology Adriel Montalvo MD [address] [place] [address] Scheduled Procedures Name Priority Associated Diagnoses Date/Ti [...] D LEVEL ONCE IN A LIFETIME-USE SMARTSET# [id number] Completed 11/18/2020 Influenza Vaccine (FLU shot) Completed [...] complication documented in this encounter Care Teams Filter Tip Inspector Relationship Specialty Start Date End Date Ruel Hastings MD [address] [place] [address] [place] [phone] PCP - General Family Medicine 10/17/19 documented as of this encounter
--- OUTSIDE RECORDS SUMMARY | 2023-09-12 10:54 | External Medical Summary | Summary of Care ---
Author Name Unknown Organization [facility] Address [address] [facility] [place] [address] Phone [phone] Care Team Providers Care General Science Teacher Name Role Phone Ruel Fajardo MD Primary Care Provide r Encounter Details Date Type Department Care Team Description 04/04/2023 Orders Only Neurology [facility] [place] [address] [place] [address] John Dodge, [address] [facility] [place] [address] Allergies Active Allergy Reactions Severity Noted Date [...] Respimat 2.5 MCG/ACT Inhalation Aerosol Solution (Tiotropium [place] Monohydrate)Indicati ons:Severe persistent asthma without complication Inhale [...] persistent asthma without complication 100 mg SC [id number] 05/15/2022 04/16/2023 Acti ve Albuterol Sulfate (Proventil) [...] Orthopedics Bong Mandel MD [address] [place] [phone] 04/09/2023 Hem/Onc Treatment [facility] [place], Chair 3 Hem Onc Scenery [address] [place] [address] 04/10/2023 Hem/Onc Treatment [facility] [place], Chair 3 Hem Onc Scenery [address] [place] [address] 04/11/2023 Hem/Onc Treatment [facility] [place], Chair 3 Hem Onc Scenery [address] [place] [address] 04/12/2023 Hem/Onc Treatment [facility] [place], Chair 6 Hem Onc Scenery [address] [place] [address] 04/12/2023 Nurse Only Pulmonary Gw, Nurse Pulmonary 132 [place] [address] 04/23/2023 Office Visit Family Medicine Ruel Fajardo MD [address] [place] [address] [place] [address] 04/24/2023 NeuroDiagnostic Study Neurophysiology Amy Maxwell MD 200 [facility] [place], [place] [address] 07/24/2023 Office Visit Neurology John Dodge DO [address] [facility] [place] [address] 10/19/2023 Office Visit Otolaryngology Martita Gaston MD [address] [place] [address] 11/20/2023 Office Visit Allergy & Immunology Adriel Montalvo MD [address] [facility] [place], [place] [address] Scheduled Procedures Name Priority Associated Diagnoses Date/Ti [...] D LEVEL ONCE IN A LIFETIME-USE SMARTSET# [id number] Completed 11/18/2020 Influenza Vaccine (FLU shot) Completed , 05/15/2022, 06/09/2021, Additional history exists GARDASIL-HPV IMMUNIZATION SERIES Aged Out No longer eligible based on patient's age to complete this topic MENINGOCOCCAL (MENACTRA/MENVEO) Aged Out No longer eligible based on patient's age to complete this topic documented as of this encounter Medical Devices Not on filedocumented as of this encounter Care Teams General Science Teacher Relationship Specialty Start Date End Date Ruel Fajardo MD [address] [place] [address] [place] [address] PCP - General Family Medicine 10/17/19 documented as of this encounter
--- OUTSIDE RECORDS SUMMARY | 2023-09-12 10:54 | External Medical Summary | Summary of Care ---
Author Name Unknown Organization [facility] Address [address] [facility] [place] [address] Phone [phone] Care Team Providers Care Title I Instructional Assistant Name Role Phone Ruel Fajardo MD Primary Care Provide r Encounter Details Date Type Department Care Team Description 04/04/2023 Orders Only Neurology [facility] [place] [address] [place] [address] John Dodge, 200 [facility] [place] [address] Allergies Active Allergy Reactions Severity Noted Date Comments Amoxicillin Rash 07/17/2011 documented as of this encounter (statuses as of 04/04/2023) Medications Medication Sig Dispensed Refills Start Date [...] Tablet (vitamin B-2)Indications:CIDP (chronic inflammatory demyelinating polyneuropathy) ([facility]) Take by mouth 4 Tablets in the [...] Capsule (Neurontin)Indicatio ns:CIDP (chronic inflammatory demyelinating polyneuropathy) ([facility]) 3 tabs at bedtime 90 Capsule 5 [...] Respimat 2.5 MCG/ACT Inhalation Aerosol Solution (Tiotropium [place] Monohydrate)Indicati ons:Severe persistent asthma without complication Inhale [...] persistent asthma without complication 100 mg SC [id number] 05/15/2022 04/16/2023 Acti ve Albuterol Sulfate (Proventil) (2.5 MG/3ML) 0.083% inhalation solution 2.5 mgIndications:Severe persistent asthma without complication 2.5 mg NEBULIZER PRN 09/20/2022 09/20/2023 Acti ve Albuterol Sulfate (Proventil) (5 MG/ML) 0.5% *conc* inhalation solution 2.5 mgIndications:Severe persistent asthma without complication 2.5 mg NEBULIZER PRN 09/20/2022 09/20/2023 Acti ve documented as of this encounter (statuses as of 04/04/2023) Active Problems Problem Noted Date Mild aortic [...] as of this encounter (statuses as of 04/04/2023) Resolved Problems Problem Noted Date Resolved Date Wedge compression fracture o f unspecified lumbar vertebra, initial encounter for closed fracture 09/06/2022 09/06/2022 Compression of lumbar vertebra 11/18/2020 0 01/20/2021 Asthma, moderate persistent 08/29/201109/24 Asthma exacerbation 07/17/2011 05/13/2012 documented as of this encounter (statuses as of 04/04/2023) Immunizations Name Administration Dates Next Due COVID-19 [...] Orthopedics Bong Mandel MD [address] [place] [phone] 04/09/2023 Hem/Onc Treatment [facility] [place], Chair 3 Hem Onc Scenery [address] [place] [address] 04/10/2023 Hem/Onc Treatment [facility] [place], Chair 3 Hem Onc Scenery [address] [place] [address] 04/11/2023 Hem/Onc Treatment [facility] [place], Chair 3 Hem Onc Scenery [address] [place] [address] 04/12/2023 Hem/Onc Treatment H[facility]ology [facility] [place], Chair 6 Hem Onc Scenery [address] [place] [address] 04/12/2023 Nurse Only Pulmonary Gw, Nurse Pulmonary [address] [place] [address] 04/23/2023 Office Visit Family Medicine Ruel Fajardo MD [address] [place] [address] [place] [address] 04/24/2023 NeuroDiagnostic Study Neurophysiology Amy Maxwell MD 200 [facility] [place], [place] [address] 07/24/2023 Office Visit Neurology John Dodge DO 200 [facility] [place] [address] 10/19/2023 Office Visit Otolaryngology Martita Gaston MD [address] [place] [address] 11/20/2023 Office Visit Allergy & Immunology Adriel Montalvo MD 200 [facility] [place], [place] [address] Scheduled Procedures Name Priority Associated Diagnoses Date/Ti [...] D LEVEL ONCE IN A LIFETIME-USE SMARTSET# [id number] Completed 11/18/2020 Influenza Vaccine (FLU shot) Completed , 05/15/2022, 06/09/2021, Additional history exists GARDASIL-HPV IMMUNIZATION SERIES Aged Out No longer eligible based on patient's age to complete this topic MENINGOCOCCAL (MENACTRA/MENVEO) Aged Out No longer eligible based on patient's age to complete this topic documented as of this encounter Medical Devices Not on filedocumented as of this encounter Care Teams Title I Instructional Assistant Relationship Specialty Start Date End Date Ruel Fajardo MD [address] [place] [address] [place] [address] PCP - General Family Medicine 10/17/19 documented as of this encounter
--- NOTE | 2023-09-12 12:34 | Communication Note ---
Date of Service: September 12, 2023 Patient seen and examined Patient and reports increased increase pain in hands/wrists and back pain since beginning of August when he was treated by UTI Reports chronic LE weakness and numbness in feet Get MRI lumbar spine for better eval F/u CT hands ordered by Admitting DrMart Continue antibiotics and follow up infection workup Other plans as detailed in H&P this AM
[2023-09-12] MEDS: oxyCODONE HCL IR 5 MG TAB (IMMEDIATE RELEASE) PO PRN (12:42)
--- NOTE | 2023-09-12 15:45 | Electrocardiogram Report ---
Test Reason : Blood Pressure : / mmHG Vent. Rate : 145 BPM Atrial Rate : 145 BPM P-R Int : 142 ms QRS Dur : 070 ms QT Int : 260 ms P-R-T Axes : 028 046 -11 degrees QTc Int : 403 ms Sinus tachycardia Nonspecific ST and T wave abnormality Abnormal ECG When compared with ECG of 23-FEB-2023 20:30, ST now depressed in Anterolateral leads Confirmed by Chau Duque ([id number]) on 09/12/2023 3:44:50 PM Referred By: REFERRED SELF Confirmed By:Bright Duque
--- NOTE | 2023-09-12 17:21 | Magnetic Resonance Report ---
MR lumbar spine wo con CLINICAL HISTORY: Worsening of low back pain. Ambulatory dysfunction TECHNIQUE: Multiplanar sequences through the lumbar spine were obtained, without intravenous contrast . Comparison: Comparison is made to CT lumbar spine 09/11/2023 FINDINGS: The alignment is anatomical. L1-L2: Facet arthropathy results in mild canal stenosis and no significant neuroforaminal stenosis. L2-L3: Broad-based posterior disc bulge and facet arthropathy result in moderate canal stenosis, AP d iameter 7 mm, and severe bilateral neural foraminal stenosis. L3-L4: Extradural lipomatosis, broad-based posterior disc bulge and facet arthropathy result in sever e canal stenosis, AP diameter 5 mm, and severe bilateral neural foraminal stenosis. L4-L5: Right greater than left posterior disc bulge result in severe right and moderate left neural f oraminal stenosis and mild canal stenosis. L5-S1: Bilateral facet arthropathy is seen. There is moderate bilateral neural foraminal stenosis. The spinal ligaments are intact, without evidence of disruption or abnormal signal intensity. The spi nal cord is normal in signal intensity and there is no evidence of cord contusion. There is no eviden ce of an extradural, intradural, extramedullary or intramedullary lesion. Visualized soft tissues are normal. IMPRESSION: Multilevel degenerative changes with up to severe canal stenosis, AP diameter 5 mm and severe bilater al neuroforaminal stenosis. ACT 112: Negative or not required by law. Electronically signed by: Sagar Rollins M.D. 09/12/2023 5:19 PM
[2023-09-12 17:36] LABS: A calco-baum cmplx NotReported Not Detected (NotDetected); Bact fragilis Not Reported Not Detected (NotDetected); Blood Culture Id Panel See PCR Comment (NotDetected); C auris Not Reported Not Detected (NotDetected); Calbicans Not Reported Not Detected (NotDetected); Candida glabrata Not Reported Not Detected (NotDetected); Candida krusei Not Reported Not Detected (NotDetected); Cneoformans/gatti Not Reported Not Detected (NotDetected); Cparapsilosis Not Reported Not Detected (NotDetected); E cloacae compx Not Reported Not Detected (NotDetected); Efaecalis Not Reported Not Detected (NotDetected); Efaecium Not Reported Not Detected (NotDetected); Enterobacterales Not Reported Not Detected (NotDetected); Escherichia coli Not Reported Not Detected (NotDetected); H influenzae Not Reported Not Detected (NotDetected); K aerogenes Not Reported Not Detected (NotDetected); Koxytoca Not Reported Not Detected (NotDetected); Kpneumoniae grp Not Reported Not Detected (NotDetected); Lmonocyt Not Reported Not Detected (NotDetected); N meningitidis Not Reported Not Detected (NotDetected); P aeruginosa Not Reported Not Detected (NotDetected); Proteus spp Not Reported Not Detected (NotDetected); Salmonella spp Not Reported Not Detected (NotDetected); Smarcescens Not Reported Not Detected (NotDetected); Staph lugdunensis Not Reported Not Detected (NotDetected); Staph spp. Not Reported DETECTED (NotDetected); Staphaureus Not Reported DETECTED (NotDetected); Staphepi Not Reported Not Detected (NotDetected); Stenmaltophilia Not Reported Not Detected (NotDetected); Strep agal(GrpB) Not Reported Not Detected (NotDetected); Strep pneum Not Reported Not Detected (NotDetected); Strep pyog (GrpA) Not Reported Not Detected (NotDetected); Strep spp Not Reported Not Detected (NotDetected); mecAC+MREJ Resistant Gene MRSA Not Detected (NotDetected)
[2023-09-12 18:15] LABS: Staphylococcus spp. DETECTED (NotDetected)
[2023-09-12] MEDS ORDERED: METOPROLOL SUCC 25MG EXT REL TAB PO SCH (19:30)
[2023-09-12] MEDS: GABAPENTIN 300 MG CAP PO SCH (19:42)
[2023-09-12] MEDS: POTASSIUM CHLORIDE 20 MEQ in LACTATED RINGER'S 1,000 ML IV ONE (20:58)
[2023-09-13] MEDS: OPTIRAY 320 100ml IV ONE (00:27)
[2023-09-13] MEDS: ALBUMIN 25% 25 GM/100 ML VIAL IV ONE (00:37)
--- NOTE | 2023-09-13 01:50 | CT Scan Report ---
Exam(s): CT EXTREMITY LEFT UPPER With Contrast IV Amt: 92 ml optiray 320 EXAM: CT Left Upper Extremity With Intravenous Contrast CLINICAL HISTORY: Reason for exam: swelling, sepsis, pls include wrist. TECHNIQUE: Axial computed tomography images of the left upper extremity with intravenous contrast. CTDI is 6.03 mGy and DLP is 246.74 mGy-cm. Automated exposure control was utilized for the study. A dose lowering technique was utilized adhering to the principles of ALARA. CONTRAST: Patient received 92 ml optiray 320 of IV contrast COMPARISON: No relevant prior studies available. FINDINGS: Bones/joints: Severe narrowing with moderate sclerosis and numerous scattered subchondral cyst throughout the radiocarpal and intercarpal joints of the wrist. There is mild surrounding soft tissue swelling and probable moderate joint effusion. There or several 4-5 mm loose bodies along the dorsal aspect of the radiocarpal joint. No acute fracture or dislocation is identified. Soft tissues: See above. Other findings: Suboptimal positioning. IMPRESSION: Severe narrowing with moderate sclerosis and numerous scattered subchondral cyst throughout the radiocarpal and intercarpal joints of the wrist. There is mild surrounding soft tissue swelling and probable moderate joint effusion. Differential considerations include septic joint versus gout versus erosive osteoarthritis. Electronically signed by: Kwame Guerrero MD 09/13/23 01:48 AM
--- NOTE | 2023-09-13 01:57 | CT Scan Report ---
Exam(s): CT EXTREMITY RIGHT UPPER With Contrast IV Amt: 92 ml optiray 320 EXAM: CT Right Upper Extremity With Intravenous Contrast CLINICAL HISTORY: Reason for exam: swelling, sepsis, pls include wrist. TECHNIQUE: Axial computed tomography images of the right upper extremity with intravenous contrast. CTDI is 6.03 mGy and DLP is 246.74 mGy-cm. Automated exposure control was utilized for the study. A dose lowering technique was utilized adhering to the principles of ALARA. CONTRAST: Patient received 92 ml optiray 320 of IV contrast COMPARISON: No relevant prior studies available. FINDINGS: Bones/joints: Severe narrowing of the radiocarpal joint and intercarpal joints with extensive subchondral erosions measuring up to 1. 8 cm in diameter in the distal radius.. There appears to be partial collapse of the wrist joint, obscured by positioning. Probable partial reabsorption of the navicular bone. No dislocation. No acute fracture is seen. Soft tissues: Soft tissue edema surrounding the wrist. There is a small joint effusion. No abscess is seen. Other findings: Suboptimal positioning. IMPRESSION: Severe narrowing of the radiocarpal joint and intercarpal joints with extensive subchondral erosions measuring up to 1.8 cm in diameter in the distal radius.. There appears to be partial collapse of the wrist joint, obscured by positioning. Differential considerations include in gout versus rheumatoid are erosive osteoarthritis. Less likely septic joint. Electronically signed by: Kwame Guerrero MD 09/13/23 01:56 AM
--- NOTE | 2023-09-13 06:48 | Communication Note ---
Date of Service: September 13, 2023 Made aware of bilateral hand CT results. RUE Severe narrowing of the radiocarpal joint and intercarpal joints with extensive subchondral erosions measuring up to 1.8 cm in diameter in the distal radius.. There appears to be partial collapse of the wrist joint, obscured by positioning. Differential considerations include in gout versus rheumatoid are erosive osteoarthritis. Less likely septic joint. LUE Severe narrowing with moderate sclerosis and numerous scattered subchondral cyst throughout the radiocarpal and intercarpal joints of the wrist. There is mild surrounding soft tissue swelling and probable moderate joint effusion. Differential considerations include septic joint versus gout versus erosive osteoarthritis Initial blood CS result Gram-positive cocci in clusters 2 bottles MRSA not detected. AP Septicemia possibly from bilateral hand/wrist infection Continue cefepime Hold daptomycin for now Check TTE Repeat blood cultures in a.m. as ordered by AM provider Orthopedics consult Re: Bilateral hand/wrist swelling possible septic arthritis ID consult at some point Will relay to AM provider.
[2023-09-13 07:45] LABS: Hematocrit (blood only) 30.6 % (42.0-52.0); Hemoglobin 10.1 g/dl (14.0-18.0); Mean Corpuscular Hemoglobin 31.9 pg (25.0-34.0); Mean Corpuscular Volume 96.5 fL (80.0-100.0); Mean Platelet Volume 9.9 fL (9.4-12.4); Platelet Count 236 K/uL (130-400); RDW Coefficient of Variation 14.9 % (11.5-14.5); RDW Standard Deviation 52.8 fL (36.4-46.3); Red Blood Count 3.17 M/uL (4.70-6.10); White Blood Count 23.71 K/ul (4.8-10.8)
--- NOTE | 2023-09-13 07:56 | XRay Report ---
XR wrist RT min 3V routine CLINICAL HISTORY: Right wrist arthritis. COMPARISON: Right forearm radiographs February 23, 2023. Right hand CT September 13, 2023 at 12:06 AM. FINDINGS: Distal right forearm and wrist soft tissue swelling is noted. There is severe radiocarpal and ulnocarpal joint space narrowing with associated osteophytosis, bony fragmentation and erosions. Associated bone fragments measure up to 1.1 cm. There is collapse of the proximal carpal row. There i s volar tilt of the wrist, shown on lateral projection. No soft tissue gas is identified. These findi ngs have progressed since radiographs of February 23, 2023. IMPRESSION: Markedly abnormal appearance of the right wrist with severe radiocarpal and ulnocarpal gomez int space narrowing with associated osteophytosis, bony fragmentation and erosions. Collapse of the p roximal carpal row. Findings have progressed since radiographs of February 23, 2023. The radiographic appearance is nonspecific although may reflect severe osteoarthritis. Septic arthritis with osteomye litis could have a similar imaging appearance. An erosive arthritis or neuropathic arthropathy are al so within the differential. ACT 112: Negative or not required by law. Electronically signed by: Zaheer Alfaro M.D. 09/13/2023 7:54 AM
--- NOTE | 2023-09-13 08:08 | XRay Report ---
LEFT WRIST 5 VIEWS CLINICAL HISTORY: Arthritis. FINDINGS: 5 views of the left wrist are obtained. No prior studies are available for comparison at th e time of dictation. The skeletal structures are osteopenic. There is no radiographic evidence of acu te fracture. Severe osteoarthritic change is seen at the distal radioulnar joint and at the radiocarp al articulation. There is severe degenerative change and bony fragmentation/collapse of the proximal carpal row. There is marked widening between the scaphoid and the lunate with proximal migration of t he capitate indicating chronic ligamentous injury with a SLAC wrist. Moderate osteoarthritic change i s seen at the first carpometacarpal articulation. Soft tissue edema is present around the wrist and h and. There are 2 tiny metallic foreign bodies present within the soft tissues of the hand. One projec ts adjacent to the first metacarpal, and the second projects over the third/fourth metacarpal heads. IMPRESSION: 1. Soft tissue swelling with no acute fracture identified. 2. Severe degenerative change with collapse of the proximal carpal row and evidence of a SLAC wrist a s detailed above. 3. There are 2 small metallic foreign bodies noted in the soft tissues of the hand.. Electronically signed by: Spencer Matthews M.D. 09/13/2023 8:06 AM
[2023-09-13 08:14] LABS: BUN Creatinine Ratio 44.8 (10-20); Calcium 9.2 mg/dl (8.6-10.3); Creatinine Clr Calc Pharmacy 99.6 ml/min; Est GFR (African American) 102.1 ml/min; Est GFR (Non-African American) 88.1 ml/min; Potassium 4.4 mmol/L (3.5-5.1)
[2023-09-13] MEDS: ATORVASTATIN 10 MG TAB PO SCH (08:40)
--- NOTE | 2023-09-13 09:17 | Orthopedic Consultation ---
Date of Consultation September 13, 2023 Assessment & Plan (1) Osteoarthritis of wrists, bilateral: Given the patient's history and clinical appearance, I suspect that is very severe bilateral wrist joint arthritis is likely posttraumatic. Severe erosive arthritis such as rheumatoid arthritis could have a similar appearance, but no obvious other rheumatoid joints, and patient denies history of rheumatoid arthritis. No evidence of septic arthritis. I do not think he requires any urgent orthopedic surgical intervention. I do not think his wrists are the cause of his sepsis and bacteremia. Orthopedics will sign off. History of Present Illness Reason for Consultation: "septic arthritis, patti wrists" Requesting Physician: Dr. Fraser Attending Physician: Margaret Jenkins MD History of Present Illness Mr. Gao is a 68-year-old [id number] male with chronic bilateral wrist pain who was admitted on 09/11/23 for sepsis. Orthopedics was consulted for question of bilateral wrist septic arthritis as a potential cause of his sepsis and bacteremia. The patient reports that he has had intermittent flareups of bilateral wrist pain over the past 15 to 20 years, left worse than right. 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 He says that he has "stoved" his wrists numerous times during that work. He states that the frequency and severity of the wrist pain seemed to get worse around 4 years ago when he started having frequent falls due to an autoimmune disorder causing leg weakness. He does not know what this autoimmune disorder is. 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 He states that after a fall, his wrist pain would flareup for about a week, but then subside. He feels like his current wrist pain is very similar to his normal flareups of wrist pain. He denies history of rheumatoid arthritis. Allergies Allergy/AdvReac Type Severity Reaction Status Date / Time amoxicillin AdvReac Intermediate made me Verified 09/12/23 08:49 feel weird Home Medications Medication Instructions Recorded Confirmed Type albuterol sulfate 2.5 mg/3 mL 1 vial continuous nebulization Q4 08/13/18 09/12/23 History (0.083 %) solution for nebulization PRN Shortness Of Breath Or Wheezing albuterol sulfate 90 mcg/actuation 2 puff inhalation Q4 PRN Shortness 08/13/18 09/12/23 History aerosol inhaler Of Breath Or Wheezing fluticasone 500 mcg-salmeterol 50 1 puff inhalation BID 08/13/18 09/12/23 History mcg/dose blistr powdr for inhalation meloxicam 7.5 mg tablet 7.5 mg PO DAILY 08/13/18 09/12/23 History metaxalone 800 mg tablet 800 mg PO TID PRN Muscle Spasm 08/13/18 09/12/23 History metoprolol succinate 25 mg 25 mg PO UD 08/13/18 09/12/23 History tablet,extended release 24 hr mometasone 50 mcg/actuation nasal 2 spray intranasal DAILY 08/13/18 09/12/23 History spray montelukast 10 mg tablet 10 mg PO QAM 08/13/18 09/12/23 History azelastine 137 mcg (0.1 %) nasal 2 spray intranasal BID 05/10/20 09/12/23 History spray aerosol prednisone 10 mg tablet 10 - 30 mg PO QAM 05/10/20 09/12/23 History pseudoephedrine-guaifenesin ER 60 1 tab PO BID PRN Congestion 05/10/20 09/12/23 History mg-600 mg tablet,extend release 12hr (Mucinex D) aspirin-caffeine 400 mg-32 mg See Rx Instructions .Route .COMPLEX 09/15/21 09/12/23 History tablet (Anacin) cyclobenzaprine 5 mg tablet 5 mg PO BID PRN Muscle Spasm 09/15/21 09/12/23 History duloxetine 60 mg capsule,delayed 60 mg PO DAILY 09/15/21 09/12/23 History release gabapentin 100 mg capsule 300 mg PO HS 09/15/21 09/12/23 History hydrochlorothiazide 25 mg tablet 25 mg PO QAM 09/15/21 09/12/23 History mepolizumab 100 mg subcutaneous 0 mg subcut UD 09/15/21 09/12/23 History solution (Nucala) multivitamin 1 tab PO DAILY 09/15/21 09/12/23 History tiotropium bromide 2.5 2 puff inhalation QAM 09/15/21 09/12/23 History mcg/actuation mist for inhalation (Spiriva Respimat) atorvastatin 10 mg tablet 10 mg PO QAM 09/12/23 09/12/23 History cholecalciferol (vitamin D3) 25 25 mcg PO QAM 09/12/23 09/12/23 History mcg (1,000 unit) capsule (Vitamin D3) hydralazine 25 mg tablet 25 mg PO Q4H PRN BP over 160/100 09/12/23 09/12/23 History hydrochlorothiazide 12.5 mg capsule See Rx Instructions .Route .COMPLEX 09/12/23 09/12/23 History losartan 25 mg tablet 50 mg PO QAM 09/12/23 09/12/23 History naproxen 500 mg tablet 500 mg PO BID pain 09/12/23 09/12/23 History omega-3 fatty acids-vitamin E 1 cap PO QAM 09/12/23 09/12/23 History 1,000 mg capsule riboflavin (vitamin B2) 100 mg 400 mg PO QAM 09/12/23 09/12/23 History tablet (Vitamin B-2) Patient History Medical History Ambulates with cane Chronic sinusitis Long-term current use of steroids Allergic bronchopulmonary aspergillosis JOANN (obstructive sleep apnea) no device Asthma inhaler daily and prn Benign essential HTN HTN (hypertension) Hernia Surgical History History of colonoscopy History of tooth extraction History of tonsillectomy Status post uvulopalatopharyngoplasty History of ear surgery mastoid sx S/P hernia surgery Family History Grandfather (Paternal) Family history of diabetes mellitus Grandfather (Maternal) Family history of diabetes mellitus Family history of esophageal cancer Other Asthma No family history of adverse response to anesthesia Social History Smoking Status: Former smoker Second Hand Exposure: No; Do You Dip or Chew Tobacco: No (quit 10 years ago); Hx Alcohol Use: Yes Alcohol type: beer Hx Substance Use: No Preferred Language: Turkish Communication Ability: Effective Glass Washer And Carrier Required: No Beliefs That Will Affect Care: None Current Living Situation: Spouse current occupational status: employed Other Information That Helps Us Care for You: No Feels Safe at Home: Yes Safety Concerns: Feels Safe At This Time Assistive Devices: Cane Physical Exam Physical Exam: Upon entering the room he is resting comfortably in bed in no distress. Examination of bilateral wrist reveals some deformity and enlargement consistent with arthritis. He has moderate limitation in his range of motion, especially extension bilaterally, left worse than right. He has obvious palpable crepitus during range of motion consistent with arthritis, but fairly mild pain. No erythema, warmth, induration, or large palpable effusions. Motor and sensory function is intact bilaterally. Results & Data Vital Signs (Past 12 Hours) Vital Signs Temp Pulse Resp BP BP Pulse Ox O2 Del Method 09/13/23 08:36 36.5 C 102 H 20 116/74 91 Nasal Cannula 09/13/23 03:14 36.5 C 93 H 18 115/74 90 Nasal Cannula 09/12/23 23:24 36.2 C L 94 H 17 127/82 94 Room Air O2 Flow Rate 09/13/23 08:36 3 09/13/23 03:14 2 09/12/23 23:24 Laboratory Results WBC 28.9 -> 23.7 No ESR or CRP obtained Blood cultures growing Staphylococcus species. Diagnostic Findings X-rays and CT scans of bilateral wrist were reviewed. They show very severe, obviously chronic wrist joint arthritis. There is severe bony destruction, right slightly worse than the left. Due to the severity of the bone destruction, it is difficult to determine the underlying cause of the arthritis. I suspect that this is posttraumatic and possibly consistent with a very severe chronic SLAC wrist. CT scans show diffuse subchondral cystic changes in numerous carpal bones and distal radius. No abscesses are seen. (1) Osteoarthritis of wrists, bilateral Osteoarthritis type: unspecified Qualified Code(s): M19.031 - Primary osteoarthritis, right wrist; M19.032 - Primary osteoarthritis, left wrist
[2023-09-13] MEDS: ALBUTEROL 0.083% NEBU SOLN 3 ML VIAL NEB PRN (11:24)
[2023-09-13] MEDS: CYCLOBENZAPRINE HCL 5 MG TAB PO PRN (12:18)
[2023-09-13] MEDS: ACETAMINOPHEN 500 MG TAB PO PRN (12:24)
--- NOTE | 2023-09-13 12:46 | Hospitalist Progress Note ---
Date of Service September 13, 2023 Assessment & Plan (1) Severe sepsis: Plan: 68 year old man with history significant for mild , hypertension, bronchial asthma/allergic eosinophilia/allergic bronchopulmonary aspergillosis with elevated IgE on chronic steroid Rx, JOANN status post surgery (CPAP intolerance), CIDP outpatient IVIG infusions, past tobacco abuse who presented with worsening chronic hand pain/back pain, weakness, shortness of breath. Found to have Severe sepsis with SIRS plus lactic acidosis Immunocompromised patient Staph aureus bacteremia on blood culture from admission PCR does not show MRSA. Hence MSSA bacteremia Repeat Blood culture today Lumbar MR noted multilevel degenerative changes with severe canal stenosis and severe bilateral neuroforaminal stenosis Hand CT Right noted severe narrowing of radiocarpal joint and intercarpal joints with subchondral erosions, partial collapse of wrist joint. Less likely septic joint Hand CT left noted severe narrowing with mod sclerosis, subchondral cyst in radiocarpal and Intercarpal joints. Differential considerations include septic joint vs gout vs erosive OA Ortho eval noted. Ortho does not think Wrists are cause of sepsis. Patient did have a recent UTI with urine culture growing MSSA on 08/23/23 UA this admission was unremarkable Follow up TTE done today to assess for Endocarditis Continue cefepime for now ID consult History of bronchial asthma/allergic eosinophilia/allergic bronchopulmonary aspergillosis with elevated IgE on chronic steroid Rx Albuterol prn Continue prednisone, montelukast, trelegy CIDP receiving outpatient IVIG infusions Outpatient follow up Mild as per records Follow up TTE Hypertension Losartan and HCTZ on hold for now Monitor JOANN status post surgery (CPAP intolerance) New onset anemia No overt bleed for now FOBT done at the ER was reported to be negative Some may be dilutional or related to sepsis Monitor Past tobacco abuse DVT prophylaxis. Lovenox subcu Full code Patient requesting updates providers. Ms. Carole Gao, contact numbers [phone]. I spent a total of 50 minutes coordinating, documenting and providing care for this patient excluding time spent in performance of separately billed services Admission and Anticipated Discharge Date Admission Date: September 12, 2023 Subjective Patient seen and examined Still reports pain in both wrists/hands L>R Reports chronic low back pain Reports mild dry cough and some shortness of breath Denied any chest pain. Denied nausea, vomiting, diarrhea, dysuria, freq urgency Physical Exam Constitutional: + well hydrated and + obese; no acute di stress Eyes: PERRL, conjunctivae normal, anicteric sclerae ENMT: external ear and nose normal, oropharynx normal Respiratory: normal respiratory effort; no respiratory distress Diminished breath sounds, +rhonchi Cardiovascular: Rate/Rhythm: regular rhythm and + tachycardic S1 S2 Gastrointestinal (Abdomen): normal bowel sounds, soft, nontender, no hepatosplenomegaly Musculoskeletal: Limited ROM of wrists, No open wounds No lumbar spine tenderness Neurologic: PERRL, EOMI, accommodation nl, no face palsy, no dysarthria Psychiatric: A+Ox3, euthymic affect Results & Data Results & Data Vital Signs (Past 12 Hours) Vital Signs Temp Pulse Pulse Resp BP BP Pulse Ox 09/13/23 12:07 36.3 C L 106 H 19 129/83 91 09/13/23 11:24 98 H 20 90 09/13/23 08:36 36.5 C 102 H 20 116/74 91 09/13/23 08:00 91 H 09/13/23 03:14 36.5 C 93 H 18 115/74 90 O2 Del Method O2 Flow Rate 09/13/23 12:07 Nasal Cannula 3 09/13/23 11:24 Room Air 09/13/23 08:36 Nasal Cannula 3 09/13/23 08:00 09/13/23 03:14 Nasal Cannula 2 Laboratory Results Abnormal lab results 09/12/23 09/13/23 Range/Units 03:52 07:15 WBC 23.71 H (4.8-10.8) K/ul RBC 3.17 L (4.70-6.10) M/uL Hgb 10.1 L (14.0-18.0) g/dl Hct 30.6 L (42.0-52.0) % RDW Std Deviation 52.8 H (36.4-46.3) fL RDW Coeff of Karishma 14.9 H (11.5-14.5) % Chloride 109 H (98-107) mmol/L BUN 39 H (6-23) mg/dl BUN/Creatinine Ratio 44.8 H (10-20) Glucose 110 H (70-99(Fasting)) mg/dl Staphylococcus sp PCR DETECTED A (NotDetected) Staph aureus (PCR) DETECTED A (NotDetected)
[2023-09-14] MEDS: IPRATROPIUM BROMIDE NEB SOLN 0.02% 0.5MG/2.5ML VIAL INH STA (00:41)
[2023-09-14] MEDS: LEVALBUTEROL 1.25 MG/3 ML NEB NEB STA (00:42)
[2023-09-14] MEDS: PROMETHAZINE HCL 12.5 MG in SODIUM CHLORIDE 0.9% 50 ML IV PRN (00:43)
[2023-09-14] MEDS: MAGNESIUM SULFATE / D5W 1 GM/100 ML BAG IV ONE (00:48)
[2023-09-14] MEDS: METOPROLOL TARTRATE 1 MG/ML VIAL IV STA (00:49)
[2023-09-14 00:58] LABS: Magnesium 2.4 mg/dl (1.7-2.4)
[2023-09-14] MEDS: FUROSEMIDE 40 MG/4 ML VIAL IV ONE (01:28)
[2023-09-14 01:51] LABS: Base Excess ABG 0.6 mEq/L (-9-1.8); HCO3 ABG 25 mmol/L (19-24); PCO2 ABG 36 mmHg (35-46); PO2 ABG 91 mmHg (80-95); pH ABG 7.44 (7.35-7.45)
[2023-09-14] MEDS ORDERED: methylPREDNISolone 125 MG/2 ML VIAL IV STA (02:08)
[2023-09-14] MEDS ORDERED: BENZONATATE 100 MG CAPSULE PO PRN (02:11)
--- NOTE | 2023-09-14 02:21 | Communication Note ---
Date of Service: September 14, 2023 0030 AM Patient complaining of shortness of breath and nausea symptoms. Respiratory distress; audible rattling, rhonchi with crackles as per RN. SBP 190s, RR 30s, heart rate 110s as per RN. Patient with moist nonproductive cough as per RN. No chest pain. Chest x-ray as per my interpretation : asymmetric pulmonary congestion right greater than the left, atelectasis, elevated right hemidiaphragm Ap Hypoxemic respiratory failure Hypertensive crisis Fluid overload Baseline ABG Stat nebs Lasix 1 dose Resume home losartan in a.m. (medication held on admission due to borderline BP) Hold home meloxicam given uncontrolled BP Patient later coughed up thick rosa with blood tinged sputum as per RN No chest pain complaints, resp nonlabored after neb and Lasix Rx as per RN. No choking/aspiration concerns as per RN AP Hemoptysis Solu-Medrol [address] of a.m. prednisone, antitussive CT chest Repeat COVID/RSV/flu swab CT chest Bilateral pulmonary infiltrates, most pronounced in the right upper lobe. This likely represent bilateral pneumonia. AP HAP Add Doxycycline to Cefepime Check MRSA swab Vancomycin in place of doxycycline if MRSA swab positive Pulmonary consult if with progressive hemoptysis 4:20 AM Patient noted to be confused and giggling as per RN. Occasionally removing monitor and condom catheter. AP Delirium Haldol as needed agitation Hold Ativan and gabapentin for now.
[2023-09-14 02:29] LABS: Allen Test Pos (Pos)
[2023-09-14] MEDS: OPTIRAY 320 100ml IV ONE (02:37)
[2023-09-14] MEDS: BENZONATATE 100 MG CAPSULE PO ONE (03:01)
[2023-09-14] MEDS: methylPREDNISolone 20 MG in SYRINGE 0 ML IV STA (03:01)
[2023-09-14] MEDS ORDERED: HALOPERIDOL LACTATE 5 MG/ML 1 ML VIAL IM PRN (04:23)
[2023-09-14] MEDS: HALOPERIDOL LACTATE 5 MG/ML 1 ML VIAL IM STA (04:37)
[2023-09-14 04:49] LABS: Hematocrit (blood only) 32.1 % (42.0-52.0); Hemoglobin 11.1 g/dl (14.0-18.0); Mean Corpuscular Hgb Conc 34.6 g/dL (32.0-36.0); Mean Corpuscular Volume 92.5 fL (80.0-100.0); Platelet Count 268 K/uL (130-400); RDW Coefficient of Variation 14.8 % (11.5-14.5); RDW Standard Deviation 50.1 fL (36.4-46.3); Red Blood Count 3.47 M/uL (4.70-6.10); White Blood Count 19.73 K/ul (4.8-10.8)
[2023-09-14 05:06] LABS: BUN Creatinine Ratio 39.8 (10-20); Calcium 9.6 mg/dl (8.6-10.3); Creatinine Clr Calc Pharmacy 98.5 ml/min; Est GFR (African American) 101.6 ml/min; Est GFR (Non-African American) 87.6 ml/min; Potassium 3.9 mmol/L (3.5-5.1)
--- NOTE | 2023-09-14 05:13 | CT Scan Report ---
Exam(s): CT CHEST With Contrast IV Amt: 90 ML OPTIRAY 320 EXAM: CT Chest With Intravenous Contrast CLINICAL HISTORY: Reason for exam: hemoptysis. TECHNIQUE: Axial computed tomography images of the chest with intravenous contrast. CTDI is 28.04 mGy and DLP is 966.56 mGy-cm. Automated exposure control was utilized for the study. A dose lowering technique was utilized adhering to the principles of ALARA. CONTRAST: Patient received 90 ML OPTIRAY 320 of IV contrast COMPARISON: No relevant prior studies available. FINDINGS: Lungs: Extensive bilateral pulmonary infiltrates, most pronounced in the right upper lobe. These likely represent bilateral pneumonia. No pulmonary mass or nodule. Pleural space: There is small right pleural fluid accumulation. No pneumothorax. Heart: Unremarkable. No cardiomegaly. No significant pericardial effusion. Heavy coronary artery calcifications. Bones/joints: Unremarkable. No acute fracture. No dislocation. Soft tissues: Unremarkable. Vasculature: Unremarkable. No thoracic aortic aneurysm. Lymph nodes: Unremarkable. No enlarged lymph nodes. IMPRESSION: Bilateral pulmonary infiltrates, most pronounced in the right upper lobe. This likely represent bilateral pneumonia. Electronically signed by: Audi Burks MD 09/14/23 05:13 AM
[2023-09-14 05:55] LABS: Magnesium 2.4 mg/dl (1.7-2.4)
[2023-09-14] MEDS: DOXYCYCLINE HYCLATE 100 MG in DEXTROSE 5% MINI-B 100 ML IV STA (06:03)
--- NOTE | 2023-09-14 06:40 | XRay Report ---
XR chest 1V portable CLINICAL HISTORY: Shortness of breath. COMPARISON STUDY: Chest radiograph and chest CT September 11, 2023. FINDINGS: There is no pneumothorax or pleural effusion. There has been interval development of asymme tric interstitial thickening and alveolar opacities within the right lung. No consolidation within th e left lung. Mild pulmonary vascular congestion. Cardiomediastinal silhouette is stable. IMPRESSION: Interval development of asymmetric interstitial thickening and alveolar opacities within the right lung. The findings could reflect pneumonia or asymmetric pulmonary edema. ACT 112: Negative or not required by law. Electronically signed by: Zaheer Alfaro M.D. 09/14/2023 6:37 AM
[2023-09-14] MEDS ORDERED: metroNIDAZOLE 500 MG TAB PO SCH (09:00)
[2023-09-14] MEDS: metroNIDAZOLE 500 MG/100 ML BAG IV SCH (10:06)
--- NOTE | 2023-09-14 11:21 | Cardiology Consultation ---
Date of Consultation September 14, 2023 Assessment & Plan (1) MSSA bacteremia: (2) Severe sepsis: (3) Acute hypoxemic respiratory failure: (4) Bilateral pneumonia: (5) Aortic stenosis: (6) Diminished pulses in lower extremity: Plan 68-year-old male with MSSA bacteremia (source not well-defined: UTI, septic arthritis, pneumonia?), severe sepsis, acute hypoxic respiratory failure with CT evidence of bilateral pneumonia, possible aspiration. Cardiology consultation requested due to aortic stenosis and question regarding possible endocarditis. There is no evidence of vegetation per 2D transthoracic echocardiogram, however, this does not exclude the possibility of small vegetation. Moderate aortic stenosis noted which has progressed from most recent echocardiogram reviewed in the [facility] medical record. Transesophageal echocardiogram will be considered if patient's respiratory status improves. Currently, not a candidate for procedure due to ongoing hypoxia and possible recent aspiration. Continue antibiotic therapy as per internal medicine. Repeat blood cultures without growth x 24 hours. Recommend aspiration precautions. Continue cardiovascular medications including losartan, atorvastatin, and metoprolol succinate. Statin therapy may be held during hospitalization if needed. Subcutaneous Lovenox for DVT prophylaxis. Hold Mobic at this time. Nursing staff able to obtain Doppler pulses of the left lower extremity. I have ordered an arterial duplex for further evaluation. I spent a total of 60 minutes on the date of service in preparation, delivery, and documentation of the care provided to this patient, excluding any time spent in the performance of separately billed services. History of Present Illness Reason for Consultation: Sepsis Hypertension Requesting Physician: Rajinder Hospitalist Attending Physician: James Colmenares MD History of Present Illness This is a 68-year-old immunocompromised male who presented to [facility] emergency department on 09/11/2023 due to shortness of breath, increase in chronic peripheral edema, back pain, and abdominal discomfort. Patient was found to be septic growing Staph aureus in 2/2 blood cultures. Septic arthritis ruled out by orthopedics (patient had bilateral wrist injuries recently). Patient had a recent UTI outpatient, urine culture at the time growing MSSA, 08/23/2023--UA this admission unremarkable. Echocardiogram was ordered to rule out endocarditis. Imaging revealed a normal LVEF of 60 to 65% with borderline concentric LVH and grade 1 diastolic dysfunction. Possibly bicuspid aortic valve with moderate aortic stenosis noted. Mild MR and TR. There is no evidence of mass or vegetation. Around midnight this morning, 09/13, Patient complained of worsening shortness of breath and nausea. Patient was tachypneic. Blood pressures were hypertensive with systolics in the 190s. Heart rates in the 110s. CTA of the chest showed bilateral pneumonia, pulmonary infiltrates more pronounced in right upper lobe. Heavy coronary artery calcifications were also seen on the study. Patient was given IV Lasix, 40 mg x 1. Home dose losartan was resumed. Currently, patient resting comfortably. Denies chest pain or shortness of breath. Oxygen saturation greater than 93% on 10 L aerosol mask. present at bedside. Patient denies chest pain or heaviness. Notes discomfort involving his left wrist as well as chronic bilateral lower extremity discomfort related to history of neuropathy. 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 States left lower extremity always feels cold. Diminished pulses noted on exam. Nursing staff reports possible aspiration last night prior to becoming hypoxic. Patient apparently was eating in a 45 degree semirecumbent position. Telemetry reveals sinus rhythm 90-100 bpm with occasional PVCs. Outpatient cardiac medications include: Hydralazine 25 mg every 4 hours as needed. Hydrochlorothiazide 25 mg daily with an additional 12.5 mg in the morning on days that he receives IVIG. Losartan 50 mg daily Metoprolol succinate 25 mg daily, takes 100 mg on days that he receives IVIG. 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, on IVIG-- follows with neurology Hyperlipidemia Heavy coronary artery calcification per CT of the chest 09/14/2023 at [facility] Allergies Allergy/AdvReac Type Severity Reaction Status Date / Time amoxicillin AdvReac Intermediate made me Verified 09/12/23 08:49 feel weird Home Medications Medication Instructions Recorded Confirmed Type albuterol sulfate 2.5 mg/3 mL 1 vial continuous nebulization Q4 08/13/18 09/12/23 History (0.083 %) solution for nebulization PRN Shortness Of Breath Or Wheezing albuterol sulfate 90 mcg/actuation 2 puff inhalation Q4 PRN Shortness 08/13/18 09/12/23 History aerosol inhaler Of Breath Or Wheezing fluticasone 500 mcg-salmeterol 50 1 puff inhalation BID 08/13/18 09/12/23 History mcg/dose blistr powdr for inhalation meloxicam 7.5 mg tablet 7.5 mg PO DAILY 08/13/18 09/12/23 History metaxalone 800 mg tablet 800 mg PO TID PRN Muscle Spasm 08/13/18 09/12/23 History metoprolol succinate 25 mg 25 mg PO UD 08/13/18 09/12/23 History tablet,extended release 24 hr mometasone 50 mcg/actuation nasal 2 spray intranasal DAILY 08/13/18 09/12/23 History spray montelukast 10 mg tablet 10 mg PO QAM 08/13/18 09/12/23 History azelastine 137 mcg (0.1 %) nasal 2 spray intranasal BID 05/10/20 09/12/23 History spray aerosol prednisone 10 mg tablet 10 - 30 mg PO QAM 05/10/20 09/12/23 History pseudoephedrine-guaifenesin ER 60 1 tab PO BID PRN Congestion 05/10/20 09/12/23 History mg-600 mg tablet,extend release 12hr (Mucinex D) aspirin-caffeine 400 mg-32 mg See Rx Instructions .Route .COMPLEX 09/15/21 09/12/23 History tablet (Anacin) cyclobenzaprine 5 mg tablet 5 mg PO BID PRN Muscle Spasm 09/15/21 09/12/23 History duloxetine 60 mg capsule,delayed 60 mg PO DAILY 09/15/21 09/12/23 History release gabapentin 100 mg capsule 300 mg PO HS 09/15/21 09/12/23 History hydrochlorothiazide 25 mg tablet 25 mg PO QAM 09/15/21 09/12/23 History mepolizumab 100 mg subcutaneous 0 mg subcut UD 09/15/21 09/12/23 History solution (Nucala) multivitamin 1 tab PO DAILY 09/15/21 09/12/23 History tiotropium bromide 2.5 2 puff inhalation QAM 09/15/21 09/12/23 History mcg/actuation mist for inhalation (Spiriva Respimat) atorvastatin 10 mg tablet 10 mg PO QAM 09/12/23 09/12/23 History cholecalciferol (vitamin D3) 25 25 mcg PO QAM 09/12/23 09/12/23 History mcg (1,000 unit) capsule (Vitamin D3) hydralazine 25 mg tablet 25 mg PO Q4H PRN BP over 160/100 09/12/23 09/12/23 History hydrochlorothiazide 12.5 mg capsule See Rx Instructions .Route .COMPLEX 09/12/23 09/12/23 History losartan 25 mg tablet 50 mg PO QAM 09/12/23 09/12/23 History naproxen 500 mg tablet 500 mg PO BID pain 09/12/23 09/12/23 History omega-3 fatty acids-vitamin E 1 cap PO QAM 09/12/23 09/12/23 History 1,000 mg capsule riboflavin (vitamin B2) 100 mg 400 mg PO QAM 09/12/23 09/12/23 History tablet (Vitamin B-2) Patient History Medical History Ambulates with cane Chronic sinusitis Long-term current use of steroids Allergic bronchopulmonary aspergillosis JOANN (obstructive sleep apnea) no device Asthma inhaler daily and prn Benign essential HTN HTN (hypertension) Hernia Surgical History History of colonoscopy History of tooth extraction History of tonsillectomy Status post uvulopalatopharyngoplasty History of ear surgery mastoid sx S/P hernia surgery Family History Grandfather (Paternal) Family history of diabetes mellitus Grandfather (Maternal) Family history of diabetes mellitus Family history of esophageal cancer Other Asthma No family history of adverse response to anesthesia Social History Smoking Status: Former smoker Second Hand Exposure: No; Do You Dip or Chew Tobacco: No (quit 10 years ago); Hx Alcohol Use: Yes Alcohol type: beer Hx Substance Use: No Preferred Language: Urdu Communication Ability: Effective 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: No Beliefs That Will Affect Care: None Current Living Situation: Spouse current occupational status: employed Other Information That Helps Us Care for You: No Feels Safe at Home: Yes Safety Concerns: Feels Safe At This Time Assistive Devices: Cane Review of Systems Review of Systems: All systems reviewed & are unremarkable except as noted in Subjective Physical Exam Constitutional: well nourished and + ill appearing; no acute distress Respiratory: no respiratory distress, no labored breathing and no retractions Auscultation: + rhonchi and + wheezes Cardiovascular: Rate/Rhythm: regular rate and regular rhythm Heart Sounds: normal S1, normal S2 and + murmur (2/6 systolic ejection murmur) Vessels: radial pulses present; no JVD, no carotid bruit, + posterior tibial pulses abnormal (left lower extremity distal pulses are not palpable) and + dorsalis pedis pulses abnormal (Left lower extremity disc pulses are not palpable) Gastrointestinal (Abdomen): Inspection/Auscultation: normal bowel sounds; abdomen not distended Percussion/Palpation: abdomen soft; abdomen nontender, no guarding and abdomen not rigid Neurologic: CN's II-XI intact bilaterally and moves all extremities; no focal motor deficits Results & Data Vital Signs (Past 12 Hours) Vital Signs Temp Pulse Pulse Resp BP BP Pulse Ox 09/14/23 10:56 36.9 C 96 H 20 142/87 H 98 09/14/23 08:10 36.8 C 97 H 21 158/95 H 96 09/14/23 07:50 09/14/23 02:50 36.6 C 112 H 18 157/82 H 90 09/14/23 01:27 104 H 150/90 H 09/14/23 01:06 104 H 150/90 H 93 09/14/23 00:49 25 H 94 09/14/23 00:49 109 H 196/97 H O2 Del Method O2 Flow Rate 09/14/23 10:56 Aerosol Mask 10 09/14/23 08:10 Oxymask 10 09/14/23 07:50 Oxymask 10 09/14/23 02:50 Oxymask 10 09/14/23 01:27 09/14/23 01:06 Oxymask 6 09/14/23 00:49 Oxymask 6 09/14/23 00:49 Laboratory Results Cardiac Enzymes 09/14/23 Range/Units 04:34 B-Natriuretic Peptide 215 H (0-100) pg/ml Coagulation 09/14/23 Range/Units 04:34 B-Natriuretic Peptide 215 H (0-100) pg/ml CBC 09/14/23 Range/Units 04:34 WBC 19.73 H (4.8-10.8) K/ul RBC 3.47 L (4.70-6.10) M/uL Hgb 11.1 L (14.0-18.0) g/dl Hct 32.1 L (42.0-52.0) % Plt Count 268 (130-400) K/uL Comprehensive Metabolic Panel 09/14/23 Range/Units 04:34 Sodium 138 (136-145) mmol/L Potassium 3.9 (3.5-5.1) mmol/L Chloride 103 (98-107) mmol/L Carbon Dioxide 23 (21-32) mmol/L BUN 35 H (6-23) mg/dl Creatinine 0.88 (0.6-1.4) mg/dl Glucose 118 H (70-99(Fasting)) mg/dl Calcium 9.6 (8.6-10.3) mg/dl Intake and Output 09/13/23 09/14/23 09/14/23 22:59 06:59 14:59 Intake Total 730 / 880.5 150.5 / 880.5 100 / 100 Output Total 500 / 2560 1950 / 2560 Balance 230 / -1679.5 -1799.5 / -1679.5 100 / 100 Intake: IV 150.5 / 150.5 100 / 100 Doxycycline Hyclate 100 mg In 100 / 100 Dextrose 5% Mini-B 100 ml @ 50 mls/hr IV NOW STA Rx#:[id number] Magnesium Sulfate / D5w 1 gm In 100 / 100 100 ml @ 50 mls/hr IV ONE ONE Rx#:[id number] Promethazine HCl 12.5 mg In 50.5 / 50.5 Sodium Chloride 0.9% 50 ml @ 202 mls/hr IV Q6H PRN Rx#: [id number] Oral 730 / 730 0 / 730 Output: Urine 500 / 610 Urine Amount (Catheter) 1949 External 1949 Other: # Unmeasured Voids 275 1 Weight 101.6 kg Weight Measurement Method Built in [facility] Diagnostic Findings OUTPATIENT ECHO 09/26/2022 The examination is adequate to evaluate the referral indication. The left ventricular cavity size is normal. The LV wall thickness is borderline increased (concentric). The left ventricular wall motion is normal. The qualitative LV ejection fraction is 55-59% (normal). The left ventricular diastolic function is mildly abnormal (grade I). The aortic valve is possibly bicuspid. The aortic valve is moderately calcified. Mild aortic valve stenosis is present. The aortic root and proximal ascending aorta are normal sized. (4) Bilateral pneumonia Pneumonia type: aspiration pneumonia Aspiration pneumonia type: unspecified Lung location: unspecified part of lung Qualified Code(s): J69.0 - Pneumonitis due to inhalation of food and vomit (5) Aortic stenosis Cardiac valve disease etiology: nonrheumatic Qualified Code(s): I35.0 - Nonrheumatic aortic (valve) stenosis
[2023-09-14 11:25] LABS: Influenza A virus by PCR Negative (Neg); Influenza B virus by PCR Negative (Neg); RSV by PCR Negative (Neg); SARS CoV2 RNA(COVID-19) Ceph NEGATIVE (Negative)
[2023-09-14] MEDS: IPRATROPIUM BROMIDE NEB SOLN 0.02% 0.5MG/2.5ML VIAL INH SCH (11:26)
[2023-09-14] MEDS: LEVALBUTEROL 1.25 MG/3 ML NEB NEB SCH (11:26)
--- NOTE | 2023-09-14 13:44 | Ultrasound Report ---
LEFT LOWER EXTREMITY ARTERIAL DOPPLER ULTRASOUND CLINICAL HISTORY: Diminished LLE pulses. COMPARISON STUDY: No previous studies for comparison. TECHNIQUE: Color and duplex Doppler sonography of the arterial system of the left lower extremity was performed. Ankle to brachial indices were not obtained given portable study. FINDINGS: No elevated velocities were identified within the left lower extremity. Mild atheroscleroti c plaque was noted. The vessels were patent. There is triphasic flow within the left common femoral, superficial femoral and popliteal arteries. There was biphasic flow within the left calf vessels. IMPRESSION: 1. Mild atherosclerotic plaque within the left lower extremity without evidence for a hemodynamically significant stenosis. 2. Patent left lower extremity vessels. ACT 112: Negative or not required by law. Electronically signed by: Zaheer Alfaro M.D. 09/14/2023 1:43 PM
[2023-09-14] MEDS: predniSONE 10 MG TABLET PO SCH (14:54)
[2023-09-14] MEDS: LOSARTAN POTASSIUM 50 MG TAB PO SCH (14:55)
--- NOTE | 2023-09-14 15:19 | Pulmonary Consultation ---
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 I suspect the urinary tract infection was likely hematogenous seeding. He had a surface echocardiogram which did not reveal endocarditis and is currently on antimicrobial therapy but developed fairly acute shortness of breath with a new oxygen requirement last evening. The differential would include hematogenous seeding of the lungs with bacteremia, potential antibiotic affect, pulmonary hemorrhage, or atypical pulmonary edema. Given his immunocompromise state he is at risk for unusual infections including Legionella and PJP however seems more likely that this is related to his staph bacteremia. He is responded fairly rapidly to diuretics which would make an infectious etiology somewhat less likely and would favor either pulmonary hemorrhage or fluid overload. Recommendations: 1. Diffuse pulmonary infiltrates: Differential as noted above. At this point time would recommend continue supportive care with antibiotic therapy (see comme nts below), and diuresis. Suspect he will need a transesophageal echocardiogram at some point, especially should his blood cultures remain positive 2. Infectious disease consultation has been requested. Think this is appropriate. In the meantime we will check urinary Legionella antigen, galactomannan, Fungitell, and await procalcitonin. Defer antibiotics to ID. 3. We did discuss that bronchoscopy can potentially be considered however the patient's oxygen requirement is reasonably high currently and given the fact that he is clinically improving I think we hold off for now. Should he d eteriorate, repeat evaluation may be warranted. 4. Will check CBC with differential to evaluate for eosinophilia. He did receive daptomycin for period of time which can be associated with pulmonary infiltrates, typically with eosinophilia. I think he does not need antipseudomonal coverage given that we already know that this is an MSSA bacteremia and would favor transition to Rocephin with discontinuation of doxycycline Flagyl and cefepime however will defer to ID. 5. Hypoxemia: Continue supplemental oxygen titrated to keep saturations at or above 88%. The above recommendations and plan were extensively discussed with the patient as well as his at bedside and clinical nurse at bedside. Questions were answered to the best my ability. They expressed understanding and are in agr eement with plan as outlined. Thanks for the opportunity participating in the care of this patient. Will continue to follow with you History of Present Illness Attending Physician: James Colmenares MD History of Present Illness Asked by hospitalist to assist in evaluation management this patient with hypoxemic respiratory failure and diffuse pulmonary infiltrates. History is obtained from discussion with patient as well as review of electronic medical record. Patient is a 68-year-old male with about a 39-46-fxtr-year history of tobacco abuse who quit smoking 40 years ago carries a diagnosis of allergic bronchopulmonary aspergillosis diagnosed through [facility] pulmonary and allergy immunology. Those records are not available to review the patient states he has been steroid-dependent for years and typically takes about 10 mg a day. He also has a history of chronic inflammatory demyelinating polyneuropathy. He presented to the emergency room 09/11 with complaints of progressive right-sided wrist pain and swelling. Developed progressive dysuria and an outpatient urine culture grew Staph aureus. The patient was prescribed a course of Bactrim. Due to persistent pain in his wrist he was brought to the emergency room. He was found to be in severe sepsis with an elevated lactate. He was treated with daptomycin and cefepime. He had dedicated CT imaging of his wrist performed and an orthopedic consultation. He did not feel that the joint was septic and required no surgical intervention. Yesterday evening the patient developed progressive shortness of breath requiring transition to high flow oxygen. CT scan demonstrated diffuse pulmonary infiltrates. He was given 1 dose of Lasix and a blood gas obtained. He did have some mild blood-tinged phlegm at that point in time and was given an additional dose of Solu-Medrol. Doxycycline was added to his cefepime pulmonary was consulted. Since the pulmonary consult, the patient and his bedside nurse reports that he is doing much better. He is been able to wean down to 6 L nasal cannula. They are giving him some additional bronchodilators. He does feel congested in his chest. He was seen by cardiology and had a surface echocardiogram performed which revealed moderate aortic stenosis progressed from prior, however they were unable to exclude vegetations. No clear vegetation was identified. Surveillance cultures from the are pending with no growth to date. Allergies Allergy/AdvReac Type Severity Reaction Status Date / Time amoxicillin AdvReac Intermediate made me Verified 09/12/23 08:49 feel weird Home Medications Medication Instructions Recorded Confirmed Type albuterol sulfate 2.5 mg/3 mL 1 vial continuous nebulization Q4 08/13/18 09/12/23 History (0.083 %) solution for nebulization PRN Shortness Of Breath Or Wheezing albuterol sulfate 90 mcg/actuation 2 puff inhalation Q4 PRN Shortness 08/13/18 09/12/23 History aerosol inhaler Of Breath Or Wheezing fluticasone 500 mcg-salmeterol 50 1 puff inhalation BID 08/13/18 09/12/23 History mcg/dose blistr powdr for inhalation meloxicam 7.5 mg tablet 7.5 mg PO DAILY 08/13/18 09/12/23 History metaxalone 800 mg tablet 800 mg PO TID PRN Muscle Spasm 08/13/18 09/12/23 History metoprolol succinate 25 mg 25 mg PO UD 08/13/18 09/12/23 History tablet,extended release 24 hr mometasone 50 mcg/actuation nasal 2 spray intranasal DAILY 08/13/18 09/12/23 History spray montelukast 10 mg tablet 10 mg PO QAM 08/13/18 09/12/23 History azelastine 137 mcg (0.1 %) nasal 2 spray intranasal BID 05/10/20 09/12/23 History spray aerosol prednisone 10 mg tablet 10 - 30 mg PO QAM 05/10/20 09/12/23 History pseudoephedrine-guaifenesin ER 60 1 tab PO BID PRN Congestion 05/10/20 09/12/23 History mg-600 mg tablet,extend release 12hr (Mucinex D) aspirin-caffeine 400 mg-32 mg See Rx Instructions .Route .COMPLEX 09/15/21 09/12/23 History tablet (Anacin) cyclobenzaprine 5 mg tablet 5 mg PO BID PRN Muscle Spasm 09/15/21 09/12/23 History duloxetine 60 mg capsule,delayed 60 mg PO DAILY 09/15/21 09/12/23 History release gabapentin 100 mg capsule 300 mg PO HS 09/15/21 09/12/23 History hydrochlorothiazide 25 mg tablet 25 mg PO QAM 09/15/21 09/12/23 History mepolizumab 100 mg subcutaneous 0 mg subcut UD 09/15/21 09/12/23 History solution (Nucala) multivitamin 1 tab PO DAILY 09/15/21 09/12/23 History tiotropium bromide 2.5 2 puff inhalation QAM 09/15/21 09/12/23 History mcg/actuation mist for inhalation (Spiriva Respimat) atorvastatin 10 mg tablet 10 mg PO QAM 09/12/23 09/12/23 History cholecalciferol (vitamin D3) 25 25 mcg PO QAM 09/12/23 09/12/23 History mcg (1,000 unit) capsule (Vitamin D3) hydralazine 25 mg tablet 25 mg PO Q4H PRN BP over 160/100 09/12/23 09/12/23 History hydrochlorothiazide 12.5 mg capsule See Rx Instructions .Route .COMPLEX 09/12/23 09/12/23 History losartan 25 mg tablet 50 mg PO QAM 09/12/23 09/12/23 History naproxen 500 mg tablet 500 mg PO BID pain 09/12/23 09/12/23 History omega-3 fatty acids-vitamin E 1 cap PO QAM 09/12/23 09/12/23 History 1,000 mg capsule riboflavin (vitamin B2) 100 mg 400 mg PO QAM 09/12/23 09/12/23 History tablet (Vitamin B-2) Patient History Medical History Ambulates with cane Chronic sinusitis Long-term current use of steroids Allergic bronchopulmonary aspergillosis JOANN (obstructive sleep apnea) no device Asthma inhaler daily and prn Benign essential HTN HTN (hypertension) Hernia Surgical History History of colonoscopy History of tooth extraction History of tonsillectomy Status post uvulopalatopharyngoplasty History of ear surgery mastoid sx S/P hernia surgery Family History Grandfather (Paternal) Family history of diabetes mellitus Grandfather (Maternal) Family history of diabetes mellitus Family history of esophageal cancer Other Asthma No family history of adverse response to anesthesia Social History Smoking Status: Former smoker Second Hand Exposure: No; Do You Dip or Chew Tobacco: No (quit 10 years ago); Hx Alcohol Use: Yes Alcohol type: beer Hx Substance Use: No Preferred Language: [place] Communication Ability: Effective Jig Builder Required: No Beliefs That Will Affect Care: None Current Living Situation: Spouse current occupational status: employed Other Information That Helps Us Care for You: No Feels Safe at Home: Yes Safety Concerns: Feels Safe At This Time Assistive Devices: Cane Review of Systems Review of Systems: Please refer to hospitalist's notes. No additions or deletions Physical Exam Constitutional: WD/WN, vitals as above Neck: trachea midline, no thyromegaly Respiratory: normal respiratory effort, lungs clear to auscultation Cardiovascular: RRR, no murmur, no edema Gastrointestinal (Abdomen): normal bowel sounds, soft, nontender, no hepatosplenomegaly Musculoskeletal: Extremities: extremities normal to inspection Skin: no rashes, warm and dry Neurologic: Nonfocal exam Lymphatic: no cervical lymphadenopathy Results & Data Results & Data Vital Signs (Past 12 Hours) Vital Signs Temp Pulse Pulse Resp BP Pulse Ox O2 Del Method 09/14/23 10:56 36.9 C 96 H 20 142/87 H 98 Aerosol Mask 09/14/23 08:10 36.8 C 97 H 21 158/95 H 96 Oxymask 09/14/23 08:05 106 H 09/14/23 07:50 Oxymask O2 Flow Rate 09/14/23 10:56 10 09/14/23 08:10 10 09/14/23 08:05 09/14/23 07:50 10 Critical Care Results & Data Vital Signs (Past 12 Hours) Vital Signs Temp Pulse Pulse Resp BP Pulse Ox O2 Del Method 09/14/23 15:14 106 H 18 92 Nasal Cannula 09/14/23 10:56 36.9 C 96 H 20 142/87 H 98 Aerosol Mask 09/14/23 08:10 36.8 C 97 H 21 158/95 H 96 Oxymask 09/14/23 08:05 106 H 09/14/23 07:50 Oxymask O2 Flow Rate 09/14/23 15:14 5 09/14/23 10:56 10 09/14/23 08:10 10 09/14/23 08:05 09/14/23 07:50 10 Lab & Micro Results (Past 24 Hours) RBC 3.47 M/uL (4.70-6.10) L 09/14/23 WBC 19.73 K/ul (4.8-10.8) H 09/14/23 Hgb 11.1 g/dl (14.0-18.0) L 09/14/23 Hct 32.1 % (42.0-52.0) L 09/14/23 MCV 92.5 fL (80.0-100.0) 09/14/23 MCH 32.0 pg (25.0-34.0) 09/14/23 MCHC 34.6 g/dL (32.0-36.0) 09/14/23 RDW Standard Deviation 50.1 fL (36.4-46.3) H 09/14/23 RDW Coefficient of Variation 14.8 % (11.5-14.5) H 09/14/23 Plt Count 268 K/uL (130-400) 09/14/23 MPV 10.0 fL (9.4-12.4) 09/14/23 Na 138 mmol/L (136-145) 09/14/23 K 3.9 mmol/L (3.5-5.1) 09/14/23 Cl 103 mmol/L (98-107) 09/14/23 CO2 23 mmol/L (21-32) 09/14/23 Anion Gap 12 (3-11) H 09/14/23 BUN 35 mg/dl (6-23) H 09/14/23 Creatinine 0.88 mg/dl (0.6-1.4) 09/14/23 Estimated GFR ( Amer) 101.6 ml/min 09/14/23 Estimated GFR (Non-Af Amer) 87.6 ml/min 09/14/23 BUN/Creatinine Ratio 39.8 (10-20) H 09/14/23 Glu 118 mg/dl (70-99(Fasting)) H 09/14/23 Ca 9.6 mg/dl (8.6-10.3) 09/14/23 Mg 2.4 mg/dl (1.7-2.4) 09/14/23 04:34 Calcium Level 9.6 mg/dl (8.6-10.3) 09/14/23 04:34 Arterial Blood pH 7.44 (7.35-7.45) 09/14/23 01:11 Arterial Blood Partial Pressure CO2 36 mmHg (35-46) 09/14/23 01 :11 Arterial Blood Partial Pressure O2 91 mmHg (80-95) 09/14/23 01: 11 Arterial Blood HCO3 25 mmol/L (19-24) H 09/14/23 01:11 Arterial Blood Base Excess 0.6 mEq/L (-9-1.8) 09/14/23 01:11 Arterial Blood Oxygen Saturation 99.0 % (90-95) H 09/14/23 01:1 1 Blood Gas Oxygen Given 2L 09/14/23 01:11 Rafa Test Pos (Pos) 09/14/23 01:11 Microbiology 09/12/23 04:04 Aerobic Blood Culture - Final Blood Staphylococcus aureus Anaerobic Blood Culture - Final Staphylococcus aureus 09/12/23 03:52 Aerobic Blood Culture - Final Blood Staphylococcus aureus Anaerobic Blood Culture - Final Staphylococcus aureus 09/13/23 07:22 Aerobic Blood Culture - Preliminary Blood No growth in Aerobic bottle after 24 hours. Anaerobic Blood Culture - Preliminary No growth in Anaerobic bottle after 24 hours. 09/13/23 07:15 Aerobic Blood Culture - Preliminary Blood No growth in Aerobic bottle after 24 hours. Anaerobic Blood Culture - Preliminary No growth in Anaerobic bottle after 24 hours. Diagnostic Findings (Past 24 Hours) Chest X-Ray 09/14/23 00:35 XR chest 1V portable CLINICAL HISTORY: Shortness of breath. COMPARISON STUDY: Chest radiograph and chest CT September 11, 2023. FINDINGS: There is no pneumothorax or pleural effusion. There has been interval development of asymmetric interstitial thickening and alveolar opacities within the right lung. No consolidation within the left lung. Mild pulmonary vascular congestion. Cardiomediastinal silhouette is stable. IMPRESSION: Interval development of asymmetric interstitial thickening and alveolar opacities within the right lung. The findings could reflect pneumonia or asymmetric pulmonary edema. ACT 112: Negative or not required by law. Electronically signed by: Zaheer Alfaro M.D. 09/14/2023 6:[address] 09/14/23 02:13 Exam(s): CT CHEST With Contrast IV Amt: 90 ML OPTIRAY 320 EXAM: CT Chest With Intravenous Contrast CLINICAL HISTORY: Reason for exam: hemoptysis. TECHNIQUE: Axial computed tomography images of the chest with intravenous contrast. CTDI is 28.04 mGy and DLP is 966.56 mGy-cm. Automated exposure control was utilized for the study. A dose lowering technique was utilized adhering to the principles of ALARA. CONTRAST: Patient received 90 ML OPTIRAY 320 of IV contrast COMPARISON: No relevant prior studies available. FINDINGS: Lungs: Extensive bilateral pulmonary infiltrates, most pronounced in the right upper lobe. These likely represent bilateral pneumonia. No pulmonary mass or nodule. Pleural space: There is small right pleural fluid accumulation. No pneumothorax. Heart: Unremarkable. No cardiomegaly. No significant pericardial effusion. Heavy coronary artery calcifications. Bones/joints: Unremarkable. No acute fracture. No dislocation. Soft tissues: Unremarkable. Vasculature: Unremarkable. No thoracic aortic aneurysm. Lymph nodes: Unremarkable. No enlarged lymph nodes. IMPRESSION: Bilateral pulmonary infiltrates, most pronounced in the right upper lobe. This likely represent bilateral pneumonia. Electronically signed by: Audi Burks MD 09/14/23 05:13 AM Duplex Scan Lower Extremity Artery 09/14/23 12:19 LEFT LOWER EXTREMITY ARTERIAL DOPPLER ULTRASOUND CLINICAL HISTORY: Diminished LLE pulses. COMPARISON STUDY: No previous studies for comparison. TECHNIQUE: Color and duplex Doppler sonography of the arterial system of the left lower extremity was performed. Ankle to brachial indices were not obtained given portable study. FINDINGS: No elevated velocities were identified within the left lower extremity. Mild atherosclerotic plaque was noted. The vessels were patent. There is triphasic flow within the left common femoral, superficial femoral and popliteal arteries. There was biphasic flow within the left calf vessels. IMPRESSION: 1. Mild atherosclerotic plaque within the left lower extremity without evidence for a hemodynamically significant stenosis. 2. Patent left lower extremity vessels. ACT 112: Negative or not required by law. Electronically signed by: Zaheer Alfaro M.D. 09/14/2023 1:43 PM I & O Totals 24 Hours 09/13/23 09/14/23 09/15/23 06:59 06:59 06:59 Intake Total 2895 / 2895 880.5 / 880.5 200 / 200 Output Total 425 / 425 2560 / 2560 650 / 650 Balance 2470 / 2470 -1679.5 / -1679.5 -450 / -450 Cumulative 03/19/24 21:09 thru 09/14/23 15:18 Intake Total 5075.5 Output Total 3635 Balance 1440.5 RT Ventilator Mngmt (Last Documented) Ventilator Ordered Settings Respiratory Rate 18 09/14/23 15:14 Ventilator - PT Measurements Respiratory Rate 18 PG Care Time/CCT Total # of Minutes Spent Total Time Spent with Patient: Total time spent is greater than 50% in coordination of care (as documented) at patient's floor/unit and/or counseling patient: Coding Level of Care Code 20035 INT INP/OBS CARE 375MIN Diagnoses Aspiration pneumonia of both lungs, unspecified aspiration pneumonia type, unspecified part of lung J69.0 Pneumonia type: aspiration pneumonia Aspiration pneumonia type: unspecified Lung location: unspecified part of lung Acute hypoxemic respiratory failure J96.01 Long-term current use of steroids Allergic bronchopulmonary aspergillosis B44.81
--- NOTE | 2023-09-14 16:00 | Infectious Disease Consult ---
Date of Service September 14, 2023 Telehealth Information I performed this visit using a real-time telehealth connection between my location and the patients location ([facility]). After connecting through interactive tele-video, patient was identified by name and date of and/or wristband check.Patient (or authorized healthcare surgical device sales representative) was informed that this was a telemedicine visit and it was being conducted confidentially over secure lines. My office door was closed and no on e else was present in the room with me.Patient (or authorized healthcare surgical device sales representative) provided consent to proceed with the visit, expressed an understanding of privacy and security of the telemedicine visit, and gave permission to have a hospital surgical device sales representative in the room in order to assist with the visit and to conduct portions of the visit, as needed. I informed the patient (or authorized healthcare surgical device sales representative) that I reviewed their record and presented the opportunity for them to ask any questions regarding the visit today. The patient agreed to participate. 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 On Sunday09/17/2023, please discontinue all antibiotics and start on IV cefazolin only. Patient will require a transesophageal echo to investigate for endocarditis. Continue to send for blood Cx every 48 hrs until negative. I would recommend contacting orthopedic for arthrocentesis of the left wrist (which has effusion based on the CT scan findings) to investigate for septic arthritis. Thank you for consulting infectious disease. We will continue to follow. History of Present Illness History of Present Illness Mr. 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 According to both the patient and the (who is at bedside), history goes back to early August when he was diagnosed with UTI and was treated with Bactrim. Since then, his UTI symptoms resolved; however, he has been feeling tired and has been having pain in his lower back as well as bilateral hands and wrists (right more than left). He was found to be afebrile; however, his blood pressure was borderline low with tachycardia of around 111 but no hypoxia. Initial workup, showed leukocytosis of 16.4 (ANC 15.9), elevated lactic acid of 2.8, negative RVP panel and blood culture positive for MSSA (identified via [employer]) shortly after admission. Given his back pain, MRI of the lumbar spine was obtained which showed only multilevel degenerative changes with severe canal stenosis. CT of the wrists bilaterally was obtained which demonstrated severe narrowing with sclerosis and subchondral erosion in both wrists. There was partial collapse of the wrist joint on the right with mild surrounding soft tissue swelling and probable moderate joint effusion on the left. TTE was performed which showed grade 1 diastolic dysfunction with moderate valvular aortic stenosis but no vegetations. Id team was consulted for further recommendations and to help guide antibiotics. Over last night, the patient became confused and started requiring more oxygen with a CT of the chest performed showing bilateral pulmonary infiltrates more on the right side suggesting bilateral pneumonia. Allergies Allergy/AdvReac Type Severity Reaction Status Date / Time amoxicillin AdvReac Intermediate made me Verified 09/12/23 08:49 feel weird Home Medications Medication Instructions Recorded Confirmed Type albuterol sulfate 2.5 mg/3 mL 1 vial continuous nebulization Q4 08/13/18 09/12/23 History (0.083 %) solution for nebulization PRN Shortness Of Breath Or Wheezing albuterol sulfate 90 mcg/actuation 2 puff inhalation Q4 PRN Shortness 08/13/18 09/12/23 History aerosol inhaler Of Breath Or Wheezing fluticasone 500 mcg-salmeterol 50 1 puff inhalation BID 08/13/18 09/12/23 History mcg/dose blistr powdr for inhalation meloxicam 7.5 mg tablet 7.5 mg PO DAILY 08/13/18 09/12/23 History metaxalone 800 mg tablet 800 mg PO TID PRN Muscle Spasm 08/13/18 09/12/23 History metoprolol succinate 25 mg 25 mg PO UD 08/13/18 09/12/23 History tablet,extended release 24 hr mometasone 50 mcg/actuation nasal 2 spray intranasal DAILY 08/13/18 09/12/23 H istory spray montelukast 10 mg tablet 10 mg PO QAM 08/13/18 09/12/23 History azelastine 137 mcg (0.1 %) nasal 2 spray intranasal BID 05/10/20 09/12/23 History spray aerosol prednisone 10 mg tablet 10 - 30 mg PO QAM 05/10/20 09/12/23 History pseudoephedrine-guaifenesin ER 60 1 tab PO BID PRN Congestion 05/10/20 09/12/23 History mg-600 mg tablet,extend release 12hr (Mucinex D) aspirin-caffeine 400 mg-32 mg See Rx Instructions .Route .COMPLEX 09/15/21 09/12/23 History tablet (Anacin) cyclobenzaprine 5 mg tablet 5 mg PO BID PRN Muscle Spasm 09/15/21 09/12/23 Hi story duloxetine 60 mg capsule,delayed 60 mg PO DAILY 09/15/21 09/12/23 History release gabapentin 100 mg capsule 300 mg PO HS 09/15/21 09/12/23 History hydrochlorothiazide 25 mg tablet 25 mg PO QAM 09/15/21 09/12/23 History mepolizumab 100 mg subcutaneous 0 mg subcut UD 09/15/21 09/12/23 History solution (Nucala) multivitamin 1 tab PO DAILY 09/15/21 09/12/23 History tiotropium bromide 2.5 2 puff inhalation QAM 09/15/21 09/12/23 History mcg/actuation mist for inhalation (Spiriva Respimat) atorvastatin 10 mg tablet 10 mg PO QAM 09/12/23 09/12/23 History cholecalciferol (vitamin D3) 25 25 mcg PO QAM 09/12/23 09/12/23 History mcg (1,000 unit) capsule (Vitamin D3) hydralazine 25 mg tablet 25 mg PO Q4H PRN BP over 160/100 09/12/23 09/12/23 History hydrochlorothiazide 12.5 mg capsule See Rx Instructions .Route .COMPLEX 09/12/23 09/12/23 History losartan 25 mg tablet 50 mg PO QAM 09/12/23 09/12/23 History naproxen 500 mg tablet 500 mg PO BID pain 09/12/23 09/12/23 History omega-3 fatty acids-vitamin E 1 cap PO QAM 09/12/23 09/12/23 History 1,000 mg capsule riboflavin (vitamin B2) 100 mg 400 mg PO QAM 09/12/23 09/12/23 History tablet (Vitamin B-2) Patient History Medical History Ambulates with cane Chronic sinusitis Long-term current use of steroids Allergic bronchopulmonary aspergillosis JOANN (obstructive sleep apnea) no device Asthma inhaler daily and prn Benign essential HTN HTN (hypertension) Hernia Surgical History History of colonoscopy History of tooth extraction History of tonsillectomy Status post uvulopalatopharyngoplasty History of ear surgery mastoid sx S/P hernia surgery Family History Grandfather (Paternal) Family history of diabetes mellitus Grandfather (Maternal) Family history of diabetes mellitus Family history of esophageal cancer Other Asthma No family history of adverse response to anesthesia Social History Smoking Status: Former smoker Second Hand Exposure: No; Do You Dip or Chew Tobacco: No (quit 10 years ago); Hx Alcohol Use: Yes Alcohol type: beer Hx Substance Use: No Preferred Language: Turkish Communication Ability: Effective Furniture Detailer Required: No Beliefs That Will Affect Care: None Current Living Situation: Spouse current occupational status: employed Other Information That Helps Us Care for You: No Feels Safe at Home: Yes Safety Concerns: Feels Safe At This Time Assistive Devices: Cane Review of Systems Constitutional: Fatigue, but no fever or chills Cardiovascular: no chest pain, or palpitations Respiratory: Shortness of breath, no cough Gastrointestinal: No nausea, vomiting, diarrhea or abdominal pain : No dysuria or hesitancy, no urinary discharge Musculoskeletal/Skin: No muscle aches or rash Neurologic: no dizziness or headache Physical Exam Couldn't be obtained as the consult was conducted via telemed. Results & Data Vital Signs (Past 12 Hours) Vital Signs Temp Pulse Pulse Resp BP Pulse Ox O2 Del Method 09/14/23 15:37 98 H 09/14/23 15:30 36.6 C 100 H 22 129/88 96 Nasal Cannula 09/14/23 15:14 106 H 18 92 Nasal Cannula 09/14/23 10:56 36.9 C 96 H 20 142/87 H 98 Aerosol Mask 09/14/23 08:10 36.8 C 97 H 21 158/95 H 96 Oxymask 09/14/23 08:05 106 H 09/14/23 07:50 Oxymask O2 Flow Rate 09/14/23 15:37 09/14/23 15:30 5 09/14/23 15:14 5 09/14/23 10:56 10 09/14/23 08:10 10 09/14/23 08:05 09/14/23 07:50 10 Laboratory Results Microbiology: 09/11: 4/4 sets of blood culture growing MSSA 09/12: 2 sets of blood culture negative to date Diagnostic Findings Ct of the chest on 09/13: Bilateral pulmonary infiltrates, most pronounced in the right upper lobe. This likely represent bilateral pneumonia.
--- NOTE | 2023-09-14 16:14 | Hospitalist Progress Note ---
Date of Service September 14, 2023 Assessment & Plan (1) Severe sepsis: Plan: 68 year old man with history significant for mild , hypertension, bronchial asthma/allergic eosinophilia/allergic bronchopulmonary aspergillosis with elevated IgE on chronic steroid Rx, JOANN status post surgery (CPAP intolerance), CIDP outpatient IVIG infusions, past tobacco abuse who presented with worsening chronic hand pain/back pain, weakness, shortness of breath. Severe sepsis with SIRS plus lactic acidosis Immunocompromised patient MSSA bacteremia Bilateral pneumonia Cannot rule out septic arthritis Suspected infective endocarditis Acute respiratory failure with hypoxia --Blood cultures from 09/12/2023 growing MSSA --Repeat blood cultures from 09/13/2023 negative to date --ECHO: No evidence of mass or vegetation. EF 60 to 65%. Borderline concentric LVH. Grade 1 diastolic function. Attic valve is moderately calcified and possibly bicuspid. Moderate valvular aortic stenosis. Moderate mitral annular calcification. Mild mitral and tricuspid regurgitation. --CT chest:Bilateral pulmonary infiltrates, most pronounced in the right upper lobe. This likely represent bilateral pneumonia. --Urine for Legionella pending ---Serological test for histoplasma, fungitell pending --Procalcitonin 0.52 --Urine culture pending --Continue on cefepime, Flagyl, also on doxycycline Appreciate infectious disease and pulmonary input Will likely need transesophageal echo, arthrocentesis of left wrist to rule out IE and septic arthritis Aspiration precautions Continue supplemental oxygen as needed Anticoagulation on hold secondary to hemoptysis No plan for bronchoscopy currently Cardiology consulted for possible ANASTASIIA Will request Ortho to reevaluate Plan to titrate antibiotics as able Acute metabolic encephalopathy Likely secondary to above Mental status much improved Will consider brain imaging if needed Chronic Lower back Pain Likely due to spinal stenosis --Lumbar MR noted multilevel degenerative changes with severe canal stenosis and severe bilateral neuroforaminal stenosis --Hand CT Right noted severe narrowing of radiocarpal joint and intercarpal joints with subchondral erosions, partial collapse of wrist joint. Less likely septic joint --Hand CT left noted severe narrowing with mod sclerosis, subchondral cyst in radiocarpal and Intercarpal joints. Differential considerations include septic joint vs gout vs erosive OA -- Orthopedics consulted --Cautious use of pain medications H/O Bronchial asthma/allergic eosinophilia/allergic bronchopulmonary aspergillosis with elevated IgE on chronic steroid Rx Continue prednisone, montelukast, Trelegy Continue Nebs CIDP receiving outpatient IVIG infusions Outpatient follow up Hypertension Continue Losartan Resume HCTZ as able Monitor JOANN S/P surgery H/O CPAP intolerance New onset anemia Hemoptysis likely due to Pneumonia FOBT done at the ER was reported to be negative Some may be dilutional or related to sepsis Monitor CBC Past tobacco abuse per records DVT Px: Lovenox SQ--held due to hemoptysis SCDs for now Code Status Full code Admission and Anticipated Discharge Date Admission Date: September 12, 2023 Subjective Patient is seen and examined at bedside Very lethargic this morning, later improved Received Haldol overnight States feeling tired today Admits to be intermittently confused and reports chronic lower back pain Also reports dyspnea today Denies any chest pain, dizziness, nausea, vomiting, abdominal pain No other complaints Review of Systems Review of Systems: All systems reviewed & are unremarkable except as noted in Subjective Physical Exam Physical Exam: Physical Exam: Vitals signs as noted above General Appearance:Moderately built and nourished, no apparent distress Head: normocephalic, Atraumatic Eyes: normal inspection, EOMI Neck: supple, Trachea midline Respiratory/Chest:Coarse breath sounds, scattered rhonchi, crackles, No accessory muscle use Cardiovascular: S1, S2, + murmur Abdomen/GI:Soft, Non tender, Bowel sounds present Extremities/Musculoskeletal:normal inspection, 1+ edema Neurologic/Psych:AAOX3, grossly no focal neurological deficits Skin: normal color, warm Results & Data Results & Data Vital Signs (Past 12 Hours) Vital Signs Temp Pulse Pulse Resp BP Pulse Ox O2 Del Method 09/14/23 15:37 98 H 09/14/23 15:30 36.6 C 100 H 22 129/88 96 Nasal Cannula 09/14/23 15:14 106 H 18 92 Nasal Cannula 09/14/23 10:56 36.9 C 96 H 20 142/87 H 98 Aerosol Mask 09/14/23 08:10 36.8 C 97 H 21 158/95 H 96 Oxymask 09/14/23 08:05 106 H 09/14/23 07:50 Oxymask O2 Flow Rate 09/14/23 15:37 09/14/23 15:30 5 09/14/23 15:14 5 09/14/23 10:56 10 09/14/23 08:10 10 09/14/23 08:05 09/14/23 07:50 10 Laboratory Results Short CBC 09/14/23 Range/Units 04:34 WBC 19.73 H (4.8-10.8) K/ul Hgb 11.1 L (14.0-18.0) g/dl Hct 32.1 L (42.0-52.0) % Plt Count 268 (130-400) K/uL BMP 09/14/23 04:34 Sodium 138 Potassium 3.9 Chloride 103 Carbon Dioxide 23 BUN 35 H Creatinine 0.88 Glucose 118 H Calcium 9.6
[2023-09-14] MEDS: DOXYCYCLINE HYCLATE 100 MG CAP PO SCH (20:20)
[2023-09-15 04:58] LABS: Basophils # (auto) 0.03 K/uL (0.00-0.20); Basophils % (auto) 0.2 %; Eosinophils # (auto) 0.01 K/uL (0.00-0.50); Eosinophils % (auto) 0.1 %; Hematocrit (blood only) 30.7 % (42.0-52.0); Hemoglobin 10.3 g/dl (14.0-18.0); Immature Granulocytes # (auto) 0.17 K/uL (0.01-0.20); Lymphocytes # (auto) 0.82 K/uL (1.20-3.40); Lymphocytes % (auto) 4.9 %; Mean Corpuscular Hemoglobin 31.6 pg (25.0-34.0); Mean Corpuscular Hgb Conc 33.6 g/dL (32.0-36.0); Mean Corpuscular Volume 94.2 fL (80.0-100.0); Monocytes # (auto) 1.01 K/uL (0.11-0.59); Monocytes % (auto) 6.1 %; Neutrophils % (auto) 87.7 %; Platelet Count 245 K/uL (130-400); RDW Coefficient of Variation 14.7 % (11.5-14.5); RDW Standard Deviation 51.3 fL (36.4-46.3); Red Blood Count 3.26 M/uL (4.70-6.10); White Blood Count 16.64 K/ul (4.8-10.8)
[2023-09-15 05:15] LABS: BUN Creatinine Ratio 53.6 (10-20); Calcium 9.2 mg/dl (8.6-10.3); Creatinine Clr Calc Pharmacy 122.6 ml/min; Est GFR (African American) 112.3 ml/min; Est GFR (Non-African American) 96.9 ml/min; Potassium 3.8 mmol/L (3.5-5.1)
[2023-09-15] MEDS ORDERED: MOMETASONE FUROATE SCH (09:00)
--- NOTE | 2023-09-15 09:15 | Pulmonology Progress Note ---
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 I suspect the urinary tract infection was likely hematogenous seeding. He had a surface echocardiogram which did not reveal endocarditis and is currently on antimicrobial therapy but developed fairly acute shortness of breath with a new oxygen requirement last evening. The differential would include hematogenous seeding of the lungs with bacteremia, potential antibiotic affect, pulmonary hemorrhage, or atypical pulmonary edema. Secondary ARDS secondary to bacteremia is also a possibility. Given his immunocompromise state he is at risk for unusual infections including Legionella and PJP however seems more likely that this is related to his staph bacteremia. He is responded fairly rapidly to diuretics which would make an infectious etiology somewhat less likely and would favor either pulmonary hemorrhage or fluid overload. Recommendations: 1. Diffuse pulmonary infiltrates: Differential as noted above. Seems improved. Continue diuresis and antimicrobial therapy. Will check follow-up chest x-ray. 2. Infectious disease consultation reviewed. Await Fungitell galactomannan and Legionella urinary antigen. Agree with plans for transesophageal echocardiogram, surveillance cultures, and arthrocentesis 3. If the patient's pulmonary infiltrates fail to improve or his clinical situation stagnates, could consider bronchoscopy with BAL at that point time although the yield for infectious etiologies would be low given that he is already on antibiotics. Will see how he progresses over the weekend 4. History of ABPA/asthma: No eosinophilia noted on differential. May be masked by concomitant use of steroids but seems less likely to be eosinophilic pneumonia. Continue prednisone at 10 mg daily which is his baseline dose. Unclear how the diagnosis of ABPA was made as it was no documentation. Consideration for itraconazole as a steroid sparing agent in the outpatient setting to be stable may be appropriate. This will be deferred to his allergy and pulmonary providers at [facility]. Continue ICS/LABA 5. Hypoxemia: Continue supplemental oxygen titrated to keep saturations at or above 88%. 6. Evaluation of the patient's sinus complaints per primary admitting service 7. Continue diuresis. Patient is 1.2 L positive during this hospitalization. Additional diuretics per primary service and cardiology. The above recommendations and plan were extensively discussed with the patient at bedside. Will continue to follow with you Admission and Anticipated Discharge Date Admission Date: September 12, 2023 Subjective Patient seen and examined. EMR reviewed. The patient is sitting up in bedside chair. He states he feels his breathing is better. Continues to complain of some sinus issues and postnasal drip. Review of Systems Review of Systems: All systems reviewed & are unremarkable except as noted in Subjective Physical Exam Constitutional: WD/WN, vitals as above Neck: trachea midline, no thyromegaly Respiratory: no respiratory distress, no labored breathing, no cough and not tachypneic Auscultation: + rhonchi and + wheezes; no crackles Cardiovascular: RRR, no murmur, no edema Gastrointestinal (Abdomen): normal bowel sounds, soft, nontender, no hepatosplenomegaly Musculoskeletal: Extremities: extremities normal to inspection Skin: no rashes, warm and dry Lymphatic: no cervical lymphadenopathy Results & Data Results & Data Vital Signs (Past 12 Hours) Vital Signs Temp Pulse Resp BP BP Pulse Ox O2 Del Method 09/15/23 07:44 98 H 19 98 Nasal Cannula 09/15/23 07:16 36.5 C 94 H 20 165/96 H 97 Nasal Cannula 09/15/23 03:51 36.6 C 101 H 18 172/100 H 96 Nasal Cannula 09/15/23 01:01 102 H 18 96 Nasal Cannula 09/14/23 22:38 36.6 C 107 H 18 157/108 H 96 Nasal Cannula 09/14/23 21:32 Nasal Cannula O2 Flow Rate 09/15/23 07:44 5 09/15/23 07:16 5 09/15/23 03:51 5 09/15/23 01:01 5 09/14/23 22:38 5 09/14/23 21:32 6 Critical Care Results & Data Vital Signs (Past 12 Hours) Vital Signs Temp Pulse Resp BP BP Pulse Ox O2 Del Method 09/15/23 07:44 98 H 19 98 Nasal Cannula 09/15/23 07:16 36.5 C 94 H 20 165/96 H 97 Nasal Cannula 09/15/23 03:51 36.6 C 101 H 18 172/100 H 96 Nasal Cannula 09/15/23 01:01 102 H 18 96 Nasal Cannula 09/14/23 22:38 36.6 C 107 H 18 157/108 H 96 Nasal Cannula 09/14/23 21:32 Nasal Cannula O2 Flow Rate 09/15/23 07:44 5 09/15/23 07:16 5 09/15/23 03:51 5 09/15/23 01:01 5 09/14/23 22:38 5 09/14/23 21:32 6 Lab & Micro Results (Past 24 Hours) RBC 3.26 M/uL (4.70-6.10) L 09/15/23 WBC 16.64 K/ul (4.8-10.8) H 09/15/23 Hgb 10.3 g/dl (14.0-18.0) L 09/15/23 Hct 30.7 % (42.0-52.0) L 09/15/23 MCV 94.2 fL (80.0-100.0) 09/15/23 MCH 31.6 pg (25.0-34.0) 09/15/23 MCHC 33.6 g/dL (32.0-36.0) 09/15/23 RDW Standard Deviation 51.3 fL (36.4-46.3) H 09/15/23 RDW Coefficient of Variation 14.7 % (11.5-14.5) H 09/15/23 Plt Count 245 K/uL (130-400) 09/15/23 MPV 10.0 fL (9.4-12.4) 09/15/23 Neutrophils (%) (Auto) 87.7 % 09/15/23 Lymphocytes (%) (Auto) 4.9 % 09/15/23 Monocytes # (Auto) 1.01 K/uL (0.11-0.59) H 09/15/23 Eosinophils # (Auto) 0.01 K/uL (0.00-0.50) 09/15/23 Immature Granulocyte % (Auto) 1.0 % 09/15/23 Neutrophils # (Auto) 14.60 K/uL (1.40-6.50) H 09/15/23 Lymphocytes # (Auto) 0.82 K/uL (1.20-3.40) L 09/15/23 Monocytes # (Auto) 1.01 K/uL (0.11-0.59) H 09/15/23 Eosinophils # (Auto) 0.01 K/uL (0.00-0.50) 09/15/23 Basophils # (Auto) 0.03 K/uL (0.00-0.20) 09/15/23 Immature Granulocyte # (Auto) 0.17 K/uL (0.01-0.20) 4 Na 141 mmol/L (136-145) 09/15/23 K 3.8 mmol/L (3.5-5.1) 09/15/23 Cl 108 mmol/L (98-107) H 09/15/23 CO2 24 mmol/L (21-32) 09/15/23 Anion Gap 9 (3-11) 09/15/23 BUN 37 mg/dl (6-23) H 09/15/23 Creatinine 0.69 mg/dl (0.6-1.4) 09/15/23 Estimated GFR ( Amer) 112.3 ml/min 09/15/23 Estimated GFR (Non-Af Amer) 96.9 ml/min 09/15/23 BUN/Creatinine Ratio 53.6 (10-20) H 09/15/23 Glu 108 mg/dl (70-99(Fasting)) H 09/15/23 Ca 9.2 mg/dl (8.6-10.3) 09/15/23 Lactate Dehydrogenase 221 U/L (86-244) 09/14/23 Calcium Level 9.2 mg/dl (8.6-10.3) 09/15/23 04:36 Microbiology 09/13/23 07:22 Aerobic Blood Culture - Preliminary Blood No growth in Aerobic bottle after 48 hours. Anaerobic Blood Culture - Preliminary No growth in Anaerobic bottle after 48 hours. 09/13/23 07:15 Aerobic Blood Culture - Preliminary Blood No growth in Aerobic bottle after 48 hours. Anaerobic Blood Culture - Preliminary No growth in Anaerobic bottle after 48 hours. 09/14/23 Unknown Gram Stain - Final Sputum, Expectorated 09/12/23 04:04 Aerobic Blood Culture - Final Blood Staphylococcus aureus Anaerobic Blood Culture - Final Staphylococcus aureus 09/12/23 03:52 Aerobic Blood Culture - Final Blood Staphylococcus aureus Anaerobic Blood Culture - Final Staphylococcus aureus Diagnostic Findings (Past 24 Hours) Duplex Scan Lower Extremity Artery 09/14/23 12:19 LEFT LOWER EXTREMITY ARTERIAL DOPPLER ULTRASOUND CLINICAL HISTORY: Diminished LLE pulses. COMPARISON STUDY: No previous studies for comparison. TECHNIQUE: Color and duplex Doppler sonography of the arterial system of the left lower extremity was performed. Ankle to brachial indices were not obtained given portable study. FINDINGS: No elevated velocities were identified within the left lower extremity. Mild atherosclerotic plaque was noted. The vessels were patent. There is triphasic flow within the left common femoral, superficial femoral and popliteal arteries. There was biphasic flow within the left calf vessels. IMPRESSION: 1. Mild atherosclerotic plaque within the left lower extremity without evidence for a hemodynamically significant stenosis. 2. Patent left lower extremity vessels. ACT 112: Negative or not required by law. Electronically signed by: Zaheer Alfaro M.D. 09/14/2023 1:43 PM I & O Totals 24 Hours 09/14/23 09/15/23 09/16/23 06:59 06:59 06:59 Intake Total 880.5 / 880.5 800 / 800 Output Total 2560 / 2560 1400 / 1400 Balance -1679.5 / -1679.5 -600 / -600 Cumulative 09/11/23 21:09 thru 09/15/23 05:27 Intake Total 5675.5 Output Total 4385 Balance 1290.5 RT Ventilator Mngmt (Last Documented) Ventilator Ordered Settings Respiratory Rate 19 09/15/23 07:44 Ventilator - PT Measurements Respiratory Rate 19 PG Care Time/CCT Total # of Minutes Spent Total Time Spent with Patient: Total time spent is greater than 50% in coordination of care (as documented) at patient's floor/unit and/or counseling patient: Coding Level of Care Code 29037 SUB INP/OBS CARE 3/50MIN Diagnoses Aspiration pneumonia of both lungs, unspecified aspiration pneumonia type, unspecified part of lung J69.0 Pneumonia type: aspiration pneumonia Aspiration pneumonia type: unspecified Lung location: unspecified part of lung Acute hypoxemic respiratory failure J96.01 Long-term current use of steroids Allergic bronchopulmonary aspergillosis B44.81
--- NOTE | 2023-09-15 09:38 | XRay Report ---
XR chest 1V portable CLINICAL HISTORY: hypoxemia COMPARISON STUDY: Chest radiograph and chest CT September 14, 2023. 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 No pneumot horax or pleural effusion. Right upper lobe airspace opacity has slightly improved. Left basilar opac ity persists. IMPRESSION: Slight improvement in right upper lobe airspace opacity. Persistent left basilar opacity . The findings favor multifocal pneumonia. Alveolar edema could appear similar although is considered less likely. ACT 112: Negative or not required by law. Electronically signed by: Zaheer Alfaro M.D. 09/15/2023 9:36 AM
[2023-09-15] MEDS: MOMETASONE FUROATE SCH (10:34)
[2023-09-15] MEDS: FUROSEMIDE INJ 20 MG/2 ML VIAL IV ONE (11:58)
--- NOTE | 2023-09-15 12:33 | Cardiology Progress Note ---
Date of Service September 15, 2023 Assessment & Plan (1) MSSA bacteremia: (2) Severe sepsis: (3) Acute hypoxemic respiratory failure: (4) Bilateral pneumonia: (5) Aortic stenosis: (6) Diminished pulses in lower extremity: Plan 68-year-old male with MSSA bacteremia positive cultures on 09/11 repeat no growth , severe sepsis, possible UTI , acute hypoxic respiratory failure with CT showing 09/13 bilateral pulmonary infiltrates, history of ABPA on chronic prednisone therapy , aortic stenosis, echo no vegetations, plan for ANASTASIIA once respiratory status improved likely on Sunday he is currently weaned from 5 liters to 2 liters of oxygen , CXR diffuse infiltrates / congestion slightly improved from yesterday Received lasix IV 40 yesterday and 20 Iv today will continue with IV lasix 40 today evening and 40 tomorrow morning monitor electrolytes I spent a total of 40 minutes on the date of service in preparation, delivery, and documentation of the care provided to this patient, excluding any time spent in the performance of separately billed services. Admission and Anticipated Discharge Date Admission Date: September 12, 2023 Subjective Patient seen and examined shortness of breath better than yesterday but still unable to lay flat continues to feel fatigued chills and sweat have improved Review of Systems Constitutional: + fatigue Respiratory: + cough, + dyspnea and + dyspnea on exer tion Cardiovascular: + dyspnea at rest, + orthopnea and + par oxysmal nocturnal dyspnea Gastrointestinal: + nausea and + vomiting Neurologic: + generalized weakness Physical Exam Constitutional: well nourished; no acute distress Neck: No JVD Respiratory: no respiratory distress Auscultation: + rhonchi Cardiovascular: Rate/Rhythm: regular rate and regular rhythm Heart Sounds: normal S1, normal S2 and + murmur Extremities: no edema Systolic murmur, left leg is cooler than right- normal per pt Gastrointestinal (Abdomen): Percussion/Palpation: abdomen soft Skin: no rashes, warm and dry Results & Data Vital Signs (Past 12 Hours) Vital Signs Temp Pulse Resp BP BP Pulse Ox O2 Del Method 09/15/23 10:52 36.9 C 99 H 20 155/101 H 99 Nasal Cannula 09/15/23 07:44 98 H 19 98 Nasal Cannula 09/15/23 07:16 36.5 C 94 H 20 165/96 H 97 Nasal Cannula 09/15/23 03:51 36.6 C 101 H 18 172/100 H 96 Nasal Cannula 09/15/23 01:01 102 H 18 96 Nasal Cannula O2 Flow Rate 09/15/23 10:52 5 09/15/23 07:44 5 09/15/23 07:16 5 09/15/23 03:51 5 09/15/23 01:01 5 Laboratory Results Cardiac Enzymes 09/14/23 Range/Units 15:15 Lactate Dehydrogenase 221 (86-244) U/L CBC 09/15/23 Range/Units 04:36 WBC 16.64 H (4.8-10.8) K/ul RBC 3.26 L (4.70-6.10) M/uL Hgb 10.3 L (14.0-18.0) g/dl Hct 30.7 L (42.0-52.0) % Plt Count 245 (130-400) K/uL Neut # (Auto) 14.60 H (1.40-6.50) K/uL Lymph # (Auto) 0.82 L (1.20-3.40) K/uL [place]ck[place] # (Auto) 1.01 H (0.11-0.59) K/uL Eos # (Auto) 0.01 (0.00-0.50) K/uL Baso # (Auto) 0.03 (0.00-0.20) K/uL Comprehensive Metabolic Panel 09/15/23 Range/Units 04:36 Sodium 141 (136-145) mmol/L Potassium 3.8 (3.5-5.1) mmol/L Chloride 108 H (98-107) mmol/L Carbon Dioxide 24 (21-32) mmol/L BUN 37 H (6-23) mg/dl Creatinine 0.69 (0.6-1.4) mg/dl Glucose 108 H (70-99(Fasting)) mg/dl Calcium 9.2 (8.6-10.3) mg/dl Intake and Output 09/14/23 09/15/23 09/15/23 22:59 06:59 14:59 Intake Total 500 / 800 100 / 800 100 / 100 Output Total 1000 / 1400 400 / 1400 250 / 250 Balance -500 / -600 -300 / -600 -150 / -150 Intake: IV 100 / 400 100 / 400 100 / 100 metroNIDAZOLE 500 mg In 100 ml 100 / 300 100 / 300 100 / 100 @ 100 mls/hr IV Q8H [facility] Rx#: [id number] Oral 400 / 400 Output: Urine Amount (Catheter) 1000 / 1400 400 / 1400 250 / 250 Collins/Indwelling 1000 / 1400 400 / 1400 250 / 250 Other: Other Intake Source sips sips Weight 100.5 kg Weight Measurement Method Built in [facility] (4) Bilateral pneumonia Aspiration pneumonia type: unspecified Lung location: unspecified part of l jonas Pneumonia type: aspiration pneumonia Qualified Code(s): J69.0 - Pneumonitis due to inhalation of food and vomit (5) Aortic stenosis Cardiac valve disease etiology: nonrheumatic Qualified Code(s): I35.0 - Nonrheumatic aortic (valve) stenosis
--- NOTE | 2023-09-15 15:27 | Hospitalist Progress Note ---
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 Severe sepsis with SIRS plus lactic acidosis Immunocompromised patient MSSA bacteremia Bilateral pneumonia Cannot rule out septic arthritis Suspected infective endocarditis Acute respiratory failure with hypoxia --Blood cultures from 09/12/2023 growing MSSA --Repeat blood cultures from 09/13/2023 negative to date --ECHO: No evidence of mass or vegetation. EF 60 to 65%. Borderline concentric LVH. Grade 1 diastolic function. Attic valve is moderately calcified and possibly bicuspid. Moderate valvular aortic stenosis. Moderate mitral annular calcification. Mild mitral and tricuspid regurgitation. --CT chest:Bilateral pulmonary infiltrates, most pronounced in the right upper lobe. This likely represent bilateral pneumonia. --Urine for Legionella pending ---Serological test for histoplasma, fungitell pending --Procalcitonin 0.52 --Urine culture no growth --Continue on cefepime, Flagyl, also on doxycycline Appreciate infectious disease and pulmonary input Needs transesophageal echo, arthrocentesis of left wrist to rule out IE and septic arthritis Aspiration precautions Continue supplemental oxygen as needed Anticoagulation on hold secondary to hemoptysis No plan for bronchoscopy currently Appreciate cardiology input Continue IV Lasix per cardiology Requested orthopedics to reevaluate for possible arthrocentesis to rule out septic joint Respiratory status slowly improving Acute metabolic encephalopathy Likely secondary to above Mental status back to baseline Monitor Chronic Lower back Pain Likely due to spinal stenosis --Lumbar MR noted multilevel degenerative changes with severe canal stenosis and severe bilateral neuroforaminal stenosis --Hand CT Right noted severe narrowing of radiocarpal joint and intercarpal joints with subchondral erosions, partial collapse of wrist joint. Less likely septic joint --Hand CT left noted severe narrowing with mod sclerosis, subchondral cyst in radiocarpal and Intercarpal joints. Differential considerations include septic joint vs gout vs erosive OA -- Orthopedics consulted --Cautious use of pain medications H/O Bronchial asthma/allergic eosinophilia/allergic bronchopulmonary aspergillosis with elevated IgE on chronic steroid Rx Continue prednisone, montelukast, Trelegy Continue Nebs CIDP receiving outpatient IVIG infusions Outpatient follow up Hypertension Continue Losartan Also on IV Lasix Resume HCTZ as able Monitor JOANN S/P surgery H/O CPAP intolerance New onset anemia Hemoptysis likely due to Pneumonia FOBT done at the ER was reported to be negative Also dilutional contributing Monitor CBC Past tobacco abuse per records DVT Px: Lovenox SQ--held due to hemoptysis SCDs for now Code Status Full code Admission and Anticipated Discharge Date Admission Date: September 12, 2023 Subjective Patient is seen and examined at bedside Confusion resolved Sitting in chair during my encounter Admits to have pink color expectoration Denies any significant dyspnea Feels tired Also reports chronic joint pain Was nauseous earlier today but no vomiting Denies any chest pain, dizziness, abdominal pain Saturating well on 2 L supplemental oxygen Review of Systems Review of Systems: All systems reviewed & are unremarkable except as noted in Subjective Physical Exam Physical Exam: Physical Exam: Vitals signs as noted above General Appearance:Moderately built and nourished, no apparent distress Head: normocephalic, Atraumatic Eyes: normal inspection, EOMI Neck: supple, Trachea midline Respiratory/Chest:Coarse breath sounds, scattered rhonchi, crackles, No accessory muscle use Cardiovascular: S1, S2, + murmur Abdomen/GI:Soft, Non tender, Bowel sounds present Extremities/Musculoskeletal:normal inspection, 1+ edema Neurologic/Psych:AAOX3, grossly no focal neurological deficits Skin: normal color, warm Results & Data Results & Data Vital Signs (Past 12 Hours) Vital Signs Temp Pulse Resp BP BP Pulse Ox O2 Del Method 09/15/23 12:45 106 H 15 96 Nasal Cannula 09/15/23 10:52 36.9 C 99 H 20 155/101 H 99 Nasal Cannula 09/15/23 08:55 Nasal Cannula 09/15/23 07:44 98 H 19 98 Nasal Cannula 09/15/23 07:16 36.5 C 94 H 20 165/96 H 97 Nasal Cannula 09/15/23 03:51 36.6 C 101 H 18 172/100 H 96 Nasal Cannula O2 Flow Rate 09/15/23 12:45 2 09/15/23 10:52 5 09/15/23 08:55 2 09/15/23 07:44 5 09/15/23 07:16 5 09/15/23 03:51 5 Laboratory Results Short CBC 09/15/23 Range/Units 04:36 WBC 16.64 H (4.8-10.8) K/ul Hgb 10.3 L (14.0-18.0) g/dl Hct 30.7 L (42.0-52.0) % Plt Count 245 (130-400) K/uL BMP 09/15/23 04:36 Sodium 141 Potassium 3.8 Chloride 108 H Carbon Dioxide 24 BUN 37 H Creatinine 0.69 Glucose 108 H Calcium 9.2
[2023-09-15] MEDS: FUROSEMIDE 40 MG/4 ML VIAL IV SCH (16:56)
[2023-09-16 05:11] LABS: Basophils # (auto) 0.02 K/uL (0.00-0.20); Basophils % (auto) 0.1 %; Eosinophils # (auto) 0.05 K/uL (0.00-0.50); Eosinophils % (auto) 0.3 %; Hemoglobin 10.7 g/dl (14.0-18.0); Immature Granulocytes # (auto) 0.19 K/uL (0.01-0.20); Immature Granulocytes % (auto) 1.3 %; Lymphocytes # (auto) 1.32 K/uL (1.20-3.40); Lymphocytes % (auto) 9.2 %; Mean Corpuscular Hemoglobin 31.3 pg (25.0-34.0); Mean Corpuscular Hgb Conc 33.4 g/dL (32.0-36.0); Mean Corpuscular Volume 93.6 fL (80.0-100.0); Mean Platelet Volume 10.2 fL (9.4-12.4); Monocytes # (auto) 0.94 K/uL (0.11-0.59); Monocytes % (auto) 6.5 %; Neutrophils # (auto) 11.89 K/uL (1.40-6.50); Neutrophils % (auto) 82.6 %; Nucleated RBC # (auto) 0.02 K/uL (0.00-0.12); Nucleated RBC % (auto) 0.1 %; Platelet Count 269 K/uL (130-400); RDW Coefficient of Variation 14.8 % (11.5-14.5); RDW Standard Deviation 50.9 fL (36.4-46.3); Red Blood Count 3.42 M/uL (4.70-6.10); White Blood Count 14.41 K/ul (4.8-10.8)
[2023-09-16 05:23] LABS: BUN Creatinine Ratio 54.9 (10-20); Calcium 9.2 mg/dl (8.6-10.3); Creatinine Clr Calc Pharmacy 118.3 ml/min; Est GFR (Non-African American) 95.7 ml/min; Potassium 3.8 mmol/L (3.5-5.1)
--- NOTE | 2023-09-16 07:53 | Pulmonology Progress Note ---
Date of Service September 16, 2023 Assessment & Plan (1) Bilateral pneumonia: Pneumonia type: aspiration pneumonia Aspiration pneumonia type: u nspecified Lung location: unspecified part of lung Qualified Code(s): J69.0 - Pneumonitis due to inhalation of food and vomit (2) Acute hypoxemic respiratory failure: (3) Long-term current use of steroids: (4) Allergic bronchopulmonary aspergillosis: Plan Impression: 68-year-old male with history of ABPA on chronic prednisone therapy as well as CIDP with IVIG infusions admitted now with staph bacteremia after staph urinary tract infection. I suspect the urinary tract infection was likely hematogenous seeding. He had a surface echocardiogram which did not reveal endocarditis and is currently on antimicrobial therapy but developed fairly acute shortness of breath with a new oxygen requirement 09/13. The differential would include hematogenous seeding of the lungs with bacteremia, potential antibiotic adverse affect, pulmonary hemorrhage, or atypical pulmonary edema. Secondary ARDS secondary to bacteremia is also a possibility. Given his immunocompromise state he is at risk for unusual infections including Legionella and PJP however seems more likely that this is related to his staph bacteremia. He is responded fairly rapidly to diuretics which would make an infectious etiology somewhat less likely and would favor either pulmonary hemorrhage or fluid overload. His oxygen requirement has improved significantly. Recommendations: 1. Diffuse pulmonary infiltrates: Differential as noted above. Much improved. Continue diuresis and antimicrobial therapy. Will need to follow chest x-ray to completion 2. Infectious disease consultation reviewed. Await Fungitell, galactomannan, and Legionella urinary antigen. Agree with plans for transesophageal echocardiogram, surveillance cultures, and arthrocentesis 3. If the patient's pulmonary infiltrates fail to improve or his clinical situation stagnates, could consider bronchoscopy with BAL at that point time although the yield for infectious etiologies would be low given that he is already on antibiotics. Given his significant improvement, I think we can hold off for now. 4. History of ABPA/asthma: No eosinophilia noted on differential. May be masked by concomitant use of steroids but seems less likely to be eosinophilic pneumonia. Continue prednisone at 10 mg daily which is his baseline dose. Unclear how the diagnosis of ABPA was made as it was no documentation. Consideration for itraconazole as a steroid sparing agent in the outpatient setting to be stable may be appropriate. This will be deferred to his allergy and pulmonary providers at [facility]. Continue ICS/LABA 5. Hypoxemia: Significantly improved/resolved 6. Evaluation of the patient's sinus complaints per primary admitting service 7. Continue diuresis. Patient is 1.2 L positive during this hospitalization. Additional diuretics per primary service and cardiology. The above recommendations and plan were extensively discussed with the patient at bedside. Will continue to follow with you. Feel free to contact us with questions or concerns Admission and Anticipated Discharge Date Admission Date: September 12, 2023 Subjective Patient seen and examined. EMR reviewed. The patient is awake alert and lying supine in bed. He is just been taken off oxygen by nursing staff. He states he did reasonably well overnight. He is having decreasing sputum production. He is not experiencing any chest pain or palpitations. He feels his shortness of breath is improving. He has not had any hemoptysis Review of Systems 2 Review of Systems: All systems reviewed & are unremarkable except as noted in Subjective Physical Exam 2 Constitutional: WD/WN, vitals as above Neck: trachea midline, no thyromegaly Respiratory: normal respiratory effort, lungs clear to auscultation no respiratory distress, no labored breathing, no cough and not tachypneic A uscultation: no crackles Cardiovascular: RRR, no murmur, no edema Gastrointestinal (Abdomen): normal bowel sounds, soft, nontender, no hepatosplenomegaly Musculoskeletal: Extremities: extremities normal to inspection Skin: no rashes, warm and dry Lymphatic: no cervical lymphadenopathy Results & Data Results & Data Vital Signs (Past 12 Hours) Vital Signs Temp Pulse Resp BP BP Pulse Ox O2 Del Method 09/16/23 07:48 36.6 C 92 H 19 147/92 H 95 Room Air 09/16/23 07:10 97 H 20 95 Nasal Cannula 09/16/23 02:59 36.7 C 97 H 20 167/99 H 93 Nasal Cannula 09/15/23 22:58 37.2 C 104 H 20 161/98 H 92 Room Air 09/15/23 20:26 101 H 18 92 Room Air 09/15/23 19:57 Room Air 09/15/23 19:56 36.8 C 106 H 22 120/82 92 Room Air O2 Flow Rate 09/16/23 07:48 09/16/23 07:10 2 09/16/23 02:59 2 09/15/23 22:58 09/15/23 20:26 09/15/23 19:57 09/15/23 19:56 Laboratory Results 09/16/23 04:19 09/16/23 04:19 Diagnostic Findings Chest x-ray from yesterday was independently reviewed. It demonstrates improved aeration in the right lung field although there are persistent airspace opacities. PG Care Time/CCT Total # of Minutes Spent Total Time Spent with Patient: Total time spent is greater than 50% in coordination of care (as documented) at patient's floor/unit and/or counseling patient: Coding Level of Care Code 00784 SUB INP/OBS CARE 2/35MIN Diagnoses Aspiration pneumonia of both lungs, unspecified aspiration pneumonia type, unspecified part of lung J69.0 Pneumonia type: aspiration pneumonia Aspiration pneumonia type: unspecified Lung location: unspecified part of lung Acute hypoxemic respiratory failure J96.01 Long-term current use of steroids Allergic bronchopulmonary aspergillosis B44.81
[2023-09-16] MEDS: oxyCODONE HCL IR 5 MG TAB (IMMEDIATE RELEASE) PO PRN (08:52)
--- NOTE | 2023-09-16 10:08 | Orthopedic Progress Note ---
Date of Service September 16, 2023 Assessment & Plan (1) Osteoarthritis of wrists, bilateral: Plan: Because of the patient's new left arm swelling and at the request of infectious disease for aspiration of the left wrist, the left wrist was aspirated today using a dorsal approach. With palpation, the wrist joint was identified. The area was then prepped with Betadine x 2 and alcohol swab x 2. An 18-gauge needle was used to aspirate the left wrist using a dorsal approach. A scant amount of serous joint fluid was aspirated. There was also blood aspirated which may be from the needle entering the dorsal aspect of the wrist. There is no obvious purulence noted. There did not seem to be a significant wrist effusion that could be aspirated. The aspirate was sent for aerobic and anaerobic culture and sensitivity, crystal analysis, cell count. The patient may continue use of each upper extremity as he tolerates. We discussed that if there is any signs of infection within the left wrist, it may require I&D of the wrist joint. We will continue to follow for aspirate results. (2) Swelling of left wrist: Admission and Anticipated Discharge Date Admission Date: September 12, 2023 Subjective The patient states he feels he has an increase in left upper extremity swelling since earlier this morning. No specific increase in pain in the left wrist. He does not have any swelling in the right wrist. He does not recall any recent injuries to either wrists. He was seen [address] Francis who did not see any signs of infection. I was contacted by Dr. Colmenares yesterday because infectious disease had felt that an aspiration of the wrist is warranted to ensure either wrist was not the site causing the patient's sepsis. Physical Exam Constitutional: WD/WN, vitals as above no acute distress (Sitting in the bedside chair, comfortable.) Musculoskeletal: Extremities: + wrist abnormality (No pain elicited with passive range of motion of the left wrist. ) Left (Moderate swelling of the left wrist and arm. No swelling of the right arm or wrist. He does not have any specific erythema at the dorsal aspect of the wrist. There is mild erythema at the volar aspect of the wrist. No obvious warmth. Tender to palpation at the dorsal radiocarpal joint. No pain) Additional left wrist exam: No pain elicited with passive range of motion of the left wrist. Crepitation and instability noted with passive range of motion of the left wrist. No open or draining areas. Skin: no rashes, warm and dry Trauma: no evidence of skin trauma Results & Data Vital Signs (Past 12 Hours) Vital Signs Temp Pulse Resp BP BP Pulse Ox O2 Del Method 09/16/23 08:00 Room Air 09/16/23 07:48 36.6 C 92 H 19 147/92 H 95 Room Air 09/16/23 07:10 97 H 20 95 Nasal Cannula 09/16/23 02:59 36.7 C 97 H 20 167/99 H 93 Nasal Cannula 09/15/23 22:58 37.2 C 104 H 20 161/98 H 92 Room Air O2 Flow Rate 09/16/23 08:00 09/16/23 07:48 09/16/23 07:10 2 09/16/23 02:59 2 09/15/23 22:58 Laboratory Results Laboratory Tests 09/15/23 09/16/23 04:36 04:19 WBC 14.41 H Hgb 10.7 L Hct 32.0 L Neut # (Auto) 14.60 H 11.89 H (1) Osteoarthritis of wrists, bilateral Osteoarthritis type: unspecified Qualified Code(s): M19.031 - Primary osteoarthritis, right wrist; M19.032 - Primary osteoarthritis, left wrist
--- NOTE | 2023-09-16 14:38 | Hospitalist Progress Note ---
Date of Service September 16, 2023 Assessment & Plan (1) Severe sepsis: Plan: 68 year old man with history significant for mild , hypertension, bronchial asthma/allergic eosinophilia/allergic bronchopulmonary aspergillosis with elevated IgE on chronic steroid Rx, JOANN status post surgery (CPAP intolerance), CIDP outpatient IVIG infusions, past tobacco abuse who presented with worsening chronic hand pain/back pain, weakness, shortness of breath. Severe sepsis with SIRS plus lactic acidosis Immunocompromised patient MSSA bacteremia Bilateral pneumonia Cannot rule out septic arthritis Suspected infective endocarditis Acute respiratory failure with hypoxia --Blood cultures from 09/12/2023 growing MSSA --Repeat blood cultures from 09/13/2023 negative to date --ECHO: No evidence of mass or vegetation. EF 60 to 65%. Borderline concentric LVH. Grade 1 diastolic function. Attic valve is moderately calcified and possibly bicuspid. Moderate valvular aortic stenosis. Moderate mitral annular calcification. Mild mitral and tricuspid regurgitation. --CT chest:Bilateral pulmonary infiltrates, most pronounced in the right upper lobe. This likely represent bilateral pneumonia. --Urine for Legionella pending ---Serological test for histoplasma, fungitell pending --Procalcitonin 11.9 --Urine culture no growth --Continue on cefepime, Flagyl, also on doxycycline Appreciate infectious disease and pulmonary input Needs transesophageal echo, arthrocentesis of left wrist to rule out IE and septic arthritis Aspiration precautions No plan for bronchoscopy currently Appreciate cardiology input Weaned off of supplemental oxygen No hemoptysis today Will give a dose of IV Lasix today Respiratory status improving Acute metabolic encephalopathy Likely secondary to above Mental status back to baseline Monitor B/L Wrist osteoarthritis S/P left wrist arthrocentesis on 09/16/23 Follow-up sonometer fluid Cx Appreciate orthopedics input Chronic Lower back Pain Likely due to spinal stenosis --Lumbar MR noted multilevel degenerative changes with severe canal stenosis and severe bilateral neuroforaminal stenosis --Hand CT Right noted severe narrowing of radiocarpal joint and intercarpal joints with subchondral erosions, partial collapse of wrist joint. Less likely septic joint --Hand CT left noted severe narrowing with mod sclerosis, subchondral cyst in radiocarpal and Intercarpal joints. Differential considerations include septic joint vs gout vs erosive OA -- Appreciate Orthopedics Input --Cautious use of pain medications H/O Bronchial asthma/allergic eosinophilia/allergic bronchopulmonary aspergillosis with elevated IgE on chronic steroid Rx Continue prednisone, montelukast, Trelegy Continue Nebs CIDP receiving outpatient IVIG infusions Outpatient follow up Hypertension Continue Losartan Resume HCTZ as able Monitor JOANN S/P surgery H/O CPAP intolerance New onset anemia Hemoptysis likely due to Pneumonia FOBT done at the ER was reported to be negative Also dilutional contributing Monitor CBC Past tobacco abuse per records DVT Px: Lovenox SQ--held due to hemoptysis SCDs for now Code Status Full code Admission and Anticipated Discharge Date Admission Date: September 12, 2023 Subjective Patient is seen and examined at bedside States feeling better today Less cough with expectoration today Saturating well on room air Denies any chest pain, dizziness, nausea, vomiting, abdominal pain Dyspnea improving Review of Systems Review of Systems: All systems reviewed & are unremarkable except as noted in Subjective Physical Exam Physical Exam: Physical Exam: Vitals signs as noted above General Appearance:Moderately built and nourished, no apparent distress Head: normocephalic, Atraumatic Eyes: normal inspection, EOMI Neck: supple, Trachea midline Respiratory/Chest:Normal breath sounds, scattered rhonchi, No accessory muscle use Cardiovascular: S1, S2, + murmur Abdomen/GI:Soft, Non tender, Bowel sounds present Extremities/Musculoskeletal:normal inspection, 1+ edema Neurologic/Psych:AAOX3, grossly no focal neurological deficits Skin: normal color, warm Results & Data Results & Data Vital Signs (Past 12 Hours) Vital Signs Temp Pulse Resp BP BP Pulse Ox O2 Del Method 09/16/23 11:10 36.3 C L 101 H 19 111/82 95 Room Air 09/16/23 08:00 Room Air 09/16/23 07:48 36.6 C 92 H 19 147/92 H 95 Room Air 09/16/23 07:10 97 H 20 95 Nasal Cannula 09/16/23 02:59 36.7 C 97 H 20 167/99 H 93 Nasal Cannula O2 Flow Rate 09/16/23 11:10 09/16/23 08:00 09/16/23 07:48 09/16/23 07:10 2 09/16/23 02:59 2 Laboratory Results Short CBC 09/16/23 Range/Units 04:19 WBC 14.41 H (4.8-10.8) K/ul Hgb 10.7 L (14.0-18.0) g/dl Hct 32.0 L (42.0-52.0) % Plt Count 269 (130-400) K/uL BMP 09/16/23 04:19 Sodium 141 Potassium 3.8 Chloride 107 Carbon Dioxide 25 BUN 39 H Creatinine 0.71 Glucose 91 Calcium 9.2
[2023-09-16] MEDS: FUROSEMIDE 40 MG/4 ML VIAL IV ONE (14:59)
--- NOTE | 2023-09-16 17:58 | Cardiology Progress Note ---
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 Admission and Anticipated Discharge Date Admission Date: September 12, 2023 Subjective Patient seen and examined shortness of breath is improved Oxygen requirement has come down has been weaned off Results & Data Vital Signs (Past 12 Hours) Vital Signs Temp Pulse Resp BP Pulse Ox O2 Del Method O2 Flow Rate 09/16/23 15:46 36.6 C 106 H 19 117/79 93 Room Air 09/16/23 14:40 84 18 91 Room Air 09/16/23 11:10 36.3 C L 101 H 19 111/82 95 Room Air 09/16/23 08:00 Room Air 09/16/23 07:48 36.6 C 92 H 19 147/92 H 95 Room Air 09/16/23 07:10 97 H 20 95 Nasal Cannula 2 Laboratory Results CBC 09/16/23 Range/Units 04:19 WBC 14.41 H (4.8-10.8) K/ul RBC 3.42 L (4.70-6.10) M/uL Hgb 10.7 L (14.0-18.0) g/dl Hct 32.0 L (42.0-52.0) % Plt Count 269 (130-400) K/uL Neut # (Auto) 11.89 H (1.40-6.50) K/uL Lymph # (Auto) 1.32 (1.20-3.40) K/uL [place] # (Auto) 0.94 H (0.11-0.59) K/uL Eos # (Auto) 0.05 (0.00-0.50) K/uL Baso # (Auto) 0.02 (0.00-0.20) K/uL Comprehensive Metabolic Panel 09/16/23 Range/Units 04:19 Sodium 141 (136-145) mmol/L Potassium 3.8 (3.5-5.1) mmol/L Chloride 107 (98-107) mmol/L Carbon Dioxide 25 (21-32) mmol/L BUN 39 H (6-23) mg/dl Creatinine 0.71 (0.6-1.4) mg/dl Glucose 91 (70-99(Fasting)) mg/dl Calcium 9.2 (8.6-10.3) mg/dl Intake and Output 09/16/23 09/16/23 09/16/23 06:59 14:59 22:59 Intake Total 200 / 1750 660 / 660 Output Total 1975 900 / 1900 Balance -375 / -226 -340 / -1240 -900 / -1240 Intake: IV 100 / 300 100 / 100 metroNIDAZOLE 500 mg In 100 ml 100 / 300 100 / 100 @ 100 mls/hr IV Q8H [facility] Rx#: [id number] Oral 100 / 1450 560 / 560 Output: Urine Amount (Catheter) 1974 900 / 1900 Collins/Indwelling 1974 900 / 1900 Other: Weight 102.1 kg Weight Measurement Method Built in [facility] (4) Bilateral pneumonia Pneumonia type: aspiration pneumonia Aspiration pneumonia type: unspecified Lung location: unspecified part of lung Qualified Code(s): J69.0 - Pneumonitis due to inhalation of food and vomit (5) Aortic stenosis Cardiac valve disease etiology: nonrheumatic Qualified Code(s): I35.0 - Nonrheumatic aortic (valve) stenosis
--- NOTE | 2023-09-16 18:03 | Cardiology Progress Note ---
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 Admission and Anticipated Discharge Date Admission Date: September 12, 2023 Subjective Patient seen and examined has been feeling better Shortness of breath is improved Oxygen is being weaned off Review of Systems Constitutional: + fatigue and + weakness Respiratory: + cough, + dyspnea and + dyspnea on exer tion Cardiovascular: + dyspnea on exertion and + orthopnea Gastrointestinal: + nausea Musculoskeletal: + joint pain and + swelling Neurologic: + generalized weakness Endocrine: + fatigue Physical Exam Constitutional: well nourished Eyes: + anicteric sclerae Neck: trachea midline Respiratory: normal respiratory effort Auscultation: + crackles Cardiovascular: Rate/Rhythm: regular rate and regular rhythm Heart Sounds: normal S1, normal S2 and + murmur Extremities: no pedal edema Results & Data Vital Signs (Past 12 Hours) Vital Signs Temp Pulse Resp BP Pulse Ox O2 Del Method O2 Flow Rate 09/16/23 15:46 36.6 C 106 H 19 117/79 93 Room Air 09/16/23 14:40 84 18 91 Room Air 09/16/23 11:10 36.3 C L 101 H 19 111/82 95 Room Air 09/16/23 08:00 Room Air 09/16/23 07:48 36.6 C 92 H 19 147/92 H 95 Room Air 09/16/23 07:10 97 H 20 95 Nasal Cannula 2 (4) Bilateral pneumonia Pneumonia type: aspiration pneumonia Aspiration pneumonia type: unspecified Lung location: unspecified part of lung Qualified Code(s): J69.0 - Pneumonitis due to inhalation of food and vomit (5) Aortic stenosis Cardiac valve disease etiology: nonrheumatic Qualified Code(s): I35.0 - Nonrheumatic aortic (valve) stenosis
[2023-09-17 05:15] LABS: Basophils # (auto) 0.04 K/uL (0.00-0.20); Basophils % (auto) 0.2 %; Eosinophils # (auto) 0.05 K/uL (0.00-0.50); Eosinophils % (auto) 0.3 %; Hemoglobin 11.5 g/dl (14.0-18.0); Immature Granulocytes # (auto) 0.44 K/uL (0.01-0.20); Immature Granulocytes % (auto) 2.4 %; Lymphocytes # (auto) 1.39 K/uL (1.20-3.40); Lymphocytes % (auto) 7.6 %; Mean Corpuscular Hemoglobin 31.3 pg (25.0-34.0); Mean Corpuscular Hgb Conc 32.9 g/dL (32.0-36.0); Mean Corpuscular Volume 95.1 fL (80.0-100.0); Mean Platelet Volume 10.3 fL (9.4-12.4); Monocytes # (auto) 0.96 K/uL (0.11-0.59); Monocytes % (auto) 5.2 %; Neutrophils # (auto) 15.48 K/uL (1.40-6.50); Neutrophils % (auto) 84.3 %; Platelet Count 317 K/uL (130-400); RDW Coefficient of Variation 15.1 % (11.5-14.5); RDW Standard Deviation 53.7 fL (36.4-46.3); Red Blood Count 3.68 M/uL (4.70-6.10); White Blood Count 18.36 K/ul (4.8-10.8)
[2023-09-17 05:23] LABS: BUN Creatinine Ratio 54.4 (10-20); Calcium 9.4 mg/dl (8.6-10.3); Creatinine Clr Calc Pharmacy 107.4 ml/min; Est GFR (African American) 106.2 ml/min; Est GFR (Non-African American) 91.6 ml/min; Potassium 3.5 mmol/L (3.5-5.1)
--- NOTE | 2023-09-17 07:56 | XRay Report ---
XR chest 1V portable CLINICAL HISTORY: MORNING PORTABLE TECHNIQUE: Single frontal radiograph of the chest was obtained. Comparison: Comparison is made to chest radiograph 09/15/2023 FINDINGS: No lines and tubes are seen. Calcified aortic knob is seen. Airspace opacities are seen in the right greater than left lung. No evidence of pleural effusion or pneumothorax. IMPRESSION: Airspace opacities are unchanged from prior exam compatible with pneumonia. ACT 112: Negative or not required by law. Electronically signed by: Sagar Rollins M.D. 09/17/2023 7:55 AM
[2023-09-17] MEDS: FUROSEMIDE 40 MG/4 ML VIAL IV SCH (08:17)
[2023-09-17] MEDS ORDERED: LABETALOL HCL IV 5 MG/ML 20ML IV PRN (09:11)
--- NOTE | 2023-09-17 09:40 | Pulmonology Progress Note ---
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 Continues to improve from pulmonary perspective and is currently saturating well on room air. Recommendations: 1. Diffuse pulmonary infiltrates: Initial differential remains broad in a patient immunocompromised with chronic immunosuppression from prednisone in the setting of ABPA therapies. Thankfully, his infiltrative processes have significantly improved on chest x-ray. He is now requiring no oxygen. Continue to treat bacteremia and resources. Continue with diuresis 2. Legionella, Fungitell, and galactomannan still pending at this time, however much less likely with the rapid symptom/radiologic improvement noticed. 4. History of ABPA/asthma: No eosinophilia noted on differential. May be masked by concomitant use of steroids but seems less likely to be eosinophilic pneumonia. Continue prednisone at 10 mg daily which is his baseline dose. Unclear how the diagnosis of ABPA was made as it was no documentation. Consideration for itraconazole as a steroid sparing agent in the outpatient setting to be stable may be appropriate. This will be deferred to his allergy and pulmonary providers at [facility]. Continue ICS/LABA 5. Hypoxemia: Significantly improved/resolved 6. Evaluation of the patient's sinus complaints per primary admitting service 7. Continue diuresis. Additional diuretics per primary service and cardiology. Thank you for allowing us to participate in the care of this patient. Admission and Anticipated Discharge Date Admission Date: September 12, 2023 Supervising Physician Co-Signing Physician Notes I saw and evaluated the patient with Neo Storm PA-C, and agree with findings and plan as documented in the note. Patient seen and examined at bedside. Case discussed with outgoing coach wirer. At the time of examination patient was saturating 96% on room air. Not in any respiratory distress He was tachycardic in the low 100s. Overall he says that he is feeling much better. He did a walk with RT and he did not require oxygen. No headache, no blurry vision. Fair appetite Constitutional: No acute distress HEENT: EOMI, PERRLA Respiratory system: Good air entry bilaterally, no wheeze, no rhonchi, no crackles CVS: S1-S2 positive, no murmurs or gallops Abdomen: Soft, nontender, nondistended, positive bowel sounds x4 Extremities: +2 pulses bilaterally radialis/ dorsalis pedis, no cyanosis, no edema Neuro: Awake alert oriented x3 Psych: Normal mood and affect G/U: Positive Collins Plan: Chest x-ray showing significant improvement compared to before. Minimal opacity alveolar still persist Patient has responded well to diuretics. Recommend continue with antibiotics given the elevated procalcitonin. The procalcitonin could also be elevated because of bacteremia Although no eosinophilia on the periphery, eosinophilic pneumonia although the possibility could be there given the patient is on chronic steroids which can mask the eosinophilia. But given the significant improvement in the infiltrate without any significant intervention I highly doubt that being a possibility Patient is taking 10 mg prednisone for underlying ABPA. Will defer changes to the dose to outpatient pulmonary. Please note the above document was generated using voice recognition software. It may contain grammatical, syntax or spelling errors.Any formal questions or concerns about the content, text or information contained within the body of this dictation should be directly addressed to the provider for clarification. Subjective Patient was seen and evaluated by myself at bedside. He reports that he has been feeling well for respiratory standpoint. He has had no shortness of breath or chest pain. No productive cough or hemoptysis noted. Review of Systems 2 Review of Systems: Please refer to hospitalist's notes. No additions or deletions Physical Exam 2 Physical Exam: VITAL SIGNS - Vital signs and nursing notes were reviewed. GENERAL - 68-year-old male appearing his stated age who is in no acute distress. Communicates well with provider and answers questions appropriately. LUNGS - Chest wall evaluation demonstrates a normal chest wall A:P diameter. Auscultation reveals clear breath sounds bilaterally without wheezes, rales, or rhonchi appreciated. CARDIAC - RRR with S1/S2. No murmur, rubs, or gallops appreciated. PSYCH - A&Ox3 and cooperates fully with examiner. Pt is very pleasant and interacts well with examiner. Results & Data Results & Data Vital Signs (Past 12 Hours) Vital Signs Temp Pulse Resp BP Pulse Ox O2 Del Method 09/17/23 07:29 104 H 18 96 Room Air 09/17/23 06:56 36.5 C 106 H 20 155/101 H 94 Room Air 09/17/23 03:55 36.8 C 105 H 16 160/89 H 91 Room Air 09/16/23 23:45 109 H 18 94 Room Air 09/16/23 23:00 36.7 C 103 H 16 152/103 H 91 Room Air Laboratory Results 09/17/23 04:00 09/17/23 04:00 PG Care Time/CCT Total # of Minutes Spent Total Time Spent with Patient: Total time spent is greater than 50% in coordination of care (as documented) at patient's floor/unit and/or counseling patient: Coding Level of Care Code 76081 SUB INP/OBS CARE 3/50MIN Diagnoses Aspiration pneumonia of both lungs, unspecified aspiration pneumonia type, unspecified part of lung J69.0 Aspiration pneumonia type: unspecified Lung location: unspecified part of lung Pneumonia type: aspiration pneumonia Acute hypoxemic respiratory failure J96.01 Long-term current use of steroids Allergic bronchopulmonary aspergillosis 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
[2023-09-17] MEDS ORDERED: LEVALBUTEROL 1.25 MG/3 ML NEB NEB PRN (10:28)
--- NOTE | 2023-09-17 12:13 | Cardiology Progress Note ---
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 after midnight I spent a total of 40 minutes on the date of service in preparation, delivery, and documentation of the care provided to this patient, excluding any time spent in the performance of separately billed services. Admission and Anticipated Discharge Date Admission Date: September 12, 2023 Subjective Patient was seen and personally examined. Referred for consideration of transesophageal echocardiogram due to MSSA bacteremia Respiratory status much improved since hospitalization Currently afebrile. No dental pieces or partial plates No difficulty with swallowing no history of esophageal or GI pathology Physical Exam Constitutional: no acute distress Eyes: + anicteric sclerae Neck: trachea midline Respiratory: normal respiratory effort; no respiratory distress, no labored breathing and no retractions Cardiovascular: Rate/Rhythm: regular rate and regular rhythm Heart Sounds: normal S1, normal S2 and + murmur Vessels: radial pulses present; no JVD, no carotid bruit, + posterior tibial pulses abnormal (left lower extremity distal pulses are not palpable) and + dorsalis pedis pulses abnormal (Left lower extremity disc pulses are not palpable) Extremities: no pedal edema and no edema Gastrointestinal (Abdomen): Inspection/Auscultation: normal bowel sounds; abdomen not distended Percussion/Palpation: abdomen soft; abdomen nontender, no guarding and abdomen not rigid Skin: no rashes, warm and dry Neurologic: CN's II-XI intact bilaterally and moves all extremities; no focal motor deficits Results & Data Vital Signs (Past 12 Hours) Vital Signs Temp Pulse Resp BP Pulse Ox O2 Del Method 09/17/23 07:29 104 H 18 96 Room Air 09/17/23 06:56 36.5 C 106 H 20 155/101 H 94 Room Air 09/17/23 03:55 36.8 C 105 H 16 160/89 H 91 Room Air (4) Bilateral pneumonia Pneumonia type: aspiration pneumonia Aspiration pneumonia type: unspecified Lung location: unspecified part of lung Qualified Code(s): J69.0 - Pneumonitis due to inhalation of food and vomit (5) Aortic stenosis Cardiac valve disease etiology: nonrheumatic Qualified Code(s): I35.0 - Nonrheumatic aortic (valve) stenosis
[2023-09-17] MEDS: ceFAZolin 2000MG 2,000 MG/15 ML SYR IV SCH (13:25)
--- NOTE | 2023-09-17 13:56 | Anesthesiology Consultation ---
Date of Service September 17, 2023 Assessment & Plan (1) Encounter for pre-operative examination: Chart Review Chart Review: Acceptable Risk for Surgery History Surgery Operation Date: 09/18/23 07:30 Proposed Procedures p Transesophageal Echo w/Anesthesia - Artis Duong MD Height/Weight Height: 5 ft 11 in Weight: 99.6 kg Allergies Allergy/AdvReac Type Severity Reaction Status Date / Time amoxicillin AdvReac Intermediate made me Verified 09/12/23 08:49 feel weird Medications Home Medications Medication Instructions Recorded Confirmed Last Taken albuterol sulfate 2.5 mg/3 mL 1 vial continuous nebulization Q4 08/13/18 09/12/23 01/18/21 05:00 (0.083 %) solution for nebulization PRN Shortness Of Breath Or Wheezing albuterol sulfate 90 mcg/actuation 2 puff inhalation Q4 PRN Shortness 08/13/18 09/12/23 01/18/21 03:00 aerosol inhaler Of Breath Or Wheezing fluticasone 500 mcg-salmeterol 50 1 puff inhalation BID 08/13/18 09/12/23 09/15/21 mcg/dose blistr powdr for inhalation meloxicam 7.5 mg tablet 7.5 mg PO DAILY 08/13/18 09/12/23 09/15/21 metaxalone 800 mg tablet 800 mg PO TID PRN Muscle Spasm 08/13/18 09/12/23 04/22/21 08:00 metoprolol succinate 25 mg 25 mg PO UD 08/13/18 09/12/23 09/15/21 tablet,extended release 24 hr mometasone 50 mcg/actuation nasal 2 spray intranasal DAILY 08/13/18 09/12/23 09/15/21 spray montelukast 10 mg tablet 10 mg PO QAM 08/13/18 09/12/23 09/15/21 azelastine 137 mcg (0.1 %) nasal 2 spray intranasal BID 05/10/20 09/12/23 09/15/21 spray aerosol prednisone 10 mg tablet 10 - 30 mg PO QAM 05/10/20 09/12/23 09/15/21 pseudoephedrine-guaifenesin ER 60 1 tab PO BID PRN Congestion 05/10/20 09/12/23 01/18/21 05:00 mg-600 mg tablet,extend release 12hr (Mucinex D) aspirin-caffeine 400 mg-32 mg See Rx Instructions .Route .COMPLEX 09/15/21 09/12/23 Unknown tablet (Anacin) cyclobenzaprine 5 mg tablet 5 mg PO BID PRN Muscle Spasm 09/15/21 09/12/23 Unknown duloxetine 60 mg capsule,delayed 60 mg PO DAILY 09/15/21 09/12/23 Unknown release gabapentin 100 mg capsule 300 mg PO HS 09/15/21 09/12/23 09/14/21 hydrochlorothiazide 25 mg tablet 25 mg PO QAM 09/15/21 09/12/23 09/15/21 mepolizumab 100 mg subcutaneous 0 mg subcut UD 09/15/21 09/12/23 Unknown solution (Nucala) multivitamin 1 tab PO DAILY 09/15/21 09/12/23 09/15/21 tiotropium bromide 2.5 2 puff inhalation QAM 09/15/21 09/12/23 09/15/21 mcg/actuation mist for inhalation (Spiriva Respimat) atorvastatin 10 mg tablet 10 mg PO QAM 09/12/23 09/12/23 Unknown cholecalciferol (vitamin D3) 25 25 mcg PO QAM 09/12/23 09/12/23 Unknown mcg (1,000 unit) capsule (Vitamin D3) hydralazine 25 mg tablet 25 mg PO Q4H PRN BP over 160/100 09/12/23 09/12/23 Unknown hydrochlorothiazide 12.5 mg capsule See Rx Instructions .Route .COMPLEX 09/12/23 09/12/23 Unknown losartan 25 mg tablet 50 mg PO QAM 09/12/23 09/12/23 Unknown naproxen 500 mg tablet 500 mg PO BID pain 09/12/23 09/12/23 Unknown omega-3 fatty acids-vitamin E 1 cap PO QAM 09/12/23 09/12/23 Unknown 1,000 mg capsule riboflavin (vitamin B2) 100 mg 400 mg PO QAM 09/12/23 09/12/23 Unknown tablet (Vitamin B-2) Active Medications Generic Name Dose Route Start Last Admin Trade Name Freq PRN Reason Stop Dose Admin Acetaminophen 500 mg 09/12/23 02:47 09/16/23 08:26 Acetaminophen 500 Mg Tab PO 10/12/23 02:46 500 mg Q6H PRN Administration fever/pain Atorvastatin Calcium 10 mg 09/13/23 09:00 09/17/23 08:16 Atorvastatin 10 Mg Tab PO 10/13/23 08:59 10 mg QAM RASHIDA Administration Azelastine HCl 1 sprays 09/12/23 09:00 09/17/23 08:16 Azelastine Hcl 0.1% Nasal 200 Sprays/27,400 Mcg Btl NA 10/12/23 08:59 1 sprays DAILY RASHIDA Administration Cyclobenzaprine HCl 5 mg 09/12/23 08:12 09/16/23 07:28 Cyclobenzaprine Hcl 5 Mg Tab PO 10/12/23 08:11 5 mg BID PRN Administration Muscle Spasm Doxycycline Hyclate 100 mg 09/14/23 21:00 09/17/23 08:16 Doxycycline Hyclate 100 Mg Cap PO 09/21/23 20:59 100 mg BID RASHIDA Administration Duloxetine HCl 60 mg 09/12/23 09:00 09/17/23 08:17 Duloxetine Hcl 60 Mg Cap PO 10/12/23 08:59 60 mg DAILY RASHIDA Administration Enoxaparin Sodium 40 mg 09/12/23 09:00 09/13/23 08:38 Enoxaparin Inj 40 Mg/0.4 Ml Syr SQ 10/12/23 08:59 40 mg QAM RASHIDA Administration Fluticasone/Vilanterol 1 puffs 09/12/23 09:00 09/17/23 08:17 Fluticasone/Vilanterol 200/25mcg 14 Puffs/Inhaler INH 10/12/23 08:59 1 puffs DAILY RASHIDA Administration Furosemide 40 mg 09/17/23 09:00 09/17/23 08:17 Furosemide 40 Mg/4 Ml Vial IV 10/17/23 08:59 40 mg BID RASHIDA Administration Gabapentin 300 mg 09/12/23 21:00 09/16/23 20:36 Gabapentin 300 Mg Cap PO 10/12/23 20:59 300 mg HS RASHIDA Administration Promethazine HCl 12.5 mg/ 50.5 mls @ 202 mls/hr 09/12/23 03:38 09/14/23 01:00 Sodium Chloride IV 10/12/23 03:37 Infused Q6H PRN Infusion Nausea And Vomiting Metronidazole 500 mg in 100 mls @ 100 mls/hr 09/14/23 09:00 09/17/23 09:19 Flagyl IV 09/21/23 08:59 Infused Q8H RASHIDA Infusion Protocol Cefazolin Sodium 2,000 mg in 15 mls @ 3.75 mls/min 09/17/23 12:00 09/17/23 13:25 Ancef 2000mg IV 10/01/23 11:59 3.75 mls/min Q8H RASHIDA Administration Lorazepam 0.5 mg 09/12/23 03:38 09/12/23 05:36 Lorazepam 0.5 Mg Tab PO 10/12/23 03:37 0.5 mg TID PRN Administration Anxiety Losartan Potassium 50 mg 09/14/23 09:00 09/17/23 08:17 Losartan Potassium 50 Mg Tab PO 10/14/23 08:59 50 mg QAM RASHIDA Administration Meloxicam 7.5 mg 09/12/23 09:00 09/13/23 08:37 Meloxicam 7.5 Mg Tab PO 10/12/23 08:59 7.5 mg QAM RASHIDA Administration Metoprolol Succinate 25 mg 09/12/23 09:30 09/17/23 08:17 Metoprolol Succ 25mg Ext Rel Tab PO 10/12/23 09:29 25 mg QAM RASHIDA Administration Mometasone Furoate 2 sprays 09/15/23 09:00 09/17/23 08:18 Mometasone Furoate 17 Gm Inhaler NA 10/15/23 08:59 2 sprays DAILY RASHIDA Administration Montelukast Sodium 10 mg 09/12/23 09:00 09/17/23 08:17 Montelukast Sodium 10 Mg Tablet PO 10/12/23 08:59 10 mg QAM RASHIDA Administration Morphine Sulfate 4 mg 09/12/23 03:38 09/12/23 17:18 Morphine Sulfate 4 Mg/Ml 1 Ml Carp\Vial IV 09/26/23 03:37 4 mg Q4H PRN Administration Pain Multivitamins 1 tab 09/12/23 09:00 09/17/23 08:17 Multivitamin Tab PO 10/12/23 08:59 1 tab DAILY RASHIDA Administration Oxycodone HCl 5 mg 09/14/23 04:28 09/17/23 03:34 Oxycodone Hcl Ir 5 Mg Tab (Immediate Release) PO 09/26/23 02:46 5 mg QID PRN Administration Pain Prednisone 10 mg 09/15/23 09:00 09/17/23 08:17 Prednisone 10 Mg Tablet PO 10/15/23 08:59 10 mg QAM RASHIDA Administration Umeclidinium [place] 1 puffs 09/12/23 09:00 09/17/23 08:17 Umeclidinium [place] 62.5mcg/Blister 7 Puffs/Inhaler INH 10/12/23 08:59 1 puffs DAILY RASHIDA Administration Past Medical History Medical History (Updated 09/17/23 @ 13:56 by Francis Goncalves MD) MSSA bacteremia Aortic stenosis Ambulates with cane Chronic sinusitis Long-term current use of steroids Allergic bronchopulmonary aspergillosis JOANN (obstructive sleep apnea) no device Asthma inhaler daily and prn Benign essential HTN HTN (hypertension) Hernia Past Family History Family History Grandfather (Paternal) Family history of diabetes mellitus Grandfather (Maternal) Family history of diabetes mellitus Family history of esophageal cancer Other Asthma No family history of adverse response to anesthesia Past Surgical History Surgical History History of colonoscopy History of tooth extraction History of tonsillectomy Status post uvulopalatopharyngoplasty History of ear surgery mastoid sx S/P hernia surgery Social History Smoking Status: Former smoker Do You Dip or Chew Tobacco: No (quit 10 years ago) Hx Alcohol Use: Yes Alcohol type: beer alcohol intake frequency: 0-2 drinks per day Hx Substance Use: No substance use type: does not use Physical Exam Vital Signs Last Vital Signs Temp 36.4 C L 09/17/23 11:45 Pulse 107 H 09/17/23 11:45 Resp 19 09/17/23 11:45 BP 120/77 09/17/23 11:45 Pulse Ox 94 09/17/23 11:45 O2 Del Method Room Air 09/17/23 11:45 O2 Flow Rate 2 09/16/23 07:10 Testing Laboratory Results 09/17/23 04:00 09/17/23 04:00 PT 10.9 Seconds (9.0-12.0) 09/11/23 22:15 INR 1.0 (0.9-1.1) 09/11/23 22:15 APTT 25 Seconds (21-31) 09/11/23 22:15 Urine Color Yellow 09/11/23 22:52 Urine Appearance Clear (Clear) 09/11/23 22:52 Urine pH 5.5 (4.5-7.5) 09/11/23 22:52 Ur Specific [place] 1.029 (1.000-1.030) 09/11/23 22:52 Urine Protein 1+ (Negative) H 09/11/23 22:52 Urine Glucose (UA) Negative (Negative) 09/11/23 22:52 Urine Ketones Negative (Negative) 09/11/23 22:52 Urine Nitrite Negative (Negative) 09/11/23 22:52 Ur Leukocyte Esterase Negative (Negative) 09/11/23 22:52 Urine WBC (Auto) 1-5 /hpf (0-5) 09/11/23 22:52 Urine RBC (Auto) 0-4 /hpf (0-4) 09/11/23 22:52 U Hyaline Cast (Auto) 5-10 /lpf (0-5) H 09/11/23 22:52 U Epithel Cells (Auto) 20-30 /lpf (0-5) H 09/11/23 22:52 Urine Bacteria (Auto) Negative (Negative) 09/11/23 22:52 09/16/23 09:50 Gram Stain - Final Wrist,Left Aerobic and Anaerobic Culture - Preliminary No growth to date. 09/13/23 07:15 Aerobic Blood Culture - Preliminary Blood Gram positive cocci clusters Anaerobic Blood Culture - Preliminary No growth in Anaerobic bottle after 48 hours. 09/13/23 07:22 Aerobic Blood Culture - Preliminary Blood Staphylococcus aureus Anaerobic Blood Culture - Preliminary No growth in Anaerobic bottle after 48 hours. 09/14/23 Unknown Gram Stain - Final Sputum, Expectorated Sputum Culture - Final Jessica albicans/dubliniensis 09/14/23 Unknown Urine Culture - Final Urine,Indwelling Cath No growth - less than 1,000 colonies/mL. 09/12/23 04:04 Aerobic Blood Culture - Final Blood Staphylococcus aureus Anaerobic Blood Culture - Final Staphylococcus aureus 09/12/23 03:52 Aerobic Blood Culture - Final Blood Staphylococcus aureus Anaerobic Blood Culture - Final Staphylococcus aureus Echocardiogram Date: 09/13/23 EF: 60-65% LV Function: normal Valvular Disease: + (moderate)
--- NOTE | 2023-09-17 16:30 | Hospitalist Progress Note ---
Date of Service September 17, 2023 Assessment & Plan (1) Severe sepsis: Plan: 68 year old man with history significant for mild , hypertension, bronchial asthma/allergic eosinophilia/allergic bronchopulmonary aspergillosis with elevated IgE on chronic steroid Rx, JOANN status post surgery (CPAP intolerance), CIDP outpatient IVIG infusions, past tobacco abuse who presented with worsening chronic hand pain/back pain, weakness, shortness of breath. Severe sepsis with SIRS plus lactic acidosis Immunocompromised patient MSSA bacteremia Bilateral pneumonia Cannot rule out septic arthritis Suspected infective endocarditis Acute respiratory failure with hypoxia --Blood cultures from 09/12/2023 growing MSSA --Repeat blood cultures from 09/13/2023 negative to date --ECHO: No evidence of mass or vegetation. EF 60 to 65%. Borderline concentric LVH. Grade 1 diastolic function. Attic valve is moderately calcified and possibly bicuspid. Moderate valvular aortic stenosis. Moderate mitral annular calcification. Mild mitral and tricuspid regurgitation. --CT chest:Bilateral pulmonary infiltrates, most pronounced in the right upper lobe. This likely represent bilateral pneumonia. --Urine for Legionella pending ---Serological test for histoplasma, fungitell pending --Procalcitonin 11.9 --Urine culture no growth --Continue on cefepime, Flagyl, also on doxycycline>> cefazolin, Flagyl, Doxy Appreciate infectious disease and pulmonary input Needs transesophageal echo, arthrocentesis of left wrist to rule out IE and septic arthritis Aspiration precautions No plan for bronchoscopy currently Appreciate cardiology input Weaned off of supplemental oxygen Clinically improving Continue IV diuresis per cardiology Plan for ANASTASIIA tomorrow Acute metabolic encephalopathy Likely secondary to above Mental status back to baseline Monitor B/L Wrist osteoarthritis S/P left wrist arthrocentesis on 09/16/23 Follow-up synovial fluid Cx Appreciate orthopedics input Chronic Lower back Pain Likely due to spinal stenosis --Lumbar MR noted multilevel degenerative changes with severe canal stenosis and severe bilateral neuroforaminal stenosis --Hand CT Right noted severe narrowing of radiocarpal joint and intercarpal joints with subchondral erosions, partial collapse of wrist joint. Less likely septic joint --Hand CT left noted severe narrowing with mod sclerosis, subchondral cyst in radiocarpal and Intercarpal joints. Differential considerations include septic joint vs gout vs erosive OA -- Appreciate Orthopedics Input --Cautious use of pain medications H/O Bronchial asthma/allergic eosinophilia/allergic bronchopulmonary asp ergillosis with elevated IgE on chronic steroid Rx Continue prednisone, montelukast, Trelegy Continue Nebs CIDP receiving outpatient IVIG infusions Outpatient follow up Hypertension Continue Losartan Resume HCTZ as able Monitor JOANN S/P surgery H/O CPAP intolerance New onset anemia Hemoptysis likely due to Pneumonia FOBT done at the ER was reported to be negative Also dilutional contributing Monitor CBC Past tobacco abuse per records DVT Px: Lovenox SQ--held due to hemoptysis SCDs for now Code Status Full code Admission and Anticipated Discharge Date Admission Date: September 12, 2023 Subjective Patient is seen and examined at bedside Less cough today Breathing slowly improving Saturating well on room air Admits to have some dyspnea on exertion Denies any chest pain, dizziness, nausea, vomiting, abdominal pain Plan for ANASTASIIA tmw Review of Systems Review of Systems: All systems reviewed & are unremarkable except as noted in Subjective Physical Exam Physical Exam: Physical Exam: Vitals signs as noted above General Appearance:Moderately built and nourished, no apparent distress Head: normocephalic, Atraumatic Eyes: normal inspection, EOMI Neck: supple, Trachea midline Respiratory/Chest:Normal breath sounds, scattered wheeze, No accessory muscle use Cardiovascular: S1, S2, + murmur Abdomen/GI:Soft, Non tender, Bowel sounds present Extremities/Musculoskeletal:normal inspection, 1+ edema Neurologic/Psych:AAOX3, grossly no focal neurological deficits Skin: normal color, warm Results & Data Results & Data Vital Signs (Past 12 Hours) Vital Signs Temp Pulse Resp BP Pulse Ox O2 Del Method 09/17/23 15:56 36.6 C 106 H 20 123/80 93 Room Air 09/17/23 11:45 36.4 C L 107 H 19 120/77 94 Room Air 09/17/23 07:29 104 H 18 96 Room Air 09/17/23 06:56 36.5 C 106 H 20 155/101 H 94 Room Air Laboratory Results Short CBC 09/17/23 Range/Units 04:00 WBC 18.36 H (4.8-10.8) K/ul Hgb 11.5 L (14.0-18.0) g/dl Hct 35.0 L (42.0-52.0) % Plt Count 317 (130-400) K/uL BMP 09/17/23 04:00 Sodium 138 Potassium 3.5 Chloride 104 Carbon Dioxide 24 BUN 43 H Creatinine 0.79 Glucose 100 H Calcium 9.4
[2023-09-18 05:25] LABS: Hematocrit (blood only) 36.9 % (42.0-52.0); Hemoglobin 12.3 g/dl (14.0-18.0); Mean Corpuscular Hemoglobin 31.1 pg (25.0-34.0); Mean Corpuscular Hgb Conc 33.3 g/dL (32.0-36.0); Mean Corpuscular Volume 93.2 fL (80.0-100.0); Mean Platelet Volume 10.2 fL (9.4-12.4); Platelet Count 430 K/uL (130-400); RDW Coefficient of Variation 15.1 % (11.5-14.5); RDW Standard Deviation 51.9 fL (36.4-46.3); Red Blood Count 3.96 M/uL (4.70-6.10)
[2023-09-18 05:30] LABS: BUN Creatinine Ratio 45.8 (10-20); Calcium 9.6 mg/dl (8.6-10.3); Creatinine Clr Calc Pharmacy 87.3 ml/min; Est GFR (African American) 93.1 ml/min; Est GFR (Non-African American) 80.3 ml/min; Potassium 3.3 mmol/L (3.5-5.1)
--- NOTE | 2023-09-18 07:23 | XRay Report ---
XR chest 1V portable CLINICAL HISTORY: f/u COMPARISON STUDY: Chest CT September 14, 2023. Chest radiograph September 17, 2023. FINDINGS: Osteoarthritis of the glenohumeral joints and old right-sided rib fractures are incidentall y noted. Right upper lobe airspace opacity has significantly improved. Minimal right basilar opacity is present. Left lung is clear. No evidence for pulmonary edema. Cardiomediastinal silhouette is stab le. No pneumothorax or pleural effusion. IMPRESSION: Significant improvement in right upper lobe airspace opacity. This favors improving pneu monia. ACT 112: Negative or not required by law. Electronically signed by: Zaheer Alfaro M.D. 09/18/2023 7:22 AM
[2023-09-18] MEDS: BENZOCAINE/TETRACAIN/BUTAM 50 APPLN/5 GM CAN EXT ONE (07:44)
--- NOTE | 2023-09-18 08:41 | Cardiology Progress Note ---
Date of Service September 18, 2023 Assessment & Plan (1) MSSA bacteremia: (2) Aortic stenosis: Plan No evidence of endocarditis by transesophageal echocardiogram. Calcification aortic valve does limit sensitivity Would recommend repeat blood cultures after antibiotic course complete Repeat transthoracic echocardiogram 1 month No further cardiac recommendations contact with question Admission and Anticipated Discharge Date Admission Date: September 12, 2023 Subjective Patient was seen and examined both pre and post transesophageal echocardiogram No difficulties overnight Procedure uneventful with good tolerance. Preliminary review and formal review reveals no vegetation to suggest endocarditis with limitations of calcified aortic valve Review of Systems Review of Systems: All systems reviewed & are unremarkable except as noted in Subjective Physical Exam Constitutional: WD/WN, vitals as above no acute distress Eyes: PERRL, conjunctivae normal, anicteric sclerae ENMT: external ear and nose normal, oropharynx normal Neck: trachea midline, no thyromegaly Respiratory: Auscultation: + diminished lung sounds; no crackles, no rales and no wheezes Cardiovascular: Rate/Rhythm: regular rate and regular rhythm Vessels: no JVD Extremities: + edema Gastrointestinal (Abdomen): normal bowel sounds, soft, nontender, no hepatosplenomegaly Musculoskeletal: no cyanosis or clubbing, extremities motor strength 5/5 Results & Data Vital Signs (Past 12 Hours) Vital Signs Temp Pulse Pulse Resp BP BP Pulse Ox 09/18/23 08:05 102 H 16 120/86 100 09/18/23 07:14 109 H 18 152/116 H 94 09/18/23 03:30 36.8 C 113 H 18 150/104 H 94 09/17/23 23:00 36.9 C 96 H 18 147/85 H 92 O2 Del Method 09/18/23 08:05 Oxymask 09/18/23 07:14 Room Air 09/18/23 03:30 Room Air 09/17/23 23:00 Room Air Laboratory Results Laboratory Results - last 24 hr 09/14/23 09/18/23 15:03 04:53 WBC 21.40 H RBC 3.96 L Hgb 12.3 L Hct 36.9 L MCV 93.2 MCH 31.1 MCHC 33.3 RDW Std Deviation 51.9 H RDW Coeff of Karishma 15.1 H Plt Count 430 H MPV 10.2 Sodium 136 Potassium 3.3 L Chloride 101 Carbon Dioxide 22 Anion Gap 13 H BUN 44 H Creatinine 0.96 Est Cr Clr Drug Dosing 87.3 Est GFR ( Amer) 93.1 Est GFR (Non-Af Amer) 80.3 BUN/Creatinine Ratio 45.8 H Glucose 105 H Calcium 9.6 Urine Legionella Ag SEE NOTE (2) Aortic stenosis Cardiac valve disease etiology: nonrheumatic Qualified Code(s): I35.0 - Nonrheumatic aortic (valve) stenosis
[2023-09-18] MEDS: PROPOFOL IV EMULSION 10 MG/ML 20 ML VIAL IV ONE (09:07)
[2023-09-18] MEDS: LIDOCAINE 2% 2 ML VIAL/AMP(20MG/ML) INFIL ONE (09:07)
[2023-09-18] MEDS: POTASSIUM CHLORIDE CRTAB 20 MEQ TABCR PO ONE (09:10)
--- NOTE | 2023-09-18 11:38 | Pulmonology Progress Note ---
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 Continues to improve from pulmonary perspective and is currently saturating well on room air. Recommendations: 1. Diffuse pulmonary infiltrates: Initial differential remains broad in a patient immunocompromised with chronic immunosuppression from prednisone in the setting of ABPA therapies. Thankfully, his infiltrative processes have significantly improved on chest x-ray. He is now requiring no oxygen. Continue to treat bacteremia and resources. Continue with diuresis. Follow-up outpatient CT w/o contrast to be obtained in the next 6-8 weeks in f/u to assess for resolution of infiltrative findings appreciated on CT obtained during admission. 2. Legionella, Fungitell, and galactomannan still pending at this time, however much less likely with the rapid symptom/radiologic improvement noticed. 4. History of ABPA/asthma: No eosinophilia noted on differential. May be masked by concomitant use of steroids but seems less likely to be eosinophilic pneumonia. Continue prednisone at 10 mg daily which is his baseline dose. Unclear how the diagnosis of ABPA was made as it was no documentation. Continue home inhaler regimen. 5. Hypoxemia: Significantly improved/resolved 6. Evaluation of the patient's sinus complaints per primary admitting service 7. Continue diuresis. Additional diuretics per primary service and cardiology. Thank you for allowing us to participate in the care of this patient. Pulmonary medicine will sign off at this time. Admission and Anticipated Discharge Date Admission Date: September 12, 2023 Supervising Physician Co-Signing Physician Notes I saw and evaluated the patient with Neo Storm PA-C, and agree with findings and plan as documented in the note. Patient seen and examined at bedside. No acute distress, no adverse events overnight He is post ANASTASIIA. He said he is feeling much better when it comes to his breathing Denies any chest pain, no chest tightness. Coughing up clear phlegm. No hemoptysis No abdominal pain. Fair appetite Constitutional: No acute distress HEENT: EOMI, PERRLA Respiratory system: Good air entry bilaterally, no wheeze, no rhonchi, no crackles CVS: S1-S2 positive, no murmurs or gallops Abdomen: Soft, nontender, nondistended, positive bowel sounds x4, obese Extremities: +2 pulses bilaterally radialis/ dorsalis pedis, no cyanosis, no edema Neuro: Awake alert oriented x3 Psych: Normal mood and affect G/U: Positive Collins Plan: In/out: -621, urine output 2.1 L, -1.6 L since coming to the hospital Chest x-ray shows improvement in the alveolar opacities Continue with diuretics Although no eosinophilia on the periphery, eosinophilic pneumonia although the possibility could be there given the patient is on chronic steroids which can mask the eosinophilia. But given the significant improvement in the infiltrate without any significant intervention I highly doubt that being a possibility Patient is taking 10 mg prednisone for underlying ABPA. Will defer changes to the dose to outpatient pulmonary. No further recommendation from pulmonary perspective, will sign off Please call directly with any questions Please note the above document was generated using voice recognition software. It may contain grammatical, syntax or spelling errors.Any formal questions or concerns about the content, text or information contained within the body of th is dictation should be directly addressed to the provider for clarification. Subjective Patient was seen and evaluated bedside after undergoing transesophageal echocardiogram. Patient reports symptoms are well under control and offers no complaints of respiratory issues at this time. Review of Systems Review of Systems: Please refer to hospitalist's notes. No additions or deletions Physical Exam Physical Exam: VITAL SIGNS - Vital signs and nursing notes were reviewed. GENERAL - 68-year-old male appearing his stated age who is in no acute distress. Communicates well with provider and answers questions appropriately. LUNGS - Chest wall evaluation demonstrates a normal chest wall A:P diameter. Auscultation reveals clear breath sounds bilaterally without wheezes, rales, or rhonchi appreciated. CARDIAC - RRR with S1/S2. No murmur, rubs, or gallops appreciated. PSYCH - A&Ox3 and cooperates fully with examiner. Pt is very pleasant and interacts well with examiner. Results & Data Results & Data Vital Signs (Past 12 Hours) Vital Signs Temp Pulse Pulse Resp BP BP Pulse Ox 09/18/23 10:59 36.5 C 106 H 19 119/82 94 09/18/23 08:30 36.6 C 92 H 19 145/78 H 95 09/18/23 08:20 103 H 16 148/83 H 93 09/18/23 08:05 102 H 16 120/86 100 09/18/23 07:14 109 H 18 152/116 H 94 09/18/23 03:30 36.8 C 113 H 18 150/104 H 94 O2 Del Method 09/18/23 10:59 Room Air 09/18/23 08:30 Room Air 09/18/23 08:20 Room Air 09/18/23 08:05 Oxymask 09/18/23 07:14 Room Air 09/18/23 03:30 Room Air PG Care Time/CCT Total # of Minutes Spent Total Time Spent with Patient: Total time spent is greater than 50% in coordination of care (as documented) at patient's floor/unit and/or counseling patient: Coding Level of Care Code 31532 SUB INP/OBS CARE 2/35MIN Diagnoses Aspiration pneumonia of both lungs, unspecified aspiration pneumonia type, unspecified part of lung J69.0 Aspiration pneumonia type: unspecified Lung location: unspecified part of lung Pneumonia type: aspiration pneumonia Acute hypoxemic respiratory failure J96.01 Long-term current use of steroids Allergic bronchopulmonary aspergillosis B44.81
--- NOTE | 2023-09-18 12:49 | Anesthesiology Progress Note ---
Date of Service September 18, 2023 Anesthesia Post Procedure Vital Signs Vital Signs: Temp Pulse Pulse Resp BP BP BP 09/18/23 10:59 36.5 C 106 H 19 119/82 09/18/23 08:30 36.6 C 92 H 19 145/78 H 09/18/23 08:20 103 H 16 148/83 H 09/18/23 08:05 102 H 16 120/86 09/18/23 07:14 109 H 18 152/116 H 09/18/23 03:30 36.8 C 113 H 18 150/104 H 09/17/23 23:00 36.9 C 96 H 18 147/85 H 09/17/23 20:08 09/17/23 19:53 36.7 C 110 H 20 133/82 09/17/23 15:56 36.6 C 106 H 20 123/80 Pulse Ox O2 Del Method 09/18/23 10:59 94 Room Air 09/18/23 08:30 95 Room Air 09/18/23 08:20 93 Room Air 09/18/23 08:05 100 Oxymask 09/18/23 07:14 94 Room Air 09/18/23 03:30 94 Room Air 09/17/23 23:00 92 Room Air 09/17/23 20:08 Room Air 09/17/23 19:53 97 Room Air 09/17/23 15:56 93 Room Air Pain Intensity Generalized: Pain Intensity: 0 Lower Back: Pain Intensity: 5 Transfer of Care Handoff Completed per policy Notes Mental Status: alert / awake / arousable and participated in evaluation Nausea / Vomiting: adequately controlled Pain: adequately controlled Airway Patency, RR, SpO2: stable & adequate BP & HR: stable & adequate Hydration State: stable & adequate Anesthetic Complications: no major complications apparent and Pt Satisfied with anesthetic care
--- NOTE | 2023-09-18 16:14 | Hospitalist Progress Note ---
Date of Service September 18, 2023 Assessment & Plan (1) Severe sepsis: Plan: 68 year old man with history significant for mild , hypertension, bronchial asthma/allergic eosinophilia/allergic bronchopulmonary aspergillosis with elevated IgE on chronic steroid Rx, JOANN status post surgery (CPAP intolerance), CIDP outpatient IVIG infusions, past tobacco abuse who presented with worsening chronic hand pain/back pain, weakness, shortness of breath. Severe sepsis with SIRS plus lactic acidosis Immunocompromised patient MSSA bacteremia Bilateral pneumonia Cannot rule out septic arthritis Suspected infective endocarditis Acute respiratory failure with hypoxia --Blood cultures from 09/12/2023 growing MSSA --Repeat blood cultures from 09/13/2023 MSSA --Repeat blood cultures from 09/18/23 pending --ECHO: No evidence of mass or vegetation. EF 60 to 65%. Borderline concentric LVH. Grade 1 diastolic function. Attic valve is moderately calcified and possibly bicuspid. Moderate valvular aortic stenosis. Moderate mitral annular calcification. Mild mitral and tricuspid regurgitation. --CT chest:Bilateral pulmonary infiltrates, most pronounced in the right upper lobe. This likely represent bilateral pneumonia. --Urine for Legionella pending ---Serological test for histoplasma, fungitell pending --Procalcitonin 11.9 --Urine culture no growth --ANASTASIIA on 09/18/23:Preliminary review reveals no vegetation to suggest endocarditis with limitations of calcified aortic valve. --Continue on cefepime, Flagyl, also on doxycycline>> cefazolin, Flagyl, Doxy Appreciate infectious disease, cardiology and pulmonary input Aspiration precautions Decrease IV Lasix to 40 mg daily MRI left wrist pending Persistent leukocytosis. Will obtain peripheral smear Will likely need repeat echocardiogram in 1 month Acute metabolic encephalopathy Likely secondary to above Mental status back to baseline Monitor B/L Wrist osteoarthritis S/P left wrist arthrocentesis on 09/16/23 synovial fluid Cx growing staph species Appreciate orthopedics input Continue antibiotics as above MRI wrist pending Hypokalemia Replete electrolytes as needed Monitor Chronic Lower back Pain Likely due to spinal stenosis --Lumbar MR noted multilevel degenerative changes with severe canal stenosis and severe bilateral neuroforaminal stenosis --Hand CT Right noted severe narrowing of radiocarpal joint and intercarpal joints with subchondral erosions, partial collapse of wrist joint. Less likely septic joint --Hand CT left noted severe narrowing with mod sclerosis, subchondral cyst in radiocarpal and Intercarpal joints. Differential considerations include septic joint vs gout vs erosive OA -- Appreciate Orthopedics Input --Cautious use of pain medications H/O Bronchial asthma/allergic eosinophilia/allergic bronchopulmonary aspergillosis with elevated IgE on chronic steroid Rx Continue prednisone, montelukast, Trelegy Continue Nebs CIDP receiving outpatient IVIG infusions Outpatient follow up Hypertension Continue Losartan Resume HCTZ as able Monitor JOANN S/P surgery H/O CPAP intolerance New onset anemia Hemoptysis likely due to Pneumonia FOBT done at the ER was reported to be negative Also dilutional contributing Monitor CBC Past tobacco abuse per records DVT Px: Lovenox SQ--held due to hemoptysis SCDs for now Code Status Full code Admission and Anticipated Discharge Date Admission Date: September 12, 2023 Subjective Patient is seen and examined at bedside Patient had ANASTASIIA earlier today Reports chronic back pain and some L wrist Pain Discussed with orthopedics, cardiology and pulmonology attending Sitting in chair during my encounter Offers no other complaints Denies any chest pain, dizziness, nausea, vomiting, abdominal pain CXR today showed improvement in right upper lobe airspace opacity Review of Systems Review of Systems: All systems reviewed & are unremarkable except as noted in Subjective Physical Exam Physical Exam: Physical Exam: Vitals signs as noted above General Appearance:Moderately built and nourished, no apparent distress Head: normocephalic, Atraumatic Eyes: normal inspection, EOMI Neck: supple, Trachea midline Respiratory/Chest:Normal breath sounds, CTA, No accessory muscle use Cardiovascular: S1, S2, + murmur Abdomen/GI:Soft, Non tender, Bowel sounds present Extremities/Musculoskeletal:normal inspection, 1+ edema Neurologic/Psych:AAOX3, grossly no focal neurological deficits Skin: normal color, warm Results & Data Results & Data Vital Signs (Past 12 Hours) Vital Signs Temp Pulse Pulse Resp BP BP Pulse Ox 09/18/23 10:59 36.5 C 106 H 19 119/82 94 09/18/23 08:30 36.6 C 92 H 19 145/78 H 95 09/18/23 08:20 103 H 16 148/83 H 93 09/18/23 08:05 102 H 16 120/86 100 09/18/23 07:14 109 H 18 152/116 H 94 O2 Del Method 09/18/23 10:59 Room Air 09/18/23 08:30 Room Air 09/18/23 08:20 Room Air 09/18/23 08:05 Oxymask 09/18/23 07:14 Room Air Laboratory Results Short CBC 09/18/23 Range/Units 04:53 WBC 21.40 H (4.8-10.8) K/ul Hgb 12.3 L (14.0-18.0) g/dl Hct 36.9 L (42.0-52.0) % Plt Count 430 H (130-400) K/uL BMP 09/18/23 04:53 Sodium 136 Potassium 3.3 L Chloride 101 Carbon Dioxide 22 BUN 44 H Creatinine 0.96 Glucose 105 H Calcium 9.6
[2023-09-18] MEDS: POTASSIUM CHLORIDE 10 MEQ TABCR PO SCH (20:33)
[2023-09-18] MEDS: GADOBUTROL 65ML VIAL IV ONE (23:26)
--- NOTE | 2023-09-19 01:24 | Magnetic Resonance Report ---
Exam(s): MRI LEFT WRIST W/WO Contrast IV Amt: 9.5cc gadavist administered EXAM: MR Left Upper Extremity Without and With Intravenous Contrast, Wrist CLINICAL HISTORY: Reason for exam: evaluate effusion, r/o osteomyelitis. TECHNIQUE: Multiplanar magnetic resonance images of the left wrist without and with intravenous contrast. CONTRAST: Patient received 9.5cc gadavist administered of IV contrast COMPARISON: No relevant prior studies available. FINDINGS: Severe osteomyelitis of the wrist consisting of: Old fracture of the scaphoid with the proximal fracture fragment nonvisualized. There is complete tear of the scapholunate ligament, with widening of the scapholunate interval measuring 1.6 cm. Proximal migration of the capitate. Findings are consistent with SLAC arthritis. Poor visualization of the lunate, which likely fragmented and chronically fractured. Extensive subchondral cystic changes of the carpus and distal radius. Ulnar styloid is not visually, likely fractured. Severe dorsal capsule synovitis. Complete tear of the TFCC. Moderate distal radial ulnar joint effusion, with moderate synovitis. Moderate edema throughout the carpal tunnel which preferentially is located deep to the FPL tendon. Normal size and signal intensity of the median nerve. Severe extensor tenosynovitis of the EPL. The remaining extensor compartments demonstrate varying degrees of synovitis. Circumferential subcutaneous edema. Moderate ECU tendinosis, which is chronically torn. 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 Old fracture of the scaphoid with the proximal fracture fragment nonvisualized. Complete tear of the TFCC. Severe extensor tenosynovitis of the EPL. See above. Electronically signed by: Adriel Rocha MD 09/19/23 01:23 AM
[2023-09-19 04:33] LABS: Hematocrit (blood only) 34.8 % (42.0-52.0); Hemoglobin 11.7 g/dl (14.0-18.0); Mean Corpuscular Hemoglobin 31.5 pg (25.0-34.0); Mean Corpuscular Hgb Conc 33.6 g/dL (32.0-36.0); Mean Corpuscular Volume 93.8 fL (80.0-100.0); Mean Platelet Volume 10.2 fL (9.4-12.4); Platelet Count 433 K/uL (130-400); RDW Coefficient of Variation 15.1 % (11.5-14.5); Red Blood Count 3.71 M/uL (4.70-6.10); White Blood Count 18.93 K/ul (4.8-10.8)
[2023-09-19 04:51] LABS: BUN Creatinine Ratio 52.1 (10-20); Calcium 9.7 mg/dl (8.6-10.3); Creatinine Clr Calc Pharmacy 87.3 ml/min; Est GFR (African American) 93.1 ml/min; Est GFR (Non-African American) 80.3 ml/min; Potassium 3.5 mmol/L (3.5-5.1)
[2023-09-19] MEDS: FUROSEMIDE 40 MG/4 ML VIAL IV SCH (08:43)
[2023-09-19] MEDS: FIRST - Mouthwash BLM 119 ML PO SCH (11:59)
--- NOTE | 2023-09-19 15:20 | Hospitalist Progress Note ---
Date of Service September 19, 2023 Assessment & Plan (1) Severe sepsis: Plan: 68 year old man with history significant for mild , hypertension, bronchial asthma/allergic eosinophilia/allergic bronchopulmonary aspergillosis with elevated IgE on chronic steroid Rx, JOANN status post surgery (CPAP intolerance), CIDP outpatient IVIG infusions, past tobacco abuse who presented with worsening chronic hand pain/back pain, weakness, shortness of breath. 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 EF 60 to 65%. Borderline concentric LVH. Grade 1 diastolic function. Attic valve is moderately calcified and possibly bicuspid. Moderate valvular aortic stenosis. Moderate mitral annular calcification. Mild mitral and tricuspid regurgitation. --CT chest:Bilateral pulmonary infiltrates, most pronounced in the right upper lobe. This likely represent bilateral pneumonia. --Urine for Legionella pending --Left Wrist MRI: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 Old fracture of the scaphoid with the proximal fracture fragment nonvisualized. ---Serological test for histoplasma, fungitell pending --Procalcitonin 11.9 --Urine culture no growth --ANASTASIIA on 09/18/23:Preliminary review reveals no vegetation to suggest endocarditis with limitations of calcified aortic valve. --Continue on cefepime, Flagyl, also on doxycycline>> cefazolin, Flagyl, Do xy>>Cefazolin Appreciate infectious disease, cardiology and pulmonary input Aspiration precautions Discontinue IV fluids Peripheral smear pending Will likely need repeat echocardiogram in 1 month Discussed with DEX Kapoor on 09/19/2023. Advised to discontinue doxycycline, Flagyl. Advised to continue cefazolin and requested Ortho to reevaluate Requested orthopedics to evaluate patient Slowly improving Acute metabolic encephalopathy Likely secondary to above Mental status back to baseline Monitor B/L Wrist osteoarthritis S/P left wrist arthrocentesis on 09/16/23 synovial fluid Cx growing staph species Appreciate orthopedics input Continue antibiotics as above MRI wrist as above Hypokalemia Replete electrolytes as needed Monitor Chronic Lower back Pain Likely due to spinal stenosis --Lumbar MR noted multilevel degenerative changes with severe canal stenosis and severe bilateral neuroforaminal stenosis --Hand CT Right noted severe narrowing of radiocarpal joint and intercarpal joints with subchondral erosions, partial collapse of wrist joint. Less likely septic joint --Hand CT left noted severe narrowing with mod sclerosis, subchondral cyst in radiocarpal and Intercarpal joints. Differential considerations include septic joint vs gout vs erosive OA -- Appreciate Orthopedics Input --Cautious use of pain medications H/O Bronchial asthma/allergic eosinophilia/allergic bronchopulmonary aspergillosis with elevated IgE on chronic steroid Rx Continue prednisone, montelukast, Trelegy Continue Nebs CIDP receiving outpatient IVIG infusions Outpatient follow up Hypertension Continue Losartan Resume HCTZ as able Monitor JOANN S/P surgery H/O CPAP intolerance New onset anemia Hemoptysis likely due to Pneumonia FOBT done at the ER was reported to be negative Also dilutional contributing Monitor CBC Past tobacco abuse per records DVT Px: Lovenox SQ--held due to hemoptysis SCDs for now Code Status Full code Admission and Anticipated Discharge Date Admission Date: September 12, 2023 Subjective Patient is seen and examined at bedside No new complaints States feeling better today Discussed with infectious disease and orthopedics today No significant cough today Denies any chest pain, dyspnea, dizziness, nausea, vomiting, abdominal pain Review of Systems Review of Systems: All systems reviewed & are unremarkable except as noted in Subjective Physical Exam Physical Exam: Physical Exam: Vitals signs as noted above General Appearance:Moderately built and nourished, no apparent distress Head: normocephalic, Atraumatic Eyes: normal inspection, EOMI Neck: supple, Trachea midline Respiratory/Chest:Normal breath sounds, CTA, No accessory muscle use Cardiovascular: S1, S2, + murmur Abdomen/GI:Soft, Non tender, Bowel sounds present Extremities/Musculoskeletal:normal inspection, 1+ edema Neurologic/Psych:AAOX3, grossly no focal neurological deficits Skin: normal color, warm Results & Data Results & Data Vital Signs (Past 12 Hours) Vital Signs Temp Pulse Pulse Resp BP Pulse Ox O2 Del Method 09/19/23 10:58 36.3 C L 99 H 20 113/73 93 Room Air 09/19/23 07:15 36.5 C 98 H 20 114/77 95 Room Air 09/19/23 07:00 104 H 09/19/23 03:47 36.7 C 107 H 18 108/76 95 Room Air Laboratory Results Short CBC 09/19/23 Range/Units 04:14 WBC 18.93 H (4.8-10.8) K/ul Hgb 11.7 L (14.0-18.0) g/dl Hct 34.8 L (42.0-52.0) % Plt Count 433 H (130-400) K/uL BMP 09/19/23 04:14 Sodium 130 L Potassium 3.5 Chloride 99 Carbon Dioxide 21 BUN 50 H Creatinine 0.96 Glucose 96 Calcium 9.7
[2023-09-19 19:28] LABS: Fungitell (1-3)-B-D-Glucan 92 pg/mL
[2023-09-20 06:37] LABS: BUN Creatinine Ratio 47.1 (10-20); Calcium 9.7 mg/dl (8.6-10.3); Creatinine Clr Calc Pharmacy 81.6 ml/min; Est GFR (African American) 86.5 ml/min; Est GFR (Non-African American) 74.6 ml/min; Potassium 3.7 mmol/L (3.5-5.1)
[2023-09-20] MEDS ORDERED: hydroCHLOROthiazide 25 MG TAB PO SCH (09:30)
--- NOTE | 2023-09-20 15:48 | Hospitalist Progress Note ---
Date of Service September 20, 2023 Assessment & Plan (1) Severe sepsis: Plan: 68 year old man with history significant for mild , hypertension, bronchial asthma/allergic eosinophilia/allergic bronchopulmonary aspergillosis with elevated IgE on chronic steroid Rx, JOANN status post surgery (CPAP intolerance), CIDP outpatient IVIG infusions, past tobacco abuse who presented with worsening chronic hand pain/back pain, weakness, shortness of breath. 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 EF 60 to 65%. Borderline concentric LVH. Grade 1 diastolic function. Attic valve is moderately calcified and possibly bicuspid. Moderate valvular aortic stenosis. Moderate mitral annular calcification. Mild mitral and tricuspid regurgitation. --CT chest:Bilateral pulmonary infiltrates, most pronounced in the right upper lobe. This likely represent bilateral pneumonia. --Urine for Legionella pending --Left Wrist MRI: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 Old fracture of the scaphoid with the proximal fracture fragment nonvisualized. ---Serological test for histoplasma, fungitell pending --Procalcitonin 11.9 --Urine culture no growth --ANASTASIIA on 09/18/23:Preliminary review reveals no vegetation to suggest endocarditis with limitations of calcified aortic valve. --Continue on cefepime, Flagyl, also on doxycycline>> cefazolin, Flagyl, Doxy>>Cefazolin Appreciate infectious disease, cardiology and pulmonary input Aspiration precautions Discontinue IV fluids Peripheral smear consistent with infectious process Will likely need repeat echocardiogram in 1 month Discussed with ID on 09/19/2023. Advised to discontinue doxycycline, Flagyl. Advised to continue cefazolin and requested Ortho to reevaluate Discussed with orthopedics on 09/19/23: Does not think that it is osteomyelitis. Likely severe posttraumatic arthritis. Clinically does not believe to be infected given dry tap, no effusion. No intervention, surgery recommended. Discussed with ID Dr. Lynne on 09/20/2023. Advised to complete 6-week course of IV cefazolin from first negative blood culture. Patient will require repeat echo to reevaluate for any vegetation given limited views due to calcified aortic valve per cardiology Will need rehab placement as able Acute metabolic encephalopathy Likely secondary to above Mental status back to baseline Monitor Suspected L Wrist osteoarthritis--less likely per orthopedics S/P left wrist arthrocentesis on 09/16/23 synovial fluid Cx: MSSA -Left Wrist MRI: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 Old fracture of the scaphoid with the proximal fracture fragment nonvisualized. Appreciate orthopedics input Continue antibiotics as above Will benefit from following with orthopedics as outpatient on discharge Hypokalemia Replete electrolytes as needed Monitor Chronic Lower back Pain Likely due to spinal stenosis --Lumbar MR noted multilevel degenerative changes with severe canal stenosis and severe bilateral neuroforaminal stenosis --Hand CT Right noted severe narrowing of radiocarpal joint and intercarpal joints with subchondral erosions, partial collapse of wrist joint. Less likely septic joint --Hand CT left noted severe narrowing with mod sclerosis, subchondral cyst in radiocarpal and Intercarpal joints. Differential considerations include septic joint vs gout vs erosive OA -- Appreciate Orthopedics Input --Cautious use of pain medications H/O Bronchial asthma/allergic eosinophilia/allergic bronchopulmonary aspergillosis with elevated IgE on chronic steroid Rx Continue prednisone, montelukast, Trelegy Continue Nebs CIDP receiving outpatient IVIG infusions Outpatient follow up Hypertension Continue Losartan Resume HCTZ as able Monitor JOANN S/P surgery H/O CPAP intolerance New onset anemia Hemoptysis likely due to Pneumonia FOBT done at the ER was reported to be negative Also dilutional contributing Monitor CBC Past tobacco abuse per records DVT Px: Lovenox SQ Code Status Full code Disposition Rehab as able Admission and Anticipated Discharge Date Admission Date: September 12, 2023 Subjective Patient is seen and examined at bedside Sitting in chair during my encounter States having intermittent nausea Continues to have left wrist pain and chronic back pain Discussed with infectious disease today cough resolved Denies any chest pain, dyspnea, dizziness, nausea, vomiting, abdominal pain Review of Systems Review of Systems: All systems reviewed & are unremarkable except as noted in Subjective Physical Exam Physical Exam: Physical Exam: Vitals signs as noted above General Appearance:Moderately built and nourished, no apparent distress Head: normocephalic, Atraumatic Eyes: normal inspection, EOMI Neck: supple, Trachea midline Respiratory/Chest:Normal breath sounds, CTA, No accessory muscle use Cardiovascular: S1, S2, + murmur Abdomen/GI:Soft, Non tender, Bowel sounds present Extremities/Musculoskeletal:normal inspection, 1+ edema Neurologic/Psych:AAOX3, grossly no focal neurological deficits Skin: normal color, warm Results & Data Results & Data Vital Signs (Past 12 Hours) Vital Signs Temp Pulse Pulse Resp BP Pulse Ox O2 Del Method 09/20/23 15:40 106 H 09/20/23 15:18 36.8 C 99 H 19 109/66 96 Room Air 09/20/23 10:49 36.7 C 105 H 20 108/72 92 Room Air 09/20/23 08:00 104 H 09/20/23 07:16 36.6 C 101 H 19 112/78 94 Room Air Laboratory Results [facility] 09/20/23 05:29 Sodium 132 L Potassium 3.7 Chloride 100 Carbon Dioxide 21 BUN 48 H Creatinine 1.02 Glucose 88 Calcium 9.7
--- NOTE | 2023-09-20 16:35 | Orthopedic Progress Note ---
Date of Service September 20, 2023 Assessment & Plan (1) Osteoarthritis of wrists, bilateral: Plan: He very clearly has severe bilateral posttraumatic wrist joint arthritis. Clinically and radiographically, left and right wrists are very similar. There is no wrist effusion on MRI to indicate septic arthritis, and no significant edema within the bone to indicate osteomyelitis. I discussed his previous left wrist arthrocentesis done on 09/15 with JYOTSNA Luong. There was no significant effusion that could be withdrawn, and certainly no purulence. He did report getting some blood in the syringe during the aspiration. He did have positive blood cultures at that time. The positive aspirate cultures are therefore likely contaminant from his bacteremia. Even so, it is very unlikely for a septic joint to cause systemic septicemia. I do not think his sepsis is related to his left wrist. I do not think he requires any urgent orthopedic surgical intervention. Orthopedics will sign off. Admission and Anticipated Discharge Date Admission Date: September 12, 2023 Subjective Patient resting comfortably, and sitting in his chair. He denies any complaints. When directly questioned about his wrists, he does endorse mild pain in both wrists, right equal to left. He again reports intermittent flareups of this bilateral wrist pain many times over the past 20 years, and this feels very similar. Physical Exam Physical Exam: Examination of both wrists reveals limited range of motion due to his known severe posttraumatic arthritis. He has fairly symmetric range of motion, with palpable crepitus in both wrists. He denies any significant pain with range of motion in either wrist. No palpable effusion in either wrist. He does have pitting edema in his left hand, but no significant erythema or induration around the wrist joint. Results & Data Vital Signs (Past 12 Hours) Vital Signs Temp Pulse Pulse Resp BP Pulse Ox O2 Del Method 09/20/23 15:40 106 H 09/20/23 15:18 36.8 C 99 H 19 109/66 96 Room Air 09/20/23 10:49 36.7 C 105 H 20 108/72 92 Room Air 09/20/23 08:00 104 H 09/20/23 07:16 36.6 C 101 H 19 112/78 94 Room Air Diagnostic Findings MRI of the left wrist with contrast was independently interpreted by me. This has the appearance of severe posttraumatic arthritis, likely consistent with a SLAC wrist. There is fragmentation and absence of the proximal scaphoid and triquetrum. The lunate looks basically absent and completely eroded. There is severe diffuse arthritis with extensive subchondral cystic change within the radiocarpal and midcarpal joints. No significant wrist joint effusion. No significant edema within the bone to indicate osteomyelitis. Significant subcutaneous edema is noted. (1) Osteoarthritis of wrists, bilateral Osteoarthritis type: unspecified Qualified Code(s): M19.031 - Primary osteoarthritis, right wrist; M19.032 - Primary osteoarthritis, left wrist
[2023-09-21] MEDS: IPRATROPIUM BROMIDE NEB SOLN 0.02% 0.5MG/2.5ML VIAL INH PRN (04:08)
[2023-09-21] MEDS: LEVALBUTEROL 1.25 MG/3 ML NEB NEB PRN (04:08)
[2023-09-21 06:53] LABS: Hematocrit (blood only) 33.2 % (42.0-52.0); Hemoglobin 10.9 g/dl (14.0-18.0); Mean Corpuscular Hemoglobin 30.4 pg (25.0-34.0); Mean Corpuscular Hgb Conc 32.8 g/dL (32.0-36.0); Mean Corpuscular Volume 92.5 fL (80.0-100.0); Mean Platelet Volume 10.7 fL (9.4-12.4); Platelet Count 485 K/uL (130-400); RDW Coefficient of Variation 14.9 % (11.5-14.5); RDW Standard Deviation 50.6 fL (36.4-46.3); Red Blood Count 3.59 M/uL (4.70-6.10); White Blood Count 15.56 K/ul (4.8-10.8)
[2023-09-21 07:08] LABS: BUN Creatinine Ratio 37.4 (10-20); Calcium 9.5 mg/dl (8.6-10.3); Creatinine Clr Calc Pharmacy 51.9 ml/min; Est GFR (African American) 49.1 ml/min; Est GFR (Non-African American) 42.4 ml/min; Potassium 3.8 mmol/L (3.5-5.1)
[2023-09-21] MEDS: hydroCHLOROthiazide 25 MG TAB PO SCH (08:57)
--- NOTE | 2023-09-21 09:25 | Hospitalist Progress Note ---
Date of Service September 21, 2023 Assessment & Plan (1) Severe sepsis: Plan: Per previous hospitalist w/ addendum 68 yo M with history significant for mild , hypertension, bronchial asthma/allergic eosinophilia/allergic bronchopulmonary aspergillosis with elevated IgE on chronic steroid Rx, JOANN status post surgery (CPAP intolerance), CIDP outpatient IVIG infusions, past tobacco abuse who presented with worsening chronic hand pain/back pain, weakness, shortness of breath. 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 EF 60 to 65%. Borderline concentric LVH. Grade 1 diastolic function. Attic valve is moderately calcified and possibly bicuspid. Moderate valvular aortic stenosis. Moderate mitral annular calcification. Mild mitral and tricuspid regurgitation. --CT chest:Bilateral pulmonary infiltrates, most pronounced in the right upper lobe. This likely represent bilateral pneumonia. 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 Old fracture of the scaphoid with the proximal fracture fragment nonvisualized. ---Serological test for histoplasma, fungitell pending --Procalcitonin 11.9 --Urine culture no growth --ANASTASIIA on 09/18/23: no vegetation to suggest endocarditis with limitations of calcified aortic valve. --Continue on cefepime, Flagyl, also on doxycycline>> cefazolin, Flagyl, Doxy>>Cefazolin Appreciate infectious disease, cardiology and pulmonary input Aspiration precautions Discontinue IV fluids Peripheral smear consistent with infectious process Will likely need repeat echocardiogram in 1 month Discussed with ID on 09/19/2023. Advised to discontinue doxycycline, Flagyl. Advised to continue cefazolin and requested Ortho to reevaluate Discussed with orthopedics on 09/19/23: Does not think that it is osteomyelitis. Likely severe posttraumatic arthritis. Clinically does not believe to be infected given dry tap, no effusion. No intervention, surgery recommended. Discussed with ID Dr. Lynne on 09/20/2023. Advised to complete 6-week course of IV cefazolin from first negative blood culture. Patient will require repeat echo to reevaluate for any vegetation given limited views due to calcified aortic valve per cardiology Will need rehab placement as able SUSAN Cr 1.6 on 09/20 will repeat BMP and will discus w/ nephrology currently pt has Collins placed Acute metabolic encephalopathy Likely secondary to above Mental status back to baseline Monitor Suspected L Wrist osteoarthritis--less likely per orthopedics S/P left wrist arthrocentesis on 09/16/23 synovial fluid Cx: MSSA -Left Wrist MRI: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 Old fracture of the scaphoid with the proximal fracture fragment nonvisualized. Appreciate orthopedics input Continue antibiotics as above Will benefit from following with orthopedics as outpatient on discharge Hypokalemia Replete electrolytes as needed Monitor Chronic Lower back Pain Likely due to spinal stenosis --Lumbar MR noted multilevel degenerative changes with severe canal stenosis and severe bilateral neuroforaminal stenosis --Hand CT Right noted severe narrowing of radiocarpal joint and intercarpal joints with subchondral erosions, partial collapse of wrist joint. Less likely septic joint --Hand CT left noted severe narrowing with mod sclerosis, subchondral cyst in radiocarpal and Intercarpal joints. Differential considerations include septic joint vs gout vs erosive OA -- Appreciate Orthopedics Input --Cautious use of pain medications H/O Bronchial asthma/allergic eosinophilia/allergic bronchopulmonary aspergillosis with elevated IgE on chronic steroid Rx Continue prednisone, montelukast, Trelegy Continue Nebs CIDP receiving outpatient IVIG infusions Outpatient follow up Hypertension Continue Losartan Resume HCTZ as able Monitor JOANN S/P surgery H/O CPAP intolerance New onset anemia Hemoptysis likely due to Pneumonia FOBT done at the ER was reported to be negative Also dilutional contributing Monitor CBC Past tobacco abuse per records DVT Px: Lovenox SQ Code Status Full code Disposition Rehab as able Admission and Anticipated Discharge Date Admission Date: September 12, 2023 Subjective Patient is seen and examined at bedside Sitting in chair during my encounter Continues to have left wrist pain and chronic back pain Previous provider discussed with infectious disease yesterday cough resolved Denies any chest pain, dyspnea, dizziness, nausea, vomiting, abdominal pain Cr elevated today at 1.6 - will repeat BMP and will discuss w/ nephrology Review of Systems Review of Systems: All systems reviewed & are unremarkable except as noted in Subjective Physical Exam Physical Exam: General Appearance:Moderately built and nourished, no apparent distress Head: normocephalic, Atraumatic Eyes: normal inspection, EOMI Neck: supple Respiratory/Chest:Normal breath sounds, CTA, No accessory muscle use Cardiovascular: S1, S2, + murmur Abdomen/GI:Soft, Non tender, Bowel sounds present Extremities/Musculoskeletal:normal inspection, 1+ edema LE b/l, + L hand edema Neurologic/Psych:AAOX3, answers appropriately, no facial asymmetry, moves extremities Skin: normal color, warm Results & Data Results & Data Vital Signs (Past 12 Hours) Vital Signs Temp Pulse Pulse Resp BP BP Pulse Ox 09/21/23 07:14 89 09/21/23 07:05 36.4 C L 91 H 17 128/76 92 09/21/23 04:08 82 16 93 09/21/23 02:46 36.4 C L 94 H 18 142/86 H 95 09/20/23 22:42 36.9 C 101 H 16 128/82 92 09/20/23 21:56 101 H O2 Del Method 09/21/23 07:14 09/21/23 07:05 Room Air 09/21/23 04:08 Room Air 09/21/23 02:46 Room Air 09/20/23 22:42 Room Air 09/20/23 21:56 Laboratory Results 09/21/23 09/14/23 Range/Units 05:34 15:03 WBC 15.56 H (4.8-10.8) K/ul RBC 3.59 L (4.70-6.10) M/uL Hgb 10.9 L (14.0-18.0) g/dl Hct 33.2 L (42.0-52.0) % MCV 92.5 (80.0-100.0) fL MCH 30.4 (25.0-34.0) pg MCHC 32.8 (32.0-36.0) g/dL RDW Std Deviation 50.6 H (36.4-46.3) fL RDW Coeff of Karishma 14.9 H (11.5-14.5) % Plt Count 485 H (130-400) K/uL MPV 10.7 (9.4-12.4) fL Sodium 131 L (136-145) mmol/L Potassium 3.8 (3.5-5.1) mmol/L Chloride 100 (98-107) mmol/L Carbon Dioxide 22 (21-32) mmol/L Anion Gap 9 (3-11) BUN 61 H (6-23) mg/dl Creatinine 1.63 H D (0.6-1.4) mg/dl Est Cr Clr Drug Dosing 51.9 ml/min Est GFR ( Amer) 49.1 ml/min Est GFR (Non-Af Amer) 42.4 ml/min BUN/Creatinine Ratio 37.4 H (10-20) Glucose 108 H (70-99(Fasting)) mg/dl Calcium 9.5 (8.6-10.3) mg/dl Miscellaneous Test REPORT Medications Administered Current Inpatient Medications Acetaminophen (Acetaminophen 500 Mg Tab) 500 mg PO Q6H PRN PRN Reason: fever/pain Stop: 10/12/23 02:46 Last Admin: 09/19/23 06:32 Dose: 500 mg Atorvastatin Calcium (Atorvastatin 10 Mg Tab) 10 mg PO QAM [facility] Stop: 10/13/23 08:59 Last Admin: 09/21/23 08:58 Dose: 10 mg Azelastine HCl (Azelastine Hcl 0.1% Nasal 200 Sprays/27,400 Mcg Btl) 1 sprays NA DAILY [facility] Stop: 10/12/23 08:59 Last Admin: 09/21/23 08:55 Dose: 1 sprays Benzonatate (Benzonatate 100 Mg Capsule) 100 mg PO TID PRN PRN Reason: Cough Stop: 10/14/23 02:10 Cyclobenzaprine HCl (Cyclobenzaprine Hcl 5 Mg Tab) 5 mg PO BID PRN PRN Reason: Muscle Spasm Stop: 10/12/23 08:11 Last Admin: 09/21/23 05:32 Dose: 5 mg Duloxetine HCl (Duloxetine Hcl 60 Mg Cap) 60 mg PO DAILY [facility] Stop: 10/12/23 08:59 Last Admin: 09/21/23 08:58 Dose: 60 mg Enoxaparin Sodium (Enoxaparin Inj 40 Mg/0.4 Ml Syr) 40 mg SQ QAM [facility] Stop: 10/12/23 08:59 Last Admin: 09/21/23 08:56 Dose: 40 mg Fluticasone/Vilanterol (Fluticasone/Vilanterol 200/25mcg 14 Puffs/Inhaler) 1 puffs INH DAILY [facility] Stop: 10/12/23 08:59 Last Admin: 09/21/23 08:55 Dose: 1 puffs Gabapentin (Gabapentin 300 Mg Cap) 300 mg PO HS [facility] Stop: 10/12/23 20:59 Last Admin: 09/20/23 20:09 Dose: 300 mg Haloperidol Lactate (Haloperidol Lactate 5 Mg/Ml 1 Ml Vial) 2 mg IM Q2H PRN PRN Reason: Agitation Stop: 10/14/23 04:22 Hydrochlorothiazide (Hydrochlorothiazide 25 Mg Tab) 25 mg PO QAM [facility] Stop: 10/21/23 08:59 Last Admin: 09/21/23 08:57 Dose: 25 mg Promethazine HCl 12.5 mg/ (Sodium Chloride) 50.5 mls @ 202 mls/hr IV Q6H PRN PRN Reason: Nausea And Vomiting Stop: 10/12/23 03:37 Last Infusion: 09/14/23 01:00 Dose: Infused Cefazolin Sodium (Ancef 2000mg) 2,000 mg in 15 mls @ 3.75 mls/min IV Q8H [facility] Stop: 10/01/23 11:59 Last Admin: 09/21/23 04:37 Dose: 3.75 mls/min Ipratropium Nelson (Ipratropium Nelson Neb Soln 0.02% 0.5mg/2.5ml Vial) 0.5 mg INH Q6R PRN PRN Reason: Wheezing Stop: 10/17/23 10:26 Last Admin: 09/21/23 04:08 Dose: 0.5 mg Labetalol HCl (Labetalol Hcl Iv 5 Mg/Ml 20ml) 10 mg IV Q6H PRN PRN Reason: Hypertension SBP>180orDBP>100 Stop: 10/17/23 09:10 Levalbuterol HCl (Levalbuterol 1.25 Mg/3 Ml Neb) 1.25 mg NEB Q4H PRN; Protocol PRN Reason: Shortness Of Breath Or Wheezing Stop: 10/14/23 05:38 Last Admin: 09/21/23 04:08 Dose: 1.25 mg Levalbuterol HCl (Levalbuterol 1.25 Mg/3 Ml Neb) 1.25 mg NEB Q6R PRN PRN Reason: Wheezing Stop: 10/14/23 05:59 Losartan Potassium (Losartan Potassium 50 Mg Tab) 50 mg PO QAM [facility] Stop: 10/14/23 08:59 Last Admin: 09/21/23 08:58 Dose: 50 mg Meloxicam (Meloxicam 7.5 Mg Tab) 7.5 mg PO QAM [facility] Stop: 10/12/23 08:59 Last Admin: 09/13/23 08:37 Dose: 7.5 mg Metoprolol Succinate (Metoprolol Succ 25mg Ext Rel Tab) 25 mg PO QAM [facility] Stop: 10/12/23 09:29 Last Admin: 09/21/23 08:57 Dose: 25 mg Mometasone Furoate (Mometasone Furoate 17 Gm Inhaler) 2 sprays NA DAILY [facility] Stop: 10/15/23 08:59 Last Admin: 09/21/23 08:55 Dose: 2 sprays Montelukast Sodium (Montelukast Sodium 10 Mg Tablet) 10 mg PO QAM [facility] Stop: 10/12/23 08:59 Last Admin: 09/21/23 08:58 Dose: 10 mg Morphine Sulfate (Morphine Sulfate 4 Mg/Ml 1 Ml Carp\Vial) 4 mg IV Q4H PRN PRN Reason: Pain Stop: 09/26/23 03:37 Last Admin: 09/12/23 17:18 Dose: 4 mg Multi-Ingredient Mouthwash/Gargle (First - Mouthwash Blm 119 Ml) 5 ml PO QID [facility] Stop: 10/19/23 12:59 Last Admin: 09/21/23 08:56 Dose: 5 ml Multivitamins (Multivitamin Tab) 1 tab PO DAILY [facility] Stop: 10/12/23 08:59 Last Admin: 09/21/23 08:57 Dose: 1 tab Oxycodone HCl (Oxycodone Hcl Ir 5 Mg Tab (Immediate Release)) 5 mg PO QID PRN PRN Reason: Pain Stop: 09/26/23 02:46 Last Admin: 09/21/23 08:19 Dose: 5 mg Potassium Chloride (Potassium Chloride 10 Meq Tabcr) 10 meq PO BID [facility] Stop: 10/18/23 20:59 Last Admin: 09/21/23 08:57 Dose: 10 meq Prednisone (Prednisone 10 Mg Tablet) 10 mg PO QAM [facility] Stop: 10/15/23 08:59 Last Admin: 09/21/23 08:58 Dose: 10 mg Umeclidinium Nelson (Umeclidinium Nelson 62.5mcg/Blister 7 Puffs/Inhaler) 1 puffs INH DAILY [facility] Stop: 10/12/23 08:59 Last Admin: 09/21/23 08:55 Dose: 1 puffs
[2023-09-21 14:32] LABS: Calcium 9.5 mg/dl (8.6-10.3); Potassium 4.6 mmol/L (3.5-5.1)
[2023-09-21 14:44] LABS: BUN Creatinine Ratio 35.7 (10-20); Est GFR (African American) 52.6 ml/min; Est GFR (Non-African American) 45.4 ml/min
--- NOTE | 2023-09-21 18:52 | Nephrology Consultation ---
Date of Consultation September 21, 2023 Assessment & Plan (1) SUSAN (acute kidney injury): abrupt stage 1 nonoliguric SUSAN in the setting of therapy for MSSA bacteremia. complicated by mild hyponatremia and drop in bicarbonate. abruptness of change in function is remarkable but as yet no explanation. DDX is broad and includes ATN, prerenal, AIN, post infectious GN +/- others. not oliguric but UOP has dropped off past 48 hrs to about 500 mL daily from 1-2L daily previously -held hctz, losartan (had both of those this am); held meloxicam >> renal function may worsen tomorrow given recent doses of first 2 meds -cont to avoid nsaids -repeat UA ordered along w/ urine studies to better understand renal ddx and sodium issues -no indication to repeat renal imaging yet -daily bmp; will check serum osms in AM -low threshold to remove carr but will leave it for now >>given worsening back stiffening/ongoing pain and MRI findings > doubt occult infection nidus but may be worth having neuro/spine ortho eval severe stenosis if not already compared to prior/recent studies History of Present Illness Reason for Consultation: SUSAN Requesting Physician: Dr Coleman Attending Physician: Renny Coleman MD History of Present Illness 68 y/o M whom I'm asked to see for SUSAN was admitted 09/11 for severe sepsis from bilateral pneumonia and MSSA bacteremia after presenting with worsening chronic hand pain/back pain, weakness, shortness of breath. 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 Prior to presentation he had about 3 wks of R wrist pain/hand swelling which started w/ loading pellet sack into a stove; a week later L wrist/hand swelled w/o known trauma; pain resistant to conservative measures. Had dysuria week prior to presentation at [facility] > OP urine cx w/ S aureus, treated w/ bactrim x 1 wk. noted more back pain in days prior to presentation. 09/11 and 09/12 blood cxs grew MSSA; f/u cxs negative 09/17. on cefazolin monotherapy since 09/16 when abtx were narrowed considerably. ANASTASIIA unrevealing. Left wrist aspirate obtained September 15 grew MSSA. Baseline creatinine 0.9, most recently 07/2023. Was 1.0 on presentation; was in this range through admission so far until this am when creatinine went abruptly to 1.6; down to 1.5 in early afternoon. bicarb dropped to 19. he also had sodium 130 today and it's been in this range for several days. a few transient lower sbp in 90s past 24 hrs but not sustained. No IV contrast since admission for imaging. Had 2 doses of meloxicam early in admission, last one 09/12. no other nsaids. has multiple doses of IV lasix at least once every day of admission 09/13-09/18. Had first dose of hctz this am. His losartan 50 mg daily has been continued since admission including today. on K 10 mEq bid currently. he has a carr and if I/O are to be believed is about 1.1 L positive to date on this admission. on daily standing and prn nsaids as OP as well as hctz; no other OP diuretics. this evening, pt Denies orthostatic or presyncopal symptoms. Feels his edema is about at baseline particularly in his lower extremities. Ongoing moderately diminished appetite which is no worse now than it was 1 month back. He does have considerable stiffness in his lower back which is worsened by lying down in bed and has been limiting his mobility. Low back stiffness is noticeable more in the past week than it was 1 month ago. No fevers or chills. No rash. No new or worrisome voiding symptoms including no gross hematuria or dysuria. Tells me he has had a Carr for about half of the admission so far. Did have 1 loose bowel movement today but otherwise no nausea vomiting heartburn and generally no diarrhea or constipation. Feels his breathing is at baseline. No coughing or wheezing or dyspnea. Allergies Allergy/AdvReac Type Severity Reaction Status Date / Time amoxicillin AdvReac Intermediate made me Verified 09/12/23 08:49 feel weird Home Medications Medication Instructions Recorded Confirmed Type albuterol sulfate 2.5 mg/3 mL 1 vial continuous nebulization Q4 08/13/18 09/12/23 History (0.083 %) solution for nebulization PRN Shortness Of Breath Or Wheezing albuterol sulfate 90 mcg/actuation 2 puff inhalation Q4 PRN Shortness 08/13/18 09/12/23 History aerosol inhaler Of Breath Or Wheezing fluticasone 500 mcg-salmeterol 50 1 puff inhalation BID 08/13/18 09/12/23 History mcg/dose blistr powdr for inhalation meloxicam 7.5 mg tablet 7.5 mg PO DAILY 08/13/18 09/12/23 History metaxalone 800 mg tablet 800 mg PO TID PRN Muscle Spasm 08/13/18 09/12/23 History metoprolol succinate 25 mg 25 mg PO UD 08/13/18 09/12/23 History tablet,extended release 24 hr mometasone 50 mcg/actuation nasal 2 spray intranasal DAILY 08/13/18 09/12/23 History spray montelukast 10 mg tablet 10 mg PO QAM 08/13/18 09/12/23 History azelastine 137 mcg (0.1 %) nasal 2 spray intranasal BID 05/10/20 09/12/23 History spray aerosol prednisone 10 mg tablet 10 - 30 mg PO QAM 05/10/20 09/12/23 History pseudoephedrine-guaifenesin ER 60 1 tab PO BID PRN Congestion 05/10/20 09/12/23 History mg-600 mg tablet,extend release 12hr (Mucinex D) aspirin-caffeine 400 mg-32 mg See Rx Instructions .Route .COMPLEX 09/15/21 09/12/23 History tablet (Anacin) cyclobenzaprine 5 mg tablet 5 mg PO BID PRN Muscle Spasm 09/15/21 09/12/23 History duloxetine 60 mg capsule,delayed 60 mg PO DAILY 09/15/21 09/12/23 History release gabapentin 100 mg capsule 300 mg PO HS 09/15/21 09/12/23 History hydrochlorothiazide 25 mg tablet 25 mg PO QAM 09/15/21 09/12/23 History mepolizumab 100 mg subcutaneous 0 mg subcut UD 09/15/21 09/12/23 History solution (Nucala) multivitamin 1 tab PO DAILY 09/15/21 09/12/23 History tiotropium bromide 2.5 2 puff inhalation QAM 09/15/21 09/12/23 History mcg/actuation mist for inhalation (Spiriva Respimat) atorvastatin 10 mg tablet 10 mg PO QAM 09/12/23 09/12/23 History cholecalciferol (vitamin D3) 25 25 mcg PO QAM 09/12/23 09/12/23 History mcg (1,000 unit) capsule (Vitamin D3) hydralazine 25 mg tablet 25 mg PO Q4H PRN BP over 160/100 09/12/23 09/12/23 History hydrochlorothiazide 12.5 mg capsule See Rx Instructions .Route .COMPLEX 09/12/23 09/12/23 History losartan 25 mg tablet 50 mg PO QAM 09/12/23 09/12/23 History naproxen 500 mg tablet 500 mg PO BID pain 09/12/23 09/12/23 History omega-3 fatty acids-vitamin E 1 cap PO QAM 09/12/23 09/12/23 History 1,000 mg capsule riboflavin (vitamin B2) 100 mg 400 mg PO QAM 09/12/23 09/12/23 History tablet (Vitamin B-2) Patient History Medical History (Updated 09/21/23 @ 19:18 by Odalys Hayes MD, PhD) Chronic inflammatory demyelinating neuropathy MSSA bacteremia Aortic stenosis Ambulates with cane Chronic sinusitis Long-term current use of steroids Allergic bronchopulmonary aspergillosis JOANN (obstructive sleep apnea) no device Asthma inhaler daily and prn Benign essential HTN HTN (hypertension) Hernia Surgical History History of colonoscopy History of tooth extraction History of tonsillectomy Status post uvulopalatopharyngoplasty History of ear surgery mastoid sx S/P hernia surgery Family History Grandfather (Paternal) Family history of diabetes mellitus Grandfather (Maternal) Family history of diabetes mellitus Family history of esophageal cancer Other Asthma No family history of adverse response to anesthesia Social History Smoking Status: Former smoker Second Hand Exposure: No; Do You Dip or Chew Tobacco: No (quit 10 years ago); Hx Alcohol Use: Yes Alcohol type: beer Hx Substance Use: No Preferred Language: [place] Islander Communication Ability: Effective Sprinkler Helper Required: No Beliefs That Will Affect Care: None Current Living Situation: Spouse current occupational status: employed Other Information That Helps Us Care for You: No Feels Safe at Home: Yes Safety Concerns: Feels Safe At This Time Assistive Devices: Cane Review of Systems 2 Review of Systems: All systems reviewed & are unremarkable except as noted in HPI & below Physical Exam 2 Constitutional: well developed, well nourished, + physical limitations and cooperative; no acute distress Eyes: EOM intact bilaterally ENMT: Ears: no external ear abnormality Nose: no external nose abnormality Mouth: + dry oral mucous membranes Neck: no nuchal rigidity Respiratory: normal respiratory effort Auscultation: + diminished lung sounds Cardiovascular: Rate/Rhythm: regular rate and regular rhythm Extremities: + edema (2+ to 3+ pitting bilateral lower extremity edema to the knees and 3+ pedal ) Gastrointestinal (Abdomen): Inspection/Auscultation: normal bowel sounds P ercussion/Palpation: abdomen soft; abdomen nontender Musculoskeletal: Extremities: strength 5/5 throughout Bilateral wrist swelling markedly worse on left wrist and dorsum of left hand Skin: no rashes, warm and dry Neurologic: shipman, fluent speech, no tremor Psychiatric: Orientation: alert and oriented x 3 Speech: normal rate/rhythm/volume of speech Affect: euthymic affect Results & Data Vital Signs (Past 12 Hours) Vital Signs Temp Pulse Pulse Resp BP Pulse Ox O2 Del Method 09/21/23 16:24 36.7 C 99 H 16 98/64 L 93 Room Air 09/21/23 15:32 100 H 09/21/23 11:00 36.4 C L 99 H 17 119/77 94 Room Air 09/21/23 07:14 89 09/21/23 07:05 36.4 C L 91 H 17 128/76 92 Room Air Laboratory Results 09/21/23 05:34 09/21/23 13:59 Diagnostic Findings unremarkable chest/a/p CT w/ iv con on 09/10; MRI lumbar spine 09/11 >> severe canal and BL neuroforaminal stenosis
[2023-09-22 03:12] LABS: Appearance Urine Cloudy (Clear); Bilirubin Urine Negative (Negative); Blood Urine Trace (Negative); Color Urine Dark Yellow; Epithelial Cell Urine Auto 20-30 /lpf (0-5); Glucose Urine UA Negative (Negative); Ketones Urine Trace (Negative); Leukocyte Esterase Urine Negative (Negative); Nitrite Urine Negative (Negative); Protein Urine 1+ (Negative); RBC Urine Automated 0-4 /hpf (0-4); Specific Gravity Urine 1.026 (1.000-1.030); Urobilinogen Urine Negative (Negative)
[2023-09-22 03:33] LABS: Urine Potassium 86.6 mmol/L
[2023-09-22 03:45] LABS: Uric Acid Crystals Urine Present (None Prsent)
[2023-09-22 03:46] LABS: Amorphous Sediment Urine Present (None Prsent); Bacteria Urine Automated 1+ (Negative); Mucus Urine Present (None Prsent); Sperm Urine Present (None Prsent)
[2023-09-22 06:24] LABS: Hematocrit (blood only) 33.8 % (42.0-52.0); Hemoglobin 10.9 g/dl (14.0-18.0); Mean Corpuscular Hemoglobin 30.6 pg (25.0-34.0); Mean Corpuscular Hgb Conc 32.2 g/dL (32.0-36.0); Mean Corpuscular Volume 94.9 fL (80.0-100.0); Mean Platelet Volume 10.7 fL (9.4-12.4); Platelet Count 536 K/uL (130-400); RDW Coefficient of Variation 15.1 % (11.5-14.5); RDW Standard Deviation 52.6 fL (36.4-46.3); Red Blood Count 3.56 M/uL (4.70-6.10); White Blood Count 15.58 K/ul (4.8-10.8)
[2023-09-22 06:58] LABS: BUN Creatinine Ratio 43.2 (10-20); Calcium 9.8 mg/dl (8.6-10.3); Creatinine Clr Calc Pharmacy 56.5 ml/min; Est GFR (African American) 55.2 ml/min; Est GFR (Non-African American) 47.6 ml/min; Magnesium 2.3 mg/dl (1.7-2.4); Phosphorus 3.5 mg/dl (2.5-4.9); Potassium 4.1 mmol/L (3.5-5.1)
--- NOTE | 2023-09-22 08:59 | Nephrology Progress Note ---
Date of Service September 22, 2023 Assessment & Plan (1) SUSAN (acute kidney injury): Plan: nonoliguric improving minimally and slowly but abrupt stage 1 SUSAN in the setting of therapy for MSSA bacteremia. complicated by mild hyponatremia and drop in bicarbonate. abruptness of change in function is remarkable but as yet no explanation. DDX is broad and includes ATN, prerenal, AIN, post infectious GN +/- others. not oliguric but UOP has dropped off w/ him being off of diuretics. baseline creatinine 0.9-1.0 UA notable for trace ketones, for trace blood, 1+ protein, very concentrated urine, uric acid crystals, 1+ bacteria >> concentrated urine w/ low urine sodium and w/ crystals c/w prerenal process -held hctz, losartan (had both of those 3 am); held meloxicam >>cont to hold -cont to avoid nsaids >>encourage po intake -remove carr; f/u urine cx -no indication to repeat renal imaging yet -daily bmp >>given worsening back stiffening/ongoing pain and MRI findings > doubt occult infection nidus but may be worth having neuro/spine ortho eval severe stenosis if not already compared to prior/recent studies Admission and Anticipated Discharge Date Admission Date: September 12, 2023 Subjective no acute interval events. today feels edema may be a bit worse. slept in chair w/ feet down; not able d/t back issues to tolerate elevating feet. no n/v/d, thirst, or sob Review of Systems 2 Review of Systems: All systems reviewed & are unremarkable except as noted in Subjective Physical Exam 2 Constitutional: well developed, well nourished, + physical limitations and cooperative; no acute distress Eyes: EOM intact bilaterally ENMT: Ears: no external ear abnormality Nose: no external nose abnormality Mouth: + dry oral mucous membranes Neck: no nuchal rigidity Respiratory: normal respiratory effort Auscultation: + diminished lung sounds Cardiovascular: Rate/Rhythm: regular rate and regular rhythm Extremities: + edema (2+ to 3+ pitting bilateral lower extremity edema to the knees and 3+ pedal ) Gastrointestinal (Abdomen): Inspection/Auscultation: normal bowel sounds P ercussion/Palpation: abdomen soft; abdomen nontender Musculoskeletal: Extremities: strength 5/5 throughout Skin: no rashes, warm and dry Psychiatric: Orientation: alert and oriented x 3 Speech: normal rate/rhythm/volume of speech Affect: euthymic affect Results & Data Vital Signs (Past 12 Hours) Vital Signs Temp Pulse Pulse Resp BP BP Pulse Ox 09/22/23 07:27 104 H 09/22/23 07:00 36.6 C 65 16 113/75 96 09/22/23 03:20 36.5 C 86 18 129/85 91 09/21/23 22:58 36.6 C 102 H 18 149/96 H 91 09/21/23 22:00 100 H O2 Del Method 09/22/23 07:27 09/22/23 07:00 Room Air 09/22/23 03:20 Room Air 09/21/23 22:58 Room Air 09/21/23 22:00 Laboratory Results 09/22/23 05:21 09/22/23 05:21
--- NOTE | 2023-09-22 09:11 | Hospitalist Progress Note ---
Date of Service September 22, 2023 Assessment & Plan (1) Severe sepsis: Plan: Per previous hospitalist w/ addendum 68 yo M with history significant for mild , hypertension, bronchial asthma/allergic eosinophilia/allergic bronchopulmonary aspergillosis with elevated IgE on chronic steroid Rx, JOANN status post surgery (CPAP intolerance), CIDP outpatient IVIG infusions, past tobacco abuse who presented with worsening chronic hand pain/back pain, weakness, shortness of breath. 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 EF 60 to 65%. Borderline concentric LVH. Grade 1 diastolic function. Attic valve is moderately calcified and possibly bicuspid. Moderate valvular aortic stenosis. Moderate mitral annular calcification. Mild mitral and tricuspid regurgitation. --CT chest:Bilateral pulmonary infiltrates, most pronounced in the right upper lobe. This likely represent bilateral pneumonia. 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 Old fracture of the scaphoid with the proximal fracture fragment nonvisualized. ---Serological test for histoplasma, fungitell pending --Procalcitonin 11.9 --Urine culture no growth --ANASTASIIA on 09/18/23: no vegetation to suggest endocarditis with limitations of calcified aortic valve. --Continue on cefepime, Flagyl, also on doxycycline>> cefazolin, Flagyl, Doxy>>Cefazolin Appreciate infectious disease, cardiology and pulmonary input Aspiration precautions Discontinue IV fluids Peripheral smear consistent with infectious process Will likely need repeat echocardiogram in 1 month Discussed with ID on 09/19/2023. Advised to discontinue doxycycline, Flagyl. Advised to continue cefazolin and requested Ortho to reevaluate Discussed with orthopedics on 09/19/23: Does not think that it is osteomyelitis. Likely severe posttraumatic arthritis. Clinically does not believe to be infected given dry tap, no effusion. No intervention, surgery recommended. Discussed with ID Dr. Lynne on 09/20/2023. Advised to complete 6-week course of IV cefazolin from first negative blood culture. 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 Old fracture of the scaphoid with the proximal fracture fragment nonvisualized. Appreciate orthopedics input Continue antibiotics as above Will benefit from following with orthopedics as outpatient on discharge Hypokalemia Replete electrolytes as needed Monitor Chronic Lower back Pain Likely due to spinal stenosis --Lumbar MR noted multilevel degenerative changes with severe canal stenosis and severe bilateral neuroforaminal stenosis --Hand CT Right noted severe narrowing of radiocarpal joint and intercarpal joints with subchondral erosions, partial collapse of wrist joint. Less likely septic joint --Hand CT left noted severe narrowing with mod sclerosis, subchondral cyst in radiocarpal and Intercarpal joints. Differential considerations include septic joint vs gout vs erosive OA -- Appreciate Orthopedics Input --Cautious use of pain medications H/O Bronchial asthma/allergic eosinophilia/allergic bronchopulmonary aspergillosis with elevated IgE on chronic steroid Rx Continue prednisone, montelukast, Trelegy Continue Nebs CIDP receiving outpatient IVIG infusions Outpatient follow up Hypertension Continue Losartan Resume HCTZ as able Monitor JOANN S/P surgery H/O CPAP intolerance New onset anemia Hemoptysis likely due to Pneumonia FOBT done at the ER was reported to be negative Also dilutional contributing Monitor CBC Past tobacco abuse per records DVT Px: Lovenox SQ Code Status Full code Disposition Rehab as able Admission and Anticipated Discharge Date Admission Date: September 12, 2023 Subjective Patient is seen and examined at bedside Sitting in chair during my encounter Continues to have left wrist pain/ edema and chronic back pain Previous provider discussed with infectious disease cough resolved Denies any chest pain, dyspnea, dizziness, nausea, vomiting, abdominal pain Cr elevated yesterday at 1.6 - nephrology following Review of Systems Review of Systems: All systems reviewed & are unremarkable except as noted in Subjective Physical Exam Physical Exam: General Appearance:Moderately built and nourished, no apparent distress Head: normocephalic, Atraumatic Eyes: normal inspection, EOMI Neck: supple Respiratory/Chest:Normal breath sounds, CTA, No accessory muscle use Cardiovascular: S1, S2, + murmur Abdomen/GI:Soft, Non tender, Bowel sounds present Extremities/Musculoskeletal:normal inspection, 1+ edema LE b/l, + L hand edema Neurologic/Psych:AAOX3, answers appropriately, no facial asymmetry, moves extremities Skin: normal color, warm Results & Data Results & Data Vital Signs (Past 12 Hours) Vital Signs Temp Pulse Pulse Resp BP BP Pulse Ox 09/22/23 07:27 104 H 09/22/23 07:00 36.6 C 65 16 113/75 96 09/22/23 03:20 36.5 C 86 18 129/85 91 09/21/23 22:58 36.6 C 102 H 18 149/96 H 91 09/21/23 22:00 100 H O2 Del Method 09/22/23 07:27 09/22/23 07:00 Room Air 09/22/23 03:20 Room Air 09/21/23 22:58 Room Air 09/21/23 22:00 Laboratory Results 09/22/23 09/22/23 09/21/23 Range/Units Unknown 05:21 13:59 WBC 15.58 H (4.8-10.8) K/ul RBC 3.56 L (4.70-6.10) M/uL Hgb 10.9 L (14.0-18.0) g/dl Hct 33.8 L (42.0-52.0) % MCV 94.9 (80.0-100.0) fL MCH 30.6 (25.0-34.0) pg MCHC 32.2 (32.0-36.0) g/dL RDW Std Deviation 52.6 H (36.4-46.3) fL RDW Coeff of Karishma 15.1 H (11.5-14.5) % Plt Count 536 H (130-400) K/uL MPV 10.7 (9.4-12.4) fL Sodium 132 L 130 L (136-145) mmol/L Potassium 4.1 4.6 D (3.5-5.1) mmol/L Chloride 100 100 (98-107) mmol/L Carbon Dioxide 21 19 L (21-32) mmol/L Anion Gap 11 11 (3-11) BUN 64 H 55 H (6-23) mg/dl Creatinine 1.48 H 1.54 H (0.6-1.4) mg/dl Est Cr Clr Drug Dosing 56.5 55.0 ml/min Est GFR ( Amer) 55.2 52.6 ml/min Est GFR (Non-Af Amer) 47.6 45.4 ml/min BUN/Creatinine Ratio 43.2 H 35.7 H (10-20) Glucose 101 H 128 H (70-99(Fasting)) mg/dl Osmolality 298 (280-300) mOsm/kg Calcium 9.8 9.5 (8.6-10.3) mg/dl Phosphorus 3.5 (2.5-4.9) mg/dl Magnesium 2.3 (1.7-2.4) mg/dl Urine Color Dark Yellow Urine Appearance Cloudy A (Clear) Urine pH 5.0 (4.5-7.5) Ur Specific Ernul 1.026 (1.000-1.030) Urine Protein 1+ H (Negative) Urine Glucose (UA) Negative (Negative) Urine Ketones Trace H (Negative) Urine Blood Trace H (Negative) Urine Nitrite Negative (Negative) Urine Bilirubin Negative (Negative) Urine Urobilinogen Negative (Negative) Ur Leukocyte Esterase Negative (Negative) Urine WBC (Auto) 1-5 (0-5) /hpf Urine RBC (Auto) 0-4 (0-4) /hpf U Hyaline Cast (Auto) 5-10 H (0-5) /lpf U Epithel Cells (Auto) 20-30 H (0-5) /lpf Urine Bacteria (Auto) 1+ H (Negative) Uric Acid Crystals Present A (None Prsent) Amorphous Sediment Present A (None Prsent) Urine Mucus Present A (None Prsent) Urine Yeast Not Reportable Urine Sperm Present A (None Prsent) Urine Osmolality 535 (500-800) mOsm/kg Urine Sodium 10 mmol/L Urine Potassium 86.6 mmol/L Urine Chloride 19 mmol/L Medications Administered Current Inpatient Medications Acetaminophen (Acetaminophen 500 Mg Tab) 500 mg PO Q6H PRN PRN Reason: fever/pain Stop: 10/12/23 02:46 Last Admin: 09/19/23 06:32 Dose: 500 mg Atorvastatin Calcium (Atorvastatin 10 Mg Tab) 10 mg PO QAM [facility] Stop: 10/13/23 08:59 Last Admin: 09/21/23 08:58 Dose: 10 mg Azelastine HCl (Azelastine Hcl 0.1% Nasal 200 Sprays/27,400 Mcg Btl) 1 sprays NA DAILY [facility] Stop: 10/12/23 08:59 Last Admin: 09/21/23 08:55 Dose: 1 sprays Benzonatate (Benzonatate 100 Mg Capsule) 100 mg PO TID PRN PRN Reason: Cough Stop: 10/14/23 02:10 Cyclobenzaprine HCl (Cyclobenzaprine Hcl 5 Mg Tab) 5 mg PO BID PRN PRN Reason: Muscle Spasm Stop: 10/12/23 08:11 Last Admin: 09/21/23 23:43 Dose: 5 mg Duloxetine HCl (Duloxetine Hcl 60 Mg Cap) 60 mg PO DAILY [facility] Stop: 10/12/23 08:59 Last Admin: 09/21/23 08:58 Dose: 60 mg Enoxaparin Sodium (Enoxaparin Inj 40 Mg/0.4 Ml Syr) 40 mg SQ QAM [facility] Stop: 10/12/23 08:59 Last Admin: 09/21/23 08:56 Dose: 40 mg Fluticasone/Vilanterol (Fluticasone/Vilanterol 200/25mcg 14 Puffs/Inhaler) 1 puffs INH DAILY [facility] Stop: 10/12/23 08:59 Last Admin: 09/21/23 08:55 Dose: 1 puffs Gabapentin (Gabapentin 300 Mg Cap) 300 mg PO HS [facility] Stop: 10/12/23 20:59 Last Admin: 09/21/23 21:05 Dose: 300 mg Haloperidol Lactate (Haloperidol Lactate 5 Mg/Ml 1 Ml Vial) 2 mg IM Q2H PRN PRN Reason: Agitation Stop: 10/14/23 04:22 Hydrochlorothiazide (Hydrochlorothiazide 25 Mg Tab) 25 mg PO QAM [facility] Stop: 10/21/23 08:59 Last Admin: 09/21/23 08:57 Dose: 25 mg Promethazine HCl 12.5 mg/ (Sodium Chloride) 50.5 mls @ 202 mls/hr IV Q6H PRN PRN Reason: Nausea And Vomiting Stop: 10/12/23 03:37 Last Infusion: 09/14/23 01:00 Dose: Infused Cefazolin Sodium (Ancef 2000mg) 2,000 mg in 15 mls @ 3.75 mls/min IV Q8H [facility] Stop: 10/29/23 23:59 Last Admin: 09/22/23 04:06 Dose: 3.75 mls/min Ipratropium [place] (Ipratropium [place] Neb Soln 0.02% 0.5mg/2.5ml Vial) 0.5 mg INH Q6R PRN PRN Reason: Wheezing Stop: 10/17/23 10:26 Last Admin: 09/21/23 04:08 Dose: 0.5 mg Labetalol HCl (Labetalol Hcl Iv 5 Mg/Ml 20ml) 10 mg IV Q6H PRN PRN Reason: Hypertension SBP>180orDBP>100 Stop: 10/17/23 09:10 Levalbuterol HCl (Levalbuterol 1.25 Mg/3 Ml Neb) 1.25 mg NEB Q4H PRN; Protocol PRN Reason: Shortness Of Breath Or Wheezing Stop: 10/14/23 05:38 Last Admin: 09/21/23 04:08 Dose: 1.25 mg Levalbuterol HCl (Levalbuterol 1.25 Mg/3 Ml Neb) 1.25 mg NEB Q6R PRN PRN Reason: Wheezing Stop: 10/14/23 05:59 Losartan Potassium (Losartan Potassium 50 Mg Tab) 50 mg PO QAM [facility] Stop: 10/14/23 08:59 Last Admin: 09/21/23 08:58 Dose: 50 mg Meloxicam (Meloxicam 7.5 Mg Tab) 7.5 mg PO QAM [facility] Stop: 10/12/23 08:59 Last Admin: 09/13/23 08:37 Dose: 7.5 mg Metoprolol Succinate (Metoprolol Succ 25mg Ext Rel Tab) 25 mg PO QAM [facility] Stop: 10/12/23 09:29 Last Admin: 09/21/23 08:57 Dose: 25 mg Mometasone Furoate (Mometasone Furoate 17 Gm Inhaler) 2 sprays NA DAILY [facility] Stop: 10/15/23 08:59 Last Admin: 09/21/23 08:55 Dose: 2 sprays Montelukast Sodium (Montelukast Sodium 10 Mg Tablet) 10 mg PO QAM [facility] Stop: 10/12/23 08:59 Last Admin: 09/21/23 08:58 Dose: 10 mg Morphine Sulfate (Morphine Sulfate 4 Mg/Ml 1 Ml Carp\Vial) 4 mg IV Q4H PRN PRN Reason: Pain Stop: 09/26/23 03:37 Last Admin: 09/12/23 17:18 Dose: 4 mg Multi-Ingredient Mouthwash/Gargle (First - Mouthwash Blm 119 Ml) 5 ml PO QID [facility] Stop: 10/19/23 12:59 Last Admin: 09/21/23 21:04 Dose: 5 ml Multivitamins (Multivitamin Tab) 1 tab PO DAILY [facility] Stop: 10/12/23 08:59 Last Admin: 09/21/23 08:57 Dose: 1 tab Oxycodone HCl (Oxycodone Hcl Ir 5 Mg Tab (Immediate Release)) 5 mg PO QID PRN PRN Reason: Pain Stop: 09/26/23 02:46 Last Admin: 09/21/23 14:49 Dose: 5 mg Potassium Chloride (Potassium Chloride 10 Meq Tabcr) 10 meq PO BID [facility] Stop: 10/18/23 20:59 Last Admin: 09/21/23 21:05 Dose: 10 meq Prednisone (Prednisone 10 Mg Tablet) 10 mg PO QAM [facility] Stop: 10/15/23 08:59 Last Admin: 09/21/23 08:58 Dose: 10 mg Umeclidinium [place] (Umeclidinium [place] 62.5mcg/Blister 7 Puffs/Inhaler) 1 puffs INH DAILY [facility] Stop: 10/12/23 08:59 Last Admin: 09/21/23 08:55 Dose: 1 puffs
[2023-09-22] MEDS: ADVANCED PROBIOTIC 625 MG CAPSULE PO SCH (10:10)
[2023-09-23 06:10] LABS: Hematocrit (blood only) 33.6 % (42.0-52.0); Hemoglobin 11.2 g/dl (14.0-18.0); Mean Corpuscular Hemoglobin 30.9 pg (25.0-34.0); Mean Corpuscular Hgb Conc 33.3 g/dL (32.0-36.0); Mean Corpuscular Volume 92.8 fL (80.0-100.0); Mean Platelet Volume 10.7 fL (9.4-12.4); Platelet Count 587 K/uL (130-400); RDW Coefficient of Variation 14.9 % (11.5-14.5); RDW Standard Deviation 51.1 fL (36.4-46.3); Red Blood Count 3.62 M/uL (4.70-6.10); White Blood Count 14.56 K/ul (4.8-10.8)
[2023-09-23 06:28] LABS: BUN Creatinine Ratio 43.4 (10-20); Calcium 10.1 mg/dl (8.6-10.3); Creatinine Clr Calc Pharmacy 73.8 ml/min; Est GFR (African American) 76.4 ml/min; Magnesium 2.1 mg/dl (1.7-2.4); Phosphorus 2.7 mg/dl (2.5-4.9); Potassium 3.8 mmol/L (3.5-5.1)
--- NOTE | 2023-09-23 07:51 | Hospitalist Progress Note ---
Date of Service September 23, 2023 Assessment & Plan (1) Severe sepsis: Plan: Per previous hospitalist w/ addendum 68 yo M with history significant for mild , hypertension, bronchial asthma/allergic eosinophilia/allergic bronchopulmonary aspergillosis with elevated IgE on chronic steroid Rx, JOANN status post surgery (CPAP intolerance), CIDP outpatient IVIG infusions, past tobacco abuse who presented with worsening chronic hand pain/back pain, weakness, shortness of breath. 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 EF 60 to 65%. Borderline concentric LVH. Grade 1 diastolic function. Attic valve is moderately calcified and possibly bicuspid. Moderate valvular aortic stenosis. Moderate mitral annular calcification. Mild mitral and tricuspid regurgitation. --CT chest:Bilateral pulmonary infiltrates, most pronounced in the right upper lobe. This likely represent bilateral pneumonia. 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 Old fracture of the scaphoid with the proximal fracture fragment nonvisualized. ---Serological test for histoplasma, fungitell pending --Procalcitonin 11.9 --Urine culture no growth --ANASTASIIA on 09/18/23: no vegetation to suggest endocarditis with limitations of calcified aortic valve. --Continue on cefepime, Flagyl, also on doxycycline>> cefazolin, Flagyl, Doxy>>Cefazolin Appreciate infectious disease, cardiology and pulmonary input Aspiration precautions Discontinue IV fluids Peripheral smear consistent with infectious process Will likely need repeat echocardiogram in 1 month Discussed with ID on 09/19/2023. Advised to discontinue doxycycline, Flagyl. Advised to continue cefazolin and requested Ortho to reevaluate Discussed with orthopedics on 09/19/23: Does not think that it is osteomyelitis. Likely severe posttraumatic arthritis. Clinically does not believe to be infected given dry tap, no effusion. No intervention, surgery recommended. Discussed with ID Dr. Lynne on 09/20/2023. Advised to complete 6-week course of IV cefazolin from first negative blood culture. Patient will require repeat echo to reevaluate for any vegetation given limited views due to calcified aortic valve per cardiology Will need rehab placement as able SUSAN Cr 1.6 on 09/20 down to 1.13 Nephrology consulted and following Collins removed on 09/21 Urine cultx - pending avoid nephrotoxic agents Acute metabolic encephalopathy Likely secondary to above Mental status back to baseline Monitor Suspected L Wrist osteoarthritis--less likely per orthopedics S/P left wrist arthrocentesis on 09/16/23 synovial fluid Cx: MSSA -Left Wrist MRI: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 Old fracture of the scaphoid with the proximal fracture fragment nonvisualized. Appreciate orthopedics input Continue antibiotics as above Will benefit from following with orthopedics as outpatient on discharge Hypokalemia Replete electrolytes as needed Monitor Chronic Lower back Pain Likely due to spinal stenosis --Lumbar MR noted multilevel degenerative changes with severe canal stenosis and severe bilateral neuroforaminal stenosis --Hand CT Right noted severe narrowing of radiocarpal joint and intercarpal joints with subchondral erosions, partial collapse of wrist joint. Less likely septic joint --Hand CT left noted severe narrowing with mod sclerosis, subchondral cyst in radiocarpal and Intercarpal joints. Differential considerations include septic joint vs gout vs erosive OA -- Appreciate Orthopedics Input --Cautious use of pain medications H/O Bronchial asthma/allergic eosinophilia/allergic bronchopulmonary aspergillosis with elevated IgE on chronic steroid Rx Continue prednisone, montelukast, Trelegy Continue Nebs CIDP receiving outpatient IVIG infusions Outpatient follow up Hypertension Losartan on hold for susan Resume HCTZ as able Monitor JOANN S/P surgery H/O CPAP intolerance New onset anemia Hemoptysis likely due to Pneumonia FOBT done at the ER was reported to be negative Also dilutional contributing Monitor CBC Past tobacco abuse per records DVT Px: Lovenox SQ Code Status Full code Disposition Rehab as able Admission and Anticipated Discharge Date Admission Date: September 12, 2023 Subjective Patient is seen and examined at bedside Sitting in chair during my encounter Continues to have left wrist pain/ edema and chronic back pain Previous provider discussed with infectious disease cough resolved Denies any chest pain, dyspnea, dizziness, nausea, vomiting, abdominal pain Cr elevated yesterday at 1.6 on 09/20 - nephrology following. Cr trending down WBC still elevated, slowly trending down, now at 14.5K Left wrist hand continues to be significantly edematous despite elevation and ice, will obtain doppler to r/o dvt Review of Systems Review of Systems: All systems reviewed & are unremarkable except as noted in Subjective Physical Exam 2 Physical Exam: General Appearance:Moderately built and nourished, no apparent distress Head: normocephalic, Atraumatic Eyes: normal inspection, EOMI Neck: supple Respiratory/Chest:Normal breath sounds, CTA, No accessory muscle use Cardiovascular: S1, S2, + murmur Abdomen/GI:Soft, Non tender, Bowel sounds present Extremities/Musculoskeletal:normal inspection, 1+ edema LE b/l, + L hand edema Neurologic/Psych:AAOX3, answers appropriately, no facial asymmetry, moves extremities Skin: normal color, warm Results & Data Results & Data Vital Signs (Past 12 Hours) Vital Signs Temp Pulse Pulse Resp BP Pulse Ox O2 Del Method 09/23/23 07:28 100 H 09/23/23 03:55 36.3 C L 108 H 22 135/78 93 Room Air 09/22/23 23:01 36.6 C 104 H 18 121/75 95 Room Air 09/22/23 22:00 99 H Laboratory Results 09/23/23 Range/Units 05:01 WBC 14.56 H (4.8-10.8) K/ul RBC 3.62 L (4.70-6.10) M/uL Hgb 11.2 L (14.0-18.0) g/dl Hct 33.6 L (42.0-52.0) % MCV 92.8 (80.0-100.0) fL MCH 30.9 (25.0-34.0) pg MCHC 33.3 (32.0-36.0) g/dL RDW Std Deviation 51.1 H (36.4-46.3) fL RDW Coeff of Karishma 14.9 H (11.5-14.5) % Plt Count 587 H (130-400) K/uL MPV 10.7 (9.4-12.4) fL Sodium 131 L (136-145) mmol/L Potassium 3.8 (3.5-5.1) mmol/L Chloride 100 (98-107) mmol/L Carbon Dioxide 22 (21-32) mmol/L Anion Gap 9 (3-11) BUN 49 H (6-23) mg/dl Creatinine 1.13 D (0.6-1.4) mg/dl Est Cr Clr Drug Dosing 73.8 ml/min Est GFR ( Amer) 76.4 ml/min Est GFR (Non-Af Amer) 66.0 ml/min BUN/Creatinine Ratio 43.4 H (10-20) Glucose 102 H (70-99(Fasting)) mg/dl Calcium 10.1 (8.6-10.3) mg/dl Phosphorus 2.7 (2.5-4.9) mg/dl Magnesium 2.1 (1.7-2.4) mg/dl Medications Administered Current Inpatient Medications Acetaminophen (Acetaminophen 500 Mg Tab) 500 mg PO Q6H PRN PRN Reason: fever/pain Stop: 10/12/23 02:46 Last Admin: 09/19/23 06:32 Dose: 500 mg Atorvastatin Calcium (Atorvastatin 10 Mg Tab) 10 mg PO QAM [facility] Stop: 10/13/23 08:59 Last Admin: 09/22/23 09:17 Dose: 10 mg Azelastine HCl (Azelastine Hcl 0.1% Nasal 200 Sprays/27,400 Mcg Btl) 1 sprays NA DAILY [facility] Stop: 10/12/23 08:59 Last Admin: 09/22/23 09:13 Dose: 1 sprays Benzonatate (Benzonatate 100 Mg Capsule) 100 mg PO TID PRN PRN Reason: Cough Stop: 10/14/23 02:10 Cyclobenzaprine HCl (Cyclobenzaprine Hcl 5 Mg Tab) 5 mg PO BID PRN PRN Reason: Muscle Spasm Stop: 10/12/23 08:11 Last Admin: 09/23/23 04:41 Dose: 5 mg Duloxetine HCl (Duloxetine Hcl 60 Mg Cap) 60 mg PO DAILY [facility] Stop: 10/12/23 08:59 Last Admin: 09/22/23 09:17 Dose: 60 mg Enoxaparin Sodium (Enoxaparin Inj 40 Mg/0.4 Ml Syr) 40 mg SQ QAM [facility] Stop: 10/12/23 08:59 Last Admin: 09/22/23 09:18 Dose: 40 mg Fluticasone/Vilanterol (Fluticasone/Vilanterol 200/25mcg 14 Puffs/Inhaler) 1 puffs INH DAILY [facility] Stop: 10/12/23 08:59 Last Admin: 09/22/23 09:14 Dose: 1 puffs Gabapentin (Gabapentin 300 Mg Cap) 300 mg PO HS [facility] Stop: 10/12/23 20:59 Last Admin: 09/22/23 20:22 Dose: 300 mg Haloperidol Lactate (Haloperidol Lactate 5 Mg/Ml 1 Ml Vial) 2 mg IM Q2H PRN PRN Reason: Agitation Stop: 10/14/23 04:22 Hydrochlorothiazide (Hydrochlorothiazide 25 Mg Tab) 25 mg PO QAM [facility] Stop: 10/21/23 08:59 Last Admin: 09/21/23 08:57 Dose: 25 mg Promethazine HCl 12.5 mg/ (Sodium Chloride) 50.5 mls @ 202 mls/hr IV Q6H PRN PRN Reason: Nausea And Vomiting Stop: 10/12/23 03:37 Last Infusion: 09/14/23 01:00 Dose: Infused Cefazolin Sodium (Ancef 2000mg) 2,000 mg in 15 mls @ 3.75 mls/min IV Q8H [facility] Stop: 10/29/23 23:59 Last Admin: 09/23/23 03:43 Dose: 3.75 mls/min Ipratropium [place] (Ipratropium [place] Neb Soln 0.02% 0.5mg/2.5ml Vial) 0.5 mg INH Q6R PRN PRN Reason: Wheezing Stop: 10/17/23 10:26 Last Admin: 09/21/23 04:08 Dose: 0.5 mg Labetalol HCl (Labetalol Hcl Iv 5 Mg/Ml 20ml) 10 mg IV Q6H PRN PRN Reason: Hypertension SBP>180orDBP>100 Stop: 10/17/23 09:10 Lactobacillus Acidophilus (Advanced Probiotic 625 Mg Capsule) 1,250 mg PO DAILY [facility] Stop: 10/22/23 09:44 Last Admin: 09/22/23 10:10 Dose: 1,250 mg Levalbuterol HCl (Levalbuterol 1.25 Mg/3 Ml Neb) 1.25 mg NEB Q4H PRN; Protocol PRN Reason: Shortness Of Breath Or Wheezing Stop: 10/14/23 05:38 Last Admin: 09/21/23 04:08 Dose: 1.25 mg Levalbuterol HCl (Levalbuterol 1.25 Mg/3 Ml Neb) 1.25 mg NEB Q6R PRN PRN Reason: Wheezing Stop: 10/14/23 05:59 Losartan Potassium (Losartan Potassium 50 Mg Tab) 50 mg PO QAM [facility] Stop: 10/14/23 08:59 Last Admin: 09/21/23 08:58 Dose: 50 mg Meloxicam (Meloxicam 7.5 Mg Tab) [facility] [place] [place] [facility] [place]: 10/12/23 08:59 Last Admin: 09/13/23 08:37 Dose: 7.5 mg Metoprolol Succinate (Metoprolol Succ 25mg Ext Rel Tab) [facility] [place] [place]: 10/12/23 09:29 Last Admin: 09/22/23 09:17 Dose: 25 mg Mometasone Furoate (Mometasone Furoate 17 Gm Inhaler) 2 sprays NA DAILY [facility] Stop: 10/15/23 08:59 Last Admin: 09/22/23 09:14 Dose: 2 sprays Montelukast Sodium (Montelukast Sodium 10 Mg Tablet) 10 mg PO QAM [facility] Stop: 10/12/23 08:59 Last Admin: 09/22/23 09:16 Dose: 10 mg Morphine Sulfate (Morphine Sulfate 4 Mg/Ml 1 Ml Carp\Vial) 4 mg IV Q4H PRN PRN Reason: Pain Stop: 09/26/23 03:37 Last Admin: 09/12/23 17:18 Dose: 4 mg Multi-Ingredient Mouthwash/Gargle (First - Mouthwash Blm 119 Ml) 5 ml PO QID [facility] Stop: 10/19/23 12:59 Last Admin: 09/22/23 20:22 Dose: 5 ml Multivitamins (Multivitamin Tab) 1 tab PO DAILY [facility] Stop: 10/12/23 08:59 Last Admin: 09/22/23 09:16 Dose: 1 tab Oxycodone HCl (Oxycodone Hcl Ir 5 Mg Tab (Immediate Release)) 5 mg PO QID PRN PRN Reason: Pain Stop: 09/26/23 02:46 Last Admin: 09/23/23 04:41 Dose: 5 mg Potassium Chloride (Potassium Chloride 10 Meq Tabcr) 10 meq PO BID [facility] Stop: 10/18/23 20:59 Last Admin: 09/22/23 20:23 Dose: 10 meq Prednisone (Prednisone 10 Mg Tablet) 10 mg PO QAM [facility] Stop: 10/15/23 08:59 Last Admin: 09/22/23 09:16 Dose: 10 mg Umeclidinium [place] (Umeclidinium [place] 62.5mcg/Blister 7 Puffs/Inhaler) 1 puffs INH DAILY [facility] Stop: 10/12/23 08:59 Last Admin: 09/22/23 09:14 Dose: 1 puffs
--- NOTE | 2023-09-23 18:37 | Ultrasound Report ---
LEFT UPPER EXTREMITY VENOUS DOPPLER HISTORY: Left upper extremity edema, r/o DVT COMPARISON STUDY: Left wrist MRI 09/18/2023. FINDINGS: The left internal jugular vein is patent. There is normal flow within the left subclavian v ein. There is normal flow and compressibility within the left axillary, basilic, brachial, radial, ul tj, and visualized cephalic veins. Soft tissue edema within the left hand and wrist. There is also e yoselyn surrounding the left wrist tendon. IMPRESSION: No DVT within the left upper extremity. ACT 112: Negative or not required by law. Electronically signed by: Parish Arias M.D. 09/23/2023 6:35 PM
[2023-09-24 06:08] LABS: Hemoglobin 10.9 g/dl (14.0-18.0); Mean Corpuscular Hemoglobin 30.7 pg (25.0-34.0); Mean Platelet Volume 10.5 fL (9.4-12.4); Platelet Count 589 K/uL (130-400); RDW Coefficient of Variation 14.6 % (11.5-14.5); Red Blood Count 3.55 M/uL (4.70-6.10); White Blood Count 12.23 K/ul (4.8-10.8)
[2023-09-24 06:35] LABS: BUN Creatinine Ratio 38.9 (10-20); Creatinine Clr Calc Pharmacy 89.1 ml/min; Est GFR (African American) 100.6 ml/min; Est GFR (Non-African American) 86.8 ml/min; Phosphorus 2.6 mg/dl (2.5-4.9)
--- NOTE | 2023-09-24 07:52 | Hospitalist Progress Note ---
Date of Service September 24, 2023 Assessment & Plan (1) Severe sepsis: Plan: Per previous hospitalist w/ addendum 68 yo M with history significant for mild , hypertension, bronchial asthma/allergic eosinophilia/allergic bronchopulmonary aspergillosis with elevated IgE on chronic steroid Rx, JOANN status post surgery (CPAP intolerance), CIDP outpatient IVIG infusions, past tobacco abuse who presented with worsening chronic hand pain/back pain, weakness, shortness of breath. 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 EF 60 to 65%. Borderline concentric LVH. Grade 1 diastolic function. Attic valve is moderately calcified and possibly bicuspid. Moderate valvular aortic stenosis. Moderate mitral annular calcification. Mild mitral and tricuspid regurgitation. --CT chest:Bilateral pulmonary infiltrates, most pronounced in the right upper lobe. This likely represent bilateral pneumonia. 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 Old fracture of the scaphoid with the proximal fracture fragment nonvisualized. ---Serological test for histoplasma, fungitell pending --Procalcitonin 11.9 --Urine culture no growth --ANASTASIIA on 09/18/23: no vegetation to suggest endocarditis with limitations of calcified aortic valve. --Continue on cefepime, Flagyl, also on doxycycline>> cefazolin, Flagyl, Doxy>>Cefazolin Appreciate infectious disease, cardiology and pulmonary input Aspiration precautions Discontinue IV fluids Peripheral smear consistent with infectious process Will likely need repeat echocardiogram in 1 month Discussed with ID on 09/19/2023. Advised to discontinue doxycycline, Flagyl. Advised to continue cefazolin and requested Ortho to reevaluate Discussed with orthopedics on 09/19/23: Does not think that it is osteomyelitis. Likely severe posttraumatic arthritis. Clinically does not believe to be infected given dry tap, no effusion. No intervention, surgery recommended. Discussed with ID Dr. Lynne on 09/20/2023. Advised to complete 6-week course of IV cefazolin from first negative blood culture. Patient will require repeat echo to reevaluate for any vegetation given limited views due to calcified aortic valve per cardiology Will need rehab placement as able SUSAN Cr 1.6 on 09/20 down to 0.9 Nephrology consulted and following Collins removed on 09/21 Urine cultx - negat. 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 Old fracture of the scaphoid with the proximal fracture fragment nonvisualized. Appreciate orthopedics input Continue antibiotics as above Will benefit from following with orthopedics as outpatient on discharge Hypokalemia Replete electrolytes as needed Monitor Chronic Lower back Pain Likely due to spinal stenosis --Lumbar MR noted multilevel degenerative changes with severe canal stenosis and severe bilateral neuroforaminal stenosis --Hand CT Right noted severe narrowing of radiocarpal joint and intercarpal joints with subchondral erosions, partial collapse of wrist joint. Less likely septic joint --Hand CT left noted severe narrowing with mod sclerosis, subchondral cyst in radiocarpal and Intercarpal joints. Differential considerations include septic joint vs gout vs erosive OA -- Appreciate Orthopedics Input --Cautious use of pain medications H/O Bronchial asthma/allergic eosinophilia/allergic bronchopulmonary aspergillosis with elevated IgE on chronic steroid Rx Continue prednisone, montelukast, Trelegy Continue Nebs CIDP receiving outpatient IVIG infusions Outpatient follow up Hypertension Losartan on hold for susan HCTZ on hold Monitor JOANN S/P surgery H/O CPAP intolerance New onset anemia Hemoptysis likely due to Pneumonia FOBT done at the ER was reported to be negative Also dilutional contributing Monitor CBC Past tobacco abuse per records DVT Px: Lovenox SQ Code Status Full code Disposition Rehab as able Admission and Anticipated Discharge Date Admission Date: September 12, 2023 Subjective Patient is seen and examined at bedside Sitting in chair during my encounter Continues to have left wrist pain/ edema and chronic back pain Previous provider discussed with infectious disease cough resolved Denies any chest pain, dyspnea, dizziness, nausea, vomiting, abdominal pain Cr elevated 1.6 on 09/20 - nephrology following. Cr trending down, normalized now WBC trending down, now at 12K Left wrist hand continues to be edematous despite elevation and ice, obtained doppler - no dvt Review of Systems Review of Systems: All systems reviewed & are unremarkable except as noted in Subjective Physical Exam Physical Exam: General Appearance:Moderately built and nourished, no apparent distress Head: normocephalic, Atraumatic Eyes: normal inspection, EOMI Neck: supple Respiratory/Chest:Normal breath sounds, CTA, No accessory muscle use Cardiovascular: S1, S2, + murmur Abdomen/GI:Soft, Non tender, Bowel sounds present Extremities/Musculoskeletal:normal inspection, 1+ edema LE b/l, + L hand edema (improved) Neurologic/Psych:AAOX3, answers appropriately, no facial asymmetry, moves extremities Skin: normal color, warm Results & Data Results & Data Vital Signs (Past 12 Hours) Vital Signs Temp Pulse Pulse Resp BP Pulse Ox O2 Del Method 09/24/23 04:02 36.3 C L 103 H 17 151/97 H 92 Room Air 09/23/23 23:55 107 H 09/23/23 23:17 36.6 C 105 H 17 145/84 H 94 Room Air 09/23/23 22:47 Room Air Laboratory Results 09/24/23 Range/Units 05:20 WBC 12.23 H (4.8-10.8) K/ul RBC 3.55 L (4.70-6.10) M/uL Hgb 10.9 L (14.0-18.0) g/dl Hct 33.0 L (42.0-52.0) % MCV 93.0 (80.0-100.0) fL MCH 30.7 (25.0-34.0) pg MCHC 33.0 (32.0-36.0) g/dL RDW Std Deviation 50.0 H (36.4-46.3) fL RDW Coeff of Karishma 14.6 H (11.5-14.5) % Plt Count 589 H (130-400) K/uL MPV 10.5 (9.4-12.4) fL Sodium 134 L (136-145) mmol/L Potassium 4.0 (3.5-5.1) mmol/L Chloride 103 (98-107) mmol/L Carbon Dioxide 22 (21-32) mmol/L Anion Gap 9 (3-11) BUN 35 H (6-23) mg/dl Creatinine 0.90 (0.6-1.4) mg/dl Est Cr Clr Drug Dosing 89.1 ml/min Est GFR ( Amer) 100.6 ml/min Est GFR (Non-Af Amer) 86.8 ml/min BUN/Creatinine Ratio 38.9 H (10-20) Glucose 98 (70-99(Fasting)) mg/dl Calcium 10.0 (8.6-10.3) mg/dl Phosphorus 2.6 (2.5-4.9) mg/dl Magnesium 2.0 (1.7-2.4) mg/dl Medications Administered Current Inpatient Medications Acetaminophen (Acetaminophen 500 Mg Tab) 500 mg PO Q6H PRN PRN Reason: fever/pain Stop: 10/12/23 02:46 Last Admin: 09/24/23 03:18 Dose: 500 mg Atorvastatin Calcium (Atorvastatin 10 Mg Tab) 10 mg PO QAM [facility] Stop: 10/13/23 08:59 Last Admin: 09/23/23 09:39 Dose: 10 mg Azelastine HCl (Azelastine Hcl 0.1% Nasal 200 Sprays/27,400 Mcg Btl) 1 sprays NA DAILY [facility] Stop: 10/12/23 08:59 Last Admin: 09/23/23 09:37 Dose: 1 sprays Benzonatate (Benzonatate 100 Mg Capsule) 100 mg PO TID PRN PRN Reason: Cough Stop: 10/14/23 02:10 Cyclobenzaprine HCl (Cyclobenzaprine Hcl 5 Mg Tab) 5 mg PO BID PRN PRN Reason: Muscle Spasm Stop: 10/12/23 08:11 Last Admin: 09/23/23 20:04 Dose: 5 mg Duloxetine HCl (Duloxetine Hcl 60 Mg Cap) 60 mg PO DAILY [facility] Stop: 10/12/23 08:59 Last Admin: 09/23/23 11:11 Dose: 60 mg Enoxaparin Sodium (Enoxaparin Inj 40 Mg/0.4 Ml Syr) 40 mg SQ QAM [facility] Stop: 10/12/23 08:59 Last Admin: 09/23/23 09:37 Dose: 40 mg Fluticasone/Vilanterol (Fluticasone/Vilanterol 200/25mcg 14 Puffs/Inhaler) 1 puffs INH DAILY [facility] Stop: 10/12/23 08:59 Last Admin: 09/23/23 09:36 Dose: 1 puffs Gabapentin (Gabapentin 300 Mg Cap) 300 mg PO HS [facility] Stop: 10/12/23 20:59 Last Admin: 09/23/23 21:29 Dose: 300 mg Haloperidol Lactate (Haloperidol Lactate 5 Mg/Ml 1 Ml Vial) 2 mg IM Q2H PRN PRN Reason: Agitation Stop: 10/14/23 04:22 Hydrochlorothiazide (Hydrochlorothiazide 25 Mg Tab) 25 mg PO QAM [facility] Stop: 10/21/23 08:59 Last Admin: 09/21/23 08:57 Dose: 25 mg Promethazine HCl 12.5 mg/ (Sodium Chloride) 50.5 mls @ 202 mls/hr IV Q6H PRN PRN Reason: Nausea And Vomiting Stop: 10/12/23 03:37 Last Infusion: 09/14/23 01:00 Dose: Infused Cefazolin Sodium (Ancef 2000mg) 2,000 mg in 15 mls @ 3.75 mls/min IV Q8H [facility] Stop: 10/29/23 23:59 Last Admin: 09/24/23 03:18 Dose: 3.75 mls/min Ipratropium [place] (Ipratropium [place] Neb Soln 0.02% 0.5mg/2.5ml Vial) 0.5 mg INH Q6R PRN PRN Reason: Wheezing Stop: 10/17/23 10:26 Last Admin: 09/21/23 04:08 Dose: 0.5 mg Labetalol HCl (Labetalol Hcl Iv 5 Mg/Ml 20ml) 10 mg IV Q6H PRN PRN Reason: Hypertension SBP>180orDBP>100 Stop: 10/17/23 09:10 Lactobacillus Acidophilus (Advanced Probiotic 625 Mg Capsule) 1,250 mg PO DAILY [facility] Stop: 10/22/23 09:44 Last Admin: 09/23/23 09:40 Dose: 1,250 mg Levalbuterol HCl (Levalbuterol 1.25 Mg/3 Ml Neb) 1.25 mg NEB Q4H PRN; Protocol PRN Reason: Shortness Of Breath Or Wheezing Stop: 10/14/23 05:38 Last Admin: 09/21/23 04:08 Dose: 1.25 mg Levalbuterol HCl (Levalbuterol 1.25 Mg/3 Ml Neb) 1.25 mg NEB Q6R PRN PRN Reason: Wheezing Stop: 10/14/23 05:59 Losartan Potassium (Losartan Potassium 50 Mg Tab) 50 mg PO QAM [facility] Stop: 10/14/23 08:59 Last Admin: 09/21/23 08:58 Dose: 50 mg Meloxicam (Meloxicam 7.5 Mg Tab) [facility] [place] Stop: 10/12/23 08:59 Last Admin: 09/13/23 08:37 Dose: 7.5 mg Metoprolol Succinate (Metoprolol Succ 25mg Ext Rel Tab) [facility] [place] Stop: 10/12/23 09:29 Last Admin: 09/23/23 09:39 Dose: 25 mg Mometasone Furoate (Mometasone Furoate 17 Gm Inhaler) 2 sprays NA DAILY [facility] Stop: 10/15/23 08:59 Last Admin: 09/23/23 09:36 Dose: 2 sprays Montelukast Sodium (Montelukast Sodium 10 Mg Tablet) 10 mg PO QAM [facility] Stop: 10/12/23 08:59 Last Admin: 09/23/23 09:39 Dose: 10 mg Morphine Sulfate (Morphine Sulfate 4 Mg/Ml 1 Ml Carp\Vial) 4 mg IV Q4H PRN PRN Reason: Pain Stop: 09/26/23 03:37 Last Admin: 09/12/23 17:18 Dose: 4 mg Multi-Ingredient Mouthwash/Gargle (First - Mouthwash Blm 119 Ml) 5 ml PO QID [facility] Stop: 10/19/23 12:59 Last Admin: 09/23/23 21:28 Dose: 5 ml Multivitamins (Multivitamin Tab) 1 tab PO DAILY [facility] Stop: 10/12/23 08:59 Last Admin: 09/23/23 09:39 Dose: 1 tab Oxycodone HCl (Oxycodone Hcl Ir 5 Mg Tab (Immediate Release)) 5 mg PO QID PRN PRN Reason: Pain Stop: 09/26/23 02:46 Last Admin: 09/23/23 04:41 Dose: 5 mg Potassium Chloride (Potassium Chloride 10 Meq Tabcr) 10 meq PO BID [facility] Stop: 10/18/23 20:59 Last Admin: 09/23/23 21:29 Dose: 10 meq Prednisone (Prednisone 10 Mg Tablet) 10 mg PO QAM [facility] Stop: 10/15/23 08:59 Last Admin: 09/23/23 09:39 Dose: 10 mg Umeclidinium [place] (Umeclidinium [place] 62.5mcg/Blister 7 Puffs/Inhaler) 1 puffs INH DAILY [facility] Stop: 10/12/23 08:59 Last Admin: 09/23/23 09:36 Dose: 1 puffs
--- NOTE | 2023-09-24 10:48 | Nephrology Progress Note ---
Date of Service September 24, 2023 Assessment & Plan (1) SUSAN (acute kidney injury): Plan: now resolved nonoliguric improving slowly but abrupt onset stage 1 SUSAN in the setting of therapy for MSSA bacteremia and prior to SUSAN sustained diuretic therapy. complicated by mild hyponatremia and drop in bicarbonate. suspect he was overdiuresed > ischemic ATN. not oliguric but UOP has dropped off w/ him being off of diuretics. baseline creatinine 0.9-1.0 and now back to baseline UA notable for trace ketones, for trace blood, 1+ protein, very concentrated urine, uric acid crystals, 1+ bacteria >> concentrated urine w/ low urine sodium and w/ crystals c/w prerenal process -held hctz, losartan (had both of those 09/20 am); held meloxicam >>cont to hold diuretic and avoid nsaid but could consider resuming losartan at lower 25 mg daily dose as soon as tomorrow depending on needs -encourage compression to manage LE edema -cont to avoid nsaids >>encourage po intake -remove carr; urine cx after removal negative -no indication to repeat renal imaging yet -daily bmp >>given worsening back stiffening/ongoing pain and MRI findings > doubt occult infection nidus but may be worth having neuro/spine ortho eval severe stenosis if not already compared to prior/recent studies Will sign off; pls call if ?;no specific neph f/u or d/c instructions other than to minimize NSAID use after d/c and to manage edema w/ compression > diuretics, lest renal function and fluid status both worsen again Admission and Anticipated Discharge Date Admission Date: September 12, 2023 Subjective c/o poor po b/c mouth sore d/t using inhalers different from home ones. feels edema slightly improved but overall persistent. no new/worrisome voiding sx or sob. Review of Systems 2 Review of Systems: All systems reviewed & are unremarkable except as noted in Subjective Physical Exam 2 Constitutional: well developed, well nourished, + physical limitations and cooperative; no acute distress Eyes: EOM intact bilaterally ENMT: Ears: no external ear abnormality Nose: no external nose abnormality Mouth: + dry oral mucous membranes Neck: no nuchal rigidity Respiratory: normal respiratory effort Auscultation: + diminished lung sounds Cardiovascular: Rate/Rhythm: regular rate and regular rhythm Extremities: + edema (2+ pitting bilateral lower extremity edema to the knees and 2++ pedal ) Gastrointestinal (Abdomen): Inspection/Auscultation: normal bowel sounds P ercussion/Palpation: abdomen soft; abdomen nontender Musculoskeletal: Extremities: strength 5/5 throughout Skin: no rashes, warm and dry Psychiatric: Orientation: alert and oriented x 3 Speech: normal rate/rhythm/volume of speech Affect: euthymic affect Results & Data Vital Signs (Past 12 Hours) Vital Signs Temp Pulse Pulse Resp BP Pulse Ox O2 Del Method 09/24/23 07:49 101 H 09/24/23 07:49 Room Air 09/24/23 07:10 36.3 C L 109 H 20 136/89 93 Room Air 09/24/23 04:02 36.3 C L 103 H 17 151/97 H 92 Room Air 09/23/23 23:55 107 H 09/23/23 23:17 36.6 C 105 H 17 145/84 H 94 Room Air 09/23/23 22:47 Room Air Laboratory Results 09/24/23 05:20 09/24/23 05:20
[2023-09-25 06:23] LABS: Hematocrit (blood only) 32.8 % (42.0-52.0); Hemoglobin 10.9 g/dl (14.0-18.0); Mean Corpuscular Hemoglobin 31.1 pg (25.0-34.0); Mean Corpuscular Hgb Conc 33.2 g/dL (32.0-36.0); Mean Corpuscular Volume 93.4 fL (80.0-100.0); Mean Platelet Volume 10.2 fL (9.4-12.4); Platelet Count 598 K/uL (130-400); RDW Coefficient of Variation 14.6 % (11.5-14.5); RDW Standard Deviation 50.3 fL (36.4-46.3); Red Blood Count 3.51 M/uL (4.70-6.10); White Blood Count 14.09 K/ul (4.8-10.8)
[2023-09-25 06:48] LABS: BUN Creatinine Ratio 29.1 (10-20); Creatinine Clr Calc Pharmacy 105.6 ml/min; Est GFR (African American) 106.2 ml/min; Est GFR (Non-African American) 91.6 ml/min; Magnesium 1.9 mg/dl (1.7-2.4); Potassium 4.2 mmol/L (3.5-5.1)
[2023-09-25] MEDS: FLUTICASONE/SALMETEROL (ADVAIR) 500/50 INH 14 PUFF INH SCH (08:49)
[2023-09-25] MEDS: TIOTROPIUM BROMIDE 5 PUFF/90 MCG INH INH SCH (08:51)
--- NOTE | 2023-09-25 12:55 | Hospitalist Progress Note ---
Date of Service September 25, 2023 Assessment & Plan (1) Severe sepsis: Plan: Per previous hospitalist w/ addendum 68 yo M with history significant for mild , hypertension, bronchial asthma/allergic eosinophilia/allergic bronchopulmonary aspergillosis with elevated IgE on chronic steroid Rx, JOANN status post surgery (CPAP intolerance), CIDP outpatient IVIG infusions, past tobacco abuse who presented with worsening chronic hand pain/back pain, weakness, shortness of breath. 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 EF 60 to 65%. Borderline concentric LVH. Grade 1 diastolic function. Attic valve is moderately calcified and possibly bicuspid. Moderate valvular aortic stenosis. Moderate mitral annular calcification. Mild mitral and tricuspid regurgitation. --CT chest:Bilateral pulmonary infiltrates, most pronounced in the right upper lobe. This likely represent bilateral pneumonia. 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 Old fracture of the scaphoid with the proximal fracture fragment nonvisualized. ---Serological test for histoplasma, fungitell pending --Procalcitonin 11.9 --Urine culture no growth --ANASTASIIA on 09/18/23: no vegetation to suggest endocarditis with limitations of calcified aortic valve. --Continue on cefepime, Flagyl, also on doxycycline>> cefazolin, Flagyl, Doxy>>Cefazolin Appreciate infectious disease, cardiology and pulmonary input Aspiration precautions Discontinue IV fluids Peripheral smear consistent with infectious process Will likely need repeat echocardiogram in 1 month Discussed with ID on 09/19/2023. Advised to discontinue doxycycline, Flagyl. Advised to continue cefazolin and requested Ortho to reevaluate Discussed with orthopedics on 09/19/23: Does not think that it is osteomyelitis. Likely severe posttraumatic arthritis. Clinically does not believe to be infected given dry tap, no effusion. No intervention, surgery recommended. Discussed with ID Dr. Lynne on 09/20/2023. Advised to complete 6-week course of IV cefazolin from first negative blood culture. Patient will require repeat echo to reevaluate for any vegetation given limited views due to calcified aortic valve per cardiology Will need rehab placement as able 09/24 continue IV Cefazolin 42 days from September 18, 2023 SUSAN Cr 1.6 on 09/20 down to 0.9 Nephrology consulted and following Collins removed on 09/21 Urine cultx - negat. avoid nephrotoxic agents - resolved Acute metabolic encephalopathy Likely secondary to above Mental status back to baseline Monitor - resolved Suspected L Wrist osteoarthritis--less likely per orthopedics S/P left wrist arthrocentesis on 09/16/23 synovial fluid Cx: MSSA -Left Wrist MRI: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 Old fracture of the scaphoid with the proximal fracture fragment nonvisualized. 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 Clinically and radiographically, left and right wrists are very similar. There is no wrist effusion on MRI to indicate septic arthritis, and no significant edema within the bone to indicate osteomyelitis. I discussed his previous left wrist arthrocentesis done on 09/15 with JYOTSNA Luong. There was no significant effusion that could be withdrawn, and certainly no purulence. He did report getting some blood in the syringe during the aspiration. He did have positive blood cultures at that time. The positive aspirate cultures are therefore likely contaminant from his bacteremia. Even so, it is very unlikely for a septic joint to cause systemic septicemia. I do not think his sepsis is related to his left wrist. I do not think he requires any urgent orthopedic surgical intervention. " Continue antibiotics as above Will benefit from following with orthopedics as outpatient on discharge Hypokalemia Replete electrolytes as needed Monitor Chronic Lower back Pain Likely due to spinal stenosis --Lumbar MR noted multilevel degenerative changes with severe canal stenosis and severe bilateral neuroforaminal stenosis --Hand CT Right noted severe narrowing of radiocarpal joint and intercarpal joints with subchondral erosions, partial collapse of wrist joint. Less likely septic joint --Hand CT left noted severe narrowing with mod sclerosis, subchondral cyst in radiocarpal and Intercarpal joints. Differential considerations include septic joint vs gout vs erosive OA -- Appreciate Orthopedics Input --Cautious use of pain medications H/O Bronchial asthma/allergic eosinophilia/allergic bronchopulmonary aspergillosis with elevated IgE on chronic steroid Rx Continue prednisone, montelukast, Trelegy Continue Nebs CIDP receiving outpatient IVIG infusions Outpatient follow up Hypertension Losartan on hold for susan resume HCTZ- will also help generalized edema, likely from chronic steroids Monitor JOANN S/P surgery H/O CPAP intolerance New onset anemia Hemoptysis likely due to Pneumonia FOBT done at the ER was reported to be negative Also dilutional contributing Monitor CBC Past tobacco abuse per records DVT Px: Lovenox SQ Code Status Full code Disposition anticipate transition to acute rehab in 1-2 days Admission and Anticipated Discharge Date Admission Date: September 12, 2023 Subjective ff up for MSSA bacteremia, etc seen resting in bed, comfortable states he feels fine overall feels improving no chest pain, dyspnea, palpitations, dizziness no fever/chills no other symptoms Review of Systems Review of Systems: all noted and negative except for above Physical Exam Physical Exam: General- oriented x 3, not in distress, speaks in sentences with no effort or accessory muscle use Eyes- anicteric Neck- no JVD Lungs- clear breath sounds bilaterally, no rales/wheezes Heart- normal rate, regular rhythm; no murmurs Abdomen- normal bowel sounds, nondistended, soft, nontender Extremities- no pretibial edema, no calf tenderness mild bl hand and feet edema Neuro- alert, oriented x 3; no gross focal neurologic deficits Skin- warm & dry Results & Data Results & Data Vital Signs (Past 12 Hours) Vital Signs Temp Pulse Pulse Resp BP Pulse Ox O2 Del Method 09/25/23 11:57 36.7 C 108 H 18 143/88 H 93 Room Air 09/25/23 09:52 Room Air 09/25/23 09:39 113 H 09/25/23 07:52 36.6 C 116 H 20 146/99 H 95 Room Air 09/25/23 03:00 36.6 C 115 H 21 143/94 H 94 Room Air all noted and reviewed including below
[2023-09-25] MEDS: FUROSEMIDE INJ 20 MG/2 ML VIAL IV ONE (19:53)
[2023-09-26 06:18] LABS: Hematocrit (blood only) 33.4 % (42.0-52.0); Hemoglobin 10.9 g/dl (14.0-18.0); Mean Corpuscular Hemoglobin 30.4 pg (25.0-34.0); Mean Corpuscular Hgb Conc 32.6 g/dL (32.0-36.0); Mean Corpuscular Volume 93.3 fL (80.0-100.0); Mean Platelet Volume 10.5 fL (9.4-12.4); Platelet Count 604 K/uL (130-400); RDW Coefficient of Variation 14.8 % (11.5-14.5); RDW Standard Deviation 50.7 fL (36.4-46.3); Red Blood Count 3.58 M/uL (4.70-6.10)
[2023-09-26 06:58] LABS: Creatinine Clr Calc Pharmacy 95.5 ml/min; Est GFR (African American) 102.1 ml/min; Est GFR (Non-African American) 88.1 ml/min; Magnesium 1.9 mg/dl (1.7-2.4); Phosphorus 3.1 mg/dl (2.5-4.9); Potassium 4.1 mmol/L (3.5-5.1)
[2023-09-26] MEDS: FUROSEMIDE INJ 20 MG/2 ML VIAL IV SCH (08:08)
--- NOTE | 2023-09-26 09:11 | Nephrology Progress Note ---
Date of Service September 26, 2023 Assessment & Plan Admission and Anticipated Discharge Date Admission Date: September 12, 2023 Subjective Assessment & Plan (1) SUSAN (acute kidney injury): Plan: now resolved nonoliguric improving slowly but abrupt onset stage 1 SUSAN in the setting of therapy for MSSA bacteremia complicated by mild hyponatremia and drop in bicarbonate. baseline creatinine 0.9-1.0 and now back to baseline has lot of edema now Stop HCTZ at discharge also. Raise Lasix to 40 iv q8h. raise kcl to 20 bid. Also for Discharge on Lasix and no HCTZ Creat normal now. Daily labs I and O as much as possible Subjective Appears weak. BP is high. Massive edema with Skin changes Review of Systems Review of Systems: All systems reviewed & are unremarkable except as noted in Subjective Physical Exam Constitutional: well developed, well nourished, + physical limitations and cooperative; no acute distress Eyes: EOM intact bilaterally ENMT: Ears: no external ear abnormality Nose: no external nose abnormality Mouth: + dry oral mucous membranes Neck: no nuchal rigidity Respiratory: normal respiratory effort Auscultation: + diminished lung sounds Cardiovascular: Rate/Rhythm: regular rate and regular rhythm Extremities: + edema (2+ pitting bilateral lower extremity edema to the knees and 2++ pedal ) Gastrointestinal (Abdomen): Inspection/Auscultation: normal bowel sounds Percussion/Palpation: abdomen soft; abdomen nontender Musculoskeletal: Extremities: strength 5/5 throughout Skin: no rashes, warm and dry Psychiatric: Orientation: alert and oriented x 3 Speech: normal rate/rhythm/volume of speech Affect: euthymic affect Results & Data Vital Signs (Past 12 Hours) Vital Signs Temp Pulse Resp BP BP Pulse Ox O2 Del Method 09/26/23 07:18 36.4 C L 111 H 18 163/94 H 91 Room Air 09/26/23 03:08 36.5 C 111 H 22 151/82 H 93 Room Air 09/25/23 22:55 36.5 C 103 H 19 155/91 H 94 Room Air
[2023-09-26] MEDS: FUROSEMIDE 40 MG/4 ML VIAL IV SCH (11:16)
--- NOTE | 2023-09-26 19:12 | Hospitalist Progress Note ---
Date of Service September 26, 2023 Assessment & Plan (1) MSSA bacteremia: Plan: (1) Severe sepsis: Plan: Per previous hospitalist w/ addendum 68 yo M with history significant for mild , hypertension, bronchial asthma/allergic eosinophilia/allergic bronchopulmonary aspergillosis with elevated IgE on chronic steroid Rx, JOANN status post surgery (CPAP intolerance), CIDP outpatient IVIG infusions, past tobacco abuse who presented with worsening chronic hand pain/back pain, weakness, shortness of breath. 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 EF 60 to 65%. Borderline concentric LVH. Grade 1 diastolic function. Attic valve is moderately calcified and possibly bicuspid. Moderate valvular aortic stenosis. Moderate mitral annular calcification. Mild mitral and tricuspid regurgitation. --CT chest:Bilateral pulmonary infiltrates, most pronounced in the right upper lobe. This likely represent bilateral pneumonia. 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 Old fracture of the scaphoid with the proximal fracture fragment nonvisualized. ---Serological test for histoplasma, fungitell pending --Procalcitonin 11.9 --Urine culture no growth --ANASTASIIA on 09/18/23: no vegetation to suggest endocarditis with limitations of calcified aortic valve. --Continue on cefepime, Flagyl, also on doxycycline>> cefazolin, Flagyl, Doxy>>Cefazolin Appreciate infectious disease, cardiology and pulmonary input Aspiration precautions Discontinue IV fluids Peripheral smear consistent with infectious process Will likely need repeat echocardiogram in 1 month Discussed with ID on 09/19/2023. Advised to discontinue doxycycline, Flagyl. Advised to continue cefazolin and requested Ortho to reevaluate Discussed with orthopedics on 09/19/23: Does not think that it is os teomyelitis. Likely severe posttraumatic arthritis. Clinically does not believe to be infected given dry tap, no effusion. No intervention, surgery recommended. Discussed with ID Dr. Lynne on 09/20/2023. Advised to complete 6-week course of IV cefazolin from first negative blood culture. Patient will require repeat echo to reevaluate for any vegetation given limited views due to calcified aortic valve per cardiology Will need rehab placement as able 09/25 continue IV Cefazolin 42 days from September 18, 2023 SUSAN Cr 1.6 on 09/20 down to 0.9 Nephrology consulted and following Collins removed on 09/21 Urine cultx - negat. 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 Old fracture of the scaphoid with the proximal fracture fragment nonvisualized. 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 Clinically and radiographically, left and right wrists are very similar. There is no wrist effusion on MRI to indicate septic arthritis, and no significant edema within the bone to indicate osteomyelitis. I discussed his previous left wrist arthrocentesis done on 09/15 with JYOTSNA Luong. There was no significant effusion that could be withdrawn, and certainly no purulence. He did report getting some blood in the syringe during the aspiration. He did have positive blood cultures at that time. The positive aspirate cultures are therefore likely contaminant from his bacteremia. Even so, it is very unlikely for a septic joint to cause systemic septicemia. I do not think his sepsis is related to his left wrist. I do not think he requires any urgent orthopedic surgical intervention. " Continue antibiotics as above Will benefit from following with orthopedics as outpatient on discharge Hypokalemia Replete electrolytes as needed Monitor Chronic Lower back Pain Likely due to spinal stenosis --Lumbar MR noted multilevel degenerative changes with severe canal stenosis and severe bilateral neuroforaminal stenosis --Hand CT Right noted severe narrowing of radiocarpal joint and intercarpal joints with subchondral erosions, partial collapse of wrist joint. Less likely septic joint --Hand CT left noted severe narrowing with mod sclerosis, subchondral cyst in radiocarpal and Intercarpal joints. Differential considerations include septic j oint vs gout vs erosive OA -- Appreciate Orthopedics Input --Cautious use of pain medications H/O Bronchial asthma/allergic eosinophilia/allergic bronchopulmonary aspergillosis with elevated IgE on chronic steroid Rx Continue prednisone, montelukast, Trelegy Continue Nebs CIDP receiving outpatient IVIG infusions Outpatient follow up Hypertension Losartan on hold for susan on Lasix IV monitor JOANN S/P surgery H/O CPAP intolerance New onset anemia Hemoptysis likely due to Pneumonia FOBT done at the ER was reported to be negative Also dilutional contributing Monitor CBC Past tobacco abuse per records DVT Px: Lovenox SQ Code Status Full code Disposition transition to acute rehab when medically stable Admission and Anticipated Discharge Date Admission Date: September 12, 2023 Subjective ff up for MSSA bacteremia, etc seen resting in bedside chair, comfortable states he feels ok overall no chest pain, dyspnea, palpitations, dizziness ambulated in the hallways today no leg pain Review of Systems Review of Systems: all noted and negative except for above Physical Exam Physical Exam: General- oriented x 3, not in distress, speaks in sentences with no effort or accessory muscle use Eyes- anicteric Neck- no JVD Lungs- clear breath sounds bilaterally, no rales/wheezes Heart- normal rate, regular rhythm; no murmurs Abdomen- normal bowel sounds, nondistended, soft, nontender Extremities- (+) grade 1-2 lower ext edema (+) mild erythema, warmth no tenderness Neuro- alert, oriented x 3; no gross focal neurologic deficits Skin- warm & dry Results & Data Results & Data Vital Signs (Past 12 Hours) Vital Signs Temp Pulse Pulse Resp BP BP Pulse Ox 09/26/23 16:48 36.6 C 108 H 18 155/92 H 95 09/26/23 16:30 113 H 09/26/23 14:00 115 H 09/26/23 12:41 36.3 C L 107 H 18 136/84 94 09/26/23 07:18 36.4 C L 111 H 18 163/94 H 91 O2 Del Method 09/26/23 16:48 Room Air 09/26/23 16:30 09/26/23 14:00 09/26/23 12:41 Room Air 09/26/23 07:18 Room Air all noted and reviewed including below
[2023-09-26] MEDS: POTASSIUM CHLORIDE CRTAB 20 MEQ TABCR PO SCH (20:27)
[2023-09-27] MEDS: TIOTROPIUM BROMIDE RESPIMAT INH SCH (08:23)
--- NOTE | 2023-09-27 10:00 | Nephrology Progress Note ---
Date of Service September 27, 2023 Assessment & Plan Admission and Anticipated Discharge Date Admission Date: September 12, 2023 Subjective Assessment & Plan (1) SUSAN (acute kidney injury): Plan: now resolved nonoliguric improving slowly but abrupt onset stage 1 SUSAN in the setting of therapy for MSSA bacteremia complicated by mild hyponatremia and drop in bicarbonate. baseline creatinine 0.9-1.0 and now back to baseline has lot of edema now Stop HCTZ at discharge also. Continue Lasix to 40 iv q8h. Continue kcl to 20 bid. Also for Discharge on Lasix and no HCTZ Creat normal now. Daily labs I and O as much as possible and also Daily wt. Subjective Appears weak. BP is high. Massive edema with Skin changes. Not sure about the urine Output ?? with iv lasix Review of Systems Review of Systems: All systems reviewed & are unremarkable except as noted in Subjective Physical Exam Constitutional: well developed, well nourished, + physical limitations and cooperative; no acute distress Eyes: EOM intact bilaterally ENMT: Ears: no external ear abnormality Nose: no external nose abnormality Mouth: + dry oral mucous membranes Neck: no nuchal rigidity Respiratory: normal respiratory effort Auscultation: + diminished lung sounds Cardiovascular: Rate/Rhythm: regular rate and regular rhythm Extremities: + edema (3+ pitting bilateral lower extremity edema to the knees and 2++ pedal ) Gastrointestinal (Abdomen): Inspection/Auscultation: normal bowel sounds Percussion/Palpation: abdomen soft; abdomen nontender Musculoskeletal: Extremities: strength 5/5 throughout Skin: no rashes, warm and dry Psychiatric: Orientation: alert and oriented x 3 Speech: normal rate/rhythm/volume of speech Affect: euthymic affect Results & Data Vital Signs (Past 12 Hours) Vital Signs Temp Pulse Pulse Resp BP Pulse Ox O2 Del Method 09/27/23 08:00 120 H 09/27/23 07:52 36.3 C L 117 H 18 154/93 H 92 Room Air 09/27/23 03:01 36.8 C 116 H 22 150/99 H 96 Room Air 09/26/23 23:17 36.7 C 106 H 20 138/93 96 Room Air 09/26/23 22:02 109 H
[2023-09-27 10:59] LABS: BUN Creatinine Ratio 20.5 (10-20); Calcium 9.7 mg/dl (8.6-10.3); Creatinine Clr Calc Pharmacy 73.5 ml/min; Est GFR (African American) 77.3 ml/min; Est GFR (Non-African American) 66.7 ml/min; Potassium 3.6 mmol/L (3.5-5.1)
--- NOTE | 2023-09-27 18:41 | Hospitalist Progress Note ---
Date of Service September 27, 2023 Assessment & Plan (1) MSSA bacteremia: Plan: MSSA bacteremia: Plan: (1) Severe sepsis: Plan: Per previous hospitalist w/ addendum 68 yo M with history significant for mild , hypertension, bronchial asthma/allergic eosinophilia/allergic bronchopulmonary aspergillosis with elevated IgE on chronic steroid Rx, JOANN status post surgery (CPAP intolerance), CIDP outpatient IVIG infusions, past tobacco abuse who presented with worsening chronic hand pain/back pain, weakness, shortness of breath. 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 EF 60 to 65%. Borderline concentric LVH. Grade 1 diastolic function. Attic valve is moderately calcified and possibly bicuspid. Moderate valvular aortic stenosis. Moderate mitral annular calcification. Mild mitral and tricuspid regurgitation. --CT chest:Bilateral pulmonary infiltrates, most pronounced in the right upper lobe. This likely represent bilateral pneumonia. 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 Old fracture of the scaphoid with the proximal fracture fragment nonvisualized. ---Serological test for histoplasma, fungitell pending --Procalcitonin 11.9 --Urine culture no growth --ANASTASIIA on 09/18/23: no vegetation to suggest endocarditis with limitations of calcified aortic valve. --Continue on cefepime, Flagyl, also on doxycycline>> cefazolin, Flagyl, Doxy>>Cefazolin Appreciate infectious disease, cardiology and pulmonary input Aspiration precautions Discontinue IV fluids Peripheral smear consistent with infectious process Will likely need repeat echocardiogram in 1 month Discussed with ID on 09/19/2023. Advised to discontinue doxycycline, Flagyl. Advised to continue cefazolin and requested Ortho to reevaluate Discussed with orthopedics on 09/19/23: Does not think that it is osteomyelitis. Likely severe posttraumatic arthritis. Clinically does not believe to be infected given dry tap, no effusion. No intervention, surgery recommended. Discussed with ID Dr. Lynne on 09/20/2023. Advised to complete 6-week course of IV cefazolin from first negative blood culture. Patient will require repeat echo to reevaluate for any vegetation given limited views due to calcified aortic valve per cardiology Will need rehab placement as able 09/26 continue IV Cefazolin 42 days from September 18, 2023 SUSAN Cr 1.6 on 09/20 down to 0.9 Nephrology consulted and following Collins removed on 09/21 Urine cultx - negat. 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 Old fracture of the scaphoid with the proximal fracture fragment nonvisualized. 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 Clinically and radiographically, left and right wrists are very similar. There is no wrist effusion on MRI to indicate septic arthritis, and no significant edema within the bone to indicate osteomyelitis. I discussed his previous left wrist arthrocentesis done on 09/15 with JYOTSNA Luong. There was no significant effusion that could be withdrawn, and certainly no purulence. He did report getting some blood in the syringe during the aspiration. He did have positive blood cultures at that time. The positive aspirate cultures are therefore likely contaminant from his bacteremia. Even so, it is very unlikely for a septic joint to cause systemic septicemia. I do not think his sepsis is related to his left wrist. I do not think he requires any urgent orthopedic surgical in tervention. " Continue antibiotics as above Will benefit from following with orthopedics as outpatient on discharge Hypokalemia Replete electrolytes as needed Monitor Chronic Lower back Pain Likely due to spinal stenosis --Lumbar MR noted multilevel degenerative changes with severe canal stenosis and severe bilateral neuroforaminal stenosis --Hand CT Right noted severe narrowing of radiocarpal joint and intercarpal joints with subchondral erosions, partial collapse of wrist joint. Less likely septic joint --Hand CT left noted severe narrowing with mod sclerosis, subchondral cyst in radiocarpal and Intercarpal joints. Differential considerations include septic joint vs gout vs erosive OA -- Appreciate Orthopedics Input --Cautious use of pain medications H/O Bronchial asthma/allergic eosinophilia/allergic bronchopulmonary aspergillosis with elevated IgE on chronic steroid Rx Continue prednisone, montelukast, Trelegy Continue Nebs CIDP receiving outpatient IVIG infusions Outpatient follow up Hypertension Losartan on hold for susan on Lasix IV monitor JOANN S/P surgery H/O CPAP intolerance New onset anemia Hemoptysis likely due to Pneumonia FOBT done at the ER was reported to be negative Also dilutional contributing Monitor CBC Past tobacco abuse per records DVT Px: Lovenox SQ Code Status Full code Disposition transition to acute rehab when medically stable Admission and Anticipated Discharge Date Admission and Anticipated Discharge Date Admission Date: September 12, 2023 Subjective ff up for MSSA bacteremia, etc seen resting in chair, comfortable states he feels ok overall no chest pain, dyspnea, palpitations, dizziness minimal LE discomfort no other symptoms Review of Systems Review of Systems: all noted and negative except for above Physical Exam Physical Exam: General- oriented x 3, not in distress, speaks in sentences with no effort or accessory muscle use Eyes- anicteric Neck- no JVD Lungs- clear breath sounds bilaterally, no rales/wheezes Heart- normal rate, regular rhythm; no murmurs Abdomen- normal bowel sounds, nondistended, soft, nontender Extremities- grade 2 LE edema less erythema Neuro- alert, oriented x 3; no gross focal neurologic deficits Skin- warm & dry Results & Data Results & Data Vital Signs (Past 12 Hours) Vital Signs Temp Pulse Pulse Resp BP Pulse Ox O2 Del Method 09/27/23 15:52 115 H 09/27/23 15:37 36.7 C 92 H 18 127/81 95 Room Air 09/27/23 12:15 36.6 C 114 H 18 135/89 93 Room Air 09/27/23 08:00 120 H 09/27/23 07:52 36.3 C L 117 H 18 154/93 H 92 Room Air all noted and reviewed including below
[2023-09-28 11:26] LABS: Calcium 9.9 mg/dl (8.6-10.3); Creatinine Clr Calc Pharmacy 65.1 ml/min; Est GFR (Non-African American) 57.8 ml/min; Potassium 3.5 mmol/L (3.5-5.1)
--- NOTE | 2023-09-28 12:10 | Nephrology Progress Note ---
Date of Service September 28, 2023 Assessment & Plan Admission and Anticipated Discharge Date Admission Date: September 12, 2023 Subjective Assessment & Plan (1) SUSAN (acute kidney injury): Plan: now resolved nonoliguric improving slowly but abrupt onset stage 1 SUSAN in the setting of therapy for MSSA bacteremia complicated by mild hyponatremia and drop in bicarbonate. baseline creatinine 0.9-1.0 and now back to baseline has lot of edema Stop HCTZ at discharge also. Continue Lasix to 40 iv q8h. Continue kcl to 20 bid. Also for Discharge on Lasix and no HCTZ Creat normal now. Daily labs I and O as much as possible and also Daily wt. Subjective Appears weak. BP is normal now. Still has lot of edema with Skin changes. Not sure about the urine Output ?? with iv lasix Review of Systems Review of Systems: All systems reviewed & are unremarkable except as noted in Subjective Physical Exam Constitutional: well developed, well nourished, + physical limitations and cooperative; no acute distress Eyes: EOM intact bilaterally ENMT: Ears: no external ear abnormality Nose: no external nose abnormality Mouth: + dry oral mucous membranes Neck: no nuchal rigidity Respiratory: normal respiratory effort Auscultation: + diminished lung sounds Cardiovascular: Rate/Rhythm: regular rate and regular rhythm Extremities: + edema (3+ pitting bilateral lower extremity edema to the knees and 2++ pedal ) Gastrointestinal (Abdomen): Inspection/Auscultation: normal bowel sounds Percussion/Palpation: abdomen soft; abdomen nontender Musculoskeletal: Extremities: strength 5/5 throughout Skin: no rashes, warm and dry Psychiatric: Orientation: alert and oriented x 3 Speech: normal rate/rhythm/volume of speech Affect: euthymic affect Results & Data Vital Signs (Past 12 Hours) Vital Signs Temp Pulse Pulse Resp BP Pulse Ox O2 Del Method 09/28/23 07:40 36.5 C 107 H 18 129/72 95 Room Air 09/28/23 07:28 Room Air 09/28/23 07:26 110 H 09/28/23 03:23 36.3 C L 115 H 17 134/91 92 Room Air
--- NOTE | 2023-09-28 14:54 | Ultrasound Report ---
US arterial duplex LE RT HISTORY: 68 years-old Male r/o stenosis acute pain of the right lower leg COMPARISON: None TECHNIQUE: Multiple real-time sonographic images of the right lower extremity arterial structures wer e obtained assessing grayscale appearance, color and Doppler flow FINDINGS: Atherosclerosis. Predominantly triphasic waveforms are noted throughout. No arterial occlusion or sig nificantly elevated peak systolic velocities to suggest high-grade stenosis. IMPRESSION: Atherosclerosis without arterial occlusion or high-grade stenosis identified. ACT 112: Negative or not required by law. The above report was generated using voice recognition software. It may contain grammatical, syntax o r spelling errors. Electronically signed by: Sammy Wright M.D. 09/28/2023 2:53 PM
--- NOTE | 2023-09-28 17:46 | Hospitalist Progress Note ---
Date of Service September 28, 2023 Assessment & Plan (1) MSSA bacteremia: Plan: (1) MSSA bacteremia: Plan: MSSA bacteremia: Plan: (1) Severe sepsis: Plan: Per previous hospitalist w/ addendum 68 yo M with history significant for mild , hypertension, bronchial asthma/allergic eosinophilia/allergic bronchopulmonary aspergillosis with elevated IgE on chronic steroid Rx, JOANN status post surgery (CPAP intolerance), CIDP outpatient IVIG infusions, past tobacco abuse who presented with worsening chronic hand pain/back pain, weakness, shortness of breath. 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 EF 60 to 65%. Borderline concentric LVH. Grade 1 diastolic function. Attic valve is moderately calcified and possibly bicuspid. Moderate valvular aortic stenosis. Moderate mitral annular calcification. Mild mitral and tricuspid regurgitation. --CT chest:Bilateral pulmonary infiltrates, most pronounced in the right upper lobe. This likely represent bilateral pneumonia. 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 Old fracture of the scaphoid with the proximal fracture fragment nonvisualized. ---Serological test for histoplasma, fungitell pending --Procalcitonin 11.9 --Urine culture no growth --ANASTASIIA on 09/18/23: no vegetation to suggest endocarditis with limitations of calcified aortic valve. --Continue on cefepime, Flagyl, also on doxycycline>> cefazolin, Flagyl, Doxy>>Cefazolin Appreciate infectious disease, cardiology and pulmonary input Aspiration precautions Discontinue IV fluids Peripheral smear consistent with infectious process Will likely need repeat echocardiogram in 1 month Discussed with ID on 09/19/2023. Advised to discontinue doxycycline, Flagyl. Advised to continue cefazolin and requested Ortho to reevaluate Discussed with orthopedics on 09/19/23: Does not think that it is osteomyelitis. Likely severe posttraumatic arthritis. Clinically does not believe to be infected given dry tap, no effusion. No intervention, surgery recommended. Discussed with ID Dr. Lynne on 09/20/2023. Advised to complete 6-week course of IV cefazolin from first negative blood culture. Patient will require repeat echo to reevaluate for any vegetation given limited views due to calcified aortic valve per cardiology Will need rehab placement as able 09/27 continue IV Cefazolin 42 days from September 18, 2023 SUSAN Cr 1.6 on 09/20 down to 0.9 Nephrology consulted and following Collins removed on 09/21 Urine cultx - negat. 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 Old fracture of the scaphoid with the proximal fracture fragment nonvisualized. 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 Clinically and radiographically, left and right wrists are very similar. There is no wrist effusion on MRI to indicate septic arthritis, and no significant edema within the bone to indicate osteomyelitis. I discussed his previous left wrist arthrocentesis done on 09/15 with JYOTSNA Luong. There was no significant effusion that could be withdrawn, and certainly no purulence. He did report getting some blood in the syringe during the aspiration. He did have positive blood cultures at that time. The positive aspirate cultures are therefore likely contaminant from his bacteremia. Even so, it is very unlikely for a septic joint to cause systemic septicemia. I do not think his sepsis is related to his left wrist. I do not think he requires any urgent orthopedic surgical intervention. " Continue antibiotics as above Will benefit from following with orthopedics as outpatient on discharge Hypokalemia Replete electrolytes as needed Monitor Chronic Lower back Pain Likely due to spinal stenosis --Lumbar MR noted multilevel degenerative changes with severe canal stenosis and severe bilateral neuroforaminal stenosis --Hand CT Right noted severe narrowing of radiocarpal joint and intercarpal joints with subchondral erosions, partial collapse of wrist joint. Less likely septic joint --Hand CT left noted severe narrowing with mod sclerosis, subchondral cyst in radiocarpal and Intercarpal joints. Differential considerations include septic joint vs gout vs erosive OA -- Appreciate Orthopedics Input --Cautious use of pain medications H/O Bronchial asthma/allergic eosinophilia/allergic bronchopulmonary aspergillosis with elevated IgE on chronic steroid Rx Continue prednisone, montelukast, Trelegy Continue Nebs CIDP receiving outpatient IVIG infusions Outpatient follow up Hypertension Losartan on hold for susan on Lasix IV monitor JOANN S/P surgery H/O CPAP intolerance New onset anemia Hemoptysis likely due to Pneumonia FOBT done at the ER was reported to be negative Also dilutional contributing Monitor CBC Past tobacco abuse per records DVT Px: Lovenox SQ Code Status Full code Disposition transition to acute rehab when medically stable Admission and Anticipated Discharge Date Admission Date: September 12, 2023 Subjective Follow-up for MSSA bacteremia, etc. Seen sitting up in chair, comfortable, no distress States he feels okay overall No shortness of breath No leg pain No other new symptom Review of Systems Review of Systems: all noted and negative except for above Physical Exam Physical Exam: General- oriented x 3, not in distress, speaks in sentences with no effort or accessory muscle use Eyes- anicteric Neck- no JVD Lungs- clear breath sounds bilaterally, no rales/wheezes Heart- normal rate, regular rhythm; no murmurs Abdomen- normal bowel sounds, nondistended, soft, nontender Extremities-grade 1-2 lower extremity edema, seems to be improving Left hand edema also resolved Neuro- alert, oriented x 3; no gross focal neurologic deficits Skin- warm & dry Results & Data Results & Data Vital Signs (Past 12 Hours) Vital Signs Temp Pulse Pulse Resp BP Pulse Ox O2 Del Method 09/28/23 17:11 114 H 09/28/23 15:20 36.6 C 109 H 18 149/75 H 96 Room Air 09/28/23 12:43 36.5 C 118 H 19 116/74 95 Room Air 09/28/23 07:40 36.5 C 107 H 18 129/72 95 Room Air 09/28/23 07:28 Room Air 09/28/23 07:26 110 H all noted and reviewed including below
[2023-09-29 06:52] LABS: BUN Creatinine Ratio 24.2 (10-20); Calcium 9.3 mg/dl (8.6-10.3); Creatinine Clr Calc Pharmacy 64.2 ml/min; Est GFR (African American) 65.7 ml/min; Est GFR (Non-African American) 56.7 ml/min
--- NOTE | 2023-09-29 11:14 | Nephrology Progress Note ---
Date of Service September 29, 2023 Assessment & Plan Admission and Anticipated Discharge Date Admission Date: September 12, 2023 Subjective Assessment & Plan (1) SUSAN (acute kidney injury): Plan: now resolved nonoliguric improving slowly but abrupt onset stage 1 SUSAN in the setting of therapy for MSSA bacteremia complicated by mild hyponatremia and drop in bicarbonate. baseline creatinine 0.9-1.0 and now back to baseline has lot of edema Stop HCTZ at discharge also. Urine output not much even with iv lasix. But ?? accurate Charting Raise kcl to 40 bid. also got 40 meq extra for low k today.Check mag also Also for Discharge on Lasix and no HCTZ Creat normal now. Daily labs I and O as much as possible and also Daily wt. Subjective Appears weak. BP is normal now. Still has lot of edema with Skin changes. Only 550 ml urine ?? accuracy. No carr Review of Systems Review of Systems: All systems reviewed & are unremarkable except as noted in Subjective Physical Exam Constitutional: well developed, well nourished, + physical limitations and cooperative; no acute distress Eyes: EOM intact bilaterally ENMT: Ears: no external ear abnormality Nose: no external nose abnormality Mouth: + dry oral mucous membranes Neck: no nuchal rigidity Respiratory: normal respiratory effort Auscultation: + diminished lung sounds Cardiovascular: Rate/Rhythm: regular rate and regular rhythm Extremities: + edema (3+ pitting bilateral lower extremity edema to the knees and 2++ pedal ) Gastrointestinal (Abdomen): Inspection/Auscultation: normal bowel sounds Percussion/Palpation: abdomen soft; abdomen nontender Musculoskeletal: Extremities: strength 5/5 throughout Skin: no rashes, warm and dry Psychiatric: Orientation: alert and oriented x 3 Speech: normal rate/rhythm/volume of speech Affect: euthymic affect Results & Data Vital Signs (Past 12 Hours) Vital Signs Temp Pulse Pulse Resp BP Pulse Ox O2 Del Method 09/29/23 08:04 36.6 C 108 H 17 127/70 97 Room Air 09/29/23 07:00 108 H 09/29/23 03:29 36.6 C 95 H 18 134/85 95 Room Air 09/29/23 03:20 98 H
[2023-09-29] MEDS: POTASSIUM CHLORIDE CRTAB 20 MEQ TABCR PO STA (11:30)
[2023-09-29] MEDS: POTASSIUM CHLORIDE CRTAB 20 MEQ TABCR PO SCH (11:31)
--- NOTE | 2023-09-29 15:54 | Hospitalist Progress Note ---
Date of Service September 29, 2023 Assessment & Plan (1) MSSA bacteremia: Plan: MSSA bacteremia: Plan: (1) Severe sepsis: Plan: Per previous hospitalist w/ addendum 68 yo M with history significant for mild , hypertension, bronchial asthma/allergic eosinophilia/allergic bronchopulmonary aspergillosis with elevated IgE on chronic steroid Rx, JOANN status post surgery (CPAP intolerance), CIDP outpatient IVIG infusions, past tobacco abuse who presented with worsening chronic hand pain/back pain, weakness, shortness of breath. 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 EF 60 to 65%. Borderline concentric LVH. Grade 1 diastolic function. Attic valve is moderately calcified and possibly bicuspid. Moderate valvular aortic stenosis. Moderate mitral annular calcification. Mild mitral and tricuspid regurgitation. --CT chest:Bilateral pulmonary infiltrates, most pronounced in the right upper lobe. This likely represent bilateral pneumonia. 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 Old fracture of the scaphoid with the proximal fracture fragment nonvisualized. ---Serological test for histoplasma, fungitell pending --Procalcitonin 11.9 --Urine culture no growth --ANASTASIIA on 09/18/23: no vegetation to suggest endocarditis with limitations of calcified aortic valve. --Continue on cefepime, Flagyl, also on doxycycline>> cefazolin, Flagyl, Doxy>>Cefazolin Appreciate infectious disease, cardiology and pulmonary input Aspiration precautions Discontinue IV fluids Peripheral smear consistent with infectious process Will likely need repeat echocardiogram in 1 month Discussed with ID on 09/19/2023. Advised to discontinue doxycycline, Flagyl. Advised to continue cefazolin and requested Ortho to reevaluate Discussed with orthopedics on 09/19/23: Does not think that it is osteomyelitis. Likely severe posttraumatic arthritis. Clinically does not believe to be infected given dry tap, no effusion. No intervention, surgery recommended. Discussed with ID Dr. Lynne on 09/20/2023. Advised to complete 6-week course of IV cefazolin from first negative blood culture. Patient will require repeat echo to reevaluate for any vegetation given limited views due to calcified aortic valve per cardiology Will need rehab placement as able 09/28 continue IV Cefazolin 42 days from September 18, 2023 SUSAN Cr 1.6 on 09/20 down to 0.9 Nephrology consulted and following Collins removed on 09/21 Urine cultx - negat. 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 Old fracture of the scaphoid with the proximal fracture fragment nonvisualized. 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 Clinically and radiographically, left and right wrists are very similar. There is no wrist effusion on MRI to indicate septic arthritis, and no significant edema within the bone to indicate osteomyelitis. I discussed his previous left wrist arthrocentesis done on 09/15 with JYOTSNA Luong. There was no significant effusion that could be withdrawn, and certainly no purulence. He did report getting some blood in the syringe during the aspiration. He did have positive blood cultures at that time. The positive aspirate cultures are therefore likely contaminant from his bacteremia. Even so, it is very unlikely for a septic joint to cause systemic septicemia. I do not think his sepsis is related to his left wrist. I do not think he requires any urgent orthopedic surgical intervention. " Continue antibiotics as above Will benefit from following with orthopedics as outpatient on discharge Hypokalemia Replete electrolytes as needed Monitor Chronic Lower back Pain Likely due to spinal stenosis --Lumbar MR noted multilevel degenerative changes with severe canal stenosis and severe bilateral neuroforaminal stenosis --Hand CT Right noted severe narrowing of radiocarpal joint and intercarpal joints with subchondral erosions, partial collapse of wrist joint. Less likely septic joint --Hand CT left noted severe narrowing with mod sclerosis, subchondral cyst in radiocarpal and Intercarpal joints. Differential considerations include septic joint vs gout vs erosive OA -- Appreciate Orthopedics Input --Cautious use of pain medications H/O Bronchial asthma/allergic eosinophilia/allergic bronchopulmonary aspergillosis with elevated IgE on chronic steroid Rx Continue prednisone, montelukast, Trelegy Continue Nebs CIDP receiving outpatient IVIG infusions Outpatient follow up Hypertension Losartan on hold for susan on Lasix IV monitor JOANN S/P surgery H/O CPAP intolerance New onset anemia Hemoptysis likely due to Pneumonia Stable Past tobacco abuse per records DVT Px: Lovenox SQ Code Status Full code Disposition transition to acute rehab when medically stable Admission and Anticipated Discharge Date Admission Date: September 12, 2023 Subjective Follow-up for MSSA bacteremia, etc. Resting in bedside chair, comfortable, in good spirits States he feels fine overall no chest pain, dyspnea, palpitations, dizziness No other new symptoms Review of Systems Review of Systems: all noted and negative except for above Physical Exam Physical Exam: General- oriented x 3, not in distress, speaks in sentences with no effort or accessory muscle use Eyes- anicteric Neck- no JVD Lungs- clear breath sounds bilaterally, no rales/wheezes Heart- normal rate, regular rhythm; no murmurs Abdomen- normal bowel sounds, nondistended, soft, nontender Extremities- no pretibial edema, no calf tenderness Grade 1 through 2 lower extremity edema Seems to be improving Left hand-Edema also resolving Neuro- alert, oriented x 3; no gross focal neurologic deficits Skin- warm & dry Results & Data Results & Data Vital Signs (Past 12 Hours) Vital Signs Temp Pulse Pulse Resp BP Pulse Ox O2 Del Method 09/29/23 15:15 36.5 C 118 H 19 113/75 93 Room Air 09/29/23 11:57 36.4 C L 112 H 18 121/73 92 Room Air 09/29/23 08:04 36.6 C 108 H 17 127/70 97 Room Air 09/29/23 07:00 108 H all noted and reviewed including below
[2023-09-29] MEDS ORDERED: MoRPHine SULFATE 2 MG/ML CARP IV PRN (22:14)
[2023-09-29] MEDS ORDERED: oxyCODONE HCL IR 5 MG TAB (IMMEDIATE RELEASE) PO PRN (22:14)
[2023-09-29] MEDS ORDERED: traMADol HCL 50 MG TABLET PO PRN (22:17)
[2023-09-30] MEDS: MELATONIN 3 MG TAB PO PRN (01:33)
[2023-09-30] MEDS: HYDROmorphone INJ 0.5 MG/0.5 ML SYR IV PRN (01:38)
[2023-09-30 09:31] LABS: Calcium 9.5 mg/dl (8.6-10.3); Creatinine Clr Calc Pharmacy 65.6 ml/min; Est GFR (African American) 67.7 ml/min; Est GFR (Non-African American) 58.4 ml/min; Magnesium 1.9 mg/dl (1.7-2.4)
--- NOTE | 2023-09-30 09:35 | Hospitalist Progress Note ---
Date of Service September 30, 2023 Assessment & Plan (1) MSSA bacteremia: Plan: MSSA bacteremia: Plan: (1) Severe sepsis: Plan: Per previous hospitalist w/ addendum 68 yo M with history significant for mild , hypertension, bronchial asthma/allergic eosinophilia/allergic bronchopulmonary aspergillosis with elevated IgE on chronic steroid Rx, JOANN status post surgery (CPAP intolerance), CIDP outpatient IVIG infusions, past tobacco abuse who presented with worsening chronic hand pain/back pain, weakness, shortness of breath. 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 EF 60 to 65%. Borderline concentric LVH. Grade 1 diastolic function. Attic valve is moderately calcified and possibly bicuspid. Moderate valvular aortic stenosis. Moderate mitral annular calcification. Mild mitral and tricuspid regurgitation. --CT chest:Bilateral pulmonary infiltrates, most pronounced in the right upper lobe. This likely represent bilateral pneumonia. 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 Old fracture of the scaphoid with the proximal fracture fragment nonvisualized. ---Serological test for histoplasma, fungitell pending --Procalcitonin 11.9 --Urine culture no growth --ANASTASIIA on 09/18/23: no vegetation to suggest endocarditis with limitations of calcified aortic valve. --Continue on cefepime, Flagyl, also on doxycycline>> cefazolin, Flagyl, Doxy>>Cefazolin Appreciate infectious disease, cardiology and pulmonary input Aspiration precautions Discontinue IV fluids Peripheral smear consistent with infectious process Will likely need repeat echocardiogram in 1 month Discussed with ID on 09/19/2023. Advised to discontinue doxycycline, Flagyl. Advised to continue cefazolin and requested Ortho to reevaluate Discussed with orthopedics on 09/19/23: Does not think that it is osteomyelitis. Likely severe posttraumatic arthritis. Clinically does not believe to be infected given dry tap, no effusion. No intervention, surgery recommended. Discussed with ID Dr. Lynne on 09/20/2023. Advised to complete 6-week course of IV cefazolin from first negative blood culture. Patient will require repeat echo to reevaluate for any vegetation given limited views due to calcified aortic valve per cardiology Will need rehab placement as able 09/29 continue IV Cefazolin 42 days from September 18, 2023 SUSAN Cr 1.6 on 09/20 down to 0.9 Nephrology consulted and following Collins removed on 09/21 Urine cultx - negat. 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 Old fracture of the scaphoid with the proximal fracture fragment nonvisualized. 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 Clinically and radiographically, left and right wrists are very similar. There is no wrist effusion on MRI to indicate septic arthritis, and no significant alivia ma within the bone to indicate osteomyelitis. I discussed his previous left wrist arthrocentesis done on 09/15 with JYOTSNA Luong. There was no significant effusion that could be withdrawn, and certainly no purulence. He did report getting some blood in the syringe during the aspiration. He did have positive blood cultures at that time. The positive aspirate cultures are therefore likely contaminant from his bacteremia. Even so, it is very unlikely for a septic joint to cause systemic septicemia. I do not think his sepsis is related to his left wrist. I do not think he requires any urgent orthopedic surgical intervention. " Continue antibiotics as above Will benefit from following with orthopedics as outpatient on discharge Hypokalemia Replete electrolytes as needed Monitor Chronic Lower back Pain Likely due to spinal stenosis --Lumbar MR noted multilevel degenerative changes with severe canal stenosis and severe bilateral neuroforaminal stenosis --Hand CT Right noted severe narrowing of radiocarpal joint and intercarpal joints with subchondral erosions, partial collapse of wrist joint. Less likely septic joint --Hand CT left noted severe narrowing with mod sclerosis, subchondral cyst in radiocarpal and Intercarpal joints. Differential considerations include septic joint vs gout vs erosive OA -- Appreciate Orthopedics Input --Cautious use of pain medications H/O Bronchial asthma/allergic eosinophilia/allergic bronchopulmonary aspergillosis with elevated IgE on chronic steroid Rx Continue prednisone, montelukast, Trelegy Continue Nebs CIDP receiving outpatient IVIG infusions Outpatient follow up Hypertension Losartan on hold for susan on Lasix IV monitor JOANN S/P surgery H/O CPAP intolerance New onset anemia Hemoptysis likely due to Pneumonia Stable Past tobacco abuse per records DVT Px: Lovenox SQ Code Status Full code Disposition transition to acute rehab when medically stable Admission and Anticipated Discharge Date Admission Date: September 12, 2023 Subjective Follow-up for MSSA bacteremia, etc. Seen resting bed, sitting up at the edge of the bed States he feels fine overall no chest pain, dyspnea, palpitations, dizziness No leg pain No other new symptoms Review of Systems Review of Systems: all noted and negative except for above Physical Exam Physical Exam: General- oriented x 3, not in distress, speaks in sentences with no effort or accessory muscle use Eyes- anicteric Neck- no JVD Lungs- clear breath sounds bilaterally, no rales/wheezes Heart- normal rate, regular rhythm; no murmurs Abdomen- normal bowel sounds, nondistended, soft, nontender Extremities- no pretibial edema, no calf tenderness Grade 1 lower extremity edema, improving Left hand edema mostly resolved Neuro- alert, oriented x 3; no gross focal neurologic deficits Skin- warm & dry Results & Data Results & Data Vital Signs (Past 12 Hours) Vital Signs Temp Pulse Pulse Resp BP Pulse Ox O2 Del Method 09/30/23 07:05 36.3 C L 96 H 17 130/83 95 Room Air 09/30/23 07:00 106 H 09/30/23 04:29 98 H 09/30/23 03:18 36.7 C 104 H 18 147/86 H 92 Room Air 09/29/23 22:00 36.3 C L 107 H 17 94 Room Air all noted and reviewed including below
[2023-10-01 05:55] LABS: BUN Creatinine Ratio 29.3 (10-20); Calcium 9.1 mg/dl (8.6-10.3); Creatinine Clr Calc Pharmacy 88.5 ml/min; Est GFR (Non-African American) 84.6 ml/min; Magnesium 1.8 mg/dl (1.7-2.4); Potassium 3.8 mmol/L (3.5-5.1)
--- NOTE | 2023-10-01 11:26 | Nephrology Progress Note ---
Date of Service October 01, 2023 Assessment & Plan (1) SUSAN (acute kidney injury): Plan: waxing/waning renal function; for now now resolved nonoliguric stage 1 SUSAN; after he had improved slowly w/ previous abrupt onset stage 1 SUSAN in the setting of therapy for MSSA bacteremia and prior to SUSAN sustained diuretic therapy. chemistries acceptable on high dose K supplement. suspect he was overdiuresed previously > ischemic ATN. not oliguric but UOP has dropped off w/ him being off of diuretics. baseline creatinine 0.9-1.0 and now back to baseline after multiple med changes. UA notable for trace ketones, for trace blood, 1+ protein, very concentrated urine, uric acid crystals, 1+ bacteria >> concentrated urine w/ low urine sodium and w/ crystals c/w prerenal process -shoudl not have or be d/c on hctz, losartan meloxicam d/t volume issues, renal function -cont to encourage compression to manage LE edema -continue IV lasix 40 mg three daily doses; have retimed these to be given at 0700, 11 AM and 1700 >>needs strict I/O and STANDING weight daily (as of 09/29 last standing wt slowly downtrending) >>encourage po intake -low threshold for bladder scan given spinal cord issues -daily bmp Admission and Anticipated Discharge Date Admission Date: September 12, 2023 Subjective seen on late AM rounds. ongoing BLE edema and LLE still w/ sore pretibially; also w/ sore on his buttocks from trying to elevate legs; no sob Review of Systems 2 Review of Systems: All systems reviewed & are unremarkable except as noted in Subjective Physical Exam 2 Constitutional: well developed, well nourished, + physical limitations and cooperative; no acute distress Eyes: EOM intact bilaterally ENMT: Ears: no external ear abnormality Nose: no external nose abnormality Mouth: + dry oral mucous membranes Neck: no nuchal rigidity Respiratory: normal respiratory effort Auscultation: + diminished lung sounds Cardiovascular: Rate/Rhythm: regular rate and regular rhythm Extremities: + edema (2+ pitting bilateral lower extremity edema to the knees and 3++ pedal ) Gastrointestinal (Abdomen): Inspection/Auscultation: normal bowel sounds P ercussion/Palpation: abdomen soft; abdomen nontender Musculoskeletal: Extremities: strength 5/5 throughout Skin: Trauma: + evidence of skin trauma (L pretibial lesion wrapped; buttock sore not evaluated) Psychiatric: Orientation: alert and oriented x 3 Speech: normal rate/rhythm/volume of speech Affect: euthymic affect Results & Data Vital Signs (Past 12 Hours) Vital Signs Temp Pulse Pulse Resp BP Pulse Ox O2 Del Method 10/01/23 11:12 36.9 C 102 H 19 117/73 91 Room Air 10/01/23 11:02 97 H 10/01/23 08:00 Room Air 10/01/23 07:12 36.3 C L 75 19 125/86 93 Room Air 10/01/23 03:26 36.6 C 95 H 18 124/80 95 Room Air 10/01/23 00:00 96 H Laboratory Results 09/26/23 05:15 10/01/23 05:06
--- NOTE | 2023-10-01 18:00 | Hospitalist Progress Note ---
Date of Service October 01, 2023 Assessment & Plan (1) MSSA bacteremia: Plan: MSSA bacteremia: Plan: (1) Severe sepsis: Plan: Per previous hospitalist w/ addendum 68 yo M with history significant for mild , hypertension, bronchial asthma/allergic eosinophilia/allergic bronchopulmonary aspergillosis with elevated IgE on chronic steroid Rx, JOANN status post surgery (CPAP intolerance), CIDP outpatient IVIG infusions, past tobacco abuse who presented with worsening chronic hand pain/back pain, weakness, shortness of breath. 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 EF 60 to 65%. Borderline concentric LVH. Grade 1 diastolic function. Attic valve is moderately calcified and possibly bicuspid. Moderate valvular aortic stenosis. Moderate mitral annular calcification. Mild mitral and tricuspid regurgitation. --CT chest:Bilateral pulmonary infiltrates, most pronounced in the right upper lobe. This likely represent bilateral pneumonia. 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 Old fracture of the scaphoid with the proximal fracture fragment nonvisualized. ---Serological test for histoplasma, fungitell pending --Procalcitonin 11.9 --Urine culture no growth --ANASTASIIA on 09/18/23: no vegetation to suggest endocarditis with limitations of calcified aortic valve. --Continue on cefepime, Flagyl, also on doxycycline>> cefazolin, Flagyl, Doxy>>Cefazolin Appreciate infectious disease, cardiology and pulmonary input Aspiration precautions Discontinue IV fluids Peripheral smear consistent with infectious process Will likely need repeat echocardiogram in 1 month Discussed with ID on 09/19/2023. Advised to discontinue doxycycline, Flagyl. Advised to continue cefazolin and requested Ortho to reevaluate Discussed with orthopedics on 09/19/23: Does not think that it is osteomyelitis. Likely severe posttraumatic arthritis. Clinically does not believe to be infected given dry tap, no effusion. No intervention, surgery recommended. Discussed with ID Dr. Lynne on 09/20/2023. Advised to complete 6-week course of IV cefazolin from first negative blood culture. Patient will require repeat echo to reevaluate for any vegetation given limited views due to calcified aortic valve per cardiology Will need rehab placement as able 09/30 continue IV Cefazolin 42 days from September 18, 2023 SUSAN Cr 1.6 on 09/20 down to 0.9 Nephrology consulted and following Collins removed on 09/21 Urine cultx - negat. 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 Old fracture of the scaphoid with the proximal fracture fragment n onvisualized. 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 Clinically and radiographically, left and right wrists are very similar. There is no wrist effusion on MRI to indicate septic arthritis, and no significant edema within the bone to indicate osteomyelitis. I discussed his previous left wrist arthrocentesis done on 09/15 with JYOTSNA Luong. There was no significant effusion that could be withdrawn, and certainly no purulence. He did report getting some blood in the syringe during the aspiration. He did have positive blood cultures at that time. The positive aspirate cultures are therefore likely contaminant from his bacteremia. Even so, it is very unlikely for a septic joint to cause systemic septicemia. I do not think his sepsis is related to his left wrist. I do not think he requires any urgent orthopedic surgical intervention. " Continue antibiotics as above Will benefit from following with orthopedics as outpatient on discharge Hypokalemia Replete electrolytes as needed Monitor Chronic Lower back Pain Likely due to spinal stenosis --Lumbar MR noted multilevel degenerative changes with severe canal stenosis and severe bilateral neuroforaminal stenosis --Hand CT Right noted severe narrowing of radiocarpal joint and intercarpal joints with subchondral erosions, partial collapse of wrist joint. Less likely septic joint --Hand CT left noted severe narrowing with mod sclerosis, subchondral cyst in radiocarpal and Intercarpal joints. Differential considerations include septic joint vs gout vs erosive OA -- Appreciate Orthopedics Input --Cautious use of pain medications H/O Bronchial asthma/allergic eosinophilia/allergic bronchopulmonary aspergillosis with elevated IgE on chronic steroid Rx Continue prednisone, montelukast, Trelegy Continue Nebs CIDP receiving outpatient IVIG infusions Outpatient follow up Hypertension Losartan on hold for susan on Lasix IV monitor JOANN S/P surgery H/O CPAP intolerance New onset anemia Hemoptysis likely due to Pneumonia Stable Past tobacco abuse per records DVT Px: Lovenox SQ Code Status Full code Disposition transition to acute rehab when medically stable Admission and Anticipated Discharge Date Admission Date: September 12, 2023 Subjective Follow-up for MSSA bacteremia, etc. Seen resting in bed side chair, comfortable, not in distress States he feels fine overall no chest pain, dyspnea, palpitations, dizziness No other new symptoms Review of Systems Review of Systems: all noted and negative except for above Physical Exam Physical Exam: General- oriented x 3, not in distress, speaks in sentences with no effort or accessory muscle use Eyes- anicteric Neck- no JVD Lungs- clear BS BL Heart- normal rate, regular rhythm; no murmurs Abdomen- normal bowel sounds, nondistended, soft, nontender Extremities-gr 1 lower ext edema, no calf tenderness improving Neuro- alert, oriented x 3; no gross focal neurologic deficits Skin- warm & dry Results & Data Results & Data Vital Signs (Past 12 Hours) Vital Signs Temp Pulse Pulse Resp BP Pulse Ox O2 Del Method 10/01/23 16:14 114 H 10/01/23 15:13 36.3 C L 107 H 20 119/77 93 Room Air 10/01/23 11:12 36.9 C 102 H 19 117/73 91 Room Air 10/01/23 11:02 97 H 10/01/23 08:00 Room Air 10/01/23 07:12 36.3 C L 75 19 125/86 93 Room Air all noted and reviewed including below
[2023-10-02 07:00] LABS: BUN Creatinine Ratio 25.4 (10-20); Calcium 9.5 mg/dl (8.6-10.3); Est GFR (Non-African American) 57.8 ml/min; Magnesium 1.8 mg/dl (1.7-2.4); Potassium 4.2 mmol/L (3.5-5.1)
[2023-10-02] MEDS: FUROSEMIDE 40 MG/4 ML VIAL IV SCH (08:01)
--- NOTE | 2023-10-02 15:06 | Hospitalist Progress Note ---
Date of Service October 02, 2023 Assessment & Plan (1) MSSA bacteremia: Plan: MSSA bacteremia: Plan: (1) Severe sepsis: Plan: Per previous hospitalist w/ addendum 68 yo M with history significant for mild , hypertension, bronchial asthma/allergic eosinophilia/allergic bronchopulmonary aspergillosis with elevated IgE on chronic steroid Rx, JOANN status post surgery (CPAP intolerance), CIDP outpatient IVIG infusions, past tobacco abuse who presented with worsening chronic hand pain/back pain, weakness, shortness of breath. 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 EF 60 to 65%. Borderline concentric LVH. Grade 1 diastolic function. Attic valve is moderately calcified and possibly bicuspid. Moderate valvular aortic stenosis. Moderate mitral annular calcification. Mild mitral and tricuspid regurgitation. --CT chest:Bilateral pulmonary infiltrates, most pronounced in the right upper lobe. This likely represent bilateral pneumonia. 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 Old fracture of the scaphoid with the proximal fracture fragment nonvisualized. ---Serological test for histoplasma, fungitell pending --Procalcitonin 11.9 --Urine culture no growth --ANASTASIIA on 09/18/23: no vegetation to suggest endocarditis with limitations of calcified aortic valve. Will likely need repeat echocardiogram in 1 month Discussed with ID on 09/19/2023. Advised to discontinue doxycycline, Flagyl. Advised to continue cefazolin and requested Ortho to reevaluate Discussed with orthopedics on 09/19/23: Does not think that it is osteomyelitis. Likely severe posttraumatic arthritis. Clinically does not believe to be infected given dry tap, no effusion. No intervention, surgery recommended. Discussed with ID Dr. Lynne on 09/20/2023. Advised to complete 6-week course of IV cefazolin from first negative blood culture. Patient will require repeat echo to reevaluate for any vegetation given limited views due to calcified aortic valve per cardiology Will need rehab placement as able 10/01 continue IV Cefazolin 42 days from September 18, 2023-last day would be October 30, [address] Weekly labs including CBC, CMP, CK while on IV cefazolin Repeat echocardiogram in 1 month Acute Kidney Injury Cr 1.6 on 09/20 down to 0.9 Nephrology consulted - resolved Lower Extremity Edema Lasix 40mg IV q8h Potassium supplement Significantly improving monitor renal function will discuss with nephrology service regarding diuretic regimen upon discharge to acute rehab Acute metabolic encephalopathy Likely secondary to above Mental status back to baseline 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 Old fracture of the scaphoid with the proximal fracture fragment n onvisualized. 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 Clinically and radiographically, left and right wrists are very similar. There is no wrist effusion on MRI to indicate septic arthritis, and no significant edema within the bone to indicate osteomyelitis. I discussed his previous left wrist arthrocentesis done on 09/15 with JYOTSNA Luong. There was no significant effusion that could be withdrawn, and certainly no purulence. He did report getting some blood in the syringe during the aspiration. He did have positive blood cultures at that time. The positive aspirate cultures are therefore likely contaminant from his bacteremia. Even so, it is very unlikely for a septic joint to cause systemic septicemia. I do not think his sepsis is related to his left wrist. I do not think he requires any urgent orthopedic surgical intervention. " Continue antibiotics as above Will benefit from following with orthopedics as outpatient on discharge Chronic Lower back Pain Likely due to spinal stenosis --Lumbar MR noted multilevel degenerative changes with severe canal stenosis and severe bilateral neuroforaminal stenosis --Hand CT Right noted severe narrowing of radiocarpal joint and intercarpal joints with subchondral erosions, partial collapse of wrist joint. Less likely septic joint --Hand CT left noted severe narrowing with mod sclerosis, subchondral cyst in radiocarpal and Intercarpal joints. Differential considerations include septic joint vs gout vs erosive OA -- Appreciate Orthopedics Input --Cautious use of pain medications H/O Bronchial asthma/allergic eosinophilia/allergic bronchopulmonary aspergillosis with elevated IgE on chronic steroid Rx Continue prednisone, montelukast, Trelegy Continue Nebs CIDP receiving outpatient IVIG infusions Outpatient follow up Hypertension Losartan on hold for jaya on Lasix IV monitor JOANN S/P surgery H/O CPAP intolerance New onset anemia Hemoptysis likely due to Pneumonia Stable Past tobacco abuse per records DVT Px: Lovenox SQ Code Status Full code Disposition transition to acute rehab when cleared by Nephro Admission and Anticipated Discharge Date Admission Date: September 12, 2023 Subjective ff up for MSSA bacteremia, etc seen resting in chair, comfortable in good spirits feels fine overall no other symptoms Review of Systems Review of Systems: all noted and negative except for above Results & Data Results & Data Vital Signs (Past 12 Hours) Vital Signs Temp Pulse Resp BP Pulse Ox O2 Del Method 10/02/23 12:49 Room Air 10/02/23 11:33 36.4 C L 118 H 19 127/87 94 Room Air 10/02/23 07:07 36.5 C 110 H 20 140/48 L 96 Room Air 10/02/23 03:55 36.4 C L 69 130/55 L 96 Room Air
--- NOTE | 2023-10-02 17:45 | Nephrology Progress Note ---
Date of Service October 02, 2023 Assessment & Plan (1) SUSAN (acute kidney injury): Plan: waxing/waning renal function; for now now resolved nonoliguric stage 1 SUSAN; after he had improved slowly w/ previous abrupt onset stage 1 SUSAN in the setting of therapy for MSSA bacteremia and prior to SUSAN sustained diuretic therapy. chemistries acceptable on high dose K supplement. suspect he was overdiuresed previously > ischemic ATN. not oliguric but UOP has dropped off w/ him being off of diuretics. baseline creatinine 0.9-1.0 and now back to baseline after multiple med changes. UA notable for trace ketones, for trace blood, 1+ protein, very concentrated urine, uric acid crystals, 1+ bacteria >> concentrated urine w/ low urine sodium and w/ crystals c/w prerenal process -should not have or be d/c on hctz, losartan meloxicam d/t volume issues, renal function -cont to encourage compression to manage LE edema -change IV lasix 40 mg three daily doses at 0700, 11 AM and 1700 to torsemide 60 mg daily w/ extra 40 mg torsemide dose on days of IVIG infusions -continue K 40 mEq bid po >>needs strict I/O and STANDING weight daily (as of 09/29 last standing wt slowly downtrending) >>encourage po intake -low threshold for bladder scan given spinal cord issues -daily bmp and q M/Thurs at rehab Care coordinated w/ Dr Shoemaker regarding diuretics and we are in agreement. Admission and Anticipated Discharge Date Admission Date: September 12, 2023 Subjective feels his edema is acceptably controlled. weight is slowly downtrending. at bedside today on midday rounds; pt anxious for d/c. no sob, no n/v; feels he can ambulate accceptably Review of Systems 2 Review of Systems: All systems reviewed & are unremarkable except as noted in Subjective Physical Exam 2 Constitutional: well developed, well nourished, + physical limitations and cooperative; no acute distress Eyes: EOM intact bilaterally ENMT: Ears: no external ear abnormality Nose: no external nose abnormality Mouth: + dry oral mucous membranes Neck: no nuchal rigidity Respiratory: normal respiratory effort Auscultation: + diminished lung sounds Cardiovascular: Rate/Rhythm: regular rate and regular rhythm Extremities: + edema (2+ pitting bilateral lower extremity edema to the knees and 2++ pedal ) Gastrointestinal (Abdomen): Inspection/Auscultation: normal bowel sounds P ercussion/Palpation: abdomen soft; abdomen nontender Musculoskeletal: Extremities: strength 5/5 throughout Skin: no rashes, warm and dry Trauma: + evidence of skin trauma (L pretibial lesion wrapped; buttock sore not evaluated) Psychiatric: Orientation: alert and oriented x 3 Speech: normal rate/rhythm/volume of speech Affect: euthymic affect Results & Data Vital Signs (Past 12 Hours) Vital Signs Temp Pulse Resp BP Pulse Ox O2 Del Method 10/02/23 15:07 36.5 C 105 H 17 133/90 95 Room Air 10/02/23 12:49 Room Air 10/02/23 11:33 36.4 C L 118 H 19 127/87 94 Room Air 10/02/23 07:07 36.5 C 110 H 20 140/48 L 96 Room Air Laboratory Results 09/26/23 05:15 10/02/23 06:16
[2023-10-03 06:20] LABS: BUN Creatinine Ratio 27.1 (10-20); Calcium 9.4 mg/dl (8.6-10.3); Creatinine Clr Calc Pharmacy 69.3 ml/min; Est GFR (African American) 72.5 ml/min; Est GFR (Non-African American) 62.6 ml/min; Magnesium 1.8 mg/dl (1.7-2.4); Potassium 4.1 mmol/L (3.5-5.1)
[2023-10-03] MEDS: TORSEMIDE 20 MG TAB PO SCH (07:43)
--- NOTE | 2023-10-03 15:58 | Discharge Summary ---
Date of Service October 03, 2023 Admission HPI Per Admitting Provider History obtained from patient, family, and records. 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 Last confinement July 2018 for left lower extremity cellulitis. 3 weeks ago, patient noted right wrist pain while loading a sack of pallets into a stove. Progressive right wrist/hand swelling. 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 It is unclear if there is superimposed acute injury, though soft tissue swelling is present. If clinically warranted, correlation with MRI could be considered. No improvement with ice compress and topical pain recommendations by PCP's office. Patient refused higher dose of steroid recommended by PCP due to past history of bad reaction as per . Subsequent swelling of left hand and wrist noted a week later without recollection of antecedent trauma. Last week, patient noted dysuria symptoms. Outpatient urine CS grew Staph aureus. Patient completed Bactrim Rx. Worsening bilateral wrist swelling associated with achy back pain the last few days. No leg radiation although legs feel weaker than usual as per patient. Denies urinary incontinence. Shortness of breath without chest pain or cough. Denies headache, abdominal pain. Dark stools noted at home. Denies hematuria. Patient brought to ER by due to worsening symptoms. 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 Normal insp/exp effort, no accessory muscle use Cardiovascular: RRR, no murmur, no edema Vessels: no JVD or carotid bruit Chest: normal inspection of chest Abdomen: normal bowel sounds, soft, nontender, no hepatosplenomegaly Musculoskeletal: 1+ pitting edema bilateral lower extremity Skin: no rashes, warm and dry normal turgor Neurologic: PERRL, EOMI, accommodation nl, no face palsy, no dysarthria CN's II- XI intact bilaterally and moves all extremities Psychiatric: A+Ox3, euthymic affect Discharge Data Allergies Allergy/AdvReac Type Severity Reaction Status Date / Time amoxicillin AdvReac Intermediate made me Verified 09/12/23 08:49 feel weird Consultations 09/12/23 02:26 ED Decision to Admit Stat 09/13/23 02:33 Consult Orthopedic Surgery Routine 09/13/23 15:20 Consult Infectious Diseases Routine 09/14/23 08:35 Consult Pulmonology Routine 09/14/23 08:40 Consult Cardiology Routine 09/18/23 07:30 Consult Anesthesiology Routine 09/21/23 13:10 Consult Nephrology Routine Procedures Performed Operation Date: 09/18/23 07:30 Actual Procedures p Echo Transesophageal - Artis Duong MD s Echo Color Flow - Artis Duong MD s Echo Doppler Complete - Artis Duong MD Ordered Studies 09/11/23 22:49 CT Abd and Pelvis [CT abd pelvis IV con only] Stat CT angio chest PE protocol Stat 09/11/23 23:52 CT head/brain wo con Stat 09/12/23 03:32 CT lumbar spine w con Stat 09/12/23 12:25 MRI Lumbar Spine [MR lumbar spine wo con] Urgent 09/12/23 19:19 CT hand LT w con Stat CT hand RT w con Stat 09/14/23 02:13 CT chest diagnostic w con Stat 09/14/23 12:19 US arterial duplex LE LT Urgent 09/18/23 14:12 MR wrist LT wo/w con Urgent 09/23/23 16:53 US venous doppler UE LT Routine 09/28/23 12:29 US arterial duplex LE RT Routine Hospital Course (1) MSSA bacteremia: MSSA bacteremia: (1) Severe sepsis: 68 yo M with history significant for mild , hypertension, bronchial asthma/allergic eosinophilia/allergic bronchopulmonary aspergillosis with elevated IgE on chronic steroid Rx, JOANN status post surgery (CPAP intolerance), CIDP outpatient IVIG infusions, past tobacco abuse who presented with worsening chronic hand pain/back pain, weakness, shortness of breath. Severe sepsis with SIRS plus lactic acidosis MSSA bacteremia Bilateral pneumonia Immunocompromised patient Suspected infective endocarditis Acute respiratory failure with hypoxia --Blood cultures from 09/12/2023 growing MSSA --Repeat blood cultures from 09/13/2023 MSSA --Repeat blood cultures from 09/18/23: Negative to date --ECHO: No evidence of mass or vegetation. EF 60 to 65%. Borderline concentric LVH. Grade 1 diastolic function. Attic valve is moderately calcified and possibly bicuspid. Moderate valvular aortic stenosis. Moderate mitral annular calcification. Mild mitral and tricuspid regurgitation. --CT chest:Bilateral pulmonary infiltrates, most pronounced in the right upper lobe. This likely represent bilateral pneumonia. 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 Old fracture of the scaphoid with the proximal fracture fragment nonvisualized. --Procalcitonin 11.9 --Urine culture no growth --ANASTASIIA on 09/18/23: no vegetation to suggest endocarditis with limitations of calcified aortic valve. Will likely need repeat echocardiogram in 1 month Discussed with ID on 09/19/2023. Advised to continue cefazolin and requested Ortho to reevaluate Discussed with orthopedics on 09/19/23: Does not think that it is osteomyelitis. Likely severe posttraumatic arthritis. Clinically does not believe to be infected given dry tap, no effusion. No intervention, surgery recommended. Discussed with ID Dr. Lynne on 09/20/2023. Advised to complete 6-week course of IV cefazolin from first negative blood culture. 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 Old fracture of the scaphoid with the proximal fracture fragment nonvisualized. 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 Clinically and radiographically, left and right wrists are very similar. There is no wrist effusion on MRI to indicate septic arthritis, and no significant edema within the bone to indicate osteomyelitis. I discussed his previous left wrist arthrocentesis done on 09/15 with JYOTSNA Luong. There was no significant effusion that could be withdrawn, and certainly no purulence. He did report getting some blood in the syringe during the aspiration. He did have positive blood cultures at that time. The positive aspirate cultures are therefore likely contaminant from his bacteremia. Even so, it is very unlikely for a septic joint to cause systemic septicemia. I do not think his sepsis is related to his left wrist. I do not think he requires any urgent orthopedic surgical intervention. " Continue antibiotics as above Will benefit from following with orthopedics as outpatient on discharge Please note the above document was generated using voice recognition software. It may contain grammatical, syntax or spelling errors. Any formal questions or concerns about the content, text or information contained within the body of this dictation should be directly addressed to the provider for clarification Total Time Total Time Spent Total Time Spent (In Minutes): 45 Total Time Includes: Examination of the Patient, Discharge Planning, Medication Reconciliation, Communication With Other Providers and Other Discharge Plan Discharge Items Patient Disposition: Transfer Inpatient Rehab Fac Reason For Visit: SEPSIS, TACHY Discharge Diagnosis: MSSA bacteremia Bilateral pneumonia SUSAN Suspected left wrist osteoarthritis Condition on Discharge: Fair Activity: Resume your previous activity Non-emergency contact: Primary Care Provider Call non-emergency contact if: you have any medication questions and your symptoms worsen Follow-up/Referrals: Ruel Fajardo MD [Primary Care Provider] - Diet: Regular Addtl Attending Provider Instructions: You were admitted to the hospital due to severe sepsis with MSSA bacteremia. You are evaluated by infectious disease during the hospitalization. They recommend antibiotics with IV cefazolin till October 30, 2023. He will need weekly labs( on Fridays) of CBC, CMP, CRP while you are on IV cefazolin. You will need repeat echocardiogram in 1 month Nephrology evaluated you during the hospitalization due to acute kidney injury. They recommended to stop losartan, hydrochlorothiazide, meloxicam. You are placed on torsemide 60 mg once a day. Pending Studies at Discharge: No Stand-Alone Forms: [facility] Skilled Items Patient informed of condition?: Yes DNR: No Discharge Level of Care: Acute rehab Communicable Disease: No Discharge Prognosis: Stable Lines: PICC Urinary Catheter: No Medications and DC Order Prescriptions: New acetaminophen [Tylenol Extra Strength] 500 mg Tablet 500 mg PO Q6H PRN (Reason: fever or pain) Qty: 30 0RF potassium chloride 20 mEq Tablet,Er Particles/Crystals 40 meq PO BID 30 Days Qty: 120 0RF torsemide 60 mg tablet 60 mg PO DAILY Qty: 30 0RF Continued albuterol sulfate 2.5 mg /3 mL (0.083 %) solution for nebulization 1 vial Continuous Nebulization Q4 PRN (Reason: Shortness Of Breath Or Wheezing) fluticasone propion-salmeterol 500-50 mcg/dose blister with device 1 puff Inhalation BID albuterol sulfate 90 mcg/actuation HFA aerosol inhaler 2 puff Inhalation Q4 PRN (Reason: Shortness Of Breath Or Wheezing) mometasone 50 mcg/actuation spray,non-aerosol 2 spray Intranasal DAILY montelukast 10 mg tablet 10 mg PO QAM metoprolol succinate 25 mg tablet extended release 24 hr 25 mg PO UD Rx Instructions: Take 25mg by mouth in the morning; Can take 100mg by mouth daily during IVIG treatment days. metaxalone 800 mg tablet 800 mg PO TID PRN (Reason: Muscle Spasm) prednisone 10 mg Tablet 10 - 30 mg PO QAM Rx Instructions: as directed azelastine 137 mcg (0.1 %) Aerosol,Glen 2 spray INTRANASAL BID pseudoephedrine-guaifenesin [Mucinex D] 60-600 mg Tablet Extended Release 12 Hr 1 tab PO BID PRN (Reason: Congestion) multivitamin Tablet 1 tab PO DAILY Nucala 100 mg Recon Soln 0 mg SUBCUT UD Rx Instructions: 1 injection every 4 weeks Spiriva Respimat 2.5 mcg/actuation mist 2 puff INHALATION QAM Anacin 400-32 mg Tablet See Rx Instructions .ROUTE .COMPLEX Rx Instructions: Per instructions on med list: "Take 1 tablet by mouth daily. Take 3 tablets by mouth every morning and 2 tablets by mouth at bedtime". Unable to verify with patient/family at this date/time which directions are correct. cyclobenzaprine 5 mg tablet 5 mg PO BID PRN (Reason: Muscle Spasm) duloxetine 60 mg capsule,delayed release(DR/EC) 60 mg PO DAILY gabapentin 100 mg capsule 300 mg PO HS atorvastatin 10 mg Tablet 10 mg PO QAM riboflavin (vitamin B2) [Vitamin B-2] 100 mg Tablet 400 mg PO QAM cholecalciferol (vitamin D3) [Vitamin D3] 25 mcg (1,000 unit) Capsule 25 mcg PO QAM omega-3 fatty acids-vitamin E 1,000 mg Capsule 1 cap PO QAM Discontinued meloxicam 7.5 mg tablet 7.5 mg PO DAILY hydrochlorothiazide 25 mg tablet 25 mg PO QAM hydralazine 25 mg tablet 25 mg PO Q4H PRN (Reason: BP over 160/100) losartan 25 mg tablet 50 mg PO QAM hydrochlorothiazide 12.5 mg capsule See Rx Instructions .ROUTE .COMPLEX Rx Instructions: Take 37.5mg by mouth in the morning on days of IVIG infusion. naproxen 500 mg tablet 500 mg PO BID Discharge Orders: Discharge Order (Routine); Ordered 10/03/23 Ordered By: Pastor Caban Admission Data Admit Date/Time: 09/12/23 03:27 Attending Provider: Pastor Caban Admit Provider: Nick Fraser Primary Care Provider: Ruel Fajardo Other Providers: Nick Fraser; Sammy Peck; [facility]; [facility]; Scott Brunner; Tee Rasheed; Blair Guerrero I.; Keyur Lynne II; Neema Garcia; Meek Charlton; Audi Gordon; Cherelle Watson; Neo Storm; Cesario Harvey; Guicho Stephenson; José Miguel Luu; Araceli Duke; Carole Lott; Yandel Ge; Ramin Marquez; Pamela Wright; Teri Villegas; Liliana Nelson; Mitra Walsh; Danica López; Francis Goncalves; Per Skinner; Mark Stephens; Parish Molina; Donna Molina; Marques Rico; Petra Vicente; Graeme Davalos; Theron Harmon; Tima Hale; Kwame Martines; Yasmin Johnson E; Meek Gaytan A; Araceli Gaytan; John Kidd; Poly Garcia; Jason Devlin; Meghan Fisher; Jaimee Morse; Yandel Ibarra; Sharita Menchaca A; Sheryl Taylor A; Alicia Chahal; Liane Gusman A; Nick Gusman V; Corky Lyons; Liliana Fang; Reinier Hager; Mel Villaseñor; Nick Yates; Cristiano Johnson; Sagar Barnard; Lali Zamarripa; Brea Calero; Nick Reveles; Kishore Collins; Katie Covington; Spencer Jones; Eugenia Marquez; Karlie Bowens; Jaycob Villafana; Ramin Martines; Adriane Weiss.; Michael Cavazos; David Arredondo; Chau Starks; Francis Law Jr; Tanya Patterson; Sonal Moreau A.; Eleni Walter.; Yandel Pineda; Parish Villatoro; Rossy Leal S.; Sonal Manley A.; Jer Junior; Cyril Guzman; George Gonzales; Ten [place]; Zenaida Mayorga; Chaya Dupont; Madeline Guaman; Josephine Giron; James Colmenares; Odalys Hayes
== END 2023-10-03 17:11 | DRG 871 ==
LOC: ED 21:09 → EDINP 09-12 03:27 → SUATTDRO 09-12 03:27 → EDINP 09-12 04:14 → 4W 09-12 12:01
DX: Z79.52 Long term (current) use of systemic steroids; B44.81 Allergic bronchopulmonary aspergillosis; N17.9 Acute kidney failure, unspecified; R65.20 Severe sepsis without septic shock; Z79.899 Other long term (current) drug therapy; M12.532 Traumatic arthropathy, left wrist; J98.6 Disorders of diaphragm; D64.9 Anemia, unspecified; R00.0 Tachycardia, unspecified; D84.9 Immunodeficiency, unspecified; I08.3 Combined rheumatic disorders of mitral, aortic and tricuspid valves; Z88.0 Allergy status to penicillin; A41.01 Sepsis due to Methicillin susceptible Staphylococcus aureus; G47.33 Obstructive sleep apnea (adult) (pediatric); J45.909 Unspecified asthma, uncomplicated; J96.01 Acute respiratory failure with hypoxia; I10 Essential (primary) hypertension; R60.0 Localized edema; G93.41 Metabolic encephalopathy; I25.10 Atherosclerotic heart disease of native coronary artery without angina pectoris; G61.81 Chronic inflammatory demyelinating polyneuritis; E87.6 Hypokalemia; E87.20 Acidosis, unspecified; R04.2 Hemoptysis; Z87.891 Personal history of nicotine dependence; Z79.82 Long term (current) use of aspirin; Z79.51 Long term (current) use of inhaled steroids; M12.531 Traumatic arthropathy, right wrist; J69.0 Pneumonitis due to inhalation of food and vomit; E87.1 Hypo-osmolality and hyponatremia; I16.9 Hypertensive crisis, unspecified

== ENCOUNTER 2025-01-30 04:18 | Inpatient (IN) ==
--- NOTE | 2025-01-30 04:50 | Emergency Department Note ---
Impression & Plan Fever, Left shoulder pain, Nausea, History of recent pneumonia ED Provider Note ED Provider Note NAME: ANKUSH LOPEZ AGE:69 SEX: Male : 1955 ARRIVES VIA: Private vehicle INFORMANT: Patient ED PROVIDER(s): Ping [place] DO CHIEF COMPLAINT: Left shoulder pain, fever, nausea HPI: This is a 69-year-old male who presents to the emergency department with family bedside due to concern for nausea, fever, and worsening left shoulder pain. 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 He is on chronic steroids. Patient also recently evaluated last month and diagnosed with pneumonia. He was given a course of azithromycin and cefdinir that was then followed with 2 weeks of doxycycline and an additional tapering course of steroids which she is still finishing. Patient states today he felt worse. He denies any change in bowel movements. He states he was very nauseated today but did not vomit. He did have a fever at home but took Tylenol prior to arrival. Patient feels he is staying well-hydrated. Patient states he does take a diuretic and he has not noted any change in his urine. PAST MEDICAL HISTORY:See Below PAST SURGICAL HISTORY:See Below FAMILY HISTORY:See Below SOCIAL HISTORY:See Below HOME MEDICATIONS:See Below ALLERGIES:See Below VITALS:See Below PHYSICAL EXAMINATION: GENERAL: alert, well appearing, well nourished, no distress, non-toxic EYE EXAM: normal conjunctiva, PERRL and EOM's grossly intact OROPHARYNX: no exudate, no erythema, lips, buccal mucosa, and tongue normal and mucous membranes are moist NECK: supple, no nuchal rigidity, no adenopathy, non-tender LUNGS: Clear to auscultation. Normal chest wall mechanics, no w/r/r HEART: no murmurs, S1 normal and S2 normal ABDOMEN: abdomen soft, non-tender, normo-active bowel sounds, no masses, no rebound or guarding. BACK: Back is symmetrical on inspection and there is no deformity, no midline tenderness, no CVA tenderness. SKIN: no rashes, petechiae, orbruising UPPER EXTREMITIES: upper extremities are grossly normal. FROM, nml pulses b/l. LOWER EXTREMITIES: No pitting edema. FROM, nml pulses b/l. NEURO EXAM: Normal sensorium, cranial nerves II-XII grossly intact, normal speech, no facial droop,nogross weakness of arms, no gross weakness of legs. Gross sensation intact. No ataxia. Vital Signs: reviewed and remarkable Differential Diagnosis: Pneumonia, septic arthritis, otitis, perforation, GI bleed, gastritis, pancreatitis, SBO, bacteremia/sepsis, failed outpatient management, endocarditis, pericarditis/myocarditis, viral syndrome, drug fever, as well as were considered MEDICAL DECISION MAKING: This is a 69 yo male who presents to the ER with concern for fever, nausea, and recent pneumonia. He admits to dyspnea on exertion and has still been on antibiotics. He takes steroids chronically and receives monthly IVIG due to CIDP. He was afebrile on arrival but had taken tylenol at home prior to arrive, he was also noted to be tachycardic. Labs drawn and sent, IV established, EKG and CXR performed and interpreted at bedside, and patient placed on telemetry. He was given IV cefepime due to concern for possible sepsis. I was given IVF >30 ml/kg based on IBW and was still tachycardic. Initial lactic acid elevated however was improved on repeat. Procal reassuring. Cxr suggestive of persistent infiltrate, pt sent for CT chest/a/p. Chest CT as read by outside rad with no focal consolidation, bronchitis noted. Unclear if failed outpatient tx given recent diagnosis or alternative etiology of recent pneumonia diagnosis such as fungal infection given patient is immunocompromised. Radiology also mentioned sclerotic lesions. Unclear if this is part of his CIDP dx or other etiology. Patient may benefit from ortho evaluation of his shoulder additionally given worsening pain and no prior evaluation. Patients HR improved with IVF and pain control, however still tachycardic. Given concern for evolving infection or failed outpatient treatment in an immunocompromised patient, case discussed with the hospitalist team for further evaluation and mgmt. Consultation(s): 0800: Discussed with Dr. Colmenares, [facility] hospitalist team, for additional evaluation and mgmt. ER Treatment Provided: See below Diagnostics Interpreted By Me: -ECG: Sinus tachycardia at 126, normal axis, normal intervals, no acute ST/T wave changes -Cardiac Monitoring: An order was placed for continuous cardiac monitoring. The monitor shows a rate of 118 with sinus tachycardia rhythm. -Laboratory studies: As stated above and show below. -Imaging studies: cxr: no cm, no pleural effusion, no wide mediastinum, ?RML infiltrate vs platelike atelectasis Triage Nursing Note Reviewed Prior/Outside Records Reviewed -discharge summary from August 2023 reviewed, prior ER visit from December reviewed Past Med/Surg History Problem List (Updated 01/31/25 @ 09:14 by Jayy Bond MD) Septic joint of left shoulder region Rotator cuff arthropathy of left shoulder Sepsis Left shoulder pain (Acute) Chronic inflammatory demyelinating neuropathy HTN (hypertension) Chronic sinusitis Long-term current use of steroids Allergic bronchopulmonary aspergillosis JOANN (obstructive sleep apnea) no device Asthma inhaler daily and prn Medical History (Updated 01/31/25 @ 09:14 by Jayy Bond MD) Benign essential HTN Ulcer of left knee Cellulitis Encounter for pre-operative examination Encounter for pre-operative examination Multiple fractures of ribs of right side Peripheral edema Tachycardia Abdominal pain Back pain Weakness Severe sepsis Osteoarthritis of wrists, bilateral Diminished pulses in lower extremity Acute hypoxemic respiratory failure Bilateral pneumonia Bacterial pneumonia Acute hypoxic respiratory failure Wrist arthritis Swelling of left wrist MSSA bacteremia Aortic stenosis Fever Nausea History of recent pneumonia SUSAN (acute kidney injury) Ambulates with cane Hernia Surgical History History of colonoscopy History of tooth extraction History of tonsillectomy Status post uvulopalatopharyngoplasty History of ear surgery mastoid sx S/P hernia surgery Family History Grandfather (Paternal) Family history of diabetes mellitus Grandfather (Maternal) Family history of diabetes mellitus Family history of esophageal cancer Other Asthma No family history of adverse response to anesthesia Social History (Updated 01/30/25 @ 12:49 by JOSEY Belle) Smoking Status: Never smoker Second Hand Exposure: No; Do You Dip or Chew Tobacco: No (quit 10 years ago); Hx Alcohol Use: Yes Alcohol type: beer Alcohol Intake Frequency: Monthly or Less Hx Substance Use: No Preferred Language: Lao Communication Ability: Effective Personal Lines Advisor Required: No Beliefs That Will Affect Care: None Current Living Situation: Spouse current occupational status: employed Feels Safe at Home: Yes Safety Concerns: Feels Safe At This Time Assistive Devices: Brace/Splint/Immobilizer and Cane Allergies Allergies Allergy/AdvReac Type Severity Reaction Status Date / Time amoxicillin AdvReac Intermediate made me Verified 01/30/25 08:14 feel niya Home Meds Home Medications Medication Instructions Recorded Confirmed albuterol sulfate 2.5 mg/3 mL 1 vial continuous nebulization Q4 08/13/18 01/30/25 (0.083 %) solution for nebulization PRN Shortness Of Breath Or Wheezing albuterol sulfate 90 mcg/actuation 2 puff inhalation Q4 PRN Shortness 08/13/18 01/30/25 aerosol inhaler Of Breath Or Wheezing fluticasone 500 mcg-salmeterol 50 1 puff inhalation BID 08/13/18 01/30/25 mcg/dose blistr powdr for inhalation metoprolol succinate 25 mg 25 mg PO QAM 08/13/18 01/30/25 tablet,extended release 24 hr mometasone 50 mcg/actuation nasal 2 spray intranasal DAILY 08/13/18 01/30/25 spray montelukast 10 mg tablet 10 mg PO QAM 08/13/18 01/30/25 cyclobenzaprine 5 mg tablet 5 mg PO BID PRN Muscle Spasm 09/15/21 01/30/25 duloxetine 60 mg capsule,delayed 60 mg PO DAILY 09/15/21 01/30/25 release gabapentin 100 mg capsule 100 - 300 mg PO HS 09/15/21 01/30/25 mepolizumab 100 mg subcutaneous 100 mg subcut UD 09/15/21 01/30/25 solution (Nucala) tiotropium bromide 2.5 2 puff inhalation QAM 09/15/21 01/30/25 mcg/actuation mist for inhalation (Spiriva Respimat) hydralazine 25 mg tablet 25 mg PO Q4H PRN When BP is over 01/30/25 01/30/25 160/100 potassium chloride 20 mEq 40 meq PO QAM 01/30/25 01/30/25 tablet,extended release(part/cryst) prednisone 10 mg tablet 10 mg PO DAILY 01/30/25 01/30/25 torsemide 10 mg tablet 10 mg PO QAM 01/30/25 01/30/25 Results & Data (ED) Vital Signs Vital Signs - 24 hr 01/30/25 04:21 01/30/25 04:51 01/30/25 05:10 Temperature 36.8 C Temperature Source Temporal Artery Scan Pulse Rate 126 H 128 H 128 H Pulse Rate from SpO2 Sensor Respiratory Rate 20 20 Respiratory Effort / Characteristics Non-Labored Spontaneous Respiratory Depth Normal Respiratory Pattern Regular Blood Pressure 124/77 130/88 Blood Pressure [Right Arm] Blood Pressure Mean 92 103 Blood Pressure Mean [Right Arm] Blood Pressure Position Sitting Pulse Oximetry 98 95 Oxygen Delivery Method Room Air Sepsis Recent Fever Within 48 Hours No Sepsis New/Unexplained Change in Mental Status No Sepsis Action Taken by Nursing No Action Required 01/30/25 05:11 01/30/25 05:22 01/30/25 05:33 Temperature 36.4 C 36.8 C Temperature Source Oral Oral Pulse Rate 125 H Pulse Rate from SpO2 Sensor Respiratory Rate 22 24 18 Respiratory Effort / Characteristics Non-Labored Respiratory Depth Normal Respiratory Pattern Regular Blood Pressure Blood Pressure [Right Arm] 108/89 131/79 Blood Pressure Mean Blood Pressure Mean [Right Arm] 95 96 Blood Pressure Position Pulse Oximetry 98 96 94 Oxygen Delivery Method Room Air Room Air Room Air Sepsis Recent Fever Within 48 Hours Sepsis New/Unexplained Change in Mental Status Sepsis Action Taken by Nursing 01/30/25 05:33 01/30/25 05:45 01/30/25 06:03 Temperature Temperature Source Pulse Rate 118 H 110 H 113 H Pulse Rate from SpO2 Sensor 118 H 113 H Respiratory Rate 20 20 20 Respiratory Effort / Characteristics Respiratory Depth Respiratory Pattern Blood Pressure 131/79 121/82 121/82 Blood Pressure [Right Arm] Blood Pressure Mean 96 106 95 Blood Pressure Mean [Right Arm] Blood Pressure Position Pulse Oximetry 95 95 94 Oxygen Delivery Method Sepsis Recent Fever Within 48 Hours Sepsis New/Unexplained Change in Mental Status Sepsis Action Taken by Nursing 01/30/25 06:15 01/30/25 06:47 01/30/25 07:15 Temperature Temperature Source Pulse Rate 114 H 111 H Pulse Rate from SpO2 Sensor 111 H Respiratory Rate 16 15 Respiratory Effort / Characteristics Respiratory Depth Respiratory Pattern Blood Pressure 124/73 114/84 112/87 Blood Pressure [Right Arm] Blood Pressure Mean 105 95 99 Blood Pressure Mean [Right Arm] Blood Pressure Position Pulse Oximetry 93 96 Oxygen Delivery Method Room Air Sepsis Recent Fever Within 48 Hours Sepsis New/Unexplained Change in Mental Status Sepsis Action Taken by Nursing Laboratory Data 01/31/25 08:11 01/31/25 08:11 Lab Results 01/30/25 01/30/25 01/30/25 Range/Units 04:52 04:55 07:23 WBC 18.16 H (4.8-10.8) K/ul RBC 3.69 L (4.70-6.10) M/uL Hgb 11.2 L (14.0-18.0) g/dl Hct 34.7 L (42.0-52.0) % MCV 94.0 (80.0-100.0) fL MCH 30.4 (25.0-34.0) pg MCHC 32.3 (32.0-36.0) g/dL RDW Std Deviation 50.5 H (36.4-46.3) fL RDW Coeff of Karishma 14.8 H (11.5-14.5) % Plt Count 462 H (130-400) K/uL MPV 9.3 L (9.4-12.4) fL Immature Gran % (Auto) 0.8 % Neut % (Auto) 79.3 % Lymph % (Auto) 10.6 % Granite % (Auto) 8.9 % Eos % (Auto) 0.1 % Baso % (Auto) 0.3 % Neut # (Auto) 14.41 H (1.40-6.50) K/uL Lymph # (Auto) 1.92 (1.20-3.40) K/uL Granite # (Auto) 1.62 H (0.11-0.59) K/uL Eos # (Auto) 0.01 (0.00-0.50) K/uL Baso # (Auto) 0.05 (0.00-0.20) K/uL Immature Gran # (Auto) 0.15 (0.01-0.20) K/uL PT 11.2 (9.0-12.0) Seconds INR 1.0 (0.9-1.1) VBG pH 7.36 (7.36-7.41) VBG pCO2 48 (38-50) mmHg VBG pO2 30 mmHg VBG HCO3 27 mmol/L VBG O2 Saturation < 60.0 % VBG Base Excess 1.0 mEq/L Sodium 135 L (136-145) mmol/L Potassium 4.4 (3.5-5.1) mmol/L Chloride 99 (98-107) mmol/L Carbon Dioxide 25 (21-32) mmol/L Anion Gap 11 (3-11) BUN 19 (6-23) mg/dl Creatinine 0.92 (0.6-1.4) mg/dl Est Cr Clr Drug Dosing 90.1 ml/min eGFR 89.49 BUN/Creatinine Ratio 20.7 H (10-20) Glucose 90 (70-99(Fasting)) mg/dl Lactate 3.0 H* (0.4-2.0) mmol/L Calcium 9.3 (8.6-10.3) mg/dl Magnesium 2.0 (1.7-2.4) mg/dl Total Bilirubin 0.7 (0.2-1.0) mg/dl Direct Bilirubin 0.1 (0-0.2) mg/dl AST 15 (13-39) U/L ALT 10 (7-52) U/L Alkaline Phosphatase 69 (34-104) U/L Troponin I High Sens 8.9 (0-20) pg/ml Total Protein 7.6 (6.0-8.3) gm/dl Albumin 3.2 L (3.4-5.0) gm/dl Lipase 24 (11-82) U/L Procalcitonin 0.31 (0-0.5) ng/ml TSH 1.072 (0.300-4.500) uIu/ml Random Cortisol 19.56 mcg/dl Urine Color Yellow Urine Appearance Clear (Clear) Urine pH 6.0 (4.5-7.5) Ur Specific [place] > 1.045 H (1.000-1.030) Urine Protein Negative (Negative) Urine Glucose (UA) Negative (Negative) Urine Ketones 1+ H (Negative) Urine Blood Negative (Negative) Urine Nitrite Negative (Negative) Urine Bilirubin Negative (Negative) Urine Urobilinogen Negative (Negative) Ur Leukocyte Esterase Negative (Negative) Urine Comment Adenovirus (PCR) Not Detected (NotDetected) Anaplasma Smear See Comment Babesia Smear See Comment B. pertussis DNA (PCR) Not Detected (NotDetected) B.parapertussis DNA PCR Not Detected (NotDetected) Lyme Disease Screen Negative (Negative) C. pneumoniae DNA (PCR) Not Detected (NotDetected) Coronavirus OC43 (PCR) Not Detected (NotDetected) Coronavirus HKU1 (PCR) Not Detected (NotDetected) Coronavirus 229E (PCR) Not Detected (NotDetected) SARS-CoV-2 (PCR) Not Detected (NotDetected) Coronavirus NL63 (PCR) Not Detected (NotDetected) Human Metapneumovir PCR Not Detected (NotDetected) Influenza Type A (PCR) Not Detected (NotDetected) Influenza Type B (PCR) Not Detected (NotDetected) M. pneumoniae (PCR) Not Detected (NotDetected) Parainfluenza 1 (PCR) Not Detected (NotDetected) Parainfluenza 2 (PCR) Not Detected (NotDetected) Parainfluenza 3 (PCR) Not Detected (NotDetected) Parainfluenza 4 (PCR) Not Detected (NotDetected) RSV (PCR) Not Detected (NotDetected) Entero/Rhino (PCR) Not Detected (NotDetected) 01/30/25 Range/Units 07:35 WBC (4.8-10.8) K/ul RBC (4.70-6.10) M/uL Hgb (14.0-18.0) g/dl Hct (42.0-52.0) % MCV (80.0-100.0) fL MCH (25.0-34.0) pg MCHC (32.0-36.0) g/dL RDW Std Deviation (36.4-46.3) fL RDW Coeff of Karishma (11.5-14.5) % Plt Count (130-400) K/uL MPV (9.4-12.4) fL Immature Gran % (Auto) % Neut % (Auto) % Lymph % (Auto) % Granite % (Auto) % Eos % (Auto) % Baso % (Auto) % Neut # (Auto) (1.40-6.50) K/uL Lymph # (Auto) (1.20-3.40) K/uL Granite # (Auto) (0.11-0.59) K/uL Eos # (Auto) (0.00-0.50) K/uL Baso # (Auto) (0.00-0.20) K/uL Immature Gran # (Auto) (0.01-0.20) K/uL PT (9.0-12.0) Seconds INR (0.9-1.1) VBG pH (7.36-7.41) VBG pCO2 (38-50) mmHg VBG pO2 mmHg VBG HCO3 mmol/L VBG O2 Saturation % VBG Base Excess mEq/L Sodium (136-145) mmol/L Potassium (3.5-5.1) mmol/L Chloride (98-107) mmol/L Carbon Dioxide (21-32) mmol/L Anion Gap (3-11) BUN (6-23) mg/dl Creatinine (0.6-1.4) mg/dl Est Cr Clr Drug Dosing ml/min eGFR BUN/Creatinine Ratio (10-20) Glucose (70-99(Fasting)) mg/dl Lactate 1.4 (0.4-2.0) mmol/L Calcium (8.6-10.3) mg/dl Magnesium (1.7-2.4) mg/dl Total Bilirubin (0.2-1.0) mg/dl Direct Bilirubin (0-0.2) mg/dl AST (13-39) U/L ALT (7-52) U/L Alkaline Phosphatase (34-104) U/L Troponin I High Sens (0-20) pg/ml Total Protein (6.0-8.3) gm/dl Albumin (3.4-5.0) gm/dl Lipase (11-82) U/L Procalcitonin (0-0.5) ng/ml TSH (0.300-4.500) uIu/ml Random Cortisol mcg/dl Urine Color Urine Appearance (Clear) Urine pH (4.5-7.5) Ur Specific [place] (1.000-1.030) Urine Protein (Negative) Urine Glucose (UA) (Negative) Urine Ketones (Negative) Urine Blood (Negative) Urine Nitrite (Negative) Urine Bilirubin (Negative) Urine Urobilinogen (Negative) Ur Leukocyte Esterase (Negative) Urine Comment Adenovirus (PCR) (NotDetected) Anaplasma Smear Babesia Smear B. pertussis DNA (PCR) (NotDetected) B.parapertussis DNA PCR (NotDetected) Lyme Disease Screen (Negative) C. pneumoniae DNA (PCR) (NotDetected) Coronavirus OC43 (PCR) (NotDetected) Coronavirus HKU1 (PCR) (NotDetected) Coronavirus 229E (PCR) (NotDetected) SARS-CoV-2 (PCR) (NotDetected) Coronavirus NL63 (PCR) (NotDetected) Human Metapneumovir PCR (NotDetected) Influenza Type A (PCR) (NotDetected) Influenza Type B (PCR) (NotDetected) M. pneumoniae (PCR) (NotDetected) Parainfluenza 1 (PCR) (NotDetected) Parainfluenza 2 (PCR) (NotDetected) Parainfluenza 3 (PCR) (NotDetected) Parainfluenza 4 (PCR) (NotDetected) RSV (PCR) (NotDetected) Entero/Rhino (PCR) (NotDetected) Administered Medications Duloxetine HCl (Duloxetine Hcl 60 Mg Cap) 60 mg PO DAILY RASHIDA Stop: 03/02/25 08:59 Last Admin: 01/31/25 09:41 Dose: 60 mg Documented By: JACKY Enoxaparin Sodium (Enoxaparin Inj 40 Mg/0.4 Ml Syr) 40 mg SQ QAM RASHIDA Stop: 03/01/25 10:44 Last Admin: 01/31/25 09:42 Dose: 40 mg Documented By: Admin: 01/30/25 12:30 Dose: 40 mg Documented By: AMB(2) Fluticasone Propionate (Fluticasone Propionate Na Spr 16 Gm Btl) 2 sprays LAKISHA DAILY RASHIDA Stop: 03/02/25 08:59 Last Admin: 01/31/25 10:11 Dose: Not Given Documented By: JACKY Fluticasone/Vilanterol (Fluticasone/Vilanterol 200/25mcg 14 Puffs/Inhaler) 1 puffs INH DAILY RASHIDA Stop: 03/01/25 10:59 Last Admin: 01/31/25 09:41 Dose: 1 puffs Documented By: Admin: 01/30/25 12:32 Dose: 1 puffs Documented By: AMB(2) Gabapentin (Gabapentin 100 Mg Cap) 100 mg PO HS RASHIDA Stop: 03/01/25 20:59 Last Admin: 01/31/25 20:47 Dose: 100 mg Documented By: Admin: 01/30/25 20:49 Dose: 100 mg Documented By: CR Piperacillin Sod/Tazobactam Sod (Zosyn) 4.5 gm in 100 mls @ 25 mls/hr IV Q8H RASHIDA; Protocol Stop: 02/04/25 15:59 Last Admin: 02/01/25 00:19 Dose: 25 mls/hr Documented By: Infusion: 01/31/25 21:09 Dose: Infused Documented By: Admin: 01/31/25 17:09 Dose: 25 mls/hr Documented By: Infusion: 01/31/25 13:47 Dose: Infused Documented By: Admin: 01/31/25 09:41 Dose: 25 mls/hr Documented By: Infusion: 01/31/25 05:27 Dose: Infused Documented By: Admin: 01/31/25 01:27 Dose: 25 mls/hr Documented By: Infusion: 01/30/25 21:15 Dose: Infused Documented By: Admin: 01/30/25 17:15 Dose: 25 mls/hr Documented By: AMB(2) Vancomycin HCl 1,250 mg/ (Sodium Chloride) 275 mls @ 200 mls/hr IV Q12H [facility] Stop: 03/14/25 17:59 Last Infusion: 01/31/25 18:32 Dose: Infused Documented By: Admin: 01/31/25 17:09 Dose: 200 mls/hr Documented By: AMB Ketorolac Tromethamine (Ketorolac Tromethamine 15 Mg/Ml Vial) 15 mg IV Q6H PRN PRN Reason: Moderate Pain (Scale 4, 5, 6) Stop: 02/04/25 12:59 Last Admin: 01/31/25 17:21 Dose: 15 mg Documented By: Admin: 01/31/25 10:03 Dose: 15 mg Documented By: Admin: 01/30/25 16:31 Dose: 15 mg Documented By: AMB(2) Lactobacillus Acidophilus (Advanced Probiotic 625 Mg Capsule) 1,250 mg PO DAILY [facility] Stop: 03/02/25 12:44 Last Admin: 01/31/25 13:40 Dose: 1,250 mg Documented By: AMB Metoprolol Succinate (Metoprolol Succ 25mg Ext Rel Tab) 25 mg PO QAM [facility] Stop: 03/02/25 08:59 Last Admin: 01/31/25 09:41 Dose: 25 mg Documented By: AMB Montelukast Sodium (Montelukast Sodium 10 Mg Tablet) 10 mg PO QAM [facility] Stop: 03/02/25 08:59 Last Admin: 01/31/25 09:41 Dose: 10 mg Documented By: AMB Potassium Chloride (Potassium Chloride Crtab 20 Meq Tabcr) 40 meq PO QAM [facility] Stop: 03/02/25 08:59 Last Admin: 01/31/25 09:40 Dose: 40 meq Documented By: AMB Prednisone (Prednisone 10 Mg Tablet) 10 mg PO DAILY [facility] Stop: 03/01/25 10:44 Last Admin: 01/31/25 09:41 Dose: 10 mg Documented By: Admin: 01/30/25 14:49 Dose: 10 mg Documented By: AMB(2) Torsemide (Torsemide 10 Mg Tab) 10 mg PO QAM [facility] Stop: 03/02/25 08:59 Last Admin: 01/31/25 09:41 Dose: 10 mg Documented By: JACKY Umeclidinium [place] (Umeclidinium [place] 62.5mcg/Blister 7 Puffs/Inhaler) 1 puffs [facility] Stop: 03/02/25 08:59 Last Admin: 01/31/25 09:42 Dose: 1 puffs Documented By: AMB Discontinued Medications Amlodipine Besylate (Amlodipine Besylate 5 Mg Tab) 5 mg PO ONE ONE Stop: 01/31/25 16:57 Last Admin: 01/31/25 17:21 Dose: 5 mg Documented By: JACKY Sodium Chloride (Nss) 1,000 mls @ 999 mls/hr IV .Q1H1M ONE Stop: 01/30/25 05:38 Last Infusion: 01/30/25 06:47 Dose: Infused Documented By: Admin: 01/30/25 05:15 Dose: 999 mls/hr Documented By: JUSTIN Cefepime HCl (Maxipime 2000mg) 2,000 mg in 20 mls @ 5 mls/min IV NOW STA; Protocol Stop: 01/30/25 04:51 Last Admin: 01/30/25 05:21 Dose: 5 mls/min Documented By: LNG Pantoprazole Sodium (Protonix) 40 mg in 10 mls @ 5 mls/min IV NOW ONE Stop: 01/30/25 04:51 Last Admin: 01/30/25 05:17 Dose: 5 mls/min Documented By: LNG Sodium Chloride (Nss) 1,000 mls @ 999 mls/hr IV .Q1H1M ONE Stop: 01/30/25 06:48 Last Infusion: 01/30/25 09:36 Dose: Infused Documented By: Admin: 01/30/25 06:47 Dose: 999 mls/hr Documented By: ANTELMO Acetaminophen (Ofirmev) 1,000 mg in 100 mls @ 400 mls/hr IV NOW STA Stop: 01/30/25 06:17 Last Infusion: 01/30/25 06:45 Dose: Infused Documented By: Admin: 01/30/25 06:15 Dose: 400 mls/hr Documented By: LNG Sodium Chloride (Nss) 1,000 mls @ 250 mls/hr IV .Q4H RASHIDA Stop: 02/02/25 06:44 Last Admin: 01/30/25 11:14 Dose: Not Given Documented By: AMB(2) Infusion: 01/30/25 11:13 Dose: Infused Documented By: AMB(2) Admin: 01/30/25 07:28 Dose: 250 mls/hr Documented By: MJE Sodium Chloride (Nss) 1,000 mls @ 100 mls/hr IV .Q10H RASHIDA Stop: 01/31/25 06:44 Last Infusion: 01/31/25 11:02 Dose: Infused Documented By: Admin: 01/31/25 01:29 Dose: 100 mls/hr Documented By: Infusion: 01/31/25 00:22 Dose: Infused Documented By: Infusion: 01/30/25 14:50 Dose: 100 mls/hr Documented By: AMB(2) Infusion: 01/30/25 12:58 Dose: 0 mls/hr Documented By: AMB(2) Admin: 01/30/25 12:30 Dose: 100 mls/hr Documented By: AMB(2) Piperacillin Sod/Tazobactam Sod (Zosyn) 4.5 gm in 100 mls @ 200 mls/hr IV NOW ONE; Protocol Stop: 01/30/25 11:29 Last Infusion: 01/30/25 12:58 Dose: Infused Documented By: AMB(2) Admin: 01/30/25 12:31 Dose: 200 mls/hr Documented By: AMB(2) Vancomycin HCl 2,500 mg/ (Sodium Chloride) 550 mls @ 180 mls/hr IV NOW ONE Stop: 01/31/25 00:48 Last Infusion: 01/31/25 01:12 Dose: Infused Documented By: Admin: 01/30/25 22:08 Dose: 180 mls/hr Documented By: CR Vancomycin HCl 750 mg/ Sodium (Chloride) 265 mls @ 200 mls/hr IV Q8H RASHIDA Stop: 01/31/25 12:00 Last Infusion: 01/31/25 13:48 Dose: Infused Documented By: Admin: 01/31/25 09:40 Dose: 200 mls/hr Documented By: AMB Lactated Ringer's (Lr) 1,000 mls @ 100 mls/hr IV .Q10H ONE Stop: 01/31/25 19:47 Last Admin: 01/31/25 12:19 Dose: Not Given Documented By: AMB Sodium Chloride (Nss) 1,000 mls @ 100 mls/hr IV .Q10H RASHIDA Stop: 01/31/25 22:29 Last Infusion: 01/31/25 23:51 Dose: Infused Documented By: Admin: 01/31/25 13:41 Dose: 100 mls/hr Documented By: AMB Ioversol (Optiray 320 125ml) 125 ml IV ONCE ONE Stop: 01/30/25 05:56 Last Admin: 01/30/25 05:55 Dose: 118 ml Documented By: ABDELRAHMAN Ketorolac Tromethamine (Ketorolac Tromethamine 15 Mg/Ml Vial) 10 mg IV NOW ONE Stop: 01/30/25 06:41 Last Admin: 01/30/25 06:49 Dose: 10 mg Documented By: KML Morphine Sulfate (Morphine Sulfate 4 Mg/Ml 1 Ml Carp\Vial) 4 mg IV NOW STA Stop: 01/30/25 05:50 Last Admin: 01/30/25 06:16 Dose: Not Given Documented By: LNG Imaging Data Radiologist's Impression: Chest X-Ray 01/30/25 04:39 EXAM: XR chest 1V portable CLINICAL HISTORY: Sepsis TECHNIQUE: X-ray image of the chest obtained in 1 frontal projection. COMPARISON: Prior X-ray dated 01/10/2025 for comparison. FINDINGS: Pulmonary Parenchyma: New finding of subtle haziness in right mid zone, acute infective/inflammatory changes cannot be ruled out. Unchanged atelectatic bands in right lower zone. No evidence of consolidation, collapse. No evidence of pleural effusion or pleural thickening. Heart and Mediastinum: Heart size and shape are normal. Aortic calcifications seen. No mediastinal widening or masses. No hilar or mediastinal lymphadenopathy. Bony Thorax: Bony thorax appears intact without fractures or deformities. Soft Tissues: Soft tissues overlying the chest wall are unremarkable. IMPRESSION: 1. New finding of subtle haziness in right mid zone, acute infective/inflammatory changes cannot be ruled out. 2. Unchanged atelectatic bands in right lower zone. Electronically signed by Wesley Oshea 01-30-2025 06:02 AM Abdomen/Pelvis CT 01/30/25 05:13 EXAM: CT abd pelvis IV con only CLINICAL HISTORY: Fever, nausea. TECHNIQUE: CT of the abdomen and pelvis was performed, with the following protocol: axial images with, and reconstructed coronal and sagittal images. 118ml Opitray-320mg/ml Intravenous contrast was administered. One of the following dose reduction techniques was utilized for this exam: Automated exposure control, adjustment of the mA and/or kV according to patient size, and use of iterative reconstruction. COMPARISON: None. FINDINGS: Abdomen: Liver: Normal in size, shape, and density. No focal lesions, cysts, or masses were identified. Hepatic vasculature and biliary ducts are unremarkable. Gallbladder and Biliary System: The gallbladder is normal in size and shape. No wall thickening, pericholecystic fluid, or gallstones were identified. The common bile duct is normal in caliber without dilation. Pancreas: Pancreatic head, body, and tail are visualized and appear normal in size and density. No pancreatic masses or calcifications were noted. The pancreatic duct is not dilated. Spleen: Normal in size, shape, and density. No splenic lesions or masses were identified. Appendix: The appendix is not visualized. Kidneys and Adrenal Glands: Duplex left kidney. Both kidneys are normal in size, shape, and position. Cortical thickness is within normal limits. No renal calculi or hydronephrosis. Adrenal glands are unremarkable with no evidence of masses or hyperplasia. Pelvis: Urinary Bladder: Normal in contour and wall thickness. No intraluminal lesions identified. Prostate: Mildly enlarged in size with small calcifications. No focal lesions or masses were identified. Seminal Vesicles: Normal in size and appearance. No abnormalities noted. Rectum and Sigmoid Colon: Normal wall thickness and no evidence of mass. Peritoneal and Retroperitoneal Structures: No free fluid or abnormal fluid collections were identified within the abdomen or pelvis. No lymphadenopathy was noted. Advanced vascular calcifications of the aorta and its main branches. Bowel: The visualized bowel loops are normal in caliber and appearance. No evidence of bowel obstruction or wall thickening. Bones and Soft Tissues: Pelvic bones and soft tissues are unremarkable. No fractures or abnormal masses were identified. Right lower abdominal wall and inguinal mesh (post-hernia repair). Small left inguinal hernia containing fat. Mild atelectasis in the lower lung lobes. Advanced lumbar spondylotic changes with multilevel posterior disc osteophyte complexes. Lower thoracic vertebrae multiple sclerotic lesions (MRI or bone scan is advised if clinically indicated). Multiple lower ribs old fractures. IMPRESSION: 1. No evidence of acute intra-abdominal or pelvic pathology. 2. Lower thoracic vertebrae multiple sclerotic lesions (MRI or bone scan is advised if clinically indicated). 3. Other findings as described. Electronically signed by Wesley Oshea 01-30-2025 07:19 AM Chest CTA 01/30/25 05:13 EXAM: CT angio chest PE protocol CLINICAL HISTORY: PE TECHNIQUE: Contiguous 3.[address] angiographic images of the chest were acquired with the administration of intravenous contrast. Coronal and sagittal reconstructions were obtained. One of these 3D techniques was utilized: Maximum Intensity Pixel (MIP), 3D Reconstructed Images, Volume Rendered Images, Surface Shaded Rendering. One of the following dose reduction techniques were utilized for this exam: Automated exposure control, adjustment of the mA and/or kV according to patient size, and use of iterative reconstruction. COMPARISON: Prior X-ray dated 01/30/2025. FINDINGS: Aorta: Atherosclerotic wall calcifications in aorta. The thoracic aorta is normal in caliber. No evidence of aneurysm, dissection. Aortic arch and descending thoracic aorta are unremarkable. Pulmonary Arteries: Pulmonary arteries are normal in size and opacification. No evidence of pulmonary embolism. No stenosis or filling defects. Superior Vena Cava (SVC) and Inferior Vena Cava (IVC): Normal opacification and caliber. No evidence of thrombus or obstruction. Coronary Arteries: Coronary artery disease. Mediastinum: No mediastinal mass or lymphadenopathy. Normal appearance of the thymus. Heart: Normal size and morphology of the heart. Left ventricle myocardial hypertrophy seen. No pericardial effusion. Lungs: Few atelectatic bands in right middle lobe. Mild subpleural interstitial thickening and reticulations in posterior segments of both lower lobes. Wall thickening in segmental/subsegmental bronchi in both lower lobes likely bronchitis. No evidence of consolidation, nodules, or masses. No pleural effusion or thickening. Bones: Old healed fractures in multiple bilateral ribs. Spondylotic changes in thoracic spine. Multiple sclerotic lesions in lower thoracic vertebral bodies Normal alignment and bone density. Soft Tissues: Normal appearance of rest of visualized soft tissues. IMPRESSION: 1. No evidence of pulmonary embolism. 2. Few atelectatic bands in right middle lobe. 3. Mild subpleural interstitial thickening and reticulations in posterior segments of both lower lobes. 4. Wall thickening in segmental/subsegmental bronchi in both lower lobes likely bronchitis. 5. Subtle haziness in right mid zone in prior X-ray not appreciated in CT likely artefactual. 6. Cardiac left ventricle myocardial hypertrophy. 7. Multiple sclerotic lesions in lower thoracic vertebral bodies, need clinical correlation if needed, further work-up. Electronically signed by Wesley Oshea 01-30-2025 07:02 AM Discharge Plan Visit Data Chief Complaint: Abdominal Pain Stated Complaint: ABD PAIN,ARM PAIN,VOMITING,SOB SOMETIMES ED Provider: Ping Groves Discharge Problem: Fever, Left shoulder pain, Nausea, History of recent pneumonia Patient Disposition: Admitted As Inpatient Condition: Fair Discharge Instructions Interventions: ED Discharge Assessment Last Done: 01/30/25 10:07
[2025-01-30 05:15] LABS: Base Excess VBG 1.0 mEq/L; HCO3 VBG 27 mmol/L; Oxygen Saturation VBG < 60.0 %; PCO2 VBG 48 mmHg (38-50); PO2 VBG 30 mmHg; pH VBG 7.36 (7.36-7.41)
[2025-01-30] MEDS: SODIUM CHLORIDE 0.9% 1,000 ML IV ONE ×2 (05:15→06:47)
[2025-01-30] MEDS: PANTOprazole 40 MG/10 ML SYR IV ONE (05:17)
[2025-01-30 05:19] LABS: Hematocrit (blood only) 34.7 % (42.0-52.0); Hemoglobin 11.2 g/dl (14.0-18.0); Immature Granulocytes # (auto) 0.15 K/uL (0.01-0.20); Immature Granulocytes % (auto) 0.8 %; Mean Corpuscular Hemoglobin 30.4 pg (25.0-34.0); Mean Corpuscular Volume 94.0 fL (80.0-100.0); Platelet Count 462 K/uL (130-400); RDW Standard Deviation 50.5 fL (36.4-46.3); Red Blood Count 3.69 M/uL (4.70-6.10); White Blood Count 18.16 K/ul (4.8-10.8)
[2025-01-30] MEDS: CEFEPIME 2000MG 2,000 MG/20 ML SYR IV STA (05:21)
[2025-01-30 05:37] LABS: Alanine Aminotransferase 10.0 U/L (7-52); Alkaline Phosphatase 69.0 U/L (34-104); Anion Gap 11.0 (3-11); Bilirubin,Total 0.7 mg/dl (0.2-1.0); Blood Urea Nitrogen 19.0 mg/dl (6-23); Calcium 9.3 mg/dl (8.6-10.3); Carbon Dioxide 25.0 mmol/L (21-32); Chloride 99.0 mmol/L (98-107); Creatinine Clr Calc Pharmacy 90.1 ml/min; Glucose 90.0 mg/dl (70-99(Fasting)); Magnesium 2.0 mg/dl (1.7-2.4); Potassium 4.4 mmol/L (3.5-5.1); Sodium 135.0 mmol/L (136-145); Total Protein 7.6 gm/dl (6.0-8.3)
[2025-01-30 05:43] LABS: Procalcitonin 0.31 ng/ml (0-0.5)
[2025-01-30 05:48] LABS: INR 1.0 (0.9-1.1); Prothrombin Time 11.2 Seconds (9.0-12.0)
[2025-01-30] MEDS: OPTIRAY 320 125ml IV ONE (05:55)
--- NOTE | 2025-01-30 06:02 | XRay Report ---
EXAM: XR chest 1V portable CLINICAL HISTORY: Sepsis TECHNIQUE: X-ray image of the chest obtained in 1 frontal projection. COMPARISON: Prior X-ray dated 01/10/2025 for comparison. FINDINGS: Pulmonary Parenchyma: New finding of subtle haziness in right mid zone, acute infective/inflammatory changes cannot be ruled out. Unchanged atelectatic bands in right lower zone. No evidence of consolidation, collapse. No evidence of pleural effusion or pleural thickening. Heart and Mediastinum: Heart size and shape are normal. Aortic calcifications seen. No mediastinal widening or masses. No hilar or mediastinal lymphadenopathy. Bony Thorax: Bony thorax appears intact without fractures or deformities. Soft Tissues: Soft tissues overlying the chest wall are unremarkable. IMPRESSION: 1. New finding of subtle haziness in right mid zone, acute infective/inflammatory changes cannot be ruled out. 2. Unchanged atelectatic bands in right lower zone. Electronically signed by Wesley Oshea 01-30-2025 06:02 AM
[2025-01-30 06:03] LABS: Chlamydia pneumoniae PCR Not Detected (NotDetected); Coronavirus 229E PCR Not Detected (NotDetected); Coronavirus CoV-2 (COVID19)PCR Not Detected (NotDetected); Coronavirus HKU1 PCR Not Detected (NotDetected); Coronavirus NL63 PCR Not Detected (NotDetected); Coronavirus OC43PCR Not Detected (NotDetected); Human Metapneumovirus PCR Not Detected (NotDetected); Parainfluenza Virus 1 PCR Not Detected (NotDetected); Parainfluenza Virus 2 PCR Not Detected (NotDetected); Parainfluenza Virus 3 PCR Not Detected (NotDetected); Parainfluenza Virus 4 PCR Not Detected (NotDetected); Respiratory Syncytial VirusPCR Not Detected (NotDetected); Rhinovirus/Enterovirus PCR Not Detected (NotDetected)
[2025-01-30 06:08] LABS: Lyme Screen Rflx Confirmation Negative (Negative)
[2025-01-30] MEDS: ACETAMINOPHEN 1,000 MG/100 ML VIAL IV STA (06:15)
[2025-01-30] MEDS: MoRPHine SULFATE 4 MG/ML 1 ML CARP\\VIAL IV STA (06:16)
[2025-01-30 06:18] LABS: Lipase 24.0 U/L (11-82)
[2025-01-30] MEDS: KETOROLAC TROMETHAMINE 15 MG/ML VIAL IV ONE (06:49)
--- NOTE | 2025-01-30 07:03 | CT Scan Report ---
EXAM: CT angio chest PE protocol CLINICAL HISTORY: PE TECHNIQUE: Contiguous 3.[address] angiographic images of the chest were acquired with the administration of intravenous contrast. Coronal and sagittal reconstructions were obtained. One of these 3D techniques was utilized: Maximum Intensity Pixel (MIP), 3D Reconstructed Images, Volume Rendered Images, Surface Shaded Rendering. One of the following dose reduction techniques were utilized for this exam: Automated exposure control, adjustment of the mA and/or kV according to patient size, and use of iterative reconstruction. COMPARISON: Prior X-ray dated 01/30/2025. FINDINGS: Aorta: Atherosclerotic wall calcifications in aorta. The thoracic aorta is normal in caliber. No evidence of aneurysm, dissection. Aortic arch and descending thoracic aorta are unremarkable. Pulmonary Arteries: Pulmonary arteries are normal in size and opacification. No evidence of pulmonary embolism. No stenosis or filling defects. Superior Vena Cava (SVC) and Inferior Vena Cava (IVC): Normal opacification and caliber. No evidence of thrombus or obstruction. Coronary Arteries: Coronary artery disease. Mediastinum: No mediastinal mass or lymphadenopathy. Normal appearance of the thymus. Heart: Normal size and morphology of the heart. Left ventricle myocardial hypertrophy seen. No pericardial effusion. Lungs: Few atelectatic bands in right middle lobe. Mild subpleural interstitial thickening and reticulations in posterior segments of both lower lobes. Wall thickening in segmental/subsegmental bronchi in both lower lobes likely bronchitis. No evidence of consolidation, nodules, or masses. No pleural effusion or thickening. Bones: Old healed fractures in multiple bilateral ribs. Spondylotic changes in thoracic spine. Multiple sclerotic lesions in lower thoracic vertebral bodies Normal alignment and bone density. Soft Tissues: Normal appearance of rest of visualized soft tissues. IMPRESSION: 1. No evidence of pulmonary embolism. 2. Few atelectatic bands in right middle lobe. 3. Mild subpleural interstitial thickening and reticulations in posterior segments of both lower lobes. 4. Wall thickening in segmental/subsegmental bronchi in both lower lobes likely bronchitis. 5. Subtle haziness in right mid zone in prior X-ray not appreciated in CT likely artefactual. 6. Cardiac left ventricle myocardial hypertrophy. 7. Multiple sclerotic lesions in lower thoracic vertebral bodies, need clinical correlation if needed, further work-up. Electronically signed by Wesley Oshea 01-30-2025 07:02 AM
--- NOTE | 2025-01-30 07:19 | CT Scan Report ---
EXAM: CT abd pelvis IV con only CLINICAL HISTORY: Fever, nausea. TECHNIQUE: CT of the abdomen and pelvis was performed, with the following protocol: axial images with, and reconstructed coronal and sagittal images. 118ml Opitray-320mg/ml Intravenous contrast was administered. One of the following dose reduction techniques was utilized for this exam: Automated exposure control, adjustment of the mA and/or kV according to patient size, and use of iterative reconstruction. COMPARISON: None. FINDINGS: Abdomen: Liver: Normal in size, shape, and density. No focal lesions, cysts, or masses were identified. Hepatic vasculature and biliary ducts are unremarkable. Gallbladder and Biliary System: The gallbladder is normal in size and shape. No wall thickening, pericholecystic fluid, or gallstones were identified. The common bile duct is normal in caliber without dilation. Pancreas: Pancreatic head, body, and tail are visualized and appear normal in size and density. No pancreatic masses or calcifications were noted. The pancreatic duct is not dilated. Spleen: Normal in size, shape, and density. No splenic lesions or masses were identified. Appendix: The appendix is not visualized. Kidneys and Adrenal Glands: Duplex left kidney. Both kidneys are normal in size, shape, and position. Cortical thickness is within normal limits. No renal calculi or hydronephrosis. Adrenal glands are unremarkable with no evidence of masses or hyperplasia. Pelvis: Urinary Bladder: Normal in contour and wall thickness. No intraluminal lesions identified. Prostate: Mildly enlarged in size with small calcifications. No focal lesions or masses were identified. Seminal Vesicles: Normal in size and appearance. No abnormalities noted. Rectum and Sigmoid Colon: Normal wall thickness and no evidence of mass. Peritoneal and Retroperitoneal Structures: No free fluid or abnormal fluid collections were identified within the abdomen or pelvis. No lymphadenopathy was noted. Advanced vascular calcifications of the aorta and its main branches. Bowel: The visualized bowel loops are normal in caliber and appearance. No evidence of bowel obstruction or wall thickening. Bones and Soft Tissues: Pelvic bones and soft tissues are unremarkable. No fractures or abnormal masses were identified. Right lower abdominal wall and inguinal mesh (post-hernia repair). Small left inguinal hernia containing fat. Mild atelectasis in the lower lung lobes. Advanced lumbar spondylotic changes with multilevel posterior disc osteophyte complexes. Lower thoracic vertebrae multiple sclerotic lesions (MRI or bone scan is advised if clinically indicated). Multiple lower ribs old fractures. IMPRESSION: 1. No evidence of acute intra-abdominal or pelvic pathology. 2. Lower thoracic vertebrae multiple sclerotic lesions (MRI or bone scan is advised if clinically indicated). 3. Other findings as described. Electronically signed by Wesley Oshea 01-30-2025 07:19 AM
[2025-01-30] MEDS: SODIUM CHLORIDE 0.9% 1,000 ML IV SCH ×2 (07:28→12:30)
[2025-01-30 07:48] LABS: Appearance Urine Clear (Clear); Glucose Urine UA Negative (Negative)
--- NOTE | 2025-01-30 08:09 | History & Physical Report ---
Date of Service January 30, 2025 History of Present Illness Primary Care Provider: Shanna Conner MD Allergies Allergy/AdvReac Type Severity Reaction Status Date / Time amoxicillin AdvReac Intermediate made me Verified 09/12/23 08:49 feel weird Home Medications Medication Instructions Recorded Confirmed Type albuterol sulfate 2.5 mg/3 mL 1 vial continuous nebulization Q4 08/13/18 01/10/25 History (0.083 %) solution for nebulization PRN Shortness Of Breath Or Wheezing albuterol sulfate 90 mcg/actuation 2 puff inhalation Q4 PRN Shortness 08/13/18 01/10/25 History aerosol inhaler Of Breath Or Wheezing fluticasone 500 mcg-salmeterol 50 1 puff inhalation BID 08/13/18 01/10/25 History mcg/dose blistr powdr for inhalation metoprolol succinate 25 mg 25 mg PO UD 08/13/18 01/10/25 History tablet,extended release 24 hr mometasone 50 mcg/actuation nasal 2 spray intranasal DAILY 08/13/18 01/10/25 History spray montelukast 10 mg tablet 10 mg PO QAM 08/13/18 01/10/25 History azelastine 137 mcg (0.1 %) nasal 2 spray intranasal BID 05/10/20 01/10/25 History spray prednisone 10 mg tablet 10 - 30 mg PO QAM 05/10/20 01/10/25 History pseudoephedrine-guaifenesin ER 60 1 tab PO BID PRN Congestion 05/10/20 01/10/25 History mg-600 mg tablet,extend release 12hr (Mucinex D) cyclobenzaprine 5 mg tablet 5 mg PO BID PRN Muscle Spasm 09/15/21 01/10/25 History duloxetine 60 mg capsule,delayed 60 mg PO DAILY 09/15/21 01/10/25 History release gabapentin 100 mg capsule 300 mg PO HS 09/15/21 01/10/25 History mepolizumab 100 mg subcutaneous 100 mg subcut UD 09/15/21 01/10/25 History solution (Nucala) multivitamin 1 tab PO DAILY 09/15/21 01/10/25 History tiotropium bromide 2.5 2 puff inhalation QAM 09/15/21 01/10/25 History mcg/actuation mist for inhalation (Spiriva Respimat) atorvastatin 10 mg tablet 10 mg PO QAM 09/12/23 01/10/25 History acetaminophen 500 mg tablet 500 mg PO Q6H PRN fever or pain 10/03/23 01/10/25 Rx (Tylenol Extra Strength) #30 tabs torsemide 60 mg tablet 60 mg PO DAILY #30 tabs 10/03/23 01/10/25 Rx cyanocobalamin (vitamin B-12) 0 mg PO DAILY 01/10/25 01/10/25 History Past Med/Surg History Problem List (Updated 01/30/25 @ 08:01 by Ping Groves DO) History of recent pneumonia (Acute) Nausea (Acute) Fever (Acute) Left shoulder pain (Acute) Chronic inflammatory demyelinating neuropathy Aortic stenosis MSSA bacteremia Swelling of left wrist Wrist arthritis Acute hypoxic respiratory failure Bacterial pneumonia Bilateral pneumonia Acute hypoxemic respiratory failure Diminished pulses in lower extremity HTN (hypertension) Osteoarthritis of wrists, bilateral Severe sepsis Weakness (Acute) Back pain (Acute) Abdominal pain (Acute) Tachycardia (Acute) Peripheral edema (Acute) Multiple fractures of ribs of right side (Acute) Encounter for pre-operative examination Encounter for pre-operative examination Cellulitis (Acute) Ulcer of left knee (Acute) Chronic sinusitis Long-term current use of steroids Allergic bronchopulmonary aspergillosis JOANN (obstructive sleep apnea) no device Asthma inhaler daily and prn Benign essential HTN Medical History SUSAN (acute kidney injury) Ambulates with cane Hernia Surgical History History of colonoscopy History of tooth extraction History of tonsillectomy Status post uvulopalatopharyngoplasty History of ear surgery mastoid sx S/P hernia surgery Family History Grandfather (Paternal) Family history of diabetes mellitus Grandfather (Maternal) Family history of diabetes mellitus Family history of esophageal cancer Other Asthma No family history of adverse response to anesthesia Social History Smoking Status: Former smoker Tobacco Type: Cigarettes Second Hand Exposure: No; Do You Dip or Chew Tobacco: No (quit 10 years ago); Hx Alcohol Use: Yes Alcohol type: beer Hx Substance Use: No Preferred Language: Bengali Communication Ability: Effective Cook Tortilla Required: No Beliefs That Will Affect Care: None Current Living Situation: Spouse current occupational status: employed Feels Safe at Home: Yes Assistive Devices: Cane Results & Data Results & Data Vital Signs (Past 12 Hours) Vital Signs Temp Pulse Resp BP BP Pulse Ox O2 Del Method 01/30/25 07:15 111 H 15 112/87 96 Room Air 01/30/25 06:47 114/84 01/30/25 06:15 114 H 16 124/73 93 01/30/25 06:03 113 H 20 121/82 94 01/30/25 05:45 110 H 20 121/82 95 01/30/25 05:33 118 H 20 131/79 95 01/30/25 05:33 36.8 C 18 131/79 94 Room Air 01/30/25 05:22 36.4 C 24 108/89 96 Room Air 01/30/25 05:11 125 H 22 98 Room Air 01/30/25 05:10 128 H 20 130/88 95 01/30/25 04:51 128 H 01/30/25 04:21 36.8 C 126 H 20 124/77 98 Room Air
--- NOTE | 2025-01-30 08:20 | Electrocardiogram Report ---
Test Reason : Blood Pressure : */* mmHG Vent. Rate : 126 BPM Atrial Rate : 126 BPM P-R Int : 152 ms QRS Dur : 74 ms QT Int : 294 ms P-R-T Axes : 17 30 75 degrees QTcB Int : 425 ms Sinus tachycardia Nonspecific T wave abnormality Abnormal ECG When compared with ECG of 10-Jan-2025 10:59, No significant change was found Confirmed by Chau Duque ([id number]) on 01/30/2025 8:20:31 AM Referred By: Confirmed By: Chau Duque
--- NOTE | 2025-01-30 08:42 | History & Physical Report ---
Date of Service January 30, 2025 Assessment & Plan (1) Sepsis: (2) Left shoulder pain: (3) Chronic inflammatory demyelinating neuropathy: (4) Long-term current use of steroids: (5) Asthma: (6) Allergic bronchopulmonary aspergillosis: (7) HTN (hypertension): Plan 69 year old male with PMH significant for severe persistent asthma, allergic bronchopulmonary aspergillosis, JOANN not on CPAP, chronic sinusitis, hypertension, mild aortic valve stenosis, osteoporosis, chronic inflammatory demyelinating polyneuropathy, and hearing loss of right ear who presented to the ED on 01/30/2025 with fevers, left shoulder pain, and nausea and is admitted for possible sepsis. Possible sepsis Presenting with fevers, leukocytosis 18K, tachycardia, tachypnea Initial lactate 3.0 downtrended to 1.4 CTAP with no evidence of acute intra-abdominal or pelvic pathology; lower thoracic vertebrae multiple sclerotic lesions Chest CTA no PE; atelectatic bands in right middle lobe; mild subpleural interstitial thickening in posterior segments of both lower lobes; wall t hickening in bronchi in both lower lobes likely bronchitis; cardiac LV myocardial hypertrophy Lyme screen negative Follow blood cultures Received cefepime in the ED - switched to Zosyn Continue MIVF Left shoulder pain Patient with pain x1 month, limited ROM, swelling and tenderness at left shoulder CT revealed no fracture or dislocation; severe glenohumeral OA with chronic remodeling; moderate to large glenohumeral joint effusion with synovial calcifications, intra-articular debris with calcified loose bodies Pain control with tylenol (mild), toradol (moderate), morphine (severe) Orthopedics consulted CIDP Follows with [facility] Neurology last seen Jul 2024 Receives IVIG monthly (x4 days in a row once a month) - next due 02/03-02/06 Continue duloxetine and gabapentin CTAP and chest CTA appreciated lower thoracic vertebrae multiple sclerotic lesions Could be due to CTIP but other differentials include MS, POEMS (given polyneuropathy, LVH, petechial rash), osteosclerotic myeloma with neuropathy MS panel and electrophoresis ordered 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 Continue prednisone for CIDP Obtain random and am cortisol to assess for adrenal insufficiency Severe persistent asthma Allergic bronchopulmonary aspergillosis Chronic sinusitis/rhinitis Follows with [facility] Pulmonology last seen August 2024 Biofire negative VBG WNL Chest CTA no PE; atelectatic bands in right middle lobe; mild subpleural interstitial thickening in posterior segments of both lower lobes; wall thickening in bronchi in both lower lobes likely bronchitis; cardiac LV myocardial hypertrophy Continue inhalers, montelukast and mometasone Pulmonology consulted Hypertension Continue torsemide DVT Prophylaxis: SQ lovenox Code Status: FULL CODE - As per discussion at bedside with the patient. PCP: Shanna Conner Disposition: admit to PCU Patient seen in collaboration with Dr Colmenares. Please see addendum. I spent a total of 70 minutes coordinating, documenting and providing care for this patient excluding time spent in the performance of separately billed services or time spent by another provider/QHP. Admission and Anticipated Discharge Date Admission Date: 01/30/2025 History of Present Illness Chief Complaint: fever, left shoulder pain, nausea Primary Care Provider: Shanna Conner MD 69 year old male with PMH significant for severe persistent asthma, allergic bronchopulmonary aspergillosis, JOANN not on CPAP, chronic sinusitis, hypertension, mild aortic valve stenosis, osteoporosis, chronic inflammatory demyelinating polyneuropathy, and hearing loss of right ear who presented to the ED on 01/30/2025 with fever, left shoulder pain and nausea. Patient reports that he has been having left shoulder pain for the last month. He denies any injury or overuse but it has gotten progressively worse and he is hardly able to move his left arm because of it. He has also felt nauseous, cold, and tired for the last 2 days. He was evaluated in our ED on 01/10/2025 and treated for pneumonia with a course of cefdinir and azithromycin. He followed up with his PCP last week with diffuse joint pain and petechial rash and was prescribed doxycycline for possible vasculitis/lyme disease. Patient reports he felt worse since taking doxy - attributes fatigue and nausea to this - and stopped taking it yesterday with 3 days left. His took his temperature overnight and it was 101, which prompted them to seek evaluation in the ED. He denies headaches, dizziness, cough, sputum, cold symptoms, chest pain, SOB, abdominal pain, vomiting, dysuria, constipation/diarrhea. Denies recent falls. 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 Denies any injuries from falls. Allergies Allergy/AdvReac Type Severity Reaction Status Date / Time amoxicillin AdvReac Intermediate made me Verified 01/30/25 08:14 feel weird Home Medications Medication Instructions Recorded Confirmed Type albuterol sulfate 2.5 mg/3 mL 1 vial continuous nebulization Q4 08/13/18 01/30/25 History (0.083 %) solution for nebulization PRN Shortness Of Breath Or Wheezing albuterol sulfate 90 mcg/actuation 2 puff inhalation Q4 PRN Shortness 08/13/18 01/30/25 History aerosol inhaler Of Breath Or Wheezing fluticasone 500 mcg-salmeterol 50 1 puff inhalation BID 08/13/18 01/30/25 History mcg/dose blistr powdr for inhalation metoprolol succinate 25 mg 25 mg PO QAM 08/13/18 01/30/25 History tablet,extended release 24 hr mometasone 50 mcg/actuation nasal 2 spray intranasal DAILY 08/13/18 01/30/25 History spray montelukast 10 mg tablet 10 mg PO QAM 08/13/18 01/30/25 History cyclobenzaprine 5 mg tablet 5 mg PO BID PRN Muscle Spasm 09/15/21 01/30/25 History duloxetine 60 mg capsule,delayed 60 mg PO DAILY 09/15/21 01/30/25 History release gabapentin 100 mg capsule 100 - 300 mg PO HS 09/15/21 01/30/25 History mepolizumab 100 mg subcutaneous 100 mg subcut UD 09/15/21 01/30/25 History solution (Nucala) tiotropium bromide 2.5 2 puff inhalation QAM 09/15/21 01/30/25 History mcg/actuation mist for inhalation (Spiriva Respimat) hydralazine 25 mg tablet 25 mg PO Q4H PRN When BP is over 01/30/25 01/30/25 History 160/100 potassium chloride 20 mEq 40 meq PO QAM 01/30/25 01/30/25 History tablet,extended release(part/cryst) prednisone 10 mg tablet 10 mg PO DAILY 01/30/25 01/30/25 History torsemide 10 mg tablet 10 mg PO QAM 01/30/25 01/30/25 History Past Med/Surg History Problem List (Updated 01/30/25 @ 12:49 by JOSEY Belle) Sepsis Left shoulder pain (Acute) Chronic inflammatory demyelinating neuropathy HTN (hypertension) Chronic sinusitis Long-term current use of steroids Allergic bronchopulmonary aspergillosis JOANN (obstructive sleep apnea) no device Asthma inhaler daily and prn Medical History (Updated 01/30/25 @ 12:49 by JOSEY Belle) Benign essential HTN Ulcer of left knee Cellulitis Encounter for pre-operative examination Encounter for pre-operative examination Multiple fractures of ribs of right side Peripheral edema Tachycardia Abdominal pain Back pain Weakness Severe sepsis Osteoarthritis of wrists, bilateral Diminished pulses in lower extremity Acute hypoxemic respiratory failure Bilateral pneumonia Bacterial pneumonia Acute hypoxic respiratory failure Wrist arthritis Swelling of left wrist MSSA bacteremia Aortic stenosis Fever Nausea History of recent pneumonia SUSAN (acute kidney injury) Ambulates with cane Hernia Surgical History History of colonoscopy History of tooth extraction History of tonsillectomy Status post uvulopalatopharyngoplasty History of ear surgery mastoid sx S/P hernia surgery Family History Grandfather (Paternal) Family history of diabetes mellitus Grandfather (Maternal) Family history of diabetes mellitus Family history of esophageal cancer Other Asthma No family history of adverse response to anesthesia Social History (Updated 01/30/25 @ 12:49 by JOSEY Belle) Smoking Status: Never smoker Second Hand Exposure: No; Do You Dip or Chew Tobacco: No (quit 10 years ago); Hx Alcohol Use: Yes Alcohol type: beer Alcohol Intake Frequency: Monthly or Less Hx Substance Use: No Preferred Language: Vietnamese Communication Ability: Effective Mandrel Press Hand Required: No Beliefs That Will Affect Care: None Current Living Situation: Spouse current occupational status: employed Feels Safe at Home: Yes Safety Concerns: Feels Safe At This Time Assistive Devices: Brace/Splint/Immobilizer and Cane Review of Systems Review of Systems: All systems reviewed & are unremarkable except as noted in HPI & below Physical Exam Physical Exam: General/Psych: WD/WN, sitting up in bed, NAD, conversing easily Head: normocephalic, atraumatic Eyes: normal inspection, PERRL, conjunctivae pink ENT: external ear and nose normal, oropharynx normal Neck: normal visual inspection, trachea midline Respiratory: normal respiratory effort, lungs with expiratory wheezing in middle posterior bilateral lungs, no accessory muscle use Cardiovascular: regular rate and rhythm, +systolic murmur, no JVD Extremities: no cyanosis or clubbing, normal peripheral pulses, no BLE edema Abdomen/GI: normal bowel sounds, soft, nontender Neurologic/MSK: A+Ox3, motor strength 5/5, moves all extremities, left shoulder with limited ROM and tenderness on palpation of anterior aspect Skin: no rashes, normal color, warm and dry; swelling noted at anterior left shoulder Results & Data Results & Data Vital Signs (Past 12 Hours) Vital Signs Temp Pulse Resp BP BP Pulse Ox O2 Del Method 01/30/25 08:06 106 H 20 111/82 96 01/30/25 07:45 109 H 19 144/90 H 97 Room Air 01/30/25 07:45 144/90 H 01/30/25 07:15 111 H 15 112/87 96 Room Air 01/30/25 06:47 114/84 01/30/25 06:15 114 H 16 124/73 93 01/30/25 06:03 113 H 20 121/82 94 01/30/25 05:45 110 H 20 121/82 95 01/30/25 05:33 118 H 20 131/79 95 01/30/25 05:33 36.8 C 18 131/79 94 Room Air 01/30/25 05:22 36.4 C 24 108/89 96 Room Air 01/30/25 05:11 125 H 22 98 Room Air 01/30/25 05:10 128 H 20 130/88 95 01/30/25 04:51 128 H 01/30/25 04:21 36.8 C 126 H 20 124/77 98 Room Air Laboratory Results Short CBC 01/30/25 Range/Units 04:55 WBC 18.16 H (4.8-10.8) K/ul Hgb 11.2 L (14.0-18.0) g/dl Hct 34.7 L (42.0-52.0) % Plt Count 462 H (130-400) K/uL BMP 01/30/25 04:55 Sodium 135 L Potassium 4.4 Chloride 99 Carbon Dioxide 25 BUN 19 Creatinine 0.92 Glucose 90 Calcium 9.3 Liver Function 01/30/25 Range/Units 04:55 Total Bilirubin 0.7 (0.2-1.0) mg/dl Direct Bilirubin 0.1 (0-0.2) mg/dl AST 15 (13-39) U/L ALT 10 (7-52) U/L Alkaline Phosphatase 69 (34-104) U/L Albumin 3.2 L (3.4-5.0) gm/dl Urine 01/30/25 Range/Units 07:23 Urine Color Yellow Urine Appearance Clear (Clear) Urine pH 6.0 (4.5-7.5) Ur Specific [place] > 1.045 H (1.000-1.030) Urine Protein Negative (Negative) Urine Glucose (UA) Negative (Negative) I have independently reviewed and interpreted patient's admitting labs including CBC, CMP, PT/INR, mag, troponin, VBG, lactate, lipase, procalcitonin, UA. Diagnostic Findings Chest X-Ray 01/30/25 04:39 EXAM: XR chest 1V portable CLINICAL HISTORY: Sepsis TECHNIQUE: X-ray image of the chest obtained in 1 frontal projection. COMPARISON: Prior X-ray dated 01/10/2025 for comparison. FINDINGS: Pulmonary Parenchyma: New finding of subtle haziness in right mid zone, acute infective/inflammatory changes cannot be ruled out. Unchanged atelectatic bands in right lower zone. No evidence of consolidation, collapse. No evidence of pleural effusion or pleural thickening. Heart and Mediastinum: Heart size and shape are normal. Aortic calcifications seen. No mediastinal widening or masses. No hilar or mediastinal lymphadenopathy. Bony Thorax: Bony thorax appears intact without fractures or deformities. Soft Tissues: Soft tissues overlying the chest wall are unremarkable. IMPRESSION: 1. New finding of subtle haziness in right mid zone, acute infective/inflammatory changes cannot be ruled out. 2. Unchanged atelectatic bands in right lower zone. Electronically signed by Wesley Oshea 01-30-2025 06:02 AM Abdomen/Pelvis CT 01/30/25 05:13 EXAM: CT abd pelvis IV con only CLINICAL HISTORY: Fever, nausea. TECHNIQUE: CT of the abdomen and pelvis was performed, with the following protocol: axial images with, and reconstructed coronal and sagittal images. 118ml Opitray-320mg/ml Intravenous contrast was administered. One of the following dose reduction techniques was utilized for this exam: Automated exposure control, adjustment of the mA and/or kV according to patient size, and use of iterative reconstruction. COMPARISON: None. FINDINGS: Abdomen: Liver: Normal in size, shape, and density. No focal lesions, cysts, or masses were identified. Hepatic vasculature and biliary ducts are unremarkable. Gallbladder and Biliary System: The gallbladder is normal in size and shape. No wall thickening, pericholecystic fluid, or gallstones were identified. The common bile duct is normal in caliber without dilation. Pancreas: Pancreatic head, body, and tail are visualized and appear normal in size and density. No pancreatic masses or calcifications were noted. The pancreatic duct is not dilated. Spleen: Normal in size, shape, and density. No splenic lesions or masses were identified. Appendix: The appendix is not visualized. Kidneys and Adrenal Glands: Duplex left kidney. Both kidneys are normal in size, shape, and position. Cortical thickness is within normal limits. No renal calculi or hydronephrosis. Adrenal glands are unremarkable with no evidence of masses or hyperplasia. Pelvis: Urinary Bladder: Normal in contour and wall thickness. No intraluminal lesions identified. Prostate: Mildly enlarged in size with small calcifications. No focal lesions or masses were identified. Seminal Vesicles: Normal in size and appearance. No abnormalities noted. Rectum and Sigmoid Colon: Normal wall thickness and no evidence of mass. Peritoneal and Retroperitoneal Structures: No free fluid or abnormal fluid collections were identified within the abdomen or pelvis. No lymphadenopathy was noted. Advanced vascular calcifications of the aorta and its main branches. Bowel: The visualized bowel loops are normal in caliber and appearance. No evidence of bowel obstruction or wall thickening. Bones and Soft Tissues: Pelvic bones and soft tissues are unremarkable. No fractures or abnormal masses were identified. Right lower abdominal wall and inguinal mesh (post-hernia repair). Small left inguinal hernia containing fat. Mild atelectasis in the lower lung lobes. Advanced lumbar spondylotic changes with multilevel posterior disc osteophyte complexes. Lower thoracic vertebrae multiple sclerotic lesions (MRI or bone scan is advised if clinically indicated). Multiple lower ribs old fractures. IMPRESSION: 1. No evidence of acute intra-abdominal or pelvic pathology. 2. Lower thoracic vertebrae multiple sclerotic lesions (MRI or bone scan is advised if clinically indicated). 3. Other findings as described. Electronically signed by Wesley Oshea 01-30-2025 07:19 AM Chest CTA 01/30/25 05:13 EXAM: CT angio chest PE protocol CLINICAL HISTORY: PE TECHNIQUE: Contiguous 3.[address] angiographic images of the chest were acquired with the administration of intravenous contrast. Coronal and sagittal reconstructions were obtained. One of these 3D techniques was utilized: Maximum Intensity Pixel (MIP), 3D Reconstructed Images, Volume Rendered Images, Surface Shaded Rendering. One of the following dose reduction techniques were utilized for this exam: Automated exposure control, adjustment of the mA and/or kV according to patient size, and use of iterative reconstruction. COMPARISON: Prior X-ray dated 01/30/2025. FINDINGS: Aorta: Atherosclerotic wall calcifications in aorta. The thoracic aorta is normal in caliber. No evidence of aneurysm, dissection. Aortic arch and descending thoracic aorta are unremarkable. Pulmonary Arteries: Pulmonary arteries are normal in size and opacification. No evidence of pulmonary embolism. No stenosis or filling defects. Superior Vena Cava (SVC) and Inferior Vena Cava (IVC): Normal opacification and caliber. No evidence of thrombus or obstruction. Coronary Arteries: Coronary artery disease. Mediastinum: No mediastinal mass or lymphadenopathy. Normal appearance of the thymus. Heart: Normal size and morphology of the heart. Left ventricle myocardial hypertrophy seen. No pericardial effusion. Lungs: Few atelectatic bands in right middle lobe. Mild subpleural interstitial thickening and reticulations in posterior segments of both lower lobes. Wall thickening in segmental/subsegmental bronchi in both lower lobes likely bronchitis. No evidence of consolidation, nodules, or masses. No pleural effusion or thickening. Bones: Old healed fractures in multiple bilateral ribs. Spondylotic changes in thoracic spine. Multiple sclerotic lesions in lower thoracic vertebral bodies Normal alignment and bone density. Soft Tissues: Normal appearance of rest of visualized soft tissues. IMPRESSION: 1. No evidence of pulmonary embolism. 2. Few atelectatic bands in right middle lobe. 3. Mild subpleural interstitial thickening and reticulations in posterior segments of both lower lobes. 4. Wall thickening in segmental/subsegmental bronchi in both lower lobes likely bronchitis. 5. Subtle haziness in right mid zone in prior X-ray not appreciated in CT likely artefactual. 6. Cardiac left ventricle myocardial hypertrophy. 7. Multiple sclerotic lesions in lower thoracic vertebral bodies, need clinical correlation if needed, further work-up. Electronically signed by Wesley Oshea 01-30-2025 07:02 AM ECG Additional Comments: I have independently reviewed and interpreted patient's admitting EKG which revealed: sinus tachycardia at a rate of 126bpm Code Status & VTE Plan Code Status Full Code Supervising Physician Co-Signing Physician Notes Patient is a 69-year-old male with multiple comorbidities presents with worsening left shoulder pain, decreased range of movement, fever, nausea which has been ongoing for few weeks. He has been taking antibiotics for recent pneumonia. He was noted to have a petechial rash and was evaluated by PCP recently. Please review HPI for complete details of presentation. I personally reviewed blood work and imaging studies. Also discussed with ER physician and patient's family. Physical Exam: Vitals signs as noted above General Appearance: Overweight, no apparent distress Head: normocephalic, Atraumatic Eyes: normal inspection, EOMI Neck: supple, Trachea midline Respiratory/Chest: Normal breath sounds, expiratory wheeze, No accessory muscle use Cardiovascular: S1, S2, +No murmur Abdomen/GI:Soft, Non tender, Bowel sounds present Extremities/Musculoskeletal:normal inspection, right foot drop, left foot petechial rash Neurologic/Psych:AAOX3, grossly no focal neurological deficits Skin: normal color, warm Possible sepsis Likely source left shoulder septic joint Lactic acidosis resolved with IV fluids Blood, synovial cultures/studies pending Empirically on Zosyn Appreciate orthopedics input Sclerotic bone lesions DD: Multiple myeloma/osteosclerotic plasmacytoma with neuropathy/POEMS Syndrome Incidental finding on CT H/O CIDP on IVIG's Paraproteinemia on prior admission Will obtain electrophoresis/immunofixation studies Would eventually need hematology evaluation inpatient Vs outpatient Will obtain PSA, TSH levels Continue prednisone Agree with workup for adrenal insufficiency May need lumbar puncture eventually I personally interviewed and examined the patient at bedside. I have reviewed the advanced practitioner's documentation on the date of service referred in note and agree with plan. Patient's care is coordinated with Karli DOWLING. Please refer to the documentation above for details of patient's presentation and for discussion of other issues. I spent a total of 35minutes coordinating, documenting, and providing care for this patient excluding time spent in the performance of separately billed services or time spent by another provider/QHP.
[2025-01-30] MEDS ORDERED: ALBUT/IPRATROP 3MG/0.5MG NEB 3 ML VIAL NEB PRN (10:45)
[2025-01-30] MEDS ORDERED: POLYETHYLENE (MIRALAX) 17 GM PACK PO PRN (10:45)
[2025-01-30] MEDS ORDERED: ONDANSETRON INJ 2 MG/ML 2 ML VIAL IV PRN (10:45)
[2025-01-30] MEDS ORDERED: CYCLOBENZAPRINE HCL 5 MG TAB PO PRN (10:45)
[2025-01-30] MEDS ORDERED: MoRPHine SULFATE 2 MG/ML CARP IV PRN (10:45)
[2025-01-30] MEDS ORDERED: GABAPENTIN 100 MG CAP PO PRN (10:58)
--- NOTE | 2025-01-30 12:23 | Orthopedic Consultation ---
Date of Consultation January 30, 2025 Assessment & Plan (1) Left shoulder pain: Plan Shoulder pain, decreased mobility and swelling from chronic erosive degenerative changes potentially due to AVN vs. undiagnosed rheumatoid arthritis vs chronic infection. Findings and plan was discussed with the patient in the room today. A CT of his shoulder was ordered. Discussed that we will continue to follow the results of that. He may benefit from having it aspirated by interventional radiology and sent off for testing to test for infectious disease process. Discussed with Dr Bond, will additionally order MRI to better evaluate and xray of his right shoulder for comparison, patient reported today he also has chronic right shoulder pain. All of their questions and concerns were addressed. Will continue to follow. Supervising Physician Co-Signing Physician Notes I saw and examined the patient, reviewed his imaging, formulated the plan and performed the substantive portion of the visit. Patient exam not consistent with acute septic arthritis of the shoulder. 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 Plan to follow cultures. If negative, he can follow-up with Dr. Coyle as scheduled. If positive, indicating chronic osteomyelitis/septic arthritis, then would need to be transferred to shoulder specialist at tertiary care facility as he is a complex, high risk patient for any surgical intervention due to chronic immunosuppression, CIDP, asthma, and other medical comorbidities. In the interim, pain medication per hospitalist. History of Present Illness Reason for Consultation: left shoulder pain Attending Physician: James Colmenares MD History of Present Illness Theron is a 69-year-old male who presented to the emergency department due to nausea, fever. He says his left shoulder is also painful but that is not his biggest concern and not the only reason that he came to the hospital. He has been dealing with bilateral shoulder pain for a while now. His left is usually worse than his right. He says starting a couple months ago his left shoulder pain seemed to worsen. He says that nothing has worsened the past couple days it has been about the same for the past couple months. He denies any history of rheumatoid arthritis but says that rheumatoid arthritis does run in his family. He has never seen an orthopedic provider for this issue but he does have an appointment scheduled with [facility] next month. He says his pain stays in his shoulder and does not radiate beyond his elbow. He has decreased mobility in his shoulder but nothing that is worsened recently. Allergies Allergy/AdvReac Type Severity Reaction Status Date / Time amoxicillin AdvReac Intermediate made me Verified 01/30/25 08:14 feel weird Home Medications Medication Instructions Recorded Confirmed Type albuterol sulfate 2.5 mg/3 mL 1 vial continuous nebulization Q4 08/13/18 01/30/25 History (0.083 %) solution for nebulization PRN Shortness Of Breath Or Wheezing albuterol sulfate 90 mcg/actuation 2 puff inhalation Q4 PRN Shortness 08/13/18 01/30/25 History aerosol inhaler Of Breath Or Wheezing fluticasone 500 mcg-salmeterol 50 1 puff inhalation BID 08/13/18 01/30/25 History mcg/dose blistr powdr for inhalation metoprolol succinate 25 mg 25 mg PO QAM 08/13/18 01/30/25 History tablet,extended release 24 hr mometasone 50 mcg/actuation nasal 2 spray intranasal DAILY 08/13/18 01/30/25 History spray montelukast 10 mg tablet 10 mg PO QAM 08/13/18 01/30/25 History cyclobenzaprine 5 mg tablet 5 mg PO BID PRN Muscle Spasm 09/15/21 01/30/25 History duloxetine 60 mg capsule,delayed 60 mg PO DAILY 09/15/21 01/30/25 History release gabapentin 100 mg capsule 100 - 300 mg PO HS 09/15/21 01/30/25 History mepolizumab 100 mg subcutaneous 100 mg subcut UD 09/15/21 01/30/25 History solution (Nucala) tiotropium bromide 2.5 2 puff inhalation QAM 09/15/21 01/30/25 History mcg/actuation mist for inhalation (Spiriva Respimat) hydralazine 25 mg tablet 25 mg PO Q4H PRN When BP is over 01/30/25 01/30/25 History 160/100 potassium chloride 20 mEq 40 meq PO QAM 01/30/25 01/30/25 History tablet,extended release(part/cryst) prednisone 10 mg tablet 10 mg PO DAILY 01/30/25 01/30/25 History torsemide 10 mg tablet 10 mg PO QAM 01/30/25 01/30/25 History Patient History Medical History (Updated 01/30/25 @ 12:49 by JOSEY Belle) Benign essential HTN Ulcer of left knee Cellulitis Encounter for pre-operative examination Encounter for pre-operative examination Multiple fractures of ribs of right side Peripheral edema Tachycardia Abdominal pain Back pain Weakness Severe sepsis Osteoarthritis of wrists, bilateral Diminished pulses in lower extremity Acute hypoxemic respiratory failure Bilateral pneumonia Bacterial pneumonia Acute hypoxic respiratory failure Wrist arthritis Swelling of left wrist MSSA bacteremia Aortic stenosis Fever Nausea History of recent pneumonia SUSAN (acute kidney injury) Ambulates with cane Hernia Surgical History History of colonoscopy History of tooth extraction History of tonsillectomy Status post uvulopalatopharyngoplasty History of ear surgery mastoid sx S/P hernia surgery Family History Grandfather (Paternal) Family history of diabetes mellitus Grandfather (Maternal) Family history of diabetes mellitus Family history of esophageal cancer Other Asthma No family history of adverse response to anesthesia Social History (Updated 01/30/25 @ 12:49 by JOSEY Belle) Smoking Status: Never smoker Second Hand Exposure: No; Do You Dip or Chew Tobacco: No (quit 10 years ago); Hx Alcohol Use: Yes Alcohol type: beer Alcohol Intake Frequency: Monthly or Less Hx Substance Use: No Preferred Language: Korean Communication Ability: Effective 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 There are no breaks in the skin. There is no redness or warmth. There is no masses or fluctuance. He has pain over the AC joint, subacromial space and anterior glenohumeral joint line. Patient has significantly limited range of motion actively and passively. He can only forward flex about 80 degrees, abduct about 45 degrees. Passively I can abduct him almost to 80 degrees but he has pain with this. He can internally rotate to his side. He only has about 5 degrees of external rotation beyond neutral. Collar Stay Fuser Tender strength is intact. Strength of his shoulder is about 3 out of 5, special testing difficult to assess due to decreased mobility and strength. Positive Cosby. Positive empty can Results & Data Vital Signs (Past 12 Hours) Vital Signs Temp Pulse Pulse Resp BP BP Pulse Ox 01/30/25 10:50 01/30/25 10:50 36.5 C 104 H 17 120/80 96 01/30/25 10:36 116 H 01/30/25 09:48 99 H 15 115/80 93 01/30/25 09:33 109 H 18 95 01/30/25 09:15 102 H 22 120/90 95 01/30/25 08:59 105 H 01/30/25 08:06 106 H 20 111/82 96 01/30/25 07:45 109 H 19 144/90 H 97 01/30/25 07:45 144/90 H 01/30/25 07:15 111 H 15 112/87 96 01/30/25 06:47 114/84 01/30/25 06:15 114 H 16 124/73 93 01/30/25 06:03 113 H 20 121/82 94 01/30/25 05:45 110 H 20 121/82 95 01/30/25 05:33 118 H 20 131/79 95 01/30/25 05:33 36.8 C 18 131/79 94 01/30/25 05:22 36.4 C 24 108/89 96 01/30/25 05:11 125 H 22 98 01/30/25 05:10 128 H 20 130/88 95 01/30/25 04:51 128 H 01/30/25 04:21 36.8 C 126 H 20 124/77 98 O2 Del Method 01/30/25 10:50 Room Air 01/30/25 10:50 Room Air 01/30/25 10:36 01/30/25 09:48 01/30/25 09:33 01/30/25 09:15 01/30/25 08:59 01/30/25 08:06 01/30/25 07:45 Room Air 01/30/25 07:45 01/30/25 07:15 Room Air 01/30/25 06:47 01/30/25 06:15 01/30/25 06:03 01/30/25 05:45 01/30/25 05:33 01/30/25 05:33 Room Air 01/30/25 05:22 Room Air 01/30/25 05:11 Room Air 01/30/25 05:10 01/30/25 04:51 01/30/25 04:21 Room Air Diagnostic Findings I reviewed x-rays that were done previously in December that show degenerative changes in the AC joint and chronic erosive degenerative changes in the glenohumeral joint
[2025-01-30] MEDS: ENOXAPARIN INJ 40 MG/0.4 ML SYR SQ SCH (12:30)
[2025-01-30] MEDS: PIPERACILLIN/TAZOBACTAM 4.5 GM/100 ML BAG IV ONE (12:31)
[2025-01-30] MEDS: FLUTICASONE/VILANTEROL 200/25MCG 14 PUFFS/INHALER INH SCH (12:32)
--- NOTE | 2025-01-30 12:37 | CT Scan Report ---
CT shoulder LT wo con HISTORY: 69 years-old Male pain, swelling, decr ROM history pain and swelling of the left shoulder w ith limited range of motion. COMPARISON: Chest radiograph and CTA chest studies of same day, chest CT 09/14/2023. TECHNIQUE: Axial CT images of the left shoulder were obtained without IV contrast. A dose lowering te chnique was used consistent with the principals of TOBI. FINDINGS: Demineralized appearance of the bones. Severe osteoarthritis of the glenohumeral joint with chronic r emodeling. Degenerative related moderate to large joint effusion with intra-articular debris/ossified loose bodies again noted. Mild to moderate osteoarthritis of the AC joint. No acute fracture or disl ocation identified. Prominent subcortical cystic changes of the humeral head. Synovial calcifications . Chronic healed nondisplaced left rib fractures. Scattered sclerotic foci involving a few ribs and v ertebral bodies again noted, several which have increased in size from 09/14/2023. [id number] atrophy of the rotator cuff compatible with at least chronic partial-thickness teari ng of the rotator cuff tendons. Lung garza are better evaluated on the same day CTA chest. Cardiomeg lj with coronary artery calcifications. IMPRESSION: 1. No acute fracture or dislocation identified. 2. Severe glenohumeral osteoarthritis with chronic remodeling. 3. Degenerative related moderate to large glenohumeral joint effusion with synovial calcifications, i ntra-articular debris with calcified loose bodies. 4. Scattered nonspecific sclerotic foci of the vertebral bodies and ribs are again noted, mildly prog ressed from 09/14/2023. Findings can be correlated with serum PSA. ACT 112: Negative or not required by law. The above report was generated using voice recognition software. It may contain grammatical, syntax o r spelling errors. Electronically signed by: Sammy Wright M.D. 01/30/2025 12:36 PM
--- NOTE | 2025-01-30 13:07 | Pulmonary Consultation ---
Date of Consultation January 30, 2025 Assessment & Plan (1) Asthma: (2) JOANN (obstructive sleep apnea): (3) Long-term current use of steroids: Plan CT chest 01/30/2025 personally reviewed: Elevated right hemidiaphragm Dependent atelectasis bilateral lower lobe No significant mediastinal lymphadenopathy --Persistent asthma On Wixela 500 and Spiriva 2.5 at home Takes prednisone 10 mg on a daily basis as well On montelukast 10 mg Respiratory BioFire negative for everything on 01/30/2025 Nasal MRSA negative -- History of ABPA Gets mepolizumab SQ -- Chronic opioid dependence Takes 10 mg prednisone on a daily basis --JOANN Not on CPAP --Chronic inflammatory demyelinating polyneuropathy Getting IV IG Plan: Recommend to continue with Breo and Incruse while in the hospital Based on the CT chest I do not see patient has any pulmonary infectious etiology. Patient is on chronic prednisone If he is planning to go to the OR then would recommend to give stress dose hydrocortisone prior to taking him to the OR. Patient had elevated ESR and CRP when he was admitted in December, he also seems to have paraproteinemia. Agree with workup for multiple myeloma Prednisone might be covering patient's underlying inflammatory issues. Defer workup to primary team. I spent more than 75 minutes looking in the chart, images, discussing the plan of care with the patient, RN as well as primary team Please note the above document was generated using voice recognition software. It may contain grammatical, syntax or spelling errors.Any formal questions or concerns about the content, text or information contained within the body of this dictation should be directly addressed to the provider for clarification. History of Present Illness Attending Physician: James Colmenares MD History of Present Illness 69-year-old admitted to the hospital for shoulder pain. Past medical history: Persistent asthma, ABPA, JOANN not on CPAP, chronic sinusitis, chronic inflammatory demyelinating polyneuropathy At the time of examination patient's is in the room Patient was not in any respiratory distress His saturation was 97% on room air He said he is compliant with his Wixela as well as Spiriva on a regular basis He has been taking prednisone 10 mg for a very long time. He has been on prednisone for approximately 10 years or more. Subjective fever at home The main reason he came to the hospital was shoulder pain. He denied any issues with his breathing No chest pain, no chest tightness, no wheezing, no diaphoresis No significant cough or phlegm right now. No dysuria or diarrhea prior to coming to the hospital No unusual headache or blurry vision Social history: Only smoked for couple of years when he was young. 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 Allergies Allergy/AdvReac Type Severity Reaction Status Date / Time amoxicillin AdvReac Intermediate made me Verified 01/30/25 08:14 feel weird Home Medications Medication Instructions Recorded Confirmed Type albuterol sulfate 2.5 mg/3 mL 1 vial continuous nebulization Q4 08/13/18 01/30/25 History (0.083 %) solution for nebulization PRN Shortness Of Breath Or Wheezing albuterol sulfate 90 mcg/actuation 2 puff inhalation Q4 PRN Shortness 08/13/18 01/30/25 History aerosol inhaler Of Breath Or Wheezing fluticasone 500 mcg-salmeterol 50 1 puff inhalation BID 08/13/18 01/30/25 History mcg/dose blistr powdr for inhalation metoprolol succinate 25 mg 25 mg PO QAM 08/13/18 01/30/25 History tablet,extended release 24 hr mometasone 50 mcg/actuation nasal 2 spray intranasal DAILY 08/13/18 01/30/25 History spray montelukast 10 mg tablet 10 mg PO QAM 08/13/18 01/30/25 History cyclobenzaprine 5 mg tablet 5 mg PO BID PRN Muscle Spasm 09/15/21 01/30/25 History duloxetine 60 mg capsule,delayed 60 mg PO DAILY 09/15/21 01/30/25 History release gabapentin 100 mg capsule 100 - 300 mg PO HS 09/15/21 01/30/25 History mepolizumab 100 mg subcutaneous 100 mg subcut UD 09/15/21 01/30/25 History solution (Nucala) tiotropium bromide 2.5 2 puff inhalation QAM 09/15/21 01/30/25 History mcg/actuation mist for inhalation (Spiriva Respimat) hydralazine 25 mg tablet 25 mg PO Q4H PRN When BP is over 01/30/25 01/30/25 History 160/100 potassium chloride 20 mEq 40 meq PO QAM 01/30/25 01/30/25 History tablet,extended release(part/cryst) prednisone 10 mg tablet 10 mg PO DAILY 01/30/25 01/30/25 History torsemide 10 mg tablet 10 mg PO QAM 01/30/25 01/30/25 History Patient History Medical History (Updated 01/30/25 @ 12:49 by JOSEY Belle) Benign essential HTN Ulcer of left knee Cellulitis Encounter for pre-operative examination Encounter for pre-operative examination Multiple fractures of ribs of right side Peripheral edema Tachycardia Abdominal pain Back pain Weakness Severe sepsis Osteoarthritis of wrists, bilateral Diminished pulses in lower extremity Acute hypoxemic respiratory failure Bilateral pneumonia Bacterial pneumonia Acute hypoxic respiratory failure Wrist arthritis Swelling of left wrist MSSA bacteremia Aortic stenosis Fever Nausea History of recent pneumonia SUSAN (acute kidney injury) Ambulates with cane Hernia Surgical History History of colonoscopy History of tooth extraction History of tonsillectomy Status post uvulopalatopharyngoplasty History of ear surgery mastoid sx S/P hernia surgery Family History Grandfather (Paternal) Family history of diabetes mellitus Grandfather (Maternal) Family history of diabetes mellitus Family history of esophageal cancer Other Asthma No family history of adverse response to anesthesia Social History (Updated 01/30/25 @ 12:49 by JOSEY Belle) Smoking Status: Never smoker Second Hand Exposure: No; Do You Dip or Chew Tobacco: No (quit 10 years ago); Hx Alcohol Use: Yes Alcohol type: beer Alcohol Intake Frequency: Monthly or Less Hx Substance Use: No Preferred Language: Tamazight Communication Ability: Effective 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 Beliefs That Will Affect Care: None Current Living Situation: Spouse current occupational status: employed Feels Safe at Home: Yes Safety Concerns: Feels Safe At This Time Assistive Devices: Brace/Splint/Immobilizer and Cane Review of Systems 2 Review of Systems: All systems reviewed & are unremarkable except as noted in HPI & below Physical Exam 2 Physical Exam: Constitutional: No acute distress HEENT: EOMI, PERRLA Respiratory system: Good air entry bilaterally, minimal crackles right lower lobe, no wheeze, no rhonchi CVS: S1-S2 positive, positive 2 out of 6 systolic murmur appreciated best at aorta Abdomen: Soft, nontender, nondistended, positive bowel sounds x4, obese Extremities: +2 pulses bilaterally radialis/ dorsalis pedis, no cyanosis, +1 pitting edema bilateral lower extremity R>L Neuro: Awake alert oriented x3 Psych: Normal mood and affect G/U: No Collins Skin: no rashes, warm and dry Lymphatic: no cervical or axillary lymphadenopathy Results & Data Results & Data Vital Signs (Past 12 Hours) Vital Signs Temp Pulse Pulse Resp BP BP Pulse Ox 01/30/25 10:50 01/30/25 10:50 36.5 C 104 H 17 120/80 96 01/30/25 10:36 116 H 01/30/25 09:48 99 H 15 115/80 93 01/30/25 09:33 109 H 18 95 01/30/25 09:15 102 H 22 120/90 95 01/30/25 08:59 105 H 01/30/25 08:06 106 H 20 111/82 96 01/30/25 07:45 109 H 19 144/90 H 97 01/30/25 07:45 144/90 H 01/30/25 07:15 111 H 15 112/87 96 01/30/25 06:47 114/84 01/30/25 06:15 114 H 16 124/73 93 01/30/25 06:03 113 H 20 121/82 94 01/30/25 05:45 110 H 20 121/82 95 01/30/25 05:33 118 H 20 131/79 95 01/30/25 05:33 36.8 C 18 131/79 94 01/30/25 05:22 36.4 C 24 108/89 96 01/30/25 05:11 125 H 22 98 01/30/25 05:10 128 H 20 130/88 95 01/30/25 04:51 128 H 01/30/25 04:21 36.8 C 126 H 20 124/77 98 O2 Del Method 01/30/25 10:50 Room Air 01/30/25 10:50 Room Air 01/30/25 10:36 01/30/25 09:48 01/30/25 09:33 01/30/25 09:15 01/30/25 08:59 01/30/25 08:06 01/30/25 07:45 Room Air 01/30/25 07:45 01/30/25 07:15 Room Air 01/30/25 06:47 01/30/25 06:15 01/30/25 06:03 01/30/25 05:45 01/30/25 05:33 01/30/25 05:33 Room Air 01/30/25 05:22 Room Air 01/30/25 05:11 Room Air 01/30/25 05:10 01/30/25 04:51 01/30/25 04:21 Room Air Laboratory Results 01/30/25 04:55 01/30/25 04:55 PG Care Time/CCT Total # of Minutes Spent Total Time Spent with Patient: Total time spent is greater than 50% in coordination of care (as documented) at patient's floor/unit and/or counseling patient: Coding Level of Care Code 78601 INT INP/OBS CARE MIN Diagnoses Asthma J45.909 JOANN (obstructive sleep apnea) G47.33 Long-term current use of steroids
--- NOTE | 2025-01-30 14:32 | Magnetic Resonance Report ---
MRI OF THE LEFT SHOULDER WITHOUT CONTRAST CLINICAL HISTORY: chronic erosive shoulder jt concern for infection COMPARISON STUDY: Left shoulder radiographs January 10, 2025. Left shoulder CT January 30, 2025. TECHNIQUE: Utilizing a 1.5 Rena magnet and dedicated coil, multiplanar, multiecho imaging of the lef t shoulder was performed without intravenous reticular or intravenous contrast. FINDINGS: This exam is moderately compromised by motion artifact. Severe glenohumeral chondrosis is n oted with extensive bony remodeling of the glenoid and the humeral head, as shown on prior radiograph s and CT. Intramedullary fat-containing signal abnormality within the left humeral head and neck may represent a bone infarct. Subchondral cystic change within the left humeral head is present. There is marked marrow edema within the left humeral head with patchy diminished T1 marrow signal. There is n o significant marrow edema within the glenoid. Irregularity of the glenoid is probably chronic. No de finite acute fractures are present. There is moderate osteoarthritis of the acromioclavicular joint. Of note, there is a large complex glenohumeral joint effusion which contains extensive material. Ther e is also significant distention of the subacromial/subdeltoid bursa. A complex collection along the posterior aspect of the infraspinatus communicates with the joint space or bursa. Extensive soft tiss ue edema adjacent to the left shoulder is present. There is extensive intramuscular edema within mult iple muscles of the left shoulder. Large full-thickness tear of supraspinatus with tendon retraction and muscular atrophy is present. The majority of infraspinatus is also fully torn. Mid to posterior f ibers are partially intact. There is a large full-thickness tear subscapularis. There is a tear of th e proximal long head biceps tendon. A normal-appearing labrum is not visualized. IMPRESSION: 1. Exam moderately compromised by motion artifact. 2. Markedly abnormal appearance of the glenohumeral joint consistent with severe chronic osteoarthrit is with chronic remodeling of the left humeral head and glenoid. 3. Marked marrow edema within the left humeral head and neck with patchy diminished T1 marrow signal. This is likely on a degenerative basis. Although less likely, acute osteomyelitis could appear simil ar. 4. Large complex glenohumeral joint effusion and a markedly distended subacromial/subdeltoid bursa. A gain, these findings are probably degenerative however an infectious process could appear similar and should be correlated with fluid sampling from recent aspiration. 5. Extensive rotator cuff tears, as described above. Tear of the proximal long head of the biceps ten don. 6. Extensive soft tissue edema adjacent to the left shoulder. Multifocal intramuscular edema. ACT 112: Negative or not required by law. Electronically signed by: Zaheer Alfaro M.D. 01/30/2025 2:30 PM
--- NOTE | 2025-01-30 14:33 | Fluoroscopy Report ---
Fluoroscopic guided left shoulder joint aspiration INDICATION: Left shoulder joint effusion PROCEDURE: Procedure and risks were explained. Informed consent was obtained. A final timeout was com pleted. The left shoulder was prepped and draped in sterile fashion. 1% lidocaine was utilized for sk in anesthesia. Utilizing fluoroscopic guidance, a 22-gauge spinal needle was advanced into the left shoulder joint c apsule. Approximately 4 mL of cloudy viscous yellow-tinged fluid was aspirated and sent to lab for an alysis. The needle was removed and Band-Aid applied. The patient tolerated the procedure well. Total fluoroscopy time 12 seconds. Study dose is 3.19mGy. IMPRESSION: Left shoulder joint aspiration as above. Performed, dictated, and signed by Sukhi Gabriel PA-C; to be co-signed by Dr. Zaheer Alfaro. Electronically signed by: Zaheer Alfaro M.D. 01/30/2025 2:48 PM
--- NOTE | 2025-01-30 14:43 | XRay Report ---
XR shoulder RT min 2V routine CLINICAL HISTORY: Right shoulder pain. COMPARISON: Chest radiograph January 10, 2025. FINDINGS: No acute fractures within the right shoulder identified. There is severe glenohumeral join t osteophytosis with chronic remodeling of the humeral head and glenoid. Findings appear similar to c hest radiograph of January 10, 2025. There is no evidence for dislocation. Several round calcific densit ies along the superolateral aspect of the humeral head measure up to 6 mm. These could represent join t bodies. IMPRESSION: 1. No acute fracture or dislocation within the right shoulder. 2. Severe right glenohumeral joint osteoarthritis. ACT 112: Negative or not required by law. Electronically signed by: Zaheer Alfaro M.D. 01/30/2025 2:42 PM
[2025-01-30 15:07] LABS: Color Synovial Fluid Pale Yellow; Mononuclear WBC Synovial 1.4 %; Polynuclear WBC Synovial 98.6 %; RBC Synovial Fluid Auto 33000 /uL; Source Synovial Fluid Shoulder; WBC Synovial Fluid Auto 61450 /ul (0-200)
[2025-01-30] MEDS: KETOROLAC TROMETHAMINE 15 MG/ML VIAL IV PRN (16:31)
--- NOTE | 2025-01-30 16:55 | Neurology Consultation ---
Date of Consultation January 30, 2025 Assessment & Plan (1) Chronic inflammatory demyelinating neuropathy: Without evidence of acute exacerbation Plan Continue with prednisone 10 mg twice daily. Treated any underlying infections. Follow-up as an outpatient with Dr. Dodge Telehealth Consultation Telehealth Information Telehealth Information: I performed this visit using a real-time telehealth connection between my location and the patients location ([facility]). After connecting through interactive tele-video, patient was identified by name and date of and/or wristband check.Patient (or authorized healthcare medical claims representative) was informed that this was a telemedicine visit and it was being conducted confidentially over secure lines. My office door was closed and no one else was present in the room with me.Patient (or authorized healthcare medical claims representative) provided consent to proceed with the visit, expressed an understanding of privacy and security of the telemedicine visit, and gave permission to have a hospital medical claims representative in the room in order to assist with the visit and to conduct portions of the visit, as needed. I informed the patient (or authorized healthcare medical claims representative) that I reviewed their record and presented the opportunity for them to ask any questions regarding the visit today. The patient agreed to participate. History of Present Illness Reason for Consultation: CIDP Requesting Physician: James Colmenares MD Attending Physician: James Colmenares MD History of Present Illness Mr. Theron Dobbins is a 69-year-old male patient with PMH of CIDP with long-term use of steroids, currently on prednisone 10 mg orally daily, history of allergic bronchopulmonary aspergillosis, HTN, mild aortic stenosis and polyneuropathy the patient does have a right foot drop that is chronic and wears orthosis the patient has presented to the hospital with fevers tachycardia and tachypnea. Received Zosyn in the ED and is currently being treated for sepsis source remains unknown. He reports significant left shoulder pain with an x-ray showed significant osteoarthritis. Neurology was consulted for CIDP. The patient does not display any signs of acute exacerbation. He follows with Dr. Dodge, denies any new numbness or weakness denies any new focal motor deficits denies any visual changes . Allergies Allergy/AdvReac Type Severity Reaction Status Date / Time amoxicillin AdvReac Intermediate made me Verified 01/30/25 08:14 feel weird Home Medications Medication Instructions Recorded Confirmed Type albuterol sulfate 2.5 mg/3 mL 1 vial continuous nebulization Q4 08/13/18 01/30/25 History (0.083 %) solution for nebulization PRN Shortness Of Breath Or Wheezing albuterol sulfate 90 mcg/actuation 2 puff inhalation Q4 PRN Shortness 08/13/18 01/30/25 History aerosol inhaler Of Breath Or Wheezing fluticasone 500 mcg-salmeterol 50 1 puff inhalation BID 08/13/18 01/30/25 History mcg/dose blistr powdr for inhalation metoprolol succinate 25 mg 25 mg PO QAM 08/13/18 01/30/25 History tablet,extended release 24 hr mometasone 50 mcg/actuation nasal 2 spray intranasal DAILY 08/13/18 01/30/25 History spray montelukast 10 mg tablet 10 mg PO QAM 08/13/18 01/30/25 History cyclobenzaprine 5 mg tablet 5 mg PO BID PRN Muscle Spasm 09/15/21 01/30/25 History duloxetine 60 mg capsule,delayed 60 mg PO DAILY 09/15/21 01/30/25 History release gabapentin 100 mg capsule 100 - 300 mg PO HS 09/15/21 01/30/25 History mepolizumab 100 mg subcutaneous 100 mg subcut UD 09/15/21 01/30/25 History solution (Nucala) tiotropium bromide 2.5 2 puff inhalation QAM 09/15/21 01/30/25 History mcg/actuation mist for inhalation (Spiriva Respimat) hydralazine 25 mg tablet 25 mg PO Q4H PRN When BP is over 01/30/25 01/30/25 History 160/100 potassium chloride 20 mEq 40 meq PO QAM 01/30/25 01/30/25 History tablet,extended release(part/cryst) prednisone 10 mg tablet 10 mg PO DAILY 01/30/25 01/30/25 History torsemide 10 mg tablet 10 mg PO QAM 01/30/25 01/30/25 History Patient History Medical History (Updated 01/30/25 @ 12:49 by JOSEY Belle) Benign essential HTN Ulcer of left knee Cellulitis Encounter for pre-operative examination Encounter for pre-operative examination Multiple fractures of ribs of right side Peripheral edema Tachycardia Abdominal pain Back pain Weakness Severe sepsis Osteoarthritis of wrists, bilateral Diminished pulses in lower extremity Acute hypoxemic respiratory failure Bilateral pneumonia Bacterial pneumonia Acute hypoxic respiratory failure Wrist arthritis Swelling of left wrist MSSA bacteremia Aortic stenosis Fever Nausea History of recent pneumonia SUSAN (acute kidney injury) Ambulates with cane Hernia Surgical History History of colonoscopy History of tooth extraction History of tonsillectomy Status post uvulopalatopharyngoplasty History of ear surgery mastoid sx S/P hernia surgery Family History Grandfather (Paternal) Family history of diabetes mellitus Grandfather (Maternal) Family history of diabetes mellitus Family history of esophageal cancer Other Asthma No family history of adverse response to anesthesia Social History (Updated 01/30/25 @ 12:49 by JOSEY Belle) Smoking Status: Never smoker Second Hand Exposure: No; Do You Dip or Chew Tobacco: No (quit 10 years ago); Hx Alcohol Use: Yes Alcohol type: beer Alcohol Intake Frequency: Monthly or Less Hx Substance Use: No Preferred Language: Maori Communication Ability: Effective 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 Beliefs That Will Affect Care: None Current Living Situation: Spouse current occupational status: employed Feels Safe at Home: Yes Safety Concerns: Feels Safe At This Time Assistive Devices: Brace/Splint/Immobilizer and Cane Review of Systems Negative except for the points mentioned in HPI Physical Exam General Constitutional: Appearance normally developed Head and face: normocephalic and atraumatic Eyes: no ptosis, no anisocoria, and no dysconjugate gaze Respiratory: normal effort Cardiovascular: regular rhythm and regular rate Abdomen: non distended Skin: no rashes, lesions, or ulcers noted Psychiatric: normal judgement and insight, normal mood, and normal affect NEUROLOGIC EXAMINATION: Mental Status:alert, oriented to time, place, person, normal recent memory, normal remote memory, normal attention span, normal concentration, normal language and normal fund of knowledge Cranial Nerves: CN 2 - no visual defect on confrontation and pupils round, equal, reactive to light CN 3, 4, 6 - extra-ocular movements intact and no nystagmus CN 5 - facial sensation intact CN 7 - no facial asymmetry CN 8 - intact hearing CN 9, 10 - palate symmetric, normal gag CN 11 - good shoulder shrug CN 12 - tongue midline MOTOR: Strength was at least antigravity throughout, Pronator drift was absent and There were no abnormal movements, right foot drop. SENSATION: intact and symmetric to pinprick, light touch, vibration and joint position GAIT: Deferred COORDINATION: no ataxia with finger to nose testing and heel to fleming testing REFLEXES: cannot assess over telemedicine Results & Data Vital Signs (Past 12 Hours) Vital Signs Temp Pulse Pulse Resp BP BP BP 01/30/25 16:10 105 H 16 126/79 01/30/25 15:40 111 H 18 108/77 01/30/25 15:10 103 H 17 109/75 01/30/25 14:54 36.7 C 123 H 17 140/93 01/30/25 10:50 01/30/25 10:50 36.5 C 104 H 17 120/80 01/30/25 10:36 116 H 01/30/25 09:48 99 H 15 115/80 01/30/25 09:33 109 H 18 01/30/25 09:15 102 H 22 120/90 01/30/25 08:59 105 H 01/30/25 08:06 106 H 20 111/82 01/30/25 07:45 109 H 19 144/90 H 01/30/25 07:45 144/90 H 01/30/25 07:15 111 H 15 112/87 01/30/25 06:47 114/84 01/30/25 06:15 114 H 16 124/73 01/30/25 06:03 113 H 20 121/82 01/30/25 05:45 110 H 20 121/82 01/30/25 05:33 118 H 20 131/79 01/30/25 05:33 36.8 C 18 131/79 01/30/25 05:22 36.4 C 24 108/89 01/30/25 05:11 125 H 22 01/30/25 05:10 128 H 20 130/88 Pulse Ox O2 Del Method 01/30/25 16:10 98 Room Air 01/30/25 15:40 96 Room Air 01/30/25 15:10 96 Room Air 01/30/25 14:54 96 Room Air 01/30/25 10:50 Room Air 01/30/25 10:50 96 Room Air 01/30/25 10:36 01/30/25 09:48 93 01/30/25 09:33 95 01/30/25 09:15 95 01/30/25 08:59 01/30/25 08:06 96 01/30/25 07:45 97 Room Air 01/30/25 07:45 01/30/25 07:15 96 Room Air 01/30/25 06:47 01/30/25 06:15 93 01/30/25 06:03 94 01/30/25 05:45 95 01/30/25 05:33 95 01/30/25 05:33 94 Room Air 01/30/25 05:22 96 Room Air 01/30/25 05:11 98 Room Air 01/30/25 05:10 95 Laboratory Results Laboratory Results - last 24 hr 01/30/25 01/30/25 01/30/25 04:52 04:55 07:23 WBC 18.16 H RBC 3.69 L Hgb 11.2 L Hct 34.7 L MCV 94.0 MCH 30.4 MCHC 32.3 RDW Std Deviation 50.5 H RDW Coeff of Karishma 14.8 H Plt Count 462 H MPV 9.3 L Immature Gran % (Auto) 0.8 Neut % (Auto) 79.3 Lymph % (Auto) 10.6 [place] % (Auto) 8.9 Eos % (Auto) 0.1 Baso % (Auto) 0.3 Neut # (Auto) 14.41 H Lymph # (Auto) 1.92 [place] # (Auto) 1.62 H Eos # (Auto) 0.01 Baso # (Auto) 0.05 Immature Gran # (Auto) 0.15 PT 11.2 INR 1.0 VBG pH 7.36 VBG pCO2 48 VBG pO2 30 VBG HCO3 27 VBG O2 Saturation < 60.0 VBG Base Excess 1.0 Sodium 135 L Potassium 4.4 Chloride 99 Carbon Dioxide 25 Anion Gap 11 BUN 19 Creatinine 0.92 Est Cr Clr Drug Dosing 90.1 eGFR 89.49 BUN/Creatinine Ratio 20.7 H Glucose 90 Lactate 3.0 H* Calcium 9.3 Magnesium 2.0 Total Bilirubin 0.7 Direct Bilirubin 0.1 AST 15 ALT 10 Alkaline Phosphatase 69 Troponin I High Sens 8.9 Total Protein 7.6 Total Protein (PEP) Albumin 3.2 L Albumin (PEP) Pjhmq-3-Qdqffpmgk Nfgkb-0-Unbhzhddw Wpwx-1-Rnpdwunl Jaif-6-Lqftaluj Gamma Globulins Monoclonal Peak 3 Ser Monoclonl Protein Ser Monoclonal Prot 2 PEP Interpretation Lipase 24 Procalcitonin 0.31 TSH 1.072 Random Cortisol 19.56 Urine Color Yellow Urine Appearance Clear Urine pH 6.0 Ur Specific Reeders > 1.045 H Urine Protein Negative Urine Glucose (UA) Negative Urine Ketones 1+ H Urine Blood Negative Urine Nitrite Negative Urine Bilirubin Negative Urine Urobilinogen Negative Ur Leukocyte Esterase Negative Urine Comment Fld Lyme DNA (PCR) Fluid Comment Synovial Source Synovial Color Synovial Appearance Synovial WBC (Auto) Synovial RBC (Auto) Synovial Polynuclear % Synovial Mononuclear % Synovial Crystals Nasal Screen MRSA (PCR) Serum Immunofixation Adenovirus (PCR) Not Detected Anaplasma Smear See Comment Babesia Smear See Comment Babesia microti DNA PCR Pending B. pertussis DNA (PCR) Not Detected B.parapertussis DNA PCR Not Detected Lyme Specimen Source Lyme Disease Screen Negative C. pneumoniae DNA (PCR) Not Detected Coronavirus OC43 (PCR) Not Detected Coronavirus HKU1 (PCR) Not Detected Coronavirus 229E (PCR) Not Detected SARS-CoV-2 (PCR) Not Detected Coronavirus NL63 (PCR) Not Detected Human Metapneumovir PCR Not Detected Influenza Type A (PCR) Not Detected Influenza Type B (PCR) Not Detected M. pneumoniae (PCR) Not Detected Parainfluenza 1 (PCR) Not Detected Parainfluenza 2 (PCR) Not Detected Parainfluenza 3 (PCR) Not Detected Parainfluenza 4 (PCR) Not Detected RSV (PCR) Not Detected Entero/Rhino (PCR) Not Detected 01/30/25 01/30/25 01/30/25 07:35 11:08 Unknown WBC RBC Hgb Hct MCV MCH MCHC RDW Std Deviation RDW Coeff of Karishma Plt Count MPV Immature Gran % (Auto) Neut % (Auto) Lymph % (Auto) [place] % (Auto) Eos % (Auto) Baso % (Auto) Neut # (Auto) Lymph # (Auto) [place] # (Auto) Eos # (Auto) Baso # (Auto) Immature Gran # (Auto) PT INR VBG pH VBG pCO2 VBG pO2 VBG HCO3 VBG O2 Saturation VBG Base Excess Sodium Potassium Chloride Carbon Dioxide Anion Gap BUN Creatinine Est Cr Clr Drug Dosing eGFR BUN/Creatinine Ratio Glucose Lactate 1.4 Calcium Magnesium Total Bilirubin Direct Bilirubin AST ALT Alkaline Phosphatase Troponin I High Sens Total Protein Total Protein (PEP) Pending Albumin Albumin (PEP) Pending Ezukk-7-Xabmtdbsl Pending Ajuvh-6-Kabccyhml Pending Eydt-8-Ysvvevgh Pending Iwia-5-Spideeyg Pending Gamma Globulins Pending Monoclonal Peak 3 Pending Ser Monoclonl Protein Pending Ser Monoclonal Prot 2 Pending PEP Interpretation Pending Lipase Procalcitonin TSH Random Cortisol Urine Color Urine Appearance Urine pH Ur Specific Reeders Urine Protein Urine Glucose (UA) Urine Ketones Urine Blood Urine Nitrite Urine Bilirubin Urine Urobilinogen Ur Leukocyte Esterase Urine Comment Fld Lyme DNA (PCR) Pending Fluid Comment Synovial Source Shoulder Synovial Color Pale Yellow Synovial Appearance Cloudy Synovial WBC (Auto) 26425 H Synovial RBC (Auto) 29973 Synovial Polynuclear % 98.6 Synovial Mononuclear % 1.4 Synovial Crystals Pending Nasal Screen MRSA (PCR) Negative Serum Immunofixation Pending Adenovirus (PCR) Anaplasma Smear Babesia Smear Babesia microti DNA PCR B. pertussis DNA (PCR) B.parapertussis DNA PCR Lyme Specimen Source Pending Lyme Disease Screen C. pneumoniae DNA (PCR) Coronavirus OC43 (PCR) Coronavirus HKU1 (PCR) Coronavirus 229E (PCR) SARS-CoV-2 (PCR) Coronavirus NL63 (PCR) Human Metapneumovir PCR Influenza Type A (PCR) Influenza Type B (PCR) M. pneumoniae (PCR) Parainfluenza 1 (PCR) Parainfluenza 2 (PCR) Parainfluenza 3 (PCR) Parainfluenza 4 (PCR) RSV (PCR) Entero/Rhino (PCR) Diagnostic Findings Arthrography Joint Steriod Inject 01/30/25 00:00 Fluoroscopic guided left shoulder joint aspiration INDICATION: Left shoulder joint effusion PROCEDURE: Procedure and risks were explained. Informed consent was obtained. A final timeout was completed. The left shoulder was prepped and draped in sterile fashion. 1% lidocaine was utilized for skin anesthesia. Utilizing fluoroscopic guidance, a 22-gauge spinal needle was advanced into the left shoulder joint capsule. Approximately 4 mL of cloudy viscous yellow-tinged fluid was aspirated and sent to lab for analysis. The needle was removed and Band-Aid applied. The patient tolerated the procedure well. Total fluoroscopy time 12 seconds. Study dose is 3.19mGy. IMPRESSION: Left shoulder joint aspiration as above. Performed, dictated, and signed by Sukhi Gabriel PA-C; to be co-signed by Dr. Zaheer Alfaro. Electronically signed by: Zaheer Alfaro M.D. 01/30/2025 2:48 PM Chest X-Ray 01/30/25 04:39 EXAM: XR chest 1V portable CLINICAL HISTORY: Sepsis TECHNIQUE: X-ray image of the chest obtained in 1 frontal projection. COMPARISON: Prior X-ray dated 01/10/2025 for comparison. FINDINGS: Pulmonary Parenchyma: New finding of subtle haziness in right mid zone, acute infective/inflammatory changes cannot be ruled out. Unchanged atelectatic bands in right lower zone. No evidence of consolidation, collapse. No evidence of pleural effusion or pleural thickening. Heart and Mediastinum: Heart size and shape are normal. Aortic calcifications seen. No mediastinal widening or masses. No hilar or mediastinal lymphadenopathy. Bony Thorax: Bony thorax appears intact without fractures or deformities. Soft Tissues: Soft tissues overlying the chest wall are unremarkable. IMPRESSION: 1. New finding of subtle haziness in right mid zone, acute infective/inflammatory changes cannot be ruled out. 2. Unchanged atelectatic bands in right lower zone. Electronically signed by Wesley Oshea 01-30-2025 06:02 AM Abdomen/Pelvis CT 01/30/25 05:13 EXAM: CT abd pelvis IV con only CLINICAL HISTORY: Fever, nausea. TECHNIQUE: CT of the abdomen and pelvis was performed, with the following protocol: axial images with, and reconstructed coronal and sagittal images. 118ml Opitray-320mg/ml Intravenous contrast was administered. One of the following dose reduction techniques was utilized for this exam: Automated exposure control, adjustment of the mA and/or kV according to patient size, and use of iterative reconstruction. COMPARISON: None. FINDINGS: Abdomen: Liver: Normal in size, shape, and density. No focal lesions, cysts, or masses were identified. Hepatic vasculature and biliary ducts are unremarkable. Gallbladder and Biliary System: The gallbladder is normal in size and shape. No wall thickening, pericholecystic fluid, or gallstones were identified. The common bile duct is normal in caliber without dilation. Pancreas: Pancreatic head, body, and tail are visualized and appear normal in size and density. No pancreatic masses or calcifications were noted. The pancreatic duct is not dilated. Spleen: Normal in size, shape, and density. No splenic lesions or masses were identified. Appendix: The appendix is not visualized. Kidneys and Adrenal Glands: Duplex left kidney. Both kidneys are normal in size, shape, and position. Cortical thickness is within normal limits. No renal calculi or hydronephrosis. Adrenal glands are unremarkable with no evidence of masses or hyperplasia. Pelvis: Urinary Bladder: Normal in contour and wall thickness. No intraluminal lesions identified. Prostate: Mildly enlarged in size with small calcifications. No focal lesions or masses were identified. Seminal Vesicles: Normal in size and appearance. No abnormalities noted. Rectum and Sigmoid Colon: Normal wall thickness and no evidence of mass. Peritoneal and Retroperitoneal Structures: No free fluid or abnormal fluid collections were identified within the abdomen or pelvis. No lymphadenopathy was noted. Advanced vascular calcifications of the aorta and its main branches. Bowel: The visualized bowel loops are normal in caliber and appearance. No evidence of bowel obstruction or wall thickening. Bones and Soft Tissues: Pelvic bones and soft tissues are unremarkable. No fractures or abnormal masses were identified. Right lower abdominal wall and inguinal mesh (post-hernia repair). Small left inguinal hernia containing fat. Mild atelectasis in the lower lung lobes. Advanced lumbar spondylotic changes with multilevel posterior disc osteophyte complexes. Lower thoracic vertebrae multiple sclerotic lesions (MRI or bone scan is advised if clinically indicated). Multiple lower ribs old fractures. IMPRESSION: 1. No evidence of acute intra-abdominal or pelvic pathology. 2. Lower thoracic vertebrae multiple sclerotic lesions (MRI or bone scan is advised if clinically indicated). 3. Other findings as described. Electronically signed by Wesley Oshea 01-30-2025 07:19 AM Chest CTA 01/30/25 05:13 EXAM: CT angio chest PE protocol CLINICAL HISTORY: PE TECHNIQUE: Contiguous 3.[address] angiographic images of the chest were acquired with the administration of intravenous contrast. Coronal and sagittal reconstructions were obtained. One of these 3D techniques was utilized: Maximum Intensity Pixel (MIP), 3D Reconstructed Images, Volume Rendered Images, Surface Shaded Rendering. One of the following dose reduction techniques were utilized for this exam: Automated exposure control, adjustment of the mA and/or kV according to patient size, and use of iterative reconstruction. COMPARISON: Prior X-ray dated 01/30/2025. FINDINGS: Aorta: Atherosclerotic wall calcifications in aorta. The thoracic aorta is normal in caliber. No evidence of aneurysm, dissection. Aortic arch and descending thoracic aorta are unremarkable. Pulmonary Arteries: Pulmonary arteries are normal in size and opacification. No evidence of pulmonary embolism. No stenosis or filling defects. Superior Vena Cava (SVC) and Inferior Vena Cava (IVC): Normal opacification and caliber. No evidence of thrombus or obstruction. Coronary Arteries: Coronary artery disease. Mediastinum: No mediastinal mass or lymphadenopathy. Normal appearance of the thymus. Heart: Normal size and morphology of the heart. Left ventricle myocardial hypertrophy seen. No pericardial effusion. Lungs: Few atelectatic bands in right middle lobe. Mild subpleural interstitial thickening and reticulations in posterior segments of both lower lobes. Wall thickening in segmental/subsegmental bronchi in both lower lobes likely bronchitis. No evidence of consolidation, nodules, or masses. No pleural effusion or thickening. Bones: Old healed fractures in multiple bilateral ribs. Spondylotic changes in thoracic spine. Multiple sclerotic lesions in lower thoracic vertebral bodies Normal alignment and bone density. Soft Tissues: Normal appearance of rest of visualized soft tissues. IMPRESSION: 1. No evidence of pulmonary embolism. 2. Few atelectatic bands in right middle lobe. 3. Mild subpleural interstitial thickening and reticulations in posterior segments of both lower lobes. 4. Wall thickening in segmental/subsegmental bronchi in both lower lobes likely bronchitis. 5. Subtle haziness in right mid zone in prior X-ray not appreciated in CT likely artefactual. 6. Cardiac left ventricle myocardial hypertrophy. 7. Multiple sclerotic lesions in lower thoracic vertebral bodies, need clinical correlation if needed, further work-up. Electronically signed by Wesley Oshea 01-30-2025 07:[address] 01/30/25 10:32 CT shoulder LT wo con HISTORY: 69 years-old Male pain, swelling, decr ROM history pain and swelling of the left shoulder with limited range of motion. COMPARISON: Chest radiograph and CTA chest studies of same day, chest CT 09/14/2023. TECHNIQUE: Axial CT images of the left shoulder were obtained without IV contrast. A dose lowering technique was used consistent with the principals of ALARA. FINDINGS: Demineralized appearance of the bones. Severe osteoarthritis of the glenohumeral joint with chronic remodeling. Degenerative related moderate to large joint effusion with intra-articular debris/ossified loose bodies again noted. Mild to moderate osteoarthritis of the AC joint. No acute fracture or dislocation identified. Prominent subcortical cystic changes of the humeral head. Synovial calcifications. Chronic healed nondisplaced left rib fractures. Scattered sclerotic foci involving a few ribs and vertebral bodies again noted, several which have increased in size from 09/14/2023. [id number] atrophy of the rotator cuff compatible with at least chronic partial-thickness tearing of the rotator cuff tendons. Lung garza are better evaluated on the same day CTA chest. Cardiomegaly with coronary artery calcifications. IMPRESSION: 1. No acute fracture or dislocation identified. 2. Severe glenohumeral osteoarthritis with chronic remodeling. 3. Degenerative related moderate to large glenohumeral joint effusion with synovial calcifications, intra-articular debris with calcified loose bodies. 4. Scattered nonspecific sclerotic foci of the vertebral bodies and ribs are a gain noted, mildly progressed from 09/14/2023. Findings can be correlated with serum PSA. ACT 112: Negative or not required by law. The above report was generated using voice recognition software. It may contain grammatical, syntax or spelling errors. Electronically signed by: Sammy Wright M.D. 01/30/2025 12:36 PM Shoulder MRI 01/30/25 12:37 MRI OF THE LEFT SHOULDER WITHOUT CONTRAST CLINICAL HISTORY: chronic erosive shoulder jt concern for infection COMPARISON STUDY: Left shoulder radiographs January 10, 2025. Left shoulder CT January 30, 2025. TECHNIQUE: Utilizing a 1.5 Rena magnet and dedicated coil, multiplanar, multiecho imaging of the left shoulder was performed without intravenous reticular or intravenous contrast. FINDINGS: This exam is moderately compromised by motion artifact. Severe glenohumeral chondrosis is noted with extensive bony remodeling of the glenoid and the humeral head, as shown on prior radiographs and CT. Intramedullary fat- containing signal abnormality within the left humeral head and neck may represent a bone infarct. Subchondral cystic change within the left humeral head is present. There is marked marrow edema within the left humeral head with patchy diminished T1 marrow signal. There is no significant marrow edema within the glenoid. Irregularity of the glenoid is probably chronic. No definite acute fractures are present. There is moderate osteoarthritis of the acromioclavicular joint. Of note, there is a large complex glenohumeral joint effusion which contains extensive material. There is also significant distention of the subacromial/subdeltoid bursa. A complex collection along the posterior aspect of the infraspinatus communicates with the joint space or bursa. Extensive soft tissue edema adjacent to the left shoulder is present. There is extensive intramuscular edema within multiple muscles of the left shoulder. Large full- thickness tear of supraspinatus with tendon retraction and muscular atrophy is present. The majority of infraspinatus is also fully torn. Mid to posterior fibers are partially intact. There is a large full-thickness tear subscapularis. There is a tear of the proximal long head biceps tendon. A normal-appearing labrum is not visualized. IMPRESSION: 1. Exam moderately compromised by motion artifact. 2. Markedly abnormal appearance of the glenohumeral joint consistent with severe chronic osteoarthritis with chronic remodeling of the left humeral head and glenoid. 3. Marked marrow edema within the left humeral head and neck with patchy diminished T1 marrow signal. This is likely on a degenerative basis. Although less likely, acute osteomyelitis could appear similar. 4. Large complex glenohumeral joint effusion and a markedly distended subacro mial/subdeltoid bursa. Again, these findings are probably degenerative however an infectious process could appear similar and should be correlated with fluid sampling from recent aspiration. 5. Extensive rotator cuff tears, as described above. Tear of the proximal long head of the biceps tendon. 6. Extensive soft tissue edema adjacent to the left shoulder. Multifocal intramuscular edema. ACT 112: Negative or not required by law. Electronically signed by: Zaheer Alfaro M.D. 01/30/2025 2:30 PM Shoulder X-Ray 01/30/25 14:25 XR shoulder RT min 2V routine CLINICAL HISTORY: Right shoulder pain. COMPARISON: Chest radiograph January 10, 2025. FINDINGS: No acute fractures within the right shoulder identified. There is severe glenohumeral joint osteophytosis with chronic remodeling of the humeral head and glenoid. Findings appear similar to chest radiograph of January 10, 2025. There is no evidence for dislocation. Several round calcific densities along the superolateral aspect of the humeral head measure up to 6 mm. These could represent joint bodies. IMPRESSION: 1. No acute fracture or dislocation within the right shoulder. 2. Severe right glenohumeral joint osteoarthritis. Medications Administered Home Medications Medication Instructions Recorded Confirmed Last Taken albuterol sulfate 2.5 mg/3 mL 1 vial continuous nebulization Q4 08/13/18 01/30/25 01/18/21 05:00 (0.083 %) solution for nebulization PRN Shortness Of Breath Or Wheezing albuterol sulfate 90 mcg/actuation 2 puff inhalation Q4 PRN Shortness 08/13/18 01/30/25 01/18/21 03:00 aerosol inhaler Of Breath Or Wheezing fluticasone 500 mcg-salmeterol 50 1 puff inhalation BID 08/13/18 01/30/25 01/29/25 mcg/dose blistr powdr for inhalation metoprolol succinate 25 mg 25 mg PO QAM 08/13/18 01/30/25 01/29/25 tablet,extended release 24 hr mometasone 50 mcg/actuation nasal 2 spray intranasal DAILY 08/13/18 01/30/25 01/29/25 spray montelukast 10 mg tablet 10 mg PO QAM 08/13/18 01/30/25 01/29/25 cyclobenzaprine 5 mg tablet 5 mg PO BID PRN Muscle Spasm 09/15/21 01/30/25 01/10/25 duloxetine 60 mg capsule,delayed 60 mg PO DAILY 09/15/21 01/30/25 01/29/25 release gabapentin 100 mg capsule 100 - 300 mg PO HS 09/15/21 01/30/25 01/29/25 mepolizumab 100 mg subcutaneous 100 mg subcut UD 09/15/21 01/30/25 01/26/25 solution (Nucala) tiotropium bromide 2.5 2 puff inhalation QAM 09/15/21 01/30/25 01/29/25 mcg/actuation mist for inhalation (Spiriva Respimat) hydralazine 25 mg tablet 25 mg PO Q4H PRN When BP is over 01/30/25 01/30/25 Unknown 160/100 potassium chloride 20 mEq 40 meq PO QAM 01/30/25 01/30/25 01/29/25 tablet,extended release(part/cryst) prednisone 10 mg tablet 10 mg PO DAILY 01/30/25 01/30/25 01/29/25 torsemide 10 mg tablet 10 mg PO QAM 01/30/25 01/30/25 01/29/25 Active Medications Generic Name Dose Route Start Last Admin Trade Name Freq PRN Reason Stop Dose Admin Enoxaparin Sodium 40 mg 01/30/25 10:45 01/30/25 12:30 Enoxaparin Inj 40 Mg/0.4 Ml Syr SQ 03/01/25 10:44 40 mg QAM RASHIDA Administration Fluticasone/Vilanterol 1 puffs 01/30/25 11:00 01/30/25 12:32 Fluticasone/Vilanterol 200/25mcg 14 Puffs/Inhaler INH 03/01/25 10:59 1 puffs DAILY RASHIDA Administration Sodium Chloride 1,000 mls @ 100 mls/hr 01/30/25 10:45 01/30/25 14:50 Nss IV 01/31/25 06:44 100 mls/hr .Q10H RASHIDA Infusion Ketorolac Tromethamine 15 mg 01/30/25 13:00 01/30/25 16:31 Ketorolac Tromethamine 15 Mg/Ml Vial IV 02/04/25 12:59 15 mg Q6H PRN Administration Moderate Pain (Scale 4, 5, 6) Prednisone 10 mg 01/30/25 10:45 01/30/25 14:49 Prednisone 10 Mg Tablet PO 03/01/25 10:44 10 mg DAILY RASHIDA Administration
[2025-01-30] MEDS: PIPERACILLIN/TAZOBACTAM 4.5 GM/100 ML BAG IV SCH (17:15)
[2025-01-30] MEDS: GABAPENTIN 100 MG CAP PO SCH (20:49)
--- NOTE | 2025-01-30 21:24 | Communication Note ---
Date of Service: January 30, 2025 Gram-positive cocci on initial synovial fluid CS. Add vancomycin to regimen for MRSA coverage for possible septic arthritis.
[2025-01-30] MEDS ORDERED: VANCOMYCIN CONSULT ACTIVE PRN (21:26)
[2025-01-30] MEDS: VANCOMYCIN HCL 2,500 MG in SODIUM CHLORIDE 0.9% 500 ML IV ONE (22:08)
[2025-01-31 08:45] LABS: Hematocrit (blood only) 29.5 % (42.0-52.0); Hemoglobin 9.7 g/dl (14.0-18.0); Immature Granulocytes # (auto) 0.09 K/uL (0.01-0.20); Immature Granulocytes % (auto) 0.8 %; Mean Corpuscular Hemoglobin 30.8 pg (25.0-34.0); Mean Corpuscular Volume 93.7 fL (80.0-100.0); Platelet Count 347 K/uL (130-400); RDW Standard Deviation 49.6 fL (36.4-46.3); Red Blood Count 3.15 M/uL (4.70-6.10); White Blood Count 11.50 K/ul (4.8-10.8)
[2025-01-31 09:04] LABS: Anion Gap 9.0 (3-11); Blood Urea Nitrogen 17.0 mg/dl (6-23); Calcium 8.8 mg/dl (8.6-10.3); Carbon Dioxide 23.0 mmol/L (21-32); Chloride 107.0 mmol/L (98-107); Creatinine Clr Calc Pharmacy 107.9 ml/min; Glucose 79.0 mg/dl (70-99(Fasting)); Magnesium 2.1 mg/dl (1.7-2.4); Potassium 4.0 mmol/L (3.5-5.1); Sodium 139.0 mmol/L (136-145)
--- NOTE | 2025-01-31 09:19 | Orthopedic Progress Note ---
Date of Service January 31, 2025 Assessment & Plan (1) Long-term current use of steroids: (2) Chronic inflammatory demyelinating neuropathy: (3) JOANN (obstructive sleep apnea): (4) Rotator cuff arthropathy of left shoulder: (5) Septic joint of left shoulder region: Plan: Patient appears to have a chronically infected left shoulder in the setting of underlying rotator cuff tear arthropathy. Clinically he is stable on IV vancomycin and Zosyn. No indication for any emergent washout of his shoulder given the fact that he is clinically stable. In terms of the definitive treatment for his chronically infected left shoulder this needs to be managed by a shoulder specialist at a tertiary care facility. I spoke with Dr. Theorn Hawkins at [facility] this morning about the patient. He is going to help coordinate outpatient follow-up for Mr. Gao in the next 1 to 2 weeks to see him and infectious diseases at [facility] on the same day to discuss patient's treatment options. In the meantime recommend he should continue on IV antibiotic therapy until culture results and sensitivities have returned. At that point he could transition to suppressive oral antibiotic therapy and discharge to follow-up as above assuming he remains clinically stable. Pain medication and DVT prophylaxis per the primary team. Admission and Anticipated Discharge Date Admission Date: January 30, 2025 Subjective Patient seen and examined on a.m. rounds. He reports that his shoulder is feeling a little bit better today. Has not had any fevers or chills overnight. Medications are helping. He reports no pain in the shoulder at rest. Still has limited range of motion in difficulty with forward elevation. Physical Exam Physical Exam: On exam he is alert and oriented x 3 in no acute distress. Left shoulder exam today shows him to forward elevate the shoulder 85 degrees, external rotation 40 degrees, internal rotation to the sacrum. Skin remains intact. Distally neurovascularly intact. Still has swelling around the left shoulder without any redness or warmth. Results & Data Vital Signs (Past 12 Hours) Vital Signs Temp Pulse Pulse Resp BP Pulse Ox O2 Del Method 01/31/25 08:58 36.8 C 132 H 20 116/79 97 Room Air 01/31/25 03:34 36.8 C 111 H 16 152/94 H 95 Room Air 01/30/25 23:26 36.8 C 110 H 19 130/88 98 Room Air 01/30/25 21:41 135 H Laboratory Results White count this morning was down to 11 from 18 yesterday. I reviewed his vital signs send he has been afebrile since his admission. He is tachycardic in the 1 teens to 130s, however review of his vital signs shows that he is been over 100 for his heart rate on the majority of his recorded vital signs from the past. Shoulder aspirate from yesterday shows rare gram-positive cocci on the Gram stain. Prelim cultures are not back yet. Blood cultures done yesterday are negative at 24 hours.
[2025-01-31] MEDS: VANCOMYCIN 750 MG in SODIUM CHLORIDE 0.9% 250 ML IV SCH (09:40)
[2025-01-31] MEDS: POTASSIUM CHLORIDE CRTAB 20 MEQ TABCR PO SCH (09:40)
[2025-01-31] MEDS: MONTELUKAST SODIUM 10 MG TABLET PO SCH (09:41)
[2025-01-31] MEDS: METOPROLOL SUCC 25MG EXT REL TAB PO SCH (09:41)
[2025-01-31] MEDS: TORSEMIDE 10 MG TAB PO SCH (09:41)
[2025-01-31] MEDS: UMECLIDINIUM BROMIDE 62.5MCG/BLISTER 7 PUFFS/INHALER INH SCH (09:42)
[2025-01-31] MEDS: FLUTICASONE PROPIONATE NA SPR 16 GM BTL NAE SCH (10:11)
--- NOTE | 2025-01-31 11:15 | Pharmacy Report ---
Pharmacy PK ABX Note - Date of Service January 31, 2025 - Assessment and Plan Assessment 69 year old M receiving Vancomycin/zosyn for treatment of septic left shoulder. Pertinent microbiologic data includes: Left shoulder growing S. aureus (sensitivities pending), blood cultures negative at 24 hours, synovial fluid pending Plan Vancomycin * Loading dose: 2500 mg IV x 1 * Maintenance dose: 1250 mg IV every 12 hours * Regimen is predicted to achieve target AUC/LOS of 400-600 mg/L.hr * Random level 02/02 with AM labs Pharmacy will continue to follow and will adjust dose/frequency as necessary. Thank you. Pharmacy has transitioned to AUC monitoring for vancomycin. AUC/LOS is the preferred PK/PD target and is associated with decreased risk of nephrotoxicity compared to traditional trough targets.
[2025-01-31] MEDS: LACTATED RINGER'S 1,000 ML IV ONE (12:19)
[2025-01-31] MEDS: ADVANCED PROBIOTIC 625 MG CAPSULE PO SCH (13:40)
[2025-01-31] MEDS: SODIUM CHLORIDE 0.9% 1,000 ML IV SCH (13:41)
--- NOTE | 2025-01-31 16:58 | Hospitalist Progress Note ---
Date of Service January 31, 2025 Assessment & Plan (1) Sepsis: (2) Left shoulder pain: (3) Chronic inflammatory demyelinating neuropathy: (4) Long-term current use of steroids: (5) Asthma: (6) Allergic bronchopulmonary aspergillosis: (7) HTN (hypertension): Plan 69 year old male with PMH significant for severe persistent asthma, allergic bronchopulmonary aspergillosis, JOANN not on CPAP, chronic sinusitis, hypertension, mild aortic valve stenosis, osteoporosis, chronic inflammatory demyelinating polyneuropathy, and hearing loss of right ear who presented to the ED on 01/30/2025 with fevers, left shoulder pain, and nausea and is admitted for possible sepsis. Sepsis--POA Left shoulder septic joint--POA Underlying rotator cuff tear arthropathy --Shoulder MRI:Markedly abnormal appearance of the glenohumeral joint consistent with severe chronic osteoarthritis with chronic remodeling of the left humeral head and glenoid. Marked marrow edema within the left humeral head and neck with patchy diminished T1 marrow signal. This is likely on a degenerative basis. Although less likely, acute osteomyelitis could appear similar. Large complex glenohumeral joint effusion and a markedly distended subacromial/subdeltoid bursa. Again, these findings are probably degenerative however an infectious process could appear similar and should be correlated with fluid sampling from recent aspiration. Extensive rotator cuff tears, as described above. Tear of the proximal long head of the biceps tendon. Extensive soft tissue edema adjacent to the left shoulder. Multifocal intramuscular edema. -- Blood cultures negative to date --Synovial fluid cultures growing Staph aureus --Continue IV fluids as needed --Continue IV vancomycin, Zosyn --Appreciate orthopedics input: No emergent for washout of the shoulder. --Will consult ID for further recommendations --Needs to follow-up with orthopedic surgery at tertiary care facility on discharge for definitive treatment --PT OT eval when appropriate Multiple sclerotic lesions DD: Multiple myeloma/Osteosclerotic plasmacytoma with neuropathy/POEMS Syndrome Paraproteinemia on prior admission --CT showed:Lower thoracic vertebrae multiple sclerotic lesions --Electrophoresis/immunofixation studies pending --Normal TSH, PSA levels --ECHO: Mild concentric LVH. EF 60 to 65%. Aortic valve is moderately calcified. Moderate valvular aortic stenosis. Grade 1 diastolic dysfunction. --Will need lumbar puncture/Bone Scan and Hematology eval eventually likely as outpatient Chronic inflammatory demyelinating polyneuropathy Follows with [facility] Neurology last seen Jul 2024 Receives IVIG monthly (x4 days in a row once a month) - next due 02/03-02/06 Continue duloxetine and gabapentin Neurology consulted Continue prednisone for CIDP Severe persistent asthma Allergic bronchopulmonary aspergillosis Chronic sinusitis/rhinitis Follows with [facility] Pulmonology last seen August 2024 Biofire negative VBG WNL --Chest CTA no PE; atelectatic bands in right middle lobe; mild subpleural interstitial thickening in posterior segments of both lower lobes; wall thickening in bronchi in both lower lobes likely bronchitis; cardiac LV myocardial hypertrophy Continue inhalers, montelukast and mometasone Appreciate pulmonology input Hypertension Blood pressure elevated likely situational secondary to pain Continue metoprolol, torsemide Added amlodipine 5 mg daily Hydralazine as needed Monitor and adjust medications as needed Mood disorder Continue home medications DVT Px: SQ Lovenox CODE STATUS Full code Disposition: PT OT prior to discharge Admission and Anticipated Discharge Date Admission Date: January 30, 2025 Subjective Patient is seen and examined at bedside Still has left shoulder pain especially with movement Also admits to have some nausea but no vomiting Family at bedside Denies any chest pain, dyspnea, abdominal pain No other complaints Review of Systems Review of Systems: All systems reviewed & are unremarkable except as noted in Subjective Physical Exam Physical Exam: Physical Exam: Vitals signs as noted above General Appearance: Overweight, no apparent distress Head: normocephalic, Atraumatic Eyes: normal inspection, EOMI Neck: supple, Trachea midline Respiratory/Chest: Normal breath sounds, expiratory wheeze, No accessory muscle use Cardiovascular: S1, S2, + murmur Abdomen/GI:Soft, Non tender, Bowel sounds present Extremities/Musculoskeletal:normal inspection, right foot drop, left foot petechial rash Neurologic/Psych:AAOX3, grossly no focal neurological deficits Skin: normal color, warm Results & Data Results & Data Vital Signs (Past 12 Hours) Vital Signs Temp Pulse Resp BP BP Pulse Ox O2 Del Method 01/31/25 16:01 36.6 C 101 H 20 179/99 H 92 Room Air 01/31/25 11:24 36.8 C 100 H 18 175/93 H 95 Room Air 01/31/25 08:58 36.8 C 102 H 20 116/79 97 Room Air Laboratory Results Short CBC 01/31/25 Range/Units 08:11 WBC 11.50 H (4.8-10.8) K/ul Hgb 9.7 L (14.0-18.0) g/dl Hct 29.5 L (42.0-52.0) % Plt Count 347 (130-400) K/uL BMP 01/31/25 08:11 Sodium 139 Potassium 4.0 Chloride 107 Carbon Dioxide 23 BUN 17 Creatinine 0.78 Glucose 79 Calcium 8.8
[2025-01-31] MEDS: VANCOMYCIN HCL 1,250 MG in SODIUM CHLORIDE 0.9% 250 ML IV SCH (17:09)
[2025-02-01 06:28] LABS: Hematocrit (blood only) 31.3 % (42.0-52.0); Hemoglobin 9.9 g/dl (14.0-18.0); Immature Granulocytes # (auto) 0.07 K/uL (0.01-0.20); Immature Granulocytes % (auto) 0.9 %; Mean Corpuscular Hemoglobin 29.8 pg (25.0-34.0); Mean Corpuscular Volume 94.3 fL (80.0-100.0); Platelet Count 349 K/uL (130-400); RDW Standard Deviation 49.7 fL (36.4-46.3); Red Blood Count 3.32 M/uL (4.70-6.10); White Blood Count 7.59 K/ul (4.8-10.8)
[2025-02-01 07:02] LABS: Anion Gap 7.0 (3-11); Blood Urea Nitrogen 17.0 mg/dl (6-23); Calcium 8.9 mg/dl (8.6-10.3); Carbon Dioxide 25.0 mmol/L (21-32); Chloride 107.0 mmol/L (98-107); Creatinine Clr Calc Pharmacy 106.0 ml/min; Glucose 78.0 mg/dl (70-99(Fasting)); Potassium 3.8 mmol/L (3.5-5.1); Sodium 139.0 mmol/L (136-145)
--- NOTE | 2025-02-01 15:25 | Hospitalist Progress Note ---
Date of Service February 01, 2025 Assessment & Plan (1) Sepsis: (2) Left shoulder pain: (3) Chronic inflammatory demyelinating neuropathy: (4) Long-term current use of steroids: (5) Asthma: (6) Allergic bronchopulmonary aspergillosis: (7) HTN (hypertension): Plan 69 year old male with PMH significant for severe persistent asthma, allergic bronchopulmonary aspergillosis, JOANN not on CPAP, chronic sinusitis, hypertension, mild aortic valve stenosis, osteoporosis, chronic inflammatory demyelinating polyneuropathy, and hearing loss of right ear who presented to the ED on 01/30/2025 with fevers, left shoulder pain, and nausea and is admitted for possible sepsis. Sepsis--POA Left shoulder septic joint--POA Underlying rotator cuff tear arthropathy --Shoulder MRI:Markedly abnormal appearance of the glenohumeral joint consistent with severe chronic osteoarthritis with chronic remodeling of the left humeral head and glenoid. Marked marrow edema within the left humeral head and neck with patchy diminished T1 marrow signal. This is likely on a degenerative basis. Although less likely, acute osteomyelitis could appear similar. Large complex glenohumeral joint effusion and a markedly distended subacromial/subdeltoid bursa. Again, these findings are probably degenerative however an infectious process could appear similar and should be correlated with fluid sampling from recent aspiration. Extensive rotator cuff tears, as described above. Tear of the proximal long head of the biceps tendon. Extensive soft tissue edema adjacent to the left shoulder. Multifocal intramuscular edema. -- Blood cultures negative to date --Synovial fluid cultures growing Staph aureus -- Received IV fluids --Continue IV vancomycin, Zosyn --Appreciate orthopedics input: No emergent for washout of the shoulder. --Will consult ID for further recommendations --Needs to follow-up with orthopedic surgery at tertiary care facility on discharge for definitive treatment Titrate antibiotics as able Multiple sclerotic lesions DD: Multiple myeloma/Osteosclerotic plasmacytoma with neuropathy/POEMS Syndrome Paraproteinemia on prior admission --CT showed:Lower thoracic vertebrae multiple sclerotic lesions --Electrophoresis/immunofixation studies pending --Normal TSH, PSA levels --ECHO: Mild concentric LVH. EF 60 to 65%. Aortic valve is moderately calcified. Moderate valvular aortic stenosis. Grade 1 diastolic dysfunction. --Will need lumbar puncture/Bone Scan and Hematology eval eventually likely as outpatient Advised to follow-up with hematology/oncology as outpatient Chronic inflammatory demyelinating polyneuropathy Follows with [facility] Neurology last seen Jul 2024 Receives IVIG monthly (x4 days in a row once a month) - next due 02/03-02/06 Continue duloxetine and gabapentin Appreciate neurology input Continue prednisone for CIDP Severe persistent asthma Allergic bronchopulmonary aspergillosis Chronic sinusitis/rhinitis Follows with [facility] Pulmonology last seen August 2024 Biofire negative VBG WNL --Chest CTA no PE; atelectatic bands in right middle lobe; mild subpleural interstitial thickening in posterior segments of both lower lobes; wall thickening in bronchi in both lower lobes likely bronchitis; cardiac LV myocardial hypertrophy Continue inhalers, montelukast and mometasone Appreciate pulmonology input Hypertension Blood pressure elevated likely situational secondary to pain Continue metoprolol, torsemide Added amlodipine 5 mg daily Hydralazine as needed Blood pressure stable today Mood disorder Continue home medications DVT Px: SQ Lovenox CODE STATUS Full code Disposition: Plan to discharge home in stable Admission and Anticipated Discharge Date Admission Date: January 30, 2025 Subjective Patient is seen and examined at bedside Left shoulder pain is slightly better when compared to yesterday Wound cultures growing more MSSA No new complaints today Denies any chest pain, dyspnea, abdominal pain Review of Systems Review of Systems: All systems reviewed & are unremarkable except as noted in Subjective Physical Exam Physical Exam: Physical Exam: Vitals signs as noted above General Appearance: Overweight, no apparent distress Head: normocephalic, Atraumatic Eyes: normal inspection, EOMI Neck: supple, Trachea midline Respiratory/Chest: Normal breath sounds, expiratory wheeze, No accessory muscle use Cardiovascular: S1, S2, + murmur Abdomen/GI:Soft, Non tender, Bowel sounds present Extremities/Musculoskeletal:normal inspection, right foot drop, left foot petech ial rash Neurologic/Psych:AAOX3, grossly no focal neurological deficits Skin: normal color, warm Results & Data Results & Data Vital Signs (Past 12 Hours) Vital Signs Temp Pulse Resp BP Pulse Ox O2 Del Method 02/01/25 11:21 36.4 C L 99 H 18 127/76 96 Room Air 02/01/25 08:00 162/102 H 02/01/25 07:36 36.6 C 93 H 18 159/122 H 97 Room Air Laboratory Results Short CBC 02/01/25 Range/Units 05:30 WBC 7.59 (4.8-10.8) K/ul Hgb 9.9 L (14.0-18.0) g/dl Hct 31.3 L (42.0-52.0) % Plt Count 349 (130-400) K/uL [facility] 02/01/25 05:30 Sodium 139 Potassium 3.8 Chloride 107 Carbon Dioxide 25 BUN 17 Creatinine 0.81 Glucose 78 Calcium 8.9
[2025-02-01] MEDS: SODIUM CHLORIDE 0.9% 1,000 ML IV ONE (19:01)
[2025-02-02 06:27] LABS: Hematocrit (blood only) 30.8 % (42.0-52.0); Hemoglobin 9.8 g/dl (14.0-18.0); Immature Granulocytes # (auto) 0.05 K/uL (0.01-0.20); Immature Granulocytes % (auto) 0.6 %; Mean Corpuscular Hemoglobin 30.0 pg (25.0-34.0); Mean Corpuscular Volume 94.2 fL (80.0-100.0); Platelet Count 397 K/uL (130-400); RDW Standard Deviation 49.4 fL (36.4-46.3); Red Blood Count 3.27 M/uL (4.70-6.10); White Blood Count 7.84 K/ul (4.8-10.8)
[2025-02-02 06:54] LABS: Anion Gap 10.0 (3-11); Blood Urea Nitrogen 14.0 mg/dl (6-23); Calcium 9.0 mg/dl (8.6-10.3); Carbon Dioxide 26.0 mmol/L (21-32); Chloride 104.0 mmol/L (98-107); Creatinine Clr Calc Pharmacy 95.4 ml/min; Glucose 78.0 mg/dl (70-99(Fasting)); Magnesium 2.2 mg/dl (1.7-2.4); Potassium 3.7 mmol/L (3.5-5.1); Sodium 140.0 mmol/L (136-145)
--- NOTE | 2025-02-02 08:55 | Pharmacy Report ---
Pharmacy PK ABX Note - Date of Service February 02, 2025 - Assessment and Plan Assessment 02/02 * Vancomycin level this Am was ~16 mcg/ml - current vancomycin regimen associated with goal AUC/LOS therefore will continue the same. Still awaiting finalized cultures. ID consulted. No indication for emergent washout of shoulder per Ortho. 01/31 * 69 year old M receiving Vancomycin/zosyn for treatment of septic left shoulder. Pertinent microbiologic data includes: Left shoulder growing S. aureus (sensitivities pending), blood cultures negative at 24 hours, synovial fluid pending Plan Vancomycin * Continue 1250 mg iv q 12 hours Pharmacy will continue to follow and will adjust dose/frequency as necessary. Thank you. Pharmacy has transitioned to AUC monitoring for vancomycin. AUC/LOS is the preferred PK/PD target and is associated with decreased risk of nephrotoxicity compared to traditional trough targets.
--- NOTE | 2025-02-02 11:13 | Infectious Disease Consult ---
Date of Service February 02, 2025 Telehealth Information I performed this visit using a real-time telehealth connection between my location and the patients location ([facility]). After connecting through interactive tele-video, patient was identified by name and date of and/or wristband check.Patient (or authorized healthcare cash application representative) was informed that this was a telemedicine visit and it was being conducted confidentially over secure lines. My office door was closed and no o ne else was present in the room with me.Patient (or authorized healthcare cash application representative) provided consent to proceed with the visit, expressed an understanding of privacy and security of the telemedicine visit, and gave permission to have a hospital cash application representative in the room in order to assist with the visit and to conduct portions of the visit, as needed. I informed the patient (or authorized healthcare cash application representative) that I reviewed their record and presented the opportunity for them to ask any questions regarding the visit today. The patient agreed to participate. Septic Joint Assessment & Plan (1) Septic joint of left shoulder region: Plan: Recommend D&I (2) MSSA (methicillin susceptible Staphylococcus aureus) infection: Plan: Discontinue zosyn and vancomycin and start cefazolin Plan Recommend discontinuing zosyn and vancomycin and starting ancef .He will require 4-6 weeks of IV antibiotics post debridement .Thank you for allowing us to participate in the care of this patient ID will sign off History of Present Illness History of Present Illness 69 y/o M PMHx severe persistent asthma, allergic bronchopulmonary aspergillosis, JOANN not on CPAP, chronic sinusitis, hypertension, mild aortic valve stenosis, osteoporosis, chronic inflammatory demyelinating polyneuropathy, and hearing loss of right ear who presented to the ED on 01/30/2025 with fevers, left shoulder pain, and nausea and was admitted for possible sepsis.His left shoulder was aspirated and his wound cultures have grown MSSA and he is currently on zosyn and vancomycin .There is a plan to transfer him to [place] as there are no immediate plans for surgical intervention Allergies Allergy/AdvReac Type Severity Reaction Status Date / Time amoxicillin AdvReac Intermediate made me Verified 01/30/25 08:14 feel weird Home Medications Medication Instructions Recorded Confirmed Type albuterol sulfate 2.5 mg/3 mL 1 vial continuous nebulization Q4 08/13/18 01/30/25 History (0.083 %) solution for nebulization PRN Shortness Of Breath Or Wheezing albuterol sulfate 90 mcg/actuation 2 puff inhalation Q4 PRN Shortness 08/13/18 01/30/25 History aerosol inhaler Of Breath Or Wheezing fluticasone 500 mcg-salmeterol 50 1 puff inhalation BID 08/13/18 01/30/25 History mcg/dose blistr powdr for inhalation metoprolol succinate 25 mg 25 mg PO QAM 08/13/18 01/30/25 History tablet,extended release 24 hr mometasone 50 mcg/actuation nasal 2 spray intranasal DAILY 08/13/18 01/30/25 History spray montelukast 10 mg tablet 10 mg PO QAM 08/13/18 01/30/25 History cyclobenzaprine 5 mg tablet 5 mg PO BID PRN Muscle Spasm 09/15/21 01/30/25 History duloxetine 60 mg capsule,delayed 60 mg PO DAILY 09/15/21 01/30/25 History release gabapentin 100 mg capsule 100 - 300 mg PO HS 09/15/21 01/30/25 History mepolizumab 100 mg subcutaneous 100 mg subcut UD 09/15/21 01/30/25 History solution (Nucala) tiotropium bromide 2.5 2 puff inhalation QAM 09/15/21 01/30/25 History mcg/actuation mist for inhalation (Spiriva Respimat) hydralazine 25 mg tablet 25 mg PO Q4H PRN When BP is over 01/30/25 01/30/25 History 160/100 potassium chloride 20 mEq 40 meq PO QAM 01/30/25 01/30/25 History tablet,extended release(part/cryst) prednisone 10 mg tablet 10 mg PO DAILY 01/30/25 01/30/25 History torsemide 10 mg tablet 10 mg PO QAM 01/30/25 01/30/25 History Patient History Medical History (Updated 02/02/25 @ 12:19 by Neema Garcia MD) Benign essential HTN Ulcer of left knee Cellulitis Encounter for pre-operative examination Encounter for pre-operative examination Multiple fractures of ribs of right side Peripheral edema Tachycardia Abdominal pain Back pain Weakness Severe sepsis Osteoarthritis of wrists, bilateral Diminished pulses in lower extremity Acute hypoxemic respiratory failure Bilateral pneumonia Bacterial pneumonia Acute hypoxic respiratory failure Wrist arthritis Swelling of left wrist MSSA bacteremia Aortic stenosis Fever Nausea History of recent pneumonia SUSAN (acute kidney injury) Ambulates with cane Hernia Surgical History History of colonoscopy History of tooth extraction History of tonsillectomy Status post uvulopalatopharyngoplasty History of ear surgery mastoid sx S/P hernia surgery Family History Grandfather (Paternal) Family history of diabetes mellitus Grandfather (Maternal) Family history of diabetes mellitus Family history of esophageal cancer Other Asthma No family history of adverse response to anesthesia Social History (Updated 01/30/25 @ 12:49 by JOSEY Belle) Smoking Status: Never smoker Second Hand Exposure: No; Do You Dip or Chew Tobacco: No (quit 10 years ago); Hx Alcohol Use: Yes Alcohol type: beer Alcohol Intake Frequency: Monthly or Less Hx Substance Use: No Preferred Language: Italian Communication Ability: Effective Model Maker Scale Required: No Beliefs That Will Affect Care: None Current Living Situation: Spouse current occupational status: employed Feels Safe at Home: Yes Safety Concerns: Feels Safe At This Time Assistive Devices: Brace/Splint/Immobilizer and Cane Review of Systems awake alert oriented Physical Exam No respiratory distress Results & Data Vital Signs (Past 12 Hours) Vital Signs Temp Pulse Resp BP Pulse Ox O2 Del Method 02/02/25 07:40 36.4 C L 94 H 18 166/111 H 97 Room Air 02/02/25 02:59 36.7 C 109 H 18 142/91 H 97 Room Air 02/01/25 23:43 36.8 C 88 18 136/88 95 Room Air Laboratory Results S aureus RX M.I.C. --- --------- Clindamycin R >4 Daptomycin S <=0.5 Erythromycin R >4 Linezolid S 2 Oxacillin S 0.5 Tetracycline R >8 Trimeth/Sulfa S <=0.5/9.5 Vancomycin S 1 S = SENSITIVE I = INTERMEDIATE R = RESISTANT Diagnostic Findings IMPRESSION: 1. Exam moderately compromised by motion artifact. 2. Markedly abnormal appearance of the glenohumeral joint consistent with severe chronic osteoarthritis with chronic remodeling of the left humeral head and glenoid. 3. Marked marrow edema within the left humeral head and neck with patchy diminished T1 marrow signal. This is likely on a degenerative basis. Although less likely, acute osteomyelitis could appear similar. 4. Large complex glenohumeral joint effusion and a markedly distended subacromial/subdeltoid bursa. Again, these findings are probably degenerative however an infectious process could appear similar and should be correlated with fluid sampling from recent aspiration. 5. Extensive rotator cuff tears, as described above. Tear of the proximal long head of the biceps tendon. 6. Extensive soft tissue edema adjacent to the left shoulder. Multifocal intramuscular edema.
--- NOTE | 2025-02-02 11:19 | Orthopedic Progress Note ---
Date of Service February 02, 2025 Assessment & Plan (1) Long-term current use of steroids: (2) Chronic inflammatory demyelinating neuropathy: (3) JOANN (obstructive sleep apnea): (4) Rotator cuff arthropathy of left shoulder: (5) Septic joint of left shoulder region: Plan: Patient has a chronically infected left shoulder in the setting of underlying rotator cuff tear arthropathy. Clinically he is stable on IV vancomycin and Zosyn. Has improved since aspiration and starting abx No indication for any emergent washout of his shoulder given the fact that he is clinically stable and joint cartilage is already destroyed. In terms of the definitive treatment for his chronically infected left shoulder this needs to be managed by a shoulder specialist at a tertiary care facility. Dr Bond spoke with Dr. Theron Hawkins at [facility] about the patient. He is going to help coordinate outpatient follow-up for Mr. Gao in the next 1 to 2 weeks to see him and infectious diseases at [facility] on the same day to discuss patient's treatment options - patient is aware of this May transition to suppressive oral antibiotic therapy (i.e. Keflex) and discharge to follow-up as above assuming he remains clinically stable. Pain medication and DVT prophylaxis per the primary team. All of patients questions were addressed this morning. Admission and Anticipated Discharge Date Admission Date: January 30, 2025 Subjective Patient is seen and examined at bedside Left shoulder pain is slightly better when compared to when I last saw him Wound cultures growing MSSA - pt is aware No questions or concerns today Physical Exam Physical Exam: Left shoulder: Patient shoulder appears less swollen than when I last saw him. No redness or warmth. He is much less tender to palpate about his shoulder. He does still have some tenderness over the anterior glenohumeral joint line and the AC joint. His range of motion has improved since I last saw him he is able to actively forward flex and abduct to 90 degrees almost. He can internally rotate to the lower part of his back and externally rotate still about 5 to 10 degrees beyond neutral. Results & Data Vital Signs (Past 12 Hours) Vital Signs Temp Pulse Resp BP Pulse Ox O2 Del Method 02/02/25 07:40 36.4 C L 94 H 18 166/111 H 97 Room Air 02/02/25 02:59 36.7 C 109 H 18 142/91 H 97 Room Air 02/01/25 23:43 36.8 C 88 18 136/88 95 Room Air
--- NOTE | 2025-02-02 17:43 | Hospitalist Progress Note ---
Date of Service February 02, 2025 Assessment & Plan (1) Sepsis: (2) Left shoulder pain: (3) Chronic inflammatory demyelinating neuropathy: (4) Long-term current use of steroids: (5) Asthma: (6) Allergic bronchopulmonary aspergillosis: (7) HTN (hypertension): Plan 69 year old male with PMH significant for severe persistent asthma, allergic bronchopulmonary aspergillosis, JOANN not on CPAP, chronic sinusitis, hypertension, mild aortic valve stenosis, osteoporosis, chronic inflammatory demyelinating polyneuropathy, and hearing loss of right ear who presented to the ED on 01/30/2025 with fevers, left shoulder pain, and nausea and is admitted for possible sepsis. Sepsis--POA Left shoulder septic joint--POA Underlying rotator cuff tear arthropathy --Shoulder MRI:Markedly abnormal appearance of the glenohumeral joint consistent with severe chronic osteoarthritis with chronic remodeling of the left humeral head and glenoid. Marked marrow edema within the left humeral head and neck with patchy diminished T1 marrow signal. This is likely on a degenerative basis. Although less likely, acute osteomyelitis could appear similar. Large complex glenohumeral joint effusion and a markedly distended subacromial/subdeltoid bursa. Again, these findings are probably degenerative however an infectious process could appear similar and should be correlated with fluid sampling from recent aspiration. Extensive rotator cuff tears, as described above. Tear of the proximal long head of the biceps tendon. Extensive soft tissue edema adjacent to the left shoulder. Multifocal intramuscular edema. -- Blood cultures negative to date --Synovial fluid cultures grew MSSA -- Received IV fluids --Continue IV vancomycin, Zosyn>> IV cefazolin --Appreciate orthopedics input: No emergent for washout of the shoulder. --Appreciate infectious disease input .needs 4 to 6-week course of antibiotics post debridement. --Needs to follow-up with orthopedic surgery at tertiary care facility on discharge for definitive treatment --PICC line placement Plan to discharge once IV antibiotics arranged Multiple sclerotic lesions DD: Multiple myeloma/Osteosclerotic plasmacytoma with neuropathy/POEMS Syndrome Paraproteinemia on prior admission --CT showed:Lower thoracic vertebrae multiple sclerotic lesions --Electrophoresis/immunofixation studies pending --Normal TSH, PSA levels --ECHO: Mild concentric LVH. EF 60 to 65%. Aortic valve is moderately calcified. Moderate valvular aortic stenosis. Grade 1 diastolic dysfunction. --Will need lumbar puncture/Bone Scan and Hematology eval eventually likely as outpatient Advised to follow-up with hematology/oncology as outpatient Chronic inflammatory demyelinating polyneuropathy Follows with [facility] Neurology last seen Jul 2024 Receives IVIG monthly (x4 days in a row once a month) - next due 02/03-02/06 Continue duloxetine and gabapentin Appreciate neurology input Continue prednisone for CIDP Severe persistent asthma Allergic bronchopulmonary aspergillosis Chronic sinusitis/rhinitis Follows with [facility] Pulmonology last seen August 2024 Biofire negative VBG WNL --Chest CTA no PE; atelectatic bands in right middle lobe; mild subpleural interstitial thickening in posterior segments of both lower lobes; wall thickening in bronchi in both lower lobes likely bronchitis; cardiac LV myocardial hypertrophy Continue inhalers, montelukast and mometasone Appreciate pulmonology input Hypertension Blood pressure elevated likely situational secondary to pain Continue metoprolol, torsemide Added amlodipine 5 mg daily Hydralazine as needed Blood pressure variable Continue current medications Mood disorder Continue home medications DVT Px: SQ Lovenox CODE STATUS Full code Disposition: Expect to discharge home in next 24 to 48 hours Admission and Anticipated Discharge Date Admission Date: January 30, 2025 Subjective Patient is seen and examined at bedside Left shoulder pain much improved per patient Discussed with orthopedics, infectious disease today No other complaints Eager to get discharged Denies any chest pain, dyspnea, abdominal pain Review of Systems Review of Systems: All systems reviewed & are unremarkable except as noted in Subjective Physical Exam Physical Exam: Physical Exam: Vitals signs as noted above General Appearance: Overweight, no apparent distress Head: normocephalic, Atraumatic Eyes: normal inspection, EOMI Neck: supple, Trachea midline Respiratory/Chest: Normal breath sounds, expiratory wheeze, No accessory muscle use Cardiovascular: S1, S2, + murmur Abdomen/GI:Soft, Non tender, Bowel sounds present Extremities/Musculoskeletal:normal inspection, right foot drop, left foot petechial rash Neurologic/Psych:AAOX3, grossly no focal neurological deficits Skin: normal color, warm Results & Data Results & Data Vital Signs (Past 12 Hours) Vital Signs Temp Pulse Resp BP Pulse Ox O2 Del Method 02/02/25 15:35 36.4 C L 101 H 18 121/80 94 Room Air 02/02/25 11:38 36.7 C 88 18 127/84 94 Room Air 02/02/25 07:40 36.4 C L 94 H 18 166/111 H 97 Room Air Laboratory Results Short CBC 02/02/25 Range/Units 05:44 WBC 7.84 (4.8-10.8) K/ul Hgb 9.8 L (14.0-18.0) g/dl Hct 30.8 L (42.0-52.0) % Plt Count 397 (130-400) K/uL BMP 02/02/25 05:44 Sodium 140 Potassium 3.7 Chloride 104 Carbon Dioxide 26 BUN 14 Creatinine 0.90 Glucose 78 Calcium 9.0
[2025-02-03 06:34] LABS: Creatinine Clr Calc Pharmacy 102.9 ml/min
[2025-02-03 07:36] VITALS: RESP 18
[2025-02-03 08:39] LABS: Albumin 2.2 g/dL (3.8-4.8); Beta-1-Globulin 0.3 g/dL (0.4-0.6); Gamma Globulin 0.8 g/dL (0.8-1.7); Total Protein 5.4 g/dL (6.1-8.1)
[2025-02-03 09:07] LABS: Protein, Urine Random 17 mg/dL (5-25); Ur Albumin % 24 %; Ur Alpha-1-globulin % 16 %; Ur Alpha-2-globulin % 27 %; Ur Beta Globulin % 12 %; Ur Gamma Globulin % 21 %; Ur Protein/Creat Ratio mg/g 321 mg/g creat (25-148); Urine Abnormal Protein Band 1 DNR mg/dL (NONE DETECTED); Urine Abnormal Protein Band 2 DNR mg/dL (NONE DETECTED)
--- NOTE | 2025-02-03 09:39 | Orthopedic Progress Note ---
Date of Service February 03, 2025 Assessment & Plan (1) Long-term current use of steroids: (2) Chronic inflammatory demyelinating neuropathy: (3) JOANN (obstructive sleep apnea): (4) Rotator cuff arthropathy of left shoulder: (5) Septic joint of left shoulder region: Plan: Patient has a chronically infected left shoulder in the setting of underlying rotator cuff tear arthropathy. IV antibiotics changed from Vanco and Zosyn to Ancef Patient states that his shoulder pain has decreased after having the guided aspiration Patient states that he is scheduled to see one of the shoulder specialists in [place] next Sunday along with infectious disease. They will coordinate what type of intervention will be necessary to treat his condition. Medicine is ordered a PICC line to be placed. Case management has sent a request to chart well for the patient to receive the necessary antibiotics. Patient states that his has administered antibiotics through the PICC line in the past and would be willing to do it again. However, they may need home health to come in and help with the first few infusions. Pain medication and DVT prophylaxis per the primary team. All of patients questions were addressed this morning. Admission and Anticipated Discharge Date Admission Date: January 30, 2025 Subjective This 69-year-old male seen today for follow-up of left shoulder chronic septic arthritis. He states the pain in his shoulder is much better today. Patient states that he has met with infectious disease and they have changed his antibiotics from Zosyn and vancomycin to Ancef. He states that the hospitalist doctor told him that he will need to go home on a PICC line. He states that he has a follow-up scheduled in [place] next week to meet with one of the shoulder specialists. Currently denies chest pain, shortness of breath, fever, chills, sweats, nausea, vomiting, diarrhea, difficulty voiding or significant numbness o r tingling in his left upper extremity. Review of Systems Review of Systems: All systems reviewed & are unremarkable except as noted in Subjective Physical Exam Physical Exam: Left shoulder: Forward flexion and abduction limited to about 80 degrees. Patient has significant weakness with light resistance in these positions. Perley's test with thumbs pointing downward at 0 and 30 degrees is positive. Empty can test is positive. Abducted external rotation is limited to about 80 degrees and internal rotation to T10. Patient has no pain with crossarm testing. He experiences tenderness to palpation over the glenohumeral groove and AC joint. He has no tenderness over the bicipital groove. He is able to reach terminal flexion and extension at his elbow. Has full range of motion of his hand wrist and fingers. He is able to detect light sensation to touch over the pads of all digits. His peripheral pulses are 2+. Results & Data Vital Signs (Past 12 Hours) Vital Signs Temp Pulse Pulse Resp BP BP Pulse Ox 02/03/25 07:36 36.5 C 93 H 18 168/96 H 97 02/03/25 03:08 36.4 C L 91 H 20 161/84 H 93 02/02/25 23:06 36.3 C L 90 18 146/93 H 95 02/02/25 21:34 96 H O2 Del Method 02/03/25 07:36 Room Air 02/03/25 03:08 Room Air 02/02/25 23:06 Room Air 02/02/25 21:34 Diagnostic Findings Laboratory Results WBC 7.84 K/ul (4.8-10.8) 02/02/25 05:44 RBC 3.27 M/uL (4.70-6.10) L 02/02/25 05:44 Hgb 9.8 g/dl (14.0-18.0) L 02/02/25 05:44 Hct 30.8 % (42.0-52.0) L 02/02/25 05:44 MCV 94.2 fL (80.0-100.0) 02/02/25 05:44 MCH 30.0 pg (25.0-34.0) 02/02/25 05:44 MCHC 31.8 g/dL (32.0-36.0) L 02/02/25 05:44 RDW Std Deviation 49.4 fL (36.4-46.3) H 02/02/25 05:44 RDW Coeff of Karishma 14.5 % (11.5-14.5) 02/02/25 05:44 Plt Count 397 K/uL (130-400) 02/02/25 05:44 MPV 9.3 fL (9.4-12.4) L 02/02/25 05:44 Immature Gran % (Auto) 0.6 % 02/02/25 05:44 Neut % (Auto) 73.3 % 02/02/25 05:44 Lymph % (Auto) 16.3 % 02/02/25 05:44 Dubois % (Auto) 8.7 % 02/02/25 05:44 Eos % (Auto) 0.8 % 02/02/25 05:44 Baso % (Auto) 0.3 % 02/02/25 05:44 Neut # (Auto) 5.75 K/uL (1.40-6.50) 02/02/25 05:44 Lymph # (Auto) 1.28 K/uL (1.20-3.40) 02/02/25 05:44 Dubois # (Auto) 0.68 K/uL (0.11-0.59) H 02/02/25 05:44 Eos # (Auto) 0.06 K/uL (0.00-0.50) 02/02/25 05:44 Baso # (Auto) 0.02 K/uL (0.00-0.20) 02/02/25 05:44 Immature Gran # (Auto) 0.05 K/uL (0.01-0.20) 02/02/25 05:44 PT 11.2 Seconds (9.0-12.0) 01/30/25 04:55 INR 1.0 (0.9-1.1) 01/30/25 04:55 VBG pH 7.36 (7.36-7.41) 01/30/25 04:55 VBG pCO2 48 mmHg (38-50) 01/30/25 04:55 VBG pO2 30 mmHg 01/30/25 04:55 VBG HCO3 27 mmol/L 01/30/25 04:55 VBG O2 Saturation < 60.0 % 01/30/25 04:55 VBG Base Excess 1.0 mEq/L 01/30/25 04:55 Sodium 140 mmol/L (136-145) 02/02/25 05:44 Potassium 3.7 mmol/L (3.5-5.1) 02/02/25 05:44 Chloride 104 mmol/L (98-107) 02/02/25 05:44 Carbon Dioxide 26 mmol/L (21-32) 02/02/25 05:44 Anion Gap 10 (3-11) 02/02/25 05:44 BUN 14 mg/dl (6-23) 02/02/25 05:44 Creatinine 0.81 mg/dl (0.6-1.4) 02/03/25 05:55 Est Cr Clr Drug Dosing 102.9 ml/min 02/03/25 05:55 eGFR 94.85 02/03/25 05:55 BUN/Creatinine Ratio 15.6 (10-20) 02/02/25 05:44 Glucose 78 mg/dl (70-99(Fasting)) 02/02/25 05:44 Lactate 1.4 mmol/L (0.4-2.0) 01/30/25 07:35 Calcium 9.0 mg/dl (8.6-10.3) 02/02/25 05:44 Magnesium 2.2 mg/dl (1.7-2.4) 02/02/25 05:44 Total Bilirubin 0.7 mg/dl (0.2-1.0) 01/30/25 04:55 Direct Bilirubin 0.1 mg/dl (0-0.2) 01/30/25 04:55 AST 15 U/L (13-39) 01/30/25 04:55 ALT 10 U/L (7-52) 01/30/25 04:55 Alkaline Phosphatase 69 U/L (34-104) 01/30/25 04:55 Troponin I High Sens 8.9 pg/ml (0-20) 01/30/25 04:55 Total Protein 7.6 gm/dl (6.0-8.3) 01/30/25 04:55 Total Protein (PEP) 5.4 g/dL (6.1-8.1) L 01/30/25 11:08 Albumin 3.2 gm/dl (3.4-5.0) L 01/30/25 04:55 Albumin (PEP) 2.2 g/dL (3.8-4.8) L 01/30/25 11:08 Cfpum-3-Vncupwsmg 0.6 g/dL (0.2-0.3) H 01/30/25 11:08 Cfsmw-8-Iedhofnvx 1.0 g/dL (0.5-0.9) H 01/30/25 11:08 Vayz-9-Arskwufw 0.3 g/dL (0.4-0.6) L 01/30/25 11:08 Uipk-9-Ntmykhqb 0.5 g/dL (0.2-0.5) 01/30/25 11:08 Gamma Globulins 0.8 g/dL (0.8-1.7) 01/30/25 11:08 Monoclonal Peak 3 DNR g/dL (NONE DETECTED) 01/30/25 11:08 Ser Monoclonl Protein DNR g/dL (NONE DETECTED) 01/30/25 11:08 Ser Monoclonal Prot 2 DNR g/dL (NONE DETECTED) 01/30/25 11:08 PEP Interpretation SEE NOTE 01/30/25 11:08 Lipase 24 U/L (11-82) 01/30/25 04:55 Prostate Specific Ag 3.546 ng/ml (0-4) 01/31/25 08:11 Procalcitonin 0.31 ng/ml (0-0.5) 01/30/25 04:55 TSH 1.072 uIu/ml (0.300-4.500) 01/30/25 04:55 Random Cortisol 19.56 mcg/dl 01/30/25 04:55 Cortisol AM Sample 13.94 mcg/dl (6.2-22.6) 01/31/25 08:11 Urine Color Yellow 01/30/25 07:23 Urine Appearance Clear (Clear) 01/30/25 07:23 Urine pH 6.0 (4.5-7.5) 01/30/25 07:23 Ur Specific [place] > 1.045 (1.000-1.030) H 01/30/25 07:23 Urine Protein Negative (Negative) 01/30/25 07:23 Urine Glucose (UA) Negative (Negative) 01/30/25 07:23 Urine Ketones 1+ (Negative) H 01/30/25 07:23 Urine Blood Negative (Negative) 01/30/25 07:23 Urine Nitrite Negative (Negative) 01/30/25 07:23 Urine Bilirubin Negative (Negative) 01/30/25 07:23 Urine Urobilinogen Negative (Negative) 01/30/25 07:23 Ur Leukocyte Esterase Negative (Negative) 01/30/25 07:23 U Random Total Protein 17 mg/dL (5-25) 01/30/25 20:14 Ur Creatinine mg/dL 53 mg/dL (20-320) 01/30/25 20:14 Protein/Creatinin Ratio 0.321 (0.025-0.148) H 01/30/25 20:14 Urine Albumin (%) 24 % 01/30/25 20:14 U Ugqpc-2-Kqsazgdq (%) 16 % 01/30/25 20:14 U Fhjpe-4-Vgtrhovo (%) 27 % 01/30/25 20:14 U Beta Globulin (%) 12 % 01/30/25 20:14 U Gamma Globulin (%) 21 % 01/30/25 20:14 U Abnormal Prot Band 1 DNR mg/dL (NONE DETECTED) 01/30/25 20:14 U Abnormal Prot Band 2 DNR mg/dL (NONE DETECTED) 01/30/25 20:14 U Abnormal Prot Band 3 DNR mg/dL (NONE DETECTED) 01/30/25 20:14 Urine PEP Interpret SEE NOTE 01/30/25 20:14 Urine Comment 01/30/25 07:23 Fluid Comment 01/30/25 Unknown CSF Albumin Cancelled 01/30/25 11:08 CSF IgG Cancelled 01/30/25 11:08 CSF IgG Index Cancelled 01/30/25 11:08 CSF IgG Synthesis Rate Cancelled 01/30/25 11:08 CSF Myelin Basic Protein Cancelled 01/30/25 11:08 CSF IgG Oligoclonal Bnd Cancelled 01/30/25 11:08 Synovial Source Shoulder 01/30/25 Unknown Synovial Color Pale Yellow 01/30/25 Unknown Synovial Appearance Cloudy 01/30/25 Unknown Synovial WBC (Auto) 61885 /ul (0-200) H 01/30/25 Unknown Synovial RBC (Auto) 04067 /uL 01/30/25 Unknown Synovial Polynuclear % 98.6 % 01/30/25 Unknown Synovial Mononuclear % 1.4 % 01/30/25 Unknown Synovial Crystals 01/30/25 Unknown Nasal Screen MRSA (PCR) Negative (Negative) 01/30/25 Unknown Random Vancomycin 16.0 mcg/ml (10-20) 02/02/25 05:44 IgG Cancelled 01/30/25 11:08 Serum Immunofixation SEE NOTE 01/30/25 11:08 Albumin (LENO) Cancelled 01/30/25 11:08 Adenovirus (PCR) Not Detected (NotDetected) 01/30/25 04:52 Anaplasma Smear See Comment 01/30/25 04:55 Babesia Smear See Comment 01/30/25 04:55 B. pertussis DNA (PCR) Not Detected (NotDetected) 01/30/25 04:52 B.parapertussis DNA PCR Not Detected (NotDetected) 01/30/25 04:52 Lyme Disease Screen Negative (Negative) 01/30/25 04:55 C. pneumoniae DNA (PCR) Not Detected (NotDetected) 01/30/25 04:52 Coronavirus OC43 (PCR) Not Detected (NotDetected) 01/30/25 04:52 Coronavirus HKU1 (PCR) Not Detected (NotDetected) 01/30/25 04:52 Coronavirus 229E (PCR) Not Detected (NotDetected) 01/30/25 04:52 SARS-CoV-2 (PCR) Not Detected (NotDetected) 01/30/25 04:52 Coronavirus NL63 (PCR) Not Detected (NotDetected) 01/30/25 04:52 Human Metapneumovir PCR Not Detected (NotDetected) 01/30/25 04:52 Influenza Type A (PCR) Not Detected (NotDetected) 01/30/25 04:52 Influenza Type B (PCR) Not Detected (NotDetected) 01/30/25 04:52 M. pneumoniae (PCR) Not Detected (NotDetected) 01/30/25 04:52 Parainfluenza 1 (PCR) Not Detected (NotDetected) 01/30/25 04:52 Parainfluenza 2 (PCR) Not Detected (NotDetected) 01/30/25 04:52 Parainfluenza 3 (PCR) Not Detected (NotDetected) 01/30/25 04:52 Parainfluenza 4 (PCR) Not Detected (NotDetected) 01/30/25 04:52 RSV (PCR) Not Detected (NotDetected) 01/30/25 04:52 Entero/Rhino (PCR) Not Detected (NotDetected) 01/30/25 04:52 Impressions Arthrography Joint Steriod Inject 01/30/25 00:00 Fluoroscopic guided left shoulder joint aspiration INDICATION: Left shoulder joint effusion PROCEDURE: Procedure and risks were explained. Informed consent was obtained. A final timeout was completed. The left shoulder was prepped and draped in sterile fashion. 1% lidocaine was utilized for skin anesthesia. Utilizing fluoroscopic guidance, a 22-gauge spinal needle was advanced into the left shoulder joint capsule. Approximately 4 mL of cloudy viscous yellow-tinged fluid was aspirated and sent to lab for analysis. The needle was removed and Band-Aid applied. The patient tolerated the procedure well. Total fluoroscopy time 12 seconds. Study dose is 3.19mGy. IMPRESSION: Left shoulder joint aspiration as above. Performed, dictated, and signed by Sukhi Gabriel PA-C; to be co-signed by Dr. Zaheer Alfaro. Electronically signed by: Zaheer Alfaro M.D. 01/30/2025 2:48 PM Chest X-Ray 01/30/25 04:39 EXAM: XR chest 1V portable CLINICAL HISTORY: Sepsis TECHNIQUE: X-ray image of the chest obtained in 1 frontal projection. COMPARISON: Prior X-ray dated 01/10/2025 for comparison. FINDINGS: Pulmonary Parenchyma: New finding of subtle haziness in right mid zone, acute infective/inflammatory changes cannot be ruled out. Unchanged atelectatic bands in right lower zone. No evidence of consolidation, collapse. No evidence of pleural effusion or pleural thickening. Heart and Mediastinum: Heart size and shape are normal. Aortic calcifications seen. No mediastinal widening or masses. No hilar or mediastinal lymphadenopathy. Bony Thorax: Bony thorax appears intact without fractures or deformities. Soft Tissues: Soft tissues overlying the chest wall are unremarkable. IMPRESSION: 1. New finding of subtle haziness in right mid zone, acute infective/inflammatory changes cannot be ruled out. 2. Unchanged atelectatic bands in right lower zone. Electronically signed by Wesley Oshea 01-30-2025 06:02 AM Abdomen/Pelvis CT 01/30/25 05:13 EXAM: CT abd pelvis IV con only CLINICAL HISTORY: Fever, nausea. TECHNIQUE: CT of the abdomen and pelvis was performed, with the following protocol: axial images with, and reconstructed coronal and sagittal images. 118ml Opitray-320mg/ml Intravenous contrast was administered. One of the following dose reduction techniques was utilized for this exam: Automated exposure control, adjustment of the mA and/or kV according to patient size, and use of iterative reconstruction. COMPARISON: None. FINDINGS: Abdomen: Liver: Normal in size, shape, and density. No focal lesions, cysts, or masses were identified. Hepatic vasculature and biliary ducts are unremarkable. Gallbladder and Biliary System: The gallbladder is normal in size and shape. No wall thickening, pericholecystic fluid, or gallstones were identified. The common bile duct is normal in caliber without dilation. Pancreas: Pancreatic head, body, and tail are visualized and appear normal in size and density. No pancreatic masses or calcifications were noted. The pancreatic duct is not dilated. Spleen: Normal in size, shape, and density. No splenic lesions or masses were identified. Appendix: The appendix is not visualized. Kidneys and Adrenal Glands: Duplex left kidney. Both kidneys are normal in size, shape, and position. Cortical thickness is within normal limits. No renal calculi or hydronephrosis. Adrenal glands are unremarkable with no evidence of masses or hyperplasia. Pelvis: Urinary Bladder: Normal in contour and wall thickness. No intraluminal lesions identified. Prostate: Mildly enlarged in size with small calcifications. No focal lesions or masses were identified. Seminal Vesicles: Normal in size and appearance. No abnormalities noted. Rectum and Sigmoid Colon: Normal wall thickness and no evidence of mass. Peritoneal and Retroperitoneal Structures: No free fluid or abnormal fluid collections were identified within the abdomen or pelvis. No lymphadenopathy was noted. Advanced vascular calcifications of the aorta and its main branches. Bowel: The visualized bowel loops are normal in caliber and appearance. No evidence of bowel obstruction or wall thickening. Bones and Soft Tissues: Pelvic bones and soft tissues are unremarkable. No fractures or abnormal masses were identified. Right lower abdominal wall and inguinal mesh (post-hernia repair). Small left inguinal hernia containing fat. Mild atelectasis in the lower lung lobes. Advanced lumbar spondylotic changes with multilevel posterior disc osteophyte complexes. Lower thoracic vertebrae multiple sclerotic lesions (MRI or bone scan is advised if clinically indicated). Multiple lower ribs old fractures. IMPRESSION: 1. No evidence of acute intra-abdominal or pelvic pathology. 2. Lower thoracic vertebrae multiple sclerotic lesions (MRI or bone scan is advised if clinically indicated). 3. Other findings as described. Electronically signed by Wesley Oshea 01-30-2025 07:19 AM Chest CTA 01/30/25 05:13 EXAM: CT angio chest PE protocol CLINICAL HISTORY: PE TECHNIQUE: Contiguous 3.[address] angiographic images of the chest were acquired with the administration of intravenous contrast. Coronal and sagittal reconstructions were obtained. One of these 3D techniques was utilized: Maximum Intensity Pixel (MIP), 3D Reconstructed Images, Volume Rendered Images, Surface Shaded Rendering. One of the following dose reduction techniques were utilized for this exam: Automated exposure control, adjustment of the mA and/or kV according to patient size, and use of iterative reconstruction. COMPARISON: Prior X-ray dated 01/30/2025. FINDINGS: Aorta: Atherosclerotic wall calcifications in aorta. The thoracic aorta is normal in caliber. No evidence of aneurysm, dissection. Aortic arch and descending thoracic aorta are unremarkable. Pulmonary Arteries: Pulmonary arteries are normal in size and opacification. No evidence of pulmonary embolism. No stenosis or filling defects. Superior Vena Cava (SVC) and Inferior Vena Cava (IVC): Normal opacification and caliber. No evidence of thrombus or obstruction. Coronary Arteries: Coronary artery disease. Mediastinum: No mediastinal mass or lymphadenopathy. Normal appearance of the thymus. Heart: Normal size and morphology of the heart. Left ventricle myocardial hypertrophy seen. No pericardial effusion. Lungs: Few atelectatic bands in right middle lobe. Mild subpleural interstitial thickening and reticulations in posterior segments of both lower lobes. Wall thickening in segmental/subsegmental bronchi in both lower lobes likely bronchitis. No evidence of consolidation, nodules, or masses. No pleural effusion or thickening. Bones: Old healed fractures in multiple bilateral ribs. Spondylotic changes in thoracic spine. Multiple sclerotic lesions in lower thoracic vertebral bodies Normal alignment and bone density. Soft Tissues: Normal appearance of rest of visualized soft tissues. IMPRESSION: 1. No evidence of pulmonary embolism. 2. Few atelectatic bands in right middle lobe. 3. Mild subpleural interstitial thickening and reticulations in posterior segments of both lower lobes. 4. Wall thickening in segmental/subsegmental bronchi in both lower lobes likely bronchitis. 5. Subtle haziness in right mid zone in prior X-ray not appreciated in CT likely artefactual. 6. Cardiac left ventricle myocardial hypertrophy. 7. Multiple sclerotic lesions in lower thoracic vertebral bodies, need clinical correlation if needed, further work-up. Electronically signed by Wesley Oshea 01-30-2025 07:[address] 01/30/25 10:32 CT shoulder LT wo con HISTORY: 69 years-old Male pain, swelling, decr ROM history pain and swelling of the left shoulder with limited range of motion. COMPARISON: Chest radiograph and CTA chest studies of same day, chest CT 09/14/2023. TECHNIQUE: Axial CT images of the left shoulder were obtained without IV contrast. A dose lowering technique was used consistent with the principals of ALARA. FINDINGS: Demineralized appearance of the bones. Severe osteoarthritis of the glenohumeral joint with chronic remodeling. Degenerative related moderate to large joint effusion with intra-articular debris/ossified loose bodies again noted. Mild to moderate osteoarthritis of the AC joint. No acute fracture or dislocation identified. Prominent subcortical cystic changes of the humeral head. Synovial calcifications. Chronic healed nondisplaced left rib fractures. Scattered sclerotic foci involving a few ribs and vertebral bodies again noted, several which have increased in size from 09/14/2023. [id number] atrophy of the rotator cuff compatible with at least chronic partial-thickness tearing of the rotator cuff tendons. Lung garza are better evaluated on the same day CTA chest. Cardiomegaly with coronary artery calcifications. IMPRESSION: 1. No acute fracture or dislocation identified. 2. Severe glenohumeral osteoarthritis with chronic remodeling. 3. Degenerative related moderate to large glenohumeral joint effusion with synovial calcifications, intra-articular debris with calcified loose bodies. 4. Scattered nonspecific sclerotic foci of the vertebral bodies and ribs are again noted, mildly progressed from 09/14/2023. Findings can be correlated with serum PSA. ACT 112: Negative or not required by law. The above report was generated using voice recognition software. It may contain grammatical, syntax or spelling errors. Electronically signed by: Sammy Wright M.D. 01/30/2025 12:36 PM Shoulder MRI 01/30/25 12:37 MRI OF THE LEFT SHOULDER WITHOUT CONTRAST CLINICAL HISTORY: chronic erosive shoulder jt concern for infection COMPARISON STUDY: Left shoulder radiographs January 10, 2025. Left shoulder CT January 30, 2025. TECHNIQUE: Utilizing a 1.5 Rena magnet and dedicated coil, multiplanar, multiecho imaging of the left shoulder was performed without intravenous reticular or intravenous contrast. FINDINGS: This exam is moderately compromised by motion artifact. Severe gl enohumeral chondrosis is noted with extensive bony remodeling of the glenoid and the humeral head, as shown on prior radiographs and CT. Intramedullary fat- containing signal abnormality within the left humeral head and neck may represent a bone infarct. Subchondral cystic change within the left humeral head is present. There is marked marrow edema within the left humeral head with patchy diminished T1 marrow signal. There is no significant marrow edema within the glenoid. Irregularity of the glenoid is probably chronic. No definite acute fractures are present. There is moderate osteoarthritis of the acromioclavicular joint. Of note, there is a large complex glenohumeral joint effusion which contains extensive material. There is also significant distention of the subacromial/subdeltoid bursa. A complex collection along the posterior aspect of the infraspinatus communicates with the joint space or bursa. Extensive soft tissue edema adjacent to the left shoulder is present. There is extensive intramuscular edema within multiple muscles of the left shoulder. Large full- thickness tear of supraspinatus with tendon retraction and muscular atrophy is present. The majority of infraspinatus is also fully torn. Mid to posterior fibers are partially intact. There is a large full-thickness tear subscapularis. There is a tear of the proximal long head biceps tendon. A normal-appearing labrum is not visualized. IMPRESSION: 1. Exam moderately compromised by motion artifact. 2. Markedly abnormal appearance of the glenohumeral joint consistent with severe chronic osteoarthritis with chronic remodeling of the left humeral head and glenoid. 3. Marked marrow edema within the left humeral head and neck with patchy diminished T1 marrow signal. This is likely on a degenerative basis. Although less likely, acute osteomyelitis could appear similar. 4. Large complex glenohumeral joint effusion and a markedly distended subacromial/subdeltoid bursa. Again, these findings are probably degenerative however an infectious process could appear similar and should be correlated with fluid sampling from recent aspiration. 5. Extensive rotator cuff tears, as described above. Tear of the proximal long head of the biceps tendon. 6. Extensive soft tissue edema adjacent to the left shoulder. Multifocal intramuscular edema. ACT 112: Negative or not required by law. Electronically signed by: Zaheer Alfaro M.D. 01/30/2025 2:30 PM Shoulder X-Ray 01/30/25 14:25 XR shoulder RT min 2V routine CLINICAL HISTORY: Right shoulder pain. COMPARISON: Chest radiograph January 10, 2025. FINDINGS: No acute fractures within the right shoulder identified. There is severe glenohumeral joint osteophytosis with chronic remodeling of the humeral head and glenoid. Findings appear similar to chest radiograph of January 10, 2025. There is no evidence for dislocation. Several round calcific densities along the superolateral aspect of the humeral head measure up to 6 mm. These could represent joint bodies. IMPRESSION: 1. No acute fracture or dislocation within the right shoulder. 2. Severe right glenohumeral joint osteoarthritis. ACT 112: Negative or not required by law. Electronically signed by: Zaheer Alfaro M.D. 01/30/2025 2:42 PM
[2025-02-03] MEDS: ACETAMINOPHEN 325 MG TAB PO PRN (11:34)
[2025-02-03 11:39] VITALS: BP 143/91; TEMP 97.3; O2SAT 94
--- NOTE | 2025-02-03 14:34 | Hospitalist Progress Note ---
Date of Service February 03, 2025 Assessment & Plan (1) Sepsis: (2) Left shoulder pain: (3) Chronic inflammatory demyelinating neuropathy: (4) Long-term current use of steroids: (5) Asthma: (6) Allergic bronchopulmonary aspergillosis: (7) HTN (hypertension): Plan 69 year old male with PMH significant for severe persistent asthma, allergic bronchopulmonary aspergillosis, JOANN not on CPAP, chronic sinusitis, hypertension, mild aortic valve stenosis, osteoporosis, chronic inflammatory demyelinating polyneuropathy, and hearing loss of right ear who presented to the ED on 01/30/2025 with fevers, left shoulder pain, and nausea and is admitted for possible sepsis. Sepsis--POA Left shoulder septic joint--POA Underlying rotator cuff tear arthropathy --Shoulder MRI:Markedly abnormal appearance of the glenohumeral joint consistent with severe chronic osteoarthritis with chronic remodeling of the left humeral head and glenoid. Marked marrow edema within the left humeral head and neck with patchy diminished T1 marrow signal. This is likely on a degenerative basis. Although less likely, acute osteomyelitis could appear similar. Large complex glenohumeral joint effusion and a markedly distended subacromial/subdeltoid bursa. Again, these findings are probably degenerative however an infectious process could appear similar and should be correlated with fluid sampling from recent aspiration. Extensive rotator cuff tears, as described above. Tear of the proximal long head of the biceps tendon. Extensive soft tissue edema adjacent to the left shoulder. Multifocal intramuscular edema. -- Blood cultures negative to date --Synovial fluid cultures grew MSSA -- Received IV fluids --Continue IV vancomycin, Zosyn>> IV cefazolin --Appreciate orthopedics input: No emergent for washout of the shoulder. --Appreciate infectious disease input: Needs 4 to 6-week course of antibiotics post debridement. --Needs to follow-up with orthopedic surgery at tertiary care facility on discharge for definitive treatment --PICC placed today Plan to discharge home with home health today Needs follow-up with orthopedic surgeon at [facility] in 1 week--already scheduled per record/orthopedic. 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 EF 60 to 65%. Aortic valve is moderately calcified. Moderate valvular aortic stenosis. Grade 1 diastolic dysfunction. --Will need lumbar puncture/Bone Scan and Hematology eval eventually likely as outpatient Advised to follow-up with hematology/oncology as outpatient Chronic inflammatory demyelinating polyneuropathy Follows with [facility] Neurology last seen Jul 2024 Receives IVIG monthly (x4 days in a row once a month) - next due 02/03-02/06 Continue duloxetine and gabapentin Appreciate neurology input Continue prednisone for CIDP Severe persistent asthma Allergic bronchopulmonary aspergillosis Chronic sinusitis/rhinitis Follows with [facility] Pulmonology last seen August 2024 Biofire negative VBG WNL --Chest CTA no PE; atelectatic bands in right middle lobe; mild subpleural interstitial thickening in posterior segments of both lower lobes; wall thickening in bronchi in both lower lobes likely bronchitis; cardiac LV myocardial hypertrophy Continue inhalers, montelukast and mometasone Appreciate pulmonology input Hypertension Blood pressure elevated likely situational secondary to pain Continue metoprolol, torsemide Added amlodipine 5 mg daily Hydralazine as needed Blood pressure variable Continue current medications Mood disorder Continue home medications DVT Px: SQ Lovenox CODE STATUS Full code Disposition: Home with home health Admission and Anticipated Discharge Date Admission Date: January 30, 2025 Subjective Patient is seen and examined at bedside No significant left shoulder pain today Offers no other complaints Discussed with patient's family at bedside Denies any chest pain, dyspnea, abdominal pain Plan to discharge home today Review of Systems Review of Systems: All systems reviewed & are unremarkable except as noted in Subjective Physical Exam Physical Exam: Physical Exam: Vitals signs as noted above General Appearance: Overweight, no apparent distress Head: normocephalic, Atraumatic Eyes: normal inspection, EOMI Neck: supple, Trachea midline Respiratory/Chest: Normal breath sounds, expiratory wheeze, No accessory muscle use Cardiovascular: S1, S2, + murmur Abdomen/GI:Soft, Non tender, Bowel sounds present Extremities/Musculoskeletal:normal inspection, right foot drop, left foot petechial rash Neurologic/Psych:AAOX3, grossly no focal neurological deficits Skin: normal color, warm Results & Data Results & Data Vital Signs (Past 12 Hours) Vital Signs Temp Pulse Pulse Resp BP BP Pulse Ox 02/03/25 11:38 36.3 C L 91 H 18 143/91 H 94 02/03/25 07:36 36.5 C 93 H 18 168/96 H 97 02/03/25 07:30 89 02/03/25 03:08 36.4 C L 91 H 20 161/84 H 93 O2 Del Method 02/03/25 11:38 Room Air 02/03/25 07:36 Room Air 02/03/25 07:30 02/03/25 03:08 Room Air Laboratory Results BMP 02/03/25 05:55 Creatinine 0.81
[2025-02-03 14:37] VITALS: PULSE 92
--- NOTE | 2025-02-03 14:44 | Discharge Summary ---
Date of Service February 03, 2025 Admission HPI Per Admitting Provider 69 year old male with PMH significant for severe persistent asthma, allergic bronchopulmonary aspergillosis, JOANN not on CPAP, chronic sinusitis, hypertension, mild aortic valve stenosis, osteoporosis, chronic inflammatory demyelinating polyneuropathy, and hearing loss of right ear who presented to the ED on 01/30/2025 with fever, left shoulder pain and nausea. Patient reports that he has been having left shoulder pain for the last month. He denies any injury or overuse but it has gotten progressively worse and he is hardly able to move his left arm because of it. He has also felt nauseous, cold, and tired for the last 2 days. He was evaluated in our ED on 01/10/2025 and treated for pneumonia with a course of cefdinir and azithromycin. He followed up with his PCP last week with diffuse joint pain and petechial rash and was prescribed doxycycline for possible vasculitis/lyme disease. Patient reports he felt worse since taking doxy - attributes fatigue and nausea to this - and stopped taking it yesterday with 3 days left. His took his temperature overnight and it was 101, which prompted them to seek evaluation in the ED. He denies headaches, dizziness, cough, sputum, cold symptoms, chest pain, SOB, abdominal pain, vomiting, dysuria, constipation/diarrhea. Denies recent falls. 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 Denies any injuries from falls. Admission Exam Per Admitting Provider General/Psych: WD/WN, sitting up in bed, NAD, conversing easily Head: normocephalic, atraumatic Eyes: normal inspection, PERRL, conjunctivae pink ENT: external ear and nose normal, oropharynx normal Neck: normal visual inspection, trachea midline Respiratory: normal respiratory effort, lungs with expiratory wheezing in middle posterior bilateral lungs, no accessory muscle use Cardiovascular: regular rate and rhythm, +systolic murmur, no JVD Extremities: no cyanosis or clubbing, normal peripheral pulses, no BLE edema Abdomen/GI: normal bowel sounds, soft, nontender Neurologic/MSK: A+Ox3, motor strength 5/5, moves all extremities, left shoulder with limited ROM and tenderness on palpation of anterior aspect Skin: no rashes, normal color, warm and dry; swelling noted at anterior left shoulder Principal Diagnosis Septic joint of left shoulder region Sepsis Chronic Rotator cuff tear arthropathy Multiple sclerotic lesions of thoracic vertebrae Hypertension Discharge Data Allergies Allergy/AdvReac Type Severity Reaction Status Date / Time amoxicillin AdvReac Intermediate made me Verified 01/30/25 08:14 feel weird Consultations 01/30/25 08:02 ED Decision to Admit Stat 01/30/25 10:45 Consult Neurology Routine Consult Orthopedic Surgery Routine Consult Pulmonology Routine 02/02/25 07:31 Consult Infectious Diseases Routine Procedures Performed Laboratory Results WBC 7.84 K/ul (4.8-10.8) 02/02/25 05:44 RBC 3.27 M/uL (4.70-6.10) L 02/02/25 05:44 Hgb 9.8 g/dl (14.0-18.0) L 02/02/25 05:44 Hct 30.8 % (42.0-52.0) L 02/02/25 05:44 MCV 94.2 fL (80.0-100.0) 02/02/25 05:44 MCH 30.0 pg (25.0-34.0) 02/02/25 05:44 MCHC 31.8 g/dL (32.0-36.0) L 02/02/25 05:44 RDW Std Deviation 49.4 fL (36.4-46.3) H 02/02/25 05:44 RDW Coeff of Karishma 14.5 % (11.5-14.5) 02/02/25 05:44 Plt Count 397 K/uL (130-400) 02/02/25 05:44 MPV 9.3 fL (9.4-12.4) L 02/02/25 05:44 Immature Gran % (Auto) 0.6 % 02/02/25 05:44 Neut % (Auto) 73.3 % 02/02/25 05:44 Lymph % (Auto) 16.3 % 02/02/25 05:44 [place] % (Auto) 8.7 % 02/02/25 05:44 Eos % (Auto) 0.8 % 02/02/25 05:44 Baso % (Auto) 0.3 % 02/02/25 05:44 Neut # (Auto) 5.75 K/uL (1.40-6.50) 02/02/25 05:44 Lymph # (Auto) 1.28 K/uL (1.20-3.40) 02/02/25 05:44 [place] # (Auto) 0.68 K/uL (0.11-0.59) H 02/02/25 05:44 Eos # (Auto) 0.06 K/uL (0.00-0.50) 02/02/25 05:44 Baso # (Auto) 0.02 K/uL (0.00-0.20) 02/02/25 05:44 Immature Gran # (Auto) 0.05 K/uL (0.01-0.20) 02/02/25 05:44 PT 11.2 Seconds (9.0-12.0) 01/30/25 04:55 INR 1.0 (0.9-1.1) 01/30/25 04:55 VBG pH 7.36 (7.36-7.41) 01/30/25 04:55 VBG pCO2 48 mmHg (38-50) 01/30/25 04:55 VBG pO2 30 mmHg 01/30/25 04:55 VBG HCO3 27 mmol/L 01/30/25 04:55 VBG O2 Saturation < 60.0 % 01/30/25 04:55 VBG Base Excess 1.0 mEq/L 01/30/25 04:55 Sodium 140 mmol/L (136-145) 02/02/25 05:44 Potassium 3.7 mmol/L (3.5-5.1) 02/02/25 05:44 Chloride 104 mmol/L (98-107) 02/02/25 05:44 Carbon Dioxide 26 mmol/L (21-32) 02/02/25 05:44 Anion Gap 10 (3-11) 02/02/25 05:44 BUN 14 mg/dl (6-23) 02/02/25 05:44 Creatinine 0.81 mg/dl (0.6-1.4) 02/03/25 05:55 Est Cr Clr Drug Dosing 102.9 ml/min 02/03/25 05:55 eGFR 94.85 02/03/25 05:55 BUN/Creatinine Ratio 15.6 (10-20) 02/02/25 05:44 Glucose 78 mg/dl (70-99(Fasting)) 02/02/25 05:44 Lactate 1.4 mmol/L (0.4-2.0) 01/30/25 07:35 Calcium 9.0 mg/dl (8.6-10.3) 02/02/25 05:44 Magnesium 2.2 mg/dl (1.7-2.4) 02/02/25 05:44 Total Bilirubin 0.7 mg/dl (0.2-1.0) 01/30/25 04:55 Direct Bilirubin 0.1 mg/dl (0-0.2) 01/30/25 04:55 AST 15 U/L (13-39) 01/30/25 04:55 ALT 10 U/L (7-52) 01/30/25 04:55 Alkaline Phosphatase 69 U/L (34-104) 01/30/25 04:55 Troponin I High Sens 8.9 pg/ml (0-20) 01/30/25 04:55 Total Protein 7.6 gm/dl (6.0-8.3) 01/30/25 04:55 Total Protein (PEP) 5.4 g/dL (6.1-8.1) L 01/30/25 11:08 Albumin 3.2 gm/dl (3.4-5.0) L 01/30/25 04:55 Albumin (PEP) 2.2 g/dL (3.8-4.8) L 01/30/25 11:08 Oxbmf-1-Gerdmolkx 0.6 g/dL (0.2-0.3) H 01/30/25 11:08 Xfpvx-9-Vmetaiujj 1.0 g/dL (0.5-0.9) H 01/30/25 11:08 Pord-3-Lbiinhao 0.3 g/dL (0.4-0.6) L 01/30/25 11:08 Ccck-2-Akwrrsgf 0.5 g/dL (0.2-0.5) 01/30/25 11:08 Gamma Globulins 0.8 g/dL (0.8-1.7) 01/30/25 11:08 Monoclonal Peak 3 DNR g/dL (NONE DETECTED) 01/30/25 11:08 Ser Monoclonl Protein DNR g/dL (NONE DETECTED) 01/30/25 11:08 Ser Monoclonal Prot 2 DNR g/dL (NONE DETECTED) 01/30/25 11:08 PEP Interpretation SEE NOTE 01/30/25 11:08 Lipase 24 U/L (11-82) 01/30/25 04:55 Prostate Specific Ag 3.546 ng/ml (0-4) 01/31/25 08:11 Procalcitonin 0.31 ng/ml (0-0.5) 01/30/25 04:55 TSH 1.072 uIu/ml (0.300-4.500) 01/30/25 04:55 Random Cortisol 19.56 mcg/dl 01/30/25 04:55 Cortisol AM Sample 13.94 mcg/dl (6.2-22.6) 01/31/25 08:11 Urine Color Yellow 01/30/25 07:23 Urine Appearance Clear (Clear) 01/30/25 07:23 Urine pH 6.0 (4.5-7.5) 01/30/25 07:23 Ur Specific [place] > 1.045 (1.000-1.030) H 01/30/25 07:23 Urine Protein Negative (Negative) 01/30/25 07:23 Urine Glucose (UA) Negative (Negative) 01/30/25 07:23 Urine Ketones 1+ (Negative) H 01/30/25 07:23 Urine Blood Negative (Negative) 01/30/25 07:23 Urine Nitrite Negative (Negative) 01/30/25 07:23 Urine Bilirubin Negative (Negative) 01/30/25 07:23 Urine Urobilinogen Negative (Negative) 01/30/25 07:23 Ur Leukocyte Esterase Negative (Negative) 01/30/25 07:23 U Random Total Protein 17 mg/dL (5-25) 01/30/25 20:14 Ur Creatinine mg/dL 53 mg/dL (20-320) 01/30/25 20:14 Protein/Creatinin Ratio 0.321 (0.025-0.148) H 01/30/25 20:14 Urine Albumin (%) 24 % 01/30/25 20:14 U Kpjvt-3-Uljszdax (%) 16 % 01/30/25 20:14 U Iyyfo-7-Urkzjysy (%) 27 % 01/30/25 20:14 U Beta Globulin (%) 12 % 01/30/25 20:14 U Gamma Globulin (%) 21 % 01/30/25 20:14 U Abnormal Prot Band 1 DNR mg/dL (NONE DETECTED) 01/30/25 20:14 U Abnormal Prot Band 2 DNR mg/dL (NONE DETECTED) 01/30/25 20:14 U Abnormal Prot Band 3 DNR mg/dL (NONE DETECTED) 01/30/25 20:14 Urine PEP Interpret SEE NOTE 01/30/25 20:14 Urine Comment 01/30/25 07:23 Fluid Comment 01/30/25 Unknown CSF Albumin Cancelled 01/30/25 11:08 CSF IgG Cancelled 01/30/25 11:08 CSF IgG Index Cancelled 01/30/25 11:08 CSF IgG Synthesis Rate Cancelled 01/30/25 11:08 CSF Myelin Basic Protein Cancelled 01/30/25 11:08 CSF IgG Oligoclonal Bnd Cancelled 01/30/25 11:08 Synovial Source Shoulder 01/30/25 Unknown Synovial Color Pale Yellow 01/30/25 Unknown Synovial Appearance Cloudy 01/30/25 Unknown Synovial WBC (Auto) 35005 /ul (0-200) H 01/30/25 Unknown Synovial RBC (Auto) 00172 /uL 01/30/25 Unknown Synovial Polynuclear % 98.6 % 01/30/25 Unknown Synovial Mononuclear % 1.4 % 01/30/25 Unknown Synovial Crystals 01/30/25 Unknown Nasal Screen MRSA (PCR) Negative (Negative) 01/30/25 Unknown Random Vancomycin 16.0 mcg/ml (10-20) 02/02/25 05:44 IgG Cancelled 01/30/25 11:08 Serum Immunofixation SEE NOTE 01/30/25 11:08 Albumin (LENO) Cancelled 01/30/25 11:08 Adenovirus (PCR) Not Detected (NotDetected) 01/30/25 04:52 Anaplasma Smear See Comment 01/30/25 04:55 Babesia Smear See Comment 01/30/25 04:55 B. pertussis DNA (PCR) Not Detected (NotDetected) 01/30/25 04:52 B.parapertussis DNA PCR Not Detected (NotDetected) 01/30/25 04:52 Lyme Disease Screen Negative (Negative) 01/30/25 04:55 C. pneumoniae DNA (PCR) Not Detected (NotDetected) 01/30/25 04:52 Coronavirus OC43 (PCR) Not Detected (NotDetected) 01/30/25 04:52 Coronavirus HKU1 (PCR) Not Detected (NotDetected) 01/30/25 04:52 Coronavirus 229E (PCR) Not Detected (NotDetected) 01/30/25 04:52 SARS-CoV-2 (PCR) Not Detected (NotDetected) 01/30/25 04:52 Coronavirus NL63 (PCR) Not Detected (NotDetected) 01/30/25 04:52 Human Metapneumovir PCR Not Detected (NotDetected) 01/30/25 04:52 Influenza Type A (PCR) Not Detected (NotDetected) 01/30/25 04:52 Influenza Type B (PCR) Not Detected (NotDetected) 01/30/25 04:52 M. pneumoniae (PCR) Not Detected (NotDetected) 01/30/25 04:52 Parainfluenza 1 (PCR) Not Detected (NotDetected) 01/30/25 04:52 Parainfluenza 2 (PCR) Not Detected (NotDetected) 01/30/25 04:52 Parainfluenza 3 (PCR) Not Detected (NotDetected) 01/30/25 04:52 Parainfluenza 4 (PCR) Not Detected (NotDetected) 01/30/25 04:52 RSV (PCR) Not Detected (NotDetected) 01/30/25 04:52 Entero/Rhino (PCR) Not Detected (NotDetected) 01/30/25 04:52 Impressions Arthrography Joint Steriod Inject 01/30/25 00:00 Fluoroscopic guided left shoulder joint aspiration INDICATION: Left shoulder joint effusion PROCEDURE: Procedure and risks were explained. Informed consent was obtained. A final timeout was completed. The left shoulder was prepped and draped in sterile fashion. 1% lidocaine was utilized for skin anesthesia. Utilizing fluoroscopic guidance, a 22-gauge spinal needle was advanced into the left shoulder joint capsule. Approximately 4 mL of cloudy viscous yellow-tinged fluid was aspirated and sent to lab for analysis. The needle was removed and Band-Aid applied. The patient tolerated the procedure well. Total fluoroscopy time 12 seconds. Study dose is 3.19mGy. IMPRESSION: Left shoulder joint aspiration as above. Performed, dictated, and signed by Sukhi Gabriel PA-C; to be co-signed by Dr. Zaheer Alfaro. Electronically signed by: Zaheer Alfaro M.D. 01/30/2025 2:48 PM Chest X-Ray 01/30/25 04:39 EXAM: XR chest 1V portable CLINICAL HISTORY: Sepsis TECHNIQUE: X-ray image of the chest obtained in 1 frontal projection. COMPARISON: Prior X-ray dated 01/10/2025 for comparison. FINDINGS: Pulmonary Parenchyma: New finding of subtle haziness in right mid zone, acute infective/inflammatory changes cannot be ruled out. Unchanged atelectatic bands in right lower zone. No evidence of consolidation, collapse. No evidence of pleural effusion or pleural thickening. Heart and Mediastinum: Heart size and shape are normal. Aortic calcifications seen. No mediastinal widening or masses. No hilar or mediastinal lymphadenopathy. Bony Thorax: Bony thorax appears intact without fractures or deformities. Soft Tissues: Soft tissues overlying the chest wall are unremarkable. IMPRESSION: 1. New finding of subtle haziness in right mid zone, acute infective/inflammatory changes cannot be ruled out. 2. Unchanged atelectatic bands in right lower zone. Electronically signed by Wesley Oshea 01-30-2025 06:02 AM Abdomen/Pelvis CT 01/30/25 05:13 EXAM: CT abd pelvis IV con only CLINICAL HISTORY: Fever, nausea. TECHNIQUE: CT of the abdomen and pelvis was performed, with the following protocol: axial images with, and reconstructed coronal and sagittal images. 118ml Opitray-320mg/ml Intravenous contrast was administered. One of the following dose reduction techniques was utilized for this exam: Automated exposure control, adjustment of the mA and/or kV according to patient size, and use of iterative reconstruction. COMPARISON: None. FINDINGS: Abdomen: Liver: Normal in size, shape, and density. No focal lesions, cysts, or masses were identified. Hepatic vasculature and biliary ducts are unremarkable. Gallbladder and Biliary System: The gallbladder is normal in size and shape. No wall thickening, pericholecystic fluid, or gallstones were identified. The common bile duct is normal in caliber without dilation. Pancreas: Pancreatic head, body, and tail are visualized and appear normal in size and density. No pancreatic masses or calcifications were noted. The pancreatic duct is not dilated. Spleen: Normal in size, shape, and density. No splenic lesions or masses were identified. Appendix: The appendix is not visualized. Kidneys and Adrenal Glands: Duplex left kidney. Both kidneys are normal in size, shape, and position. Cortical thickness is within normal limits. No renal calculi or hydronephrosis. Adrenal glands are unremarkable with no evidence of masses or hyperplasia. Pelvis: Urinary Bladder: Normal in contour and wall thickness. No intraluminal lesions identified. Prostate: Mildly enlarged in size with small calcifications. No focal lesions or masses were identified. Seminal Vesicles: Normal in size and appearance. No abnormalities noted. Rectum and Sigmoid Colon: Normal wall thickness and no evidence of mass. Peritoneal and Retroperitoneal Structures: No free fluid or abnormal fluid collections were identified within the abdomen or pelvis. No lymphadenopathy was noted. Advanced vascular calcifications of the aorta and its main branches. Bowel: The visualized bowel loops are normal in caliber and appearance. No evidence of bowel obstruction or wall thickening. Bones and Soft Tissues: Pelvic bones and soft tissues are unremarkable. No fractures or abnormal masses were identified. Right lower abdominal wall and inguinal mesh (post-hernia repair). Small left inguinal hernia containing fat. Mild atelectasis in the lower lung lobes. Advanced lumbar spondylotic changes with multilevel posterior disc osteophyte complexes. Lower thoracic vertebrae multiple sclerotic lesions (MRI or bone scan is advised if clinically indicated). Multiple lower ribs old fractures. IMPRESSION: 1. No evidence of acute intra-abdominal or pelvic pathology. 2. Lower thoracic vertebrae multiple sclerotic lesions (MRI or bone scan is advised if clinically indicated). 3. Other findings as described. Electronically signed by Wesley Oshea 01-30-2025 07:19 AM Chest CTA 01/30/25 05:13 EXAM: CT angio chest PE protocol CLINICAL HISTORY: PE TECHNIQUE: Contiguous 3.[address] angiographic images of the chest were acquired with the administration of intravenous contrast. Coronal and sagittal reconstructions were obtained. One of these 3D techniques was utilized: Maximum Intensity Pixel (MIP), 3D Reconstructed Images, Volume Rendered Images, Surface Shaded Rendering. One of the following dose reduction techniques were utilized for this exam: Automated exposure control, adjustment of the mA and/or kV according to patient size, and use of iterative reconstruction. COMPARISON: Prior X-ray dated 01/30/2025. FINDINGS: Aorta: Atherosclerotic wall calcifications in aorta. The thoracic aorta is normal in caliber. No evidence of aneurysm, dissection. Aortic arch and descending thoracic aorta are unremarkable. Pulmonary Arteries: Pulmonary arteries are normal in size and opacification. No evidence of pulmonary embolism. No stenosis or filling defects. Superior Vena Cava (SVC) and Inferior Vena Cava (IVC): Normal opacification and caliber. No evidence of thrombus or obstruction. Coronary Arteries: Coronary artery disease. Mediastinum: No mediastinal mass or lymphadenopathy. Normal appearance of the thymus. Heart: Normal size and morphology of the heart. Left ventricle myocardial hypertrophy seen. No pericardial effusion. Lungs: Few atelectatic bands in right middle lobe. Mild subpleural interstitial thickening and reticulations in posterior segments of both lower lobes. Wall thickening in segmental/subsegmental bronchi in both lower lobes likely bronchitis. No evidence of consolidation, nodules, or masses. No pleural effusion or thickening. Bones: Old healed fractures in multiple bilateral ribs. Spondylotic changes in thoracic spine. Multiple sclerotic lesions in lower thoracic vertebral bodies Normal alignment and bone density. Soft Tissues: Normal appearance of rest of visualized soft tissues. IMPRESSION: 1. No evidence of pulmonary embolism. 2. Few atelectatic bands in right middle lobe. 3. Mild subpleural interstitial thickening and reticulations in posterior segments of both lower lobes. 4. Wall thickening in segmental/subsegmental bronchi in both lower lobes likely bronchitis. 5. Subtle haziness in right mid zone in prior X-ray not appreciated in CT likely artefactual. 6. Cardiac left ventricle myocardial hypertrophy. 7. Multiple sclerotic lesions in lower thoracic vertebral bodies, need clinical correlation if needed, further work-up. Electronically signed by Wesley Oshea 01-30-2025 07:[address] 01/30/25 10:32 CT shoulder LT wo con HISTORY: 69 years-old Male pain, swelling, decr ROM history pain and swelling of the left shoulder with limited range of motion. COMPARISON: Chest radiograph and CTA chest studies of same day, chest CT 09/14/2023. TECHNIQUE: Axial CT images of the left shoulder were obtained without IV contrast. A dose lowering technique was used consistent with the principals of ALARA. FINDINGS: Demineralized appearance of the bones. Severe osteoarthritis of the glenohumeral joint with chronic remodeling. Degenerative related moderate to large joint effusion with intra-articular debris/ossified loose bodies again noted. Mild to moderate osteoarthritis of the AC joint. No acute fracture or dislocation identified. Prominent subcortical cystic changes of the humeral head. Synovial calcifications. Chronic healed nondisplaced left rib fractures. Scattered sclerotic foci involving a few ribs and vertebral bodies again noted, several w hich have increased in size from 09/14/2023. Fncu-qu-xvufzyow atrophy of the rotator cuff compatible with at least chronic partial-thickness tearing of the rotator cuff tendons. Lung garza are better evaluated on the same day CTA chest. Cardiomegaly with coronary artery calcifications. IMPRESSION: 1. No acute fracture or dislocation identified. 2. Severe glenohumeral osteoarthritis with chronic remodeling. 3. Degenerative related moderate to large glenohumeral joint effusion with synovial calcifications, intra-articular debris with calcified loose bodies. 4. Scattered nonspecific sclerotic foci of the vertebral bodies and ribs are again noted, mildly progressed from 09/14/2023. Findings can be correlated with serum PSA. ACT 112: Negative or not required by law. The above report was generated using voice recognition software. It may contain grammatical, syntax or spelling errors. Electronically signed by: Sammy Wright M.D. 01/30/2025 12:36 PM Shoulder MRI 01/30/25 12:37 MRI OF THE LEFT SHOULDER WITHOUT CONTRAST CLINICAL HISTORY: chronic erosive shoulder jt concern for infection COMPARISON STUDY: Left shoulder radiographs January 10, 2025. Left shoulder CT January 30, 2025. TECHNIQUE: Utilizing a 1.5 Rena magnet and dedicated coil, multiplanar, multiecho imaging of the left shoulder was performed without intravenous reticu lar or intravenous contrast. FINDINGS: This exam is moderately compromised by motion artifact. Severe glenohumeral chondrosis is noted with extensive bony remodeling of the glenoid and the humeral head, as shown on prior radiographs and CT. Intramedullary fat- containing signal abnormality within the left humeral head and neck may represent a bone infarct. Subchondral cystic change within the left humeral head is present. There is marked marrow edema within the left humeral head with patchy diminished T1 marrow signal. There is no significant marrow edema within the glenoid. Irregularity of the glenoid is probably chronic. No definite acute fractures are present. There is moderate osteoarthritis of the acromioclavicular joint. Of note, there is a large complex glenohumeral joint effusion which contains extensive material. There is also significant distention of the subacromial/subdeltoid bursa. A complex collection along the posterior aspect of the infraspinatus communicates with the joint space or bursa. Extensive soft tissue edema adjacent to the left shoulder is present. There is extensive intramuscular edema within multiple muscles of the left shoulder. Large full- thickness tear of supraspinatus with tendon retraction and muscular atrophy is present. The majority of infraspinatus is also fully torn. Mid to posterior fibers are partially intact. There is a large full-thickness tear subscapularis. There is a tear of the proximal long head biceps tendon. A normal-appearing labrum is not visualized. IMPRESSION: 1. Exam moderately compromised by motion artifact. 2. Markedly abnormal appearance of the glenohumeral joint consistent with severe chronic osteoarthritis with chronic remodeling of the left humeral head and glenoid. 3. Marked marrow edema within the left humeral head and neck with patchy diminished T1 marrow signal. This is likely on a degenerative basis. Although less likely, acute osteomyelitis could appear similar. 4. Large complex glenohumeral joint effusion and a markedly distended subacromial/subdeltoid bursa. Again, these findings are probably degenerative however an infectious process could appear similar and should be correlated with fluid sampling from recent aspiration. 5. Extensive rotator cuff tears, as described above. Tear of the proximal long head of the biceps tendon. 6. Extensive soft tissue edema adjacent to the left shoulder. Multifocal intramuscular edema. ACT 112: Negative or not required by law. Electronically signed by: Zaheer Alfaro M.D. 01/30/2025 2:30 PM Shoulder X-Ray 01/30/25 14:25 XR shoulder RT min 2V routine CLINICAL HISTORY: Right shoulder pain. COMPARISON: Chest radiograph January 10, 2025. FINDINGS: No acute fractures within the right shoulder identified. There is severe glenohumeral joint osteophytosis with chronic remodeling of the humeral head and glenoid. Findings appear similar to chest radiograph of January 10, 2025. There is no evidence for dislocation. Several round calcific densities along the superolateral aspect of the humeral head measure up to 6 mm. These could represent joint bodies. IMPRESSION: 1. No acute fracture or dislocation within the right shoulder. 2. Severe right glenohumeral joint osteoarthritis. ACT 112: Negative or not required by law. Electronically signed by: Zaheer Alfaro M.D. 01/30/2025 2:42 PM Ordered Studies 01/30/25 IR inj majr joint sh,hip,kn LT Routine 01/30/25 05:13 CT abd pelvis IV con only Stat CT angio chest PE protocol Stat 01/30/25 10:32 CT shoulder LT wo con Urgent 01/30/25 12:37 MRI Shoulder [MR shoulder LT wo con] Urgent Hospital Course (1) Sepsis: (2) Left shoulder pain: (3) Chronic inflammatory demyelinating neuropathy: (4) Long-term current use of steroids: (5) Asthma: (6) Allergic bronchopulmonary aspergillosis: (7) HTN (hypertension): Plan 69 year old male with PMH significant for severe persistent asthma, allergic bronchopulmonary aspergillosis, JOANN not on CPAP, chronic sinusitis, hyp ertension, mild aortic valve stenosis, osteoporosis, chronic inflammatory demyelinating polyneuropathy, and hearing loss of right ear who presented to the ED on 01/30/2025 with fevers, left shoulder pain, and nausea and is admitted for possible sepsis. Sepsis--POA Left shoulder septic joint--POA Underlying rotator cuff tear arthropathy --Shoulder MRI:Markedly abnormal appearance of the glenohumeral joint consistent with severe chronic osteoarthritis with chronic remodeling of the left humeral head and glenoid. Marked marrow edema within the left humeral head and neck with patchy diminished T1 marrow signal. This is likely on a degenerative basis. Although less likely, acute osteomyelitis could appear similar. Large complex glenohumeral joint effusion and a markedly distended subacromial/subdeltoid bursa. Again, these findings are probably degenerative however an infectious process could appear similar and should be correlated with fluid sampling from recent aspiration. Extensive rotator cuff tears, as described above. Tear of the proximal long head of the biceps tendon. Extensive soft tissue edema adjacent to the left shoulder. Multifocal intramuscular edema. -- Blood cultures negative to date --Synovial fluid cultures grew MSSA -- Received IV fluids --Continue IV vancomycin, Zosyn>> IV cefazolin --Appreciate orthopedics input: No emergent for washout of the shoulder. --Appreciate infectious disease input: Needs 4 to 6-week course of antibiotics post debridement. --Needs to follow-up with orthopedic surgery at tertiary care facility on discharge for definitive treatment --PICC placed today Plan to discharge home with home health today Needs follow-up with orthopedic surgeon at [facility] in 1 week--already scheduled per record/orthopedic. 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 EF 60 to 65%. Aortic valve is moderately calcified. Moderate valvular aortic stenosis. Grade 1 diastolic dysfunction. --Will need lumbar puncture/Bone Scan and Hematology eval eventually likely as outpatient Advised to follow-up with hematology/oncology as outpatient Chronic inflammatory demyelinating polyneuropathy Follows with [facility] Neurology last seen Jul 2024 Receives IVIG monthly (x4 days in a row once a month) - next due 02/03-02/06 Continue duloxetine and gabapentin Appreciate neurology input Continue prednisone for CIDP Severe persistent asthma Allergic bronchopulmonary aspergillosis Chronic sinusitis/rhinitis Follows with [facility] Pulmonology last seen August 2024 Biofire negative VBG WNL --Chest CTA no PE; atelectatic bands in right middle lobe; mild subpleural interstitial thickening in posterior segments of both lower lobes; wall thickening in bronchi in both lower lobes likely bronchitis; cardiac LV myocardial hypertrophy Continue inhalers, montelukast and mometasone Appreciate pulmonology input Hypertension Blood pressure elevated likely situational secondary to pain Continue metoprolol, torsemide Added amlodipine 5 mg daily Hydralazine as needed Blood pressure variable Continue current medications Mood disorder Continue home medications DVT Px: SQ Lovenox CODE STATUS Full code Disposition: Home with home health Total Time Total Time Spent Total Time Spent (In Minutes): 54 minutes Discharge Plan Discharge Items Patient Disposition: Home - Home Health Services Reason For Visit: POSSIBLE SEPSIS Discharge Diagnosis: Septic joint of left shoulder region Sepsis Chronic Rotator cuff tear arthropathy Multiple sclerotic lesions of thoracic vertebrae Hypertension Condition on Discharge: Fair Activity: Per Instructions section Exercise/Sports: Wait until after follow-up appointment Non-emergency contact: Primary Care Provider, Surgeon and Specialist Call non-emergency contact if: you have any medication questions, your symptoms worsen, your pain is concerning for you and you have a fever Follow-up/Referrals: Shanna Conner MD [Primary Care Provider] - (Date & Time 02/09/2025 9:00 AM Provider: Shanna Oneill MD Family Medicine [facility]) John Dodge, DO [Physician] - Diet: Heart Healthy Mate[place] Attending Provider Instructions: -- Follow-up with your primary care physician on 02/09/2025 9:00 AM -- Follow-up with your orthopedic surgeon at [facility] next week as scheduled --Follow-up with hematology oncology (as soon as possible) for further evaluation of vertebral sclerotic lesions as advised --Continue IV cefazolin 2 g every 8 hours until further recommendations from your orthopedic surgeon/infectious disease at [facility]. Duration of antibiotics to be determined by your physicians. --Get blood test(CBC, BMP) weekly while on IV antibiotics and follow-up with your physician with results for further recommendations. -- Monitor your blood pressure regularly at home. Your primary care physician to adjust medications as needed. Seek immediate medical attention if your symptoms reoccur or worsen Please review medication list provided on discharge for any medication changes as instructed. Please call if you have any questions or problems. You can reach a [facility] hospitalist on duty at [facility] 24 hours a day by calling [phone] [employer] Provider Instructions: PICC line placement IV Ancef Pain control with p.o. meds DVT prophylaxis per medicine service Follow-up in [place] with the shoulder joint specialist next Sunday as scheduled. Also meet with infectious disease Weekly CBC, CMP, ESR and CRP will most likely be ordered by medicine service Case management for discharge planning Pending Studies at Discharge: Yes (Blood cultures) Stand-Alone Forms: [facility], Smoking Cessation Medications and DC Order Prescriptions: New amlodipine 5 mg Tablet 5 mg PO QAM Qty: 30 1RF Advanced Probiotic 625 mg (10 billion cell) Capsule 1 cap PO DAILY Qty: 30 0RF cefazolin 2 gram recon soln 2 g IV Q8H Continued albuterol sulfate 2.5 mg /3 mL (0.083 %) solution for nebulization 1 vial Continuous Nebulization Q4 PRN (Reason: Shortness Of Breath Or Wheezing) fluticasone propion-salmeterol 500-50 mcg/dose blister with device 1 puff Inhalation BID albuterol sulfate 90 mcg/actuation HFA aerosol inhaler 2 puff Inhalation Q4 PRN (Reason: Shortness Of Breath Or Wheezing) mometasone 50 mcg/actuation spray,non-aerosol 2 spray Intranasal DAILY montelukast 10 mg tablet 10 mg PO QAM metoprolol succinate 25 mg tablet extended release 24 hr 25 mg PO QAM Patient Comments: Can take 100mg by mouth daily during IVIG treatment days. Rx Instructions: Take 25mg by mouth in the morning; Can take 100mg by mouth daily during IVIG treatment days. Nucala 100 mg Recon Soln 100 mg SUBCUT UD Rx Instructions: 1 injection every 4 weeks Spiriva Respimat 2.5 mcg/actuation mist 2 puff INHALATION QAM cyclobenzaprine 5 mg tablet 5 mg PO BID PRN (Reason: Muscle Spasm) duloxetine 60 mg capsule,delayed release(DR/EC) 60 mg PO DAILY gabapentin 100 mg capsule 100 - 300 mg PO HS Rx Instructions: Pt can take up to 300mg if needed torsemide 10 mg tablet 10 mg PO QAM hydralazine 25 mg Tablet 25 mg PO Q4H PRN (Reason: When BP is over 160/100) Patient Comments: Pt usually only takes during IVIG treatment days. Rx Instructions: Pt usually only takes during IVIG treatment days. potassium chloride 20 mEq tablet,ER particles/crystals 40 meq PO QAM prednisone 10 mg Tablet 10 mg PO DAILY Discharge Orders: Discharge Order (Routine); Ordered 02/03/25 Ordered By: James Colmenares Admission Data Admit Date/Time: 01/30/25 08:55 Attending Provider: James Colmenares Admit Provider: James Colmenares Primary Care Provider: Shanna Conner Other Providers: James Colmenares; Amy Guerra; Ramin Uriostegui; Amy Maxwell; Yandel Velazquez; Jamil Chambers; John Dodge; Carlos Kang; Sofiya Preston; Gary Gracia; Scott Sidhu; Masha Ricardo; Kei Aguilera; Mera Buenrostro; Carlos Zapata; Tara Eaton M; Jeni Cullen; Jayy Bond; José Miguel Luu; Zay Bagley th; Taylor,Sukhdev; Scott Brunner; Tee Rasheed; Blair Guerrero I.; Keyur Lynne II; Neema Garcia; Meek Charlton; Audi Gordon; Cherelle Watson
== END 2025-02-03 15:47 | disposition home health service (06) | DRG 872 ==
LOC: ED 04:18 → 4W 08:55